=== PATIENT | male | born 1965 | race African-American/Black ===

== ENCOUNTER → 2020-06-26 07:39 | Outpatient (REF) | payer BC, SELFPAY ==
--- NOTE | 2020-06-26 07:30 | CA_ITS ---
Transthoracic Echocardiogram Patient (Last, First, Middle): Quintin Chacon D Gender: Male Date of : 1965 Age: 55 Procedure Date: 06/26/2020 Procedure Type: Transthoracic Echocardiogram Location: OP Height: 175.26 cm Weight: 94.8 kg BSA: 2.10 m2 Heart Rate: bpm BP: 140 / 80 mmHg Landfill Grader: Gregory MD: Ugo Quintero MD Symptoms: Chronic right heart failure Study Quality: Good ECG Rhythm: Sinus Conclusions: - Moderately increased right ventricular cavity size. There is normal right ventricular systolic function. - The inferior vena cava is normal in size and collapses greater than 50% with inspiration. Findings Right Ventricle Moderately increased right ventricular cavity size. There is normal right ventricular systolic function. There is a pacemaker wire seen in the right ventricle. Tricuspid Valve There is mild tricuspid valve regurgitation. Top normal pulmonary artery pressure. Venous The inferior vena cava is normal in size and collapses greater than 50% with inspiration. Prior Study Comparison Changes noted compared to prior study dated: 04/10/2020. Right atrial pressure seems improved. No definite evidence of right ventricular volume overload. Measurements 2D Linear Measurements RVIDd: 3.55 RVIDd Index: 1.69 Tricuspid Valve TR Pk Andrei: 2.82 TR Pk Grad: 32.00 RA Press: 8.00 RVSP: 35.00 Updated in Other Vendor System with Status of Final Ugo Quintero MD electronically signed on 06/28/2020 12:54:42 PM with status of Final
== END ==
LOC: HO.CARD 07:39
PROVIDERS: Visit Provider Internal Medicine
DX: I50.812 Chronic right heart failure (principal)
CPT/HCPCS: 93308

== ENCOUNTER → 2020-07-10 09:22 | Outpatient (REF) | payer BC, SELFPAY ==
--- NOTE | 2020-07-10 09:30 | CA_ITS ---
Acquisition Time: 2020-07-10 09:34:08 Total Exercise Time: 00:02:00 Test Indications: i50.812 Medications: see chart Protocol: LEXISCAN Max HR: 109 BPM 66% of Pred: 165 BPM Max BP: 118/078 mmHG Max Work Load: 1.0 METS Pharmacological stress test using Lexiscan while sitting. Pt denies any anginal sx. EKG with no change V-paced. Normotensive response to test. However 2min and 31 sec into recovery pt was drinking soda and started spilling his drink and was clenching his hand while holding the cup. Pt's eyes closed, not responding to verbal stimuli. Pt drooling, episode lasted about 10 sec. Normal neuro checks, post episode, pt atert and orientd after the episode. Suspected seizure activity VS TIA called ED, spoke with Dr. Oleary,. Pt send with A RN in . Pt agreable to plan of care at this point. Nuclear portion on hold till pt is evaluated in the ED. Reviewed with Dr. Gutierrez. Referred By: Ugo Quintero Overread By: Gema Simons
== END ==
LOC: HO.CARD 09:22
PROVIDERS: Visit Provider Internal Medicine
DX: I50.812 Chronic right heart failure (principal); I44.30 Unspecified atrioventricular block; I10 Essential (primary) hypertension; E11.8 Type 2 diabetes mellitus with unspecified complications; E78.5 Hyperlipidemia, unspecified; Z95.0 Presence of cardiac pacemaker
CPT/HCPCS: 93017; J0280; J2785

== ENCOUNTER 2020-07-10 10:46 | Emergency (ER) | payer BC, SELFPAY ==
[2020-07-10 10:55] VITALS: PULSE 83; RESP 17; TEMP 36.8; O2SAT 99; BMI 31.6
--- NOTE | 2020-07-10 11:34 | CT_ITS ---
EXAMINATION: CT HEAD WITHOUT CONTRAST CLINICAL INFORMATION: First time seizure. Age 55. COMPARISON: None TECHNIQUE: Contiguous axial imaging was performed from the skull base to vertex without intravenous administration of contrast. Additional 2-D coronal and sagittal reformatted images are generated on the CT workstation and uploaded to PACS. Some images through the top of the head are repeated due to initial motion. DOSE LOWERING TECHNIQUES: This CT examination was performed using dose optimization techniques as appropriate, variously including the following: *Automated exposure control *Adjustment of mA and/or kV according to patient size (this includes techniques or standardized protocols for targeted exams where dose is matched to indication/reason for exam; i.e. extremities or head) *Use of iterative reconstruction technique DLP: 1093 mGy-cm FINDINGS: There is no intracranial hemorrhage, hematoma, or extra-axial fluid collection. The ventricles are normal in size. There is no hydrocephalus, edema, or mass effect. The tracy-white matter differentiation appears symmetric. There is no visible acute territorial infarct or mass lesion. The calvarium appears intact. There is no pneumocephalus or orbital emphysema. The visualized sinuses and middle ears and mastoid air cells show no significant mucosal thickening. There are no air-fluid levels. CT/CT head/brain wo con IMPRESSION: No acute intracranial abnormality.
[2020-07-10 11:54] LABS: Glucose, Whole Blood 156 mg/dL (60-115)
[2020-07-10 11:57] LABS: MANUAL DIFF FLAG NO
[2020-07-10 12:01] LABS: Basophils Percent Auto 0.6 % (0-2); Eosinophils Absolute Auto 0.1 X10*3/uL (0.0-0.4); Eosinophils Percent Auto 0.9 % (0-4); Hematocrit 33.6 % (42-52); Hemoglobin 10.7 g/dl (14.0-18.0); Imm Gran Abs Auto 0.02 X10*3/uL (0.00-0.03); Imm Gran Pct Auto 0.4 % (0.0-0.4); Lymphocytes Absolute Auto 0.9 X10*3/uL (1.2-4.9); Mean Corpuscular HGB Conc 31.8 g/dl (31.0-36.0); Mean Corpuscular Hemoglobin 25.6 pg (27.0-33.0); Mean Corpuscular Volume 80.4 fL (80-98); Monocytes Absolute Auto 0.6 X10*3/uL (0.1-1.2); Monocytes Percent Auto 11.2 % (2-11); Neutrophils Absolute Auto 3.9 X10*3/uL (2.0-8.3); Neutrophils Percent Auto 70.9 % (45-73); Platelet Count 205 X10*3/uL (160-400); Red Blood Count 4.18 X10*6/uL (4.60-5.80); Red Cell Distribution Width 13.5 % (11.0-16.0); White Blood Count 5.4 X10*3/uL (4.8-10.8)
--- NOTE | 2020-07-10 12:01 | ED_ITS ---
HPI - General Adult General Chief complaint: Seizure Stated complaint: Seizure Time Seen by Provider: 07/10/20 11:14 Source: patient Mode of arrival: wheelchair Limitations: no limitations History of Present Illness HPI narrative: Patient comes to the emergency room after having as seizure. Earlier this morning, patient was in a stress test with Lexiscan IV, per cardiology staff report, patient had seizure-like activity including teeth clenching, looking up of upper extremity joints. Patient does not remember this. Patient states he feels tired. Patient does not have history of any seizures. At this time, patient feels within normal limits. Related Data Previous Rx's Medication Instructions Recorded hydralazine 100 mg tablet 100 mg PO TID 30 Days #90 tab 06/25/20 spironolactone 25 mg tablet 50 mg PO QAM #30 tab 07/03/20 bumetanide 1 mg tablet 2 mg PO BID #60 tab 07/08/20 Allergies Allergy/AdvReac Type Severity Reaction Status Date / Time No Known Allergies Allergy Unverified 07/03/20 12:01 N.K.D.A. Allergy Unknown Uncoded 07/03/20 12:01 Review of Systems Review of Systems: Constitutional : No Weight loss, No Fever, No Chills, No Night Sweats, No Fatigue, No Malaise ENT/Mouth : No Hearing loss, No Ear Pain, No Nasal Congestion, No Sinus Pain, No Hoarseness, No sore throat, No Rhinorrhea, No Swallowing Difficulty Eyes: No Eye Pain, No Swelling, No Redness, No Foreign Body, No Discharge, No Vision Changes Cardiovascular : No Chest Pain, No SOB, No Dyspnea on Exertion, No Orthopnea, No Edema, No Palpitations Respiratory : No Cough, No Sputum, No Wheezing, No Smoke Exposure, No Dyspnea Gastrointestinal : No Nausea, No Vomiting, No Diarrhea, No Constipation, No abdominal Pain, No Hematochezia, No Melena Genitourinary : no irregular bleeding, No Dysuria, No Urinary Frequency, No Hematuria, No Urinary Incontinence, No Urgency, No Flank Pain, No Urinary Flow Changes, No Hesitancy Musculoskeletal : No joint pain, No Myalgias, No Joint Swelling Skin : No Skin Lesions, No rash Neuro : No Weakness, No Numbness, No Paresthesias, Possible seizure-like activity Psych : No Anxiety/Panic, No Depression, No SI/HI/AH/VH, No Social Issues, Heme/Lymph: No Bruising, No Bleeding,No Lymphadenopathy Endocrine : No Polyuria, No Polydipsia, No Temperature Intolerance [facility] Past Medical History Medical History (Updated 07/10/20 @ 16:00 by Gloria Oleary MD) CKD (chronic kidney disease) Heart block Hypertension Pacemaker Type 2 diabetes mellitus Social History Social History (System 07/03/20 @ 12:01 by Shahab Ortega) Smoking Status: Never smoker Advance Directives: No Advance Directives Information Provided: Yes Physical Exam Vital Signs: Vital Signs: Vital Signs Temp Pulse Resp BP Pulse Ox 07/10/20 14:00 98.2 F 81 20 164/94 H 07/10/20 10:55 98.2 F 83 17 99 Body Mass Index 31.6 Appearance: Alert. Oriented X3. No acute distress. Eyes: Pupils equal, round and reactive to light. ENT: Pharynx normal. Neck: Normal inspection. Neck supple. No lymph nodes noted. No crepitus CVS: Normal heart rate and rhythm. Pulses normal. Normal S1 and S2 Respiratory: No respiratory distress. Breath sounds normal. No Wheezing. No rales Abdomen: Soft and nontender. No rigidity. No distention. good BS x4 Skin: Skin warm and dry. Normal skin color. Normal skin turgor. Extremities: No lower extremity edema. No lower extremity edema. No Lacerations. No Rash Neuro: Oriented X 3. No motor deficit. No sensory deficit. Moving all extermities. No slurred speech. Course Course Course Narrative: I discussed the labs and imaging with the patient, at this time, seizure is not suspected, patient likely had as near syncopal episode after the chemical stress tests. Since the patient arrived emergency room, he has been completely asymptomatic. Denies any chest pain, no shortness of breath no dizziness. Patient instructed to follow-up with cardiology as he will need to reschedule his health Medical Decision Making MDM Narrative Medical decision making narrative: seizure is not suspected, patient is asymptomatic. Lab Data Result diagrams: 07/10/20 11:50 07/10/20 11:50 Labs: Lab Results 07/10/20 07/10/20 07/10/20 Range/Units 11:46 11:50 11:50 WBC 5.4 (4.8-10.8) X10*3/uL RBC 4.18 L (4.60-5.80) X10*6/uL Hgb 10.7 L (14.0-18.0) g/dl Hct 33.6 L (42-52) % MCV 80.4 (80-98) fL MCH 25.6 L (27.0-33.0) pg MCHC 31.8 (31.0-36.0) g/dl RDW 13.5 (11.0-16.0) % Plt Count 205 (160-400) X10*3/uL MPV 10.0 (9.4-12.4) fL Immature Gran % (Auto) 0.4 (0.0-0.4) % Neut % (Auto) 70.9 (45-73) % Lymph % (Auto) 16.0 L (20-40) % [place] % (Auto) 11.2 H (2-11) % Eos % (Auto) 0.9 (0-4) % Baso % (Auto) 0.6 (0-2) % Lymph # (Auto) 0.9 L (1.2-4.9) X10*3/uL [place] # (Auto) 0.6 (0.1-1.2) X10*3/uL Eos # (Auto) 0.1 (0.0-0.4) X10*3/uL Baso # (Auto) 0.0 (0.0-0.2) X10*3/uL Abs Immat Gran (auto) 0.02 (0.00-0.03) X10*3/uL Absolute Neuts (auto) 3.9 (2.0-8.3) X10*3/uL Absolute Nucleated RBC 0.000 (0.0-0.012) X10*3/uL Nucleated RBC % (auto) 0.0 (0.0-0.2) /100WBC Sodium 135 (135-145) mmol/L Potassium 4.6 (3.3-5.1) mmol/l Chloride 99 (96-108) mmol/L Carbon Dioxide 27 (22-29) mmol/L Anion Gap 14 (12-20) BUN 58 H (9-16) mg/dL Creatinine 2.00 H (0.5-1.4) mg/dL Estim Creat Clear Calc 47.9 Estimated GFR 35 POC Glucose 156 H (60-115) mg/dL Random Glucose 159 H (60-115) mg/dL Lactic Acid (0.5-2.0) mmol/L Calcium 9.0 (8.4-10.2) mg/dL Troponin I High Sens (<3.5-35.0) ng/L 07/10/20 07/10/20 Range/Units 11:50 14:20 WBC (4.8-10.8) X10*3/uL RBC (4.60-5.80) X10*6/uL Hgb (14.0-18.0) g/dl Hct (42-52) % MCV (80-98) fL MCH (27.0-33.0) pg MCHC (31.0-36.0) g/dl RDW (11.0-16.0) % Plt Count (160-400) X10*3/uL MPV (9.4-12.4) fL Immature Gran % (Auto) (0.0-0.4) % Neut % (Auto) (45-73) % Lymph % (Auto) (20-40) % [place] % (Auto) (2-11) % Eos % (Auto) (0-4) % Baso % (Auto) (0-2) % Lymph # (Auto) (1.2-4.9) X10*3/uL [place] # (Auto) (0.1-1.2) X10*3/uL Eos # (Auto) (0.0-0.4) X10*3/uL Baso # (Auto) (0.0-0.2) X10*3/uL Abs Immat Gran (auto) (0.00-0.03) X10*3/uL Absolute Neuts (auto) (2.0-8.3) X10*3/uL Absolute Nucleated RBC (0.0-0.012) X10*3/uL Nucleated RBC % (auto) (0.0-0.2) /100WBC Sodium (135-145) mmol/L Potassium (3.3-5.1) mmol/l Chloride (96-108) mmol/L Carbon Dioxide (22-29) mmol/L Anion Gap (12-20) BUN (9-16) mg/dL Creatinine (0.5-1.4) mg/dL Estim Creat Clear Calc Estimated GFR POC Glucose (60-115) mg/dL Random Glucose (60-115) mg/dL Lactic Acid 1.6 (0.5-2.0) mmol/L Calcium (8.4-10.2) mg/dL Troponin I High Sens 18.2 (<3.5-35.0) ng/L Discharge Plan Discharge Clinical Impression: Near syncope Patient Disposition: Home, Self-Care Instructions: Near Syncope (ED) Additional Instructions: please follow-up with your manager drive, you have an appointment next week. Please follow-up with your primary care physician tomorrow. If you have any worsening or new symptoms, please return to the emergency room or call 911 Prescriptions: No Action hydralazine 100 mg tablet 100 mg PO TID 30 Days Qty: 90 RF: 3 spironolactone 25 mg tablet 50 mg PO QAM Qty: 30 RF: 0 bumetanide 1 mg tablet 2 mg PO BID Qty: 60 RF: 7
[2020-07-10 12:28] LABS: Lactic Acid 1.6 mmol/L (0.5-2.0)
[2020-07-10 12:29] LABS: Anion Gap 14 (12-20); Blood Urea Nitrogen 58 mg/dL (9-16); Carbon Dioxide 27 mmol/L (22-29); Chloride 99 mmol/L (96-108); Creatinine Clr Calc Pharmacy 47.9; Estimated Glomerular Filt Rate 35; Glucose Random 159 mg/dL (60-115); Potassium 4.6 mmol/l (3.3-5.1); Sodium 135 mmol/L (135-145)
[2020-07-10 14:00] VITALS: BP 164/94; PULSE 81; RESP 20; TEMP 36.8
[2020-07-10 15:02] LABS: Troponin-I High Sensitivity 18.2 ng/L (<3.5-35.0)
--- NOTE | 2020-07-10 16:13 | PC.NURSE ---
PT IS ALERT AND ORIENTED NO SEIZURE ACTIVITY NOTED DURING THE ED VISIT
== END 2020-07-10 16:22 | disposition home or self-care (01) ==
PROVIDERS: Emergency Provider Emergency Medicine
DX: R56.9 Unspecified convulsions (principal); R55 Syncope and collapse; I12.9 Hypertensive chronic kidney disease with stage 1 through stage 4 chronic kidney disease, or unspecified chronic kidney disease; E11.22 Type 2 diabetes mellitus with diabetic chronic kidney disease; N18.9 Chronic kidney disease, unspecified; Z79.899 Other long term (current) drug therapy
CPT/HCPCS: 36415; 70450; 80048; 82947; 83605; 84484; 85025; 99284

== ENCOUNTER → 2020-07-31 08:54 | Outpatient (BNVA) | payer BC, SELFPAY | PROVIDERS: Visit Provider Internal Medicine | DX: Z76.89 Persons encountering health services in other specified circumstances (principal) ==

== ENCOUNTER 2020-08-29 08:42 | Outpatient (REF) | payer BC, SELFPAY ==
[2020-08-29 15:44] LABS: Estimated Average Glucose 174 mg/dL; Hemoglobin A1c % 7.7 %
[2020-08-29 16:04] LABS: Anion Gap 12 (12-20); Blood Urea Nitrogen 36 mg/dL (9-16); Calcium 8.5 mg/dL (8.4-10.2); Carbon Dioxide 27 mmol/L (22-29); Chloride 102 mmol/L (96-108); Estimated Glomerular Filt Rate 39; Glucose Random 251 mg/dL (60-115); Potassium 3.9 mmol/l (3.3-5.1); Sodium 137 mmol/L (135-145)
[2020-08-29 16:06] LABS: B Type Natriuretic Peptide 69 pg/mL (<100)
[2020-09-04 06:17] LABS: Fructosamine 324 umol/L (205-285)
== END 2020-08-29 08:43 | disposition home or self-care (01) ==
LOC: HO.LAB 08:42
PROVIDERS: Internal Medicine; PCP Internal Medicine; Referring Provider Internal Medicine; Visit Provider Nurse Practitioner Gerontology
DX: E11.29 Type 2 diabetes mellitus with other diabetic kidney complication (principal); R80.9 Proteinuria, unspecified; E78.5 Hyperlipidemia, unspecified; I10 Essential (primary) hypertension
CPT/HCPCS: 80048; 82985; 83036; 83880

== ENCOUNTER → 2020-09-02 08:33 | Outpatient (BNVA) | payer BC, SELFPAY | PROVIDERS: PCP Internal Medicine; Visit Provider Internal Medicine | DX: Z76.89 Persons encountering health services in other specified circumstances (principal) ==

== ENCOUNTER 2020-12-23 17:22 | Inpatient (IN) | payer BC, SELFPAY ==
--- NOTE | ~2020-12-23 | XR_ITS ---
EXAMINATION: XR TOES, RIGHT CLINICAL INFORMATION: Osteomyelitis COMPARISON: None TECHNIQUE: 3 views of the right toes were obtained. FINDINGS: Degenerative changes are present at the tarsal metatarsal junctions. Mild hallux valgus is present. Vascular calcifications are seen. There is soft tissue swelling present around the fifth toe and there is some mottled lucency present in the proximal fifth phalanx. Cortical destruction is not seen. XR/XR toe RT min 2V IMPRESSION: Mild lucency involving the fifth proximal phalanx. No pathologic fracture is seen. Osteomyelitis would be a consideration. Unfortunately, no prior radiographs are available for comparison.
[2020-12-23 18:07] VITALS: BP 123/70; PULSE 98; RESP 15; TEMP 36.7; O2SAT 98; BMI 34.0
[2020-12-23 21:52] LABS: MANUAL DIFF FLAG NO
[2020-12-23 22:00] VITALS: BP 185/95; PULSE 93; RESP 16; TEMP 37.6; O2SAT 97
[2020-12-23 22:00] LABS: Basophils Percent Auto 0.2 % (0-2); Eosinophils Absolute Auto 0.1 X10*3/uL (0.0-0.4); Eosinophils Percent Auto 0.5 % (0-4); Hematocrit 27.5 % (42-52); Hemoglobin 8.8 g/dl (14.0-18.0); Imm Gran Abs Auto 0.11 X10*3/uL (0.00-0.03); Imm Gran Pct Auto 0.7 % (0.0-0.4); Lymphocytes Absolute Auto 1.3 X10*3/uL (1.2-4.9); Lymphocytes Percent Auto 8.1 % (20-40); Mean Corpuscular Hemoglobin 25.7 pg (27.0-33.0); Mean Corpuscular Volume 80.2 fL (80-98); Mean Platelet Volume 9.9 fL (9.4-12.4); Monocytes Absolute Auto 1.3 X10*3/uL (0.1-1.2); Monocytes Percent Auto 7.7 % (2-11); Neutrophils Absolute Auto 13.7 X10*3/uL (2.0-8.3); Neutrophils Percent Auto 82.8 % (45-73); Platelet Count 364 X10*3/uL (160-400); Red Blood Count 3.43 X10*6/uL (4.60-5.80); Red Cell Distribution Width 12.8 % (11.0-16.0); White Blood Count 16.5 X10*3/uL (4.8-10.8)
[2020-12-23 22:12] LABS: Lactic Acid 0.7 mmol/L (0.5-2.0)
[2020-12-23 22:16] LABS: INTERNATIONAL NORM RATIO 1.2 (0.9-1.1); Prothrombin Time 14.4 SEC (10.8-13.0)
[2020-12-23 22:16] LABS: Alanine Aminotransferase 19 U/L (0-40); Albumin Level 3.5 g/dL (3.5-5.0); Alkaline Phosphatase 67 U/L (39-117); Anion Gap 14 (12-20); Aspartate Amino Transferase 16 U/L (5-37); Bilirubin Direct 0.2 mg/dL (0.0-0.5); Bilirubin Total 0.4 mg/dL (0.0-1.0); Blood Urea Nitrogen 40 mg/dL (9-16); Calcium 8.6 mg/dL (8.4-10.2); Carbon Dioxide 23 mmol/L (22-29); Chloride 101 mmol/L (96-108); Creatinine Clr Calc Pharmacy 51.2; Estimated Glomerular Filt Rate 36; Glucose Random 203 mg/dL (60-115); Potassium 3.9 mmol/L (3.3-5.1); Sodium 134 mmol/L (135-145); Total Protein 7.5 g/dL (6.5-8.0)
[2020-12-23 22:19] LABS: Partial Thromboplastin Time 31.5 SEC (24.1-38.0)
--- NOTE | 2020-12-23 23:26 | ED.EXTPRO ---
HPI - Extremity Problem General Chief complaint: Extremity Problem Stated complaint: toe infection Time Seen by Provider: 12/23/20 23:19 History of Present Illness HPI Narrative: Patient is a 55-year-old male presents today with having pain to the right pinky toe for the last 2 weeks. Increasing swelling. Increasing pain. Patient noticed increased foul odor. Presented to the emergency department further evaluation. No fever no chills. No chest pain or shortness of breath no diaphoresis. No systemic complaints. MD Complaint: extremity pain Related Data Home Medications Medication Instructions Recorded Confirmed isosorbide mononitrate 60 mg 60 mg PO DAILY 07/31/20 09/02/20 tablet,extended release 24 hr tamsulosin 0.4 mg capsule 0.4 mg PO DAILY 07/31/20 09/02/20 alcohol swabs pad TOPICAL 08/29/20 09/02/20 ferrous sulfate 325 mg (65 mg 325 mg PO DAILY 08/29/20 08/29/20 iron) tablet,delayed release insulin glargine 100 unit/mL (3 5 unit SUBCUT ml 08/29/20 09/02/20 mL) subcutaneous pen lancets 33 gauge #100 ea 08/29/20 09/02/20 pen needle, diabetic 32 gauge x #50 ea 08/29/20 09/02/20 Previous Rx's Medication Instructions Recorded amlodipine 10 mg tablet 10 mg PO DAILY 90 Days #90 tab 08/22/20 hydralazine 100 mg tablet 100 mg PO TID 30 Days #90 tab 08/28/20 atorvastatin 40 mg tablet 40 mg PO BEDTIME #90 tab 08/29/20 metformin 500 mg tablet 500 mg PO BID #180 tab 08/29/20 labetalol 100 mg tablet 100 mg PO BID #180 tab 10/15/20 blood sugar diagnostic 1 strip MISCELLANEOUS TID 30 Days 10/26/20 #100 strip bumetanide 1 mg tablet 2 mg PO BID #60 tab 12/12/20 spironolactone 25 mg tablet 50 mg PO QAM #30 tab 12/17/20 Allergies Allergy/AdvReac Type Severity Reaction Status Date / Time regadenoson [From [employer]] AdvReac Severe seizure Verified 12/23/20 14:51 type activity Review of Systems Review of Systems: Constitutional: No Weight loss, No Fever, No Chills, No Night Sweats, No Fatigue, No Malaise ENT/Mouth: No Hearing loss, No Ear Pain, No Nasal Congestion, No Sinus Pain, No Hoarseness, No sore throat, No Rhinorrhea, No Swallowing Difficulty Eyes: No Eye Pain, No Swelling, No Redness, No Foreign Body, No Discharge, No Vision Changes Cardiovascular: No Chest Pain, No SOB, No Dyspnea on Exertion, No Orthopnea, No Edema, No Palpitations Respiratory: No Cough, No Sputum, No Wheezing, No Smoke Exposure, No Dyspnea Gastrointestinal: No Nausea, No Vomiting, No Diarrhea, No Constipation, No abdominal Pain, No Hematochezia, No Melena Genitourinary: no irregular bleeding, No Dysuria, No Urinary Frequency, No Hematuria, No Urinary Incontinence, No Urgency, No Flank Pain, No Urinary Flow Changes, No Hesitancy Musculoskeletal: No joint pain, No Myalgias, No Joint Swelling Skin: Positive necrotic toe right 5th digit Neuro: No Weakness, No Numbness, No Paresthesias, No Loss of Consciousness, No Dizziness, No Headache Psych: No Anxiety/Panic, No Depression, No SI/HI/AH/VH, No Social Issues, Heme/Lymph: No Bruising, No Bleeding,No Lymphadenopathy Endocrine: No Polyuria, No Polydipsia, No Temperature Intolerance [facility] Past Medical History Medical History BPH (benign prostatic hyperplasia) CHF (congestive heart failure) Chronic right heart failure CKD (chronic kidney disease) Complete heart block Essential hypertension Heart block Hyperlipidemia Hypertension Normally functioning cardiac pacemaker present Pacemaker Proteinuria Type 2 diabetes mellitus Type 2 diabetes mellitus with other diabetic kidney complication Surgical History History of cardiac pacemaker (~04/15/20) Family History Family History Mother CVA (cerebral vascular accident) Diabetes Social History Social History Smoking Status: Never smoker Advance Directives: No Advance Directives Information Provided: No Physical Exam Vital Signs: Vital Signs: Last Vital Signs Temp 99.6 F 12/23/20 22:00 Pulse 93 12/23/20 22:00 Resp 16 12/23/20 22:00 BP 185/95 H 12/23/20 22:00 Pulse Ox 97 12/23/20 22:00 Body Mass Index 34.0 Appearance: Alert. Oriented X3. No acute distress. Eyes: Pupils equal, round and reactive to light. ENT: Pharynx normal. Neck: Normal inspection. Neck supple. No lymph nodes noted. No crepitus CVS: Normal heart rate and rhythm. Pulses normal. Normal S1 and S2 Respiratory: No respiratory distress. Breath sounds normal. No Wheezing. No rales Abdomen: Soft and nontender. No rigidity. No distention. good BS x4 Skin: Skin warm and dry. Normal skin color. Normal skin turgor. Extremities: Sensation over the right foot intact. There is pulse 2 +at dorsalis pedis. The right 5th toe is grossly necrotic. With the purulent odor. Position sense and motor intact in tow 1 through 4. Neuro: Oriented X 3. No motor deficit. No sensory deficit. Moving all extermities. No slurred speech MDM - Extremity (Nontraumatic) MDM Narrative Medical decision making narrative: Necrotic 5th toe with elevated white count. Lactate is normal no evidence for severe sepsis. Will start antibiotics. Will admit for further evaluation. Case discussed with hospitalist. Lab Data Result diagrams: 12/23/20 21:42 12/23/20 21:42 Labs: Lab Results 12/23/20 12/23/20 12/23/20 Range/Units 21:42 21:42 21:43 WBC 16.5 H (4.8-10.8) X10*3/uL RBC 3.43 L (4.60-5.80) X10*6/uL Hgb 8.8 L (14.0-18.0) g/dl Hct 27.5 L (42-52) % MCV 80.2 (80-98) fL MCH 25.7 L (27.0-33.0) pg MCHC 32.0 (31.0-36.0) g/dl RDW 12.8 (11.0-16.0) % Plt Count 364 D (160-400) X10*3/uL MPV 9.9 (9.4-12.4) fL Immature Gran % (Auto) 0.7 H (0.0-0.4) % Neut % (Auto) 82.8 H (45-73) % Lymph % (Auto) 8.1 L (20-40) % [place] % (Auto) 7.7 (2-11) % Eos % (Auto) 0.5 (0-4) % Baso % (Auto) 0.2 (0-2) % Lymph # (Auto) 1.3 (1.2-4.9) X10*3/uL [place] # (Auto) 1.3 H (0.1-1.2) X10*3/uL Eos # (Auto) 0.1 (0.0-0.4) X10*3/uL Baso # (Auto) 0.0 (0.0-0.2) X10*3/uL Abs Immat Gran (auto) 0.11 H (0.00-0.03) X10*3/uL Absolute Neuts (auto) 13.7 H (2.0-8.3) X10*3/uL Absolute Nucleated RBC 0.000 (0.0-0.012) X10*3/uL Nucleated RBC % (auto) 0.0 (0.0-0.2) /100WBC PT 14.4 H (10.8-13.0) SEC INR 1.2 H (0.9-1.1) APTT 31.5 (24.1-38.0) SEC Sodium 134 L (135-145) mmol/L Potassium 3.9 (3.3-5.1) mmol/L Chloride 101 (96-108) mmol/L Carbon Dioxide 23 (22-29) mmol/L Anion Gap 14 (12-20) BUN 40 H (9-16) mg/dL Creatinine 1.94 H (0.5-1.4) mg/dL Estim Creat Clear Calc 51.2 Estimated GFR 36 Random Glucose 203 H (60-115) mg/dL Lactic Acid (0.5-2.0) mmol/L Calcium 8.6 (8.4-10.2) mg/dL Total Bilirubin 0.4 (0.0-1.0) mg/dL Direct Bilirubin 0.2 (0.0-0.5) mg/dL AST 16 (5-37) U/L ALT 19 (0-40) U/L Alkaline Phosphatase 67 (39-117) U/L Total Protein 7.5 (6.5-8.0) g/dL Albumin 3.5 (3.5-5.0) g/dL 12/23/20 Range/Units 21:43 WBC (4.8-10.8) X10*3/uL RBC (4.60-5.80) X10*6/uL Hgb (14.0-18.0) g/dl Hct (42-52) % MCV (80-98) fL MCH (27.0-33.0) pg MCHC (31.0-36.0) g/dl RDW (11.0-16.0) % Plt Count (160-400) X10*3/uL MPV (9.4-12.4) fL Immature Gran % (Auto) (0.0-0.4) % Neut % (Auto) (45-73) % Lymph % (Auto) (20-40) % [place] % (Auto) (2-11) % Eos % (Auto) (0-4) % Baso % (Auto) (0-2) % Lymph # (Auto) (1.2-4.9) X10*3/uL [place] # (Auto) (0.1-1.2) X10*3/uL Eos # (Auto) (0.0-0.4) X10*3/uL Baso # (Auto) (0.0-0.2) X10*3/uL Abs Immat Gran (auto) (0.00-0.03) X10*3/uL Absolute Neuts (auto) (2.0-8.3) X10*3/uL Absolute Nucleated RBC (0.0-0.012) X10*3/uL Nucleated RBC % (auto) (0.0-0.2) /100WBC PT (10.8-13.0) SEC INR (0.9-1.1) APTT (24.1-38.0) SEC Sodium (135-145) mmol/L Potassium (3.3-5.1) mmol/L Chloride (96-108) mmol/L Carbon Dioxide (22-29) mmol/L Anion Gap (12-20) BUN (9-16) mg/dL Creatinine (0.5-1.4) mg/dL Estim Creat Clear Calc Estimated GFR Random Glucose (60-115) mg/dL Lactic Acid 0.7 (0.5-2.0) mmol/L Calcium (8.4-10.2) mg/dL Total Bilirubin (0.0-1.0) mg/dL Direct Bilirubin (0.0-0.5) mg/dL AST (5-37) U/L ALT (0-40) U/L Alkaline Phosphatase (39-117) U/L Total Protein (6.5-8.0) g/dL Albumin (3.5-5.0) g/dL Discharge Plan Discharge Clinical Impression: Diabetic foot ulcer Prescriptions: No Action amlodipine 10 mg tablet 10 mg PO DAILY 90 Days Qty: 90 RF: 1 hydralazine 100 mg tablet 100 mg PO TID 30 Days Qty: 90 RF: 3 labetalol 100 mg tablet 100 mg PO BID Qty: 180 RF: 2 blood sugar diagnostic [[employer] test strips] Strip 1 strip miscellaneous TID 30 Days Qty: 100 RF: 11 bumetanide 1 mg tablet 2 mg PO BID Qty: 60 RF: 2 spironolactone 25 mg tablet 50 mg PO QAM Qty: 30 RF: 2 alcohol swabs Pads, Medicated topical RF: 0 (DME) lancets 33 gauge misc See Rx Instructions gauge .ROUTE .MEDSUPPLY Qty: 100 RF: 0 (DME) pen needle, diabetic 32 gauge x 5/32 needle See Rx Instructions ea subcut DAILY Qty: 50 RF: 0 ferrous sulfate 325 mg (65 mg iron) tablet,delayed release (DR/EC) 325 mg PO DAILY RF: 0 metformin 500 mg tablet 500 mg PO BID Qty: 180 RF: 1 atorvastatin 40 mg tablet 40 mg PO BEDTIME Qty: 90 RF: 1 tamsulosin 0.4 mg capsule 0.4 mg PO DAILY RF: 0 isosorbide mononitrate 60 mg tablet extended release 24 hr 60 mg PO DAILY RF: 0 insulin glargine 100 unit/mL (3 mL) insulin pen 5 unit subcut RF: 0
[2020-12-24] VITALS (8 sets, daily range): BP systolic 125–160; BP diastolic 64–88; PULSE 86–113; RESP 16–18; TEMP 36.4–38.2; O2SAT 91–99
[2020-12-24] MEDS: Piperacillin Sodium/Tazobactam 4.5 GM in 0.9 % Sodium Chloride 100 ML IV
[2020-12-24 01:20] LABS: Erythrocyte Sedimentation Rate 102 MM/HR (0-15)
[2020-12-24] MEDS: vancomycin HCL 1,500 MG in 0.9 % Sodium Chloride 500 ML 333.33 MG IV (02:38)
[2020-12-24 06:00] LABS: MANUAL DIFF FLAG NO
[2020-12-24 06:11] LABS: Basophils Absolute Auto 0.1 X10*3/uL (0.0-0.2); Basophils Percent Auto 0.3 % (0-2); Eosinophils Absolute Auto 0.1 X10*3/uL (0.0-0.4); Eosinophils Percent Auto 0.5 % (0-4); Hematocrit 26.2 % (42-52); Hemoglobin 8.5 g/dl (14.0-18.0); Imm Gran Abs Auto 0.09 X10*3/uL (0.00-0.03); Imm Gran Pct Auto 0.6 % (0.0-0.4); Lymphocytes Absolute Auto 1.1 X10*3/uL (1.2-4.9); Lymphocytes Percent Auto 7.1 % (20-40); Mean Corpuscular HGB Conc 32.4 g/dl (31.0-36.0); Mean Corpuscular Volume 80.1 fL (80-98); Mean Platelet Volume 9.9 fL (9.4-12.4); Monocytes Absolute Auto 1.2 X10*3/uL (0.1-1.2); Monocytes Percent Auto 8.2 % (2-11); Neutrophils Absolute Auto 12.4 X10*3/uL (2.0-8.3); Neutrophils Percent Auto 83.3 % (45-73); Platelet Count 347 X10*3/uL (160-400); Red Blood Count 3.27 X10*6/uL (4.60-5.80); Red Cell Distribution Width 12.7 % (11.0-16.0); White Blood Count 14.9 X10*3/uL (4.8-10.8)
--- NOTE | 2020-12-24 06:17 | P.HPHOSP_ITS ---
History of Present Illness Date of Service: 12/23/20 Chief Complaint: Toe infection This is a 55-year-old male with past medical history of CHF, CKD, diabetes, HTN, HLD, heart block status post pacemaker, BPH presents to the hospital with complaints of toe infection. Patient reports that he noticed his right small toe to be turning black as well as painful. Patient reports that he had a blister on the, had covered for the past 2 weeks but noticed that he was getting worse, more painful, and turning black with discoloration and drainage. He denies any fever or chills, he denies any chest pain, no shortness of breath, no abdominal pain nausea or vomiting, no diarrhea constipation, no urinary symptoms. No headache or change in vision. No numbness tingling or weakness. On arrival to the ED hemodynamically stable with no significant abnormal vitals. Labs are significant for WBC count of 16.5, hemoglobin of 8.8 with hematocrit of 27.5 (hemoglobin of 10.7 in 07/08), ESR of 102, sodium of 134, potassium of 3.9, BUN of 40, creatinine of 1.94 which is around his baseline, COVID-19 negative, Toe x-ray shows mild lucency involving the 5th proximal phalanx no pathological fracture seen. Osteomyelitis would be consideration. Review of Systems Review of Systems: Yes all other systems are reviewed and are negative [facility] Medical History BPH (benign prostatic hyperplasia) CHF (congestive heart failure) Chronic right heart failure CKD (chronic kidney disease) Complete heart block Essential hypertension Heart block Hyperlipidemia Hypertension Normally functioning cardiac pacemaker present Pacemaker Proteinuria Type 2 diabetes mellitus Type 2 diabetes mellitus with other diabetic kidney complication Family History Mother CVA (cerebral vascular accident) Diabetes Surgical History History of cardiac pacemaker (~04/15/20) Social History Smoking Status: Never smoker Advance Directives: No Advance Directives Information Provided: No Meds Allergies Allergy/AdvReac Type Severity Reaction Status Date / Time regadenoson [From Lexiscan] AdvReac Severe seizure Verified 12/23/20 14:51 type activity Active Medications: Current Medications Generic Name Dose Route Start Last Admin Trade Name Freq PRN Reason Stop Dose Admin Acetaminophen 650 mg 12/24/20 01:38 Acetaminophen 325 Mg Tablet PO Q6H PRN Pain, Mild (Pain Scale 1-3) Docusate Sodium 100 mg 12/24/20 01:38 Docusate Sodium 100 Mg Capsule PO DAILY PRN Constipation Heparin Sodium (Porcine) 5,000 unit 12/24/20 02:00 12/24/20 02:38 Heparin Sodium,Porcine 5,000 Unit/Ml Vial SUBCUT Not Given Q12H JANET Piperacillin Sod/Tazobactam 50 mls @ 100 mls/hr 12/24/20 06:00 Sod 3.375 gm/ Sodium Chloride IV Q6H JANET Morphine Sulfate 4 mg 12/24/20 01:38 Morphine Sulfate 4 Mg/Ml Cartridge IVPUSH Q4H PRN Pain, Severe (Pain Scale 7-10) Ondansetron HCl 4 mg 12/24/20 01:38 Ondansetron Hcl 4 Mg/2 Ml Vial IVPUSH Q8H PRN Nausea and Vomiting Pharmacy Consult 1 each 12/23/20 23:25 Consult Rx Perform Med Rec MISCELLANE ONCE PRN Consult order Pharmacy Consult 1 each 12/24/20 01:38 Consult Rx Vancomycin Dosing MISCELLANE DAILY PRN Consult order Sodium Chloride 3 ml 12/24/20 01:38 12/24/20 02:04 0.9 % Sodium Chloride Flush 3 Ml Syringe IVFLUSH Not Given QSHIFT [facility] Home Medications Medication Instructions Recorded Confirmed Last Taken Type isosorbide mononitrate 60 mg 60 mg PO DAILY 07/31/20 12/24/20 12/23/20 History tablet,extended release 24 hr tamsulosin 0.4 mg capsule 0.4 mg PO DAILY 07/31/20 12/24/20 12/23/20 History alcohol swabs pad TOPICAL 08/29/20 09/02/20 12/23/20 History ferrous sulfate 325 mg (65 mg 325 mg PO DAILY 08/29/20 12/24/20 12/23/20 History iron) tablet,delayed release insulin glargine 100 unit/mL (3 5 unit SUBCUT ml 08/29/20 09/02/20 12/23/20 History mL) subcutaneous pen lancets 33 gauge #100 ea 08/29/20 09/02/20 12/23/20 History pen needle, diabetic 32 gauge x #50 ea 08/29/20 09/02/20 12/23/20 History Physical Exam Vital Signs and Narrative: Vital Signs: Last Vital Signs Temp 99.4 F 12/24/20 05:11 Pulse 90 12/24/20 05:11 Resp 16 12/24/20 05:11 BP 160/80 H 12/24/20 05:11 Pulse Ox 98 12/24/20 05:11 Body Mass Index 34.0 Const: General: cooperative and no acute distress Orientati on/consciousness: patient oriented x3 Eyes: General: appearance normal, both eyes and all related structures Resp: Effort & Inspection: normal respiratory effort and able to speak in complete sentences Cardio: Rate: regular rate Rhythm: regular rhythm GI: Palpation (GI): Soft to palpation Auscultation: normal bowel sounds Neuro: General: patient oriented x3 Cognition (Neuro): normal cognition Extrem: Other: Right proximal 5th phalanx discoloration, black scab, drainage, warmth, very painful Palpable pulses bilaterally General: Yes no pedal edema Results Labs CBC and Chem 7: 12/24/20 05:54 12/23/20 21:42 Labs: Laboratory Results - last 24 hr 12/23/20 12/23/20 12/23/20 21:42 21:42 21:42 MCV 80.2 MCH 25.7 L MCHC 32.0 RDW 12.8 Plt Count 364 D MPV 9.9 Immature Gran % (Auto) 0.7 H Neut % (Auto) 82.8 H Lymph % (Auto) 8.1 L [place] % (Auto) 7.7 Eos % (Auto) 0.5 Baso % (Auto) 0.2 Lymph # (Auto) 1.3 [place] # (Auto) 1.3 H Eos # (Auto) 0.1 Baso # (Auto) 0.0 Abs Immat Gran (auto) 0.11 H Absolute Neuts (auto) 13.7 H Absolute Nucleated RBC 0.000 Nucleated RBC % (auto) 0.0 ESR 102 H PT INR APTT Anion Gap 14 Estim Creat Clear Calc 51.2 Estimated GFR 36 Random Glucose 203 H Lactic Acid Calcium 8.6 Total Bilirubin 0.4 Direct Bilirubin 0.2 AST 16 ALT 19 Alkaline Phosphatase 67 Total Protein 7.5 Albumin 3.5 12/23/20 12/23/20 12/24/20 21:43 21:43 05:54 MCV 80.1 MCH 26.0 L MCHC 32.4 RDW 12.7 Plt Count 347 MPV 9.9 Immature Gran % (Auto) 0.6 H Neut % (Auto) 83.3 H Lymph % (Auto) 7.1 L [place] % (Auto) 8.2 Eos % (Auto) 0.5 Baso % (Auto) 0.3 Lymph # (Auto) 1.1 L [place] # (Auto) 1.2 Eos # (Auto) 0.1 Baso # (Auto) 0.1 Abs Immat Gran (auto) 0.09 H Absolute Neuts (auto) 12.4 H Absolute Nucleated RBC 0.000 Nucleated RBC % (auto) 0.0 ESR PT 14.4 H INR 1.2 H APTT 31.5 Anion Gap Estim Creat Clear Calc Estimated GFR Random Glucose Lactic Acid 0.7 Calcium Total Bilirubin Direct Bilirubin AST ALT Alkaline Phosphatase Total Protein Albumin Imaging Radiologist's Impressions: Impressions Toe X-Ray 12/23/20 23:34 IMPRESSION: Mild lucency involving the fifth proximal phalanx. No pathologic fracture is seen. Osteomyelitis would be a consideration. Unfortunately, no prior radiographs are available for comparison. Assessment and Plan (1) Diabetic foot ulcer: Status: Acute This is a 55-year-old male with past medical history of diabetes who presents to the hospital with right 5th toe infection # diabetic foot ulcer - right 5th toe, discoloration, almost appears necrotic, - elevated ESR, will add CRP - good pedal pulses - will start him on broad-spectrum IV antibiotics with Zosyn and vancomycin given his history of diabetes - cannot obtain MRI as patient has pacemaker - will consult ID - surgical consult # diabetes mellitus - diabetic diet - low dose sliding scale insulin - hold metformin # history of CHF - not in exacerbation - continue home medications of Bumex, Imdur, labetalol, spironolactone, # hypertension - stable - continue hydralazine, amlodipine, spironolactone # heart block - status post pacemaker DVT prophylaxis: scds in anticipation of surgery
[2020-12-24 06:33] LABS: COVID-19 Test Negative (Negative)
[2020-12-24 06:37] LABS: Anion Gap 11 (12-20); Blood Urea Nitrogen 33 mg/dL (9-16); Calcium 8.2 mg/dL (8.4-10.2); Carbon Dioxide 25 mmol/L (22-29); Chloride 102 mmol/L (96-108); Creatinine Clr Calc Pharmacy 59.4; Estimated Glomerular Filt Rate 43; Glucose Random 217 mg/dL (60-115); Potassium 3.9 mmol/L (3.3-5.1); Sodium 134 mmol/L (135-145)
[2020-12-24] MEDS: Piperacillin Sodium/Tazobactam 3.375 GM in 0.9 % Sodium Chloride 50 ML IV ×4 (07:16→23:53)
[2020-12-24] MEDS: 0.9 % Sodium Chloride Flush 3 ML SYRINGE IVFLUSH ×3 (07:16→21:31)
[2020-12-24 07:25] LABS: Glucose, Whole Blood 193 mg/dL (60-115)
--- NOTE | 2020-12-24 07:56 | P.CONGS_ITS ---
History of Present Illness Consult details Consult date: 12/24/20 Requesting physician: Emy Barry Narrative: Quintin Chacon is a 55-year-old male patient with a known history of diabetes, poorly controlled presenting with complaints of bleeding and discharge from his right 5th toe. The infection 1st began approximately 2 weeks ago and he tried treating himself with bandages however he noted the skin to be increasingly becoming dark in the discharge becoming more purulent. He denies a previous history of infections in his foot or previous foot surgery. His past medical history is also significant for congestive heart failure, chronic kidney disease, diabetes mellitus, hypertension and heart block. He recently underwent a pacemaker placement. He presented to the emergency department and a plain x- ray of the foot obtained. This showed mild lucency of the 5th proximal phalanx with no evidence of fracture but the possibility of osteomyelitis. He is scheduled for MRI of the foot. WBC was elevated at 16.5. Review of Systems Constitutional: Constitutional: Denies chills, Denies fever(s), Denies headache(s) and Denies poor appetite ENT: Denies dizziness and Denies headache(s) Cardiovascular: Cardiovascular: Denies chest pain, Denies rapid heart rate, De nies palpitations and Reports slow heart rate Respiratory: Respiratory: Denies chest congestion, Denies cough, Denies pain on inspiration and Denies wheezing Gastrointestinal: Gastrointestinal: Denies abdominal pain, Denies bloating, Denies change in stool character, Denies constipation, Denies diarrhea, Denies nausea, Denies vomiting and Denies hematemesis Musculoskeletal: Musculoskeletal: Denies back pain, Denies arthralgias, Denies joint swelling and Denies numbness Integumentary/Breasts: Skin/Breast: Denies change in pigmentation, Reports erythema and Reports rash Neurologic: Denies dizziness, Denies headache(s) and Denies numbness Psychiatric: Psychiatric: Denies anxiety and Denies depression Endocrine: Endocrine: Denies palpitations Hematologic/Lymphatic: Hematologic/Lymphatic: Denies easy bleeding, Denies easy bruising and Denies lymphadenopathy Allergic/Immunologic: Allergic/Immunologic: Denies wheezing PMFSH Past Medical History Medical History BPH (benign prostatic hyperplasia) CHF (congestive heart failure) Chronic right heart failure CKD (chronic kidney disease) Complete heart block Essential hypertension Heart block Hyperlipidemia Hypertension Normally functioning cardiac pacemaker present Pacemaker Proteinuria Type 2 diabetes mellitus Type 2 diabetes mellitus with other diabetic kidney complication Family History Family History Mother CVA (cerebral vascular accident) Diabetes Surgical History Surgical History History of cardiac pacemaker (~04/15/20) Social History Social History Smoking Status: Never smoker Advance Directives: No Advance Directives Information Provided: No Meds Allergies Allergy/AdvReac Type Severity Reaction Status Date / Time regadenoson [From [employer]] AdvReac Severe seizure Verified 12/23/20 14:51 type activity Active Medications: Current Medications Generic Name Dose Route Start Last Admin Trade Name Freq PRN Reason Stop Dose Admin Acetaminophen 650 mg 12/24/20 01:38 Acetaminophen 325 Mg Tablet PO Q6H PRN Pain, Mild (Pain Scale 1-3) Docusate Sodium 100 mg 12/24/20 01:38 Docusate Sodium 100 Mg Capsule PO DAILY PRN Constipation Piperacillin Sod/Tazobactam 50 mls @ 100 mls/hr 12/24/20 06:00 12/24/20 07:16 Sod 3.375 gm/ Sodium Chloride IV 100 mls/hr Q6H JANET Administration Insulin Human Lispro 0 unit 12/24/20 07:30 12/24/20 07:17 Insulin Lispro 100 Unit/Ml 3 Ml Vial SUBCUT Not Given QIDACHS [facility] Protocol Morphine Sulfate 4 mg 12/24/20 01:38 Morphine Sulfate 4 Mg/Ml Cartridge IVPUSH Q4H PRN Pain, Severe (Pain Scale 7-10) Ondansetron HCl 4 mg 12/24/20 01:38 Ondansetron Hcl 4 Mg/2 Ml Vial IVPUSH Q8H PRN Nausea and Vomiting Pharmacy Consult 1 each 12/23/20 23:25 Consult Rx Perform Med Rec MISCELLANE ONCE PRN Consult order Pharmacy Consult 1 each 12/24/20 01:38 Consult Rx Vancomycin Dosing MISCELLANE DAILY PRN Consult order Sodium Chloride 3 ml 12/24/20 01:38 12/24/20 07:16 0.9 % Sodium Chloride Flush 3 Ml Syringe IVFLUSH 3 ml QSSDFT [facility] Administration Home Medications Medication Instructions Recorded Confirmed Last Taken Type isosorbide mononitrate 60 mg 60 mg PO DAILY 07/31/20 12/24/20 12/23/20 History tablet,extended release 24 hr tamsulosin 0.4 mg capsule 0.4 mg PO DAILY 07/31/20 12/24/20 12/23/20 History alcohol swabs pad TOPICAL 08/29/20 09/02/20 12/23/20 History ferrous sulfate 325 mg (65 mg 325 mg PO DAILY 08/29/20 12/24/20 12/23/20 History iron) tablet,delayed release insulin glargine 100 unit/mL (3 5 unit SUBCUT ml 08/29/20 09/02/20 12/23/20 History mL) subcutaneous pen lancets 33 gauge #100 ea 08/29/20 09/02/20 12/23/20 History pen needle, diabetic 32 gauge x #50 ea 08/29/20 09/02/20 12/23/20 History Physical Exam Vital Signs: Vital Signs: Last Vital Signs Temp 98.9 F 12/24/20 07:08 Pulse 91 12/24/20 07:08 Resp 16 12/24/20 07:08 BP 142/77 H 12/24/20 07:08 Pulse Ox 98 12/24/20 07:08 Body Mass Index 34.0 Const: General: cooperative, comfortable and well developed Nutritional Appearance: well nourished Orientation/consciousness: patient oriented x3 Eyes: Sclerae: sclerae normal EOM: EOMs intact bilaterally Neck: Neck: Yes normal visual inspection Resp: Effort & Inspection: normal respiratory effort, no cough, no respiratory distress and no stridor Cardio: Jugular venous distension: no JVD GI: Inspection: Yes normal to inspection Palpation (GI): Soft to palpation, nontender, no guarding and not rigid Skin: General skin exam: dry skin Rashes: no rashes Neuro: General: patient oriented x3 and no focal motor deficits Extrem: Other: Right foot 5th toe with evidence of skin necrosis involving the distal phalanx with ulceration at the base. There is swelling in the surrounding skin but no erythema extending proximally. The remaining toes are clean and intact. Ankle/foot/toe images: 1. Infected 5th toe right foot Psych: Appearance: grossly normal Results Labs Result diagrams: 12/24/20 05:54 12/24/20 05:54 Labs: Abnormal lab results 12/23/20 12/23/20 12/23/20 Range/Units 21:42 21:42 21:42 WBC 16.5 H (4.8-10.8) X10*3/uL RBC 3.43 L (4.60-5.80) X10*6/uL Hgb 8.8 L (14.0-18.0) g/dl Hct 27.5 L (42-52) % MCH 25.7 L (27.0-33.0) pg Immature Gran % (Auto) 0.7 H (0.0-0.4) % Neut % (Auto) 82.8 H (45-73) % Lymph % (Auto) 8.1 L (20-40) % Lymph # (Auto) (1.2-4.9) X10*3/uL [place] # (Auto) 1.3 H (0.1-1.2) X10*3/uL Abs Immat Gran (auto) 0.11 H (0.00-0.03) X10*3/uL Absolute Neuts (auto) 13.7 H (2.0-8.3) X10*3/uL ESR 102 H (0-15) MM/HR PT (10.8-13.0) SEC INR (0.9-1.1) Sodium 134 L (135-145) mmol/L Anion Gap (12-20) BUN 40 H (9-16) mg/dL Creatinine 1.94 H (0.5-1.4) mg/dL POC Glucose (60-115) mg/dL Random Glucose 203 H (60-115) mg/dL Calcium (8.4-10.2) mg/dL 12/23/20 12/24/20 12/24/20 Range/Units 21:43 05:54 05:54 WBC 14.9 H (4.8-10.8) X10*3/uL RBC 3.27 L (4.60-5.80) X10*6/uL Hgb 8.5 L (14.0-18.0) g/dl Hct 26.2 L (42-52) % MCH 26.0 L (27.0-33.0) pg Immature Gran % (Auto) 0.6 H (0.0-0.4) % Neut % (Auto) 83.3 H (45-73) % Lymph % (Auto) 7.1 L (20-40) % Lymph # (Auto) 1.1 L (1.2-4.9) X10*3/uL [place] # (Auto) (0.1-1.2) X10*3/uL Abs Immat Gran (auto) 0.09 H (0.00-0.03) X10*3/uL Absolute Neuts (auto) 12.4 H (2.0-8.3) X10*3/uL ESR (0-15) MM/HR PT 14.4 H (10.8-13.0) SEC INR 1.2 H (0.9-1.1) Sodium 134 L (135-145) mmol/L Anion Gap 11 L (12-20) BUN 33 H (9-16) mg/dL Creatinine 1.67 H (0.5-1.4) mg/dL POC Glucose (60-115) mg/dL Random Glucose 217 H (60-115) mg/dL Calcium 8.2 L (8.4-10.2) mg/dL 12/24/20 Range/Units 07:19 WBC (4.8-10.8) X10*3/uL RBC (4.60-5.80) X10*6/uL Hgb (14.0-18.0) g/dl Hct (42-52) % MCH (27.0-33.0) pg Immature Gran % (Auto) (0.0-0.4) % Neut % (Auto) (45-73) % Lymph % (Auto) (20-40) % Lymph # (Auto) (1.2-4.9) X10*3/uL [place] # (Auto) (0.1-1.2) X10*3/uL Abs Immat Gran (auto) (0.00-0.03) X10*3/uL Absolute Neuts (auto) (2.0-8.3) X10*3/uL ESR (0-15) MM/HR PT (10.8-13.0) SEC INR (0.9-1.1) Sodium (135-145) mmol/L Anion Gap (12-20) BUN (9-16) mg/dL Creatinine (0.5-1.4) mg/dL POC Glucose 193 H (60-115) mg/dL Random Glucose (60-115) mg/dL Calcium (8.4-10.2) mg/dL Short CBC 12/23/20 12/24/20 Range/Units 21:42 05:54 WBC 16.5 H 14.9 H (4.8-10.8) X10*3/uL Hgb 8.8 L 8.5 L (14.0-18.0) g/dl Hct 27.5 L 26.2 L (42-52) % Plt Count 364 D 347 (160-400) X10*3/uL BMP 12/23/20 12/24/20 21:42 05:54 Sodium 134 L 134 L Potassium 3.9 3.9 Chloride 101 102 Carbon Dioxide 23 25 BUN 40 H 33 H Creatinine 1.94 H 1.67 H Calcium 8.6 8.2 L Liver Function 12/23/20 Range/Units 21:42 Total Bilirubin 0.4 (0.0-1.0) mg/dL Direct Bilirubin 0.2 (0.0-0.5) mg/dL AST 16 (5-37) U/L ALT 19 (0-40) U/L Alkaline Phosphatase 67 (39-117) U/L Albumin 3.5 (3.5-5.0) g/dL All other labs normal. Assessment and Plan (1) Diabetic foot ulcer: Status: Acute 55-year-old male with diabetes mellitus, poorly controlled, with a new onset ulceration and probable osteomyelitis involving the 5th toe right foot. Foot x-rays are suggestive of osteomyelitis. A right foot MRI is pending. I suspect patient will require amputation of this 5th toe but will wait the above testing. Patient may benefit from noninvasive vascular studies as well.
[2020-12-24 08:34] LABS: C Reactive Protein 13.66 mg/dL (< or = 0.50)
--- NOTE | 2020-12-24 08:56 | P.CDIC_ITS ---
CDI Concurrent Query Service Date: 12/24/20 Documentation Clarification: Please clarify if you are treating a proba ble/suspected/likely or confirmed: Sepsis, present on admission No Sepsis-present Provider Response: Other Other Diagnosis: no sepsis PLEASE DO NOT DELETE/MODIFY EXISTING CONTENT Additional information is needed in order to code to the highest accuracy and appropriate Severity of Illness (SOI). Please clarify the information noted below in your progress notes and discharge summary. Risk Factors/Clinical Indicators/Treatments 55 year old male admitted with Acute Diabetic Ulcer right 5th toe. Per surgical consult, probable Osteomyelitis 5th toe right foot. ID consult pending. WBC 16.5 T 99.6, P 93, R 16, BP 185/95, SAT 97% LA .7 Blood culture pending Per MD progress note, no MRI as patient has a pacemaker CDS: Sally Jones RN Contact Number: [phone] Please Review the information above and exercise your independent professional judgment in responding to the query. If you concur, pleas document in the PROGRESS NOTES and DISCHARGE SUMMARY. If you do not agree with the query, pl ease document in the query above. THIS QUERY IS PART OF THE PERMANENT MEDICAL RECORD
[2020-12-24 08:58] LABS: Ferritin 327 ng/mL (20-250)
[2020-12-24 09:15] LABS: Folate 11.1 ng/mL (> or = 4.0); Vitamin B12 292 pg/mL (200-900)
[2020-12-24 11:38] LABS: Glucose, Whole Blood 187 mg/dL (60-115)
--- NOTE | 2020-12-24 14:32 | PC.NURSE ---
Tigertexed Dr. Perez concerning Quintin have a diet ordered, he told me to contact Dr. Tristan, I contacted Dr. De Guzman because he was the surgeon who saw the patient. Dr. De Guzman said the patient could eat, so I re tiger texed Dr. Perez and asked him for an ADA diet for the [patient. Had to tiger text again after receiving no response and patient keeps asking to eat. Awaiting response after second tiger text for diet order.
--- NOTE | 2020-12-24 15:32 | P.CNID_ITS ---
History of Present Illness Data of Consult Service Date: 12/24/20 Requesting physician: Amber Perez Primary Care Provider: Ronnell Glass MD [facility] Reason for consult: diabetic foot infection He presents to hospital with right fifth toe swelling and blackness for two weeks. He was trying to heal area by soaking at home He didnt have Podiatry visits lately. Review of Systems Review of Systems: Yes all other systems are reviewed and are negative PMFSH Past Medical History Medical History BPH (benign prostatic hyperplasia) CHF (congestive heart failure) Chronic right heart failure CKD (chronic kidney disease) Complete heart block Essential hypertension Heart block Hyperlipidemia Hypertension Normally functioning cardiac pacemaker present Pacemaker Proteinuria Type 2 diabetes mellitus Type 2 diabetes mellitus with other diabetic kidney complication Functional capacity: independent ambulation Family History Family History Mother CVA (cerebral vascular accident) Diabetes Family history: reviewed and not pertinent Surgical History Surgical History History of cardiac pacemaker (~04/15/20) Social History Social History Smoking Status: Never smoker Meds Allergies Allergy/AdvReac Type Severity Reaction Status Date / Time regadenoson [From Lexiscan] AdvReac Severe seizure Verified 12/23/20 14:51 type activity Active Medications: Current Medications Generic Name Dose Route Start Last Admin Trade Name Freq PRN Reason Stop Dose Admin Acetaminophen 650 mg 12/24/20 01:38 Acetaminophen 325 Mg Tablet PO Q6H PRN Pain, Mild (Pain Scale 1-3) Docusate Sodium 100 mg 12/24/20 01:38 Docusate Sodium 100 Mg Capsule PO DAILY PRN Constipation Piperacillin Sod/Tazobactam 50 mls @ 100 mls/hr 12/24/20 06:00 12/24/20 15:29 Sod 3.375 gm/ Sodium Chloride IV Infused Q6H JANET Infusion Vancomycin HCl 750 mg/ Sodium 265 mls @ 265 mls/hr 12/24/20 15:00 Chloride IV Q12H [facility] Insulin Human Lispro 0 unit 12/24/20 07:30 12/24/20 12:34 Insulin Lispro 100 Unit/Ml 3 Ml Vial SUBCUT Not Given QIDAS [facility] Protocol Morphine Sulfate 4 mg 12/24/20 01:38 Morphine Sulfate 4 Mg/Ml Cartridge IVPUSH Q4H PRN Pain, Severe (Pain Scale 7-10) Ondansetron HCl 4 mg 12/24/20 01:38 Ondansetron Hcl 4 Mg/2 Ml Vial IVPUSH Q8H PRN Nausea and Vomiting Pharmacy Consult 1 each 12/23/20 23:25 Consult Rx Perform Med Rec MISCELLANE ONCE PRN Consult order Pharmacy Consult 1 each 12/24/20 01:38 Consult Rx Vancomycin Dosing MISCELLANE DAILY PRN Consult order Sodium Chloride 3 ml 12/24/20 01:38 12/24/20 07:16 0.9 % Sodium Chloride Flush 3 Ml Syringe IVFLUSH 3 ml [facility] Administration Home Medications Medication Instructions Recorded Confirmed Last Taken Type isosorbide mononitrate 60 mg 60 mg PO DAILY 07/31/20 12/24/20 12/23/20 History tablet,extended release 24 hr tamsulosin 0.4 mg capsule 0.4 mg PO DAILY 07/31/20 12/24/20 12/23/20 History lancets 33 gauge #100 ea 08/29/20 09/02/20 12/23/20 History pen needle, diabetic 32 gauge x #50 ea 08/29/20 09/02/20 12/23/20 History alcohol swabs [BD Alcohol Swabs] 1 pad TOPICAL QID 12/24/20 12/24/20 12/23/20 History metformin 500 mg PO BIDWM 12/24/20 12/24/20 12/23/20 History Physical Exam Vital Signs: Vital Signs: Last Vital Signs Temp 99 F 12/24/20 15:04 Pulse 90 12/24/20 15:04 Resp 16 12/24/20 15:04 BP 125/64 12/24/20 15:04 Pulse Ox 99 12/24/20 15:04 Body Mass Index 34.0 Const: General: cooperative HENMT: Head: Yes normal to inspection Mouth: Normal oral and palatal mucosa present Resp: Effort & Inspection: normal respiratory effort Cardio: Rate: regular rate Rhythm: regular rhythm GI: Palpation (GI): Soft to palpation and nontender Skin: General skin exam: no rashes or lesions noted Extrem: Other: 5th toe blackened Results Labs CBC & Chem 7: 12/24/20 05:54 12/24/20 05:54 Labs: Short CBC 12/23/20 12/24/20 Range/Units 21:42 05:54 WBC 16.5 H 14.9 H (4.8-10.8) X10*3/uL Hgb 8.8 L 8.5 L (14.0-18.0) g/dl Hct 27.5 L 26.2 L (42-52) % Plt Count 364 D 347 (160-400) X10*3/uL BMP 12/23/20 12/24/20 21:42 05:54 Sodium 134 L 134 L Potassium 3.9 3.9 Chloride 101 102 Carbon Dioxide 23 25 BUN 40 H 33 H Creatinine 1.94 H 1.67 H Calcium 8.6 8.2 L Liver Function 12/23/20 Range/Units 21:42 Total Bilirubin 0.4 (0.0-1.0) mg/dL Direct Bilirubin 0.2 (0.0-0.5) mg/dL AST 16 (5-37) U/L ALT 19 (0-40) U/L Alkaline Phosphatase 67 (39-117) U/L Albumin 3.5 (3.5-5.0) g/dL Assessment and Plan (1) Diabetic foot ulcer: Problem details: He has necrotic fifth toe There is concern over gram negative,staph,strep Status: Acute Would continue Vancomycin and Zosyn He is getting amputation tomorrow apparently and wont be getting buttermaker continuous churn IV antibiotics ,po Augmentin for 7 day (2) Necrosis: Status: Acute
--- NOTE | 2020-12-24 15:37 | PM.EVENT ---
Event Note Date of Service: 12/24/20 Event Note: Patient seen examined with the morning team today. Seen examined again-denies any chest pain shortness of breath or abdominal pain or fever chills.. Patient being treated for diabetic foot ulcer Physical exam: Cvs: rrr, [id number] , no murmur res: clear to auscultation ,no rhonchii or wheezing abd: no rebound or guarding ,nt, bs present. ext:Right proximal 5th phalanx discoloration, black scab, painful Palpable pulses bilaterally neuro: axo3 , nonfocal. Assessment and plan coordinated H&p Note: 1. 5th toe dm foot ulcer: esr and crp elevated on vanco and zosyn day1. Id and surgery eval- may need amputation tomrrow.afterwards probable po augmentin
[2020-12-24] MEDS: vancomycin HCL 750 MG in 0.9 % Sodium Chloride 250 ML 265 MG IV (15:44)
[2020-12-24 16:15] LABS: Glucose, Whole Blood 140 mg/dL (60-115)
[2020-12-24 17:57] LABS: OBS Int Ctl Valid YES; OBS1 NEGATIVE (NEGATIVE)
[2020-12-24] MEDS: Acetaminophen 325 MG TABLET 650 MG PO (19:28)
[2020-12-24 20:24] LABS: Glucose, Whole Blood 208 mg/dL (60-115)
[2020-12-24] MEDS: Insulin Lispro 100 UNIT/ML 3 ML VIAL SUBCUT (21:30)
[2020-12-25] VITALS (7 sets, daily range): BP systolic 142–171; BP diastolic 76–91; PULSE 87–103; RESP 16–20; TEMP 36.9–38.2; O2SAT 94–99; BMI 34.0
[2020-12-25] MEDS: vancomycin HCL 750 MG in 0.9 % Sodium Chloride 250 ML 265 MG IV ×2 (03:03→16:07)
[2020-12-25] MEDS: Piperacillin Sodium/Tazobactam 3.375 GM in 0.9 % Sodium Chloride 50 ML IV ×3 (06:17→23:27)
[2020-12-25 07:32] LABS: Glucose, Whole Blood 158 mg/dL (60-115)
--- NOTE | 2020-12-25 08:33 | P.PNGS_ITS ---
Subjective Subjective Date of Service: 12/25/20 Interval history: No new complaints, denies toe pain Physical Exam Vital Signs: Vital Signs: Last Vital Signs Temp 99.5 F 12/25/20 08:00 Pulse 90 12/25/20 08:00 Resp 19 12/25/20 08:00 BP 161/87 H 12/25/20 08:00 Pulse Ox 95 12/25/20 08:00 Body Mass Index 34.0 Const: General: cooperative, healthy appearing, comfortable, no acute distress, well developed, alert and awake Resp: Effort & Inspection: normal respiratory effort Cardio: Jugular venous distension: no JVD Skin: General skin exam: no rashes or lesions noted Extrem: Other: Right 5th toe with necrotic changes and foul-smelling discharge. No erythema noted in forefoot. Progress Note: A&P Assessment and plan (1) Diabetic foot ulcer: Status: Acute Assessment and Plan: Patient with a necrotic 5th toe right foot which is unlikely to heal with antibiotics. I recommended amputation of the right 5th toe and after discussion of the procedure, risks, and alternatives, he consents to the procedure. He will be added onto the operative schedule for later today. Fall Risk Details Current Medications: Current Medications Generic Name Dose Route Start Last Admin Trade Name Freq PRN Reason Stop Dose Admin Acetaminophen 650 mg 12/24/20 01:38 12/24/20 19:28 Acetaminophen 325 Mg Tablet PO 650 mg Q6H PRN Administration Pain, Mild (Pain Scale 1-3) Docusate Sodium 100 mg 12/24/20 01:38 Docusate Sodium 100 Mg Capsule PO DAILY PRN Constipation Piperacillin Sod/Tazobactam 50 mls @ 100 mls/hr 12/24/20 06:00 12/25/20 07:14 Sod 3.375 gm/ Sodium Chloride IV Infused Q6H JANET Infusion Vancomycin HCl 750 mg/ Sodium 265 mls @ 265 mls/hr 12/24/20 15:00 12/25/20 04:13 Chloride IV Infused Q12H JANET Infusion Insulin Human Lispro 0 unit 12/24/20 07:30 12/25/20 08:15 Insulin Lispro 100 Unit/Ml 3 Ml Vial SUBCUT Not Given QIDACHS [facility] Protocol Morphine Sulfate 4 mg 12/24/20 01:38 Morphine Sulfate 4 Mg/Ml Cartridge IVPUSH Q4H PRN Pain, Severe (Pain Scale 7-10) Ondansetron HCl 4 mg 12/24/20 01:38 Ondansetron Hcl 4 Mg/2 Ml Vial IVPUSH Q8H PRN Nausea and Vomiting Pharmacy Consult 1 each 12/23/20 23:25 Consult Rx Perform Med Rec MISCELLANE ONCE PRN Consult order Pharmacy Consult 1 each 12/24/20 01:38 Consult Rx Vancomycin Dosing MISCELLANE DAILY PRN Consult order Sodium Chloride 3 ml 12/24/20 01:38 12/24/20 21:31 0.9 % Sodium Chloride Flush 3 Ml Syringe IVFLUSH 3 ml QSHIFT JANET Administration Time Spent With Patient Time: Total time spent is greater than 50% in coordination of care (as documented) at patient's floor/unit and/or counseling patient: Time with patient: 15 - 24 minutes
[2020-12-25] MEDS: 0.9 % Sodium Chloride Flush 3 ML SYRINGE IVFLUSH ×3 (09:55→23:27)
--- NOTE | 2020-12-25 10:58 | P.CONAN_ITS ---
[facility] Active Problems Active Problems: All Active Problems (Updated 12/25/20 @ 08:35 by Dhaval mandujano MD) Diabetic foot ulcer (Acute) Necrosis (Acute) Complete heart block (Acute) YANCI (obstructive sleep apnea) (Acute) Type 2 diabetes mellitus with other diabetic kidney complication (Acute) Proteinuria (Acute) Hyperlipidemia (Acute) Essential hypertension (Acute) Normally functioning cardiac pacemaker present (Acute) Chronic right heart failure (Acute) Past Medical History Medical History BPH (benign prostatic hyperplasia) CHF (congestive heart failure) Chronic right heart failure CKD (chronic kidney disease) Complete heart block Essential hypertension Heart block Hyperlipidemia Hypertension Normally functioning cardiac pacemaker present Pacemaker Proteinuria Type 2 diabetes mellitus Type 2 diabetes mellitus with other diabetic kidney complication Functional capacity: independent ambulation Family History Family History Mother CVA (cerebral vascular accident) Diabetes Surgical History Surgical History History of cardiac pacemaker (~04/15/20) Social History Social History Smoking Status: Never smoker Meds Allergies Allergy/AdvReac Type Severity Reaction Status Date / Time regadenoson [From QingKean] AdvReac Severe seizure Verified 12/23/20 14:51 type activity Active Medications: Current Medications Generic Name Dose Route Start Last Admin Trade Name Freq PRN Reason Stop Dose Admin Acetaminophen 650 mg 12/24/20 01:38 12/24/20 19:28 Acetaminophen 325 Mg Tablet PO 650 mg Q6H PRN Administration Pain, Mild (Pain Scale 1-3) Docusate Sodium 100 mg 12/24/20 01:38 Docusate Sodium 100 Mg Capsule PO DAILY PRN Constipation Piperacillin Sod/Tazobactam 50 mls @ 100 mls/hr 12/24/20 06:00 12/25/20 07:14 Sod 3.375 gm/ Sodium Chloride IV Infused Q6H JANET Infusion Vancomycin HCl 750 mg/ Sodium 265 mls @ 265 mls/hr 12/24/20 15:00 12/25/20 04:13 Chloride IV Infused Q12H JANET Infusion Insulin Human Lispro 0 unit 12/24/20 07:30 12/25/20 08:15 Insulin Lispro 100 Unit/Ml 3 Ml Vial SUBCUT [facility] Protocol Morphine Sulfate 4 mg 12/24/20 01:38 Morphine Sulfate 4 Mg/Ml Cartridge IVPUSH Q4H PRN Pain, Severe (Pain Scale 7-10) Ondansetron HCl 4 mg 12/24/20 01:38 Ondansetron Hcl 4 Mg/2 Ml Vial IVPUSH Q8H PRN Nausea and Vomiting Pharmacy Consult 1 each 12/23/20 23:25 Consult Rx Perform Med Rec MISCELLANE ONCE PRN Consult order Pharmacy Consult 1 each 12/24/20 01:38 Consult Rx Vancomycin Dosing MISCELLANE DAILY PRN Consult order Sodium Chloride 3 ml 12/24/20 01:38 12/25/20 09:55 0.9 % Sodium Chloride Flush 3 Ml Syringe IVFLUSH 3 ml [facility] Administration Home Medications Medication Instructions Recorded Confirmed Last Taken Type isosorbide mononitrate 60 mg 60 mg PO DAILY 07/31/20 12/24/20 12/23/20 History tablet,extended release 24 hr tamsulosin 0.4 mg capsule 0.4 mg PO DAILY 07/31/20 12/24/20 12/23/20 History lancets 33 gauge #100 ea 08/29/20 09/02/20 12/23/20 History pen needle, diabetic 32 gauge x #50 ea 08/29/20 09/02/20 12/23/20 History alcohol swabs [BD Alcohol Swabs] 1 pad TOPICAL QID 12/24/20 12/24/20 12/23/20 History metformin 500 mg PO BIDWM 12/24/20 12/24/20 12/23/20 History Exam Exam Date and Time: December 25, 2020 105 Height,Weight and Vital Signs: Height 5 ft 9 in Weight 104.326 kg Last Vital Signs Temp 99.5 F 12/25/20 08:00 Pulse 90 12/25/20 08:00 Resp 19 12/25/20 08:00 BP 161/87 H 12/25/20 08:00 Pulse Ox 95 12/25/20 08:00 Pertinent Lab Results Pertinent Lab Results: Laboratory Tests 12/23/20 12/23/20 12/23/20 21:42 21:42 21:42 WBC 16.5 H RBC 3.43 L Hgb 8.8 L Hct 27.5 L MCV 80.2 MCH 25.7 L MCHC 32.0 RDW 12.8 Plt Count 364 D MPV 9.9 Immature Gran % (Auto) 0.7 H Neut % (Auto) 82.8 H Lymph % (Auto) 8.1 L [place] % (Auto) 7.7 Eos % (Auto) 0.5 Baso % (Auto) 0.2 Lymph # (Auto) 1.3 [place] # (Auto) 1.3 H Eos # (Auto) 0.1 Baso # (Auto) 0.0 Abs Immat Gran (auto) 0.11 H Absolute Neuts (auto) 13.7 H Absolute Nucleated RBC 0.000 Nucleated RBC % (auto) 0.0 ESR 102 H PT INR APTT Sodium 134 L Potassium 3.9 Chloride 101 Carbon Dioxide 23 Anion Gap 14 BUN 40 H Creatinine 1.94 H Estim Creat Clear Calc 51.2 Estimated GFR 36 POC Glucose Random Glucose 203 H Lactic Acid Calcium 8.6 Ferritin Total Bilirubin 0.4 Direct Bilirubin 0.2 AST 16 ALT 19 Alkaline Phosphatase 67 C-Reactive Protein Total Protein 7.5 Albumin 3.5 Vitamin B12 Folate Stool Occult Blood COVID-19 (LANDY) COVID-19 Clin Com 12/23/20 12/23/20 12/24/20 21:43 21:43 05:54 WBC 14.9 H RBC 3.27 L Hgb 8.5 L Hct 26.2 L MCV 80.1 MCH 26.0 L MCHC 32.4 RDW 12.7 Plt Count 347 MPV 9.9 Immature Gran % (Auto) 0.6 H Neut % (Auto) 83.3 H Lymph % (Auto) 7.1 L [place] % (Auto) 8.2 Eos % (Auto) 0.5 Baso % (Auto) 0.3 Lymph # (Auto) 1.1 L [place] # (Auto) 1.2 Eos # (Auto) 0.1 Baso # (Auto) 0.1 Abs Immat Gran (auto) 0.09 H Absolute Neuts (auto) 12.4 H Absolute Nucleated RBC 0.000 Nucleated RBC % (auto) 0.0 ESR PT 14.4 H INR 1.2 H APTT 31.5 Sodium Potassium Chloride Carbon Dioxide Anion Gap BUN Creatinine Estim Creat Clear Calc Estimated GFR POC Glucose Random Glucose Lactic Acid 0.7 Calcium Ferritin Total Bilirubin Direct Bilirubin AST ALT Alkaline Phosphatase C-Reactive Protein Total Protein Albumin Vitamin B12 Folate Stool Occult Blood COVID-19 (LANDY) COVID-19 [place] [employer] 12/24/20 12/24/20 12/24/20 05:54 05:54 07:19 WBC RBC Hgb Hct MCV MCH MCHC RDW Plt Count MPV Immature Gran % (Auto) Neut % (Auto) Lymph % (Auto) [place] % (Auto) Eos % (Auto) Baso % (Auto) Lymph # (Auto) [place] # (Auto) Eos # (Auto) Baso # (Auto) Abs Immat Gran (auto) Absolute Neuts (auto) Absolute Nucleated RBC Nucleated RBC % (auto) ESR PT INR APTT Sodium 134 L Potassium 3.9 Chloride 102 Carbon Dioxide 25 Anion Gap 11 L BUN 33 H Creatinine 1.67 H Estim Creat Clear Calc 59.4 Estimated GFR 43 POC Glucose 193 H Random Glucose 217 H Lactic Acid Calcium 8.2 L Ferritin Total Bilirubin Direct Bilirubin AST ALT Alkaline Phosphatase C-Reactive Protein Total Protein Albumin Vitamin B12 Folate Stool Occult Blood COVID-19 (LANDY) Negative COVID-19 [place] [employer] See Note 12/24/20 12/24/20 12/24/20 08:00 08:00 08:00 WBC RBC Hgb Hct MCV MCH MCHC RDW Plt Count MPV Immature Gran % (Auto) Neut % (Auto) Lymph % (Auto) [place] % (Auto) Eos % (Auto) Baso % (Auto) Lymph # (Auto) [place] # (Auto) Eos # (Auto) Baso # (Auto) Abs Immat Gran (auto) Absolute Neuts (auto) Absolute Nucleated RBC Nucleated RBC % (auto) ESR PT INR APTT Sodium Potassium Chloride Carbon Dioxide Anion Gap BUN Creatinine Estim Creat Clear Calc Estimated GFR POC Glucose Random Glucose Lactic Acid Calcium Ferritin 327 H Total Bilirubin Direct Bilirubin AST ALT Alkaline Phosphatase C-Reactive Protein 13.66 H Total Protein Albumin Vitamin B12 292 Folate 11.1 Stool Occult Blood COVID-19 (LADNY) COVID-19 [place] [employer] 12/24/20 12/24/20 12/24/20 11:30 16:08 17:35 WBC RBC Hgb Hct MCV MCH MCHC RDW Plt Count MPV Immature Gran % (Auto) Neut % (Auto) Lymph % (Auto) [place] % (Auto) Eos % (Auto) Baso % (Auto) Lymph # (Auto) [place] # (Auto) Eos # (Auto) Baso # (Auto) Abs Immat Gran (auto) Absolute Neuts (auto) Absolute Nucleated RBC Nucleated RBC % (auto) ESR PT INR APTT Sodium Potassium Chloride Carbon Dioxide Anion Gap BUN Creatinine Estim Creat Clear Calc Estimated GFR POC Glucose 187 H 140 H Random Glucose Lactic Acid Calcium Ferritin Total Bilirubin Direct Bilirubin AST ALT Alkaline Phosphatase C-Reactive Protein Total Protein Albumin Vitamin B12 Folate Stool Occult Blood NEGATIVE COVID-19 (LANDY) COVID-19 Clin Com 12/24/20 12/25/20 20:21 07:28 WBC RBC Hgb Hct MCV MCH MCHC RDW Plt Count MPV Immature Gran % (Auto) Neut % (Auto) Lymph % (Auto) [place] % (Auto) Eos % (Auto) Baso % (Auto) Lymph # (Auto) [place] # (Auto) Eos # (Auto) Baso # (Auto) Abs Immat Gran (auto) Absolute Neuts (auto) Absolute Nucleated RBC Nucleated RBC % (auto) ESR PT INR APTT Sodium Potassium Chloride Carbon Dioxide Anion Gap BUN Creatinine Estim Creat Clear Calc Estimated GFR POC Glucose 208 H 158 H Random Glucose Lactic Acid Calcium Ferritin Total Bilirubin Direct Bilirubin AST ALT Alkaline Phosphatase C-Reactive Protein Total Protein Albumin Vitamin B12 Folate Stool Occult Blood COVID-19 (LANDY) COVID-19 Clin Com Airway Mallampati Class: III TM Dist: >3cm Neck ROM: Full Loose/Missing/Broken Teeth: Yes (Very loose left lateral incisor) Heart: RRR Lungs: CTA Assessment and Plan Assessment Anesthesia Assessment: Anesthesia Plan Discussed and Chart Reviewed Final Anesthetic Review NPO: Yes ASA Class: III Final Preanesthetic Review: Meds/Allgs Chart Reviewed, Consent Obtained/Reviewed and Anes Risks/Benef Reviewed Patient Risk: Intermediate Procedure Risk: Low Anesthetic Plan Anesthetic Plan: MAC: Disposition: Standard PACU
[2020-12-25 11:14] LABS: Glucose, Whole Blood 149 mg/dL (60-115)
--- NOTE | 2020-12-25 11:42 | MHC.SHP ---
Pre-Procedural Eval Section A The patient is an INPATIENT: Yes Section B Chief Complaint: DIABETIC WOUND INFECTION Allergies: Allergies Allergy/AdvReac Type Severity Reaction Status Date / Time regadenoson [From Lexiscan] AdvReac Severe seizure Verified 12/23/20 14:51 type activity Plan I have reviewed the history and physical and performed a pertinent physical examination on my patient. No changes have occurred unless specified.
--- NOTE | 2020-12-25 12:00 | MHC.CM.PN ---
Addendum entered by Emily Hassan 12/25/20 14:00: 12/25/20 S/P DIABETIC NECROTIC RIGHT 5TH TOE AMPUTATION OSTEOMYELITIS INVOLVING PROXIMAL PHALANX DISTAL METARSAL BONE , CONTINUE TO MONITOR FOR DISCHARGE NEEDS , AND SURGICAL INPUT -CONTINUES IV/ORAL ANALGEICS Original Note: NURSE TEAM SPORTS SALES ASSOCIATE NOTE ELECTRONIC MEDICAL RECORD REVIEWED ALONG WITH CASE DISCUSSED WITH STAFF NURSE , MET WITH PATIENT HE REPORTED HE LIVES ALONE , HE IS ACTIVE INDEPENDENT IN ALL ADLS AND MOBILITY WITH OUT THE USE OF ANY DEVICES. 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
--- NOTE | 2020-12-25 12:49 | W.PM.OPN ---
Operative Note Operative Note Date of Service: 12/25/20 Narrative: Preoperative diagnosis: Diabetic necrotic right 5th toe Postoperative diagnosis: Same Procedure: Amputation of right 5th toe Surgeon: Dhaval De Guzman MD Carpenter [employer]radle [employer] Dolly: Abby Medellin PA-C Anesthesia: Mac Indications for procedure: 55-year-old male patient with history of diabetes presenting with bleeding from his right great toe found to have necrosis and probable osteomyelitis involving the proximal phalanx. Operative findings: Necrotic right 5th toe with obvious osteomyelitis involving the proximal phalanx and distal metatarsal head Specimen: Right 5th toe Estimated blood loss: 10 mL Complications: None Procedure details: Patient was brought to the OR and placed in a supine position. After administering anesthesia the patient's right foot was prepped with Betadine and draped in a sterile fashion. A surgical time-out was called the consent confirmed. Patient received preoperative antibiotics. A digital block was performed using lidocaine 1% plain along with 0.5% Sensorcaine. This was done at the 5th toe. An elliptical incision was then made extending around the base of the 5th toe and extending up to the proximal metatarsal head. This carried out through subcutaneous tissue. Electrocautery was then used to dissect down to the phalanx and distal metatarsal. There was an obvious osteomyelitis at the proximal phalanx with a fracture of the toe at that point. The toe was removed and sent to pathology for further examination. The proximal segment of the proximal phalanx as well as the distal metatarsal head was also resected and sent to pathology as well. Hemostasis was assured using electrocautery. The wounds were then thoroughly irrigated with saline solution. Subcutaneous tissue and dermis were then reapproximated using interrupted 3-0 Polysorb sutures. Skin was then closed using interrupted nylon sutures. Calcium silver alginate was then applied to the wound followed by fluffed gauze, Kerlix, and a 4 in Hamzah bandage. The patient tolerated the procedure well. He was transferred to PACU in stable condition. Sponge, instrument, needle counts reported as correct.
--- NOTE | 2020-12-25 13:54 | HO.PM.IMPN ---
Subjective Subjective Date of Service: 12/26/20 Physical Exam Vital Signs: Vital Signs: Last Vital Signs Temp 99.2 F 12/25/20 12:47 Pulse 89 12/25/20 13:03 Resp 18 12/25/20 13:03 BP 149/85 H 12/25/20 13:03 Pulse Ox 98 12/25/20 13:03 Body Mass Index 34.0 Physical exam: Constitutional: Not in acute distress. Cvs: rrr, [id number] , no murmur res: clear to auscultation ,no rhonchii or wheezing abd: no rebound or guarding ,nt, bs present. ext:Right proximal 5th phalanx discoloration, black scab, painful Palpable pulses bilaterally neuro: axo3 , nonfocal. Objective Data Current Medications Generic Name Dose Route Start Last Admin Trade Name Freq PRN Reason Stop Dose Admin Acetaminophen 650 mg 12/24/20 01:38 12/24/20 19:28 Acetaminophen 325 Mg Tablet PO 650 mg Q6H PRN Administration Pain, Mild (Pain Scale 1-3) Docusate Sodium 100 mg 12/24/20 01:38 Docusate Sodium 100 Mg Capsule PO DAILY PRN Constipation Piperacillin Sod/Tazobactam 50 mls @ 100 mls/hr 12/24/20 06:00 12/25/20 07:14 Sod 3.375 gm/ Sodium Chloride IV Infused Q6H JANET Infusion Vancomycin HCl 750 mg/ Sodium 265 mls @ 265 mls/hr 12/24/20 15:00 12/25/20 04:13 Chloride IV Infused Q12H JANET Infusion Insulin Human Lispro 0 unit 12/24/20 07:30 12/25/20 08:15 Insulin Lispro 100 Unit/Ml 3 Ml Vial SUBCUT Not Given QIDACHS [facility] Protocol Morphine Sulfate 4 mg 12/24/20 01:38 Morphine Sulfate 4 Mg/Ml Cartridge IVPUSH Q4H PRN Pain, Severe (Pain Scale 7-10) Morphine Sulfate 3 mg 12/25/20 13:52 Morphine Sulfate 4 Mg/Ml Cartridge IVPUSH Q3H PRN Pain, Severe (Pain Scale 7-10) Ondansetron HCl 4 mg 12/24/20 01:38 Ondansetron Hcl 4 Mg/2 Ml Vial IVPUSH Q8H PRN Nausea and Vomiting Oxycodone HCl 5 mg 12/25/20 13:52 Oxycodone Hcl Immed Release 5 Mg Tablet PO Q4H PRN Pain, Moderate (Pain Scale 4-6 Pharmacy Consult 1 each 12/23/20 23:25 Consult Rx Perform Med Rec MISCELLANE ONCE PRN Consult order Pharmacy Consult 1 each 12/24/20 01:38 Consult Rx Vancomycin Dosing MISCELLANE DAILY PRN Consult order Sodium Chloride 3 ml 12/24/20 01:38 12/25/20 09:55 0.9 % Sodium Chloride Flush 3 Ml Syringe IVFLUSH 3 ml QSHIFT JANET Administration Labs CBC & Chem 7: 12/26/20 06:03 12/26/20 06:03 Microbiology Microbiology Results: Microbiology 12/23/20 21:43 Blood - Venous Blood Culture - Preliminary No growth after 24 hours. 12/23/20 21:42 Blood - Venous Blood Culture - Preliminary No growth after 24 hours. Assessment and Plan (1) Diabetic foot ulcer: Status: Acute (2) Anemia: Status: Acute Assessment and Plan: 55-year-old male with past medical history of diabetes who presents to the hospital with right 5th toe infection 1. diabetic foot ulcer- right 5th toe, discoloration, almost appears necrotic, elevated ESR, will add CRP on IV antibiotics with Zosyn and vancomycin given his history of diabetes Id sin noted -surgery today , than switch to po antibiotics in am 2. diabetes mellitus: fs 140-200. - diabetic diet - low dose sliding scale insulin - hold metformin 3. history of CHF - not in exacerbation - continue home medications of Bumex, Imdur, labetalol, spironolactone, 4. hypertension - stable - continue hydralazine, amlodipine, spironolactone 5. heart block - status post pacemaker 6. anemia : normocytic anemia h/h between 8.5 -9.5 range iron workup
[2020-12-25 15:13] LABS: Vancomycin Trough 11.8 mcg/mL (10.0-20.0)
[2020-12-25 16:16] LABS: Glucose, Whole Blood 195 mg/dL (60-115)
[2020-12-25] MEDS: Insulin Lispro 100 UNIT/ML 3 ML VIAL SUBCUT ×2 (16:27→21:52)
[2020-12-25 20:32] LABS: Glucose, Whole Blood 157 mg/dL (60-115)
[2020-12-25] MEDS: Labetalol HCL 100 MG TABLET PO (23:26)
[2020-12-25] MEDS: Acetaminophen 325 MG TABLET 650 MG PO (23:26)
[2020-12-25] MEDS: hydrALAZINE HCl 50 MG TABLET 100 MG PO (23:26)
[2020-12-26 01:06] VITALS: TEMP 36.7
[2020-12-26] MEDS: vancomycin HCL 750 MG in 0.9 % Sodium Chloride 250 ML 265 MG IV (02:52)
[2020-12-26 03:19] VITALS: BP 133/79; PULSE 103; RESP 20; TEMP 37; O2SAT 97
[2020-12-26] MEDS: Piperacillin Sodium/Tazobactam 3.375 GM in 0.9 % Sodium Chloride 50 ML IV ×2 (05:29→12:54)
[2020-12-26 06:36] LABS: Hematocrit 27.9 % (42-52); Hemoglobin 8.7 g/dl (14.0-18.0)
[2020-12-26 07:08] VITALS: BP 154/87; PULSE 107; RESP 16; TEMP 36.9; O2SAT 95
[2020-12-26 07:08] LABS: Anion Gap 12 (12-20); Blood Urea Nitrogen 24 mg/dL (9-16); Carbon Dioxide 23 mmol/L (22-29); Chloride 108 mmol/L (96-108); Creatinine Clr Calc Pharmacy 60.2; Estimated Glomerular Filt Rate 44; Glucose Random 119 mg/dL (60-115); Sodium 139 mmol/L (135-145)
[2020-12-26 07:22] VITALS: BP 144/86; PULSE 103; RESP 18; TEMP 35.9; O2SAT 96
--- NOTE | 2020-12-26 07:30 | P.PNGS_ITS ---
Subjective Subjective Date of Service: 12/26/20 Interval history: POD #1 status post amputation of right little toe. He tolerated the procedure well and denies any significant pain this morning. He did report a fever during the night. Physical Exam Vital Signs: Vital Signs: Last Vital Signs Temp 96.7 F L 12/26/20 07:22 Pulse 103 H 12/26/20 07:22 Resp 18 12/26/20 07:22 BP 144/86 H 12/26/20 07:22 Pulse Ox 96 12/26/20 07:22 Body Mass Index 34.0 Const: General: cooperative, healthy appearing, comfortable, no acute distress, well developed, alert and awake Resp: Effort & Inspection: normal respiratory effort Extrem: Other: Dressings changed to the right foot. Wounds are clean and intact without erythema. Minimal bloody drainage noted. Wounds were redressed with Aquacel Ag, fluff gauze between toes, Kerlix and Hamzah bandage. Patient tolerated the dressing change well. Ankle/foot/toe images: 1. Amputated right 5th toe Progress Note: A&P Assessment and plan (1) Diabetic foot ulcer: Status: Acute (2) Amputation of toe of right foot: Status: Acute Assessment and Plan: Pod 1 status post amputation right 5th toe. Patient is stable with an apparent fever during the night. Wounds are clean and intact without evidence of infection. Bone culture sent of obvious osteomyelitis. Patient is discharged he should follow up in my office in approximately 1 week for wound check. Oral antibiotics as recommended by Dr. Rodriguez. VNA for dressing changes q.o.d. with silver calcium alginate, fluff gauze, Kerlix, and Hamzah bandage loosely applied. Surgical shoe should be worn if ambulating. I recommended minimal ambulation for the next several weeks. Fall Risk Details Current Medications: Current Medications Generic Name Dose Route Start Last Admin Trade Name Freq PRN Reason Stop Dose Admin Acetaminophen 650 mg 12/24/20 01:38 12/25/20 23:26 Acetaminophen 325 Mg Tablet PO 650 mg Q6H PRN Administration Pain, Mild (Pain Scale 1-3) Amlodipine Besylate 10 mg 12/26/20 09:00 Amlodipine Besylate 10 Mg Tablet PO DAILY JANET Protocol Bumetanide 2 mg 12/26/20 09:00 Bumetanide 1 Mg Tablet PO BID [facility] Protocol Docusate Sodium 100 mg 12/24/20 01:38 Docusate Sodium 100 Mg Capsule PO DAILY PRN Constipation Hydralazine HCl 100 mg 12/25/20 22:15 12/25/20 23:26 Hydralazine Hcl 50 Mg Tablet PO 100 mg TID [facility] Administration Protocol Piperacillin Sod/Tazobactam 50 mls @ 100 mls/hr 12/24/20 06:00 12/26/20 06:20 Sod 3.375 gm/ Sodium Chloride IV Infused Q6H [facility] Infusion Vancomycin HCl 750 mg/ Sodium 265 mls @ 265 mls/hr 12/24/20 15:00 12/26/20 04:03 Chloride IV Infused Q12H [facility] Infusion Insulin Human Lispro 0 unit 12/24/20 07:30 12/26/20 07:22 Insulin Lispro 100 Unit/Ml 3 Ml Vial SUBCUT Not Given QIDACHS [facility] Protocol Isosorbide Mononitrate 60 mg 12/26/20 09:00 Isosorbide Mononitrate 60 Mg Tab.Er.24h PO DAILY [facility] Protocol Labetalol HCl 100 mg 12/25/20 22:15 12/25/20 23:26 Labetalol Hcl 100 Mg Tablet PO 100 mg BID [facility] Administration Protocol Morphine Sulfate 4 mg 12/24/20 01:38 Morphine Sulfate 4 Mg/Ml Cartridge IVPUSH Q4H PRN Pain, Severe (Pain Scale 7-10) Morphine Sulfate 3 mg 12/25/20 13:52 Morphine Sulfate 4 Mg/Ml Cartridge IVPUSH Q3H PRN Pain, Severe (Pain Scale 7-10) Ondansetron HCl 4 mg 12/24/20 01:38 Ondansetron Hcl 4 Mg/2 Ml Vial IVPUSH Q8H PRN Nausea and Vomiting Oxycodone HCl 5 mg 12/25/20 13:52 Oxycodone Hcl Immed Release 5 Mg Tablet PO Q4H PRN Pain, Moderate (Pain Scale 4-6 Pharmacy Consult 1 each 12/23/20 23:25 Consult Rx Perform Med Rec MISCELLANE ONCE PRN Consult order Pharmacy Consult 1 each 12/24/20 01:38 Consult Rx Vancomycin Dosing MISCELLANE DAILY PRN Consult order Sodium Chloride 3 ml 12/24/20 01:38 12/25/20 23:27 0.9 % Sodium Chloride Flush 3 Ml Syringe IVFLUSH 3 ml QSHIFT [facility] Administration Spironolactone 50 mg 12/26/20 09:00 Spironolactone 25 Mg Tablet PO DAILY [facility] Protocol Tamsulosin HCl 0.4 mg 12/26/20 09:00 Tamsulosin Hcl 0.4 Mg Capsule PO DAILY [facility] Time Spent With Patient Time: Total time spent is greater than 50% in coordination of care (as documented) at patient's floor/unit and/or counseling patient: Time with patient: 25 - 35 minutes
[2020-12-26 07:36] LABS: Glucose, Whole Blood 127 mg/dL (60-115)
[2020-12-26] MEDS: 0.9 % Sodium Chloride Flush 3 ML SYRINGE IVFLUSH (09:30)
[2020-12-26] MEDS: Bumetanide 1 MG TABLET 2 MG PO (09:52)
[2020-12-26] MEDS: amLODIPine Besylate 10 MG TABLET PO (09:52)
[2020-12-26] MEDS: Spironolactone 25 MG TABLET 50 MG PO (09:52)
[2020-12-26 09:53] VITALS: BP 144/86; PULSE 103
[2020-12-26] MEDS: Isosorbide Mononitrate 60 MG TAB.ER.24H PO (09:53)
[2020-12-26] MEDS: hydrALAZINE HCl 50 MG TABLET 100 MG PO ×2 (09:53→15:55)
[2020-12-26] MEDS: Tamsulosin HCL 0.4 MG CAPSULE PO (09:53)
[2020-12-26] MEDS: Labetalol HCL 100 MG TABLET PO (09:53)
--- NOTE | 2020-12-26 10:20 | HO.POSTANES ---
Post Anesthesia Evaluation Post Anesthesia Evaluation Vital Signs: Vital Signs Temp Pulse Resp BP Pulse Ox 12/26/20 09:53 103 H 144/86 H 12/26/20 07:22 96.7 F L 103 H 18 144/86 H 96 12/26/20 07:08 98.4 F 107 H 16 154/87 H 95 12/26/20 03:19 98.6 F 103 H 20 133/79 97 12/26/20 01:06 98.1 F 12/25/20 23:20 100.7 F H 103 H 20 150/83 H 94 Anesthesia: Monitored Mental Status: Awake Pain Control: Satisfactory Nausea/Vomiting: None Hydration: Adequate Anesthesia-Related Issues: No Anes. Related Issues
[2020-12-26] MEDS: Insulin Lispro 100 UNIT/ML 3 ML VIAL SUBCUT (12:14)
[2020-12-26 12:18] LABS: Glucose, Whole Blood 172 mg/dL (60-115)
--- NOTE | 2020-12-26 13:52 | PM.DS ---
DS: Providers Provider Date of Service: 12/26/20 Date of admission: 12/23/20 23:37 Primary care physician: Ronnell Glass MD Consults: 12/24/20 01:38 Consult to Infectious Diseases Routine Consulting Provider: Carol Rodriguez Reason for consultation: osteo? cannot get mri due to pacemaker Has provider been notified: No 12/24/20 06:17 Consult to General Surgery Routine Consulting Provider: Dhaval De Guzman Reason for consultation: toe infection Has provider been notified: No DS: Diagnosis Discharge Diagnosis (1) Diabetic foot ulcer: Status: Acute (2) Anemia: Status: Acute DS: Medications Discharge Medications Home Medications: Home Medications Medication Instructions Recorded Confirmed isosorbide mononitrate 60 mg 60 mg PO DAILY 07/31/20 12/24/20 tablet,extended release 24 hr tamsulosin 0.4 mg capsule 0.4 mg PO DAILY 07/31/20 12/24/20 lancets 33 gauge #100 ea 08/29/20 09/02/20 pen needle, diabetic 32 gauge x #50 ea 08/29/20 09/02/20 alcohol swabs [BD Alcohol Swabs] 1 pad TOPICAL QID 12/24/20 12/24/20 metformin 500 mg PO BIDWM 12/24/20 12/24/20 Previous Rx's Medication Instructions Recorded amlodipine 10 mg tablet 10 mg PO DAILY 90 Days #90 tab 08/22/20 hydralazine 100 mg tablet 100 mg PO TID 30 Days #90 tab 08/28/20 labetalol 100 mg tablet 100 mg PO BID #180 tab 10/15/20 blood sugar diagnostic 1 strip MISCELLANEOUS TID 30 Days 10/26/20 #100 strip bumetanide 1 mg tablet 2 mg PO BID #60 tab 12/12/20 spironolactone 25 mg tablet 50 mg PO QAM #30 tab 12/17/20 DS: Summary Hospital Course Hospital Course: 55-year-old male with past medical history of CHF, CKD, diabetes, HTN, HLD, heart block status post pacemaker, BPH presents to the hospital with complaints of toe infection. Patient reports that he noticed his right small toe to be turning black as well as painful. Patient reports that he had a blister on the, had covered for the past 2 weeks but noticed that he was getting worse, more painful, and turning black with discoloration and drainage. He denies any fever or chills, he denies any chest pain, no shortness of breath, no abdominal pain nausea or vomiting, no diarrhea constipation, no urinary symptoms. No headache or change in vision. No numbness tingling or weakness. On arrival to the ED hemodynamically stable with no significant abnormal vitals. Labs are significant for WBC count of 16.5, hemoglobin of 8.8 with hematocrit of 27.5 (hemoglobin of 10.7 in 07/08), ESR of 102, sodium of 134, potassium of 3.9, BUN of 40, creatinine of 1.94 which is around his baseline, COVID-19 negative, Toe x-ray shows mild lucency involving the 5th proximal phalanx no pathological fracture seen. Osteomyelitis would be consideration. Hospital Course problem rosales section: 55-year-old male with past medical history of diabetes who presents to the hospital with right 5th toe infection 1. diabetic foot ulcer- right 5th toe, discoloration, almost appears necrotic, elevated ESR, will add CRP on IV antibiotics with Zosyn diabetic foot ulcer- right 5th toe, discoloration, almost appears necrotic: Initially started on IV Vanco and Zosyn.- Pod 1 status post amputation right 5th toe. Patient is stable with an apparent fever during the night. Wounds are clean and intact without evidence of infection. Bone culture sent of obvious osteomyelitis. Patient is discharged he should follow up in Dr De Guzman's office in approximately 1 week for wound check. Oral antibiotics as recommended by Dr. Rodriguez. VNA for dressing changes q.o.d. with silver calcium alginate, fluff gauze, Kerlix, and Hamzah bandage loosely applied. Surgical shoe should be worn if ambulating. I recommended minimal ambulation for the next several weeks. Above management discussed with the patient in detail length he understand and in agreement with the above plan, time spent 50 minutes and 50% time spent on counseling. Significant findings: As above. Procedures performed: None. Treatment and response: As above. Complications: None. Time Spent with Patient Time attestation: Total time spent providing and/or coordinating discharge services: Discharge coordination time: Greater than 30 minutes Physical Exam Vital Signs: Vital Signs: Last Vital Signs Temp 96.7 F L 12/26/20 07:22 Pulse 103 H 12/26/20 09:53 Resp 18 12/26/20 07:22 BP 144/86 H 12/26/20 09:53 Pulse Ox 96 12/26/20 07:22 Body Mass Index 34.0 DS: Data Data Completed and Pending Pending studies at discharge: Pending at discharge 12/25/20 12:23 Surgical [PTH] Routine Labs on day of discharge: Laboratory Results - last 24 hr 12/25/20 12/25/20 12/25/20 14:11 16:12 20:28 Hgb Hct Sodium Potassium Chloride Carbon Dioxide Anion Gap BUN Creatinine Estim Creat Clear Calc Estimated GFR POC Glucose 195 H 157 H Random Glucose Calcium Vancomycin Trough 11.8 12/26/20 12/26/20 12/26/20 06:03 06:03 07:09 Hgb 8.7 L Hct 27.9 L Sodium 139 Potassium 4.0 Chloride 108 Carbon Dioxide 23 Anion Gap 12 BUN 24 H Creatinine 1.65 H Estim Creat Clear Calc 60.2 Estimated GFR 44 POC Glucose 127 H Random Glucose 119 H D Calcium 8.0 L Vancomycin Trough 12/26/20 11:52 Hgb Hct Sodium Potassium Chloride Carbon Dioxide Anion Gap BUN Creatinine Estim Creat Clear Calc Estimated GFR POC Glucose 172 H Random Glucose Calcium Vancomycin Trough Preliminary micro results at discharge 12/25/20 Unknown Routine Culture - Preliminary Toe Right Fifth Culture in progress. Anaerobic Culture - Preliminary Culture in progress. 12/23/20 21:43 Blood Culture - Preliminary Blood - Venous No growth after 48 hours. 12/23/20 21:42 Blood Culture - Preliminary Blood - Venous No growth after 48 hours. Discharge Plan Discharge Patient Disposition: Home Health Service Referrals: [facility] [Outside] Ronnell Glass MD [Primary Care Provider] - Dhaval De Guzman MD [Physician] - (fu in 2 weeks) Discharge Medications: New amoxicillin-pot clavulanate [Augmentin] 875-125 mg tablet 1 tab PO BID Qty: 14 RF: 0 Continued amlodipine 10 mg tablet 10 mg PO DAILY 90 Days Qty: 90 RF: 1 hydralazine 100 mg tablet 100 mg PO TID 30 Days Qty: 90 RF: 3 labetalol 100 mg tablet 100 mg PO BID Qty: 180 RF: 2 blood sugar diagnostic [OneTouch Verio test strips] Strip 1 strip miscellaneous TID 30 Days Qty: 100 RF: 11 bumetanide 1 mg tablet 2 mg PO BID Qty: 60 RF: 2 spironolactone 25 mg tablet 50 mg PO QAM Qty: 30 RF: 2 alcohol swabs [BD Alcohol Swabs] Pads, Medicated 1 pad topical QID RF: 0 metformin 500 mg tablet 500 mg PO BIDWM RF: 0 (DME) lancets 33 gauge misc See Rx Instructions gauge .ROUTE .MEDSUPPLY Qty: 100 RF: 0 (DME) pen needle, diabetic 32 gauge x 5/32 needle See Rx Instructions ea subcut DAILY Qty: 50 RF: 0 tamsulosin 0.4 mg capsule 0.4 mg PO DAILY RF: 0 isosorbide mononitrate 60 mg tablet extended release 24 hr 60 mg PO DAILY RF: 0 Discharge Orders: Discharge Order (Routine); Ordered 12/26/20 Ordered By: Amber Perez Diet: advance to usual diet and diabetic diet Activity on Discharge: As tolerated Stand Alone Forms: Patient Portal Discharge page Other Ambulatory Orders: Basic Metabolic Panel Fasting (Routine) Timeframe: 20201229 Facility: [facility] - Location: Laboratory Ordered By: Amber Perez Complete Blood Count no Diff (Routine) Timeframe: 20201229 Facility: [facility] - Location: Laboratory Ordered By: Amber Perez Care Plan Goals: diabetic foot ulcer- right 5th toe, discoloration, almost appears necrotic: Initially started on IV Vanco and Zosyn.- Pod 1 status post amputation right 5th toe. Patient is stable with an apparent fever during the night. Wounds are clean and intact without evidence of infection. Bone culture sent of obvious osteomyelitis. Patient is discharged he should follow up in Dr De Guzman's office in approximately 1 week for wound check. Oral antibiotics as recommended by Dr. Rodriguez. VNA for dressing changes q.o.d. with silver calcium alginate, fluff gauze, Kerlix, and Hamzah bandage loosely applied. Surgical shoe should be worn if ambulating. I recommended minimal ambulation for the next several weeks. Health Concerns: as above. Plan of Treatment: as above. Assessment: as above.
--- NOTE | 2020-12-26 14:25 | MHC.CM.PN ---
CM met with pt who is cleared for DC. Pt will DC home with [facility] for senior care services.
--- NOTE | 2020-12-26 14:32 | PM.IDPN ---
Subjective Subjective Date of Service: 12/26/20 Interval History: he has no changes Objective Data Labs CBC & Chem 7: 12/26/20 06:03 12/26/20 06:03 Labs: Laboratory Results - last 24 hr 12/25/20 12/25/20 12/25/20 14:11 16:12 20:28 Hgb Hct Sodium Potassium Chloride Carbon Dioxide Anion Gap BUN Creatinine Estim Creat Clear Calc Estimated GFR POC Glucose 195 H 157 H Random Glucose Calcium Vancomycin Trough 11.8 12/26/20 12/26/20 12/26/20 06:03 06:03 07:09 Hgb 8.7 L Hct 27.9 L Sodium 139 Potassium 4.0 Chloride 108 Carbon Dioxide 23 Anion Gap 12 BUN 24 H Creatinine 1.65 H Estim Creat Clear Calc 60.2 Estimated GFR 44 POC Glucose 127 H Random Glucose 119 H D Calcium 8.0 L Vancomycin Trough 12/26/20 11:52 Hgb Hct Sodium Potassium Chloride Carbon Dioxide Anion Gap BUN Creatinine Estim Creat Clear Calc Estimated GFR POC Glucose 172 H Random Glucose Calcium Vancomycin Trough Microbiology Microbiology Results: Microbiology 12/25/20 Unknown Toe Right Fifth Gram Stain - Final 12/25/20 Unknown Toe Right Fifth Routine Culture - Preliminary Culture in progress. 12/25/20 Unknown Toe Right Fifth Anaerobic Culture - Preliminary Culture in progress. 12/23/20 21:43 Blood - Venous Blood Culture - Preliminary No growth after 48 hours. 12/23/20 21:42 Blood - Venous Blood Culture - Preliminary No growth after 48 hours. Physical Exam Vital Signs: Vital Signs: Last Vital Signs Temp 96.7 F L 12/26/20 07:22 Pulse 103 H 12/26/20 09:53 Resp 18 12/26/20 07:22 BP 144/86 H 12/26/20 09:53 Pulse Ox 96 12/26/20 07:22 Body Mass Index 34.0 Const: General: cooperative HENMT: Mouth: Normal oral and palatal mucosa present Resp: Effort & Inspection: normal respiratory effort Cardio: Rate: regular rate Rhythm: regular rhythm GI: Palpation (GI): Soft to palpation and nontender Extrem: Other: no change Assessment and Plan Assessment and plan (1) CKD (chronic kidney disease): Status: Acute (2) Amputation of toe of right foot: Problem details: infected foci removal Status: Acute Assessment and Plan: Po Augmentin and Doxycycline on discharge probably one week Time Spent With Patient Time: Total time spent is greater than 50% in coordination of care (as documented) at patient's floor/unit and/or counseling patient: Time with patient: 15 - 24 minutes
[2020-12-26] MEDS: Amoxicillin/Potassium Clav 875 MG TABLET PO (15:56)
--- NOTE | 2020-12-26 16:01 | P.F2F_ITS ---
Service Date Service Date: 12/26/20 Encounter Date of encounter: 12/26/20 Encounter: Diabetic foot ulcer status post surgery, anemia. Reasons for Services Homebound: Leaving the home is medically contraindicated at this time without the asist of a device and/or another person due th the listed conditions above and below. Homebound supporting statement: Patient is generalized weak post hospitalization and need help with lab draws as well as upon appointments. Certification: Based on the above findings, I certify that this patient is confined to the home and needs intermittent senior care care, physical therapy and/or speech therapy, or continues to need occupational therapy. The patient is under my care, and I have initiated the establishment of the plan of care. The patient will be followed by a physician who will periodically review the plan of care.
== END 2020-12-26 17:39 | disposition home health service (06) | DRG 314 ==
LOC: HO.ED 23:26 → HO.EDOVER 23:46 → HO.S3 12-24 07:33
PROVIDERS: Surgery; Admitting Provider Internal Medicine; Emergency Provider Emergency Medicine Emergency Medical Services; PCP Internal Medicine; Visit Provider Internal Medicine
PROC: 0Y6X0Z0 Detachment at Right 5th Toe, Complete, Open Approach (ICD-10-PCS; principal; 2020-12-25 12:00)
DX: E11.621 Type 2 diabetes mellitus with foot ulcer (principal); E11.22 Type 2 diabetes mellitus with diabetic chronic kidney disease; I13.10 Hypertensive heart and chronic kidney disease without heart failure, with stage 1 through stage 4 chronic kidney disease, or unspecified chronic kidney disease; M86.9 Osteomyelitis, unspecified; L97.516 Non-pressure chronic ulcer of other part of right foot with bone involvement without evidence of necrosis; E11.69 Type 2 diabetes mellitus with other specified complication; D63.1 Anemia in chronic kidney disease; N40.0 Benign prostatic hyperplasia without lower urinary tract symptoms; I50.9 Heart failure, unspecified; E11.65 Type 2 diabetes mellitus with hyperglycemia; Z20.822 Contact with and (suspected) exposure to COVID-19; Z95.0 Presence of cardiac pacemaker; N18.9 Chronic kidney disease, unspecified; Z79.84 Long term (current) use of oral hypoglycemic drugs; Z79.899 Other long term (current) drug therapy
CPT/HCPCS: 36415; 73660; 80048; 80076; 80202; 82272; 82607; 82728; 82746; 82947; 83605; 85014; 85018; 85025; 85610; 85652; 85730; 86140; 86850; 86900; 87040; 87071; 87073; 87147; 87186; 87205; 87635; 88305; 88311; 96365; 99024; 99285; J0690; J2250; J2543; J3370

== ENCOUNTER → 2021-01-02 08:08 | Outpatient (BNVA) | payer BC, SELFPAY | PROVIDERS: PCP Internal Medicine; Visit Provider Surgery ==

== ENCOUNTER → 2021-01-20 15:15 | Outpatient (BNVA) | payer BC, SELFPAY | PROVIDERS: PCP Internal Medicine; Referring Provider Internal Medicine; Visit Provider Surgery ==

== ENCOUNTER 2021-01-29 13:56 | Outpatient (RCR) | payer BC, SELFPAY | END 2021-06-12 12:17 | disposition home or self-care (01) | LOC: HO.WCC 13:56 | PROVIDERS: Visit Provider Surgery | DX: L97.512 Non-pressure chronic ulcer of other part of right foot with fat layer exposed (principal); T87.89 Other complications of amputation stump | CPT/HCPCS: 11042; 11043; 17250; 99212 ==

== ENCOUNTER → 2021-02-04 14:06 | Outpatient (BNVA) | payer BC, SELFPAY | PROVIDERS: PCP Internal Medicine; Visit Provider Internal Medicine ==

== ENCOUNTER → 2021-02-12 08:48 | Outpatient (BNVA) | payer BC, SELFPAY | PROVIDERS: PCP Internal Medicine; Visit Provider Surgery ==

== ENCOUNTER → 2021-03-12 08:26 | Outpatient (BNVA) | payer BC, SELFPAY | PROVIDERS: PCP Internal Medicine; Visit Provider Surgery ==

== ENCOUNTER → 2021-04-10 10:37 | Outpatient (BNVA) | payer BC, SELFPAY | PROVIDERS: PCP Internal Medicine; Visit Provider Surgery ==

== ENCOUNTER → 2021-04-13 12:40 | Outpatient (BNVA) | payer BC, SELFPAY | PROVIDERS: PCP Internal Medicine; Referring Provider Internal Medicine; Visit Provider Internal Medicine | DX: I11.0 Hypertensive heart disease with heart failure (principal); I50.812 Chronic right heart failure; E11.29 Type 2 diabetes mellitus with other diabetic kidney complication | CPT/HCPCS: 93005 ==

== ENCOUNTER → 2021-05-11 16:27 | Outpatient (REF) | payer BC, SELFPAY | LOC: HO.SL 16:27 | PROVIDERS: PCP Internal Medicine; Visit Provider Internal Medicine | DX: Z13.89 Encounter for screening for other disorder (principal) ==

== ENCOUNTER → 2021-05-14 09:19 | Outpatient (BNVA) | payer BC, SELFPAY | PROVIDERS: PCP Internal Medicine; Visit Provider Surgery ==

== ENCOUNTER → 2021-06-18 08:14 | Outpatient (BNVA) | payer BC, SELFPAY | PROVIDERS: PCP Internal Medicine; Visit Provider Surgery ==

== ENCOUNTER → 2021-10-28 13:36 | Outpatient (BNVA) | payer BC, SELFPAY | PROVIDERS: PCP Internal Medicine; Referring Provider Internal Medicine; Visit Provider Internal Medicine ==

== ENCOUNTER 2021-12-25 06:24 | Outpatient (REF) | payer BC, SELFPAY ==
[2021-12-25 06:36] LABS: MANUAL DIFF FLAG NO
[2021-12-25 07:14] LABS: Basophils Absolute Auto 0.1 X10*3/uL (0.0-0.2); Basophils Percent Auto 0.8 % (0-2); Eosinophils Absolute Auto 0.1 X10*3/uL (0.0-0.4); Eosinophils Percent Auto 1.5 % (0-4); Hematocrit 37.2 % (42.0-52.0); Hemoglobin 11.6 g/dl (14.0-18.0); Imm Gran Abs Auto 0.03 X10*3/uL (0.00-0.03); Imm Gran Pct Auto 0.5 % (0.0-0.4); Lymphocytes Absolute Auto 1.4 X10*3/uL (1.2-4.9); Lymphocytes Percent Auto 20.5 % (20-40); Mean Corpuscular HGB Conc 31.2 g/dl (31.0-36.0); Mean Corpuscular Hemoglobin 25.7 pg (27.0-33.0); Mean Corpuscular Volume 82.3 fL (80.0-98.0); Mean Platelet Volume 10.8 fL (9.4-12.4); Monocytes Absolute Auto 0.6 X10*3/uL (0.1-1.2); Neutrophils Absolute Auto 4.5 x10*3/uL (2.0-8.3); Neutrophils Percent Auto 67.7 % (45-73); Platelet Count 243 X10*3/uL (160-400); Red Blood Count 4.52 X10*6/uL (4.60-5.80); Red Cell Distribution Width 13.2 % (11.0-16.0); White Blood Count 6.6 X10*3/uL (4.8-10.8)
[2021-12-25 07:38] LABS: Estimated Average Glucose 232 mg/dL; Hemoglobin A1c % 9.7 %
[2021-12-25 07:47] LABS: Alanine Aminotransferase 19 U/L (0-40); Alkaline Phosphatase 93 U/L (39-117); Anion Gap 12 (12-20); Aspartate Amino Transferase 18 U/L (5-37); Bilirubin Total 0.3 mg/dL (0.0-1.0); Blood Urea Nitrogen 41 mg/dL (9-16); Calcium 9.3 mg/dL (8.4-10.2); Carbon Dioxide 28 mmol/L (22-29); Chloride 100 mmol/L (96-108); Cholesterol 176 mg/dL; Estimated Glomerular Filt Rate 36; Glucose Fasting 204 mg/dL (60-99); HDL Cholesterol 29 mg/dL; LDL Cholesterol Calculated 120 mg/dl; Potassium 4.6 mmol/L (3.3-5.1); Sodium 135 mmol/L (135-145); Total Protein 7.4 g/dL (6.5-8.0); Triglycerides 139 mg/dL
[2021-12-25 07:51] LABS: B Type Natriuretic Peptide 46 pg/mL (<100)
[2021-12-25 07:57] LABS: Appearance Urine CLEAR; Color Urine YELLOW; Glucose Urine UA 100 MG/DL (NEG); Leukocyte Esterase Urine NEG (NEG); Nitrite Urine NEG (NEG); Specific Gravity - Urine 1.015 (1.005-1.025); Urine Blood NEG (NEG); Urine Ketones NEG (NEG); Urine Protein NEG (NEG-TRACE)
[2021-12-25 08:11] LABS: TSH reflex Free T4 1.38 uIU/mL (0.32-4.0)
[2021-12-25 08:41] LABS: Creatinine Urine 143.68 mg/dL; Microalbum/Creatinine Ratio Ur 46.6 ug/mg cr
== END 2021-12-25 06:25 | disposition home or self-care (01) ==
LOC: HO.LAB 06:24
PROVIDERS: PCP Internal Medicine; Visit Provider Internal Medicine
DX: I13.0 Hypertensive heart and chronic kidney disease with heart failure and stage 1 through stage 4 chronic kidney disease, or unspecified chronic kidney disease (principal); N18.32 Chronic kidney disease, stage 3b; I50.9 Heart failure, unspecified; E11.22 Type 2 diabetes mellitus with diabetic chronic kidney disease; E66.9 Obesity, unspecified; E78.00 Pure hypercholesterolemia, unspecified
CPT/HCPCS: 36415; 80053; 80061; 81003; 82043; 83036; 83880; 84443; 85025

== ENCOUNTER 2022-07-08 09:56 | Outpatient (REF) | payer BC, SELFPAY ==
[2022-07-08 10:21] LABS: MANUAL DIFF FLAG NO
[2022-07-08 10:46] LABS: Basophils Percent Auto 0.5 % (0-2); Eosinophils Absolute Auto 0.1 X10*3/uL (0.0-0.4); Eosinophils Percent Auto 1.2 % (0-4); Hematocrit 33.7 % (42.0-52.0); Hemoglobin 10.7 g/dl (14.0-18.0); Imm Gran Abs Auto 0.03 X10*3/uL (0.00-0.03); Imm Gran Pct Auto 0.5 % (0.0-0.4); Lymphocytes Absolute Auto 1.1 X10*3/uL (1.2-4.9); Lymphocytes Percent Auto 16.6 % (20-40); Mean Corpuscular HGB Conc 31.8 g/dl (31.0-36.0); Mean Corpuscular Hemoglobin 25.5 pg (27.0-33.0); Mean Corpuscular Volume 80.4 fL (80.0-98.0); Mean Platelet Volume 10.5 fL (9.4-12.4); Monocytes Absolute Auto 0.5 X10*3/uL (0.1-1.2); Monocytes Percent Auto 7.8 % (2-11); Neutrophils Absolute Auto 4.8 x10*3/uL (2.0-8.3); Neutrophils Percent Auto 73.4 % (45-73); Platelet Count 226 X10*3/uL (160-400); Red Blood Count 4.19 X10*6/uL (4.60-5.80); Red Cell Distribution Width 12.9 % (11.0-16.0); White Blood Count 6.5 X10*3/uL (4.8-10.8)
[2022-07-08 11:23] LABS: B Type Natriuretic Peptide 67 pg/mL (<100)
[2022-07-08 11:29] LABS: Alanine Aminotransferase 20 U/L (0-40); Albumin Level 3.9 g/dL (3.5-5.0); Alkaline Phosphatase 72 U/L (39-117); Anion Gap 16 (12-20); Aspartate Amino Transferase 20 U/L (5-37); Bilirubin Total 0.2 mg/dL (0.0-1.0); Blood Urea Nitrogen 36 mg/dL (9-16); Calcium 8.9 mg/dL (8.4-10.2); Carbon Dioxide 25 mmol/L (22-29); Chloride 102 mmol/L (96-108); Cholesterol 167 mg/dL; Estimated Glomerular Filt Rate 37; Glucose Fasting 260 mg/dL (60-99); HDL Cholesterol 32 mg/dL; LDL Cholesterol Calculated 122 mg/dl; Potassium 4.6 mmol/L (3.3-5.1); Sodium 138 mmol/L (135-145); Triglycerides 68 mg/dL
[2022-07-08 11:38] LABS: TSH reflex Free T4 0.94 uIU/mL (0.32-4.0); Vitamin D 25-OH Total 28.1 ng/mL (>30)
[2022-07-08 12:24] LABS: Appearance Urine Clear; Color Urine Yellow; Glucose Urine UA 100 mg/dL (Negative); Leukocyte Esterase Urine Negative (Negative); Nitrite Urine Negative (Negative); PH 5.5 (5.0-9.0); Urine Blood Negative (Negative); Urine Ketones Negative (Negative); Urine Protein Negative (Neg-Trace)
[2022-07-08 12:27] LABS: Microalbum/Creatinine Ratio Ur 89.2 ug/mg cr
== END 2022-07-08 09:57 | disposition home or self-care (01) ==
LOC: HO.LAB 09:56
PROVIDERS: PCP Internal Medicine; Visit Provider Internal Medicine
DX: I11.0 Hypertensive heart disease with heart failure (principal); I50.9 Heart failure, unspecified; E78.00 Pure hypercholesterolemia, unspecified; I11.9 Hypertensive heart disease without heart failure; E55.9 Vitamin D deficiency, unspecified
CPT/HCPCS: 36415; 80053; 80061; 81003; 82043; 82306; 83880; 84443; 85025

== ENCOUNTER → 2022-08-31 07:59 | Outpatient (BNVA) | payer BC, SELFPAY | PROVIDERS: PCP Internal Medicine; Visit Provider Internal Medicine Endocrinology, Diabetes & Metabolism | DX: E11.29 Type 2 diabetes mellitus with other diabetic kidney complication (principal) | CPT/HCPCS: 82947 ==

== ENCOUNTER → 2022-10-01 10:06 | Outpatient (BNVA) | payer BC, SELFPAY | PROVIDERS: PCP Internal Medicine; Visit Provider Dietitian, Registered | DX: E11.29 Type 2 diabetes mellitus with other diabetic kidney complication (principal) | CPT/HCPCS: 97802 ==

== ENCOUNTER 2022-10-15 11:05 | Outpatient (REF) | payer BC, SELFPAY ==
[2022-10-15 11:16] LABS: MANUAL DIFF FLAG NO
[2022-10-15 11:42] LABS: Basophils Percent Auto 0.6 % (0-2); Eosinophils Absolute Auto 0.1 X10*3/uL (0.0-0.4); Eosinophils Percent Auto 1.3 % (0-4); Hematocrit 39.3 % (42.0-52.0); Hemoglobin 12.5 g/dl (14.0-18.0); Imm Gran Abs Auto 0.01 X10*3/uL (0.00-0.03); Imm Gran Pct Auto 0.2 % (0.0-0.4); Lymphocytes Absolute Auto 1.1 X10*3/uL (1.2-4.9); Lymphocytes Percent Auto 21.1 % (20-40); Mean Corpuscular HGB Conc 31.8 g/dl (31.0-36.0); Mean Corpuscular Hemoglobin 25.5 pg (27.0-33.0); Mean Corpuscular Volume 80.2 fL (80.0-98.0); Mean Platelet Volume 10.6 fL (9.4-12.4); Monocytes Absolute Auto 0.4 X10*3/uL (0.1-1.2); Monocytes Percent Auto 7.9 % (2-11); Neutrophils Absolute Auto 3.7 x10*3/uL (2.0-8.3); Neutrophils Percent Auto 68.9 % (45-73); Platelet Count 241 X10*3/uL (160-400); White Blood Count 5.4 X10*3/uL (4.8-10.8)
[2022-10-15 12:06] LABS: Estimated Average Glucose 217 mg/dL; Hemoglobin A1c % 9.2 %
[2022-10-15 12:30] LABS: Alanine Aminotransferase 16 U/L (0-40); Alkaline Phosphatase 70 U/L (39-117); Anion Gap 14 (12-20); Aspartate Amino Transferase 26 U/L (5-37); Bilirubin Total 0.5 mg/dL (0.0-1.0); Blood Urea Nitrogen 31 mg/dL (9-16); Calcium 9.1 mg/dL (8.4-10.2); Carbon Dioxide 27 mmol/L (22-29); Chloride 105 mmol/L (96-108); Cholesterol 191 mg/dL; Estimated Glomerular Filt Rate 36; Glucose Fasting 138 mg/dL (60-99); HDL Cholesterol 31 mg/dL; LDL Cholesterol Calculated 143 mg/dl; Potassium 4.5 mmol/L (3.3-5.1); Sodium 141 mmol/L (135-145); Total Protein 7.1 g/dL (6.5-8.0); Triglycerides 89 mg/dL
[2022-10-15 12:46] LABS: TSH reflex Free T4 0.53 uIU/mL (0.32-4.0); Vitamin D 25-OH Total 15.4 ng/mL (>30)
[2022-10-15 12:53] LABS: Appearance Urine Clear; Color Urine Yellow; Glucose Urine UA Negative (Negative); Leukocyte Esterase Urine Negative (Negative); Nitrite Urine Negative (Negative); UMIC TRIGGER UACC YES; Urine Blood Negative (Negative); Urine Ketones Negative (Negative); Urine Protein 30 (1+) mg/dL (Neg-Trace)
[2022-10-15 12:58] LABS: Bacteria Urine None Seen (None Seen); Hyaline Casts Urine 0-2 /LPF (0-2); RBC Urine 0-2 /HPF (0-2); Squamous Epithelial Cell Urine 0-2 /HPF (0-2); WBC Urine 0-5 /HPF (0-5)
[2022-10-15 14:40] LABS: Creatinine Urine 103.52 mg/dL; Microalbum/Creatinine Ratio Ur 179.6 ug/mg cr
== END 2022-10-15 11:06 | disposition home or self-care (01) ==
LOC: HO.LAB 11:05
PROVIDERS: PCP Internal Medicine; Visit Provider Internal Medicine
DX: I10 Essential (primary) hypertension (principal); E55.9 Vitamin D deficiency, unspecified; E11.9 Type 2 diabetes mellitus without complications; E78.00 Pure hypercholesterolemia, unspecified
CPT/HCPCS: 36415; 80053; 80061; 81001; 82043; 82306; 83036; 84443; 85025

== ENCOUNTER → 2022-12-09 09:19 | Outpatient (BNVA) | payer BC, SELFPAY | PROVIDERS: PCP Internal Medicine; Visit Provider Dietitian, Registered | DX: E11.29 Type 2 diabetes mellitus with other diabetic kidney complication (principal); Z71.6 Tobacco abuse counseling | CPT/HCPCS: 97803 ==

== ENCOUNTER 2023-01-21 10:52 | Outpatient (REF) | payer BC, SELFPAY ==
[2023-01-21 11:02] LABS: MANUAL DIFF FLAG NO
[2023-01-21 11:52] LABS: Basophils Absolute Auto 0.1 X10*3/uL (0.0-0.2); Basophils Percent Auto 1.2 % (0-2); Eosinophils Absolute Auto 0.1 X10*3/uL (0.0-0.4); Eosinophils Percent Auto 1.5 % (0-4); Hematocrit 40.2 % (42.0-52.0); Hemoglobin 12.8 g/dl (14.0-18.0); Imm Gran Abs Auto 0.01 X10*3/uL (0.00-0.03); Imm Gran Pct Auto 0.2 % (0.0-0.4); Lymphocytes Absolute Auto 1.3 X10*3/uL (1.2-4.9); Lymphocytes Percent Auto 22.8 % (20-40); Mean Corpuscular HGB Conc 31.8 g/dl (31.0-36.0); Mean Corpuscular Hemoglobin 26.2 pg (27.0-33.0); Mean Corpuscular Volume 82.4 fL (80.0-98.0); Mean Platelet Volume 10.9 fL (9.4-12.4); Monocytes Absolute Auto 0.5 X10*3/uL (0.1-1.2); Monocytes Percent Auto 8.1 % (2-11); Neutrophils Absolute Auto 3.9 x10*3/uL (2.0-8.3); Neutrophils Percent Auto 66.2 % (45-73); Platelet Count 225 X10*3/uL (160-400); Red Blood Count 4.88 X10*6/uL (4.60-5.80); Red Cell Distribution Width 13.2 % (11.0-16.0); White Blood Count 5.9 X10*3/uL (4.8-10.8)
[2023-01-21 12:18] LABS: Appearance Urine Clear; Color Urine Yellow; Glucose Urine UA Negative (Negative); Leukocyte Esterase Urine Negative (Negative); Nitrite Urine Negative (Negative); UMIC TRIGGER UACC YES; Urine Blood Negative (Negative); Urine Ketones Negative (Negative); Urine Protein 30 (1+) mg/dL (Neg-Trace)
[2023-01-21 12:21] LABS: Bacteria Urine None Seen (None Seen); Hyaline Casts Urine 0-2 /LPF (0-2); RBC Urine 0-2 /HPF (0-2); Squamous Epithelial Cell Urine 0-2 /HPF (0-2); WBC Urine 0-5 /HPF (0-5)
[2023-01-21 12:48] LABS: Alanine Aminotransferase 20 U/L (0-40); Albumin Level 4.1 g/dL (3.5-5.0); Alkaline Phosphatase 65 U/L (39-117); Anion Gap 12 (12-20); Aspartate Amino Transferase 24 U/L (5-37); Bilirubin Total 0.6 mg/dL (0.0-1.0); Blood Urea Nitrogen 20 mg/dL (9-16); Calcium 9.7 mg/dL (8.4-10.2); Carbon Dioxide 30 mmol/L (22-29); Chloride 104 mmol/L (96-108); Cholesterol 113 mg/dL; Estimated Glomerular Filt Rate 40; Glucose Fasting 110 mg/dL (60-99); HDL Cholesterol 33 mg/dL; LDL Cholesterol Calculated 71 mg/dl; Potassium 4.6 mmol/L (3.3-5.1); Sodium 141 mmol/L (135-145); Total Protein 7.2 g/dL (6.5-8.0); Triglycerides 48 mg/dL
[2023-01-21 12:50] LABS: Creatinine Urine 80.83 mg/dL; Microalbum/Creatinine Ratio Ur 296.9 ug/mg cr
[2023-01-21 13:07] LABS: TSH reflex Free T4 0.76 uIU/mL (0.32-4.0); Vitamin D 25-OH Total 13.7 ng/mL (>30)
== END 2023-01-21 10:53 | disposition home or self-care (01) ==
LOC: HO.LAB 10:52
PROVIDERS: PCP Internal Medicine; Visit Provider Internal Medicine
DX: I10 Essential (primary) hypertension (principal); E55.9 Vitamin D deficiency, unspecified; E11.9 Type 2 diabetes mellitus without complications; E78.00 Pure hypercholesterolemia, unspecified; R30.0 Dysuria
CPT/HCPCS: 36415; 80053; 80061; 81001; 82043; 82306; 84443; 85025

== ENCOUNTER → 2023-03-18 15:33 | Outpatient (BNVA) | payer BC, SELFPAY | PROVIDERS: PCP Internal Medicine; Visit Provider Internal Medicine Endocrinology, Diabetes & Metabolism | DX: E11.22 Type 2 diabetes mellitus with diabetic chronic kidney disease (principal); N18.30 Chronic kidney disease, stage 3 unspecified; Z79.4 Long term (current) use of insulin | CPT/HCPCS: 82947 ==

== ENCOUNTER → 2023-03-29 23:59 | Outpatient (BNV) | payer BC, SELFPAY ==
--- NOTE | 2023-04-07 09:17 | MHC.OFFVIS ---
Intake Intake Visit Reasons: Remote HF Monitoring- [employer] Allergies regadenoson [From Lexiscan] Adverse Reaction (Severe, Verified 03/18/23 15:49) seizure type activity PFSH Medical History Benign essential hypertension BPH (benign prostatic hyperplasia) CHF (congestive heart failure) Chronic kidney disease (CKD), stage III (moderate) Chronic right heart failure CKD (chronic kidney disease) Combined systolic and diastolic congestive heart failure Complete heart block Diabetic foot ulcer with osteomyelitis Essential hypertension Heart block History of amputation of toe Hyperlipidemia Hypertension Normally functioning cardiac pacemaker present Obesity (BMI 30-39.9) Pacemaker Proteinuria Pure hypercholesterolemia Type 2 diabetes mellitus Surgical History History of cardiac pacemaker (~04/15/20) Type 2 diabetes mellitus with other diabetic kidney complication Family History Mother CVA (cerebral vascular accident) Diabetes Social History Housing: Apartment Alcohol intake: never Patient Tobacco Use Status: Never used Tobacco e-Cigarette/Vaping Use: Never Used Second Hand Smoke Exposure: Yes service: Yes Current occupational status: employed Cognitive needs: No Hearing needs: No Vision needs: No Office Procedures Cardiac Device Check Cardiac Device Check Details: Date of service- 03/29/2023; based on impedance data and physiological variables, there is no evidence of worsening congestive heart failure. Reduced heart rate variability. Activity 21% the day. No atrial burden or PVCs. [id number] Cardiac Device Interrogation, cardio physiologic monitor Procedure code (CPT) selection complete Assessment & Plan Assessment & Plan (1) Chronic right heart failure: Code(s): I50.812 - Chronic right heart failure Coding Level of Care Code Procedure Only Diagnoses Chronic right heart failure I50.812 CPT Codes Cardiac Device Check - Cardiac Device 15: [id number] Cardiac Device Interrogation, cardio physiologic monitor ([id number])
== END ==
PROVIDERS: PCP Internal Medicine; Visit Provider Internal Medicine
DX: I50.812 Chronic right heart failure (principal)
CPT/HCPCS: 93297

== ENCOUNTER 2023-04-11 13:29 | Outpatient (AMB) | payer BC, SELFPAY ==
--- NOTE | 2023-04-11 13:59 | MHC.AMDMED ---
Intake Intake Visit Reasons: DM Insurance Rater Required: No Accompanied by: Self / Same As Patient Allergies regadenoson [From Lexiscan] Adverse Reaction (Severe, Verified 03/18/23 15:49) seizure type activity HPI Comprehensive Diabetes Asmnt General Diabetes type type 2 Age of onset 2004 Comorbidities reports hypertension and hyperlipidemia Medications Current medications reviewed, see updated home meds list Uses insulin pump No Past diabetes medications reports non-insulin injectables and long acting insulin Education What would you like to learn about living with diabetes? eat healthy and be active Patient comprehension yes Defines diabetes in basic terms Most Recent Diabetes Results: Microalb/Creat Ratio 296.9 ug/mg cr 01/21/23 Cholesterol 113 mg/dL 01/21/23 HDL Cholesterol 33 mg/dL 01/21/23 Triglycerides 48 mg/dL 01/21/23 Creatinine 1.75 mg/dL (0.5-1.4) H 01/21/23 Blood Urea Nitrogen 20 mg/dL (9-16) H 01/21/23 Sodium 141 mmol/L (135-145) 01/21/23 Potassium 4.6 mmol/L (3.3-5.1) 01/21/23 Chloride 104 mmol/L (96-108) 01/21/23 Carbon Dioxide 30 mmol/L (22-29) H 01/21/23 Calcium 9.7 mg/dL (8.4-10.2) 01/21/23 AST 24 U/L (5-37) 01/21/23 ALT 20 U/L (0-40) 01/21/23 Total Protein 7.2 g/dL (6.5-8.0) 01/21/23 Albumin 4.1 g/dL (3.5-5.0) 01/21/23 [facility] Medical History Benign essential hypertension BPH (benign prostatic hyperplasia) CHF (congestive heart failure) Chronic kidney disease (CKD), stage III (moderate) Chronic right heart failure CKD (chronic kidney disease) Combined systolic and diastolic congestive heart failure Complete heart block Diabetic foot ulcer with osteomyelitis Essential hypertension Heart block History of amputation of toe Hyperlipidemia Hypertension Normally functioning cardiac pacemaker present Obesity (BMI 30-39.9) Pacemaker Proteinuria Pure hypercholesterolemia Type 2 diabetes mellitus Surgical History History of cardiac pacemaker (~04/15/20) Type 2 diabetes mellitus with other diabetic kidney complication Family History Mother CVA (cerebral vascular accident) Diabetes Social History Housing: Apartment Alcohol intake: never Patient Tobacco Use Status: Never used Tobacco e-Cigarette/Vaping Use: Never Used Second Hand Smoke Exposure: Yes service: Yes Current occupational status: employed Cognitive needs: No Hearing needs: No Vision needs: No Assessment & Plan Assessment & Plan (1) Type 2 diabetes mellitus with other diabetic kidney complication: Code(s): E11.29 - Type 2 diabetes mellitus with other diabetic kidney complication Plan: Diabetes self-management education and support participation record Assessment/scale: 1= needs instructed? 2= needs review? 3= comprehend keep point? 4= demonstrates understanding/ competent? NC= Not Covered Topics Learning Objective: Initial visit Initial or post srvc Initial or post srvc Initial or post srvc Initial or post srvc Initial or post srvc Post srvc Comments Pre Edu-assessment/plan Outcome or reassess Outcome or reassess Outcome or reassess Outcome or reassess Outcome or reassess Outcome or reassess Diabetes pathophysiology 2 Healthy eating 2 Being active 2 Taking medication 2 Monitoring glucose 2 Acute complication Chronic complicated 2 Lifestyle and healthy coping Diabetes distress in support ?Diabetes pathophysiology: ?Defined diabetes med identify own type of diabetes; list 3 options for treating diabetes Healthy eating: ?Described effect of type, amount and ?timing of food on blood glucose; list 3 methods for planning meal Being active: ?State effect of exercise on blood glucose level Taking medication: ?State effect of diabetes medications on diabetes; name diabetes medications taking, action and side effects Monitoring glucose: ?Identify recommended blood glucose targets and personal target Acute complication: ?List symptoms and treatment of hyper and hypoglycemia, DKA, sick day guidelines and guidelines for severe weather or situations of crisis and diabetes supply manage Chronic complication: ?To find the relationship of blood glucose levels to long-term complications of diabetes in screening and preventative measures Lifestyle and healthy coping: ?Described lifestyle and healthy coping strategies to rule out diabetes self-management Diabetes to stress and support: ?Recognize Diabetes to stress and be able to identified support options Learning objectives: The patient was provided with verbal and written education on the following topics as outlined below. The patient met all learning objectives and was able to verbalize understanding and provide teach back of education topics discussed . The patient was provided with the opportunity to ask questions and all questions were answered. Patient Assessment Assess patient education level/literacy/barriers Patient questions/concerns, patient diagnosed with type 2 diabetes in 2004. Patient's last A1c 6.3% on 01/17/2023. Down from 10.6 % in August 2022. Patient is currently taking Trulicity 0.75 mg weekly Patient is also prescribed Basaglar 10 units daily, patient states that when his glucose levels are within target he skips Basaglar dose. Occasionally patient reports he is experiences symptoms of hypoglycemia. He does not test glucose at this time he usually just has a snack. Recommended to patient he test when experiencing the symptoms to rule out if he is experiencing hypoglycemia. If is a true hypoglycemic event reviewed rule of 15s to treat. Discussed with patient the importance of letting PCP know if he is experiencing multiple hypoglycemic events in a week in order to have adjustment in diabetes medication. What is Diabetes? Pathophysiology How the body produces and uses insulin Identify type of DM Risk factors Signs of Diabetes Brief overview of Diabetes Management Monitoring blood sugar Following a meal plan Regular exercise Maintaining a healthy weight Taking medication as needed Members of the care team (PCP, RN, MA, RD, CDE, drill sharpener operator) Blood glucose monitoring When/how often to test Target blood sugar ranges Patient testing glucose once a day Fasting glucose range from 111-167 mg/dL Introduction to Nutrition Importance of healthy diet in managing DM Diet is personalized to individual preference Review patient?s regular diet/food preferences Who prepares meals/does food shopping/ Dining out?/ Barriers? How diet effects glucose Eating 3 balanced meals a day with small, healthy snacks between meals Review food groups Carbohydrates: What is a carbohydrate/Which food/food groups are considered carbohydrates Effect of carbohydrates on blood glucose Portion sizes Reading food labels Basic carb counting (if applicable per nursing assessment) Plate method Meal planning Recommendations: Follow plate method, consistent carbs and read nutritional labels. Smart Goal: Patient will test glucose at very times of the day, especially when experiencing symptoms of hypoglycemia Educational Materials: The patient was provided with the following written educational materials: Planning Healthy Meals, rule of 15s Handouts Patient Response to instructions: Comprehension of Instructions: Fair Readiness to make changes: Contemplation How confident they feel about making changes: Positive Patient Instructions: Include regular daily activity. ADA recommends 30 minutes of exercise 5 days a week. Weight loss talk to PCP or Linux Programmer before starting new plan. Test blood sugar as directed; Fasting and 2hpp largest meal. Watch trends in results. Utilize results and to assess how food, physical activity and medications affect blood sugar results. Bring glucometer or CGM to next visit. Be knowledgeable about diabetes medication, its action, side effects, efficacy, toxicity, prescribed dosage, appropriate timing and frequency of administration, effect of missed and delayed doses and instructions for storage, travel and safety. Problem solving techniques to monitor hypo/hyperglycemia episodes and treatments. Reduce risk reduction behaviors, smoking cessation, regular eye, foot and dental examinations. Follow-up with precision crop manager in 3 months Coding Level of Care Code Est Pt Level 1 (13447) Diagnoses Type 2 diabetes mellitus with other diabetic kidney complication E11.29
== END 2023-04-11 14:04 | disposition home or self-care (01) ==
PROVIDERS: PCP Internal Medicine; Visit Provider Registered Nurse Diabetes Educator
DX: E11.29 Type 2 diabetes mellitus with other diabetic kidney complication (principal)
CPT/HCPCS: 99211

== ENCOUNTER → 2023-04-11 13:29 | Outpatient (BNVA) | payer BC, SELFPAY | PROVIDERS: PCP Internal Medicine; Visit Provider Registered Nurse Diabetes Educator ==

== ENCOUNTER 2023-04-19 12:30 | Outpatient (AMB) | payer BC, SELFPAY ==
[2023-04-19 12:45] VITALS: BP 116/70; PULSE 81; BMI 36.4
--- NOTE | 2023-04-19 12:45 | MHC.OFFVIS ---
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 Allergies regadenoson [From Lexiscan] Adverse Reaction (Severe, Verified 04/19/23 12:48) seizure type activity Medication List - Last Reconciled 04/19/23 by Ugo Quintero MD alcohol swabs (BD Alcohol Swabs) 1 pad topical QID amlodipine 10 mg PO DAILY 90 days atorvastatin 20 mg PO BEDTIME 90 days blood sugar diagnostic (OneSource Virtualuch Verio test strips) 1 strip miscellaneous TID 30 days blood sugar diagnostic (RocketPlayTouch Ultra Test strips) As directed -tests 4 X/day blood-glucose meter (OneSource Virtualuch Ultra2 Meter) As directed tests 4 X/day bumetanide 2 mg PO BID 30 days dulaglutide (Trulicity) 0.75 mg (0.5 mL) subcut QWEEK flash glucose scanning reader ([place] DesignsStyle Tish 2 [place]) As directed flash glucose sensor (FreeStyle Tish 2 Sensor kit) As directed change every 14 days hydralazine 100 mg PO TID 90 days insulin glargine (Basaglar KwikPen U-100 Insulin) 10 units (0.1 mL) subcut QPM 30 days isosorbide mononitrate ER 60 mg PO DAILY labetalol 100 mg PO BID lancets As directed lancets (OneSource Virtualuch UltraSoft Lancets) As directed-tests 4 X/day pen needle, diabetic As directed polymyxin B sulf-trimethoprim 10,000 unit- 1 mg/mL 1 drp ophthalmic (eye) Q4H 7 days spironolactone 50 mg (2 x 25 mg) PO QAM tamsulosin 0.4 mg PO DAILY HPI HPI Comments History of Present Illness Details Quintin returns for follow-up of congestive heart failure. To recall, he was admitted to the hospital with congestive heart failure in March 2020. Apparently was having a lot of leg swelling as well as scrotal swelling. Then he was put on diuretics and lost more than 75 lb. He was also found to be in 2-1 heart block. Underwent permanent pacemaker implantation. Multiple vascular risk factors including type 2 diabetes and hypertension. Since last seen, he is actually doing quite well. He states he has not had any shortness of breath or chest pain or in fact anything cardiac sounding. No significant leg swelling either. [facility] Medical History Benign essential hypertension BPH (benign prostatic hyperplasia) CHF (congestive heart failure) Chronic kidney disease (CKD), stage III (moderate) Chronic right heart failure CKD (chronic kidney disease) Combined systolic and diastolic congestive heart failure Complete heart block Diabetic foot ulcer with osteomyelitis Essential hypertension Heart block History of amputation of toe Hyperlipidemia Hypertension Normally functioning cardiac pacemaker present Obesity (BMI 30-39.9) Pacemaker Proteinuria Pure hypercholesterolemia Type 2 diabetes mellitus Surgical History History of cardiac pacemaker (~04/15/20) Type 2 diabetes mellitus with other diabetic kidney complication Family History Mother CVA (cerebral vascular accident) Diabetes Social History Housing: Apartment Alcohol intake: never Patient Tobacco Use Status: Never used Tobacco e-Cigarette/Vaping Use: Never Used Second Hand Smoke Exposure: Yes service: Yes Current occupational status: employed Cognitive needs: No Hearing needs: No Vision needs: No Review of Systems Const Denies weakness ENT Denies dizziness Card Denies chest pain, Denies chest pain with activity, Denies syncope, Denies rapid heart rate, Denies pedal edema, Denies edema, Denies leg edema, Denies lightheadedness, Denies palpitations, Denies dyspnea, Denies dyspnea on exertion and Denies orthopnea Resp Denies cough, Denies dyspnea and Denies dyspnea on exertion GI Denies hematochezia and Denies change in stool character Musc Denies abnormal gait, Denies muscle cramps, Denies muscle weakness, Denies numbness, Denies radiating pain into limb and Denies tingling Neuro Denies abnormal gait, Denies dizziness, Denies syncope, Denies numbness, Denies tingling and Denies weakness Endo Denies palpitations Physical Exam Vital Signs: Last Vital Signs Pulse 81 04/19/23 12:45 BP 116/70 04/19/23 12:45 BMI result Body Mass Index 36.4 Const General: comfortable and no acute distress Orientation/consciousness: patient oriented x3 HEENT Other: Unremarkable Head: Yes normal to inspection Neck Neck: Yes normal visual inspection Chest Chest palpation & inspection: normal inspection of the chest Resp Auscultation: clear to auscultation bilaterally Cardio Palpation: normal PMI Heart sounds: S1 normal heart sound present, S2 normal heart sound present, no gallops, no murmurs and no rubs GI Palpation (GI): Soft to palpation Back/Spine/Pelvis Other: unremarkable Skin General skin exam: no rashes or lesions noted Neuro General: patient oriented x3 Extrem General: Yes normal to inspection Psych Mental Status: mental status grossly normal Office Procedures EKG Details: EKG with atrial sensed, ventricular paced rhythm at 81/Min. [id number], Complete Assessment & Plan Assessment & Plan (1) Chronic right heart failure: Code(s): I50.812 - Chronic right heart failure Plan: Clinically, seems euvolemic. Continue Bumex. No changes. In the past, stress test attempted but he had seizures after Lexiscan. Hence if ischemic workup is necessary we may have to pursue cardiac catheterization. Otherwise, sleep study requested multiple times but not performed. (2) Essential hypertension: Code(s): I10 - Essential (primary) hypertension Plan: Stable. No changes. (3) Type 2 diabetes mellitus with other diabetic kidney complication: Code(s): E11.29 - Type 2 diabetes mellitus with other diabetic kidney complication Plan: Last hemoglobin A1c is 6.4%. Listed to be on insulin and Trulicity. (4) Normally functioning cardiac pacemaker present: Code(s): Z95.0 - Presence of cardiac pacemaker Plan: Being followed remotely. We will recheck in 1 year in clinic. Coding Level of Care Code Est Pt Level 4 (53495) Diagnoses Chronic right heart failure I50.812 Essential hypertension I10 Type 2 diabetes mellitus with other diabetic kidney complication E11.29 Normally functioning cardiac pacemaker present Z95.0 CPT Codes EKG - CPT: 91353-[id number], Complete ([id number])
== END 2023-04-19 13:07 | disposition home or self-care (01) ==
PROVIDERS: PCP Internal Medicine; Visit Provider Internal Medicine
DX: I50.812 Chronic right heart failure (principal); I10 Essential (primary) hypertension; E11.29 Type 2 diabetes mellitus with other diabetic kidney complication; Z95.0 Presence of cardiac pacemaker
CPT/HCPCS: 93010; 99214

== ENCOUNTER → 2023-04-19 12:30 | Outpatient (BNVA) | payer BC, SELFPAY | PROVIDERS: PCP Internal Medicine; Visit Provider Internal Medicine | DX: I44.0 Atrioventricular block, first degree (principal); I44.7 Left bundle-branch block, unspecified; E11.22 Type 2 diabetes mellitus with diabetic chronic kidney disease; R80.9 Proteinuria, unspecified; I13.0 Hypertensive heart and chronic kidney disease with heart failure and stage 1 through stage 4 chronic kidney disease, or unspecified chronic kidney disease; I50.42 Chronic combined systolic (congestive) and diastolic (congestive) heart failure; N18.30 Chronic kidney disease, stage 3 unspecified; E78.00 Pure hypercholesterolemia, unspecified; E55.9 Vitamin D deficiency, unspecified; Z95.0 Presence of cardiac pacemaker; Z79.4 Long term (current) use of insulin | CPT/HCPCS: 93005 ==

== ENCOUNTER 2023-04-25 06:42 | Outpatient (REF) | payer BC, SELFPAY ==
[2023-04-25 06:58] LABS: MANUAL DIFF FLAG NO
[2023-04-25 07:12] LABS: Basophils Percent Auto 0.6 % (0-2); Eosinophils Absolute Auto 0.1 X10*3/uL (0.0-0.4); Eosinophils Percent Auto 1.6 % (0-4); Hematocrit 39.4 % (42.0-52.0); Hemoglobin 12.3 g/dl (14.0-18.0); Imm Gran Abs Auto 0.02 X10*3/uL (0.00-0.03); Imm Gran Pct Auto 0.3 % (0.0-0.4); Lymphocytes Absolute Auto 1.5 X10*3/uL (1.2-4.9); Lymphocytes Percent Auto 24.6 % (20-40); Mean Corpuscular HGB Conc 31.2 g/dl (31.0-36.0); Mean Corpuscular Hemoglobin 25.9 pg (27.0-33.0); Mean Corpuscular Volume 82.9 fL (80.0-98.0); Mean Platelet Volume 10.4 fL (9.4-12.4); Monocytes Absolute Auto 0.5 X10*3/uL (0.1-1.2); Monocytes Percent Auto 8.5 % (2-11); Neutrophils Percent Auto 64.4 % (45-73); Platelet Count 212 X10*3/uL (160-400); Red Blood Count 4.75 X10*6/uL (4.60-5.80); Red Cell Distribution Width 13.2 % (11.0-16.0); White Blood Count 6.3 X10*3/uL (4.8-10.8)
[2023-04-25 07:24] LABS: Estimated Average Glucose 140 mg/dL; Hemoglobin A1c % 6.5 %
[2023-04-25 07:50] LABS: Alanine Aminotransferase 44 U/L (0-40); Albumin Level 3.8 g/dL (3.5-5.0); Alkaline Phosphatase 60 U/L (39-117); Anion Gap 13 (12-20); Aspartate Amino Transferase 31 U/L (5-37); Bilirubin Total 0.3 mg/dL (0.0-1.0); Blood Urea Nitrogen 27 mg/dL (9-16); Calcium 9.1 mg/dL (8.4-10.2); Carbon Dioxide 24 mmol/L (22-29); Chloride 106 mmol/L (96-108); Cholesterol 123 mg/dL; Estimated Glomerular Filt Rate 42; Glucose Fasting 148 mg/dL (60-99); HDL Cholesterol 36 mg/dL; LDL Cholesterol Calculated 79 mg/dl; Potassium 4.1 mmol/L (3.3-5.1); Sodium 139 mmol/L (135-145); Total Protein 7.3 g/dL (6.5-8.0); Triglycerides 40 mg/dL
[2023-04-25 08:09] LABS: TSH reflex Free T4 1.57 uIU/mL (0.32-4.0); Vitamin D 25-OH Total 15.3 ng/mL (>30)
[2023-04-25 09:02] LABS: Appearance Urine Clear; Color Urine Yellow; Glucose Urine UA Negative (Negative); Leukocyte Esterase Urine Negative (Negative); Nitrite Urine Negative (Negative); PH 5.5 (5.0-9.0); Urine Blood Negative (Negative); Urine Ketones Negative (Negative); Urine Protein Negative (Neg-Trace)
[2023-04-25 09:37] LABS: Creatinine Urine 47.14 mg/dL; Microalbum/Creatinine Ratio Ur 72.1 ug/mg cr
== END 2023-04-25 06:43 | disposition home or self-care (01) ==
LOC: HO.LAB 06:42
PROVIDERS: PCP Internal Medicine; Visit Provider Internal Medicine
DX: E55.9 Vitamin D deficiency, unspecified (principal); R30.0 Dysuria; E78.00 Pure hypercholesterolemia, unspecified; E11.9 Type 2 diabetes mellitus without complications; I10 Essential (primary) hypertension
CPT/HCPCS: 36415; 80053; 80061; 81003; 82043; 82306; 83036; 84443; 85025

== ENCOUNTER → 2023-04-25 23:59 | Outpatient (BNV) | payer BC, SELFPAY ==
--- NOTE | 2023-04-26 13:18 | A.OFFVIS_ITS ---
Intake Intake Visit Reasons: Remote Device Check- [employer]ronik Allergies regadenoson [From Lexiscan] Adverse Reaction (Severe, Verified 04/19/23 12:48) seizure type activity [facility] Medical History Benign essential hypertension BPH (benign prostatic hyperplasia) CHF (congestive heart failure) Chronic kidney disease (CKD), stage III (moderate) Chronic right heart failure CKD (chronic kidney disease) Combined systolic and diastolic congestive heart failure Complete heart block Diabetic foot ulcer with osteomyelitis Essential hypertension Heart block History of amputation of toe Hyperlipidemia Hypertension Normally functioning cardiac pacemaker present Obesity (BMI 30-39.9) Pacemaker Proteinuria Pure hypercholesterolemia Type 2 diabetes mellitus Surgical History History of cardiac pacemaker (~04/15/20) Type 2 diabetes mellitus with other diabetic kidney complication Family History Mother CVA (cerebral vascular accident) Diabetes Social History Housing: Apartment Alcohol intake: never Patient Tobacco Use Status: Never used Tobacco e-Cigarette/Vaping Use: Never Used Second Hand Smoke Exposure: Yes service: Yes Current occupational status: employed Cognitive needs: No Hearing needs: No Vision needs: No Office Procedures Cardiac Device Check Cardiac Device Check Details: Date of service- 04/24/2023 ; Battery life 70%; normal lead parameters; AP 20%; 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 Overall normal device function. [id number] Cardiac Device Interrogation, pacemaker Procedure code (CPT) selection complete Assessment & Plan Assessment & Plan (1) Chronic right heart failure: Code(s): I50.812 - Chronic right heart failure Coding Level of Care Code Procedure Only Diagnoses Chronic right heart failure I50.812 CPT Codes Cardiac Device Check - Cardiac Device 12: [id number] Cardiac Device Interrogation, pacemaker ([id number])
== END ==
PROVIDERS: PCP Internal Medicine; Visit Provider Internal Medicine
DX: I50.812 Chronic right heart failure (principal)
CPT/HCPCS: 93294

== ENCOUNTER 2023-04-26 16:37 | Outpatient (AMB) | payer BC, SELFPAY ==
[2023-04-26 16:38] VITALS: BP 126/80; PULSE 81; O2SAT 98; BMI 37.1
--- NOTE | 2023-04-26 16:38 | MHC.PC.OV ---
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: No Accompanied by: Self / Same As Patient Allergies regadenoson [From Lexiscan] Adverse Reaction (Severe, Verified 04/26/23 16:59) seizure type activity Medication List - Last Reconciled 04/26/23 by Ronnell Glass MD alcohol swabs (BD Alcohol Swabs) 1 pad topical QID amlodipine 10 mg PO DAILY 90 days atorvastatin 20 mg PO BEDTIME 90 days blood sugar diagnostic ([employer] Verio test strips) 1 strip miscellaneous TID 30 days blood sugar diagnostic ([employer] Ultra Test strips) As directed -tests 4 X/day blood-glucose meter ([employer] Ultra2 Meter) As directed tests 4 X/day bumetanide 2 mg PO BID 30 days dulaglutide (Trulicity) 0.75 mg (0.5 mL) subcut QWEEK flash glucose scanning reader (Move LootStyle Tish 2 [place]) As directed flash glucose sensor (FreeStyle Tish 2 Sensor kit) As directed change every 14 days hydralazine 100 mg PO TID 90 days insulin glargine (Basaglar KwikPen U-100 Insulin) 10 units (0.1 mL) subcut QPM 30 days isosorbide mononitrate ER 60 mg PO DAILY labetalol 100 mg PO BID lancets As directed lancets ([employer] UltraSoft Lancets) As directed-tests 4 X/day pen needle, diabetic As directed polymyxin B sulf-trimethoprim 10,000 unit- 1 mg/mL 1 drp ophthalmic (eye) Q4H 7 days spironolactone 50 mg (2 x 25 mg) PO QAM tamsulosin 0.4 mg PO DAILY Tobacco use date assessed: 04/26/23 Dental Screening Dental Screen Date: 04/26/23 Did you have a dental visit in the last 12 months?: No Did you have a dental problem in the last 6 months where you did not have access to dental care?: No Was dental information given to patient?: No HPI DM, CKD, hyperlipidemia, HTN, CAD HPI Details Patient comes in today for his follow up visit States that he feels okay He denies any headaches or dizziness Denies any chest pains, no SOB No nausea/vomiting, no abdominal pain No change in bowel habits noted States that he was recently advised by Dr. Jacobson to just follow up with his PCP for his diabetes as it is now under control and to just go back and see them only if needed Needs a couple of his Rx refilled Had his follow up labs done yesterday - to discuss his results [facility] Medical History Benign essential hypertension BPH (benign prostatic hyperplasia) CHF (congestive heart failure) Chronic kidney disease (CKD), stage III (moderate) Chronic right heart failure CKD (chronic kidney disease) Combined systolic and diastolic congestive heart failure Complete heart block Diabetic foot ulcer with osteomyelitis Essential hypertension Heart block History of amputation of toe Hyperlipidemia Hypertension Normally functioning cardiac pacemaker present Obesity (BMI 30-39.9) Pacemaker Proteinuria Pure hypercholesterolemia Type 2 diabetes mellitus Surgical History History of cardiac pacemaker (~04/15/20) Type 2 diabetes mellitus with other diabetic kidney complication Family History Mother CVA (cerebral vascular accident) Diabetes Social History Housing: Apartment Alcohol intake: never Patient Tobacco Use Status: Never used Tobacco e-Cigarette/Vaping Use: Never Used Second Hand Smoke Exposure: Yes service: Yes Current occupational status: employed Cognitive needs: No Hearing needs: No Vision needs: No Questionnaire PHQ-9 Over the last 2 weeks, how often have you been bothered by any of the following problems? 1. Little interest or pleasure in doing things: not at all 2. Feeling down, depressed, or hopeless: not at all 3. Trouble falling or staying asleep, or sleeping too much: not at all 4. Feeling tired or having little energy: not at all 5. Poor appetite or overeating: not at all 6. Feeling bad about yourself - or that you are a failure or have let yourself or your family down: not at all 7. Trouble concentrating on things, such as reading the newspaper or watching television: not at all 8. Moving or speaking so slowly that other people could have noticed. Or the opposite - being so fidgety or restless that you have been moving around a lot more than usual: not at all 9. Thoughts that you would be better off or of hurting yourself in some way: not at all Total score: 0 Depression Screening Interpretation: Negative 98712 - PHQ-9 Billing: Yes Source: Developed by Drs. Guille Fam, Simran Mcginnis, Sohan Cardenas and colleagues, with an educational fausto from [employer]. Thrive Questionnaire Date Thrive assessed: 04/26/23 I am a: Patient What is your living situation today?: I have a steady place to live Within the past 12 months, did the food you bought not last and you didn't have the money to get more?: Never true Within the past 12 months, did you worry whether your food would run out before you got money to buy more?: Never true Do you have trouble paying for medicines?: No Do you have trouble getting transportation to medical appointments?: No Do you have trouble paying your heating and electricity bill?: No Do you have trouble taking care of your child, family member or friend?: No Do you have trouble with day-to-day activities such as bathing, preparing meals, shopping, managing finances, etc.?: No Are you currently unemployed and looking for a job?: No Are you interested in more education?: No Please select the resources that you would like help with: None Currently or been in a relationship where the following occur: no concerns reported AUDIT C Alcohol Use Questionnaire (AUDIT-C) 1. How often do you have a drink containing alcohol?: Never 3. How often do you have six or more drinks on one occasion?: Never Total Score: 0 Score Reviewed/Action Taken: Yes NEETA-7 AMB Questionnaire NEETA-7 Date NEETA - 7 assessed: 04/26/23 Feeling nervous, anxious, or on edge: 0 = Not at all Not being able to stop or control worryin = Not at all Worrying too much about different things: 0 = Not at all Trouble relaxin = Not at all Being so restless that it is hard to sit still: 0 = Not at all Becoming easily annoyed or irritable: 0 = Not at all Feeling afraid as if something awful might happen: 0 = Not at all Total NEETA-7 score (0-4 normal; 5-9 mild; 10-14 moderate; 15-21 severe): 0 Source: Developed by Drs. Guille Fam, Simran Mcginnis, Sohan Cardenas and colleagues, with an educational fausto from [employer]. NEETA-7 Assessment Billing NEETA-7 Assessment Tool: NEETA-7 Assessment 98249 Review of Systems Const Reports fatigue, Denies fever(s) and Denies headache(s) ENT Denies dysphagia, Denies dizziness, Denies otalgia, Denies headache(s) and Denies sore throat Card Denies chest pain, Denies palpitations and Denies dyspnea Resp Denies cough and Denies dyspnea GI Denies abdominal pain, Denies constipation, Denies dysphagia, Denies heartburn, Denies diarrhea, Denies nausea and Denies vomiting Denies dysuria, Denies nocturia and Denies urinary frequency Skin/Breast Denies lesions and Denies rash Neuro Denies dizziness and Denies headache(s) Endo Reports fatigue and Denies palpitations Physical exam (Primary Care) Vital Signs: Last Vital Signs Pulse 81 04/26/23 16:38 BP 126/80 04/26/23 16:38 Pulse Ox 98 04/26/23 16:38 Oxygen Delivery Method Room Air 04/26/23 16:38 BMI result Body Mass Index 37.1 Tobacco/Smoking Status: Tobacco use Status Tobacco use date assessed 04/26/23 04/26/23 16:41 Patient Tobacco Use Status Never used Tobacco 04/26/23 16:41 e-Cigarette/Vaping Use Never Used 04/26/23 16:41 PHQ-9: PHQ-9 Score PHQ-9: Total score 0 04/26/23 17:06 Depression Screening Interpretation: Negative Thrive Assessment: Date of Thrive Assessment Date Thrive assessed 04/26/23 04/26/23 16:41 Currently or been in a relationship where the following occur: no concerns reported Const General: no acute distress and alert HENMT Ears: TM's normal bilaterally and EAC's normal Throat: Yes posterior oropharynx normal and Yes tonsils normal (no TP congestion) Neck Neck: Yes no lymphadenopathy and Yes supple Resp Auscultation: clear to auscultation bilaterally, no rales and no wheezes Cardio Rate: regular rate Rhythm: regular rhythm Heart sounds: no murmurs GI Palpation (GI): Soft to palpation and nontender Auscultation: normal bowel sounds Skin General skin exam: no rashes or lesions noted Extrem General: Yes no clubbing, cyanosis or edema Results Reviewed Results Reviewed: Laboratory Tests 04/25/23 04/25/23 04/25/23 06:55 06:55 06:55 WBC 6.3 Hgb 12.3 L Hct 39.4 L Plt Count 212 Sodium 139 Potassium 4.1 Creatinine 1.68 H Estimated GFR 42 Fasting Glucose 148 H Hemoglobin A1c % Calcium 9.1 D AST 31 ALT 44 H Triglycerides 40 Cholesterol 123 LDL Cholesterol, Calc 79 HDL Cholesterol 36 25-OH Vitamin D Total 15.3 TSH 1.57 Ur Specific [place] 1.010 Urine Protein Negative Urine Glucose (UA) Negative Urine Blood Negative Microalb/Creat Ratio 04/25/23 04/25/23 06:55 06:55 WBC Hgb Hct Plt Count Sodium Potassium Creatinine Estimated GFR Fasting Glucose Hemoglobin A1c % 6.5 Calcium AST ALT Triglycerides Cholesterol LDL Cholesterol, Calc HDL Cholesterol 25-OH Vitamin D Total TSH Ur Specific [place] Urine Protein Urine Glucose (UA) Urine Blood Microalb/Creat Ratio 72.1 Assessment and Plan Assessment & Plan (1) Type 2 diabetes mellitus with other diabetic kidney complication: Code(s): E11.29 - Type 2 diabetes mellitus with other diabetic kidney complication Plan: HgbA1c was at 6.5% on his labs done yesterday (was at 6.4% a few months ago) - goal is <7.0% Reinforced diabetic diet Continue Basaglar 10 units Q HS and Trulicity 0.75 mg SQ once a week Metformin was discontinued a few months ago due to his declining renal function - serum creatinine was at 1.92 back in September 2022 but has since improved slightly Was seen by Dr. aJcobson again for follow up recently and was reportedly advised to just see his PCP regularly now since his diabetes is under good control Follow up with cake cutter machine as scheduled for diet counseling and diabetic teaching (2) Chronic kidney disease (CKD), stage III (moderate): Code(s): N18.30 - Chronic kidney disease, stage 3 unspecified Qualifiers: Chronic kidney disease stage 3 subtype: stage 3b (GFR 30-44) Qualified Code(s): N18.32 - Chronic kidney disease, stage 3b Plan: Will continue to monitor renal function and GFR closely - his renal function appears to be stabilizing now and his serum creatinine has most recently improved to 1.68 when checked yesterday He was referred to nephrology previously for further evaluation and management a few months ago but it looks like patient never got an appointment scheduled with nephrology (3) Benign essential hypertension: Code(s): I10 - Essential (primary) hypertension Plan: Reinforced low sodium diet - goal is systolic BP of at least 130 mm or less Continue Amlodipine 10 mg QD, Hydralazine 50 mg 2 tablets 3 times a day, Spironolactone 50 mg QD and Labetalol 100 mg BID (4) Combined systolic and diastolic congestive heart failure: Code(s): I50.40 - Unspecified combined systolic (congestive) and diastolic (congestive) heart failure Qualifiers: Heart failure chronicity: unspecified Qualified Code(s): I50.40 - Unspecified combined systolic (congestive) and diastolic (congestive) heart failure Plan: Currently appears compensated Reinforced fluid restriction Continue Isosorbide Mononitrate ER 60 mg QD and Bumetanide 2 mg BID Follow up with cardiology as scheduled (5) Complete heart block: Comment: S/P pacemaker insertion on 04/15/2020 Code(s): I44.2 - Atrioventricular block, complete Plan: S/P pacemaker insertion on 04/15/2020 and he has been doing well since Follow up with cardiology as scheduled (6) Pure hypercholesterolemia: Code(s): E78.00 - Pure hypercholesterolemia, unspecified Plan: Results of his labs done yesterday reviewed and discussed with patient Reinforced low cholesterol diet Continue Atorvastatin 20 mg QD Will recheck his labs again in 4 months for follow up (7) Anemia: Code(s): D64.9 - Anemia, unspecified Qualifiers: Anemia type: due to chronic kidney disease Chronic kidney disease stage: stage 3 (moderate) Chronic kidney disease stage 3 subtype: stage 3b (GFR 30-44) Qualified Code(s): N18.32 - Chronic kidney disease, stage 3b; D63.1 - Anemia in chronic kidney disease Plan: Stable lately; is most likely due to chronic disease, including his CKD H/H were most recently at 12.6/39.4 Was taking Iron supplements in the past but stopped taking it due to constipation (8) Obesity (BMI 30-39.9): Code(s): E66.9 - Obesity, unspecified Plan: Reinforced diet/exercise as tolerated/lose weight Plan Follow up in 4 months Orders: Orders Complete Blood Count Auto Diff 4 Months I10 - Essential (primary) hypertension Comprehensive [place]. Panel Fast 4 Months E78.00 - Pure hypercholesterolemia, unspecified Lipid Panel 4 Months E78.00 - Pure hypercholesterolemia, unspecified Hemoglobin A1c 4 Months E11.9 - Type 2 diabetes mellitus without complications Vitamin B12 and Folate 4 Months E53.8 - Deficiency of other specified B group vitamins B Type Natriuretic Peptide 4 Months I50.40 - Unspecified combined systolic (congestive) and diastolic (congestive) heart failure TSH reflex Free T4 4 Months E78.00 - Pure hypercholesterolemia, unspecified Vitamin D 25-OH Total 4 Months E55.9 - Vitamin D deficiency, unspecified Microalbumin, Random (w Creat) 4 Months E11.9 - Type 2 diabetes mellitus without complications UA CC w/rflx Micro + Cult 4 Months R30.0 - Dysuria Medications: New cholecalciferol (vitamin D3) 50 mcg PO DAILY 90 caps 3RF 90 days E55.9 - Vitamin D deficiency, unspecified Changed From tamsulosin 0.4 mg PO DAILY To tamsulosin 0.4 mg PO DAILY 90 caps 1RF 90 days From isosorbide mononitrate ER 60 mg PO DAILY 90 tabs 3RF To isosorbide mononitrate ER 60 mg PO DAILY 90 tabs 3RF 90 days Coding Level of Care Code Est Pt Level 4 (60641) Diagnoses Type 2 diabetes mellitus with other diabetic kidney complication E11.29 Chronic kidney disease (CKD), stage III (moderate) N18.32 Chronic kidney disease stage 3 subtype: stage 3b (GFR 30-44) Benign essential hypertension I10 Combined systolic and diastolic congestive heart failure I50.40 Heart failure chronicity: unspecified Complete heart block I44.2 Pure hypercholesterolemia E78.00 Anemia N18.32; D63.1 Anemia type: due to chronic kidney disease Chronic kidney disease stage: stage 3 (moderate) Chronic kidney disease stage 3 subtype: stage 3b (GFR 30-44) Obesity (BMI 30-39.9) E66.9 Additional Codes NEETA-7 Assessment Billing - NEETA-7 Assessment Tool: NEETA-7 Assessment 68518 ([id number])
== END 2023-04-26 17:17 | disposition home or self-care (01) ==
PROVIDERS: PCP Internal Medicine; Visit Provider Internal Medicine
DX: I12.9 Hypertensive chronic kidney disease with stage 1 through stage 4 chronic kidney disease, or unspecified chronic kidney disease (principal); E11.29 Type 2 diabetes mellitus with other diabetic kidney complication; N18.32 Chronic kidney disease, stage 3b; I50.40 Unspecified combined systolic (congestive) and diastolic (congestive) heart failure; I44.2 Atrioventricular block, complete; E78.00 Pure hypercholesterolemia, unspecified; D63.1 Anemia in chronic kidney disease; E66.9 Obesity, unspecified
CPT/HCPCS: 99214

== ENCOUNTER → 2023-05-01 23:59 | Outpatient (BNV) | payer BC, SELFPAY ==
--- NOTE | 2023-05-08 10:23 | MHC.OFFVIS ---
Intake Intake Visit Reasons: Remote HF monitoring- [employer] Allergies regadenoson [From Lexiscan] Adverse Reaction (Severe, Verified 04/26/23 16:59) seizure type activity PFSH Medical History Benign essential hypertension BPH (benign prostatic hyperplasia) CHF (congestive heart failure) Chronic kidney disease (CKD), stage III (moderate) Chronic right heart failure CKD (chronic kidney disease) Combined systolic and diastolic congestive heart failure Complete heart block Diabetic foot ulcer with osteomyelitis Essential hypertension Heart block History of amputation of toe Hyperlipidemia Hypertension Normally functioning cardiac pacemaker present Obesity (BMI 30-39.9) Pacemaker Proteinuria Pure hypercholesterolemia Type 2 diabetes mellitus Surgical History History of cardiac pacemaker (~04/15/20) Type 2 diabetes mellitus with other diabetic kidney complication Family History Mother CVA (cerebral vascular accident) Diabetes Social History Housing: Apartment Alcohol intake: never Patient Tobacco Use Status: Never used Tobacco e-Cigarette/Vaping Use: Never Used Second Hand Smoke Exposure: Yes service: Yes Current occupational status: employed Cognitive needs: No Hearing needs: No Vision needs: No Office Procedures Cardiac Device Check Cardiac Device Check Details: Date of service- 05/01/2023; based on impedance data and physiological variables, there is no evidence of worsening congestive heart failure. Activity 17% of day. Acceptable HR variability. [id number] Cardiac Device Interrogation, cardio physiologic monitor Procedure code (CPT) selection complete Assessment & Plan Assessment & Plan (1) Chronic right heart failure: Code(s): I50.812 - Chronic right heart failure Coding Level of Care Code Procedure Only Diagnoses Chronic right heart failure I50.812 CPT Codes Cardiac Device Check - Cardiac Device 15: [id number] Cardiac Device Interrogation, cardio physiologic monitor ([id number])
== END ==
PROVIDERS: PCP Internal Medicine; Visit Provider Internal Medicine
DX: I50.812 Chronic right heart failure (principal)
CPT/HCPCS: 93297

== ENCOUNTER → 2023-06-02 23:59 | Outpatient (BNV) | payer BC, SELFPAY ==
--- NOTE | 2023-06-05 12:51 | MHC.OFFVIS ---
Intake Intake Visit Reasons: Remote HF Monitoring- [employer] Allergies regadenoson [From Lexiscan] Adverse Reaction (Severe, Verified 04/26/23 16:59) seizure type activity PFSH Medical History Benign essential hypertension BPH (benign prostatic hyperplasia) CHF (congestive heart failure) Chronic kidney disease (CKD), stage III (moderate) Chronic right heart failure CKD (chronic kidney disease) Combined systolic and diastolic congestive heart failure Complete heart block Diabetic foot ulcer with osteomyelitis Essential hypertension Heart block History of amputation of toe Hyperlipidemia Hypertension Normally functioning cardiac pacemaker present Obesity (BMI 30-39.9) Pacemaker Proteinuria Pure hypercholesterolemia Type 2 diabetes mellitus Surgical History History of cardiac pacemaker (~04/15/20) Type 2 diabetes mellitus with other diabetic kidney complication Family History Mother CVA (cerebral vascular accident) Diabetes Social History Housing: Apartment Alcohol intake: never Patient Tobacco Use Status: Never used Tobacco e-Cigarette/Vaping Use: Never Used Second Hand Smoke Exposure: Yes service: Yes Current occupational status: employed Cognitive needs: No Hearing needs: No Vision needs: No Office Procedures Cardiac Device Check Cardiac Device Check Details: Date of service- 06/02/2023; based on impedance data and physiological variables, there is no evidence of worsening congestive heart failure. Acceptable heart rate variability. Activity about 8% of the day. [id number] Cardiac Device Interrogation, cardio physiologic monitor Procedure code (CPT) selection complete Assessment & Plan Assessment & Plan (1) Chronic right heart failure: Code(s): I50.812 - Chronic right heart failure Coding Level of Care Code Procedure Only Diagnoses Chronic right heart failure I50.812 CPT Codes Cardiac Device Check - Cardiac Device 15: [id number] Cardiac Device Interrogation, cardio physiologic monitor ([id number])
== END ==
PROVIDERS: PCP Internal Medicine; Visit Provider Internal Medicine
DX: I50.812 Chronic right heart failure (principal)
CPT/HCPCS: 93297

== ENCOUNTER → 2023-07-01 23:59 | Outpatient (BNV) | payer BC, SELFPAY ==
--- NOTE | 2023-07-06 14:11 | MHC.OFFVIS ---
Intake Intake Visit Reasons: Remote HF Monitoring- [employer] Allergies regadenoson [From Lexiscan] Adverse Reaction (Severe, Verified 04/26/23 16:59) seizure type activity PFSH Medical History Benign essential hypertension BPH (benign prostatic hyperplasia) CHF (congestive heart failure) Chronic kidney disease (CKD), stage III (moderate) Chronic right heart failure CKD (chronic kidney disease) Combined systolic and diastolic congestive heart failure Complete heart block Diabetic foot ulcer with osteomyelitis Essential hypertension Heart block History of amputation of toe Hyperlipidemia Hypertension Normally functioning cardiac pacemaker present Obesity (BMI 30-39.9) Pacemaker Proteinuria Pure hypercholesterolemia Type 2 diabetes mellitus Surgical History History of cardiac pacemaker (~04/15/20) Type 2 diabetes mellitus with other diabetic kidney complication Family History Mother CVA (cerebral vascular accident) Diabetes Social History Housing: Apartment Alcohol intake: never Patient Tobacco Use Status: Never used Tobacco e-Cigarette/Vaping Use: Never Used Second Hand Smoke Exposure: Yes service: Yes Current occupational status: employed Cognitive needs: No Hearing needs: No Vision needs: No Office Procedures Cardiac Device Check Cardiac Device Check Details: Date of service- 07/01/2023; based on impedance data and physiological variables, there is no evidence of worsening congestive heart failure. [id number] Cardiac Device Interrogation, cardio physiologic monitor Procedure code (CPT) selection complete Assessment & Plan Assessment & Plan (1) Combined systolic and diastolic congestive heart failure: Code(s): I50.40 - Unspecified combined systolic (congestive) and diastolic (congestive) heart failure Qualifiers: Heart failure chronicity: unspecified Qualified Code(s): I50.40 - Unspecified combined systolic (congestive) and diastolic (congestive) heart failure Coding Level of Care Code Procedure Only Diagnoses Combined systolic and diastolic congestive heart failure, unspecified HF chronicity I50.40 Heart failure chronicity: unspecified CPT Codes Cardiac Device Check - Cardiac Device 15: [id number] Cardiac Device Interrogation, cardio physiologic monitor ([id number])
== END ==
PROVIDERS: PCP Internal Medicine; Visit Provider Internal Medicine
DX: I50.40 Unspecified combined systolic (congestive) and diastolic (congestive) heart failure (principal)
CPT/HCPCS: 93297

== ENCOUNTER → 2023-07-19 23:59 | Outpatient (BNV) | payer BC, SELFPAY ==
--- NOTE | 2023-07-20 08:52 | MHC.OFFVIS ---
Intake Intake Visit Reasons: Remote HF Monitoring- [employer] Allergies regadenoson [From Lexiscan] Adverse Reaction (Severe, Verified 04/26/23 16:59) seizure type activity PFSH Medical History Benign essential hypertension BPH (benign prostatic hyperplasia) CHF (congestive heart failure) Chronic kidney disease (CKD), stage III (moderate) Chronic right heart failure CKD (chronic kidney disease) Combined systolic and diastolic congestive heart failure Complete heart block Diabetic foot ulcer with osteomyelitis Essential hypertension Heart block History of amputation of toe Hyperlipidemia Hypertension Normally functioning cardiac pacemaker present Obesity (BMI 30-39.9) Pacemaker Proteinuria Pure hypercholesterolemia Type 2 diabetes mellitus Surgical History History of cardiac pacemaker (~04/15/20) Type 2 diabetes mellitus with other diabetic kidney complication Family History Mother CVA (cerebral vascular accident) Diabetes Social History Housing: Apartment Alcohol intake: never Patient Tobacco Use Status: Never used Tobacco e-Cigarette/Vaping Use: Never Used Second Hand Smoke Exposure: Yes service: Yes Current occupational status: employed Cognitive needs: No Hearing needs: No Vision needs: No Office Procedures Cardiac Device Check Cardiac Device Check Details: Date of service- 07/19/2023; based on impedance data and physiological variables, there is no evidence of worsening congestive heart failure. [id number] Cardiac Device Interrogation, cardio physiologic monitor Procedure code (CPT) selection complete Assessment & Plan Assessment & Plan (1) Chronic right heart failure: Code(s): I50.812 - Chronic right heart failure Coding Level of Care Code Procedure Only Diagnoses Chronic right heart failure I50.812 CPT Codes Cardiac Device Check - Cardiac Device 15: [id number] Cardiac Device Interrogation, cardio physiologic monitor ([id number])
== END ==
PROVIDERS: PCP Internal Medicine; Visit Provider Internal Medicine
DX: I50.812 Chronic right heart failure (principal); Z95.0 Presence of cardiac pacemaker
CPT/HCPCS: 93297

== ENCOUNTER → 2023-07-25 23:59 | Outpatient (BNV) | payer BC, SELFPAY ==
--- NOTE | 2023-07-25 12:22 | MHC.OFFVIS ---
Intake Intake Visit Reasons: Remote Device Check- Biotronik Allergies regadenoson [From Lexiscan] Adverse Reaction (Severe, Verified 04/26/23 16:59) seizure type activity [facility] Medical History Benign essential hypertension BPH (benign prostatic hyperplasia) CHF (congestive heart failure) Chronic kidney disease (CKD), stage III (moderate) Chronic right heart failure CKD (chronic kidney disease) Combined systolic and diastolic congestive heart failure Complete heart block Diabetic foot ulcer with osteomyelitis Essential hypertension Heart block History of amputation of toe Hyperlipidemia Hypertension Normally functioning cardiac pacemaker present Obesity (BMI 30-39.9) Pacemaker Proteinuria Pure hypercholesterolemia Type 2 diabetes mellitus Surgical History History of cardiac pacemaker (~04/15/20) Type 2 diabetes mellitus with other diabetic kidney complication Family History Mother CVA (cerebral vascular accident) Diabetes Social History Housing: Apartment Alcohol intake: never Patient Tobacco Use Status: Never used Tobacco e-Cigarette/Vaping Use: Never Used Second Hand Smoke Exposure: Yes service: Yes Current occupational status: employed Cognitive needs: No Hearing needs: No Vision needs: No Office Procedures Cardiac Device Check Cardiac Device Check Details: Date of service- 07/25/2023 ; Battery life 70%; normal lead parameters; AP 20%; KILN FEEDER 100%; no significant arrhythmias. Overall normal device function. [id number] Cardiac Device Interrogation, pacemaker Procedure code (CPT) selection complete Assessment & Plan Assessment & Plan (1) Chronic right heart failure: Code(s): I50.812 - Chronic right heart failure Coding Level of Care Code Procedure Only Diagnoses Chronic right heart failure I50.812 CPT Codes Cardiac Device Check - Cardiac Device 12: [id number] Cardiac Device Interrogation, pacemaker ([id number])
== END ==
PROVIDERS: PCP Internal Medicine; Visit Provider Internal Medicine
DX: I44.2 Atrioventricular block, complete (principal); Z95.0 Presence of cardiac pacemaker
CPT/HCPCS: 93294

== ENCOUNTER 2023-08-02 08:08 | Outpatient (REF) | payer BC, SELFPAY ==
--- NOTE | ~2023-08-02 | XR_ITS ---
EXAMINATION: XR ANKLE, RIGHT CLINICAL INFORMATION: Sprain. Pain COMPARISON: None available. TECHNIQUE: AP, lateral, and mortise views of the right ankle. FINDINGS: Diffuse soft tissue swelling. Chronic areas of bony excrescence noted, along the distal tibia and medial malleolus. Vascular calcifications are observed. 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 The mortise however is intact and I do not see evidence of an acute fracture or dislocation or destructive process. There is chronic deformity to the fifth toe. There is a large plantar spur. XR/XR ankle RT min 3V IMPRESSION: Extensive chronic changes noted.
== END 2023-08-02 08:09 | disposition home or self-care (01) ==
LOC: HO.HMGCX 08:08
PROVIDERS: Absent Provider Internal Medicine; PCP Internal Medicine; Visit Provider Registered Nurse Diabetes Educator
DX: S93.401A Sprain of unspecified ligament of right ankle, initial encounter (principal); E11.29 Type 2 diabetes mellitus with other diabetic kidney complication; N18.32 Chronic kidney disease, stage 3b
CPT/HCPCS: 73610; 99211

== ENCOUNTER 2023-08-02 08:08 | Outpatient (AMB) | payer BC, SELFPAY ==
--- NOTE | 2023-08-02 08:42 | MHC.AMDMED ---
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 Accompanied by: Self / Same As Patient Allergies regadenoson [From Lexiscan] Adverse Reaction (Severe, Verified 04/26/23 16:59) seizure type activity HPI Comprehensive Diabetes Asmnt Most Recent Diabetes Results: Hemoglobin A1c 5.8 % 04/09/20 Microalb/Creat Ratio 72.1 ug/mg cr 04/25/23 Cholesterol 123 mg/dL 04/25/23 HDL Cholesterol 36 mg/dL 04/25/23 Triglycerides 40 mg/dL 04/25/23 Creatinine 1.68 mg/dL (0.5-1.4) H 04/25/23 Blood Urea Nitrogen 27 mg/dL (9-16) H 04/25/23 Sodium 139 mmol/L (135-145) 04/25/23 Potassium 4.1 mmol/L (3.3-5.1) 04/25/23 Chloride 106 mmol/L (96-108) 04/25/23 Carbon Dioxide 24 mmol/L (22-29) 04/25/23 Calcium 9.1 mg/dL (8.4-10.2) 04/25/23 AST 31 U/L (5-37) 04/25/23 ALT 44 U/L (0-40) H 04/25/23 Total Protein 7.3 g/dL (6.5-8.0) 04/25/23 Albumin 3.8 g/dL (3.5-5.0) 04/25/23 [facility] Medical History Benign essential hypertension BPH (benign prostatic hyperplasia) CHF (congestive heart failure) Chronic kidney disease (CKD), stage III (moderate) Chronic right heart failure CKD (chronic kidney disease) Combined systolic and diastolic congestive heart failure Complete heart block Diabetic foot ulcer with osteomyelitis Essential hypertension Heart block History of amputation of toe Hyperlipidemia Hypertension Normally functioning cardiac pacemaker present Obesity (BMI 30-39.9) Pacemaker Proteinuria Pure hypercholesterolemia Type 2 diabetes mellitus Surgical History History of cardiac pacemaker (~04/15/20) Type 2 diabetes mellitus with other diabetic kidney complication Family History Mother CVA (cerebral vascular accident) Diabetes Social History Housing: Apartment Alcohol intake: never Patient Tobacco Use Status: Never used Tobacco e-Cigarette/Vaping Use: Never Used Second Hand Smoke Exposure: Yes service: Yes Current occupational status: employed Cognitive needs: No Hearing needs: No Vision needs: No Assessment & Plan Assessment & Plan (1) Chronic kidney disease (CKD), stage III (moderate): Code(s): N18.30 - Chronic kidney disease, stage 3 unspecified Qualifiers: Chronic kidney disease stage 3 subtype: stage 3b (GFR 30-44) Qualified Code(s): N18.32 - Chronic kidney disease, stage 3b Plan: Learning objectives: The patient was provided with verbal and written education on the following topics as outlined below. Assess patient education level/literacy/barriers Patient questions/concerns, patient reports his glucometer has not been working last glucose levels in glucometer from 07/07/2023 reading of 196 mg/dL. Switched batteries in glucometer, glucometer appears to be functioning at this time. Recommended to patient if glucometer is not working to contact PCP for new prescription Patient denies symptoms of hypoglycemia The patient met all learning objectives and was able to verbalize understanding and provide teach back of education topics discussed . The patient was provided with the opportunity to ask questions and all questions were answered. Topics covered in today?s session included: Medications (If applicable) ? Name of medication? Dosing/administration instructions? Mechanism of action? Potential side effects? Potential adverse reaction and appropriate treatment? Review onset, peak, duration Assess for concerns re: insurance coverage, cost, barriers to compliance Insulin/Injectables (If applicable) ? Storage/care of insulin? Injection sites? Site rotation? Onset, peak, duration ? Drawing up insulin? Injecting insulin/other injectables? Sharps disposal Continuous blood glucose monitoring (if applicable) Hypoglycemia and Hyperglycemia ? Signs and symptoms? Causes? Treatment? Preventing hypoglycemia? When to seek medical attention ?Blood glucose targets and how you feel when your blood glucose is in and out of your target ranges. ?Monitoring and knowing your A1C. ?What can make blood glucose go up and down and preventing high and low blood glucose. ?Review of blood sugar targets in expected goal range and outside of expected goal range. ?Problem solving and preventing hyper/hypoglycemia. ?Sick day management of diabetes. ?Using blood sugar results in decision making process in managing diabetes. ?Patient was receptive to information provided and participated in the discussion. Asked?appropriate questions and demonstrated good understanding of the topics discussed.? ? Educational Materials: The patient was provided with the following written educational materials: Target Goal handout Smart Goal Assessment: Patient will test glucose at very times of the day, especially when experiencing symptoms of hypoglycemia Pt met goal less than 25% New Smart Goal: Patient will start testing glucose levels once a day Patient Response to instructions: Comprehension of Instructions: fair Readiness to make changes:? Contemplation How confident they feel about making changes:fair (2) Type 2 diabetes mellitus with other diabetic kidney complication: Code(s): E11.29 - Type 2 diabetes mellitus with other diabetic kidney complication Plan: Diabetes self-management education and support participation record Assessment/scale: 1= needs instructed? 2= needs review? 3= comprehend keep point? 4= demonstrates understanding/ competent? NC= Not Covered Topics Learning Objective: Initial visit Initial or post srvc Initial or post srvc Initial or post srvc Initial or post srvc Initial or post srvc Post srvc Comments Pre Edu-assessment/plan Outcome or reassess Outcome or reassess Outcome or reassess Outcome or reassess Outcome or reassess Outcome or reassess Diabetes pathophysiology 2 3 Healthy eating 2 Being active 2 Taking medication 2 Monitoring glucose 2 3 Acute complication 2 Chronic complicated 2 3 Lifestyle and healthy coping 1 Diabetes distress in support 1 ?Diabetes pathophysiology: ?Defined diabetes med identify own type of diabetes; list 3 options for treating diabetes Healthy eating: ?Described effect of type, amount and ?timing of food on blood glucose; list 3 methods for planning meal Being active: ?State effect of exercise on blood glucose level Taking medication: ?State effect of diabetes medications on diabetes; name diabetes medications taking, action and side effects Monitoring glucose: ?Identify recommended blood glucose targets and personal target Acute complication: ?List symptoms and treatment of hyper and hypoglycemia, DKA, sick day guidelines and guidelines for severe weather or situations of crisis and diabetes supply manage Chronic complication: ?To find the relationship of blood glucose levels to long-term complications of diabetes in screening and preventative measures Lifestyle and healthy coping: ?Described lifestyle and healthy coping strategies to rule out diabetes self-management Diabetes to stress and support: ?Recognize Diabetes to stress and be able to identified support options Coding Level of Care Code Est Pt Level 1 (52930) Diagnoses Stage 3b chronic kidney disease N18.32 Chronic kidney disease stage 3 subtype: stage 3b (GFR 30-44) Type 2 diabetes mellitus with other diabetic kidney complication E11.29
== END 2023-08-02 08:50 | disposition home or self-care (01) ==
PROVIDERS: PCP Internal Medicine; Visit Provider Registered Nurse Diabetes Educator
DX: N18.32 Chronic kidney disease, stage 3b (principal); E11.29 Type 2 diabetes mellitus with other diabetic kidney complication

== ENCOUNTER 2023-08-02 14:08 | Outpatient (AMB) | payer BC, SELFPAY ==
--- NOTE | 2023-08-02 16:21 | AM.OFFWIN_ITS ---
Intake Vital Signs 08/02/23 16:22 Height 5 ft 9 in Weight 254 lb BMI 37.5 BP 128/78 Blood Pressure Location Rt brachial Position Sitting Pulse 77 Pulse Source Pulse Oximeter Temp 97.8 F Temp Source Temporal Artery Scan Pulse Oximetry (%) 98 Intake Visit Reasons: EP, right ankle swelling Intake Note: pt is here for c/o right ankle swelling due to twisting it last week Patient Tobacco Use Status: Never used Tobacco Allergies regadenoson [From Lexiscan] Adverse Reaction (Severe, Verified 08/12/23 13:51) seizure type activity Medication List - Last Reconciled 08/12/23 by Daniel Najera MD alcohol swabs (BD Alcohol Swabs) 1 pad topical QID amlodipine 10 mg PO DAILY 90 days atorvastatin 20 mg PO BEDTIME 90 days blood sugar diagnostic (iContainersuch Verio test strips) 1 strip miscellaneous TID 30 days blood sugar diagnostic (iContainersuch Ultra Test strips) As directed -tests 4 X/day blood-glucose meter (Wavecraft Ultra2 Meter) As directed tests 4 X/day bumetanide 2 mg PO BID 30 days cholecalciferol (vitamin D3) 50 mcg PO DAILY 90 days dulaglutide (Trulicity) 0.75 mg (0.5 mL) subcut QWEEK flash glucose scanning reader (CazoodleStyle Tish 2 [place]) As directed flash glucose sensor (FreeStyle Tish 2 Sensor kit) As directed change every 14 days hydralazine 100 mg PO TID 90 days insulin glargine (Basaglar KwikPen U-100 Insulin) 10 units (0.1 mL) subcut QPM 30 days isosorbide mononitrate ER 60 mg PO DAILY 90 days labetalol 100 mg PO BID lancets As directed lancets (iContainersuch UltraSoft Lancets) As directed-tests 4 X/day pen needle, diabetic As directed polymyxin B sulf-trimethoprim 10,000 unit- 1 mg/mL 1 drp ophthalmic (eye) Q4H 7 days spironolactone 50 mg (2 x 25 mg) PO QAM tamsulosin 0.4 mg PO DAILY 90 days Do you need a note to return to daycare/school/sports/work: Yes HPI EP, right ankle swelling HPI Details 58 yr male presents to the office for a sick visit. Pt injured his right ankle a few days ago and would like an evaluation. While walking he twisted his ankle. Able to walk, albeit with a limp. [facility] Medical History Benign essential hypertension BPH (benign prostatic hyperplasia) CHF (congestive heart failure) Chronic kidney disease (CKD), stage III (moderate) Chronic right heart failure CKD (chronic kidney disease) Combined systolic and diastolic congestive heart failure Complete heart block Diabetic foot ulcer with osteomyelitis Essential hypertension Heart block History of amputation of toe Hyperlipidemia Hypertension Normally functioning cardiac pacemaker present Obesity (BMI 30-39.9) Pacemaker Proteinuria Pure hypercholesterolemia Type 2 diabetes mellitus Surgical History History of cardiac pacemaker (~04/15/20) Type 2 diabetes mellitus with other diabetic kidney complication Family History Mother CVA (cerebral vascular accident) Diabetes Housing: Apartment Alcohol intake: never Patient Tobacco Use Status: Never used Tobacco e-Cigarette/Vaping Use: Never Used Second Hand Smoke Exposure: Yes service: Yes Current occupational status: employed Cognitive needs: No Hearing needs: No Vision needs: No Physical Exam Vital Signs: Last Vital Signs Temp 97.8 F 08/02/23 16:22 Pulse 77 08/02/23 16:22 BP 128/78 08/02/23 16:22 Pulse Ox 98 08/02/23 16:22 BMI result Body Mass Index 37.5 Extrem Other: Right ankle: Minimal swelling, pain on inversion and eversion. Assessment & Plan Assessment & Plan (1) Sprain of right ankle: Code(s): S93.401A - Sprain of unspecified ligament of right ankle, initial encounter Plan: X rays images were revd. Chronic OA changes seen. Pt advised rest and NSAIDS. Orders: Orders XR ankle RT min 3V 08/02/23 S93.401A - Sprain of unspecified ligament of right ankle, initial encounter Coding Level of Care Code Est Pt Level 4 (83385) Diagnoses Sprain of right ankle S93.401A
[2023-08-02 16:22] VITALS: BP 128/78; PULSE 77; TEMP 36.6; O2SAT 98; BMI 37.5
== END 2023-08-02 17:00 | disposition home or self-care (01) ==
PROVIDERS: PCP Internal Medicine; Visit Provider Internal Medicine
DX: S93.401A Sprain of unspecified ligament of right ankle, initial encounter (principal)
CPT/HCPCS: 99214

== ENCOUNTER → 2023-08-18 23:59 | Outpatient (BNV) | payer BC, SELFPAY ==
--- NOTE | 2023-08-24 18:38 | MHC.OFFVIS ---
Intake Intake Visit Reasons: Remote HF Monitoring- Biotronik Allergies regadenoson [From Lexiscan] Adverse Reaction (Severe, Verified 08/12/23 13:51) seizure type activity PFSH Medical History Benign essential hypertension BPH (benign prostatic hyperplasia) CHF (congestive heart failure) Chronic kidney disease (CKD), stage III (moderate) Chronic right heart failure CKD (chronic kidney disease) Combined systolic and diastolic congestive heart failure Complete heart block Diabetic foot ulcer with osteomyelitis Essential hypertension Heart block History of amputation of toe Hyperlipidemia Hypertension Normally functioning cardiac pacemaker present Obesity (BMI 30-39.9) Pacemaker Proteinuria Pure hypercholesterolemia Type 2 diabetes mellitus Surgical History History of cardiac pacemaker (~04/15/20) Type 2 diabetes mellitus with other diabetic kidney complication Family History Mother CVA (cerebral vascular accident) Diabetes Social History Housing: Apartment Alcohol intake: never Patient Tobacco Use Status: Never used Tobacco e-Cigarette/Vaping Use: Never Used Second Hand Smoke Exposure: Yes service: Yes Current occupational status: employed Cognitive needs: No Hearing needs: No Vision needs: No Office Procedures Cardiac Device Check Cardiac Device Check Details: Date of service- 08/18/2023; based on impedance data and physiological variables, there is no evidence of worsening congestive heart failure. Patient activity 17% of day. Diminished HR variability. [id number] Cardiac Device Interrogation, cardio physiologic monitor Procedure code (CPT) selection complete Assessment & Plan Assessment & Plan (1) Chronic right heart failure: Code(s): I50.812 - Chronic right heart failure Plan x Coding Level of Care Code Procedure Only Diagnoses Chronic right heart failure I50.812 CPT Codes Cardiac Device Check - Cardiac Device 15: [id number] Cardiac Device Interrogation, cardio physiologic monitor ([id number])
== END ==
PROVIDERS: PCP Internal Medicine; Visit Provider Internal Medicine
DX: I50.812 Chronic right heart failure (principal)
CPT/HCPCS: 93297

== ENCOUNTER 2023-08-24 10:57 | Outpatient (REF) | payer BC, SELFPAY ==
[2023-08-24 11:39] LABS: MANUAL DIFF FLAG NO
[2023-08-24 12:01] LABS: Appearance Urine Clear; Color Urine Yellow; Glucose Urine UA Negative (Negative); Leukocyte Esterase Urine Negative (Negative); Nitrite Urine Negative (Negative); Specific Gravity - Urine 1.015 (1.005-1.025); Urine Blood Negative (Negative); Urine Ketones Negative (Negative); Urine Protein Negative (Neg-Trace)
[2023-08-24 12:07] LABS: Basophils Absolute Auto 0.1 X10*3/uL (0.0-0.2); Basophils Percent Auto 0.7 % (0-2); Eosinophils Absolute Auto 0.1 X10*3/uL (0.0-0.4); Eosinophils Percent Auto 1.3 % (0-4); Hematocrit 33.6 % (42.0-52.0); Hemoglobin 10.1 g/dl (14.0-18.0); Imm Gran Abs Auto 0.02 X10*3/uL (0.00-0.03); Imm Gran Pct Auto 0.3 % (0.0-0.4); Lymphocytes Absolute Auto 1.3 X10*3/uL (1.2-4.9); Lymphocytes Percent Auto 18.4 % (20-40); Mean Corpuscular HGB Conc 30.1 g/dl (31.0-36.0); Mean Corpuscular Hemoglobin 24.8 pg (27.0-33.0); Mean Corpuscular Volume 82.4 fL (80.0-98.0); Mean Platelet Volume 10.5 fL (9.4-12.4); Monocytes Absolute Auto 0.7 X10*3/uL (0.1-1.2); Monocytes Percent Auto 9.8 % (2-11); Neutrophils Absolute Auto 4.7 x10*3/uL (2.0-8.3); Neutrophils Percent Auto 69.5 % (45-73); Platelet Count 278 X10*3/uL (160-400); Red Blood Count 4.08 X10*6/uL (4.60-5.80); Red Cell Distribution Width 13.3 % (11.0-16.0); White Blood Count 6.8 X10*3/uL (4.8-10.8)
[2023-08-24 12:15] LABS: Estimated Average Glucose 166 mg/dL; Hemoglobin A1c % 7.4 % (<6.0)
[2023-08-24 12:24] LABS: Creatinine Urine 137.06 mg/dL; Microalbum/Creatinine Ratio Ur 40.1 ug/mg cr (<30)
[2023-08-24 12:31] LABS: B Type Natriuretic Peptide 56 pg/mL (<100)
[2023-08-24 12:42] LABS: Alanine Aminotransferase 16 U/L (0-40); Albumin Level 3.7 g/dL (3.5-5.0); Alkaline Phosphatase 83 U/L (39-117); Anion Gap 11 (12-20); Aspartate Amino Transferase 17 U/L (5-37); Bilirubin Total 0.5 mg/dL (0.0-1.0); Blood Urea Nitrogen 30 mg/dL (9-16); Calcium 9.2 mg/dL (8.4-10.2); Carbon Dioxide 28 mmol/L (22-29); Chloride 103 mmol/L (96-108); Cholesterol 96 mg/dL (<200); Estimated Glomerular Filt Rate 39; Glucose Fasting 122 mg/dL (60-99); HDL Cholesterol 29 mg/dL (>40); LDL Cholesterol Calculated 58 mg/dL (<100); Potassium 4.3 mmol/L (3.3-5.1); Sodium 138 mmol/L (135-145); Total Protein 7.6 g/dL (6.5-8.0); Triglycerides 46 mg/dL (<150)
[2023-08-24 12:47] LABS: TSH reflex Free T4 1.15 uIU/mL (0.32-4.0); Vitamin D 25-OH Total 29.7 ng/mL (>30)
[2023-08-24 12:59] LABS: Folate 5.6 ng/mL (> or = 4.0); Vitamin B12 357 pg/mL (200-900)
== END 2023-08-24 10:58 | disposition home or self-care (01) ==
LOC: HO.LAB 10:57
PROVIDERS: PCP Internal Medicine; Visit Provider Internal Medicine
DX: E11.9 Type 2 diabetes mellitus without complications (principal); I11.0 Hypertensive heart disease with heart failure; I50.40 Unspecified combined systolic (congestive) and diastolic (congestive) heart failure; E78.00 Pure hypercholesterolemia, unspecified; E53.8 Deficiency of other specified B group vitamins; E55.9 Vitamin D deficiency, unspecified; R30.0 Dysuria
CPT/HCPCS: 36415; 80053; 80061; 81003; 82043; 82306; 82570; 82607; 82746; 83036; 83880; 84443; 85025

== ENCOUNTER 2023-09-07 15:58 | Outpatient (AMB) | payer BC, SELFPAY ==
[2023-09-07 16:03] VITALS: BP 132/96; PULSE 93; O2SAT 98; BMI 37.5
--- NOTE | 2023-09-07 16:03 | A.OFFPC_ITS ---
Vital Signs 09/07/23 16:03 Height 5 ft 9 in Weight 254 lb 4 oz BMI 37.5 BP 132/96 H Blood Pressure Location Lt brachial Position Sitting Pulse 93 Pulse Source Pulse Oximeter Pulse Oximetry (%) 98 Oxygen Delivery Method Room Air Intake Visit Reasons: DM, CKD, hyperlipidemia, HTN Tailercpa Required: No Accompanied by: Self / Same As Patient Allergies regadenoson [From Lexiscan] Adverse Reaction (Severe, Verified 09/08/23 03:02) seizure type activity Medication List - Last Reconciled 09/08/23 by Ronnell Glass MD alcohol swabs (BD Alcohol Swabs) 1 pad topical QID amlodipine 10 mg PO DAILY 90 days atorvastatin 20 mg PO BEDTIME 90 days blood sugar diagnostic ([employer] Verio test strips) 1 strip miscellaneous TID 30 days blood sugar diagnostic ([employer] Ultra Test strips) As directed -tests 4 X/day blood-glucose meter ([employer] Mobile Ultra2 Meter) As directed tests 4 X/day bumetanide 2 mg PO BID 30 days cholecalciferol (vitamin D3) 50 mcg PO DAILY 90 days dulaglutide (Trulicity) 0.75 mg (0.5 mL) subcut QWEEK flash glucose scanning reader (StoroneStyle Tish 2 [place]) As directed flash glucose sensor (FreeStyle Tish 2 Sensor kit) As directed change every 14 days hydralazine 100 mg PO TID 90 days insulin glargine (Basaglar KwikPen U-100 Insulin) 10 units (0.1 mL) subcut QPM 30 days isosorbide mononitrate ER 60 mg PO DAILY 90 days labetalol 100 mg PO BID lancets As directed lancets (A[employer] Mobile UltraSoft Lancets) As directed-tests 4 X/day pen needle, diabetic As directed spironolactone 50 mg (2 x 25 mg) PO QAM tamsulosin 0.4 mg PO DAILY 90 days Tobacco use date assessed: 09/07/23 Dental Screening Dental Screen Date: 09/07/23 Did you have a dental visit in the last 12 months?: No Did you have a dental problem in the last 6 months where you did not have access to dental care?: No Was dental information given to patient?: No HPI DM, CKD, hyperlipidemia, HTN HPI Details Patient comes in today for his follow up visit Relates that he sprained his right ankle over a month ago and it is still swollen at present He went to the walk-in clinic last month a week after he sprained his ankle and had x-rays done, which came out negative for fractures States that it has been over a month now since he has been his right ankle and it is still swollen at present although he feels that the swelling has subsided somewhat recently Has also noticed some swelling of his right leg and is wondering if this is normal for his injury He is also wondering if he can wear an ankle brace and if that will help with his ankle swelling or not States that he feels okay otherwise He denies any headaches or dizziness Denies any chest pains, no shortness of breath No nausea/ vomiting, no abdominal pain No change in bowel habits noted Needs his Vitamin D Rx refilled Had his follow-up labs done a couple of weeks ago - to discuss his results [facility] Medical History (Updated 09/08/23 @ 06:08 by Ronnell Glass MD) Vitamin D deficiency History of amputation of toe Obesity (BMI 30-39.9) Pure hypercholesterolemia Benign essential hypertension Combined systolic and diastolic congestive heart failure Chronic kidney disease (CKD), stage III (moderate) Diabetic foot ulcer with osteomyelitis Complete heart block CHF (congestive heart failure) BPH (benign prostatic hyperplasia) Proteinuria Hyperlipidemia Essential hypertension Normally functioning cardiac pacemaker present Chronic right heart failure Heart block CKD (chronic kidney disease) Hypertension Type 2 diabetes mellitus Pacemaker Surgical History Type 2 diabetes mellitus with other diabetic kidney complication History of cardiac pacemaker (~04/15/20) Family History Mother CVA (cerebral vascular accident) Diabetes Social History Housing: Apartment Alcohol intake: never Patient Tobacco Use Status: Never used Tobacco e-Cigarette/Vaping Use: Never Used Second Hand Smoke Exposure: Yes service: Yes Current occupational status: employed Cognitive needs: No Hearing needs: No Vision needs: No Questionnaire PHQ-9 Over the last 2 weeks, how often have you been bothered by any of the following problems? 1. Little interest or pleasure in doing things: not at all 2. Feeling down, depressed, or hopeless: not at all 3. Trouble falling or staying asleep, or sleeping too much: not at all 4. Feeling tired or having little energy: not at all 5. Poor appetite or overeating: not at all 6. Feeling bad about yourself - or that you are a failure or have let yourself or your family down: not at all 7. Trouble concentrating on things, such as reading the newspaper or watching television: not at all 8. Moving or speaking so slowly that other people could have noticed. Or the opposite - being so fidgety or restless that you have been moving around a lot more than usual: not at all 9. Thoughts that you would be better off or of hurting yourself in some way: not at all Total score: 0 Depression Screening Interpretation: Negative Depression Screening Done: Yes [id number] - PHQ-9 Billing: Yes Source: Developed by Drs. Guille Fam, Simran Mcginnis, Sohan Cardenas and colleagues, with an educational fausto from [employer]. Thrive Questionnaire Date Thrive assessed: 09/07/23 I am a: Patient What is your living situation today?: I have a steady place to live Within the past 12 months, did the food you bought not last and you didn't have the money to get more?: Never true Within the past 12 months, did you worry whether your food would run out before you got money to buy more?: Never true Do you have trouble paying for medicines?: No Do you have trouble getting transportation to medical appointments?: No Do you have trouble paying your heating and electricity bill?: No Do you have trouble taking care of your child, family member or friend?: No Do you have trouble with day-to-day activities such as bathing, preparing meals, shopping, managing finances, etc.?: No Are you currently unemployed and looking for a job?: No Are you interested in more education?: No Please select the resources that you would like help with: None Currently or been in a relationship where the following occur: no concerns reported AUDIT C Alcohol Use Questionnaire (AUDIT-C) 1. How often do you have a drink containing alcohol?: Never 3. How often do you have six or more drinks on one occasion?: Never Total Score: 0 Score Reviewed/Action Taken: Yes NEETA-7 AMB Questionnaire NEETA-7 Date NEETA - 7 assessed: 09/07/23 Feeling nervous, anxious, or on edge: 0 = Not at all Not being able to stop or control worryin = Not at all Worrying too much about different things: 0 = Not at all Trouble relaxin = Not at all Being so restless that it is hard to sit still: 0 = Not at all Becoming easily annoyed or irritable: 0 = Not at all Feeling afraid as if something awful might happen: 0 = Not at all Total NEETA-7 score (0-4 normal; 5-9 mild; 10-14 moderate; 15-21 severe): 0 Source: Developed by Drs. Guille Fam, Simran Mcginnis, Sohan Cardenas and colleagues, with an educational fausto from [employer]. NEETA-7 Assessment Billing NEETA-7 Assessment Tool: NEETA-7 Assessment [id number] Review of Systems Const Denies chills, Denies fatigue, Denies fever(s) and Denies headache(s) ENT Denies dysphagia, Denies dizziness, Denies otalgia, Denies headache(s), Denies odynophagia and Denies sore throat Card Denies chest pain, Denies palpitations and Denies dyspnea Resp Denies cough and Denies dyspnea GI Denies abdominal pain, Denies constipation, Denies dysphagia, Denies heartburn, Denies diarrhea, Denies nausea, Denies odynophagia and Denies vomiting Denies dysuria, Denies nocturia and Denies urinary frequency Musc Reports arthralgias (right ankle) and Reports joint swelling (right ankle) Skin/Breast Denies lesions and Denies rash Neuro Denies dizziness and Denies headache(s) Endo Denies fatigue and Denies palpitations Physical exam (Primary Care) Vital Signs: Last Vital Signs Pulse 93 09/07/23 16:03 BP 132/96 H 09/07/23 16:03 Pulse Ox 98 09/07/23 16:03 Oxygen Delivery Method Room Air 09/07/23 16:03 BMI result Body Mass Index 37.5 Tobacco/Smoking Status: Tobacco use Status Tobacco use date assessed 09/07/23 09/07/23 16:10 Patient Tobacco Use Status Never used Tobacco 09/07/23 16:10 e-Cigarette/Vaping Use Never Used 09/07/23 16:10 PHQ-9: PHQ-9 Score PHQ-9: Total score 0 09/07/23 16:46 Depression Screening Interpretation: Negative Thrive Assessment: Date of Thrive Assessment Date Thrive assessed 09/07/23 09/07/23 16:10 Currently or been in a relationship where the following occur: no concerns reported Const General: no acute distress and alert HENMT Ears: TM's normal bilaterally and EAC's normal Throat: Yes posterior oropharynx normal and Yes tonsils normal (no TP congestion) Neck Neck: Yes no lymphadenopathy and Yes supple Resp Auscultation: clear to auscultation bilaterally, no rales and no wheezes Cardio Rate: regular rate Rhythm: regular rhythm Heart sounds: no murmurs GI Palpation (GI): Soft to palpation and nontender Auscultation: normal bowel sounds Skin General skin exam: no rashes or lesions noted Extrem Other: 3+ edema noted over the right lower extremity - edema is non-pitting Results Reviewed Results Reviewed: Laboratory Tests 08/24/23 08/24/23 08/24/23 11:13 11:38 11:38 WBC 6.8 Hgb 10.1 L Hct 33.6 L Plt Count 278 D Sodium 138 Potassium 4.3 Creatinine 1.81 H Estimated GFR 39 Fasting Glucose 122 H Hemoglobin A1c % 7.4 H Calcium 9.2 AST 17 ALT 16 B-Natriuretic Peptide 56 Triglycerides 46 Cholesterol 96 LDL Cholesterol, Calc 58 HDL Cholesterol 29 L Vitamin B12 357 25-OH Vitamin D Total 29.7 L TSH 1.15 Ur Specific [place] 1.015 Urine Protein Negative Urine Glucose (UA) Negative Urine Blood Negative Microalb/Creat Ratio 40.1 H Assessment and Plan Assessment & Plan (1) Right leg swelling: Code(s): M79.89 - Other specified soft tissue disorders Plan: Advised patient that his right lower leg swelling is much more significant than one would expect from just a simple ankle sprain Suspect that he may have DVT of the right leg based on the degree of edema present in his leg Will send him for a venous doppler of the right lower extremity IBRAHIMA to r/o DVT (2) Right ankle sprain: Code(s): S93.401A - Sprain of unspecified ligament of right ankle, initial encounter Qualifiers: Encounter type: sequela Involved ligament of ankle: unspecified ligament Qualified Code(s): S93.401S - Sprain of unspecified ligament of right ankle, sequela Plan: Patient sprained his right ankle over a month ago now and is still experiencing increased swelling in his ankle, as well as some pain especially with weight- bearing X-rays of the ankle done last month revealed (+) soft tissue swelling as well as some chronic changes but no fracture was noted Will try to determine first if he currently has a DVT in his right leg and if negative, will consider referring patient to orthopedics for further evaluation and management of his right ankle issues (3) Type 2 diabetes mellitus with other diabetic kidney complication: Code(s): E11.29 - Type 2 diabetes mellitus with other diabetic kidney complication Plan: HgbA1c was at 7.5% on his labs done a couple of weeks ago (was at 6.5% a few months ago) - goal is <7.0% Reinforced diabetic diet Continue Basaglar 10 units Q HS and Trulicity 0.75 mg SQ once a week for now Advised that he needs to get his diabetes back under control or we will need to readjust his meds Metformin was discontinued months ago due to his declining renal function - serum creatinine was at 1.92 back in September 2022 but has since improved slightly Was seen by Dr. Jacobson again for follow up recently and was reportedly advised to just see his PCP regularly now since his diabetes is under good control Follow up with model maker apprentice as scheduled for diet counseling and diabetic teaching (4) Chronic kidney disease (CKD), stage III (moderate): Code(s): N18.30 - Chronic kidney disease, stage 3 unspecified Qualifiers: Chronic kidney disease stage 3 subtype: stage 3b (GFR 30-44) Qualified Code(s): N18.32 - Chronic kidney disease, stage 3b Plan: Will continue to monitor his renal function and GFR closely - his renal function appears to have stabilized although his serum creatinine has most recently increased from 1.68 to 1.81 when checked a couple of weeks ago, likely in relation to his recent decline in his glycemic control He was referred to nephrology previously for further evaluation and management a few months ago but it looks like patient never got an appointment scheduled with nephrology Will try referring him again to nephrology (5) Benign essential hypertension: Code(s): I10 - Essential (primary) hypertension Plan: Reinforced low sodium diet - goal is systolic BP of at least 130 mm or less Continue Amlodipine 10 mg QD, Hydralazine 50 mg 2 tablets 3 times a day, Spironolactone 50 mg QD and Labetalol 100 mg BID (6) Combined systolic and diastolic congestive heart failure: Code(s): I50.40 - Unspecified combined systolic (congestive) and diastolic (congestive) heart failure Qualifiers: Heart failure chronicity: unspecified Qualified Code(s): I50.40 - Unspecified combined systolic (congestive) and diastolic (congestive) heart failure Plan: Currently appears compensated Reinforced fluid restriction Continue Isosorbide Mononitrate ER 60 mg QD and Bumetanide 2 mg BID Follow up with cardiology as scheduled (7) Complete heart block: Comment: S/P pacemaker insertion on 04/15/2020 Code(s): I44.2 - Atrioventricular block, complete Plan: S/P pacemaker insertion on 04/15/2020 and he has been doing well since Follow up with cardiology as scheduled (8) Pure hypercholesterolemia: Code(s): E78.00 - Pure hypercholesterolemia, unspecified Plan: Results of his labs done a couiple of weeks ago reviewed and discussed with patient Reinforced low cholesterol diet Continue Atorvastatin 20 mg QD Will recheck his labs and fasting lipids again in 4 months for follow up (9) Vitamin D deficiency: Code(s): E55.9 - Vitamin D deficiency, unspecified Plan: Improving - continue Vitamin D3 2000 units QD (Rx refilled) (10) Anemia: Code(s): D64.9 - Anemia, unspecified Qualifiers: Anemia type: due to chronic kidney disease Chronic kidney disease stage: stage 3 (moderate) Chronic kidney disease stage 3 subtype: stage 3b (GFR 30-44) Qualified Code(s): N18.32 - Chronic kidney disease, stage 3b; D63.1 - Anemia in chronic kidney disease Plan: Is most likely due to chronic disease, including CKD His H/H was stable for a while but has dropped significantly on his recent labs - H/H are now at 10.1/33.6 Patient was taking some iron supplements in the past but stopped taking it a while ago due to increasing constipation Will refer him to hematology for further evaluation and management (11) Obesity (BMI 30-39.9): Code(s): E66.9 - Obesity, unspecified Plan: Reinforced diet/exercise as tolerated/lose weight Plan Follow up in 4 months Orders: Orders Complete Blood Count Auto Diff 4 Months I10 - Essential (primary) hypertension Lipid Panel 4 Months E78.00 - Pure hypercholesterolemia, unspecified TSH reflex Free T4 4 Months E78.00 - Pure hypercholesterolemia, unspecified Microalbumin, Random (w Creat) 4 Months E11.9 - Type 2 diabetes mellitus without complications Hemoglobin A1c 4 Months E11.9 - Type 2 diabetes mellitus without complications Vitamin D 25-OH Total 4 Months E55.9 - Vitamin D deficiency, unspecified IRON PROFILE 4 Months D50.9 - Iron deficiency anemia, unspecified US venous duplex LE RT 09/07/23 M79.89 - Other specified soft tissue disorders Comprehensive [place]. Panel Fast 4 Months E78.00 - Pure hypercholesterolemia, unspecified UA CC w/rflx Micro + Cult 4 Months R30.0 - Dysuria Vitamin B12 and Folate 4 Months E53.8 - Deficiency of other specified B group vitamins Referrals Hematology & Oncology Referral D64.9 - Anemia, unspecified Nephrology Referral E11.29 - Type 2 diabetes mellitus with other diabetic kidney complication, N18.30 - Chronic kidney disease, stage 3 unspecified Medications: Refilled cholecalciferol (vitamin D3) 50 mcg PO DAILY 90 days 90 caps 3RF E55.9 - Vitamin D deficiency, unspecified Coding Level of Care Code Est Pt Level 4 (80151) Diagnoses Right leg swelling M79.89 Sprain of right ankle, unspecified ligament, sequela S93.401S Encounter type: sequela Involved ligament of ankle: unspecified ligament Type 2 diabetes mellitus with other diabetic kidney complication E11.29 Stage 3b chronic kidney disease N18.32 Chronic kidney disease stage 3 subtype: stage 3b (GFR 30-44) Benign essential hypertension I10 Combined systolic and diastolic congestive heart failure, unspecified HF chronicity I50.40 Heart failure chronicity: unspecified Complete heart block I44.2 Pure hypercholesterolemia E78.00 Vitamin D deficiency E55.9 Anemia due to stage 3b chronic kidney disease N18.32; D63.1 Anemia type: due to chronic kidney disease Chronic kidney disease stage: stage 3 (moderate) Chronic kidney disease stage 3 subtype: stage 3b (GFR 30-44) Obesity (BMI 30-39.9) E66.9 Additional Codes NEETA-7 Assessment Billing - NEETA-7 Assessment Tool: NEETA-7 Assessment [id number] ([id number])
== END 2023-09-07 16:50 | disposition home or self-care (01) ==
LOC: HO.HMGH 15:58
PROVIDERS: PCP Internal Medicine; Visit Provider Internal Medicine
DX: E11.22 Type 2 diabetes mellitus with diabetic chronic kidney disease (principal); I13.0 Hypertensive heart and chronic kidney disease with heart failure and stage 1 through stage 4 chronic kidney disease, or unspecified chronic kidney disease; N18.32 Chronic kidney disease, stage 3b; I50.40 Unspecified combined systolic (congestive) and diastolic (congestive) heart failure; I44.2 Atrioventricular block, complete; E78.00 Pure hypercholesterolemia, unspecified; E55.9 Vitamin D deficiency, unspecified; D63.1 Anemia in chronic kidney disease; E66.9 Obesity, unspecified
CPT/HCPCS: 99214

== ENCOUNTER 2023-09-15 14:05 | Outpatient (REF) | payer BC, SELFPAY ==
--- NOTE | ~2023-09-15 | US_ITS ---
EXAMINATION: US VENOUS ULTRASOUND WITH DOPPLER LOWER EXTREMITY, RIGHT CLINICAL INFORMATION: Right leg pain COMPARISON: None available. TECHNIQUE: Ultrasound of the deep veins is performed from the hip to the calf with compression sonography and color and pulse Doppler assessment. Spectral analysis with color-flow imaging is performed. FINDINGS: There is normal venous compression and respiratory variation. The visualized common femoral vein, superficial femoral vein, profunda femoral vein, popliteal vein, and the posterior tibial and peroneal veins show no evidence of deep venous thrombosis. Edema is noted in the right lower leg and ankle. US/US venous duplex LE RT IMPRESSION: No DVT demonstrated in the right lower extremity.
== END 2023-09-15 14:06 | disposition home or self-care (01) ==
LOC: HO.HMGCX 14:05
PROVIDERS: PCP Internal Medicine; Visit Provider Internal Medicine
DX: M79.604 Pain in right leg (principal); R60.0 Localized edema
CPT/HCPCS: 93971

== ENCOUNTER → 2023-09-21 23:59 | Outpatient (BNV) | payer BC, SELFPAY ==
--- NOTE | 2023-09-27 19:25 | A.OFFVIS_ITS ---
Intake Intake Visit Reasons: Remote HF Monitoring- Biotronik Allergies regadenoson [From Lexiscan] Adverse Reaction (Severe, Verified 09/22/23 15:57) seizure type activity [facility] Medical History (Updated 09/08/23 @ 08:12 by Tuyet Oneil NP-C) Vitamin D deficiency History of amputation of toe Obesity (BMI 30-39.9) Pure hypercholesterolemia Benign essential hypertension Combined systolic and diastolic congestive heart failure Chronic kidney disease (CKD), stage III (moderate) Diabetic foot ulcer with osteomyelitis Complete heart block CHF (congestive heart failure) BPH (benign prostatic hyperplasia) Proteinuria Hyperlipidemia Essential hypertension Normally functioning cardiac pacemaker present Chronic right heart failure Heart block CKD (chronic kidney disease) Hypertension Type 2 diabetes mellitus Pacemaker Surgical History Type 2 diabetes mellitus with other diabetic kidney complication History of cardiac pacemaker (~04/15/20) Family History Mother CVA (cerebral vascular accident) Diabetes Social History Housing: Apartment Alcohol intake: never Patient Tobacco Use Status: Never used Tobacco e-Cigarette/Vaping Use: Never Used Second Hand Smoke Exposure: Yes service: Yes Current occupational status: employed Cognitive needs: No Hearing needs: No Vision needs: No Office Procedures Cardiac Device Check Cardiac Device Check Details: Date of service- 09/21/2023; based on impedance data and physiological va riables, there is no evidence of worsening congestive heart failure. [id number] Cardiac Device Interrogation, cardio physiologic monitor Procedure code (CPT) selection complete Assessment & Plan Assessment & Plan (1) Chronic right heart failure: Code(s): I50.812 - Chronic right heart failure Plan x Coding Level of Care Code Procedure Only Diagnoses Chronic right heart failure I50.812 CPT Codes Cardiac Device Check - Cardiac Device 15: [id number] Cardiac Device Interrogation, cardio physiologic monitor ([id number])
== END ==
PROVIDERS: PCP Internal Medicine; Visit Provider Internal Medicine
DX: I50.40 Unspecified combined systolic (congestive) and diastolic (congestive) heart failure (principal); I50.812 Chronic right heart failure; Z95.0 Presence of cardiac pacemaker
CPT/HCPCS: 93297

== ENCOUNTER 2023-09-22 15:46 | Outpatient (AMB) | payer BC, SELFPAY ==
[2023-09-22 15:53] VITALS: BP 132/60; PULSE 90; O2SAT 98; BMI 36.4
--- NOTE | 2023-09-22 15:53 | HO.NEPHOV ---
HPI HPI Comments History of Present Illness Details 58-year-old man with a history of diabetes mellitus and hypertension is here for evaluation of CKD. [facility] Medical History (Updated 09/08/23 @ 08:12 by MADDIE King) Vitamin D deficiency History of amputation of toe Obesity (BMI 30-39.9) Pure hypercholesterolemia Benign essential hypertension Combined systolic and diastolic congestive heart failure Chronic kidney disease (CKD), stage III (moderate) Diabetic foot ulcer with osteomyelitis Complete heart block CHF (congestive heart failure) BPH (benign prostatic hyperplasia) Proteinuria Hyperlipidemia Essential hypertension Normally functioning cardiac pacemaker present Chronic right heart failure Heart block CKD (chronic kidney disease) Hypertension Type 2 diabetes mellitus Pacemaker Surgical History Type 2 diabetes mellitus with other diabetic kidney complication History of cardiac pacemaker (~04/15/20) Family History Mother CVA (cerebral vascular accident) Diabetes Social History Housing: Apartment Alcohol intake: never Patient Tobacco Use Status: Never used Tobacco e-Cigarette/Vaping Use: Never Used Second Hand Smoke Exposure: Yes service: Yes Current occupational status: employed Cognitive needs: No Hearing needs: No Vision needs: No Vital Signs 09/22/23 15:53 Height 5 ft 9 in Weight 246 lb 4 oz BMI 36.4 BP 132/60 Blood Pressure Location Rt brachial Position Sitting Pulse 90 Pulse Source Pulse Oximeter Pulse Oximetry (%) 98 Oxygen Delivery Method Room Air Physical Exam Vital Signs: Last Vital Signs Pulse 90 09/22/23 15:53 BP 132/60 09/22/23 15:53 Pulse Ox 98 09/22/23 15:53 Oxygen Delivery Method Room Air 09/22/23 15:53 BMI result Body Mass Index 36.4 Const General: comfortable Nutritional Appearance: well nourished Orientation/consciousness: patient oriented x3 HEENT Head: No normal to inspection Mouth: moist mucous membranes Neck Neck: Yes supple and Yes no JVD Resp Auscultation: clear to auscultation bilaterally, no rales and rub present Cardio Jugular venous distension: no JVD Palpation: no palpable S3 and no palpable S4 Heart sounds: no rubs GI Palpation (GI): Soft to palpation and nontender Percussion: No Fluid wave present General: Yes no CVA tenderness Back/Spine/Pelvis Back: no CVA tenderness Skin General skin exam: no rashes or lesions noted Neuro General: patient oriented x3 Extrem General: Yes no pedal edema and No clubbing Assessment & Plan Assessment & Plan (1) Chronic kidney disease (CKD), stage III (moderate): Code(s): N18.30 - Chronic kidney disease, stage 3 unspecified Qualifiers: Chronic kidney disease stage 3 subtype: stage 3b (GFR 30-44) Qualified Code(s): N18.32 - Chronic kidney disease, stage 3b Plan Middle-aged man with longstanding diabetes mellitus with CKD. Quintin most likely has diabetic kidney disease. Nondiabetic causes need to be ruled out. Workup as outlined below. At this point the goal is to slow the progression of renal disease. Maintain A1c less than 7% and continue overt nephrotoxic agents including NSAIDs. We discussed importance of maintain blood pressure less than 130/80 mm Hg. He is on spironolactone for RAAS inhibition. And not made any changes in his medications today. He will return to the office once the baseline workup was completed. Orders: Orders US renal BI 09/22/23 N18.30 - Chronic kidney disease, stage 3 unspecified Ferritin 3 Weeks N18.30 - Chronic kidney disease, stage 3 unspecified Complete Blood Count no Diff 3 Weeks N18.30 - Chronic kidney disease, stage 3 unspecified UA and rflx microscopic 3 Weeks N18.30 - Chronic kidney disease, stage 3 unspecified IRON PROFILE 3 Weeks N18.30 - Chronic kidney disease, stage 3 unspecified Total Protein Urine Random 3 Weeks N18.30 - Chronic kidney disease, stage 3 unspecified Creatinine Urine 3 Weeks N18.30 - Chronic kidney disease, stage 3 unspecified Parathyroid Hormone Intact 3 Weeks N18.30 - Chronic kidney disease, stage 3 unspecified Coding Level of Care Code New Pt Level 4 (91529) Diagnoses Stage 3b chronic kidney disease N18.32 Chronic kidney disease stage 3 subtype: stage 3b (GFR 30-44) Results Reviewed Nephrology Results: Hgb 10.1 g/dl (14.0-18.0) L 08/24/23 WBC 6.8 X10*3/uL (4.8-10.8) 08/24/23 Plt Count 278 X10*3/uL (160-400) 08/24/23 Sodium 138 mmol/L (135-145) 08/24/23 Potassium 4.3 mmol/L (3.3-5.1) 08/24/23 Chloride 103 mmol/L (96-108) 08/24/23 Carbon Dioxide 28 mmol/L (22-29) 08/24/23 BUN 30 mg/dL (9-16) H 08/24/23 Creatinine 1.81 mg/dL (0.5-1.4) H 08/24/23 Calcium 9.2 mg/dL (8.4-10.2) 08/24/23 Urine Protein Negative mg/dL (Neg-Trace) 08/24/23 Urine Creatinine 137.06 mg/dL 08/24/23
== END 2023-09-22 16:32 | disposition home or self-care (01) ==
PROVIDERS: PCP Internal Medicine; Visit Provider Internal Medicine Hypertension Specialist
DX: N18.32 Chronic kidney disease, stage 3b (principal)
CPT/HCPCS: 99204

== ENCOUNTER → 2023-09-22 15:46 | Outpatient (BNVA) | payer BC, SELFPAY | PROVIDERS: PCP Internal Medicine; Visit Provider Internal Medicine Hypertension Specialist ==

== ENCOUNTER → 2023-09-28 13:53 | Outpatient (REF) | payer BC, SELFPAY ==
--- NOTE | 2023-09-28 13:55 | CA_ITS ---
Transthoracic Echocardiogram Patient (Last, First, Middle): Quintin Chacon D Gender: Male Date of : 1965 Age: 58 Procedure Date: 09/28/2023 Procedure Type: Transthoracic Echocardiogram Location: OP Height: 175.26 cm Weight: 112.04 kg BSA: 2.26 m2 Heart Rate: bpm BP: 122 / 66 mmHg Building Service Worker: ADRIANNA Referring MD: Tuyet Oneil FOOD AND NUTRITION SERVICES ASSISTANT-C Starting Sheet Tank Operator: Levy Kimble MD Symptoms: I47.29 - Other ventricular tachycardia Study Quality: Fair ECG Rhythm: Ventriculary paced rhythm Conclusions: - 1. Moderately reduced LV ejection fraction 35-40% with mild LVH next 2. At least moderately dilated left atrium 3. Normal cardiac valvular Doppler 4. Upper limits of normal ascending aortic size 5. RV systolic pressure measured to be within normal limits 6. Trivial pericardial effusion Findings Left Ventricle Normal left ventricular cavity size. There is mildly increased left ventricular wall thickness. The left ventricular systolic function is moderately decreased. The visually estimated ejection fraction is between 35 40%. There is paradoxical septal motion consistent with a right ventricular pacemaker. Diastolic function is indeterminate on the basis of available data. Right Ventricle Normal right ventricular cavity size. There is borderline right ventricular systolic function. There is a pacemaker wire seen in the right ventricle. Atria The left atrium is moderately dilated. Interatrial shunt cannot be excluded. The right atrium is mildly dilated. A pacemaker wire is identified in the right atrium. Aortic Valve Normal aortic valve structure and function. There is no aortic valve stenosis. There is no aortic valve regurgitation. Mitral Valve There is mild anterior and posterior mitral leaflet thickening. There is trace mitral valve regurgitation. There is no mitral valve stenosis. Pulmonic Valve The pulmonic valve was not well visualized. Tricuspid Valve Likely normal tricuspid valve structure and function. There is mild tricuspid valve regurgitation. The right ventricular systolic pressure is normal. The right ventricular systolic pressure is 13 mmHg. Normal right atrial pressure. There is no evidence of pulmonary hypertension. Great Vessels The pulmonary artery was not well visualized. Venous The inferior vena cava is normal in size. Pericardium/Pleural There is a trivial loculated pericardial effusion overlying the left ventricle. Prior Study Comparison Changes noted compared to prior study dated: 06/26/2020. LV systolic function is reduced Recommendations, Care & Conclusions Recommend contrast in the future to improve endocardial definition. Measurements 2D Linear Measurements IVSd: 1.39 0.6-0.9/0.6-1.0 cm LVIDd: 5.11 3.9-5.3/4.2-5.9 cm LVIDd Index: 2.26 2.4-3.2/2.2-3.1 cm/m2 LVIDs: 3.66 2.0-3.6 cm LVPWd: 1.33 0.7-1.1 cm Ao Root: 3.40 2.1-3.5 cm LA Diam: 3.40 2.7-3.8/3.0-4.0 cm LAIDs Index: 1.50 1.5-2.3 cm/m2 LV Mass: 360.48 67-162/88-224 g LV Mass Index: 159.50 43-95/49-115 g/m2 LVOT Diam: 2.40 3.0+(-)1.3 cm 2D Systolic Function EF 4C: 36.00 >55% EF 2C: 42.70 >55% EF BiP: 39.70 >55% Mitral Valve MV Pk E: 1.28 MV Decel Time: 139.00 E'Lateral: 3.15 E'Medial: 3.70 E/E' Med: 34.60 E/E' Lat: 40.60 PHT: 41.00 MVA PHT: 5.37 Decel [place]: 9.20 Aortic Valve AoV Pk Andrei: 1.42 AoV Mn Andrei: 0.94 AoV VTI: 0.28 AoV Pk Grad: 8.00 Aov Mn Grad: 4.00 SAKINA Cont.VTI: 3.14 LVOT LVOT Pk Andrei: 0.90 LVOT Mn Andrei: 0.62 LVOT VTI: 0.20 LVOT Pk Grad: 3.00 LVOT Mn Grad: 2.00 LVOT Diam: 2.40 LVOT Area: 4.52 Diastolic Function MV Pk E: 1.28 E'Medial: 3.70 E/E' Med: 34.60 E' Laterial: 3.15 E/E' Lat: 40.60 Right Ventricle TAPSE (mm): 30.00 TVS' Andrei: 16.00 Tricuspid Valve TR Pk Andrei: 1.59 TR Pk Grad: 10.00 RA Press: 3.00 RVSP: 13.00 Great Vessels Aorta Ao Root-2D: 3.40 2.0-3.7 cm Ao Asc: 3.50 2.1-3.4 cm Pulmonary Valve PV Pk Andrei: 1.10 Peak PV Grad: 5.00 Updated in Other Vendor System with Status of Final Levy Kimble MD electronically signed on 09/29/2023 2:14:46 PM with status of Final
== END ==
LOC: HO.CARD 13:53
PROVIDERS: PCP Internal Medicine; Visit Provider Nurse Practitioner Family
DX: I47.29 Other ventricular tachycardia (principal)
CPT/HCPCS: 93306

== ENCOUNTER → 2023-09-28 13:55 | Outpatient (BNV) | payer BC, SELFPAY | PROVIDERS: PCP Internal Medicine; Visit Provider Internal Medicine Cardiovascular Disease | DX: I36.1 Nonrheumatic tricuspid (valve) insufficiency (principal) | CPT/HCPCS: 93306 ==

== ENCOUNTER 2023-10-14 14:09 | Outpatient (REF) | payer BC, SELFPAY ==
[2023-10-14 15:33] LABS: Prothrombin Time 12.3 SEC (11.1-13.3)
[2023-10-14 15:58] LABS: Anion Gap 12 (12-20); Blood Urea Nitrogen 26 mg/dL (9-16); Calcium 8.9 mg/dL (8.4-10.2); Carbon Dioxide 27 mmol/L (22-29); Chloride 105 mmol/L (96-108); Estimated Glomerular Filt Rate 36; Glucose Random 111 mg/dL (60-115); Potassium 4.1 mmol/L (3.3-5.1); Sodium 140 mmol/L (135-145)
== END 2023-10-14 14:10 | disposition home or self-care (01) ==
LOC: HO.LAB 14:09
PROVIDERS: PCP Internal Medicine; Referring Provider Internal Medicine Hypertension Specialist; Visit Provider Nurse Practitioner Family
DX: I50.40 Unspecified combined systolic (congestive) and diastolic (congestive) heart failure (principal); I47.29 Other ventricular tachycardia; Z95.0 Presence of cardiac pacemaker
CPT/HCPCS: 36415; 80048; 85610

== ENCOUNTER 2023-10-14 14:09 | Outpatient (AMB) | payer BC, SELFPAY ==
[2023-10-14 14:11] VITALS: BP 120/64; PULSE 81; BMI 35.8
--- NOTE | 2023-10-14 14:11 | MHC.OFFVIS ---
Intake Vital Signs 10/14/23 14:11 Height 5 ft 9 in Weight 242 lb 8.136 oz BMI 35.8 BP 120/64 Blood Pressure Location Lt brachial Position Sitting Pulse 81 Pulse Source Pulse Oximeter Intake Visit Reasons: discuss echo and set up cardiac cath Intake Note: pt comes in to the office to discuss about the results of an echo pt its feeling fine but its just anxious about the results. Graphotype Operator Required: No Accompanied by: Self / Same As Patient Allergies regadenoson [From Lexiscan] Adverse Reaction (Severe, Verified 09/22/23 15:57) seizure type activity Medication List - Last Reconciled 10/14/23 by MADDIE King alcohol swabs (BD Alcohol Swabs) 1 pad topical QID amlodipine 10 mg PO DAILY 90 days atorvastatin 20 mg PO BEDTIME 90 days blood sugar diagnostic (Vision TechnologiesTouch Verio test strips) 1 strip miscellaneous TID 30 days blood sugar diagnostic (OneTouch Ultra Test strips) As directed -tests 4 X/day blood-glucose meter (Jobyourlifeuch Ultra2 Meter) As directed tests 4 X/day bumetanide 2 mg PO BID 30 days cholecalciferol (vitamin D3) 50 mcg PO DAILY 90 days dulaglutide (Trulicity) 0.75 mg (0.5 mL) subcut QWEEK flash glucose scanning reader (VivorteStyle Tish 2 [place]) As directed flash glucose sensor (FreeStyle Tish 2 Sensor kit) As directed change every 14 days hydralazine 100 mg PO TID 90 days insulin glargine (Basaglar KwikPen U-100 Insulin) 10 units (0.1 mL) subcut QPM 30 days isosorbide mononitrate ER 60 mg PO DAILY 90 days labetalol 100 mg PO BID lancets As directed lancets ([employer]yourlifeuch UltraSoft Lancets) As directed-tests 4 X/day pen needle, diabetic As directed spironolactone 50 mg (2 x 25 mg) PO QAM tamsulosin 0.4 mg PO DAILY 90 days HPI discuss echo and set up cardiac cath HPI Details Quintin is a 58 yo male with PMH of HTN, HLD, DM, CKD, right heart failure, dual-chamber pacemaker who recently had episode of nonsustained ventricular tachycardia seen on remote pacemaker monitoring. An echocardiogram was done showing new cardiomyopathy with EF 35-40%. Now presents for follow-up to discuss cardiac catheterization. Today he reports he has been feeling well with no concerning symptoms. Denies chest discomfort at rest or with activity. No shortness of breath, palpitations, lightheadedness, presyncope, syncope, PND, orthopnea or edema. He does have fatigue. 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 He reports good activity tolerance. He is taking all meds as directed. He follows with Dr. Liz for Nephrology and has an upcoming visit with him. [facility] Medical History Vitamin D deficiency History of amputation of toe Obesity (BMI 30-39.9) Pure hypercholesterolemia Benign essential hypertension Combined systolic and diastolic congestive heart failure Chronic kidney disease (CKD), stage III (moderate) Diabetic foot ulcer with osteomyelitis Complete heart block CHF (congestive heart failure) BPH (benign prostatic hyperplasia) Proteinuria Hyperlipidemia Essential hypertension Normally functioning cardiac pacemaker present Chronic right heart failure Heart block CKD (chronic kidney disease) Hypertension Type 2 diabetes mellitus Pacemaker Surgical History Type 2 diabetes mellitus with other diabetic kidney complication History of cardiac pacemaker (~04/15/20) Family History Mother CVA (cerebral vascular accident) Diabetes Social History Housing: Apartment Alcohol intake: never Patient Tobacco Use Status: Never used Tobacco e-Cigarette/Vaping Use: Never Used Second Hand Smoke Exposure: Yes service: Yes Current occupational status: employed Cognitive needs: No Hearing needs: No Vision needs: No Review of Systems Const Denies chills, Reports fatigue, Denies fever(s), Denies frequent falls, Denies weakness, Denies weight gain and Denies weight loss ENT Denies dizziness Card Denies chest pain, Denies leg edema, Denies lightheadedness, Denies palpitations, Denies dyspnea and Denies dyspnea on exertion Resp Denies cough, Denies dyspnea and Denies dyspnea on exertion GI Denies hematochezia Musc Denies abnormal gait, Denies muscle weakness, Denies numbness, Denies radiating pain into limb and Denies tingling Neuro Denies abnormal gait, Denies dizziness, Denies frequent falls, Denies numbness, Denies tingling and Denies weakness Endo Reports fatigue and Denies palpitations Physical Exam Vital Signs: Last Vital Signs Pulse 81 10/14/23 14:11 BP 120/64 10/14/23 14:11 BMI result Body Mass Index 35.8 Const General: cooperative, healthy appearing, comfortable and no acute distress Orientation/consciousness: patient oriented x3 Neck Neck: Yes normal visual inspection Resp Effort & Inspection: normal respiratory effort Auscultation: clear to auscultation bilaterally, no crackles, no rales, no rhonchi and no wheezes Cardio Jugular venous distension: no JVD Rate: regular rate Rhythm: regular rhythm Heart sounds: S1 normal heart sound present, S2 normal heart sound present, no murmurs and no rubs Neuro General: patient oriented x3 Extrem Other: Mild swelling right lower extremity General: Yes normal to inspection and No calf tenderness Psych Appearance: grossly normal Mental Status: mental status grossly normal Speech and movement: Normal speech and movement present Assessment & Plan Assessment & Plan (1) NSVT (nonsustained ventricular tachycardia): Code(s): I47.29 - Other ventricular tachycardia Plan: Recent pacemaker remote monitoring shows a 10 second episode of NSVT. He is on labetalol for beta-celia. Echocardiogram was done on 09/28/2023 showing EF 35-40%, mild LVH, normal valves. Last prior echo done 06/26/2020 showed normal EF. Has no known history of CAD. He denies any anginal sounding symptoms. He has had adverse reaction to regadenoson in the past: seizure. Unable to do a pharmacological nuclear stress test on him. He does have known chronic kidney disease with most recent creatinine 1.81. CTA of coronaries will be avoided. Discussed with Dr. Quintero. He recommends a diagnostic cardiac catheterization to evaluate for any obstructive coronary artery disease. Reviewed echo and need for cardiac catheterization with patient. Risks of the procedure including bleeding, infection, JULIA, NC, stroke discussed. At this time he is not willing to make a decision either way. He wants to discuss this with his family and with his spikemaking supervisor Dr. Liz. He is planning to get lab work today for Dr. Liz. Will add preprocedure labs to avoid repeat venous stick. Office number given to him and instructed to call us within a few days with his decision. Signs and symptoms of angina reviewed. Emergency care if ever needed for symptoms. Cardiology follow-up post cardiac catheterization if he is agreeable otherwise he has an appointment scheduled for April 2024. (2) Cardiomyopathy: Code(s): I42.9 - Cardiomyopathy, unspecified Plan: History of heart failure with preserved EF, right-sided heart failure. Recent echo as above with EF 35-40%. He does not have signs of decompensated heart failure on examination today. He continues on Bumex 2 mg b.i.d. and Aldactone 50 mg daily. His current beta-celia is labetalol. He is also on hydralazine t.i.d.. He is not on Hamzah/Arb due to chronic kidney disease. Planning for cardiac catheterization as above. (3) Combined systolic and diastolic congestive heart failure: Code(s): I50.40 - Unspecified combined systolic (congestive) and diastolic (congestive) heart failure Qualifiers: Heart failure chronicity: unspecified Qualified Code(s): I50.40 - Unspecified combined systolic (congestive) and diastolic (congestive) heart failure Plan: Stable at present. Signs and symptoms of heart failure reviewed with him. He states full understanding. (4) Complete heart block: Comment: S/P pacemaker insertion on 04/15/2020 Code(s): I44.2 - Atrioventricular block, complete Plan: History of complete heart block. Has Biotronik dual-chamber pacemaker in place. Functioning normally on last office interrogation. Does have remote monitoring in use as well. Next office interrogation due April 2024 (5) Normally functioning cardiac pacemaker present: Code(s): Z95.0 - Presence of cardiac pacemaker Plan: As above (6) Essential hypertension: Code(s): I10 - Essential (primary) hypertension Plan: Well controlled at present. No med changes made Plan Time spent on chart review, documentation, interview and assessment Orders: Orders Prothrombin Time INR Today I50.40 - Unspecified combined systolic (congestive) and diastolic (congestive) heart failure Basic Metabolic Panel Today I50.40 - Unspecified combined systolic (congestive) and diastolic (congestive) heart failure Coding Level of Care Code Est Pt Level 4 (78944) Diagnoses NSVT (nonsustained ventricular tachycardia) I47.29 Cardiomyopathy I42.9 Combined systolic and diastolic congestive heart failure, unspecified HF chronicity I50.40 Heart failure chronicity: unspecified Complete heart block I44.2 Normally functioning cardiac pacemaker present Z95.0 Essential hypertension I10 Time Spent (min) 28
== END 2023-10-14 14:54 | disposition home or self-care (01) ==
PROVIDERS: PCP Internal Medicine; Visit Provider Nurse Practitioner Family
DX: I47.29 Other ventricular tachycardia (principal); I42.9 Cardiomyopathy, unspecified; I50.40 Unspecified combined systolic (congestive) and diastolic (congestive) heart failure; I44.2 Atrioventricular block, complete; Z95.0 Presence of cardiac pacemaker; I10 Essential (primary) hypertension
CPT/HCPCS: 99214

== ENCOUNTER → 2023-10-24 08:14 | Outpatient (BNV) | payer BC, SELFPAY | PROVIDERS: PCP Internal Medicine; Visit Provider Internal Medicine | DX: D64.9 Anemia, unspecified (principal); N18.30 Chronic kidney disease, stage 3 unspecified | CPT/HCPCS: 99204; 99213 ==

== ENCOUNTER → 2023-10-24 23:59 | Outpatient (BNV) | payer BC, SELFPAY ==
--- NOTE | 2023-10-24 19:16 | MHC.OFFVIS ---
Intake Intake Visit Reasons: Remote Device Check- Biotronik Allergies regadenoson [From Lexiscan] Adverse Reaction (Severe, Verified 09/22/23 15:57) seizure type activity PFSH Medical History Vitamin D deficiency History of amputation of toe Obesity (BMI 30-39.9) Pure hypercholesterolemia Benign essential hypertension Combined systolic and diastolic congestive heart failure Chronic kidney disease (CKD), stage III (moderate) Diabetic foot ulcer with osteomyelitis Complete heart block CHF (congestive heart failure) BPH (benign prostatic hyperplasia) Proteinuria Hyperlipidemia Essential hypertension Normally functioning cardiac pacemaker present Chronic right heart failure Heart block CKD (chronic kidney disease) Hypertension Type 2 diabetes mellitus Pacemaker Surgical History Type 2 diabetes mellitus with other diabetic kidney complication History of cardiac pacemaker (~04/15/20) Family History Mother CVA (cerebral vascular accident) Diabetes Social History Housing: Apartment Alcohol intake: never Patient Tobacco Use Status: Never used Tobacco e-Cigarette/Vaping Use: Never Used Second Hand Smoke Exposure: Yes service: Yes Current occupational status: employed Cognitive needs: No Hearing needs: No Vision needs: No Office Procedures Cardiac Device Check Cardiac Device Check Details: Date of service- 10/24/2023; based on impedance data and physiological variables, there is no evidence of worsening congestive heart failure. [id number] Cardiac Device Interrogation, cardio physiologic monitor Procedure code (CPT) selection complete Assessment & Plan Assessment & Plan (1) Cardiomyopathy: Code(s): I42.9 - Cardiomyopathy, unspecified Plan x Coding Level of Care Code Procedure Only Diagnoses Cardiomyopathy I42.9 CPT Codes Cardiac Device Check - Cardiac Device 15: [id number] Cardiac Device Interrogation, cardio physiologic monitor ([id number])
== END ==
PROVIDERS: PCP Internal Medicine; Visit Provider Internal Medicine
DX: I50.40 Unspecified combined systolic (congestive) and diastolic (congestive) heart failure (principal); Z95.0 Presence of cardiac pacemaker
CPT/HCPCS: 93297

== ENCOUNTER → 2023-10-24 23:59 | Outpatient (BNV) | payer BC, SELFPAY ==
--- NOTE | 2023-10-24 19:19 | A.OFFVIS_ITS ---
Intake Intake Visit Reasons: Remote HF Monitoring- Biotronik Allergies regadenoson [From Lexiscan] Adverse Reaction (Severe, Verified 09/22/23 15:57) seizure type activity PFSH Medical History Vitamin D deficiency History of amputation of toe Obesity (BMI 30-39.9) Pure hypercholesterolemia Benign essential hypertension Combined systolic and diastolic congestive heart failure Chronic kidney disease (CKD), stage III (moderate) Diabetic foot ulcer with osteomyelitis Complete heart block CHF (congestive heart failure) BPH (benign prostatic hyperplasia) Proteinuria Hyperlipidemia Essential hypertension Normally functioning cardiac pacemaker present Chronic right heart failure Heart block CKD (chronic kidney disease) Hypertension Type 2 diabetes mellitus Pacemaker Surgical History Type 2 diabetes mellitus with other diabetic kidney complication History of cardiac pacemaker (~04/15/20) Family History Mother CVA (cerebral vascular accident) Diabetes Social History Housing: Apartment Alcohol intake: never Patient Tobacco Use Status: Never used Tobacco e-Cigarette/Vaping Use: Never Used Second Hand Smoke Exposure: Yes service: Yes Current occupational status: employed Cognitive needs: No Hearing needs: No Vision needs: No Office Procedures Cardiac Device Check Cardiac Device Check Details: Date of service- 10/24/2023 ; Battery life 65%; normal lead parameters; AP 19%; BOOKBINDER APPRENTICE 100%; no significant arrhythmias. Overall normal device function. [id number] Cardiac Device Interrogation, pacemaker Procedure code (CPT) selection complete Assessment & Plan Assessment & Plan (1) Cardiomyopathy: Code(s): I42.9 - Cardiomyopathy, unspecified Plan x Coding Level of Care Code Procedure Only Diagnoses Cardiomyopathy I42.9 CPT Codes Cardiac Device Check - Cardiac Device 12: [id number] Cardiac Device Interrogation, pacemaker ([id number])
== END ==
PROVIDERS: PCP Internal Medicine; Visit Provider Internal Medicine
DX: I42.9 Cardiomyopathy, unspecified (principal); Z95.0 Presence of cardiac pacemaker
CPT/HCPCS: 93294

== ENCOUNTER 2023-10-28 14:08 | Outpatient (REF) | payer BC, SELFPAY | END 2023-10-28 14:09 | disposition home or self-care (01) | LOC: HO.US 14:08 | PROVIDERS: PCP Internal Medicine; Visit Provider Internal Medicine Hypertension Specialist | DX: Z13.89 Encounter for screening for other disorder (principal) ==

== ENCOUNTER 2023-11-10 13:52 | Outpatient (REF) | payer BC, SELFPAY ==
--- NOTE | ~2023-11-10 | US_ITS ---
EXAMINATION: US RETROPERITONEAL LIMITED (RENAL ONLY) CLINICAL INFORMATION: Chronic kidney disease, stage 3 unspecified. COMPARISON: Renal ultrasound 04/16/2020. TECHNIQUE: Real-time imaging of the kidneys. Limited visualization due to bowel gas. FINDINGS: RIGHT KIDNEY: 10.8 x 4.5 x 5.7 cm (SAG x AP x TRV). No hydronephrosis. No renal calculi. Renal cortical thickness is normal. Limited visualization. Possible 2.5 x 1.4 x 2.0 cm heterogeneous area in the upper pole difficult to characterize as visualization is limited due to bowel gas and may possibly represent a hepatic mass. CT scan recommended for further evaluation. LEFT KIDNEY: 10.5 x 6.2 x 4.9 cm (SAG x AP x TRV). No hydronephrosis. No renal calculi. Renal cortical thickness is normal. Limited visualization. US/US renal BI IMPRESSION: Possible 2.5 cm heterogeneous area in the upper pole difficult to characterize as visualization is limited due to bowel gas and may possibly represent a hepatic mass. CT scan recommended for further evaluation. This study was presented today 11/14/2023 for interpretation. PSA staff will provide results to referring provider at this time.
== END 2023-11-10 13:53 | disposition home or self-care (01) ==
LOC: HO.US 13:52
PROVIDERS: PCP Internal Medicine; Visit Provider Psychiatry & Neurology Neurology
DX: N18.30 Chronic kidney disease, stage 3 unspecified (principal)
CPT/HCPCS: 76775

== ENCOUNTER → 2023-11-24 23:59 | Outpatient (BNV) | payer BC, SELFPAY ==
--- NOTE | 2023-11-30 14:59 | MHC.OFFVIS ---
Intake Intake Visit Reasons: Remote HF Monitoring- [employer] Allergies regadenoson [From Lexiscan] Adverse Reaction (Severe, Verified 09/22/23 15:57) seizure type activity PFSH Medical History Vitamin D deficiency History of amputation of toe Obesity (BMI 30-39.9) Pure hypercholesterolemia Benign essential hypertension Combined systolic and diastolic congestive heart failure Chronic kidney disease (CKD), stage III (moderate) Diabetic foot ulcer with osteomyelitis Complete heart block CHF (congestive heart failure) BPH (benign prostatic hyperplasia) Proteinuria Hyperlipidemia Essential hypertension Normally functioning cardiac pacemaker present Chronic right heart failure Heart block CKD (chronic kidney disease) Hypertension Type 2 diabetes mellitus Pacemaker Surgical History Type 2 diabetes mellitus with other diabetic kidney complication History of cardiac pacemaker (~04/15/20) Family History Mother CVA (cerebral vascular accident) Diabetes Social History Housing: Apartment Alcohol intake: never Patient Tobacco Use Status: Never used Tobacco e-Cigarette/Vaping Use: Never Used Second Hand Smoke Exposure: Yes service: Yes Current occupational status: employed Cognitive needs: No Hearing needs: No Vision needs: No Office Procedures Cardiac Device Check Cardiac Device Check Details: Date of service- 11/24/2023; based on impedance data and physiological variables, there is no evidence of worsening congestive heart failure. Activity 16% of day. [id number] Cardiac Device Interrogation, cardio physiologic monitor Procedure code (CPT) selection complete Assessment & Plan Assessment & Plan (1) Chronic right heart failure: Code(s): I50.812 - Chronic right heart failure Plan x Coding Level of Care Code Procedure Only Diagnoses Chronic right heart failure I50.812 CPT Codes Cardiac Device Check - Cardiac Device 15: [id number] Cardiac Device Interrogation, cardio physiologic monitor ([id number])
== END ==
PROVIDERS: PCP Internal Medicine; Visit Provider Internal Medicine
DX: I50.812 Chronic right heart failure (principal); Z95.0 Presence of cardiac pacemaker
CPT/HCPCS: 93297

== ENCOUNTER 2023-11-29 09:59 | Outpatient (AMB) | payer BC, SELFPAY ==
--- NOTE | 2023-11-29 10:04 | A.OFFVIS_ITS ---
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 Required: No Accompanied by: Self / Same As Patient Allergies regadenoson [From Lexiscan] Adverse Reaction (Severe, Verified 09/22/23 15:57) seizure type activity HPI Comprehensive Diabetes Asmnt Most Recent Diabetes Results: Hemoglobin A1c 5.8 % 04/09/20 Microalb/Creat Ratio 40.1 ug/mg cr (<30) H 08/24/23 Cholesterol 96 mg/dL (<200) 08/24/23 HDL Cholesterol 29 mg/dL (>40) L 08/24/23 Triglycerides 46 mg/dL (<150) 08/24/23 Creatinine 1.93 mg/dL (0.5-1.4) H 10/14/23 Blood Urea Nitrogen 26 mg/dL (9-16) H 10/14/23 Sodium 140 mmol/L (135-145) 10/14/23 Potassium 4.1 mmol/L (3.3-5.1) 10/14/23 Chloride 105 mmol/L (96-108) 10/14/23 Carbon Dioxide 27 mmol/L (22-29) 10/14/23 Calcium 8.9 mg/dL (8.4-10.2) 10/14/23 AST 17 U/L (5-37) 08/24/23 ALT 16 U/L (0-40) 08/24/23 Total Protein 7.6 g/dL (6.5-8.0) 08/24/23 Albumin 3.7 g/dL (3.5-5.0) 08/24/23 [facility] Medical History Vitamin D deficiency History of amputation of toe Obesity (BMI 30-39.9) Pure hypercholesterolemia Benign essential hypertension Combined systolic and diastolic congestive heart failure Chronic kidney disease (CKD), stage III (moderate) Diabetic foot ulcer with osteomyelitis Complete heart block CHF (congestive heart failure) BPH (benign prostatic hyperplasia) Proteinuria Hyperlipidemia Essential hypertension Normally functioning cardiac pacemaker present Chronic right heart failure Heart block CKD (chronic kidney disease) Hypertension Type 2 diabetes mellitus Pacemaker Surgical History Type 2 diabetes mellitus with other diabetic kidney complication History of cardiac pacemaker (~04/15/20) Family History Mother CVA (cerebral vascular accident) Diabetes Social History Housing: Apartment Alcohol intake: never Patient Tobacco Use Status: Never used Tobacco e-Cigarette/Vaping Use: Never Used Second Hand Smoke Exposure: Yes service: Yes Current occupational status: employed Cognitive needs: No Hearing needs: No Vision needs: No Assessment & Plan Assessment & Plan (1) Type 2 diabetes mellitus with other diabetic kidney complication: Code(s): E11.29 - Type 2 diabetes mellitus with other diabetic kidney complication Plan: Diabetes self-management education and support participation record Assessment/scale: 1= needs instructed? 2= needs review? 3= comprehend keep point? 4= demonstrates understanding/ competent? NC= Not Covered Topics Learning Objective: Initial visit Initial or post srvc Initial or post srvc Initial or post srvc Initial or post srvc Initial or post srvc Post srvc Comments Pre Edu-assessment/plan Outcome or reassess Outcome or reassess Outcome or reassess Outcome or reassess Outcome or reassess Outcome or reassess Diabetes pathophysiology 2 3 Healthy eating 2 3 Being active 2 3 Taking medication 2 3 Monitoring glucose 2 3 Acute complication 2 Chronic complicated 2 3 Lifestyle and healthy coping 1 3 Diabetes distress in support 1 3 ?Diabetes pathophysiology: ?Defined diabetes med identify own type of diabetes; list 3 options for treating diabetes Healthy eating: ?Described effect of type, amount and ?timing of food on blood glucose; list 3 methods for planning meal Being active: ?State effect of exercise on blood glucose level Taking medication: ?State effect of diabetes medications on diabetes; name diabetes medications taking, action and side effects Monitoring glucose: ?Identify recommended blood glucose targets and personal target Acute complication: ?List symptoms and treatment of hyper and hypoglycemia, DKA, sick day guidelines and guidelines for severe weather or situations of crisis and diabetes supply manage Chronic complication: ?To find the relationship of blood glucose levels to long- term complications of diabetes in screening and preventative measures Lifestyle and healthy coping: ?Described lifestyle and healthy coping strategies to rule out diabetes self-management Diabetes to stress and support: ?Recognize Diabetes to stress and be able to identified support options Learning objectives: The patient was provided with verbal and written education on the following topics as outlined below. The patient met all learning objectives and was able to verbalize understanding and provide teach back of education topics discussed . The patient was provided with the opportunity to ask questions and all questions were answered. Patient Assessment Assess patient education level/literacy/barriers Patient questions/concerns, patient reports he still has not obtained blood glucose meter. I sent a message today to Dr. Glass patient's PCP to send glucose meter to patient's pharmacy, also called patient's pharmacy because he has not been able to pick up and delivery driver Trulicity 0.75 mg, pharmacy reports they are waiting on PCP office for PA. Patient reports he has recently seen attending radiologist who is recommending angioplasty, reviewed with patient long-term complications of diabetes and screenings to help reduce risk. Patient reports he is going to speak with his family regarding cardiac issues. In addition I recommended patient make appointment with registered dietitian to discuss dietary restrictions of diabetes, nephropathy, and CVD Patient is due for his next A1c, his last A1c in August 2023 7.4% Exercise Medical clearance Effect of exercise on blood sugar Start slowly and gradually increase pace/duration over time Goal amount of exercise Checking blood glucose/have a source of carbs with you Medications (If applicable) * Name of medication * Dosing/administration instructions * Mechanism of action * Potential side effects * Potential adverse reaction and appropriate treatment * Review onset, peak, duration Assess for concerns re: insurance coverage, cost, barriers to compliance Insulin/Injectables (If applicable) * Storage/care of insulin * Injection sites * Site rotation * Onset, peak, duration * Drawing up insulin * Injecting insulin/other injectables * Sharps disposal Continuous blood glucose monitoring (if applicable) Hypoglycemia and Hyperglycemia * Signs and symptoms * Causes * Treatment * Preventing hypoglycemia * When to seek medical attention Medical alert bracelet Lifestyle * Work * Travel * Stress management * Problem solving Know your goals * A1C * Blood sugar targets * Blood pressure * Cholesterol/LDL Urine microalbumin Smart Goal Assessment: Pt met goal:Pt patient will test blood sugars once a day Less than 25% the time: New Goal:? Will make appointment with dietitian Educational Materials: The patient was provided with the following written educational materials: ADCES 7 self-care behaviors Reducing Risk Patient Response to instructions: Comprehension of Instructions: Fair Readiness to make changes: Contemplation How confident they feel about making changes: Fair Patient Instructions: Include regular daily activity. ADA recommends 30 minutes of exercise 5 days a week. Weight loss talk to PCP or Banking Representative before starting new plan. Test blood sugar as directed; Fasting and 2hpp largest meal. Watch trends in results. Utilize results and to assess how food, physical activity and med ications affect blood sugar results. Bring glucometer or CGM to next visit. Be knowledgeable about diabetes medication, its action, side effects, efficacy, toxicity, prescribed dosage, appropriate timing and frequency of administration, effect of missed and delayed doses and instructions for storage, travel and safety. Problem solving techniques to monitor hypo/hyperglycemia episodes and treatme nts. Reduce risk reduction behaviors, smoking cessation, regular eye, foot and dental examinations. Coding Level of Care Code Est Pt Level 1 (18253) Diagnoses Type 2 diabetes mellitus with other diabetic kidney complication E11.29
== END 2023-11-29 10:41 | disposition home or self-care (01) ==
PROVIDERS: PCP Internal Medicine; Visit Provider Registered Nurse Diabetes Educator
DX: E11.29 Type 2 diabetes mellitus with other diabetic kidney complication (principal)

== ENCOUNTER → 2023-11-29 09:59 | Outpatient (BNVA) | payer BC, SELFPAY | PROVIDERS: PCP Internal Medicine; Visit Provider Registered Nurse Diabetes Educator | DX: E11.29 Type 2 diabetes mellitus with other diabetic kidney complication (principal) | CPT/HCPCS: 99211 ==

== ENCOUNTER 2024-01-06 11:37 | Outpatient (REF) | payer BC, SELFPAY ==
[2024-01-06 11:48] LABS: MANUAL DIFF FLAG NO
[2024-01-06 12:18] LABS: Basophils Absolute Auto 0.1 X10*3/uL (0.0-0.2); Basophils Percent Auto 0.6 % (0-2); Eosinophils Absolute Auto 0.1 X10*3/uL (0.0-0.4); Eosinophils Percent Auto 1.7 % (0-4); Hematocrit 37.8 % (42.0-52.0); Imm Gran Abs Auto 0.04 X10*3/uL (0.00-0.03); Imm Gran Pct Auto 0.5 % (0.0-0.4); Lymphocytes Absolute Auto 1.7 X10*3/uL (1.2-4.9); Lymphocytes Percent Auto 20.1 % (20-40); Mean Corpuscular HGB Conc 31.7 g/dl (31.0-36.0); Mean Corpuscular Hemoglobin 25.3 pg (27.0-33.0); Mean Corpuscular Volume 79.7 fL (80.0-98.0); Mean Platelet Volume 10.3 fL (9.4-12.4); Monocytes Absolute Auto 0.7 X10*3/uL (0.1-1.2); Monocytes Percent Auto 8.5 % (2-11); Neutrophils Absolute Auto 5.7 x10*3/uL (2.0-8.3); Neutrophils Percent Auto 68.6 % (45-73); Platelet Count 294 X10*3/uL (160-400); Red Blood Count 4.74 X10*6/uL (4.60-5.80); White Blood Count 8.3 X10*3/uL (4.8-10.8)
[2024-01-06 15:28] LABS: Estimated Average Glucose 174 mg/dL; Hemoglobin A1c % 7.7 % (<6.0)
[2024-01-06 17:11] LABS: Alanine Aminotransferase 21 U/L (0-40); Albumin Level 3.9 g/dL (3.5-5.0); Alkaline Phosphatase 83 U/L (39-117); Anion Gap 10 (12-20); Aspartate Amino Transferase 20 U/L (5-37); Bilirubin Total 0.4 mg/dL (0.0-1.0); Blood Urea Nitrogen 28 mg/dL (9-16); Carbon Dioxide 30 mmol/L (22-29); Chloride 104 mmol/L (96-108); Cholesterol 124 mg/dL (<200); Estimated Glomerular Filt Rate 37; Glucose Fasting 135 mg/dL (60-99); HDL Cholesterol 37 mg/dL (>40); Iron 51 mcg/dL (45-160); LDL Cholesterol Calculated 75 mg/dL (<100); Percent Iron Saturation 22 % (15-50); Potassium 4.7 mmol/L (3.3-5.1); Sodium 139 mmol/L (135-145); Total Iron Binding Capacity 227 mcg/dL (228-428); Total Protein 7.8 g/dL (6.5-8.0); Triglycerides 63 mg/dL (<150); Unsaturated Iron Binding 176 ug/dL
[2024-01-06 17:30] LABS: TSH reflex Free T4 1.13 uIU/mL (0.32-4.0); Vitamin D 25-OH Total 29.2 ng/mL (>30)
[2024-01-06 20:14] LABS: Folate 6.7 ng/mL (> or = 4.0)
[2024-01-08 00:29] LABS: Vitamin B12 472 pg/mL (200-900)
== END 2024-01-06 11:38 | disposition home or self-care (01) ==
LOC: HO.LAB 11:37
PROVIDERS: PCP Internal Medicine; Visit Provider Internal Medicine
DX: E11.9 Type 2 diabetes mellitus without complications (principal); D50.9 Iron deficiency anemia, unspecified; E78.00 Pure hypercholesterolemia, unspecified; I10 Essential (primary) hypertension; E55.9 Vitamin D deficiency, unspecified; E53.8 Deficiency of other specified B group vitamins
CPT/HCPCS: 36415; 80053; 80061; 82306; 82607; 82746; 83036; 83540; 84443; 85025

== ENCOUNTER → 2024-01-23 23:59 | Outpatient (BNV) | payer BC, SELFPAY ==
--- NOTE | 2024-01-26 12:21 | MHC.OFFVIS ---
Intake Visit Reasons: REmote device check- [employer] Allergies regadenoson [From Lexiscan] Adverse Reaction (Severe, Verified 09/22/23 15:57) seizure type activity [facility] Medical History Vitamin D deficiency History of amputation of toe Obesity (BMI 30-39.9) Pure hypercholesterolemia Benign essential hypertension Combined systolic and diastolic congestive heart failure Chronic kidney disease (CKD), stage III (moderate) Diabetic foot ulcer with osteomyelitis Complete heart block CHF (congestive heart failure) BPH (benign prostatic hyperplasia) Proteinuria Hyperlipidemia Essential hypertension Normally functioning cardiac pacemaker present Chronic right heart failure Heart block CKD (chronic kidney disease) Hypertension Type 2 diabetes mellitus Pacemaker Surgical History Type 2 diabetes mellitus with other diabetic kidney complication History of cardiac pacemaker (~04/15/20) Family History Mother CVA (cerebral vascular accident) Diabetes Social History Housing: Apartment Alcohol intake: never Patient Tobacco Use Status: Never used Tobacco e-Cigarette/Vaping Use: Never Used Second Hand Smoke Exposure: Yes service: Yes Current occupational status: employed Cognitive needs: No Hearing needs: No Vision needs: No Office Procedures Cardiac Device Check Cardiac Device Check Details: Date of service- 01/23/2024 ; Battery life 65%; normal lead parameters; AP 19%; INTERNATIONAL LOGISTICS MANAGER 100%; no significant arrhythmias. Overall normal device function. [id number] Cardiac Device Interrogation, pacemaker Procedure code (CPT) selection complete Assessment & Plan Assessment & Plan (1) Complete heart block: Comment: S/P pacemaker insertion on 04/15/2020 Code(s): I44.2 - Atrioventricular block, complete Category: Medical Plan x Coding Level of Care Code Procedure Only Diagnoses Complete heart block I44.2 CPT Codes Cardiac Device Check - Cardiac Device 12: [id number] Cardiac Device Interrogation, pacemaker ([id number])
== END ==
PROVIDERS: PCP Internal Medicine; Visit Provider Internal Medicine
DX: I44.2 Atrioventricular block, complete (principal); Z95.0 Presence of cardiac pacemaker
CPT/HCPCS: 93294

== ENCOUNTER → 2024-01-29 23:59 | Outpatient (BNV) | payer BC, SELFPAY ==
--- NOTE | 2024-01-31 12:36 | MHC.OFFVIS ---
Intake Visit Reasons: Remote HF monitoring- [employer] Allergies regadenoson [From Lexiscan] Adverse Reaction (Severe, Verified 09/22/23 15:57) seizure type activity PFSH Medical History Vitamin D deficiency History of amputation of toe Obesity (BMI 30-39.9) Pure hypercholesterolemia Benign essential hypertension Combined systolic and diastolic congestive heart failure Chronic kidney disease (CKD), stage III (moderate) Diabetic foot ulcer with osteomyelitis Complete heart block CHF (congestive heart failure) BPH (benign prostatic hyperplasia) Proteinuria Hyperlipidemia Essential hypertension Normally functioning cardiac pacemaker present Chronic right heart failure Heart block CKD (chronic kidney disease) Hypertension Type 2 diabetes mellitus Pacemaker Surgical History Type 2 diabetes mellitus with other diabetic kidney complication History of cardiac pacemaker (~04/15/20) Family History Mother CVA (cerebral vascular accident) Diabetes Social History Housing: Apartment Alcohol intake: never Patient Tobacco Use Status: Never used Tobacco e-Cigarette/Vaping Use: Never Used Second Hand Smoke Exposure: Yes service: Yes Current occupational status: employed Cognitive needs: No Hearing needs: No Vision needs: No Office Procedures Cardiac Device Check Cardiac Device Check Details: Date of service- 01/29/2024; based on impedance data and physiological variables, there is no evidence of worsening congestive heart failure. [id number] Cardiac Device Interrogation, cardio physiologic monitor Procedure code (CPT) selection complete Assessment & Plan Assessment & Plan (1) Cardiomyopathy: Code(s): I42.9 - Cardiomyopathy, unspecified Category: Medical Plan x Coding Level of Care Code Procedure Only Diagnoses Cardiomyopathy I42.9 CPT Codes Cardiac Device Check - Cardiac Device 15: [id number] Cardiac Device Interrogation, cardio physiologic monitor ([id number])
== END ==
PROVIDERS: PCP Internal Medicine; Visit Provider Internal Medicine
DX: I42.9 Cardiomyopathy, unspecified (principal); Z95.0 Presence of cardiac pacemaker
CPT/HCPCS: 93297

== ENCOUNTER 2024-02-15 15:02 | Outpatient (AMB) | payer BC, SELFPAY ==
--- NOTE | 2024-02-15 15:16 | MHC.PC.OV ---
Vital Signs 02/15/24 15:18 Height 5 ft 9 in Weight 248 lb 6 oz BMI 36.7 BP 118/60 Blood Pressure Location Lt brachial Position Sitting Pulse 78 Pulse Source Pulse Oximeter Pulse Oximetry (%) 98 Oxygen Delivery Method Room Air Intake Visit Reasons: dm follow up Intake Note: Patient is here to follow up on DM and lab results. Pediatric Audiologist Required: No Enamel Sprayer: Not Required per policy Accompanied by: Self / Same As Patient Allergies regadenoson [From Lexiscan] Adverse Reaction (Severe, Verified 02/16/24 06:10) seizure type activity Medication List - Last Reconciled 02/16/24 by Daniel Najera MD alcohol swabs (BD Alcohol Swabs) 1 pad topical QID amlodipine 10 mg PO DAILY 90 days atorvastatin 20 mg PO BEDTIME 90 days blood sugar diagnostic (OneTouch Verio test strips) 1 strip miscellaneous TID 30 days blood sugar diagnostic (OneTouch Ultra Test strips) As directed -tests 4 X/day blood-glucose meter (Theron PharmaceuticalsTouch Ultra2 Meter) As directed tests 4 X/day bumetanide 2 mg PO BID 30 days cholecalciferol (vitamin D3) 50 mcg PO DAILY 90 days dulaglutide (Trulicity) 0.75 mg (0.5 mL) subcut QWEEK hydralazine 100 mg PO TID 90 days insulin glargine (Basaglar KwikPen U-100 Insulin) 10 units (0.1 mL) subcut QPM 30 days isosorbide mononitrate ER 60 mg PO DAILY 90 days labetalol 100 mg PO BID lancets As directed lancets (OneTouch UltraSoft Lancets) As directed-tests 4 X/day pen needle, diabetic As directed spironolactone 50 mg (2 x 25 mg) PO QAM tamsulosin 0.4 mg PO DAILY 90 days Tobacco use date assessed: 02/15/24 Dental Screening Dental Screen Date: 02/15/24 Did you have a dental visit in the last 12 months?: No Did you have a dental problem in the last 6 months where you did not have access to dental care?: No Was dental information given to patient?: Patient has dentist (Partial Dentures) HPI dm follow up HPI Details 59 yr old male presents to the office for a follow up visit. Pt's PCP is away and I am substituting in his place. Patient is compliant with all medications. Recently had BW done. Requesting a colonoscopy. Would like to see his gis database administrator for evaluation of his heart block. Able to function and do all ADL's [facility] Medical History Vitamin D deficiency Obesity (BMI 30-39.9) Pure hypercholesterolemia Benign essential hypertension Combined systolic and diastolic congestive heart failure Chronic kidney disease (CKD), stage III (moderate) Diabetic foot ulcer with osteomyelitis Complete heart block CHF (congestive heart failure) BPH (benign prostatic hyperplasia) Proteinuria Hyperlipidemia Essential hypertension Normally functioning cardiac pacemaker present Chronic right heart failure Heart block CKD (chronic kidney disease) Hypertension Type 2 diabetes mellitus Pacemaker Surgical History History of amputation of toe Type 2 diabetes mellitus with other diabetic kidney complication History of cardiac pacemaker (~04/15/20) Family History Mother CVA (cerebral vascular accident) Diabetes Social History Housing: Apartment Alcohol intake: never Patient Tobacco Use Status: Never used Tobacco e-Cigarette/Vaping Use: Never Used Second Hand Smoke Exposure: Yes service: Yes Current occupational status: employed Cognitive needs: No Hearing needs: No Vision needs: No Questionnaire PHQ-9 Over the last 2 weeks, how often have you been bothered by any of the following problems? 1. Little interest or pleasure in doing things: not at all 2. Feeling down, depressed, or hopeless: not at all 3. Trouble falling or staying asleep, or sleeping too much: not at all 4. Feeling tired or having little energy: not at all 5. Poor appetite or overeating: not at all 6. Feeling bad about yourself - or that you are a failure or have let yourself or your family down: not at all 7. Trouble concentrating on things, such as reading the newspaper or watching television: not at all 8. Moving or speaking so slowly that other people could have noticed. Or the opposite - being so fidgety or restless that you have been moving around a lot more than usual: not at all 9. Thoughts that you would be better off or of hurting yourself in some way: not at all Total score: 0 Depression Screening Interpretation: Negative Depression Screening Done: Yes Source: Developed by Drs. Guille Fam, Sohan Camp and colleagues, with an educational fausto from [employer]. Thrive Questionnaire Date Thrive assessed: 02/15/24 I am a: Patient What is your living situation today?: I have a steady place to live Within the past 12 months, did the food you bought not last and you didn't have the money to get more?: Never true Within the past 12 months, did you worry whether your food would run out before you got money to buy more?: Never true Do you have trouble paying for medicines?: No Do you have trouble getting transportation to medical appointments?: No Do you have trouble paying your heating and electricity bill?: No Do you have trouble taking care of your child, family member or friend?: No Do you have trouble with day-to-day activities such as bathing, preparing meals, shopping, managing finances, etc.?: No Are you currently unemployed and looking for a job?: No Are you interested in more education?: No Currently or been in a relationship where the following occur: no concerns reported THRIVE Score: 0 AUDIT C Alcohol Use Questionnaire (AUDIT-C) 1. How often do you have a drink containing alcohol?: Never Total Score: 0 NEETA-7 AMB Questionnaire NEETA-7 Date NEETA - 7 assessed: 02/15/24 Feeling nervous, anxious, or on edge: 0 = Not at all Not being able to stop or control worryin = Not at all Worrying too much about different things: 0 = Not at all Trouble relaxin = Not at all Being so restless that it is hard to sit still: 0 = Not at all Becoming easily annoyed or irritable: 0 = Not at all Feeling afraid as if something awful might happen: 0 = Not at all Total NEETA-7 score (0-4 normal; 5-9 mild; 10-14 moderate; 15-21 severe): 0 Source: Developed by Simran Blackwood Kurt Kroenke and colleagues, with an educational fausto from [employer]. Physical exam (Primary Care) Vital Signs: Last Vital Signs Pulse 78 02/15/24 15:18 BP 118/60 02/15/24 15:18 Pulse Ox 98 02/15/24 15:18 Oxygen Delivery Method Room Air 02/15/24 15:18 BMI result Body Mass Index 36.7 Tobacco/Smoking Status: Tobacco use Status Tobacco use date assessed 02/15/24 02/15/24 15:25 Patient Tobacco Use Status Never used Tobacco 02/15/24 15:25 e-Cigarette/Vaping Use Never Used 02/15/24 15:25 PHQ-9: PHQ-9 Score PHQ-9: Total score 0 02/15/24 15:25 Depression Screening Interpretation: Negative Thrive Assessment: Date of Thrive Assessment Date Thrive assessed 02/15/24 02/15/24 15:25 Currently or been in a relationship where the following occur: no concerns reported Const General: cooperative and healthy appearing Nutritional Appearance: well nourished Orientation/consciousness: patient oriented x3 Limitations: no limitations HENMT Head: Yes normal to inspection Eyes General: appearance normal, both eyes and all related structures Neck Neck: Yes normal visual inspection Chest Chest palpation & inspection: normal palpation of entire chest wall Resp Effort & Inspection: normal respiratory effort Neuro General: patient oriented x3 Results Reviewed Results Reviewed: Blood work results including A1c revd with patient. Assessment and Plan Assessment & Plan (1) NSVT (nonsustained ventricular tachycardia): Code(s): I47.29 - Other ventricular tachycardia Plan: Condition is stable. A cardiology consult has been scheduled as per patient's request. (2) Diabetic foot ulcer with osteomyelitis: Comment: S/P amputation of right 5th toe on 12/25/[address] De Guzman Code(s): E11.621 - Type 2 diabetes mellitus with foot ulcer; E11.69 - Type 2 diabetes mellitus with other specified complication; L97.509 - Non-pressure chronic ulcer of other part of unspecified foot with unspecified severity; M86.9 - Osteomyelitis, unspecified Plan: Condition is stable (3) Type 2 diabetes mellitus with other diabetic kidney complication: Code(s): E11.29 - Type 2 diabetes mellitus with other diabetic kidney complication Plan: A1c is in range. Continue insulin at same dosage. Orders: Referrals Gastroenterology Referral Z12.11 - Encounter for screening for malignant neoplasm of colon Coding Level of Care Code Est Pt Level 4 (70110) Complex EM visit Add On G2211 Diagnoses NSVT (nonsustained ventricular tachycardia) I47.29 Diabetic foot ulcer with osteomyelitis E11.621; E11.69; L97.509; M86.9 Type 2 diabetes mellitus with other diabetic kidney complication E11.29
[2024-02-15 15:18] VITALS: BP 118/60; PULSE 78; O2SAT 98; BMI 36.7
== END 2024-02-15 15:52 | disposition home or self-care (01) ==
PROVIDERS: PCP Internal Medicine; Visit Provider Internal Medicine
DX: I47.29 Other ventricular tachycardia (principal); E11.621 Type 2 diabetes mellitus with foot ulcer; E11.69 Type 2 diabetes mellitus with other specified complication; L97.509 Non-pressure chronic ulcer of other part of unspecified foot with unspecified severity; M86.9 Osteomyelitis, unspecified; E11.29 Type 2 diabetes mellitus with other diabetic kidney complication
CPT/HCPCS: 99214

== ENCOUNTER → 2024-03-01 23:59 | Outpatient (BNV) | payer BC, SELFPAY ==
--- NOTE | 2024-03-06 19:41 | MHC.OFFVIS ---
Intake Visit Reasons: Remote HF monitoring- Biotronik Allergies regadenoson [From Lexiscan] Adverse Reaction (Severe, Verified 02/16/24 06:10) seizure type activity PFSH Medical History Vitamin D deficiency Obesity (BMI 30-39.9) Pure hypercholesterolemia Benign essential hypertension Combined systolic and diastolic congestive heart failure Chronic kidney disease (CKD), stage III (moderate) Diabetic foot ulcer with osteomyelitis Complete heart block CHF (congestive heart failure) BPH (benign prostatic hyperplasia) Proteinuria Hyperlipidemia Essential hypertension Normally functioning cardiac pacemaker present Chronic right heart failure Heart block CKD (chronic kidney disease) Hypertension Type 2 diabetes mellitus Pacemaker Surgical History History of amputation of toe Type 2 diabetes mellitus with other diabetic kidney complication History of cardiac pacemaker (~04/15/20) Family History Mother CVA (cerebral vascular accident) Diabetes Social History Housing: Apartment Alcohol intake: never Patient Tobacco Use Status: Never used Tobacco e-Cigarette/Vaping Use: Never Used Second Hand Smoke Exposure: Yes service: Yes Current occupational status: employed Cognitive needs: No Hearing needs: No Vision needs: No Office Procedures Cardiac Device Check Cardiac Device Check Details: Date of service- 03/01/2024; based on impedance data and physiological variables, there is no evidence of worsening congestive heart failure. [id number] Cardiac Device Interrogation, cardio physiologic monitor Procedure code (CPT) selection complete Assessment & Plan Assessment & Plan (1) Chronic right heart failure: Code(s): I50.812 - Chronic right heart failure Category: Medical Plan x Coding Level of Care Code Procedure Only Diagnoses Chronic right heart failure I50.812 CPT Codes Cardiac Device Check - Cardiac Device 15: [id number] Cardiac Device Interrogation, cardio physiologic monitor ([id number])
== END ==
PROVIDERS: PCP Internal Medicine; Visit Provider Internal Medicine
DX: I50.812 Chronic right heart failure (principal); Z95.0 Presence of cardiac pacemaker
CPT/HCPCS: 93297

== ENCOUNTER 2024-03-06 07:30 | Outpatient (AMB) | payer BC, SELFPAY ==
--- NOTE | 2024-03-06 07:51 | A.OFFVIS_ITS ---
Intake Intake Visit Reasons: T2DM Allergies regadenoson [From Lexiscan] Adverse Reaction (Severe, Verified 02/16/24 06:10) seizure type activity HPI Comprehensive Diabetes Asmnt Most Recent Diabetes Results: Hemoglobin A1c 5.8 % 04/09/20 Microalb/Creat Ratio 40.1 ug/mg cr (<30) H 08/24/23 Cholesterol 124 mg/dL (<200) 01/06/24 HDL Cholesterol 37 mg/dL (>40) L 01/06/24 Triglycerides 63 mg/dL (<150) 01/06/24 Creatinine 1.86 mg/dL (0.5-1.4) H 01/06/24 Blood Urea Nitrogen 28 mg/dL (9-16) H 01/06/24 Sodium 139 mmol/L (135-145) 01/06/24 Potassium 4.7 mmol/L (3.3-5.1) 01/06/24 Chloride 104 mmol/L (96-108) 01/06/24 Carbon Dioxide 30 mmol/L (22-29) H 01/06/24 Calcium 10.0 mg/dL (8.4-10.2) 01/06/24 AST 20 U/L (5-37) 01/06/24 ALT 21 U/L (0-40) 01/06/24 Total Protein 7.8 g/dL (6.5-8.0) 01/06/24 Albumin 3.9 g/dL (3.5-5.0) 01/06/24 [facility] Medical History Vitamin D deficiency Obesity (BMI 30-39.9) Pure hypercholesterolemia Benign essential hypertension Combined systolic and diastolic congestive heart failure Chronic kidney disease (CKD), stage III (moderate) Diabetic foot ulcer with osteomyelitis Complete heart block CHF (congestive heart failure) BPH (benign prostatic hyperplasia) Proteinuria Hyperlipidemia Essential hypertension Normally functioning cardiac pacemaker present Chronic right heart failure Heart block CKD (chronic kidney disease) Hypertension Type 2 diabetes mellitus Pacemaker Surgical History History of amputation of toe Type 2 diabetes mellitus with other diabetic kidney complication History of cardiac pacemaker (~04/15/20) Family History Mother CVA (cerebral vascular accident) Diabetes Social History Housing: Apartment Alcohol intake: never Patient Tobacco Use Status: Never used Tobacco e-Cigarette/Vaping Use: Never Used Second Hand Smoke Exposure: Yes service: Yes Current occupational status: employed Cognitive needs: No Hearing needs: No Vision needs: No Assessment & Plan Assessment & Plan (1) Type 2 diabetes mellitus with other diabetic kidney complication: Code(s): E11.29 - Type 2 diabetes mellitus with other diabetic kidney complication Plan: Learning objectives: The patient was provided with verbal and written education on the following topics as outlined below. The patient met all learning objectives and was able to verbalize understanding and provide teach back of education topics discussed . The patient was provided with the opportunity to ask questions and all questions were answered. Patient Assessment Patient questions/concerns patient's last A1c on 12/29/2023 7.7%, patient has stage 3 CKD Patient was referred back to PCP in 02/2023. Since then patient has been diagnosed with Charcots, and has had worsening CKD. He is only checking his glucose a couple times a week. Recommended to patient he consider obtaining CGM Patient is currently on Trulicity 0.75 mg Basaglar 10 units daily Discussed with patient obtaining CGM: Instructed Pt on what CGM can and can't do CGM Can: Give Pt minute by minute reading of glucose levels Displays glucose trend arrows that represents the direction glucose levels are fluctuating Give insight on decisions about how to dose insulin CGM cannot: Improve glucose control on its own Completely eliminate the need for all finger sticks Make dosing decision for you Patient expressed interest in coming back to endocrine clinic, reports he will discuss CGM with provider at that time. Insulin/Injectables (If applicable) * Storage/care of insulin * Injection sites * Site rotation * Onset, peak, duration * Drawing up insulin * Injecting insulin/other injectables * Sharps disposal Continuous blood glucose monitoring (if applicable) Lifestyle * Work * Travel * Stress management * Problem solving Know your goals * A1C * Blood sugar targets * Blood pressure * Cholesterol/LDL Urine microalbumin Smart Goal Assessment: Patient will resume Trulicity 3 mg weekly Pt met goal:Pt 75% of the time Patient Response to instructions: Comprehension of Instructions: Fair Readiness to make changes: Contemplation How confident they feel about making changes: Fair Portions of this note were created using voice recognition software, please excuse any words or phrases that may have been misinterpreted. Patient Instructions: The most common treatments for Charcot foot include: Taking weight off your foot Putting less weight and pressure on your affected foot reduces swelling and prevents injuries like bone fractures from getting worse. You might need: * A cast or brace. * Crutches. * A walker. * A wheelchair. Orthotics and footwear changes Orthotics are shoe inserts that support your feet and keep your toes in the correct position. You might need custom-made inserts or an ankle brace. Your provider will recommend orthotics or special shoes with extra depth to help relieve extra pressure on your feet and support you when you walk. Physical therapy Healthcare provider who helps you improve how your body performs physical movements. They?ll help you manage symptoms like pain, stiffness and discomfort that make it hard to move. They?ll also develop a customized set of exercises and movements to help you move your body. Coding Level of Care Code Est Pt Level 1 (01462) Diagnoses Type 2 diabetes mellitus with other diabetic kidney complication E11.29
== END 2024-03-06 08:02 | disposition home or self-care (01) ==
PROVIDERS: PCP Internal Medicine; Visit Provider Registered Nurse Diabetes Educator
DX: E11.29 Type 2 diabetes mellitus with other diabetic kidney complication (principal)

== ENCOUNTER → 2024-03-06 07:30 | Outpatient (BNVA) | payer BC, SELFPAY | PROVIDERS: PCP Internal Medicine; Visit Provider Registered Nurse Diabetes Educator | DX: E11.29 Type 2 diabetes mellitus with other diabetic kidney complication (principal) | CPT/HCPCS: 99211 ==

== ENCOUNTER 2024-04-03 08:55 | Outpatient (AMB) | payer BC, SELFPAY ==
--- NOTE | 2024-04-03 08:56 | A.OFFVIS_ITS ---
Vital Signs 04/03/24 09:00 Height 5 ft 9 in Weight 244 lb 11.41 oz BMI 36.1 BP 132/86 Blood Pressure Location Rt brachial Position Sitting Pulse 86 Pulse Source Pulse Oximeter Intake Visit Reasons: T2DM/LVM Intake Note: New Patient presents today to established treatment for Diabetes Type 2: Last Diabetic Eye exam: DUE Last Podiatry Exam: 03/19/2024 Most recent HbA1c: 6.7%, 04/03/2024 Random Glucose: 119mg/dL, Today Admin Dir Required: No Accompanied by: Self / Same As Patient Allergies regadenoson [From Lexiscan] Adverse Reaction (Severe, Verified 04/03/24 09:02) seizure type activity HPI Comments Details: Patient is a 59 yo male with DM type 2 diagnosed at age 40 years of age, who presents for for continued management of diabetes. He was discharged to primary care after his last visit withDr. Jacobson on 03/08/2023. He was recently diagnosed with worsening CKD and Charcot. He was last seen by Sandy GALARZA on 03/06/2024. At that time it was recommended that he go on a glucose sensor. A1c in the office today is 6.7%. 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, would like referral for opth sees cardiology regularly tobacco no alcohol no PFSH Medical History Vitamin D deficiency Obesity (BMI 30-39.9) Pure hypercholesterolemia Benign essential hypertension Combined systolic and diastolic congestive heart failure Chronic kidney disease (CKD), stage III (moderate) Diabetic foot ulcer with osteomyelitis Complete heart block CHF (congestive heart failure) BPH (benign prostatic hyperplasia) Proteinuria Hyperlipidemia Essential hypertension Normally functioning cardiac pacemaker present Chronic right heart failure Heart block CKD (chronic kidney disease) Hypertension Type 2 diabetes mellitus Pacemaker Surgical History History of amputation of toe Type 2 diabetes mellitus with other diabetic kidney complication History of cardiac pacemaker (~04/15/20) Family History Mother CVA (cerebral vascular accident) Diabetes Social History Housing: Apartment Alcohol intake: never Patient Tobacco Use Status: Never used Tobacco e-Cigarette/Vaping Use: Never Used Second Hand Smoke Exposure: Yes service: Yes Current occupational status: employed Cognitive needs: No Hearing needs: No Vision needs: No Physical Exam Vital Signs: Last Vital Signs Pulse 86 04/03/24 09:00 BP 132/86 04/03/24 09:00 BMI result Body Mass Index 36.1 Const General: cooperative Nutritional Appearance: obese Orientation/consciousness: oriented to person Neck Neck: Yes normal visual inspection Thyroid: Thyroid normal Cardio Jugular venous distension: no JVD Rate: regular rate Rhythm: regular rhythm Heart sounds: S1 normal heart sound present and S2 normal heart sound present Neuro General: oriented to person Extrem Other: no edema monofilament test absent, nail beds thickened but well trimmed, no maceration in between toes, no open areas, pulses positive Results AMB Hemoglobin A1c AMB Hemoglobin A1c 6.7 % Last Edit by VALENTINE Martinez on 04/03/24 09:18 Results Reviewed Results Reviewed: Laboratory Last Values Glucose (Clinic) 119 mg/dL (60-115) H 04/03/24 09:09 Hgb A1c (Clinic) 6.7 % (4.0-6.0) H 04/03/24 09:15 Laboratory Tests 08/24/23 10/14/23 01/06/24 11:13 15:03 11:46 Potassium 4.7 BUN 28 H Creatinine 1.93 H 1.86 H Estimated GFR 37 Fasting Glucose 135 H Estimat Average Glucose 174 Hemoglobin A1c % 7.7 H Calcium 10.0 D AST 20 ALT 21 Alkaline Phosphatase 83 Triglycerides 63 Cholesterol 124 LDL Cholesterol, Calc 75 25-OH Vitamin D Total 29.2 L TSH 1.13 Urine Creatinine 137.06 Urine Microalbumin 55.0 Microalb/Creat Ratio 40.1 H Assessment & Plan Assessment & Plan (1) Type 2 diabetes mellitus with other diabetic kidney complication: Code(s): E11.29 - Type 2 diabetes mellitus with other diabetic kidney complication Category: Surgical Plan: DM with A1c 6.7%. I recommended to patient that he go on a [employer] 3 Tish so that we can determine if his numbers are at a steady state or whether there is ups and Downs with his glucose readings. He will return in 1 week's time for training. Today we discussed discontinuing his insulin and either increase Trulicity to 1.5 mg weekly in order to promote weight loss which be helpful for his kidneys. Another consideration would be to start him on Jardiance as this would be of benefit for both his kidneys and cardiac status. He sees Cardiology regularly and he will schedule an appointment with his meteorological observer. Egfr is 37, Would like nephrology/cardiology to also look at this. If sglt-2 inhibitor is started his insulin dosing would need to be stopped and follow up labs done in 3-4 weeks. I am not certain if his diuretic would need adjusting as he may not get much diuresis given his lower A1C. With a sensor we will be better able to manage this transition. patient teaching: rule of 15's reviewed, patient does carry sugar source The patient was counseled to achieve a target A1C of 7% (154 avg) the fasting blood sugars should be 90-130 in the morning and less than 180 two hours after meals. Risks of uncontrolled diabetes discussed with the patient The patient was counseled to wear closed toe shoes, never walk barefooted and to inspect the feet daily. For any signs of infection or open wound patient should notify PCP or go to urgent care. Orders: Orders AMB Hemoglobin A1c Today E11.9 - Type 2 diabetes mellitus without complications Coding Level of Care Code Est Pt Level 5 (52415) Complex EM visit Add On G2211 Diagnoses Type 2 diabetes mellitus with other diabetic kidney complication E11.29 Time Spent (min) 60 Comment Time spent reviewing labs/previous provider notes, face to face, chart documentation
[2024-04-03 09:00] VITALS: BP 132/86; PULSE 86; BMI 36.1
[2024-04-03 09:13] LABS: Glucose, Whole Blood 119 mg/dL (60-115)
== END 2024-04-03 09:41 | disposition home or self-care (01) ==
PROVIDERS: PCP Internal Medicine; Visit Provider Nurse Practitioner Adult Health
DX: E11.29 Type 2 diabetes mellitus with other diabetic kidney complication (principal)
CPT/HCPCS: 99215; 99417

== ENCOUNTER → 2024-04-03 08:55 | Outpatient (BNVA) | payer BC, SELFPAY | PROVIDERS: PCP Internal Medicine; Visit Provider Nurse Practitioner Adult Health | DX: E11.29 Type 2 diabetes mellitus with other diabetic kidney complication (principal) | CPT/HCPCS: 82947; 83036 ==

== ENCOUNTER 2024-04-13 12:48 | Outpatient (AMB) | payer BC, SELFPAY ==
--- NOTE | 2024-04-13 12:51 | MHC.OFFVIS ---
Vital Signs 04/13/24 12:56 Height 5 ft 9 in Weight 248 lb 3.848 oz BMI 36.7 BP 112/64 Blood Pressure Location Rt brachial Position Sitting Pulse 86 Pulse Source Pulse Oximeter Intake Visit Reasons: T2DM/LVM Intake Note: Patient presents today for a 1 week follow-up on Type 2 Diabetes Mellitus: Last Diabetic Eye exam: DUE Last Podiatry Exam: 03/19/2024 Most recent HbA1c: 6.7%, 04/03/2024 Random Glucose: 179 mg/dL, Today Tobacco Wetter Required: No Accompanied by: Self / Same As Patient Allergies regadenoson [From Lexiscan] Adverse Reaction (Severe, Verified 04/13/24 12:59) seizure type activity HPI Comments Details: Patient is a 59 yo male with DM type 2 diagnosed at age 40 years of age, who presents for for continued management of diabetes. He was discharged to primary care after his last visit withDr. Jacobson on 03/08/2023. I saw him in clinic several weeks ago and he returns today for sensor training, He was recently diagnosed with worsening CKD and Charcot. A1c i is 6.7%. 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, would like referral for opth sees cardiology regularly tobacco no alcohol no PFSH Medical History Vitamin D deficiency Obesity (BMI 30-39.9) Pure hypercholesterolemia Benign essential hypertension Combined systolic and diastolic congestive heart failure Chronic kidney disease (CKD), stage III (moderate) Diabetic foot ulcer with osteomyelitis Complete heart block CHF (congestive heart failure) BPH (benign prostatic hyperplasia) Proteinuria Hyperlipidemia Essential hypertension Normally functioning cardiac pacemaker present Chronic right heart failure Heart block CKD (chronic kidney disease) Hypertension Type 2 diabetes mellitus Pacemaker Surgical History History of amputation of toe Type 2 diabetes mellitus with other diabetic kidney complication History of cardiac pacemaker (~04/15/20) Family History Mother CVA (cerebral vascular accident) Diabetes Social History Housing: Apartment Alcohol intake: never Patient Tobacco Use Status: Never used Tobacco e-Cigarette/Vaping Use: Never Used Second Hand Smoke Exposure: Yes service: Yes Current occupational status: employed Cognitive needs: No Hearing needs: No Vision needs: No Physical Exam Vital Signs: Last Vital Signs Pulse 86 04/13/24 12:56 BP 112/64 04/13/24 12:56 BMI result Body Mass Index 36.7 Const General: cooperative and healthy appearing Nutritional Appearance: overweight Limitations: no limitations Neck Neck: Yes normal visual inspection Resp Effort & Inspection: normal respiratory effort Results Reviewed Results Reviewed: Laboratory Last Values Glucose (Clinic) 179 mg/dL (60-115) H 04/13/24 13:04 Assessment & Plan Assessment & Plan (1) Type 2 diabetes mellitus with other diabetic kidney complication: Code(s): E11.29 - Type 2 diabetes mellitus with other diabetic kidney complication Category: Surgical Plan: Unable to start patient on sensor today due to in compatibility with phone. He will return when he choudhury received FS 3 tish 3 reader and sensor. he will continue his current meds. Medications: New blood-glucose meter,continuous (FreeStyle Tish 3 [place]) As directed 1 ea 0RF blood-glucose sensor (FreeStyle Tish 3 Sensor device) As directed 2 ea 11RF E11.29 - Type 2 diabetes mellitus with other diabetic kidney complication Coding Level of Care Code Est Pt Level 3 (61848) Diagnoses Type 2 diabetes mellitus with other diabetic kidney complication E11.29 Time Spent (min) 20 Comment Time spent reviewing labs/previous provider notes, face to face, chart documentation
[2024-04-13 12:56] VITALS: BP 112/64; PULSE 86; BMI 36.7
[2024-04-13 13:10] LABS: Glucose, Whole Blood 179 mg/dL (60-115)
== END 2024-04-13 13:21 | disposition home or self-care (01) ==
PROVIDERS: PCP Internal Medicine; Visit Provider Nurse Practitioner Adult Health
DX: E11.29 Type 2 diabetes mellitus with other diabetic kidney complication (principal)
CPT/HCPCS: 99213

== ENCOUNTER → 2024-04-13 12:48 | Outpatient (BNVA) | payer BC, SELFPAY | PROVIDERS: PCP Internal Medicine; Visit Provider Nurse Practitioner Adult Health | DX: E11.29 Type 2 diabetes mellitus with other diabetic kidney complication (principal) | CPT/HCPCS: 82947 ==

== ENCOUNTER → 2024-04-19 23:59 | Outpatient (BNV) | payer BC, SELFPAY ==
--- NOTE | 2024-04-25 09:45 | MHC.OFFVIS ---
Intake Visit Reasons: Remote HF monitoring- [employer]ik Allergies regadenoson [From Lexiscan] Adverse Reaction (Severe, Verified 04/13/24 12:59) seizure type activity [facility] Medical History Vitamin D deficiency Obesity (BMI 30-39.9) Pure hypercholesterolemia Benign essential hypertension Combined systolic and diastolic congestive heart failure Chronic kidney disease (CKD), stage III (moderate) Diabetic foot ulcer with osteomyelitis Complete heart block CHF (congestive heart failure) BPH (benign prostatic hyperplasia) Proteinuria Hyperlipidemia Essential hypertension Normally functioning cardiac pacemaker present Chronic right heart failure Heart block CKD (chronic kidney disease) Hypertension Type 2 diabetes mellitus Pacemaker Surgical History History of amputation of toe Type 2 diabetes mellitus with other diabetic kidney complication History of cardiac pacemaker (~04/15/20) Family History Mother CVA (cerebral vascular accident) Diabetes Social History Housing: Apartment Alcohol intake: never Patient Tobacco Use Status: Never used Tobacco e-Cigarette/Vaping Use: Never Used Second Hand Smoke Exposure: Yes service: Yes Current occupational status: employed Cognitive needs: No Hearing needs: No Vision needs: No Office Procedures Cardiac Device Check Cardiac Device Check Details: Date of service- 04/19/2024; based on impedance data and physiological variables, there is no evidence of worsening congestive heart failure. [id number] Cardiac Device Interrogation, cardio physiologic monitor Procedure code (CPT) selection complete Assessment & Plan Assessment & Plan (1) Cardiomyopathy: Code(s): I42.9 - Cardiomyopathy, unspecified Category: Medical Plan x Coding Level of Care Code Procedure Only Diagnoses Cardiomyopathy I42.9 CPT Codes Cardiac Device Check - Cardiac Device 15: [id number] Cardiac Device Interrogation, cardio physiologic monitor ([id number])
== END ==
PROVIDERS: PCP Internal Medicine; Visit Provider Internal Medicine
DX: I42.9 Cardiomyopathy, unspecified (principal); Z95.0 Presence of cardiac pacemaker
CPT/HCPCS: 93297

== ENCOUNTER → 2024-04-23 23:59 | Outpatient (BNV) | payer BC, SELFPAY ==
--- NOTE | 2024-04-26 09:14 | A.OFFVIS_ITS ---
Intake Visit Reasons: Remote device check- Biotronik Allergies regadenoson [From Lexiscan] Adverse Reaction (Severe, Verified 04/13/24 12:59) seizure type activity [facility] Medical History Vitamin D deficiency Obesity (BMI 30-39.9) Pure hypercholesterolemia Benign essential hypertension Combined systolic and diastolic congestive heart failure Chronic kidney disease (CKD), stage III (moderate) Diabetic foot ulcer with osteomyelitis Complete heart block CHF (congestive heart failure) BPH (benign prostatic hyperplasia) Proteinuria Hyperlipidemia Essential hypertension Normally functioning cardiac pacemaker present Chronic right heart failure Heart block CKD (chronic kidney disease) Hypertension Type 2 diabetes mellitus Pacemaker Surgical History History of amputation of toe Type 2 diabetes mellitus with other diabetic kidney complication History of cardiac pacemaker (~04/15/20) Family History Mother CVA (cerebral vascular accident) Diabetes Social History Housing: Apartment Alcohol intake: never Patient Tobacco Use Status: Never used Tobacco e-Cigarette/Vaping Use: Never Used Second Hand Smoke Exposure: Yes service: Yes Current occupational status: employed Cognitive needs: No Hearing needs: No Vision needs: No Office Procedures Cardiac Device Check Cardiac Device Check Details: Date of service- 04/23/2024 ; Battery life 60%; normal lead parameters; AP 19%; TELEGRAPH OPERATOR 100%; no significant arrhythmias. Overall normal device function. [id number] Cardiac Device Interrogation, pacemaker Procedure code (CPT) selection complete Assessment & Plan Assessment & Plan (1) Complete heart block: Comment: S/P pacemaker insertion on 04/15/2020 Code(s): I44.2 - Atrioventricular block, complete Category: Medical (2) Chronic right heart failure: Code(s): I50.812 - Chronic right heart failure Category: Medical Plan x Coding Level of Care Code Procedure Only Diagnoses Complete heart block I44.2 Chronic right heart failure I50.812 CPT Codes Cardiac Device Check - Cardiac Device 12: [id number] Cardiac Device Interrogation, pacemaker ([id number])
== END ==
PROVIDERS: PCP Internal Medicine; Visit Provider Internal Medicine
DX: I44.2 Atrioventricular block, complete (principal); I50.812 Chronic right heart failure; Z95.0 Presence of cardiac pacemaker
CPT/HCPCS: 93294

== ENCOUNTER 2024-04-30 13:54 | Outpatient (AMB) | payer BC, SELFPAY ==
--- NOTE | 2024-04-30 14:14 | A.OFFVIS_ITS ---
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 Accompanied by: Self / Same As Patient Allergies regadenoson [From Lexiscan] Adverse Reaction (Severe, Verified 04/13/24 12:59) seizure type activity HPI Comprehensive Diabetes Asmnt Most Recent Diabetes Results: Hemoglobin A1c 5.8 % 04/09/20 Microalb/Creat Ratio 40.1 ug/mg cr (<30) H 08/24/23 Cholesterol 124 mg/dL (<200) 01/06/24 HDL Cholesterol 37 mg/dL (>40) L 01/06/24 Triglycerides 63 mg/dL (<150) 01/06/24 Creatinine 1.86 mg/dL (0.5-1.4) H 01/06/24 Blood Urea Nitrogen 28 mg/dL (9-16) H 01/06/24 Sodium 139 mmol/L (135-145) 01/06/24 Potassium 4.7 mmol/L (3.3-5.1) 01/06/24 Chloride 104 mmol/L (96-108) 01/06/24 Carbon Dioxide 30 mmol/L (22-29) H 01/06/24 Calcium 10.0 mg/dL (8.4-10.2) 01/06/24 AST 20 U/L (5-37) 01/06/24 ALT 21 U/L (0-40) 01/06/24 Total Protein 7.8 g/dL (6.5-8.0) 01/06/24 Albumin 3.9 g/dL (3.5-5.0) 01/06/24 [facility] Medical History Vitamin D deficiency Obesity (BMI 30-39.9) Pure hypercholesterolemia Benign essential hypertension Combined systolic and diastolic congestive heart failure Chronic kidney disease (CKD), stage III (moderate) Diabetic foot ulcer with osteomyelitis Complete heart block CHF (congestive heart failure) BPH (benign prostatic hyperplasia) Proteinuria Hyperlipidemia Essential hypertension Normally functioning cardiac pacemaker present Chronic right heart failure Heart block CKD (chronic kidney disease) Hypertension Type 2 diabetes mellitus Pacemaker Surgical History History of amputation of toe Type 2 diabetes mellitus with other diabetic kidney complication History of cardiac pacemaker (~07/28/20) Family History Mother CVA (cerebral vascular accident) Diabetes Social History Housing: Apartment Alcohol intake: never Patient Tobacco Use Status: Never used Tobacco e-Cigarette/Vaping Use: Never Used Second Hand Smoke Exposure: Yes service: Yes Current occupational status: employed Cognitive needs: No Hearing needs: No Vision needs: No Assessment & Plan Assessment & Plan (1) Type 2 diabetes mellitus with other diabetic kidney complication: Code(s): E11.29 - Type 2 diabetes mellitus with other diabetic kidney complication Plan: Patient at visit to set up an insert 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 Patient will reschedule appointment after CT scan Portions of this note were created using voice recognition software, please excuse any words or phrases that may have been misinterpreted. Coding Level of Care Code Est Pt Level 1 (42800) Diagnoses Type 2 diabetes mellitus with other diabetic kidney complication E11.29
== END 2024-04-30 14:22 | disposition home or self-care (01) ==
PROVIDERS: PCP Internal Medicine; Visit Provider Registered Nurse Diabetes Educator
DX: E11.29 Type 2 diabetes mellitus with other diabetic kidney complication (principal)

== ENCOUNTER → 2024-04-30 13:54 | Outpatient (BNVA) | payer BC, SELFPAY | PROVIDERS: PCP Internal Medicine; Visit Provider Registered Nurse Diabetes Educator | DX: E11.29 Type 2 diabetes mellitus with other diabetic kidney complication (principal) | CPT/HCPCS: 99211 ==

== ENCOUNTER 2024-05-09 12:38 | Outpatient (REF) | payer BC, SELFPAY ==
[2024-05-09 12:54] LABS: MANUAL DIFF FLAG NO
[2024-05-09 13:50] LABS: Basophils Absolute Auto 0.1 X10*3/uL (0.0-0.2); Basophils Percent Auto 0.9 % (0-2); Eosinophils Absolute Auto 0.1 X10*3/uL (0.0-0.4); Eosinophils Percent Auto 1.7 % (0-4); Hemoglobin 12.3 g/dl (14.0-18.0); Imm Gran Abs Auto 0.02 X10*3/uL (0.00-0.03); Imm Gran Pct Auto 0.3 % (0.0-0.4); Lymphocytes Absolute Auto 1.3 X10*3/uL (1.2-4.9); Lymphocytes Percent Auto 21.5 % (20-40); Mean Corpuscular HGB Conc 31.5 g/dl (31.0-36.0); Mean Corpuscular Hemoglobin 25.7 pg (27.0-33.0); Mean Corpuscular Volume 81.4 fL (80.0-98.0); Mean Platelet Volume 10.4 fL (9.4-12.4); Monocytes Absolute Auto 0.5 X10*3/uL (0.1-1.2); Monocytes Percent Auto 8.5 % (2-11); Neutrophils Absolute Auto 3.9 x10*3/uL (2.0-8.3); Neutrophils Percent Auto 67.1 % (45-73); Platelet Count 266 X10*3/uL (160-400); Red Blood Count 4.79 X10*6/uL (4.60-5.80); Red Cell Distribution Width 14.3 % (11.0-16.0); White Blood Count 5.9 X10*3/uL (4.8-10.8)
[2024-05-09 14:39] LABS: Parathyroid Hormone Intact 226.7 pg/mL (8.7-77.1)
[2024-05-09 14:44] LABS: Alanine Aminotransferase 27 U/L (0-40); Albumin Level 3.8 g/dL (3.5-5.0); Alkaline Phosphatase 65 U/L (39-117); Anion Gap 10 (12-20); Aspartate Amino Transferase 24 U/L (5-37); Bilirubin Total 0.3 mg/dL (0.0-1.0); Blood Urea Nitrogen 23 mg/dL (9-16); Calcium 9.1 mg/dL (8.4-10.2); Carbon Dioxide 28 mmol/L (22-29); Chloride 106 mmol/L (96-108); Estimated Glomerular Filt Rate 40; Glucose Random 115 mg/dL (60-115); Iron 54 mcg/dL (45-160); Percent Iron Saturation 24 % (15-50); Potassium 3.8 mmol/L (3.3-5.1); Sodium 140 mmol/L (135-145); Total Iron Binding Capacity 222 mcg/dL (228-428); Total Protein 7.5 g/dL (6.5-8.0); Unsaturated Iron Binding 168 ug/dL
[2024-05-09 14:57] LABS: Appearance Urine Clear; Color Urine Yellow; Glucose Urine UA Negative (Negative); Leukocyte Esterase Urine Negative (Negative); Nitrite Urine Negative (Negative); PH 5.5 (5.0-9.0); Urine Blood Negative (Negative); Urine Ketones Negative (Negative); Urine Protein Negative (Neg-Trace)
[2024-05-09 15:00] LABS: Ferritin 174 ng/mL (20-250)
[2024-05-09 16:37] LABS: Total Protein Urine Random 13 mg/dL (<12)
[2024-05-09 16:38] LABS: Creatinine Urine 105.84 mg/dL; Microalbum/Creatinine Ratio Ur 48.1 ug/mg cr (<30)
== END 2024-05-09 12:39 | disposition home or self-care (01) ==
LOC: HO.LAB 12:38
PROVIDERS: Absent Provider Internal Medicine; PCP Internal Medicine; Visit Provider Internal Medicine Hypertension Specialist
DX: N18.32 Chronic kidney disease, stage 3b (principal); N18.30 Chronic kidney disease, stage 3 unspecified; E11.9 Type 2 diabetes mellitus without complications
CPT/HCPCS: 36415; 80053; 81003; 82043; 82570; 82728; 83540; 83970; 84156; 85025; 85027

== ENCOUNTER 2024-05-10 14:04 | Outpatient (AMB) | payer BC, SELFPAY ==
[2024-05-10 14:35] VITALS: BP 112/62; PULSE 80; O2SAT 96; BMI 36.8
--- NOTE | 2024-05-10 14:35 | HO.NEPHOV ---
Vital Signs 05/10/24 14:35 Height 5 ft 9 in Weight 249 lb BMI 36.8 BP 112/62 Blood Pressure Location Rt brachial Position Sitting Pulse 80 Pulse Source Pulse Oximeter Pulse Oximetry (%) 96 Oxygen Delivery Method Room Air Intake Visit Reasons: R/S 04/19/2024/ Conf Treatment Manager Required: No Accompanied by: girlfriend Allergies regadenoson [From Lexiscan] Adverse Reaction (Severe, Verified 05/10/24 14:37) seizure type activity Medication List - Last Reconciled 05/10/24 by Seferino Liz MD alcohol swabs (BD Alcohol Swabs) 1 pad topical QID amlodipine 10 mg PO DAILY 90 days atorvastatin 20 mg PO BEDTIME 90 days blood sugar diagnostic (BoardVantageTouch Verio test strips) 1 strip miscellaneous TID 30 days blood sugar diagnostic (OneTouch Ultra Test strips) As directed -tests 4 X/day blood-glucose meter (WIV Labsuch Ultra2 Meter) As directed tests 4 X/day blood-glucose meter,continuous (FreeStyle Tish 3 Alliance) As directed blood-glucose sensor (FreeStyle Tish 3 Sensor device) As directed bumetanide 2 mg PO BID 30 days cholecalciferol (vitamin D3) 50 mcg PO DAILY 90 days dulaglutide (Trulicity) 0.75 mg (0.5 mL) subcut QWEEK hydralazine 100 mg PO TID 90 days insulin glargine (Basaglar KwikPen U-100 Insulin) 10 units (0.1 mL) subcut QPM 30 days isosorbide mononitrate ER 60 mg PO DAILY 90 days labetalol 100 mg PO BID lancets As directed lancets (BoardVantageTouch UltraSoft Lancets) As directed-tests 4 X/day pen needle, diabetic As directed spironolactone 50 mg (2 x 25 mg) PO QAM tamsulosin 0.4 mg PO DAILY 90 days HPI Comments Details: 58-year-old man with a history of diabetes mellitus and hypertension is here for evaluation of CKD. h/o CHF Moderate systolic dysfunction RV presurres were OK NO significant proteinuria PFSH Medical History Vitamin D deficiency Obesity (BMI 30-39.9) Pure hypercholesterolemia Benign essential hypertension Combined systolic and diastolic congestive heart failure Chronic kidney disease (CKD), stage III (moderate) Diabetic foot ulcer with osteomyelitis Complete heart block CHF (congestive heart failure) BPH (benign prostatic hyperplasia) Proteinuria Hyperlipidemia Essential hypertension Normally functioning cardiac pacemaker present Chronic right heart failure Heart block CKD (chronic kidney disease) Hypertension Type 2 diabetes mellitus Pacemaker Surgical History History of amputation of toe Type 2 diabetes mellitus with other diabetic kidney complication History of cardiac pacemaker (~04/15/20) Family History Mother CVA (cerebral vascular accident) Diabetes Social History Housing: Apartment Alcohol intake: never Patient Tobacco Use Status: Never used Tobacco e-Cigarette/Vaping Use: Never Used Second Hand Smoke Exposure: Yes service: Yes Current occupational status: employed Cognitive needs: No Hearing needs: No Vision needs: No Physical Exam Vital Signs: Last Vital Signs Pulse 80 05/10/24 14:35 BP 112/62 05/10/24 14:35 Pulse Ox 96 05/10/24 14:35 Oxygen Delivery Method Room Air 05/10/24 14:35 BMI result Body Mass Index 36.8 Awake. Comfortable. Neck is supple. Mucosa moist. Lungs bilateral scattered rhonchi. Heart S1-S2 heard no gallop. Abdomen soft. Extremities no edema. No involuntary movements. No myoclonus. Extrem General: Yes edema (Right > Left) Results Reviewed Nephrology Results: Hgb 12.3 g/dl (14.0-18.0) L 05/09/24 WBC 5.9 X10*3/uL (4.8-10.8) 05/09/24 Plt Count 266 X10*3/uL (160-400) 05/09/24 Sodium 140 mmol/L (135-145) 05/09/24 Potassium 3.8 mmol/L (3.3-5.1) 05/09/24 Chloride 106 mmol/L (96-108) 05/09/24 Carbon Dioxide 28 mmol/L (22-29) 05/09/24 BUN 23 mg/dL (9-16) H 05/09/24 Creatinine 1.76 mg/dL (0.5-1.4) H 05/09/24 Calcium 9.1 mg/dL (8.4-10.2) 05/09/24 PTH Intact 226.7 pg/mL (8.7-77.1) H 05/09/24 Urine Protein Negative mg/dL (Neg-Trace) 05/09/24 Urine Creatinine 105.84 mg/dL 05/09/24 Assessment & Plan Assessment & Plan (1) Chronic kidney disease (CKD), stage III (moderate): Code(s): N18.30 - Chronic kidney disease, stage 3 unspecified Category: Medical Qualifiers: Chronic kidney disease stage 3 subtype: stage 3b (GFR 30-44) Qualified Code(s): N18.32 - Chronic kidney disease, stage 3b Plan Middle-aged man with longstanding diabetes mellitus with CKD. Quintin most likely has diabetic kidney disease. No significnat proteinuria At this point the goal is to slow the progression of renal disease. Maintain A1c less than 7% and continue overt nephrotoxic agents including NSAIDs. We discussed importance of maintain blood pressure less than 130/80 mm Hg. He is on spironolactone for RAAS inhibition. And not made any changes in his medications today. REnal sonogram unremarkable Incidental Liver finding. Needs follow up Ordered CT Orders: Orders Basic Metabolic Panel 6 Months N18.32 - Chronic kidney disease, stage 3b CT abdomen wo IV con Today R16.0 - Hepatomegaly, not elsewhere classified Coding Level of Care Code Est Pt Level 4 (39791) Diagnoses Stage 3b chronic kidney disease N18.32 Chronic kidney disease stage 3 subtype: stage 3b (GFR 30-44)
== END 2024-05-10 14:51 | disposition home or self-care (01) ==
PROVIDERS: PCP Internal Medicine; Visit Provider Internal Medicine Hypertension Specialist
DX: N18.32 Chronic kidney disease, stage 3b (principal)
CPT/HCPCS: 99214

== ENCOUNTER → 2024-05-10 14:04 | Outpatient (BNVA) | payer BC, SELFPAY | PROVIDERS: PCP Internal Medicine; Visit Provider Internal Medicine Hypertension Specialist ==

== ENCOUNTER → 2024-05-28 23:59 | Outpatient (BNV) | payer BC, SELFPAY ==
--- NOTE | 2024-05-30 18:54 | MHC.OFFVIS ---
Intake Visit Reasons: Remote HF monitoring- [employer] Allergies regadenoson [From Lexiscan] Adverse Reaction (Severe, Verified 05/29/24 16:52) seizure type activity [facility] Medical History Vitamin D deficiency Obesity (BMI 30-39.9) Pure hypercholesterolemia Benign essential hypertension Combined systolic and diastolic congestive heart failure Chronic kidney disease (CKD), stage III (moderate) Diabetic foot ulcer with osteomyelitis Complete heart block CHF (congestive heart failure) BPH (benign prostatic hyperplasia) Proteinuria Hyperlipidemia Essential hypertension Normally functioning cardiac pacemaker present Chronic right heart failure Heart block CKD (chronic kidney disease) Hypertension Type 2 diabetes mellitus Pacemaker Surgical History History of amputation of toe Type 2 diabetes mellitus with other diabetic kidney complication History of cardiac pacemaker (~04/15/20) Family History Mother CVA (cerebral vascular accident) Diabetes Social History Housing: Apartment Alcohol intake: never Patient Tobacco Use Status: Never used Tobacco e-Cigarette/Vaping Use: Never Used Second Hand Smoke Exposure: Yes service: Yes Current occupational status: employed Cognitive needs: No Hearing needs: No Vision needs: No Office Procedures Cardiac Device Check Cardiac Device Check Details: Date of service- 05/28/2024; based on impedance data and physiological variables, there is no evidence of worsening congestive heart failure. [id number] Cardiac Device Interrogation, cardio physiologic monitor Procedure code (CPT) selection complete Assessment & Plan Assessment & Plan (1) Cardiomyopathy: Code(s): I42.9 - Cardiomyopathy, unspecified Category: Medical Plan x Coding Level of Care Code Procedure Only Diagnoses Cardiomyopathy I42.9 CPT Codes Cardiac Device Check - Cardiac Device 15: [id number] Cardiac Device Interrogation, cardio physiologic monitor ([id number])
== END ==
PROVIDERS: PCP Internal Medicine; Visit Provider Internal Medicine
DX: I50.9 Heart failure, unspecified (principal); Z95.0 Presence of cardiac pacemaker
CPT/HCPCS: 93297

== ENCOUNTER 2024-05-29 16:08 | Outpatient (AMB) | payer BC, SELFPAY ==
[2024-05-29 16:18] VITALS: BP 162/100; PULSE 86; O2SAT 97; BMI 37.1
--- NOTE | 2024-05-29 16:18 | A.OFFPC_ITS ---
Vital Signs 05/29/24 16:18 Height 5 ft 9 in Weight 251 lb BMI 37.1 BP 162/100 H Blood Pressure Location Lt brachial Position Sitting Pulse 86 Pulse Source Pulse Oximeter Pulse Oximetry (%) 97 Oxygen Delivery Method Room Air Intake Visit Reasons: 3mth f/u Legal Internship Required: No Accompanied by: Self / Same As Patient Allergies regadenoson [From Lexiscan] Adverse Reaction (Severe, Verified 05/29/24 16:52) seizure type activity Medication List - Last Reconciled 05/29/24 by Ronnell Glass MD alcohol swabs (BD Alcohol Swabs) 1 pad topical QID amlodipine 10 mg PO DAILY 90 days atorvastatin 20 mg PO BEDTIME 90 days blood sugar diagnostic (NanoGramTouch Verio test strips) 1 strip miscellaneous TID 30 days blood sugar diagnostic (OneTouch Ultra Test strips) As directed -tests 4 X/day blood-glucose meter (NanoGramTouch Ultra2 Meter) As directed tests 4 X/day blood-glucose meter,continuous (FreeStyle Tish 3 [place]) As directed blood-glucose sensor (FreeStyle Tish 3 Sensor device) As directed bumetanide 2 mg PO BID 30 days cholecalciferol (vitamin D3) 50 mcg PO DAILY 90 days dulaglutide (Trulicity) 0.75 mg (0.5 mL) subcut QWEEK 28 days hydralazine 100 mg PO TID 90 days insulin glargine (Basaglar KwikPen U-100 Insulin) 10 units (0.1 mL) subcut QPM 30 days isosorbide mononitrate ER 60 mg PO DAILY 90 days labetalol 100 mg PO BID lancets As directed lancets (NanoGramTouch UltraSoft Lancets) As directed-tests 4 X/day pen needle, diabetic As directed spironolactone 50 mg (2 x 25 mg) PO QAM tamsulosin 0.4 mg PO DAILY 90 days Tobacco use date assessed: 05/29/24 Dental Screening Dental Screen Date: 05/29/24 Did you have a dental visit in the last 12 months?: No Did you have a dental problem in the last 6 months where you did not have access to dental care?: No Was dental information given to patient?: Patient has dentist HPI 3mth f/u HPI Details Patient comes in today for his follow up visit States that he currently feels okay Since I last saw him on 09/07/2023 (he was seen by another provider in my place when he was here in January 2024), he had a follow up echocardiogram done in September 2023 due to a recent 10 seconds episode of non-sustained ventricular tachycardia seen on remote pacemaker monitoring that revealed a new cardiomyopathy with EF of 35-40%, mild LVH with no valvular abnormalities Last prior echo done 06/26/2020 showed normal EF He is unable to undergo a pharmacologic stress test due to having adverse reaction (seizure) to Regadenoson in the past and cardiology recommended that he undergo a diagnostic cardiac catheterization to evaluate for any obstructive coronary artery disease due to his recent cardiac arrhythmia Patient however was not willing to make any decision at the time and he wanted to discuss this with his family and with his director validation (Dr. Liz) first regarding this and he was advised to call cardiology back within a few days with his decision He ultimately decided to forgo further cardiac testing for now and to continue on his current meds, which included Bumex 2 mg BID, Aldactone 50 mg QD, Labetalol 100 mg BID, Hydralazine 100 mg TID and Isosorbide Mononitrate ER 60 mg QD, as well as remote cardiac monitoring He denies any headaches or dizziness Denies any exertional chest pains or increased SOB lately No nausea/vomiting, no abdominal pain No change in bowel habits noted He is currently still seeing podiatry for his foot issues and is still experiencing pain in his right foot - was apparently diagnosed with Charcot's joint of the right foot recently States that he had some follow up labs done a few weeks ago but these did not include a fasting lipid profile and appear to be orders from nephrology [facility] Medical History Vitamin D deficiency Obesity (BMI 30-39.9) Pure hypercholesterolemia Benign essential hypertension Combined systolic and diastolic congestive heart failure Chronic kidney disease (CKD), stage III (moderate) Diabetic foot ulcer with osteomyelitis Complete heart block CHF (congestive heart failure) BPH (benign prostatic hyperplasia) Proteinuria Hyperlipidemia Essential hypertension Normally functioning cardiac pacemaker present Chronic right heart failure Heart block CKD (chronic kidney disease) Hypertension Type 2 diabetes mellitus Pacemaker Surgical History History of amputation of toe Type 2 diabetes mellitus with other diabetic kidney complication History of cardiac pacemaker (~04/15/20) Family History Mother CVA (cerebral vascular accident) Diabetes Social History Housing: Apartment Alcohol intake: never Patient Tobacco Use Status: Never used Tobacco e-Cigarette/Vaping Use: Never Used Second Hand Smoke Exposure: Yes service: Yes Current occupational status: employed Cognitive needs: No Hearing needs: No Vision needs: No Questionnaire PHQ-9 Over the last 2 weeks, how often have you been bothered by any of the following problems? 1. Little interest or pleasure in doing things: not at all 2. Feeling down, depressed, or hopeless: not at all 3. Trouble falling or staying asleep, or sleeping too much: not at all 4. Feeling tired or having little energy: not at all 5. Poor appetite or overeating: not at all 6. Feeling bad about yourself - or that you are a failure or have let yourself or your family down: not at all 7. Trouble concentrating on things, such as reading the newspaper or watching television: not at all 8. Moving or speaking so slowly that other people could have noticed. Or the opposite - being so fidgety or restless that you have been moving around a lot more than usual: not at all 9. Thoughts that you would be better off or of hurting yourself in some way: not at all Total score: 0 Depression Screening Interpretation: Negative Depression Screening Done: Yes 14824 - PHQ-9 Billing: Yes Source: Developed by Drs. Guille Fam, Simran Mcginnis, Sohan Cardenas and colleagues, with an educational fausto from [employer]. Thrive Questionnaire Date Thrive assessed: 05/29/24 I am a: Patient What is your living situation today?: I have a steady place to live Within the past 12 months, did the food you bought not last and you didn't have the money to get more?: Never true Within the past 12 months, did you worry whether your food would run out before you got money to buy more?: Never true Do you have trouble paying for medicines?: No Do you have trouble getting transportation to medical appointments?: No Do you have trouble paying your heating and electricity bill?: No Do you have trouble taking care of your child, family member or friend?: No Do you have trouble with day-to-day activities such as bathing, preparing meals, shopping, managing finances, etc.?: No Are you currently unemployed and looking for a job?: No Are you interested in more education?: No Please select the resources that you would like help with: None Currently or been in a relationship where the following occur: No concerns reported THRIVE Score: 0 AUDIT C Alcohol Use Questionnaire (AUDIT-C) 1. How often do you have a drink containing alcohol?: Never 3. How often do you have six or more drinks on one occasion?: Never Total Score: 0 Score Reviewed/Action Taken: Yes NEETA-7 AMB Questionnaire NEETA-7 Date NEETA - 7 assessed: 05/29/24 Feeling nervous, anxious, or on edge: 0 = Not at all Not being able to stop or control worryin = Not at all Worrying too much about different things: 0 = Not at all Trouble relaxin = Not at all Being so restless that it is hard to sit still: 0 = Not at all Becoming easily annoyed or irritable: 0 = Not at all Feeling afraid as if something awful might happen: 0 = Not at all Total NEETA-7 score (0-4 normal; 5-9 mild; 10-14 moderate; 15-21 severe): 0 Source: Developed by Drs. Guille Fam, Simran Mcginnis, Sohan Cardenas and colleagues, with an educational fausto from [employer]. Review of Systems Const Denies chills, Denies fatigue, Denies fever(s) and Denies headache(s) ENT Denies dysphagia, Denies dizziness, Denies otalgia, Denies headache(s), Denies neck pain, Denies odynophagia and Denies sore throat Card Denies chest pain, Denies palpitations and Denies dyspnea Resp Denies cough and Denies dyspnea GI Denies abdominal pain, Denies constipation, Denies dysphagia, Denies heartburn, Denies diarrhea, Denies nausea, Denies odynophagia and Denies vomiting Denies dysuria, Denies nocturia and Denies urinary frequency Musc Denies back pain, Reports arthralgias (right ankle and right foot), Denies joint swelling and Denies neck pain Skin/Breast Denies lesions and Denies rash Neuro Denies dizziness and Denies headache(s) Endo Denies fatigue and Denies palpitations Physical exam (Primary Care) Vital Signs: Last Vital Signs Pulse 86 05/29/24 16:18 BP 162/100 H 05/29/24 16:18 Pulse Ox 97 05/29/24 16:18 Oxygen Delivery Method Room Air 05/29/24 16:18 BMI result Body Mass Index 37.1 Tobacco/Smoking Status: Tobacco use Status Tobacco use date assessed 05/29/24 05/29/24 16:20 Patient Tobacco Use Status Never used Tobacco 05/29/24 16:20 e-Cigarette/Vaping Use Never Used 05/29/24 16:20 PHQ-9: PHQ-9 Score PHQ-9: Total score 0 05/29/24 16:56 Depression Screening Interpretation: Negative Thrive Assessment: Date of Thrive Assessment Date Thrive assessed 05/29/24 05/29/24 16:20 Currently or been in a relationship where the following occur: No concerns reported Const General: no acute distress and alert HENMT Ears: TM's normal bilaterally and EAC's normal Throat: Yes posterior oropharynx normal and Yes tonsils normal (no TP congestion) Neck Neck: Yes no lymphadenopathy and Yes supple Thyroid: Thyroid normal Resp Auscultation: clear to auscultation bilaterally, no rales and no wheezes Cardio Rate: regular rate Rhythm: regular rhythm Heart sounds: no murmurs GI Palpation (GI): Soft to palpation and nontender Auscultation: normal bowel sounds General: Yes no CVA tenderness Back/Spine/Pelvis Back: no CVA tenderness Thoracic/Lumbar Spine: No lumbar spinal tenderness Skin Rashes: no rashes Extrem Other: 2+ edema noted over the right lower extremity - edema is non-pitting Results Reviewed Results Reviewed: Laboratory Tests 04/03/24 05/09/24 05/09/24 09:15 12:50 12:52 WBC 5.9 Hgb 12.3 L Hct 39.0 L Plt Count 266 Sodium 140 Potassium 3.8 Creatinine 1.76 H Estimated GFR 40 Random Glucose 115 Hgb A1c (Clinic) 6.7 H Calcium 9.1 D Iron 54 TIBC 222 L % Saturation 24 Unsat Iron Binding 168 Ferritin 174 AST 24 ALT 27 PTH Intact 226.7 H Ur Specific [place] 1.010 Urine Protein Negative Urine Glucose (UA) Negative Urine Blood Negative Urine Nitrite Negative Ur Leukocyte Esterase Negative Microalb/Creat Ratio 48.1 H Assessment and Plan Assessment & Plan (1) Type 2 diabetes mellitus with other diabetic kidney complication: Code(s): E11.29 - Type 2 diabetes mellitus with other diabetic kidney complication Plan: His in-office HgbA1c was at 6.7% when it was most recently checked a couple of months ago on 04/03/2024 (his HgbA1c was at 7.5% on his labs done a couple of weeks ago (was previously at 7.7% back in December 2023) - goal is <7.0% Reinforced diabetic diet Continue Basaglar 10 units Q HS and Trulicity 0.75 mg SQ once a week Metformin was discontinued last year due to his declining renal function - serum creatinine was at 1.92 back in September 2022 but this has since improved slightly Follow up with product engineering manager as scheduled for diet counseling and diabetic teaching and with endocrinology as scheduled for continuing management of his diabetes (2) Chronic kidney disease (CKD), stage III (moderate): Code(s): N18.30 - Chronic kidney disease, stage 3 unspecified Qualifiers: Chronic kidney disease stage 3 subtype: stage 3b (GFR 30-44) Qualified Code(s): N18.32 - Chronic kidney disease, stage 3b Plan: Will continue to monitor his renal function and GFR closely - his renal function appears to be stable again now [place] [facility] [place] (3) Benign essential hypertension: Code(s): I10 - Essential (primary) hypertension Plan: Reinforced low sodium diet - goal is systolic BP of at least 130 mm or less Continue Amlodipine 10 mg QD, Hydralazine 50 mg 2 tablets 3 times a day, Spironolactone 50 mg QD and Labetalol 100 mg BID (4) Combined systolic and diastolic congestive heart failure: Code(s): I50.40 - Unspecified combined systolic (congestive) and diastolic (congestive) heart failure Qualifiers: Heart failure chronicity: unspecified Qualified Code(s): I50.40 - Unspecified combined systolic (congestive) and diastolic (congestive) heart failure Plan: Patient currently appears compensated Reinforced fluid restriction Continue Isosorbide Mononitrate ER 60 mg QD and Bumetanide 2 mg BID He was recommended to undergo cardiac catheterization by cardiology back in September 2023 to evaluate for any obstructive coronary artery disease when follow up echocardiogram done due to a recent brief episode of NSVT seen on remote pacemaker monitoring that revealed a new cardiomyopathy with EF of 35-40% and mild LVH with no valvular abnormalities (last prior echo on 06/26/2020 showed normal EF) He is unable to undergo a pharmacologic stress test due to having adverse reaction (seizure) to Regadenoson in the past He ultimately declined to go for further cardiac testing at the time and decided to continue with his current management and meds for now Follow up with cardiology as scheduled (5) Complete heart block: Comment: S/P pacemaker insertion on 04/15/2020 Code(s): I44.2 - Atrioventricular block, complete Plan: S/P pacemaker insertion on 04/15/2020 and he has been doing well since Follow up with cardiology as scheduled for continuing cardiac monitoring (6) Pure hypercholesterolemia: Code(s): E78.00 - Pure hypercholesterolemia, unspecified Plan: Results of his labs done a few weeks ago reviewed and discussed with patient although these appear to be orders from nephrology and were non-fasting labs so his fasting lipids were not done Reinforced low cholesterol diet Continue Atorvastatin 20 mg QD Will recheck his labs and fasting lipids in 4 months for follow up (7) Liver mass: Comment: findings suggestive of a hepatic mass seen incidentally on renal US in October 2023 Code(s): R16.0 - Hepatomegaly, not elsewhere classified Plan: Patient had some findings seen incidentally on renal US done in October 2023 that suggested a hepatic mass and he is now scheduled for an abdominal and pelvic CT in a few weeks for further evaluation of this issue (8) Charcot's arthropathy, diabetic: Code(s): E11.610 - Type 2 diabetes mellitus with diabetic neuropathic arthropathy Plan: Involving primarily the right foot Follow up with podiatry as scheduled (9) Vitamin D deficiency: Code(s): E55.9 - Vitamin D deficiency, unspecified Plan: Continue Vitamin D3 2000 units QD (10) Anemia: Code(s): D64.9 - Anemia, unspecified Qualifiers: Anemia type: due to chronic kidney disease Chronic kidney disease stage: stage 3 (moderate) Chronic kidney disease stage 3 subtype: stage 3b (GFR 30-44) Qualified Code(s): N18.32 - Chronic kidney disease, stage 3b; D63.1 - Anemia in chronic kidney disease Plan: Is most likely due to chronic disease, including CKD His H/H have again been stable Patient was taking oral iron supplements in the past but eventually stopped taking it due to increasing constipation He was previously referred to hematology because of a significant decline in his H/H but this appears to be stable again and as his anemia is mostly mild, no further intervention is currently recommended Follow up with hematology as scheduled (11) Obesity (BMI 30-39.9): Code(s): E66.9 - Obesity, unspecified Plan: Reinforced diet/exercise as tolerated/lose weight Plan Follow up in 4 months Orders: Orders Hemoglobin A1c 4 Months E11.9 - Type 2 diabetes mellitus without complications Microalbumin, Random (w Creat) 4 Months E11.9 - Type 2 diabetes mellitus without complications TSH reflex Free T4 4 Months E78.00 - Pure hypercholesterolemia, unspecified Complete Blood Count Auto Diff 4 Months D64.9 - Anemia, unspecified Lipid Panel 4 Months E78.00 - Pure hypercholesterolemia, unspecified Comprehensive [place]. Panel Fast 4 Months E78.00 - Pure hypercholesterolemia, unspecified UA CC w/rflx Micro + Cult 4 Months R30.0 - Dysuria Vitamin D 25-OH Total 4 Months E55.9 - Vitamin D deficiency, unspecified Vitamin B12 and Folate 4 Months E53.8 - Deficiency of other specified B group vitamins Coding Level of Care Code Est Pt Level 4 (83475) Complex EM visit Add On G2211 Diagnoses Type 2 diabetes mellitus with other diabetic kidney complication E11.29 Stage 3b chronic kidney disease N18.32 Chronic kidney disease stage 3 subtype: stage 3b (GFR 30-44) Benign essential hypertension I10 Combined systolic and diastolic congestive heart failure, unspecified HF chronicity I50.40 Heart failure chronicity: unspecified Complete heart block I44.2 Pure hypercholesterolemia E78.00 Liver mass R16.0 Charcot's arthropathy, diabetic E11.610 Vitamin D deficiency E55.9 Anemia due to stage 3b chronic kidney disease N18.32; D63.1 Anemia type: due to chronic kidney disease Chronic kidney disease stage: stage 3 (moderate) Chronic kidney disease stage 3 subtype: stage 3b (GFR 30-44) Obesity (BMI 30-39.9) E66.9
== END 2024-05-29 17:00 | disposition home or self-care (01) ==
PROVIDERS: PCP Internal Medicine; Visit Provider Internal Medicine
DX: I13.0 Hypertensive heart and chronic kidney disease with heart failure and stage 1 through stage 4 chronic kidney disease, or unspecified chronic kidney disease (principal); E11.22 Type 2 diabetes mellitus with diabetic chronic kidney disease; N18.32 Chronic kidney disease, stage 3b; I50.40 Unspecified combined systolic (congestive) and diastolic (congestive) heart failure; E78.00 Pure hypercholesterolemia, unspecified; R16.0 Hepatomegaly, not elsewhere classified; E55.9 Vitamin D deficiency, unspecified; D63.1 Anemia in chronic kidney disease; E66.9 Obesity, unspecified
CPT/HCPCS: 99214

== ENCOUNTER 2024-06-11 13:42 | Outpatient (AMB) | payer BC, SELFPAY ==
[2024-06-11 13:49] VITALS: BP 120/70; PULSE 82; BMI 36.9
--- NOTE | 2024-06-11 13:49 | A.OFFVIS_ITS ---
Vital Signs 06/11/24 13:49 Height 5 ft 9 in Weight 250 lb BMI 36.9 BP 120/70 Blood Pressure Location Lt brachial Position Sitting Pulse 82 Intake Visit Reasons: 1 yr fu w/ bi[employer]ronic [employer] Account Representative Required: No Accompanied by: Self / Same As Patient Allergies regadenoson [From Lexiscan] Adverse Reaction (Severe, Verified 05/29/24 16:52) seizure type activity Medication List - Last Reconciled 06/11/24 by Ugo Quintero MD alcohol swabs (BD Alcohol Swabs) 1 pad topical QID amlodipine 10 mg PO DAILY 90 days atorvastatin 20 mg PO BEDTIME 90 days blood sugar diagnostic (AT InternetTouch Verio test strips) 1 strip miscellaneous TID 30 days blood sugar diagnostic (OneTouch Ultra Test strips) As directed -tests 4 X/day blood-glucose meter (AT InternetTouch Ultra2 Meter) As directed tests 4 X/day blood-glucose meter,continuous (FreeStyle Tish 3 [place]) As directed blood-glucose sensor (FreeStyle Tish 3 Sensor device) As directed bumetanide 2 mg PO BID 30 days cholecalciferol (vitamin D3) 50 mcg PO DAILY 90 days dulaglutide (Trulicity) 0.75 mg (0.5 mL) subcut QWEEK 28 days hydralazine 100 mg PO TID 90 days insulin glargine (Basaglar KwikPen U-100 Insulin) 10 units (0.1 mL) subcut QPM 30 days isosorbide mononitrate ER 60 mg PO DAILY 90 days labetalol 100 mg PO BID lancets As directed lancets ([employer]uch UltraSoft Lancets) As directed-tests 4 X/day pen needle, diabetic As directed spironolactone 50 mg (2 x 25 mg) PO QAM tamsulosin 0.4 mg PO DAILY 90 days HPI Comments Details: Quintin returns for follow-up of congestive heart failure. To recall, he was admitted to the hospital with congestive heart failure in 2 020. Apparently was having a lot of leg swelling as well as scrotal swelling. Then he was put on diuretics and lost more than 75 lb. He was also found to be in 2-1 heart block. Underwent permanent pacemaker implantation. Multiple vascular risk factors including type 2 diabetes and hypertension as well as chronic kidney disease. He states he is feeling fine. No specific complaints like angina or shortness of breath. Reviewed the last echocardiogram, he did have moderately decreased LVEF and was recommended cardiac catheterization but he never followed up. Today, he states he is still thinking about it. [facility] Medical History Vitamin D deficiency Obesity (BMI 30-39.9) Pure hypercholesterolemia Benign essential hypertension Combined systolic and diastolic congestive heart failure Chronic kidney disease (CKD), stage III (moderate) Diabetic foot ulcer with osteomyelitis Complete heart block CHF (congestive heart failure) BPH (benign prostatic hyperplasia) Proteinuria Hyperlipidemia Essential hypertension Normally functioning cardiac pacemaker present Chronic right heart failure Heart block CKD (chronic kidney disease) Hypertension Type 2 diabetes mellitus Pacemaker Surgical History History of amputation of toe Type 2 diabetes mellitus with other diabetic kidney complication History of cardiac pacemaker (~04/15/20) Family History Mother CVA (cerebral vascular accident) Diabetes Social History Housing: Apartment Alcohol intake: never Patient Tobacco Use Status: Never used Tobacco e-Cigarette/Vaping Use: Never Used Second Hand Smoke Exposure: Yes service: Yes Current occupational status: employed Cognitive needs: No Hearing needs: No Vision needs: No Review of Systems Const Denies chills, Denies fatigue, Denies fever(s), Denies weight gain and Denies weight loss ENT Denies dizziness Card Denies chest pain, Reports leg edema, Denies lightheadedness, Denies palpita tions, Denies dyspnea on exertion, Denies orthopnea and Denies other Resp Denies cough and Denies dyspnea on exertion GI Denies hematochezia and Denies change in stool character Musc Denies abnormal gait, Denies muscle weakness, Denies numbness, Denies radiating pain into limb and Denies tingling Neuro Denies abnormal gait, Denies dizziness, Denies numbness and Denies tingling Endo Denies fatigue and Denies palpitations Physical Exam Vital Signs: Last Vital Signs Pulse 82 06/11/24 13:49 BP 120/70 06/11/24 13:49 BMI result Body Mass Index 36.9 Const General: comfortable and no acute distress Orientation/consciousness: patient oriented x3 HEENT Other: Unremarkable Head: Yes normal to inspection Neck Neck: Yes normal visual inspection Chest Chest palpation & inspection: normal inspection of the chest Resp Auscultation: clear to auscultation bilaterally Cardio Palpation: normal PMI Heart sounds: S1 normal heart sound present, S2 normal heart sound present, no gallops, no murmurs and no rubs GI Palpation (GI): Soft to palpation Back/Spine/Pelvis Other: unremarkable Skin General skin exam: no rashes or lesions noted Neuro General: patient oriented x3 Extrem General: Yes normal to inspection Psych Mental Status: mental status grossly normal Office Procedures Cardiac Device Check Cardiac Device Check Details: Pacemaker interrogated today. Dual-chamber device, programmed DDD-CLS mode. Battery status more than 5 years. Normal lead parameters. Pacing in the atrium 19%. Pacing in the ventricle 100%. No atrial arrhythmias. Episode of NSVT in the past but nothing recent. Overall, normal device function. [id number] Cardiac Device Check, pacemaker dual lead Procedure code (CPT) selection complete EKG Details: EKG with probably atrial sensed, ventricular paced rhythm at 82/Min. [id number], Complete Assessment & Plan Assessment & Plan (1) Cardiomyopathy: Code(s): I42.9 - Cardiomyopathy, unspecified Category: Medical Plan: In the last echocardiogram from September, LVEF is 35-40%. In the past, it was the normal range at 60-65%. Unclear etiology. Could be pacemaker induced. Needs evaluation for ischemic etiology with a diagnostic catheterization. Previously had seizures with Lexiscan. We will recheck echocardiogram and then plan potentially catheterization unless there is any spontaneous improvement in LVEF. He is still indecisive about this. Clinically, no heart failure symptoms or signs. Also, based on the echocardiogram his meds will need to be optimized per current guidelines. Suspect we can switch the Labetalol to Coreg and consider starting Entresto if we can monitor the kidney function. (2) Chronic right heart failure: Code(s): I50.812 - Chronic right heart failure Category: Medical Plan: Stable. No changes. Sleep study requested multiple times but not performed. (3) Essential hypertension: Code(s): I10 - Essential (primary) hypertension Category: Medical Plan: Stable. No changes. (4) Type 2 diabetes mellitus with other diabetic kidney complication: Code(s): E11.29 - Type 2 diabetes mellitus with other diabetic kidney complication Category: Surgical Plan: Most recent hemoglobin A1c is 6.7%. Seems reasonable. On insulin and Trulicity. (5) Normally functioning cardiac pacemaker present: Code(s): Z95.0 - Presence of cardiac pacemaker Category: Medical Plan: Checked today and with normal function. May follow remotely. Orders: Orders CA echo transthoracic complete Today I42.9 - Cardiomyopathy, unspecified Coding Level of Care Code Est Pt Level 4 (67359) Diagnoses Cardiomyopathy I42.9 Chronic right heart failure I50.812 Essential hypertension I10 Type 2 diabetes mellitus with other diabetic kidney complication E11.29 Normally functioning cardiac pacemaker present Z95.0 CPT Codes Cardiac Device Check - Cardiac Device 2: [id number] Cardiac Device Check, pacemaker dual lead ([id number]) EKG - CPT: 91598-[id number], Complete ([id number])
== END 2024-06-11 14:12 | disposition home or self-care (01) ==
PROVIDERS: PCP Internal Medicine; Visit Provider Internal Medicine
DX: I42.9 Cardiomyopathy, unspecified (principal); I50.812 Chronic right heart failure; I10 Essential (primary) hypertension; E11.29 Type 2 diabetes mellitus with other diabetic kidney complication; Z95.0 Presence of cardiac pacemaker
CPT/HCPCS: 93010; 93280; 99214

== ENCOUNTER → 2024-06-11 13:42 | Outpatient (BNVA) | payer BC, SELFPAY | PROVIDERS: PCP Internal Medicine; Visit Provider Internal Medicine | DX: I42.9 Cardiomyopathy, unspecified (principal); I11.0 Hypertensive heart disease with heart failure; I50.812 Chronic right heart failure; E11.29 Type 2 diabetes mellitus with other diabetic kidney complication; Z45.018 Encounter for adjustment and management of other part of cardiac pacemaker | CPT/HCPCS: 93005; 93280 ==

== ENCOUNTER 2024-06-22 13:26 | Outpatient (AMB) | payer BC, SELFPAY ==
--- NOTE | 2024-06-22 09:20 | A.OFFVIS_ITS ---
Vital Signs 06/22/24 13:45 Height 5 ft 9 in Weight 262 lb 5.601 oz BMI 38.7 BP 130/82 Blood Pressure Location Rt brachial Position Sitting Pulse 83 Pulse Source Pulse Oximeter Intake Visit Reasons: T2DM Intake Note: Patient presents today for a 1 week follow-up on Type 2 Diabetes Mellitus: Last Diabetic Eye exam: DUE Last Podiatry Exam: 03/19/2024 Most recent HbA1c: 6.7%, 04/03/2024 Random Glucose: 167 mg/dL, Today Food Manager Required: No Accompanied by: Self / Same As Patient Allergies regadenoson [From Lexiscan] Adverse Reaction (Severe, Verified 05/29/24 16:52) seizure type activity HPI Comments Details: Patient is a 59 yo male with DM type 2 diagnosed at age 40 years of age, who presents for continued management of diabetes. He was last seen by myself on 04/13/24 and he was givena prescription for a glucose sensor which he has not yet started. He had been discharged to primary care after his last visit with Dr. Jacobson on 03/08/2023. He reports he was diagnosed with worsening CKD and Charcot. A1C on 04/03/24 was 6.7%. Current Diabetes Medications: Basaglar 10 units and Trulicity 0.75 mg Qwkly Finger stick glucose has been 130-170's. He has a [employer] sensor with reader and will call to schedule training with Sandy GALARZA. Denies retinopathy: Last dilated eye exam: over one year he will schedule +Nephropathy: followed regularly by Dr. Liz for stage 3b kidney disease Positive neuropathy symptoms reported: + numbness, tingling, has a cramp once a week sees [facility] on a regular basis Has charcot foot he has follow-up with Podiatry over the next 1-2 months and we will request new diabetic shoes at that time Hypoglycemia: denies Hyperglycemia: denies polyuria, denies nocturia Exercise: works as [employer] at [employer] and does some walking sees cardiology regularly tobacco no alcohol no PFSH Medical History Vitamin D deficiency Obesity (BMI 30-39.9) Pure hypercholesterolemia Benign essential hypertension Combined systolic and diastolic congestive heart failure Chronic kidney disease (CKD), stage III (moderate) Diabetic foot ulcer with osteomyelitis Complete heart block CHF (congestive heart failure) BPH (benign prostatic hyperplasia) Proteinuria Hyperlipidemia Essential hypertension Normally functioning cardiac pacemaker present Chronic right heart failure Heart block CKD (chronic kidney disease) Hypertension Type 2 diabetes mellitus Pacemaker Surgical History History of amputation of toe Type 2 diabetes mellitus with other diabetic kidney complication History of cardiac pacemaker (~04/15/20) Family History Mother CVA (cerebral vascular accident) Diabetes Social History Housing: Apartment Alcohol intake: never Patient Tobacco Use Status: Never used Tobacco e-Cigarette/Vaping Use: Never Used Second Hand Smoke Exposure: Yes service: Yes Current occupational status: employed Cognitive needs: No Hearing needs: No Vision needs: No Physical Exam Vital Signs: Last Vital Signs Pulse 83 06/22/24 13:45 BP 130/82 06/22/24 13:45 BMI result Body Mass Index 38.7 Const Other: Absence of Cushingoid features. Absence of acromegalic features. Neck exam reveals nl size thyroid about 15 gms. No thyroid nodules palpable. Heart S1 S2, Reg R/R. No M/R G. Skin exam reveals absence of vitiligo or acanthosis nigricans. Abdomen protuberant. Trace edema Foot exam deferred today Results Reviewed Results Reviewed: Laboratory Last Values Glucose (Clinic) 167 mg/dL (60-115) H 06/22/24 13:49 Laboratory Tests 01/17/23 04/03/24 16:49 09:15 Hgb A1c (Clinic) 6.4 H 6.7 H Assessment & Plan Assessment & Plan (1) Type 2 diabetes mellitus with other diabetic kidney complication: Code(s): E11.29 - Type 2 diabetes mellitus with other diabetic kidney complication Category: Surgical Plan: Type 2 diabetic with neuropathy, nephropathy and Charcot foot with a recent A1c of 6.7%. He has tolerated Trulicity well but has not lost any weight with this. He will hold Basaglar 10 units and increase the Trulicity to 1.5 mg weekly. I will see him back in 4 months and he will schedule an appointment with the Sandy GALARZA for Analytics Enginese training. He has orders for blood work in the lab for both myself and several other providers. He will follow up with his security software engineer for foot exam, nail care in order for shoes. He reports he had vascular study at [facility] and will f/u with that office. If results of study not availabe kusum next visit will have patient sign rec release. The patient had an opportunity to ask questions regarding treatment plan. The patient expressed understanding and agreement with the above treatment plan. The patient is aware they should contact our office by phone for worsening glucose readings or for any low blood sugars which may warrant a change in diabetes medication. Compliance is encouraged with any medications and followup testing that is ordered Orders: Orders Hemoglobin A1c 2 Weeks E11.621 - Type 2 diabetes mellitus with foot ulcer, E11.69 - Type 2 diabetes mellitus with other specified complication, L97.509 - Non-pressure chronic ulcer of other part of unspecified foot with unspecified severity, M86.9 - Osteomyelitis, unspecified Medications: New Trulicity (dulaglutide) 1.5 mg (0.5 mL) subcut QWEEK 30 days 2.5 mL 11RF NS E11.29 - Type 2 diabetes mellitus with other diabetic kidney complication Discontinued dulaglutide (Trulicity) Discontinued Reason: Doctor's Order 0.75 mg (0.5 mL) subcut QWEEK 28 days 2 mL 11RF E11.29 - Type 2 diabetes mellitus with other diabetic kidney co mplication, I47.29 - Other ventricular tachycardia On Hold insulin glargine (Basaglar KwikPen U-100 Insulin) Hold Comment: Doctor's Order 10 units (0.1 mL) subcut QPM 30 days 3 mL 5RF Coding Level of Care Code Est Pt Level 4 (75508) Complex EM visit Add On G2211 Diagnoses Type 2 diabetes mellitus with other diabetic kidney complication E11.29 Time Spent (min) 30 Comment Time spent reviewing labs/provider notes, face to face, chart doc
[2024-06-22 13:45] VITALS: BP 130/82; PULSE 83; BMI 38.7
[2024-06-22 13:53] LABS: Glucose, Whole Blood 167 mg/dL (60-115)
== END 2024-06-22 14:12 | disposition home or self-care (01) ==
PROVIDERS: PCP Internal Medicine; Visit Provider Nurse Practitioner Adult Health
DX: E11.29 Type 2 diabetes mellitus with other diabetic kidney complication (principal)
CPT/HCPCS: 99214

== ENCOUNTER → 2024-06-22 13:26 | Outpatient (BNVA) | payer BC, SELFPAY | PROVIDERS: PCP Internal Medicine; Visit Provider Nurse Practitioner Adult Health | DX: E11.29 Type 2 diabetes mellitus with other diabetic kidney complication (principal); E11.40 Type 2 diabetes mellitus with diabetic neuropathy, unspecified; E11.610 Type 2 diabetes mellitus with diabetic neuropathic arthropathy | CPT/HCPCS: 82947 ==

== ENCOUNTER → 2024-07-23 23:59 | Outpatient (BNV) | payer BC, SELFPAY ==
--- NOTE | 2024-07-23 13:50 | A.OFFVIS_ITS ---
Intake Visit Reasons: Remote HF monitoring- [employer] Allergies regadenoson [From Lexiscan] Adverse Reaction (Severe, Verified 05/29/24 16:52) seizure type activity [facility] History Vitamin D deficiency Obesity (BMI 30-39.9) Pure hypercholesterolemia Benign essential hypertension Combined systolic and diastolic congestive heart failure Chronic kidney disease (CKD), stage III (moderate) Diabetic foot ulcer with osteomyelitis Complete heart block CHF (congestive heart failure) BPH (benign prostatic hyperplasia) Proteinuria Hyperlipidemia Essential hypertension Normally functioning cardiac pacemaker present Chronic right heart failure Heart block CKD (chronic kidney disease) Hypertension Type 2 diabetes mellitus Pacemaker Surgical History History of amputation of toe Type 2 diabetes mellitus with other diabetic kidney complication History of cardiac pacemaker (~04/15/20) Family History Mother CVA (cerebral vascular accident) Diabetes Social History Housing: Apartment Alcohol intake: never Patient Tobacco Use Status: Never used Tobacco e-Cigarette/Vaping Use: Never Used Second Hand Smoke Exposure: Yes service: Yes Current occupational status: employed Cognitive needs: No Hearing needs: No Vision needs: No Office Procedures Cardiac Device Check Cardiac Device Check Details: Date of service- 07/23/2024 ; Battery life 60%; normal lead parameters; AP 29%; WARP COILER 100%; no significant arrhythmias. Overall normal device function. [id number] Cardiac Device Interrogation, pacemaker Procedure code (CPT) selection complete Assessment & Plan Assessment & Plan (1) Normally functioning cardiac pacemaker present: Code(s): Z95.0 - Presence of cardiac pacemaker Category: Medical (2) Complete heart block: Comment: S/P pacemaker insertion on 04/15/2020 Code(s): I44.2 - Atrioventricular block, complete Category: Medical Plan x Coding Level of Care Code Procedure Only Diagnoses Normally functioning cardiac pacemaker present Z95.0 Complete heart block I44.2 CPT Codes Cardiac Device Check - Cardiac Device 12: [id number] Cardiac Device Interrogation, pacemaker ([id number])
== END ==
PROVIDERS: PCP Internal Medicine; Visit Provider Internal Medicine
DX: I44.2 Atrioventricular block, complete (principal); Z95.0 Presence of cardiac pacemaker
CPT/HCPCS: 93294

== ENCOUNTER 2024-08-29 14:18 | Outpatient (REF) | payer BC, SELFPAY ==
[2024-08-29] MEDS: Barium Sulfate Oral (Vanilla) 450 ML ORAL.SUSP PO (15:56)
--- OUTSIDE RECORDS SUMMARY | 2024-08-30 02:47 | XMS_ITS ---
[facility] Address [address] [place] [address] Care Team Providers Care Emergency Medicine Medical Director Name Role Phone Quan RUCKER, [place] Primary Care Provider Unava ilable Candy Sandhu Unavailable [phone] REASON FOR VISIT NS 06/05/24 Encounters Encounter Location Date Provider Diagnosis [facility] [address] [place] [address] 06/06/2024 Candy Sandhu Plan Of Treatment Next Appt Details Provider Name:Candy ruiz, 10/30/2024 04:00:00 PM, [address] [place], [address], Progress Notes * Harris CHACONOB:1965 (59 yo M)Acc No.[id number]:06/06/2024 Patient:?Quintin Chacon :1965???Age:59 Y???Sex:Male Address:[address] [place] [address], [address] * true * Date:? Generated for Printi ng/Fagracielag/eTransmitting on:?08/30/2024 02:47 AM EST
--- OUTSIDE RECORDS SUMMARY | 2024-08-30 02:47 | XMS_ITS ---
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 Role Phone Quan RUCKER, Ronnell Primary Care Provider Unava ilCandy Rosario Unavailable [phone] Allergies No Known Allergies REASON FOR VISIT At Risk Footcare, Foot pain, Toe Irritation Medications Medication SIG (Take, Route, Frequency, Duration) Notes Start Date End Date Status hydrALAZINE HCl 100 MG TAKE 1 TABLET BY MOUTH THREE TIMES DAILY Oral for 90 Active OneTouch Ultra 2 w/Device USE DIRECTED TO TEST FOUR TIMES DAILY for 30 Active Bumetanide 2 MG TAKE 1 TABLET BY TL TH TWICE DAILY Oral for 90 Active Spironolactone 25 MG TAKE 2 TABLETS BY MOUTH EVERY MORNING Oral for 90 Active Vitamin D3 50 MCG (1999 UT) TAKE 1 CAPSULE BY MOUTH DAILY Oral for 90 E559,Unavaila ble Active Extra Depth Orthopedic Shoes (1 Pair) with Customized Heat Molded Multidensity Innersoles (3 Pair) as directed Dx: NIDDM/Polyneuropathy (E11.42), Hammertoe Foot Deformity (M20.41,M20.42), Preulcerative Skin Lesion(s) (L85.1 08/07/2024 Active Labetalol HCl 100 MG Oral for 90 Active Tamsulosin HCl 0.4 MG Oral for 90 Active Trulicity 0.75 MG/0.5ML Subcutaneous for 28 Active Walking Boot/Pneumatic As directed Wear Daily for Until further notice 01/17/2024 Active Isosorbide Mononitrate ER 60 MG Oral for 90 Active Atorvastatin Calcium 20 MG TAKE 1 TABLET BY MOUTH AT BEDTIME Oral for 90 Active amLODIPine Besylate 10 MG TAKE 1 TABLET BY MOUTH DAILY Oral for 90 Active Social History Tobacco Use: Social History Observation Description Date Details (start date - stop date) Never Smoker NA - NA Tobacco Use/Smoking Question Answer Notes Are you a: nonsmoker Additional Findings: Tobacco Non-User Current no n-smoker Tobacco use other than smoking: Question Answer Notes Are you an other tobacco user? No Problems Problem Type SNOMED Code ICD Code Onset Dates Problem Status W/U Status Risk Notes Problem Acquired hammer toe of right foot (8542411425154 105) Other hammer toe(s) (acquired), right foot (M20.41) Active confirmed Problem Acquired hammer toe of left foot (3781295195975 103) Other hammer toe(s) (acquired), left foot (M20.42) Active confirmed Vital Signs Height 5ft9in in 08/07/2024 Weight 250 lbs 08/07/2024 BMI 36.91 kg/m2 08/07/2024 Blood pressure systolic 130 mm Hg 08/07/20 24 Blood pressure diastolic 90 mm Hg 024 Encounters Encounter Location Date Provider Diagnosis [facility] [address] [place] [address] 08/07/2024 Candy Sandhu Type 2 diabetes mellitus with diabetic polyneuropathy E11.42 ; Charcot's joint of foot, right M14.671 ; Tinea unguium B35.1 ; Type 2 diabetes mellitus with Charcot's joint of right foot E11.610 ; Other hammer toe(s) (acquired), right foot M20.41 and Other hammer toe(s) (acquired), left foot M20.42 Assessments Encounter Date Diagnosis (ICD Code) Assessment Notes Treatment Notes Treatment Clinical Notes Section Notes 08/07/2024 Type 2 diabetes mellitus with diabetic polyneuropathy (ICD-10 - E11.42) 08/07/2024 Charcot's joint of foot, right (ICD-10 - M14.671) 08/07/2024 Tinea unguium (ICD-10 - B35.1) 08/07/2024 Type 2 diabetes mellitus with Charcot's joint of right foot (ICD-10 - E11.610) 08/07/2024 Other hammer toe(s) (acquired), right foot (ICD-10 - M20.41) Patient Educated with: DIABETIC FOOT CARE INSTRUCTIONS. pdf (DIABETIC FOOT CARE INSTRUCTIONS. pdf) 08/07/2024 Other hammer toe(s) (acquired), left foot (ICD-10 - M20.42) Plan Of Treatment Medication Medication Name Sig Start Date Stop Date Notes Extra Depth Orthopedic Shoes (1 Pair) with Customized Heat Molded Multidensity Innersoles (3 Pair) as directed Dx: NIDDM/Polyneuropathy (E11.42), Hammertoe Foot Deformity (M20.41,M20.42), Preulcerative Skin Lesion(s) (L85.1 08/07/2024 Treatment Notes Assessment Notes Other hammer toe(s) (acquired), right fo ot Patient Educated with: DIABETIC FOOT CARE INSTRUCTIONS.pdf (DIABETIC FOOT CARE INSTRUCTIONS.pdf) Next Appt Details Follow Up: 2 Months, Reason: Provider Name:Candy ruiz, 10/30/2024 04:00:00 PM, [address] [place] [address], [id number], Procedure Notes * Category Sub-Category Detail Notes Debride Nail 6-10 Nail debridement Performance o f this nail treatment by a nonprofessional would put this patients foot and overall health at risk. Therefore, debridement to affected nail(s), as described in exam, was performed extensively to reduce/remove overall nail length, girth, thickness, subungual debris, and necrotic tissue, by manual and/or electrical means through the use of a nail nipper and/or dremel-type lens grinder, to a more viable healthy nail plate or bed tissue 6-10. Silver nitrate used for any petechial bleeding as necessary. Definitive antifungal treatment options have been reviewed and discussed with the patient. The patient chooses, no pharmaceutical tx - 87057 Keratoma Treatment Parring or Cutting o f Benign Hyperkeratotic Lesion(s) 78659 ( More than 4 Lesions ) - The Benign hyperkeratotic lesions, as described above were pared, and/or cut utilizing a sterile 15 blade, tissue nippers, and/or dremel Progress Notes * Marisela CHACON:1965 (59 yo M)Acc No.[id number]:08/07/2024 Progress Note Patient:?Quintin CHACON Provider:?Candy Sandhu DPM :1965???Age:59 Y???Sex:Male Santy e:08/07/2024 Address:[address] [place] [address] Pcp:Ronnell Glass MD Subjective: * Chief Complaints: * ???At Risk FootcareFoot pain Toe Irritation * HPI: ???At Risk footcare:?Pt States Last PCP Visit:?Date?05/20/2024 ???Foot Pain:?Nature:?swelling, deformity.?Location:?RIGHT.?Duration:?July.?Onset:?Pt twisted foot in Nov.?Course:?worse.?Aggravated:?any pressure , standing , walking, neuropathy.?Treatments:?cast boot and consult with Ortho, pt states he could not get DM shoes; pt states he has follow up appt with ortho soon.?Toe pain:?Location:?B/L feet.?Duration:?several years.?Course:?worse.?Aggravated by:?shoes, any pressure.?Treatments:?change in shoes.? * ROS:?General/Constitutional:?Nausea?denies.?Vomiting?denies.?Hunger Thirst?denies.?Loss appetite?denies.?Chills?denies.?Fatigue?denies.?Fever?denies.?Night Sweats?denies.?Unexplained weight loss?denies.?Unexplained weight gain?denies.?HEENTM:?Dentures?denies.?Dizziness?denies.?Glasses/contacts?denies.?Retinopathy?de nies.?Blurred/double vision?denies.?TMJ?denies.?Discharge/drainage?denies.?Implants?denies.?Sore throat?denies.?Dental implants?denies.?Hard of hearing ?denies.?Difficulty chewing/swallowing/speaking?denies.?Nose bleeds?denies.?Sore mouth?denies.?Respiratory:?On Oxygen?denies.?Pneumonia/pleurisy?denies.?Bronchitis?denies.?Emphysema?denies.?C oughing?denies.?Cough blood?denies.?Shortness of breath?denies.?Wheezing?denies.?Cardiovascular:?Pacemaker?admits.?MVP?denies.?WPW?denies.?CHF?admits.?Heart attack?denies.?Septal defect?denies.?Rapid beat?denies.?Chest pain ?denies.?Atrial Fib.?denies.?Murmur/Palpitations?denies.?Gastrointestinal:?Hemorrhoids?denies.?Stomach/Abdominal pain?denies.?Dark blood stool?denies.?Irritable bowel ?denies.?Constipation?denies.?Diarrhea?denies.?Hematology:?Swelling?admits.?Clots?denies.?Varicose Veins?denies.?Bruising?denies.?Bleeding problem?denies.?Genitourinary:?Blood urine?denies.?Frequent/Painfu/urination/bladder control?denies.?Kidney stones?denies.?Infection (UTI)?denies.?Nephropathy?denies.?sex trans dis (STD)?denies.?Prostate?denies.?Musculoskeletal:?Hammertoes?denies.?Bunions?denies.?Back Pain?denies.?Muscle Cramps/ Resting?denies.?Muscle cramps / walking?denies.?Generalized aches and pains?denies.?Weakness?denies.?Integ.:?Redding?denies.?Scars?denies.?Corns/calluses?denies.?Ingrown nails?denies.?Painful nails?denies.?Open Sores?denies.?Rashes?denies.?Neurologic:?Difficulty sleeping?denies.?Brain disorder?denies.?Numbness?admits.?Balance trouble?denies.?Confusion?denies.?Fainting/blackouts?denies.?Tingling?denies.?Tr emors?denies.? * Medical History:? * Surgical History:?cardiac pa cemeker 04/15/2020amputation, right toe 12/23/2020 * Hospitalization/Major Diagno stic Procedure:?Denies Past Hospitalization * Family History:?Mother: dece ased.?Father: .? * Social History:?Tobacco Use:?Tobacco Use/Smoking?Are you a:?nonsmoker ?Additional Findings: Tobacco Non-User?Current non-smoker ?Tobacco use other than smoking?Are you an other tobacco user??No * Medications:?TakingTrulicity 0.75 MG/0.5ML Solution Pen-injector Subcutaneous Vitamin D3 50 MCG (2000 UT) Capsule TAKE 1 CAPSULE BY MOUTH DAILY Oral , Notes to Pharmacist: E559,[facility]/Device Kit USE DIRECTED TO TEST FOUR TIMES DAILY hydrALAZINE HCl 100 MG Tablet TAKE 1 TABLET BY MOUTH THREE TIMES DAILY Oral Spironolactone 25 MG Tablet TAKE 2 TABLETS BY MOUTH EVERY MORNING Oral Bumetanide 2 MG Tablet TAKE 1 TABLET BY MOUTH TWICE DAILY Oral Isosorbide Mononitrate ER 60 MG Tablet Extended Release 24 Hour Oral amLODIPine Besylate 10 MG Tablet TAKE 1 TABLET BY MOUTH DAILY Oral Atorvastatin Calcium 20 MG Tablet TAKE 1 TABLET BY MOUTH AT BEDTIME Oral Tamsulosin HCl 0.4 MG Capsule Oral Labetalol HCl 100 MG Tablet Oral Walking Boot/Pneumatic As directed Wear Daily Medication List reviewed and reconciled with the patientTaking Trulicity 0.75 MG/0.5ML Solution Pen-injector Subcutaneous Taking Vitamin D3 50 MCG (2000 UT) Capsule TAKE 1 CAPSULE BY MOUTH DAILY Oral , Notes to Pharmacist: E559,UnavailableTaking OneTouch Ultra 2 w/Device Kit USE DIRECTED TO TEST FOUR TIMES DAILY Taking hydrALAZINE HCl 100 MG Tablet TAKE 1 TABLET BY MOUTH THREE TIMES DAILY Oral Taking Spironolactone 25 MG Tablet TAKE 2 TABLETS BY MOUTH EVERY MORNING Oral Taking Bumetanide 2 MG Tablet TAKE 1 TABLET BY MOUTH TWICE DAILY Oral Taking Isosorbide Mononitrate ER 60 MG Tablet Extended Release 24 Hour Oral Taking amLODIPine Besylate 10 MG Tablet TAKE 1 TABLET BY MOUTH DAILY Oral Taking Atorvastatin Calcium 20 MG Tablet TAKE 1 TABLET BY MOUTH AT BEDTIME Oral Taking Tamsulosin HCl 0.4 MG Capsule Oral Taking Labetalol HCl 100 MG Tablet Oral Taking Walking Boot/Pneumatic As directed Wear Daily Medication List reviewed and reconciled with the patient * Allergies:?N.K.D.A.yes[Aller gies Verified] Objective: * Vitals:?Ht: 5ft9in, Wt:250, BMI:36.91, Shoe size: 13, BP:130/90mm Hg, BS: 160, Ht-cm: 175.26 cm, Wt-k.4 kg. * ???Past Orders: ???Lab:HEMOGLOBIN A1C (GLYCO HEMOGLOBIN) (Order Date - 05/20/2024) (Collection Date & Time - 05/20/2024 03:44 PM) ? Value Reference Range ?TOTAL HEMOGLOBIN (HGBA1C) 6.7 * Examination: ???Ophthalmology Referral: ?DIABETES EYE EXAM?Neurological: ?SENSORY:? Neurological exam demonstrates, reduced light touch sensation, reduced sharp/dull pin prick discrimination , B/L, 5.07 monofilament test performed at plantar aspects of 5 varied sites per foot shows sensation, reduced , B/L, Pt relates, anesthesia, B/L.?Nails: ?NAILS are:?Elongated, overgrown, dystrophic, lytic, greater than 3mm thick, discolored and friable with crumbly malodorous subungual debris , with dull to no pain on palpation due to neuropathy , 1-5 Left foot , 1-4 Right foot.?Dermatologic: ?SKIN FINDINGS:?Skin exam reveals Keratotic lesion(s) located at , TA , T5 , SUB MTH (s) , 1 ,, 5 , Heel(s) , B/L, Medial-plantar Midfoot, Left.?Vascular: ?DP PULSES(B):?1/4 , RIGHT , 2/4 , LEFT.?PT PULSES(B):?/?,?RIGHT?,?24?,?LEFT.?CAPILLARY FILL TIME:?4 secs. per digit.?TROPHIC CONDITION-TEXTURE/ELASTICITY/TURGOR/HAIR GROWTH(B):?decreased, B/L.?TEMPERTURE GRADIENT(C):?normal, warm to cool, proximal to distal, B/L, B/L.?PIGMENTATION:?normal, B/L.?EDEMA(C):?/ , Foot , Right.?Orthopedic: ?MUSCLE STRENGTH:?5/5 all groups in a symmetrical fashion, B/L.?GAIT ABNORMALITY:?Pronated, abducted angle and base of gate.?FOOT MORPHOLOGY:?Prominent, painful 1st Met-Cuneiform joint without inflammation , Rigid medial/plantar protrusion of Midfoot at area of Navicular tuberosity , Pes Planus structure , (+) Charcot collapse/destruction noted at MTJ, rerarfoot and ankle?, RIGHT.?DIGITAL DEFORMITIES:??Amputation T9 , Digital contracture, PIPJ, 2-5 LEFT, 2-4 Right, non-reducible with WB or to push-up test, no over, nor underlapping , Digital contracture, PIPJ, 2-5 B/L, incompl-reducible to push-up test, no over, nor underlapping,?there is?evidence of shoe producing skin irritation.?FOOTWEAR:?worn, non-supportive, shoe gear properties exacerbate patient's foot/toe deformity, Non-Diabetic with no OT.?General Examination: ?GENERAL APPEARANCE:?Reveals a pleasant, alert, well nourished, well- developed, well hydrated individual, who demonstrates proper attention to hygiene/body habitus, and is in no acute distress, Pt serves as own historian for office visit today.?ORIENTED:?person, place, and time.?FOOT EXAM:?Footwear Evaluation? Assessment: * Assessment: 1.?Type 2 diabetes mellitus with diabetic polyneuropathy - E11.42???2.?Tinea unguium - B35.1???3.?Charcot's joint of foot, right - M14.671 (Primary)???Specify :Acute problem, Complicated w/ Multiple Tx Options(4)???4.?Type 2 diabetes mellitus with Charcot's joint of right foot - E11.610???5.?Other hammer toe(s) (acquired), right foot - M20.41???Specify :Chronic problem, Worse (4),Rx Management (4)???6.?Other hammer toe(s) (acquired), left foot - M20.42???Specify :Chronic problem, Worse (4),Rx Management (4)??? Plan: * Treatment: 2.?Other hammer toe(s) (acqu ired), right foot? Notes: Patient Educated with: DIABETIC FOOT CARE INSTRUCTIONS.pdf (DIABETIC FOOT CARE INSTRUCTIONS.pdf)?? * Procedures:?Debride Nail 6-10:?Nail debridement?Performance of this nail treatment by a nonprofessional would put this patients foot and overall health at risk. Therefore, debridement to affected nail(s), as described in exam, was performed extensively to reduce/remove overall nail length, girth, thickness, subungual debris, and necrotic tissue, by manual and/or electrical means through the use of a nail nipper and/or dremel-type lens grinder, to a more viable healthy nail plate or bed tissue 6-10. Silver nitrate used for any petechial bleeding as necessary. Definitive antifungal treatment options have been reviewed and discussed with the patient. The patient chooses, no pharmaceutical tx - 04984.?Keratoma Treatment:?Parring or Cutting of Benign Hyperkeratotic Lesion(s)?08580 ( More than 4 Lesions ) - The Benign hyperkeratotic lesions, as described above were pared, and/or cut utilizing a sterile 15 blade, tissue nippers, and/or dremel.? * Procedure Codes:?66865 DEBRI DE NAIL, 6 OR MORE, Modifiers: XS 82746 TRIM SKIN LESIONS, OVER 4, Modifiers: XS * Preventive Medicine:? ??Counseling:?Discussion:?-14: Office or other outpatient visit for the evaluation and management of an established patient, which required a medically appropriate history and/or examination and MODERATE level of DECISION MAKING for: 1 OR MORE CHRONIC PROBLEM(S) THATS WORSENING, 2 STABLE CHRONIC PROBLEMS, A NEWLY DIAGNOSED PROBLEM WITH UNCERTAIN PROGNOSIS, AN ACUTE COMPLICATED INJURY WITH MULTIPLE TREATMENT OPTIONS, OR AN ACUTE PROBLEM WITH ACCOMPANYING SYSTEMIC SYMPTOMS, THAT POSE(S) A MODERATE RISK OF MORBIDITY. THIS CONDITION MAY ALSO INCLUDE RX DRUG MANAGEMENT, OR A DECISON FOR MINOR SURGERY. The visit on the day of the encounter encompassed interpreting the data and educating the patient as to the nature of their condition, treatment options available according to their individual PMH, meds, allergies, and overall health/living conditions, as well as any potential risks or complications that may occur from a failure to adhere to, and participate in, the recommended course of therapy. The discussion included a complete verbal, and/or written explanation of the examination results, any x-rays taken, the proposed diagnosis, and outline of the treatment plan. A schedule for future care needs was also explained. The patient verbalized an understanding of the instructions at this time and agreed to be an active participant in their treatment. If the patient should think of any questions or concerns after the visit, I have encouraged the patient to call the office.?Digital Surgery:?Digital surgery was discussed with the patient, We elected to try conservative treatment at the present time, due to the patients medical history and increased asssociated post-operative risks.?Digital Treatment:?HT- I explained to the patient the possible etiologies of Hammertoes, including genetics/foot type/shoegear/activity level/exercise routine and the risks/benefits of all the different treatment options for their pain including: No treatment at all, Rest, Ice, New/supportive/wider/deeper Shoegear, Digital Padding/Strapping/Taping/Bracing/Gel protective sleeves, Foot/Ankle AFO Bracing, Stretching exercises, Deep Tissue Massage, Arch support/shoe inserts with splay metatarsal padding, and Custom orthoses. I insisted that any digital devices be removed daily and not worn overnight for safety. The patient is to carefully examine the toes daily for any skin irritation while using any splinting or padding device. The advantages and disadvantages of each option were discussed and the patients questions re: shoegear, padding, custom vs prefabricated inserts, activity level, and consistency in home treatment regimens for optimal success were answered to their verbally confirmed satisfaction.?Podiatric Counseling:?I explained the etiology of the patients podiatric pathology and the usual treatment plan. The patient was made aware of the adverse risks and sequelae associated with their medical condition(s) and the treatment necessary to avoid those complications. Pt does not appear to be in acute charcot today, no warmth or redness to right foot. Pt has been following up with ortho and will continue to for managment of charcot, did recommend he obtain DM shoes and states he will try going to the ID.?Shoe Gear Counseling:?SHOE Rx - The patient was counseled in great detail on their muscoloskeletal foot and toe deformities which coincided with the dermatological presentations visualized on exam. We discussed how their deformities put the integrity of their feet at risk for potential pedal complications which makes the accomidative diabetic shoes and cutomizable inserts medically necessary. We discussed the different shoe and insert treatment types and options, as well as the important advantages for adhering to regularly wearing these accomidative devices daily. The patient was made aware of the fact that a failure to abide by these recommedations may be deleterious to their foot health as they are able to prevent many pedal complications such as skin irritation, skin ulceration, infection, and even loss of toe/foot/leg/or life. Time was also spent with the patient dispensing and discussing proper diabetic footcare techniques including daily skin moisturization, daily foot inspection for any interruption in skin integrity including open lesions, or sign of infection such as redness/malodor/drainage/swelling. Also discussed and recommended were procedures regarding daily shoe inspection for the presence of internal foreign bodies as well as any visualized irregular shoe or insert wear. Patient questions re: shoes, inserts, and self foot inspections were answered to their satisfaction as the patient verbally confirmed a full understanding of the above information. A Rx for Extra Depth Orthopedic Shoes with 3 pair of custom heat-molded inserts was dispensed.? * Follow Up:?2 Months * Images: * Sign off status: Completed true * Provider:?Candy Sandhu DPM Date:? Generated for Carine shaw/Negrito/Ishaitting on:?08/30/2024 02:47 AM EST History and Physical Notes * HPI (History of Present Illness) Category Sub-Category Detail Notes Category Not es Toe pain Location: B/L feet Duration: several years Course: worse Aggravated by: shoes, any pressure Treatments: change in shoes At Risk footcare Pt States Last PCP Visit: Date: 4 Foot Pain Nature: swelling, deformity Location: RIGHT Duration: July Onset: Pt twisted foot in N ov Course: worse Aggravated: any pressure , stand ing , walking, neuropathy Treatments: cast boot and consul t with Ortho, pt states he could not get DM shoes; pt states he has follow up appt with ortho soon Examination Category Sub-Category Detail Notes Category Not es Neurological SENSORY: Neurological exa m demonstrates, reduced light touch sensation, reduced sharp/dull pin prick discrimination , B/L, 5.07 monofilament test performed at plantar aspects of 5 varied sites per foot shows sensation, reduced , B/L, Pt relates, anesthesia, B/L Dermatologic SKIN FINDINGS: Skin exam reveal s Keratotic lesion(s) located at , TA , T5 , SUB MTH (s) , 1 ,, 5 , Heel(s) , B/L, Medial-plantar Midfoot, Left Orthopedic GAIT ABNORMALITY: Pronated, abdu cted angle and base of gate FOOT MORPHOLOGY: Prominent, painful 1 st Met-Cuneiform joint without inflammation , Rigid medial/plantar protrusion of Midfoot at area of Navicular tuberosity , Pes Planus structure , (+) Charcot collapse/destruction noted at MTJ, rerarfoot and ankle , RIGHT FOOTWEAR: worn, non-supportive , shoe gear properties exacerbate patient's foot/toe deformity, Non-Diabetic with no OT DIGITAL DEFORMITIES: Amputation T9 , Dig ital contracture, PIPJ, 2-5 LEFT, 2-4 Right, non-reducible with WB or to push-up test, no over, nor underlapping , Digital contracture, PIPJ, 2-5 B/L, incompl-reducible to push-up test, no over, nor underlapping, there is evidence of shoe producing skin irritation MUSCLE STRENGTH: 5/5 all groups in a symmetrical fashion, B/L General Examination GENERAL APPEARANCE: Reveals a pleasant, alert, well nourished, well-developed, well hydrated individual, who demonstrates proper attention to hygiene/body habitus, and is in no acute distress, Pt serves as own historian for office visit today FOOT EXAM: Lower Extremity Neurological Exa m performed:: Yes ORIENTED: person, place, and t sylvia Footwear Evaluation Footwear Evaluation performe d:: Yes Ophthalmology Referral DIABETES EYE EXAM Procedure Perform ed:: No Eye Exam not performed:: No reason speci fied Findings of Diabetic Eye Exam:: no retin opathy Vascular DP PULSES(B): 1/4 , RIGHT , 2/4 , LEFT PT PULSES(B): 1/4 , RIGHT , 2/4 , LEFT CAPILLARY FILL TIME: 4 secs. per digit TEMPERTURE GRADIENT(C): normal, warm to cool, proximal to distal, B/L, B/L TROPHIC CONDITION-TEXTURE/ELASTICITY/TURGOR/HAIR GROWTH(B): decreased, B/L EDEMA(C): 4/4 , Foot , Right PIGMENTATION: normal, B/L Nails NAILS are: Elongated, overg rown, dystrophic, lytic, greater than 3mm thick, discolored and friable with crumbly malodorous subungual debris , with dull to no pain on palpation due to neuropathy , 1-5 Left foot , 1-4 Right foot
--- OUTSIDE RECORDS SUMMARY | 2024-08-30 02:47 | XMS_ITS ---
Author Organization [facility] Address [address] [place] [address] Care Team Providers Care Piano Builder Name Role Phone Quan RUCKER, [place] Primary Care Provider Candy Javed Unavailable [phone] Medications Medication SIG (Take, Route, Frequency, Duration) Notes Start Date End Date Status Walking Boot/Pneumatic As directed Wear Daily for Until further notice 01/17/2024 Active Atorvastatin Calcium 20 MG TAKE 1 TABLET BY MOUTH AT BEDTIME Oral for 90 Active Tamsulosin HCl 0.4 MG Oral for 90 Active Labetalol HCl 100 MG Oral for 90 Active Trulicity 0.75 MG/0.5ML Subcutaneous for 28 Active hydrALAZINE HCl 100 MG TAKE 1 TABLET BY MOUTH THREE TIMES DAILY Oral for 90 Active Spironolactone 25 MG TAKE 2 TABLETS BY MOUTH EVERY MORNING Oral for 90 Active Bumetanide 2 MG TAKE 1 TABLET BY MOUTH TWICE DAILY Oral for 90 Active Isosorbide Mononitrate ER 60 MG Oral for 90 Active amLODIPine Besylate 10 MG TAKE 1 TABLET BY MOUTH DAILY Oral for 90 Active Vitamin D3 50 MCG (1999 UT) TAKE 1 CAPSULE BY MOUTH DAILY Oral for 90 E559,Unavailab le Active OneTouch Ultra 2 w/Device USE DIRECTED TO TEST FOUR TIMES DAILY for 30 Active Encounters Encounter Location Date Provider Diagnosis [facility] [address] [place] [address] 06/05/2024 Candy Sandhu Plan Of Treatment Next Appt Details Provider Name:Candy ruiz, 10/30/2024 04:00:00 PM, [address] [place], [address], Progress Notes * Harris CHACONOB:1965 (59 yo M)Acc No.[id number]:06/05/2024 Progress Note Patient:?Quintin CHACON Provider:?Candy Sandhu DPM :1965???Age:59 Y???Sex:Male Santy e:06/05/2024 Address:[address] [place] [id number] Pcp:Ronnell Glass MD Subjective: * Chief Complaints: * ??? * HPI: ???At Risk footcare:?Pt States Last PCP Visit:?Date?01/18/2024 * Medical History:?type II mckenna betes, Heart disease, Chicken pox, Pacemaker. * Medications:?Taking Trulicit y 0.75 MG/0.5ML Solution Pen-injector Subcutaneous , Taking Vitamin D3 50 MCG (2000 UT) Capsule TAKE 1 CAPSULE BY MOUTH DAILY Oral , Notes to Pharmacist: E559,Unavailable, Taking SurfAir Ultra 2 w/Device Kit USE DIRECTED TO TEST FOUR TIMES DAILY , Taking hydrALAZINE HCl 100 MG Tablet TAKE 1 TABLET BY MOUTH THREE TIMES DAILY Oral , Taking Spironolactone 25 MG Tablet TAKE 2 TABLETS BY MOUTH EVERY MORNING Oral , Taking Bumetanide 2 MG Tablet TAKE 1 TABLET BY MOUTH TWICE DAILY Oral , Taking Isosorbide Mononitrate ER 60 MG Tablet Extended Release 24 Hour Oral , Taking amLODIPine Besylate 10 MG Tablet TAKE 1 TABLET BY MOUTH DAILY Oral , Taking Atorvastatin Calcium 20 MG Tablet TAKE 1 TABLET BY MOUTH AT BEDTIME Oral , Taking Tamsulosin HCl 0.4 MG Capsule Oral , Taking Labetalol HCl 100 MG Tablet Oral , Taking Walking Boot/Pneumatic As directed Wear Daily Objective: * Vitals:? Assessment: Plan: * Treatment: * Images: * The named appointment provid er may or may not be the originator of this progress note, and it is not deemed complete until electronically signed by the appointment provider. Sign off status: Pending * Provider:?Candy Sandhu DPM Date:? Generated for Carine shaw/Negrito/Kassy on:?08/30/2024 02:47 AM EST History and Physical Notes * HPI (History of Present Illness) Category Sub-Category Detail Notes Category Not es At Risk footcare Pt States Last PCP Visit: Date: 4
--- OUTSIDE RECORDS SUMMARY | 2024-08-30 02:48 | XMS_ITS | Patient Health Record ---
[facility] Address [address] [facility] [place] [address] Care Team Providers Care International Project Engineer Name Role Phone Quan RUCKER [place] Primary Care Provider Unava Candy [place] Unavailable [phone] Allergies No Known Allergies Results Component Value Reference Range Notes HEMOGLOBIN A1C (GLYCOHEMOGLO BIN) Reviewed date:08/07/2024 03:45:31 PM Interpretation: Performing Lab: Notes/Report: TOTAL HEMOGLOBIN (HGBA1C) 6.7 HEMOGLOBIN A1C (GLYCOHEMOGLO BIN) Reviewed date:01/17/2024 08:26:58 AM Interpretation: Performing Lab: Notes/Report: HEMOGLOBIN A1C (HH) 8.2 Reason For Referral No Information Medications Medication SIG (Take, Route, Frequency, Duration) Notes Start Date End Date Status hydrALAZINE HCl 100 MG TAKE 1 TABLET BY MOUTH THREE TIMES DAILY Oral for 90 Active OneTouch Ultra 2 w/Device USE DIRECTED TO TEST FOUR TIMES DAILY for 30 Active Bumetanide 2 MG TAKE 1 TABLET BY TWICE DAILY Oral for 90 Active Spironolactone 25 MG TAKE 2 TABLETS BY MOUTH EVERY MORNING Oral for 90 Active Labetalol HCl 100 MG Oral for 90 Active Tamsulosin HCl 0.4 MG Oral for 90 Active Vitamin D3 50 MCG (1999) TAKE 1 CAPSULE BY MOUTH DAILY Oral for 90 E559,Unavaila ble Active Trulicity 0.75 MG/0.5ML Subcutaneous for 28 Active Walking Boot/Pneumatic As directed Wear Daily for Until further notice 01/17/2024 Active Isosorbide Mononitrate ER 60 MG Oral for 90 Active Atorvastatin Calcium 20 MG TAKE 1 TABLET BY MOUTH AT BEDTIME Oral for 90 Active amLODIPine Besylate 10 MG TAKE 1 TABLET BY MOUTH DAILY Oral for 90 Active Extra Depth Orthopedic Shoes (1 Pair) with Customized Heat Molded Multidensity Innersoles (3 Pair) as directed Dx: NIDDM/Polyneuropathy (E11.42), Hammertoe Foot Deformity (M20.41,M20.42), Preulcerative Skin Lesion(s) (L85.1 08/07/2024 Active Immunizations Vaccine Route Administration Date Status Comme nts Influenza Unknown 06/20/2023 Administered Social History Tobacco Use: Social History Observation Description Date Details (start date - stop date) Never Smoker NA - NA Tobacco Use/Smoking Question Answer Notes Are you a: nonsmoker Additional Findings: Tobacco Non-User Current no n-smoker Alcohol Screen Question Answer Notes Did you have a drink containing alcohol in the p ast year? No Points 0 Interpretation Negative Tobacco use other than smoking: Question Answer Notes Are you an other tobacco user? No Problems Problem Type SNOMED Code ICD Code Onset Dates Problem Status W/U Status Risk Notes Problem Acquired hammer toe of right foot (0700793330576572 ) Other hammer toe(s) (acquired), right foot (M20.41) Active confirmed Problem Acquired hammer toe of left foot (6517124546721190 ) Other hammer toe(s) (acquired), left foot (M20.42) Active confirmed Problem 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 I (929740165) Type 1 diabetes mellitus with diabetic polyneuropathy (E10.42) Active confirmed Problem Polyneuropathy due to type 2 diabetes mellitus (860444444) Type 2 diabetes mellitus with diabetic polyneuropathy (E11.42) Active confirmed Problem 415489820 Hammertoe of lef t foot (M20.42) Active confirmed Problem 830123029 Hammertoe of right foot (M20.41) Active confirmed Problem 882145821372 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) Active confirmed Problem 271264432 Charcot's joint of foot, right (M14.671) Active confirmed Vital Signs Blood pressure diastolic 90 mm Hg 08/07/2024 Height 5ft9in in 08/07/2024 Blood pressure systolic 130 mm Hg 08/07/2024 Weight 250 lbs 08/07/2024 BMI 36.91 kg/m2 08/07/2024 Encounters Encounter Location Date Provider Diagnosis [address] [address] 01/17/2024 Candy Sandhu Type 2 diabetes mellitus with diabetic polyneuropathy E11.42 ; Charcot's joint of foot, right M14.671 ; Tinea unguium B35.1 ; Type 2 diabetes mellitus with Charcot's joint of right foot E11.610 ; Hammertoe of right foot M20.41 and Hammertoe of left foot M20.[address] [address] 03/27/2024 Candy Sandhu Type 2 diabetes mellitus with diabetic polyneuropathy E11.42 ; Charcot's joint of foot, right M14.671 ; Tinea unguium B35.1 ; Type 2 diabetes mellitus with Charcot's joint of right foot E11.610 ; Hammertoe of right foot M20.41 and Hammertoe of left foot M20.[address] [address] 08/07/2024 Candy Sandhu Type 2 diabetes mellitus with diabetic polyneuropathy E11.42 ; Charcot's joint of foot, right M14.671 ; Tinea unguium B35.1 ; Type 2 diabetes mellitus with Charcot's joint of right foot E11.610 ; Other hammer toe(s) (acquired), right foot M20.41 and Other hammer toe(s) (acquired), left foot M20.[address] [address] 01/11/2024 Candy Sandhu [address] [address] 01/18/2024 Candy Sandhu [address] [address] 06/06/2024 Candy Sandhu Assessments Encounter Date Diagnosis (ICD Code) Assessment Notes Treatment Notes Treatment Clinical Notes Section Notes 01/17/2024 Type 2 diabetes mellitus with diabetic polyneuropathy (ICD-10 - E11.42) 01/17/2024 Charcot's joint of foot, right (ICD-10 - M14.671) 03/27/2024 Type 2 diabetes mellitus with diabetic polyneuropathy (ICD-10 - E11.42) 08/07/2024 Type 2 diabetes mellitus with diabetic polyneuropathy (ICD-10 - E11.42) 08/07/2024 Tinea unguium (ICD-10 - B35.1) 08/07/2024 Charcot's joint of foot, right (ICD-10 - M14.671) 03/27/2024 Charcot's joint of foot, right (ICD-10 - M14.671) 01/17/2024 Tinea unguium (ICD-10 - B35.1) 01/17/2024 Type 2 diabetes mellitus with Charcot's joint of right foot (ICD-10 - E11.610) 03/27/2024 Tinea unguium (ICD-10 - B35.1) 08/07/2024 Type 2 diabetes mellitus with Charcot's joint of right foot (ICD-10 - E11.610) 08/07/2024 Other hammer toe(s) (acquired), right foot (ICD-10 - M20.41) Patient Educated with: DIABETIC FOOT CARE INSTRUCTIONS. pdf (DIABETIC FOOT CARE INSTRUCTIONS. pdf) 03/27/2024 Type 2 diabetes mellitus with Charcot's joint of right foot (ICD-10 - E11.610) 01/17/2024 Hammertoe of right foot (ICD-10 - M20.41) 01/17/2024 Hammertoe of left foot (ICD-10 - M20.42) 03/27/2024 Hammertoe of right foot (ICD-10 - M20.41) 08/07/2024 Other hammer toe(s) (acquired), left foot (ICD-10 - M20.42) 03/27/2024 Hammertoe of left foot (ICD-10 - M20.42) Plan Of Treatment Pending Test Test Name Order Date X ray : Foot, right 3V 01/17/2024 X ray : Ankle, right 3V 01/17/2024 Next Appt Details Provider Name:Candy ruiz, 10/30/2024 04:00:00 PM, [address] [facility], [place], [address], Insurance Providers Payer Name Payer Address Payer Phone Subscriber Number Group Number Insured Name Patient Relationship to Insured Coverage Start Date Coverage End Date [facility] [id number] [place] [address] [id number] Quintin Chacon Self - patient is the insured Medical (General) History Medical History History ICD Code type II diabetes Heart disease Chicken pox Pacemaker Surgical History Surgery Date(Month/Year) cardiac pacemeker 04/15/2020 amputation, right toe 12/23/2020
--- OUTSIDE RECORDS SUMMARY | 2024-08-30 02:48 | XMS_ITS | Continuity of Care Document ---
Author Organization [facility] Address [address] [place] [address] Phone Care Team Providers Care Tool Planer Set Up Operator Name Role Phone [facility] Unavailable Unavailable Allergies, Adverse Reactions, Alerts [...] Active Procedures Procedure Date CONTACT LENS FITTING [facility] Tech 0 EYE EXAM & TREATMENT REFRACTION EYE EXAM & TREATMENT REFRACTION [facility] Tech CONTACT LENS FITTING [facility] Tech 9 OFFICE/OUTPATIENT VISIT, EST OFFICE/OUTPATIENT VISIT, EST [facility] Tech CONTACT LENS FITTING [facility] Tech 8 EYE EXAM & TREATMENT EYE EXAM & TREATMENT CONTACT LENS FITTING [facility] Tech 7 REFRACTION [facility] Tech EYE EXAM & TREATMENT CONTACT LENS FITTING [facility] Tech 6 REFRACTION [facility] Tech EYE EXAM ESTABLISHED [facility] OFFICE/OUTPATIENT VISIT, NEW Advance Directives Directive Yes / No Effective Date File Name No Information Encounters Encounter Description Practice Location Reason(s) For Visit Diagnoses Date Provider Providers Copied on Encounter [facility] [place], [place], [id number], tel:[phone] [facility] No Information [facility] . [address] [place] [address], [id number]. tel:[phone] Referring Provider: Radha Stewart [facility] [address], [place], [address]. tel:[phone] [facility] [address] [place] [address], [id number], [place] tel:[phone] [facility] Contact lens evaluation (chief complaint) No Information 0 Mariel Garcia [facility] [address], [place], [address], [place]. tel:[phone] Referring Provider: Radha Stewart [address], [place], [address]. tel:[phone] [facility] [place], [place], [id number], [place] tel:[phone] [facility] routine exam (chief complaint) PresbyopiaNu clear Sclerosis OUCentral corneal ulcer, right eye 0 Mariel tabares [address] [facility] [address], [place], [address], [place]. tel:[phone] Referring Provider: Radha Stewart [address], [place], [address]. tel:[phone] [facility] [place], [place], [id number], [place] tel:[phone] [facility] comprehensiv e exam (chief complaint) PresbyopiaNu clear Sclerosis OUCentral corneal ulcer, right eye 9 Mariel tabares [address] [place] [address] , [place], [address], [place]. tel:[phone] Referring Provider: Pranay Floyd [facility] , [place], [address]. tel:[phone] OFFICE/OUTPA TIENT VISIT, EST [facility] [address] [place] [address], [id number], [place] tel:[phone] Luis Lopez 3 day recheck Corneal Ulcer (chief complaint) Central corneal ulcer, right eye 8 Faustino Del Angel. [address] [place] [address], [id number], [place]. tel:[phone] Referring Provider: Pranay lFoyd [facility] , [place], [address]. tel:[phone] OFFICE/OUTPA TIENT VISIT, EST [facility] [address] [place] [address], [id number], [place] tel:[phone] [facility] FBS (chief complaint) Central corneal ulcer, right eye 8 Faustino Del Angel. [address] [place] [address], [id number], [place]. tel:[phone] Referring Provider: Pranay Floyd [facility] , [place], [address]. tel:[phone] [facility] [address] [place] [address], [id number], [place] tel:[phone] [facility] No Information 8 Mariel tabares [facility] , [place], [address], [place]. tel:[phone] Referring Provider: Radha Stewart [facility] [address], [place], [address]. tel:[phone] [facility] [address] [place] [address], [id number], [place] tel:[phone] [facility] comprehensiv e exam (chief complaint) Nuclear Sclerosis OUPresbyopia 8 Mariel tabares [facility] [address], [place], [address], [place]. tel:[phone] Referring Provider: Radha Stewart [address], [place], [address]. tel:[phone] [facility] [address] [place] [address], [id number], [place] tel:[phone] [facility] comprehensiv e exam (chief complaint) Age-related nuclear cataract, bilateralPre sbyopia 7 Mariel tabares [facility] [address], [place], [address], [place]. tel:[phone] Referring Provider: Radha Stewart [address], [place], [address]. tel:[phone] [facility] [address] [place] [address], [id number], [place] tel:[phone] [facility] comprehensiv e exam (chief complaint) Age-related nuclear cataract, bilateralPre sbyopia 0 6 Mariel Garcia [facility] [address], [place], [address], [place]. tel:[phone] Referring Provider: Radha Stewart [address], [place], [address]. tel:[phone] [facility] [address] [place] [address], [id number], tel:[phone] [facility] metal FB (chief complaint) Foreign body in post wall of eye 5 Bubba Vela. [address] [facility] , [place], [place], [id number], . tel:[phone] Referring Provider: Pranay Floyd [address] [place] [address] , [place], [address]. tel:[phone] OFFICE/OUTPA TIENT VISIT, [facility] [address] [facility], [place], [place], [id number], tel:[phone] [facility] metal in eye (chief complaint) Foreign body in post wall of eye [address] [place] [address] , [place], [address], [place]. tel:[phone] Referring Provider: Pranay Floyd [address] [place] [address] , [place], [address]. tel:[phone] Family History Family Member Type Diagnosis Age At Onset Mother Problem (finding) Heart disease Payers Payer name Insurance type Covered libertarian ID Authortanga reji(s) [facility] [id number] Social History Type Description Quantity Date Captured [...]
--- OUTSIDE RECORDS SUMMARY | 2024-08-30 02:48 | XMS_ITS | Continuity of Care Document ---
Author Organization [facility] Address [address] [place] [address] [place] [address] Phone Care Team Providers Care Joss House Keeper Name Role Phone Jazzy Diaz MD Unavailable Unavailable Allergies, Adverse Reactions, Alerts Substance Reaction Status Criticality No Known Allergies Active No Inform ation Medications Medication Instructions Dosage Effective Dates (start - stop) Status Comments Stiolto Respimat 2.5 mcg-2.5 mcg/actuation solution for inhalation inhale 2 puff by inhalation route every day at the same time each day 2.00 puff - Active ATORVASTATIN 80 MG TABLET TAKE ONE TABLET BY MOUTH EVERY NIGHT AT BEDTIME 80 MG - Active omeprazole 40 mg capsule,delayed release TAKE 1 CAPSULE BY MOUTH EVERY DAY BEFORE A MEAL 40 MG - Active Lyrica 50 mg capsule take 1 capsule by oral route 3 times every day 50 MG - Active dexamethasone 4 mg tablet take 1 tablet by oral route 3 times every day as needed 4 MG - Active prochlorperazine maleate 10 mg tablet take 1 tablet by oral route 3 times every day 10 MG - Active Ventolin HFA 90 mcg/actuation aerosol inhaler inhale 2 puff by inhalation route every 4 - 6 hours as needed 180 MCG - Active oxycodone 10 mg tablet take 1 tablet by oral route every 4 - 6 hours as needed for pain - Active lisinopril 20 mg-hydrochlorothiazide 12.5 mg tablet TAKE 1 TABLET BY ORAL ROUTE EVERY DAY - Active Procedures Procedure Date Office/Established Level 5 SYST BP LT 130 MM HG DIAST BP < 80 MM HG Office/Established Level 4 CT Chest W/O Contrast SUBSEQUENT HOSPITAL CARE HOSPITAL DISCHARGE DAY Duplex Venous, Unilateral (DVT/GSV Mappi ng) (Interp) INPATIENT CONSULTATION SUBSEQUENT HOSPITAL CARE SUBSEQUENT HOSPITAL CARE SUBSEQUENT HOSPITAL CARE SUBSEQUENT HOSPITAL CARE SUBSEQUENT HOSPITAL CARE SUBSEQUENT HOSPITAL CARE SUBSEQUENT HOSPITAL CARE SUBSEQUENT HOSPITAL CARE SUBSEQUENT HOSPITAL CARE Initial Hospital Care 3 SUBSEQUENT HOSPITAL CARE SUBSEQUENT HOSPITAL CARE SUBSEQUENT HOSPITAL CARE SUBSEQUENT HOSPITAL CARE SUBSEQUENT HOSPITAL CARE SUBSEQUENT HOSPITAL CARE SUBSEQUENT HOSPITAL CARE SUBSEQUENT HOSPITAL CARE Office/Established Level 5 EKG(ELECTROCARDIOGRAM COMPLETE) 020 SYST BP LT 130 MM HG DIAST BP < 80 MM HG Office/Established Level 4 SYST BP LT 130 MM HG DIAST BP < 80 MM HG X-ray Eye for foreign body Office/Established Level 4 BRONCHOSCOPY W/BIOPSY(S) DX BRONCHOSCOPE/BRUSH BRONCHOSCOPY/LUNG BX EACH Office Consult Level 4 SYST BP LT 130 MM HG DIAST BP < 80 MM HG Spirometry, W. Bronchodialator 20 Air Resistance Testing (PFT) DLCO Office/Established Level 4 SYST BP LT 130 MM HG DIAST BP 80-89 MM HG ROUTINE VENIPUNCTURE ASSAY OF TOTAL TESTOSTERONE ASSAY OF PSA TOTAL LIPID PANEL COMPREHEN METABOLIC PANEL ROUTINE VENIPUNCTURE ASSAY OF CREATININE CT Soft Tissue Neck w/ contrast 020 LOCM 300-399mg/ml iodine,1ml Flexible Laryngoscopy Office Consult Level 3 Office/Established Level 3 Echo Color Doppler (TTE W/ Doppler, Comp lete) X-RAY CHEST (2 View) Office/New Level 5 EKG(ELECTROCARDIOGRAM COMPLETE) 020 SYST BP >= 140 MM HG DIAST BP 80-89 MM HG LIPID PANEL COMPREHEN METABOLIC PANEL ROUTINE VENIPUNCTURE Office/Established Level 4 SYST BP LT 130 MM HG DIAST BP 80-89 MM HG Calcium Heart Score/Executive Health Scr een (DNB) Preventative Established 40-64 yrs SYST BP LT 130 MM HG DIAST BP 80-89 MM HG ROUTINE VENIPUNCTURE ASSAY OF TOTAL TESTOSTERONE ASSAY OF PSA TOTAL LIPID PANEL COMPREHEN METABOLIC PANEL Office/Established Level 4 Office/Established Level 4 ROUTINE VENIPUNCTURE ASSAY OF PSA TOTAL ASSAY OF TOTAL TESTOSTERONE COMP CBC W/AUTO DIFF WBC LIPID PANEL METABOLIC PANEL TOTAL CA ROUTINE VENIPUNCTURE Durolane Inj Inj/Asp. Large jt. bursa (shoulder, hip, knee) Office/Established Level 4 Office Consult Level 3 X-ray Knee Complete Standing (4 Views)(A P,Tunnel,Lateral, [place]) DepoMedrol 80mg Inj/Asp. Large jt. bursa (shoulder, hip, knee) Office/Established Level 3 SYST BP LT 130 MM HG DIAST BP 80-89 MM HG Office/Established Level 3 UGI Endo w/Biopsy Office Consult Level 4 Preventative Established 40-64 yrs LIPID PANEL COMPREHEN METABOLIC PANEL ROUTINE VENIPUNCTURE Office/Established Level 4 ASSAY OF TOTAL TESTOSTERONE LIPID PANEL COMPREHEN METABOLIC PANEL ROUTINE VENIPUNCTURE Admin. Ea. Addt'l Vaccine (SL/EP Mod) No Pneumonia vaccine Admin. 1 Vaccine (SL/EP Mod) FLU VAC NO PRSV 4 JOVANY Preventative Established 40-64 yrs ASSAY OF TOTAL TESTOSTERONE ASSAY OF PSA TOTAL LIPID PANEL COMPREHEN METABOLIC PANEL ROUTINE VENIPUNCTURE Post-Op Visit (DNB) Post-Op Visit (DNB) EXC-TR-EXT B9 3.1 - 4.0cm INTMD REPAIR S/A/T/EXT 2.6-7.5cm 2016 No Charge (DNB) Office/Established Level 4 LIPID PANEL COMPREHEN METABOLIC PANEL ROUTINE VENIPUNCTURE Post-Op Visit (DNB) I & D Abscess, Simple Office/Established Level 3 Office/Established Level 4 ROUTINE VENIPUNCTURE ASSAY OF PSA TOTAL LIPID PANEL COMPREHEN METABOLIC PANEL X-ray Knee (3 View) (PA 30 WB Lateral, S unrise) DepoMedrol 80mg Inj/Asp. Large jt. bursa (shoulder, hip, knee) Office/Established Level 4 Preventative Established 40-64 yrs ROUTINE VENIPUNCTURE ASSAY OF TOTAL TESTOSTERONE Advance Directives Directive Yes / No Effective Date File Name No Information Encounters Encounter Description Practice Location Reason(s) For Visit Diagnoses Date Provider Providers Copied on Encounter [address] , [place], [place], [id number], [place] tel:[phone] No Information 3 Joe Purcell. [address] [facility], [place], [place], [id number], [place]. tel:[phone] Office/Establ ished Level [address] , [place], [place], [address], [place] tel:[phone] Pulmonary Lung cancer (chief complaint)Sh ortness of breath (chief complaint) Non-small cell cancer of left lungShortnes s of breathTobacc o abuseBody mass index (BMI) 29.0-29.9, adult Dec-2 1 Juanjose Jara. [address] [place] [address], [address], [place]. tel:[phone] Primary Practice Provider: Job Ann, [address] [facility], [place], [address]. tel:[phone] [facility] Provider: Estefani Moulton, [address] [place] [address], [address]. tel:[phone] , [place], [place], [address], [place] tel:[phone] Family Medicine At [facility] No Information 1 Seth Kaiser. [address] [facility], [place], [place], [id number], [place]. tel:[phone] Office/Establ ished Level [address] , [place], [place], [id number], [place] tel:[phone] Pulmonary HFU (chief complaint)CO PD (follow up) (chief complaint)Veronica ng Cancer (chief complaint) Non-small cell cancer of left lungAbnormal findings on diagnostic imaging of lungTobacco abuseBody mass index (BMI) 28.0-28.9, adult Feb- 1 Juanjose Jara. [address] [place] [address], [address], [place]. tel:[phone] Primary Practice Provider: Job Ann, [address], [place], [address]. tel:[phone] ring Provider: Estefani Moulton, [address] [place] [address], [place], [address]. tel:[phone] , [place], [place], [address], [place] tel:[phone] Scan At [facility] No Information 1 Juanjose Jara. [address] [place] [address], [address], [place]. tel:[phone] Referring Provider: Estefani Moulton, [address] [place] [address], [address]. tel:[phone] , [place], [place], [address], [place] tel:[phone] Internal Medicine At [facility] No Information 1 Maddy Tee. [address] [place] [address] , [place], [place], [id number], [place]. tel:[phone] , [place], [place], [address], [place] tel:[phone] Pulmonary Shortness of breath 1 Juanjose Jara. [address] [place] [address], [address], [place]. tel:[phone] SUBSEQUENT HOSPITAL CARE [address] [place], [address], [place] tel: [phone] [facility] IP No Information 0 Jeff Dennison. [address] [place] [address], [address], [place]. tel:[phone] Referring Provider: Juma Aguilar, [address] [place] [address], [address]. tel: [phone] Initial Hospital Care [address] , [place], [place], [address], [place] tel: [phone] [facility] IP No Information 0 Jori Bond. [address] [place] [address], [address], [place]. tel:[phone] Referring Provider: Varun Hsieh, [address] [place] [address], [address]. tel:[phone] SUBSEQU[facility]OSPITAL CARE [address] , [place], [place], [address], [place] tel: [phone] [facility] IP No Information 0 Antonio Mota. [address] [place] [address], [address], [place]. tel:[phone] Referring Provider: Nakul Alvarez, [address] [place] [address], [address]. tel: [phone] INPATIENT CONSULTATION [address] , [place], [place], [address], [place] tel: [phone] [facility] IP No Information 0 Jeff Dennison. [address] [place] [address], [address], [place]. tel:[phone] Referring Provider: Juma Aguilar, [address] [place] [address], [address]. tel: [phone] [address] , [place], [place], [address], [place] tel: [phone] [facility] IP No Information 0 Valarie Garrison. [address] [place] [address], [address], [place]. tel:[phone] Referring Provider: Bladimir Sheppard, [address] [place] [address], [address]. tel:[phone] SUBSEQUENT HOSPITAL CARE [address] [place], [address], tel: [phone] [facility] IP No Information Dec-2 0 Antonio Mota. [address] [place] [address], [address], [place]. tel:[phone] Referring Provider: Nakul Alvarez, [address] [place] [address], [address]. tel: [phone] Office/Establ ished Level [address] [place], [place], [address], [place] tel: [phone] Cardiology At [facility] Coronary artery disease (chief complaint)hy pertension (chief complaint)hy perlipidemia (chief complaint)to bacco use (chief complaint) Mixed hyperlipidem iaEssential (primary) hypertension Atherosclero tic heart disease of eagle coronary artery without angina pectorisToba tobacco packing machine operator abuseBody mass index (BMI) 28.0-28.9, adult Dec-0 202 0 Misbah Jordan. [address] [place] [address] [place], [address], [place]. tel:[phone] Referring Provider: Job Ann, [address] , [place], [address]. [phone] Office/Establ ished Level [address] [place], [place], [address], [place] tel:[phone] Pulmonary lung cancer (chief complaint) Non-small cell cancer of left lungShortnes s of breathBody mass index (BMI) 28.0-28.9, adult Dec-0 3202 0 Juanjose Jara. [address] [place] [address], [address], [place]. tel:[phone] Primary Practice Provider: Job Ann, [address] , [place], [address]. tel:[phone] ring Provider: Estefani Moulton, [address] [place] [address], [address]. tel:[phone] , [place], [place], [address], [place] tel:[phone] MRI At 1202 Non-small cell cancer of left lung Sep-0 0 Juanjose Jara. [address] [place] [address], [address], [place]. tel:[phone] , [place], [place], [address], [place] tel:[phone] X Ray At 1202 No Information Sep-0 0 Juanjose Jara. [address] [place] [address], [address], [place]. tel:[phone] Referring Provider: Estefani Moulton, [address] [place] [address], [address]. tel:[phone] , [place], [place], [address], [place] tel:[phone] Pulmonary No Information Sep-0 0 Juanjose Jara. [address] [place] [address], [facility], [place]. tel:[phone] Referring Provider: Job Ann, [address], [place], [address]. tel:[phone] Office/Establ ished Level [address] , [place], [place], [address], [place] tel:[phone] Clinic Virtual fu after pet (chief complaint) Non-small cell cancer of left lungBody mass index (BMI) 28.0-28.9, adult Aug-2 0 Juanjose Jara. [address] [place] [address], [address], [place]. tel:[phone] Primary Practice Provider: Job Ann [address], [place], [address]. tel:[phone] ring Provider: Job Ann, [address], [place], [address]. tel: [phone] [address] , [place], [place], [address], [place] tel: [phone] [facility] OP No Information 0 Elieser Villegas. [address] [place] [address] , [place], [place], [id number], [place]. tel:[phone] Referring Provider: Bakari Mon, [address] [place] [address] , [place], [address]. tel: [phone] [address] , [place], [place], [address], [place] tel: [phone] Pulmonary Hilar mass 0 Juanjose Jara. [address] [place] [address], [facility], . tel:[phone] Office Consult Level [address] , [place], [place], [address], [place] tel: [phone] Pulmonary hilar mass (chief complaint)Vo heidi Cord dysfunction (chief complaint) Hilar massSolitary pulmonary noduleParaly sis of vocal cords and larynx, unilateralBo dy mass index (BMI) 30.0-30.9, adult Apr-0 0 Juanjose Jara. [address] [place] [address], [facility], [place]. tel:[phone] Primary Practice Provider: Job Ann, [address], [place], [address]. tel: [phone] ring Provider: Job Ann, [address], [place], [address]. tel:[phone] , [place], [place], [address], [place] tel: [phone] Pulmonary Hilar mass 0 Juanjose Medina [address] [place] [address], [address], [place]. tel:[phone] Referring Provider: Estefani Moulton, [address] [facility] [address], [place], [address]. tel:[phone] Office/Establ ished Level [address] [place], [address], [place] tel:[phone] Family Medicine At [facility] Follow Up of Hyperlipidem ia (chief complaint)Fo llow Up of Hypertension (chief complaint)Hy pogonadism (chief complaint)Vyas nd arthritis (chief complaint) Mixed hyperlipidem iaHilar massEssentia l (primary) hypertension Hypogonadism in maleLong term use of drugBody mass index (BMI) 29.0-29.9, adult 0 Seth Kaiser. [address] [place], [address], [place]. tel:[phone] Referring Provider: Job Ann, [address] [facility], [place], [address]. tel:[phone] , [place], [place], [address], [place] tel:[phone] Internal Medicine At [facility] No Information 0 Seth Kaiser. [address] [place], [place], [address], [place]. tel:[phone] [place], [address], [place] tel:[phone] Lab At [facility] Testicular hypofunction Other terminal superintendent (current) drug therapyMixed hyperlipidem ia 0 Seth Kaiser. [address] [place], [place], [address], [place]. tel:[phone] Referring Provider: Job Ann, [address] [facility], [place], [address]. tel:[phone] [place], [address], [place] tel:[phone] Family Medicine At [facility] 0 Seth Kaiser. [address], [place], [place], [address], [place]. tel:[phone] , [place], [place], [address], [place] tel:[phone] Family Medicine At [facility] 0 Seth Kaiser. [address], [place], [place], [address], [place]. tel:[phone] , [place], [place], [address], [place] tel:[phone] Scan At [facility] Essential (primary) hypertension 0 Barrett Blanco. [address] [place] [address], [id number], [place]. tel:[phone] Referring Provider: Job Ann, [address] , [place], [address]. tel:[phone] Office Consult Level [address] [place], [address], [place] tel:[phone] ENT At [place] [address] hoarseness (chief complaint) DysphoniaPar alysis of vocal cords and larynx, unilateralBo dy mass index (BMI) 30.0-30.9, adult 0 Barrett Blanco. [address] [place] [address], [id number], [place]. tel:[phone] Referring Provider: Job Ann, [address], [place], [address]. tel:[phone] , [place], [place], [address], [place] tel:[phone] Family Medicine At [facility] Change in voice 0 Seth Kaiser. [address], [place], [place], [address], [place]. tel:[phone] Office/Establ ished Level [address] [place], [address], [place] tel:[phone] Clinic Virtual voice loss (chief complaint) Laryngitis 0 Jalyn Paz. [address] [place], [address], [place]. tel:[phone] Referring Provider: Brandi Gunderson, [address] [place], [address]. tel:[phone] , [place], [place], [address], [place] tel:[phone] Special Testing At 1202 No Information 0 Misbah Jordan. [address] [place] [address] [place], [id number], [place]. tel:[phone] Referring Provider: Julian Crawley, [address] [place] [address] [place], [address]. tel:[phone] [place], [address], [place] tel:[phone] X Ray At 1202 No Information 0 Misbah Jordan. [address] [place] [address] [place], [id number], [place]. tel:[phone] Referring Provider: Julian Crawley, [address] [place] [address] [place], [address]. tel:[phone] Office/New Level [address] [place], [address], [place] tel:[phone] Cardiology At 1202 Coronary artery disease (chief complaint)hy pertension (chief complaint)hy perlipidemia (chief complaint)to bacco use (chief complaint) Mixed hyperlipidem iaEssential (primary) hypertension Atherosclero tic heart disease of eagle coronary artery without angina pectorisToba tobacco packing machine operator abuseCoughBo dy mass index (BMI) 31.0-31.9, adult 0 Misbah Jordan. [address] [place] [address] [place], [id number], [place]. tel:[phone] Referring Provider: Job Ann, [address], [place], [address]. tel:[phone] [address] [place], [address], [place] tel: [phone] Lab At [facility] Mixed hyperlipidem ia 0 Seth Kaiser. [address] , [place], [place], [address], [place]. tel:[phone] Referring Provider: Job Ann, [address], [place], [address]. tel: [phone] Office/Establ ished Level [address] [place], [place], [address], [place] tel: [phone] Family Medicine At [facility] Discuss Heart Score (chief complaint)hy perlipidemia (chief complaint) Elevated coronary artery calcium scoreMixed hyperlipidem iaBody mass index (BMI) 31.0-31.9, adult Nov- 0 Seth Kaiser. [address] , [place], [place], [address], [place]. tel:[phone] Referring Provider: Job Ann, [address] , [place], [address]. tel: [phone] [address] [place], [address], [place] tel: [phone] Zzz [facility] At [place] No Information 0 yR Tee. [address] [place] [address], [address], [place]. tel:[phone] Referring Provider: Randal Raza, [address] [place] [address], [address]. tel: [phone] Preventative Established 40-64 yrs [address] [place], [address], [place] tel: [phone] Family Medicine [facility] Preventive exam (chief complaint) Body mass index (BMI) 32.0-32.9, adultEssenti al (primary) hypertension Tobacco abuseMixed hyperlipidem iaBarrett's esophagus without dysplasiaHyp ogonadism in maleLong term use of drug 0 Seth Kaiser. [address], [place], [place], [address], [place]. tel:[phone] Referring Provider: Jazzy Diaz, [address], [place], [address]. tel:[phone] , [place], [place], [address], [place] tel:[phone] Lab At [facility] Mixed hyperlipidem iaTesticular hypofunction Encounter for screening for malignant neoplasm of prostate 0- 0 Seth Kaiser. [address] , [place], [place], [address], [place]. tel:[phone] Referring Provider: Gricelda Warner, [address] [facility] [address], [place], [address]. tel:[phone] Office/Establ ished Level [address] [place], [place], [address], [place] tel:[phone] Orthopedics At [facility] Knee Pain (chief complaint) Osteoarthrit is of right knee, unspecified osteoarthrit is typeBody mass index (BMI) 32.0-32.9, adult Mar- 1-201 9 Antonio tabares [address] [place] [address] [place], [address], [place]. tel:[phone] Referring Provider: Pranay Alvarez, [address] [place] [address] [place], [address]. tel:[phone] Office/Establ ished Level [address] [place], [address], [place] tel:[phone] Family Medicine At [facility] Follow Up of Hyperlipidem ia (chief complaint)Fo llow Up of Hypertension (chief complaint)GE RD (chief complaint) Hypogonadism in maleLong term use of drugEssentia l (primary) hypertension Mixed hyperlipidem iaBarrett's esophagus without dysplasiaTob acco abuseBody mass index (BMI) 32.0-32.9, [facility] neoplasm of prostate Feb- 9 Sandeepmarbella Job. [address] , [place], [place], [address], [place]. tel:[phone] Referring Provider: Gricelda Warner, [address] [facility] [place] [address], [place], [address]. tel:[phone] [place], [place], [address], [place] tel:[phone] Lab At [facility] Testicular hypofunction Essential (primary) hypertension Feb- 9 Seth Kaiser. [address] [facility], [place], [place], [address], [place]. tel:[phone] Referring Provider: Jazzy Diaz, [address] [facility], [place], [address]. tel:[phone] [place], [address], [place] tel:[phone] [facility] Internal Medicine At [facility] Essential (primary) hypertension Hypogonadism in maleMixed hyperlipidem ia 9 Timmy Madison. [address] [facility] [place], [address], [place], [place], [address], [place]. tel:[phone] Office/Establ ished Level [address] [place], [place], [address], [place] tel:[phone] Orthopedics At [place] 8114 Knee Pain (chief complaint) Osteoarthrit is of right knee, unspecified osteoarthrit is typeBody mass index (BMI) 31.0-31.9, adult Apr-0 9 Antonio tabares [address] [place] [address] [place], [address], [place]. tel:[phone] Referring Provider: Pranay Alvarez, [address] [place] [address] [place], [address]. tel:[phone] Office Consult Level [address] [place], [id number], [place] tel:[phone] Orthopedics At [facility] Knee Pain (chief complaint) Body mass index (BMI) 31.0-31.9, adultOsteoar thritis of right knee, unspecified osteoarthrit is typePain in right knee Nov- 9 Antonio tabares [address] [place] [address] [place], [address], [place]. tel:[phone] Referring Provider: Gricelda Warner, [facility], [place], [address]. tel:[phone] [place], [address], [place] tel:[phone] X Ray At [facility] No Information Nov- 9 Antonio tabares [address] [place] [address] , [place], [address], [place]. tel:[phone] Referring Provider: Pranay Alvarez [address] [place] [address] [place], [address]. tel:[phone] [place], [id number], [place] tel:[phone] Family Medicine At [facility] Pain in right kneeOsteoart hritis of right knee, unspecified osteoarthrit is type Nov-0 9 Timmy Madison. [address], [address], [place], [place], [address], [place]. tel:[phone] Office/Establ ished Level [address] [place], [address], [place] tel:[phone] Family Medicine At [facility] Joint pain (chief complaint) Body mass index (BMI) 31.0-31.9, adultChronic pain of right kneeOther chronic painOsteoart hritis of right knee, unspecified osteoarthrit is type 9 Timmy Madison. [address] [facility] [place], [facility] [address], [place], [place], [id number], [place]. tel:[phone] Referring Provider: Gricelda Warner, [address], [place], [address]. tel: [phone] Office/Establ ished Level [address] [place], [address], [place] tel: [phone] Gastroenter ology At 1202 10-14 day follow up after procedure (chief complaint) Body mass index (BMI) 31.0-31.9, adultBarrett 's esophagus without dysplasia 9 Maddy Tee. [address] [place] [address] [place], [address], [place]. tel:[phone] Referring Provider: Jazzy Diaz, [address] [facility], [place], [address]. tel: [phone] [address] Trista [place], [id number], [place] tel: [phone] Gastroenter ology At 1202 No Information 8 Maddy Tee. [address] [place] [address] Trista [place], [id number], [place]. tel:[phone] Referring Provider: Randal Castañeda, [address] [place] [address] [place], [address]. tel: [phone] Office Consult Level [address] Trista [place], [id number], [place] [phone] Gastroenter ology At 1202 Dysphagia (chief complaint) Body mass index (BMI) 30.0-30.9, adultHeartbu rnDysphagia, unspecified 8 Maddy Tee. [address] [place] [address] Trista [place], [id number], [place]. tel:[phone] Referring Provider: Gricelda Warner, [address], [place], [address]. tel:[phone] Preventative Established 40-64 yrs [address] [place], [address], tel:[phone] Family Medicine [facility] Preventive exam (chief complaint) Encntr for general adult medical exam w/o abnormal findingsEsse ntial (primary) hypertension Hypogonadism in malePersonal history of nicotine dependenceGa stroesophage al reflux disease without esophagitisB dalton mass index (BMI) 31.0-31.9, adultMixed hyperlipidem iaRefused diphtheria-t etanus vaccinePhary ngoesophagea l dysphagia 8 Timmy Madison. [address], [address], [place], [place], [address], [place]. tel:[phone] Referring Provider: Joey Mckeon [address], [place], [address]. tel:[phone] [place], [place], [address], [place] tel:[phone] Lab [facility] Essential (primary) hypertension Testicular hypofunction 8 Timmy Madison. [address], [facility] [address], [place], [id number], . tel:[phone] Referring Provider: Joey Mckeon [address] [place], [address]. tel:[phone] Office/Establ ished Level [address] [place], [address], [place] tel:[phone] Family [facility] Chronic conditions (chief complaint) Essential (primary) hypertension Hypogonadism in malePersonal history of nicotine dependenceGa stroesophage al reflux disease without esophagitis 8 Timmy Madison. [address], [address], [place], [place], [address], [place]. tel:[phone] Referring Provider: Jazzy Diaz [address], [place], [address]. [phone] [place], [address], [place] tel: [phone] Family Medicine At [facility] Testicular hypofunction Essential (primary) hypertension 8 Joe Jazzy. [address], [place], [place], [address], [place]. tel:[phone] Referring Provider: Jazzy Diaz [address], [place], [address]. tel:[phone] Preventative Established 40-64 yrs [address] [place], [address], [place] tel: [phone] Family Medicine [facility] Preventive exam (chief complaint) Encntr for general adult medical exam w/o abnormal findingsEsse ntial (primary) hypertension Testicular hypofunction Gastroesopha geal reflux disease without esophagitisP ersonal history of nicotine dependenceBo dy mass index (BMI) 31.0-31.9, adult Nov- 7 Joe Jazzy. [address], [place], [place], [address], [place]. tel:[phone] Referring Provider: Jazzy Diaz [address], [place], [address]. tel:[phone] [place], [place], [address], [place] tel:[phone] Family [facility] Testicular hypofunction Essential (primary) hypertension 7 Joe Purcell. [address], [place], [place], [address], [place]. tel:[phone] Referring Provider: Jazzy Diaz [address], [place], [address]. tel:[phone] [place], [address], [place] tel: [phone] Surgery At 1202 post OP (chief complaint) Postoperativ e visit Anamaria Peterson. [address] [place] [address], [address], . tel:[phone] Referring Provider: Kristen Conrad, [address] [place] [address], [address]. [phone] , [place], [place], [address], [place] tel:[phone] Surgery At 1202 post OP (chief complaint) Body mass index (BMI) 30.0-30.9, adultPostope rative visit Anamaria Peterson. [address] [place] [address], [address], [place]. tel:[phone] Referring Provider: Kristen Conrad, [address] [place] [address], [address]. tel:[phone] , [place], [place], [address], [place] tel:[phone] Surgery At 1202 Sebaceous cyst (chief complaint) Epidermoid cyst Anamaria Peterson. [address] [place] [address], [address], [place]. tel:[phone] Referring Provider: Jazzy Diaz, [address], [place], [address]. tel:[phone] Office/Establ ished Level [address] , [place], [place], [address], [place] tel:[phone] [facility] hypertension (chief complaint)hy perlipidemia (chief complaint)Hy pogonadism (chief complaint)GE RD (chief complaint)sm oking (chief complaint) Essential (primary) hypertension Hypogonadism in maleGastroes ophageal reflux disease without esophagitisS moking 7 Joe Purcell. [address], [place], [place], [address], [place]. tel:[phone] Referring Provider: Jazzy Diaz [address], [place], [address]. [phone] [place], [address], tel:[phone] Family Medicine [facility] Encntr for general adult medical exam w/o abnormal findings Joe Purcell. [address], [place], [place], [address], [place]. tel:[phone] Referring Provider: Jazzy Diaz, [address], [place], [address]. tel:[phone] [place], [address], [place] tel:[phone] Family [facility] Encntr for general adult medical exam w/o abnormal findings Joe Purcell. [address], [place], [place], [address], [place]. tel:[phone] Referring Provider: Jazzy Diaz [address], [place], [address]. tel:[phone] [place], [address], [place] tel:[phone] [facility] Skin lesion (chief complaint) Epidermoid cyst Joe Purcell. [address], [place], [place], [address], [place]. tel:[phone] Referring Provider: Jazzy Diaz [address], [place], [address]. tel:[phone] Office/Establ ished Level [address] [place], [address], [place] tel:[phone] Family [facility] Skin lesion (chief complaint) Abscess Joe Purcell. [address], [place], [place], [address], [place]. tel:[phone] Referring Provider: Jazzy Diaz [address], [place], [address]. tel:[phone] Office/Establ ished Level [address] , [place], [place], [address], [place] tel:[phone] Family Medicine [facility] Sinus symptoms (acute) (FP) (chief complaint) Acute non-recurren t maxillary sinusitis 6 Joe Purcell. [address], [place], [place], [address], [place]. tel:[phone] Referring Provider: Jazzy Diaz, [address], [place], [address]. [phone] , [place], [place], [address], [place] tel:[phone] Family Medicine [facility] Encntr for general adult medical exam w/o abnormal findings 6 Joe Purcell. [address], [place], [place], [address], [place]. tel:[phone] Referring Provider: Jazzy Diaz [address], [place], [address]. tel:[phone] , [place], [place], [address], [place] tel:[phone] X Ray At 1202 No Information 6 Armando Aguilar. [address] [place] [address], [address], [place]. tel:[phone] Referring Provider: Lauren Roberts, [address] [place] [address], [address]. tel:[phone] Office/Establ ished Level [address] [place], [address], [place] tel:[phone] Orthopedics At 1202 Knee Pain (chief complaint) Primary osteoarthrit is of right knee 6 Armando Aguilar. [address] [place] [address], [address], [place]. tel:[phone] Referring Provider: Jazzy Diaz [address], [place], [address]. tel:[phone] Preventative Established 40-64 yrs [address] Trista [place], [address], [place] tel:[phone] Family [facility] Preventive exam (chief complaint) Encntr for general adult medical exam w/o abnormal findingsEsse ntial (primary) hypertension Body mass index (BMI) 29.0-29.9, adultSmoking Pain in right kneeOther chronic painHypogona dism in male 6 Joe Purcell. [address], [place], [place], [address], [place]. tel:[phone] Referring Provider: Jazzy Diaz [address], [place], [address]. tel:[phone] [place], [address], [place] tel:[phone] [facility] Testicular hypofunction Jun- 6 Joe Purcell. [address], [place], [place], [address], [place]. tel:[phone] Referring Provider: Jazzy Diaz [address], [place], [address]. tel:[phone] [place], [address], [place] tel:[phone] Family [facility] hypertension (chief complaint)hy perlipidemia (chief complaint)Hy pogonadism (chief complaint) Essential (primary) hypertension Hypogonadism in male Dec-0 6 Joe Purcell. [address], [place], [place], [address], [place]. tel:[phone] Referring Provider: Jazzy Diaz [address], [place], [address]. tel:[phone] [place], [address], [place] tel: [phone] Family Medicine [facility] Testicular hypofunction Encntr for general adult medical exam w/o abnormal findings 6 Joe Purcell. [address], [place], [place], [address], [place]. tel:[phone] Referring Provider: Jazzy Diaz, [address], [place], [address]. tel: [phone] [address] , [place], [place], [address], [place] tel: [phone] [facility] [place] external right ear cyst (chief complaint) Cyst on ear 5 Barrett Blanco. [address] [place] [address], [place], [place], [address], [place]. tel:[phone] Referring Provider: Jazzy Diaz, [address] [facility], [place], [address]. tel: [phone] [address] , [place], [place], [address], [place] tel: [phone] Gastroenter ology At [facility] Follow Up of procedure (chief complaint) Benign neoplasm of ascending colon 5 Maddy Tee. [address] [place] [address] , [place], [place], [address], [place]. tel:[phone] Referring Provider: Randal Castañeda, [address] [place] [address] , [place], [address]. tel: [phone] [address] , [place], [place], [address], [place] tel: [phone] Family Medicine [facility] Ear discomfort (chief complaint) Swelling of right earBilateral impacted cerumen 5 Joe Purcell. [address] , [place], [place], [address], [place]. tel:[phone] Referring Provider: Jazzy Diaz [address], [place], [address]. tel:[phone] [place], [place], [address], [place] tel:[phone] Family Medicine At [facility] Preventive exam (chief complaint) No Information 5 Joe Purcell. [address] , [place], [place], [address], . tel:[phone] Referring Provider: Jazzy Diaz, [address], [place], [address]. tel:[phone] , [place], [place], [address], tel:[phone] Family Medicine At [facility] Preventive exam (IM) (chief complaint)Hy pogonadism (chief complaint) No Information 4 Humphrey Webb. [address] [place], [address], . Referring Provider: Job Ann, [address] , [place], [address]. tel:[phone] Family History Family Member Type Diagnosis Age [...] years or older, Fluarix Quad refused Source: Sabrina w Immunization Record Influenza, injectable, quadrivalent, preservative free, 3 yrs or older administered Source: Other Ermias try Payers Payer name Insurance type Covered constitution party ID Authoriza tirichard(s) BCBS - [place]BS[place] [id number] BCBS [facility] - BCBSNC [id number] Social History Type Description Quantity Date Captured Comments Sex Male Smoking Status No Information Chief Complaint And Reason For Visit No Information Reason For Referral Reason For Referral No Information Plan Of Treatment Date Type Action Status Goal Colonoscopy. Due on due Goal CMP. [...] Goal Physical Exam. Due on due Goal Zoster vaccine ( ). Due on due Goal Depression scree edgard. [...] vaccine ( 1st). Due on due Goal Td vaccine. Due [...] due Goal CMP. Due on due Goal Zoster vaccine ( 1st). Due on due Goal Td vaccine. Due [...] vaccine ( 1st). Due on due Goal CMP. Due on [...] due Goal CMP. Due on due Goal Zoster vaccine ( [...] vaccine ( ). Due on due Goal Depression scree edgard. Due on due Goal Colonoscopy. Due on due Goal Physical Exam. Due on due Goal Zoster vaccine ( [...] due Goal Tdap. Due on due Goal Physical Exam. Due on due Goal Depression scree edgard. [...] vaccine ( 1st). Due on due Goal Cologuard (OUTSI DE ORDER). Due on due Goal Lipid panel. Due on due Goal Sigmoidoscopy. Due on due Goal Rubeola Antibody Titer (igG). Due on due Goal CMP. Due on due Goal Depression scree edgard. Due on due Goal Diabetes screeni ng. Due on due Goal Tdap. Due on due Goal Pneumovax 23. Due on 2029 due Goal Physical Exam. Due on due Goal FOBT. Due on due Goal Colonoscopy. Due on due Goal Td vaccine. Due on due Goal Lipid panel. Due on due Goal Td vaccine. Due on due Goal Tdap. Due on due Goal Physical Exam. Due on due Goal Cologuard (OUTSI DE ORDER). Due on due Goal Depression scree edgard. Due on due Goal FOBT. Due on due Goal Sigmoidoscopy. Due on due Goal Diabetes screeni ng. Due on due Goal Influenza vaccin e. Due on due Goal CMP. Due on due Goal Rubeola Antibody Titer (igG). Due on due Goal Colonoscopy. Due on due Goal Dietary manageme nt education, guidance, and counseling completed Goal FOBT. Due on due Goal Rubeola Antibody Titer (igG). Due on due Goal Td vaccine. Due on due Goal Sigmoidoscopy. Due on due Goal Colonoscopy. Due on due Goal Tdap. Due on due Goal Influenza vaccin e. Due on due Goal Physical Exam. Due on due Goal Diabetes screeni ng. Due on due Goal CMP. Due on due Goal Depression scree edgard. Due on due Goal Cologuard (OUTSI DE ORDER). Due on due Goal Lipid panel. Due on 020 due Goal Sigmoidoscopy. Due on due Goal Diabetes screeni ng. Due on due Goal Colonoscopy. Due on due Goal Tdap. Due on due Goal CMP. Due on due Goal Rubeola Antibody Titer (igG). Due on due Goal Depression scree edgard. Due on due Goal FOBT. Due on due Goal Cologuard (OUTSI DE ORDER). Due on due Goal Physical Exam. Due on due Goal Td vaccine. Due on 19 due Goal Influenza vaccin e. Due on due Goal Lipid panel. Due on 020 due Goal Tdap. Due on due Goal Sigmoidoscopy. Due on due Goal Diabetes screeni ng. Due on due Goal FOBT. Due on due Goal Cologuard (OUTSI DE ORDER). Due on due Goal Depression scree edgard. Due on due Goal CMP. Due on due Goal Lipid panel. Due on 019 due Goal Colonoscopy. Due on 026 due Goal Physical Exam. Due on due Goal Influenza vaccin e. Due on due Goal Td vaccine. Due on 19 due Goal Rubeola Antibody Titer (igG). Due on due Goal Depression scree edgard. Due on due Goal Cologuard (OUTSI DE ORDER). Due on due Goal Td vaccine. Due on due Goal FOBT. Due on due Goal Physical Exam. Due on due Goal Colonoscopy. Due on 026 due Goal Diabetes screeni ng. Due on due Goal CMP. Due on due Goal Lipid panel. Due on due Goal Tdap. Due on due Goal Influenza vaccin e. Due on due Goal Sigmoidoscopy. Due on due Goal FOBT. Due on due Goal Physical Exam. Due on due Goal Cologuard (OUTSI DE ORDER). Due on due Goal Td vaccine. Due on due Goal Colonoscopy. Due on due Goal Tdap. Due on due Goal Sigmoidoscopy. Due on due Goal CMP. Due on due Goal Influenza vaccin e. Due on due Goal Diabetes screeni ng. Due on due Goal Depression scree edgard. Due on due Goal Lipid panel. Due on due Goal FOBT. Due on due Goal Cologuard (OUTSI DE ORDER). Due on due Goal CMP. Due on due Goal Td vaccine. Due on due Goal Sigmoidoscopy. Due on due Goal Tdap. Due on due Goal Influenza vaccin e. Due on due Goal Diabetes screeni ng. Due on due Goal Colonoscopy. Due on due Goal Physical Exam. Due on due Goal Depression scree edgard. [...] (OUTSI DE ORDER). Due on due Goal Dietary manageme nt education, guidance, and counseling completed Goal Td vaccine. Due on due Goal Depression scree edgard. Due on due Goal FOBT. Due on due Goal Influenza vaccin e. Due on due Goal Lipid panel. Due on due Goal Physical Exam. Due on due Goal Diabetes screeni ng. Due on due Goal CMP. Due on due Goal Tdap. Due on due Goal Colonoscopy. Due on due Goal Cologuard (OUTSI DE ORDER). Due on due Goal Sigmoidoscopy. Due on due Goal Dietary manageme nt education, guidance, and counseling completed Goal Sigmoidoscopy. Due on due Goal Diabetes screeni ng. Due on due Goal Influenza vaccin e. Due on due Goal Depression scree edgard. Due on due Goal Physical Exam. Due on due Goal Tdap. Due on due Goal Colonoscopy. Due on due Goal Td vaccine. Due on 18 due Goal FOBT. Due on due Goal Microalbumin, ra ndom Urine. Due on due Goal CMP. Due on due Goal Cologuard (OUTSI DE ORDER). Due on due Goal Colonoscopy. Due on due Goal Microalbumin, ra ndom Urine. Due on due Goal FOBT. Due on [...] (OUTSI DE ORDER). Due on due Goal Dietary manageme nt education, guidance, and counseling completed Goal Colonoscopy. Due on due Goal Influenza vaccin e. Due on due Goal Cologuard (OUTSI DE ORDER). Due on due Goal Tdap. Due on due Goal FOBT. Due on due Goal CMP. Due on due Goal Microalbumin, ra ndom Urine. Due on due Goal Physical Exam. Due on due Goal Diabetes screeni ng. Due on due Goal Sigmoidoscopy. Due on due Goal Td vaccine. Due on 18 due Goal Depression scree edgard. Due on due Goal Dietary manageme nt education, guidance, and counseling completed Goal Sigmoidoscopy. Due on due Goal Depression scree edgard. Due on due Goal Microalbumin, ra ndom Urine. Due on due Goal Colonoscopy. Due on 027 due Goal Influenza vaccin e. Due on due Goal Cologuard (OUTSI DE ORDER). Due on due Goal Diabetes screeni ng. Due on due Goal FOBT. Due on due Goal CMP. Due on due Goal Physical Exam. Due on due Goal Tdap. Due on due Goal Td vaccine. Due on 18 due Goal CMP. Due on due Goal Pneumovax 23 due Goal Diabetes screeni ng. Due on due Goal Td vaccine. Due on 17 due Goal FOBT. Due on due Goal Physical Exam. Due on due Goal Colonoscopy. Due on 027 due Goal Microalbumin, ra ndom Urine. Due on due Goal Influenza vaccin e. Due on due Goal Tdap. Due on due Goal Depression scree edgard. Due on due Goal Sigmoidoscopy. Due on due Goal Cologuard (OUTSI DE ORDER). Due on due Goal Lifestyle education regardin g diet completed Goal Tobacco cessation counseling completed Goal Tobacco cessation counseling completed Goal Tdap. Due on due Goal Microalbumin, ra ndom Urine. Due on due Goal Influenza vaccin e. Due on due Goal Td vaccine. Due on 17 due Goal Influenza vaccin e. Due on due Goal Microalbumin, ra ndom Urine. Due on due Goal Td vaccine. Due on 17 due Goal Tdap. Due on due Goal Dietary manageme nt education, guidance, and counseling completed Goal Influenza vaccin e. Due on due [...] Td vaccine. Due on 17 due Goal Td vaccine. Due on 16 due Goal Microalbumin, ra ndom Urine. Due on due Goal Tdap. Due on due Goal Influenza vaccin e. Due on due Goal Td vaccine. Due on 16 due Goal Influenza vaccin e. Due on due Goal Tdap. Due on due Goal Microalbumin, ra ndom Urine. Due on due Goal ECG. Due on due Goal ECG. Due on due Goal Microalbumin, ra ndom Urine. Due on due Goal Td vaccine. Due on 16 due Goal Tdap. Due on due Goal Influenza vaccin e. Due on due Goal Lifestyle education regardin g diet completed Goal Tobacco cessation counseling completed Goal Tobacco cessation counseling completed Referral Ordered: Francis Morejon MD (related to Non-small cell cancer of left lung) ordered Referral Referred To: Francis Morejon MD [address] [place], [place], [phone] Ordered: Referrals: Referrals: Referrals: Oncology. Francis Morejon MD. Consult ordered Referral Ordered: Referrals: Referrals: Pulmonology. Consult ordered Referral Ordered: Referrals: Referrals: Otolaryngology. Consult ordered Referral Referred To: Randal Raza MD [address] [place] [address], [phone] Ordered: Referrals: Cardiology. Randal Raza MD. Consult ordered Referral Ordered: Ren Canela M.D. (related to Osteoarthritis of right knee, unspecified osteoarthritis type) ordered Referral Referred To: Ren Canela M.D. Ordered: Referrals: Alternative Medicine. Ren Canela M.D.. Location: [facility]. Consult ordered Referral Ordered: Referrals: Orthopedic Surgery. [...] Radiol ogy Order CT CHEST WO CONTRAST ([id number]), Collected on: , Sent on: Sent Future Order: Radiol ogy Order XR SCREENING OF EYE FOR DETECTION OF FOREIGN BODY ([id number]), Sent on: Sent Future Order: Lab Order ISisha adames ([id number]), Ordered on: Ordered Future Order: Radiol ogy Order Echo 2D Color Doppler (TTE W/ Doppler, Complete) ([id number]), Collected on: , Sent on: Sent History Of Present Illness Encounter Date Complaint History Of Prese nt Illness Lung cancer The problem is w orsening. Initial symptoms include hoarseness and shortness of breath. He is also experiencing cough, dyspnea and fatigue. Pertinent negatives include abdominal pain, bleeding, chest pain, chills, dizziness, dysuria, fever, headache, hives, insomnia, nausea, night sweats, rash, vomiting and weight loss. Additional information: managed by Dr. Vanegas Shortness of breath continues wi th SOB , but improved from prior Lung Cancer He is also exper iencing cough, dyspnea and fatigue. Pertinent negatives include abdominal pain, bleeding, chest pain, chills, dizziness, dysuria, fever, headache, hives, insomnia, nausea, night sweats, rash, vomiting and weight loss. Additional information: managed by [facility] oncology Dr. Vanegas HFU was admitted to [facility] with infected port and pneumonia COPD (follow up) The COPD (follo w [...] productive cough, purulent sputum and tremors. HFU (comments) This visit was a virtual visit via [facility] due to COVID . The patient understood that they may [...] has agreed to proceed with the visit. tobacco use (comments) reduced n ow; cough and smoking prompted an echocardiogram and a CXR which were ok and cough continued and a CT showed a hilar mass found to be NSCLC with possible spinal metastatic disease on PET and s/p radiation and followed by Pulmonary and Oncology and palliative care. Coronary artery disease hypertension hyperlipidemia tobacco use Coronary artery disease Coronary artery dise ase (comments) new issue with 2020 heart score of 374 which is intermediate [...] no symptoms. knee issues that limit running/walking. hypertension (comments) chronic, stable hyperlipidemia (comments) chroni c, stable lung cancer Initial symptoms include bone pain, [...] PET with hyperactivityprelim bronch results with NSCLC hilar mass The symptoms beg an gradual [...] no unexplained weight lossrare dysphagia with water Vocal Cord dysfunction developed hoarseness overnight 12 weeks agohas seen ENT, Dr. Hyde, laryngoscope with left VC dysfxn Hand arthritis The symptoms are reported as being moderate. 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 Follow Up of Hyperlipidemia Risk factors include [...] and fatigue. Additional information: BP is Controlled. hoarseness (comments) 2-month hi story of hoarseness. [...] are unchanged. smoker for 15 yearsnot painful Coronary artery dise ase (comments) new issue with 2020 heart score of 374 which is intermediate [...] no symptoms. knee issues that limit running/walking. hypertension (comments) chronic, stable hyperlipidemia (comments) chroni c, stable tobacco use (comments) chronic, stable tobacco use Coronary artery disease hyperlipidemia Coronary artery disease hypertension Discuss Heart Score Calcium leve l's OK at this time. hyperlipidemia Risk factors inc fransicoe age over 50. The patient is adhering [...] right. 10-14 day follow up after procedure 10-14 day follow up after procedure (comments) pt returs for foll ow u[esoph path consistent with barretts started on prilsoec 20 daily, still with gerd Dysphagia Dysphagia (comments) pt with cnr onic [...] headache, hematuria, irregular heartbeat/palpitations and visual disturbances. hyperlipidemia The patient is a dhering to medication and follow-up for their hyperlipidemia. Hyperlipidemia management includes statins. Pertinent negatives include chest pain, constipation, diarrhea, dyspnea, hematuria, palpitations and polyuria. Hypogonadism The symptoms hav e been mild and are improving. The patient is here today for a follow up visit. Pertinent history includes use of antihypertensives, hyperlipidemia, hypertension and smoking but not diabetes. smoking The symptoms are reported as being moderate. The symptoms occur constantly. He states the symptoms are chronic. Patient interested in taking meds to help quit GERD The problem is i mproving. There is no radiation of pain. The patient reports heartburn. It occurs randomly. Context: treatment with PPIs. The symptoms are aggravated by fatty foods. The symptoms are relieved by PPI. Pertinent negatives include dyspnea. Skin lesion The problem is m oderate, [...] hematuria, palpitations and polyuria. external right ear cyst external right ear c yst (comments) 6 week history of a persistent fluid filled swelling right external ear. His aspirated the same area only to have the fluid quickly reaccumulated. No history of trauma. Follow Up of procedure pt return s [...] I'm on injections for that. doctor in [facility] had me on q2 wks and doctor here had me on q5d Functional Status Date Functional Assessmen t No [...] adult Assessments Type Assessment Date No Information Patient Care Teams Name Effective Dates (start - stop) Status Members No Information
--- OUTSIDE RECORDS SUMMARY | 2024-08-30 02:48 | XMS_ITS | Continuity of Care Document ---
Author Name [facility] Organization [facility] Care Team Providers Care Cloth Reeler Name Role Phone [facility] Unavailable Unavailable Immunizations Combined list of available immunizations from the Department of Defense and Veterans Affairs facilities. Immunization Series Date Given Administered By Site Reaction Lot Number CVX Code Drug Geophysics Scientist Status Comments Source INFLUENZA, SEASONAL, INJECTABLE 2017 [...] HCS FLU,3 YRS (HISTORICAL) 1998 MELANIA LARSON F 88 complet ed [facility] INFLUENZA, UNSPECIFIED FORMULATION 1996 Reynaldo BECK S 88 complet ed [facility] Results Combined list of recent chemistry, hematology and other laboratory results from Department of Defense and Veterans Affairs, ranging from 15 months to all on record, depending upon the facility. Order Name Results Value Reference Range Date Interpretation Specimen Comments Source COVID-19 MONITOR PANEL (BINAX) SARS-COV-2 (COVID-19) AG [PRESENCE] IN RESPIRATORY SPECIMEN BY RAPID IMMUNOASSAY P 09/04 HH Specimen Type: NARES Comment: Test performed by Kar Henderson. [facility] Test performed on the Binax at [facility]. Result given to Dr. Michel 09/04/22 @ 10:00 by CK. Ordering Provider: ASHLEE RICHARDSON Report Released Date/Time: February 02, 2022 02:22 PM Reporting Lab: [facility] [address] [address] Performing Lab: [facility] [address] [address] [facility]
--- OUTSIDE RECORDS SUMMARY | 2024-08-30 02:48 | XMS_ITS | Continuity of Care Document ---
Author Organization [facility] Address [address] [place] [address] Phone Care Team Providers Care Pluck Trimmer Name Role Phone Unavailable Unavailable Unavailable Advance Directives Directive Yes / No Effective Date File Name No Information Encounters Encounter Description Practice Location Reason(s) For Visit Diagnoses Date Provider Providers Copied on Encounter [facility], [address], [place], [place], [id number], [place] tel:[phone] Imported From Previous EHR No Information No Information Family History Family Member Type Diagnosis Age At Onset No Information Payers Payer name Insurance type Covered republican ID Authoriza tion(s) No Information Social History Type Description Quantity Date Captured Comments Sex Male Smoking Status No Information Chief Complaint And Reason For Visit No Information Reason For Referral Reason For Referral No Information History Of Present Illness Encounter Date Complaint History Of Prese nt Illness No Information Functional Status Date Functional Assessmen t No Information Instructions Date Instruction Additional Infor mation No Information Assessments Type Assessment Date No Information Patient Care Teams Name Effective Dates (start - stop) Status Members No Information
== END 2024-08-29 14:19 | disposition home or self-care (01) ==
LOC: HO.CT 14:18
PROVIDERS: PCP Internal Medicine; Visit Provider Internal Medicine Hypertension Specialist
DX: R16.0 Hepatomegaly, not elsewhere classified (principal)
CPT/HCPCS: 74150

== ENCOUNTER → 2024-08-29 14:21 | Outpatient (BNV) | payer BC, SELFPAY | PROVIDERS: PCP Internal Medicine; Visit Provider Radiology Diagnostic Radiology | DX: R16.0 Hepatomegaly, not elsewhere classified (principal) | CPT/HCPCS: 74150 ==

== ENCOUNTER → 2024-10-12 14:42 | Outpatient (REF) | payer BC, SELFPAY ==
--- NOTE | 2024-10-12 14:44 | CA_ITS ---
Transthoracic Echocardiogram Patient (Last, First, Middle): Quintin Chacon D Gender: Male Date of : 1965 Age: 59 Procedure Date: 10/12/2024 Procedure Type: Transthoracic Echocardiogram Location: OP Height: 175.26 cm Weight: 113.4 kg BSA: 2.27 m2 Heart Rate: bpm BP: 130 / 66 mmHg Advertising Account Manager: Referring MD: Ugo Quintero MD Freight Car Repairer: Levy Kimble MD Symptoms: I42.9 - Cardiomyopathy, unspecified Study Quality: Technically Difficult due to body habitus ECG Rhythm: Ventriculary paced rhythm Conclusions: - 1. Moderately reduced LV ejection fraction at 35-40% 2. Cardiac valvular Dopplers within normal limits 3. Normal RV systolic pressure 4. No gross pericardial effusion Findings Procedure Information The patient declines contrast. Left Ventricle Normal left ventricular cavity size. There is mildly increased left ventricular wall thickness. The left ventricular systolic function is moderately decreased. The visually estimated ejection fraction is between 35 40%. There is moderate global hypokinesis. There is paradoxical septal motion consistent with a right ventricular pacemaker. Spectral Doppler is indicative of an impaired relaxation filling pattern. E/E prime ratio is between 8 and 15 consistent with indeterminate filling pressures. Right Ventricle Normal right ventricular cavity size. There is normal right ventricular systolic function. There is a pacemaker wire seen in the right ventricle. Atria The left atrium is moderately dilated. There is no evidence of interatrial shunt. The right atrium is mildly dilated. A pacemaker wire is identified in the right atrium. Aortic Valve The aortic valve structure and function is likely normal. There is no aortic valve stenosis. There is no aortic valve regurgitation. Mitral Valve Likely normal mitral valve structure and function. There is trace mitral valve regurgitation. There is no mitral valve stenosis. Pulmonic Valve The pulmonic valve was not well visualized. Tricuspid Valve Likely normal tricuspid valve structure and function. There is trace tricuspid valve regurgitation. The right ventricular systolic pressure is normal. The right ventricular systolic pressure is 16 mmHg. Normal right atrial pressure. There is no evidence of pulmonary hypertension. Great Vessels All visible segments of the aorta are normal in size. The pulmonary artery was not well visualized. There is no dilatation of the ascending aorta measuring 3.40 cm. Venous The inferior vena cava is normal in size and collapses greater than 50% with inspiration. Pericardium/Pleural There is no evidence of pericardial effusion. Prior Study Comparison No significant change compared to prior study dated: 09/28/2023. Measurements 2D Linear Measurements IVSd: 1.27 0.6-0.9/0.6-1.0 cm LVIDd: 5.25 3.9-5.3/4.2-5.9 cm LVIDd Index: 2.31 2.4-3.2/2.2-3.1 cm/m2 LVIDs: 4.04 2.0-3.6 cm LVPWd: 1.26 0.7-1.1 cm Ao Root: 3.80 2.1-3.5 cm LA Diam: 5.00 2.7-3.8/3.0-4.0 cm LAIDs Index: 2.20 1.5-2.3 cm/m2 LV Mass: 339.26 67-162/88-224 g LV Mass Index: 149.45 43-95/49-115 g/m2 LVOT Diam: 2.30 3.0+(-)1.3 cm 2D Systolic Function EF 4C: 35.60 >55% EF 2C: 24.70 >55% EF BiP: 35.50 >55% Mitral Valve MV Pk E: 0.73 MV Decel Time: 149.00 E'Lateral: 9.03 E'Medial: 6.09 E/E' Med: 12.00 E/E' Lat: 8.10 PHT: 44.00 MVA PHT: 5.00 Decel Grant: 4.89 Aortic Valve AoV Pk Andrei: 1.31 AoV Mn Andrei: 0.96 AoV VTI: 0.27 AoV Pk Grad: 7.00 Aov Mn Grad: 4.00 SAKINA Cont.VTI: 2.08 LVOT LVOT Pk Andrei: 0.69 LVOT Mn Andrei: 0.46 LVOT VTI: 0.14 LVOT Pk Grad: 2.00 LVOT Mn Grad: 1.00 LVOT Diam: 2.30 LVOT Area: 4.15 Diastolic Function MV Pk E: 0.73 E'Medial: 6.09 E/E' Med: 12.00 E' Laterial: 9.03 E/E' Lat: 8.10 Right Ventricle TAPSE (mm): 30.00 Tricuspid Valve TR Pk Andrei: 1.78 TR Pk Grad: 13.00 RA Press: 3.00 RVSP: 16.00 Great Vessels Aorta Ao Root-2D: 3.80 2.0-3.7 cm Ao Asc: 3.40 2.1-3.4 cm Pulmonary Valve PV Pk Andrei: 0.92 Peak PV Grad: 3.00 Updated in Other Vendor System with Status of Final Levy Kimble MD electronically signed on 10/14/2024 11:58:53 AM with status of Final
--- OUTSIDE RECORDS SUMMARY | 2024-10-12 16:08 | XMS_ITS ---
Author Organization [facility] Address [address] [place] [address] Care Team Providers Care Vegetable Tester Name Role Phone Quan RUCKER, [place] Primary Care Provider Unava ilable Candy Sandhu Unavailable [phone] REASON FOR VISIT NS 06/05/24 Encounters Encounter Location Date Provider Diagnosis [facility] [address] [place] [address] 06/06/2024 Candy Sandhu Plan Of Treatment Next Appt Details Provider Name:Candy ruiz, 10/30/2024 04:00:00 PM, [address] [place], [address], Progress Notes * Harris CHACONOB:1965 (59 yo M)Acc No.[id number]:06/06/2024 Patient:?Quintin Chacon :1965???Age:59 Y???Sex:Male Address:[address] [place] [address], [address] * true * Date:? Generated for Printi ng/Fagracielag/eTransmitting on:?10/12/2024 04:08 PM EST
--- OUTSIDE RECORDS SUMMARY | 2024-10-12 16:08 | XMS_ITS ---
Author Organization [facility] [place] Address [address] [facility] [place] [address] Care Team Providers Care Artificial Plastic Eye Maker Name Role Phone Quan RUCKER, Ronnell Primary Care Provider Unava ilCandy Rosario Unavailable [phone] Allergies No Known Allergies REASON FOR VISIT [...] Problem Acquired hammer toe of right foot (9124885103875 105) Other hammer toe(s) (acquired), right foot (M20.41) Active confirmed Problem Acquired hammer toe of left foot (3920988550428 103) Other hammer toe(s) (acquired), left foot (M20.42) Active confirmed Vital Signs Height 5ft9in in 08/07/2024 Weight 250 lbs 08/07/2024 BMI 36.91 kg/m2 08/07/2024 Blood pressure systolic 130 mm Hg 08/07/20 24 Blood pressure diastolic 90 mm Hg 024 Encounters Encounter Location Date Provider Diagnosis [facility] [place] [address] [place] [address] 08/07/2024 Candy Sandhu Type 2 diabetes mellitus [...] Reason: Provider Name:Candy ruiz, 10/30/2024 04:00:00 PM, [address] [place] [address], [id number], Procedure Notes * Category Sub-Category Detail Notes [...] use of a nail nipper and/or dremel-type computer numerical control grinder, to a more viable healthy nail plate or bed tissue 6-10. Silver nitrate used for any petechial bleeding as necessary. Definitive antifungal treatment options have been reviewed and discussed with the patient. The patient chooses, no pharmaceutical tx - 03102 Keratoma Treatment Parring or Cutting o f Benign Hyperkeratotic Lesion(s) 84169 ( More than 4 Lesions ) - The Benign hyperkeratotic lesions, as described above were pared, and/or cut utilizing a sterile 15 blade, tissue nippers, and/or dremel Progress Notes * Marisela CHACON:1965 (59 yo M)Acc No.[id number]:08/07/2024 Progress Note Patient:?Quintin CHACON Provider:?Candy Sandhu DPM :1965???Age:59 Y???Sex:Male Santy e:08/07/2024 Address:[address] [place] [address] Pcp:Ronnell Glass MD Subjective: * Chief Complaints: [...] MOUTH DAILY Oral , Notes to Pharmacist: E559,[facility]/Device Kit USE DIRECTED TO [...] use of a nail nipper and/or dremel-type computer numerical control grinder, to a more viable healthy nail plate or bed tissue 6-10. Silver nitrate used for any petechial bleeding as necessary. Definitive antifungal treatment options have been reviewed and discussed with the patient. The patient chooses, no pharmaceutical tx - 12423.?Keratoma Treatment:?Parring or Cutting of Benign Hyperkeratotic Lesion(s)?28897 ( More than 4 Lesions ) - The Benign hyperkeratotic lesions, as described above were pared, and/or cut utilizing a sterile 15 blade, tissue nippers, and/or dremel.? * Procedure Codes:?90475 DEBRI DE NAIL, 6 OR MORE, Modifiers: XS 02042 TRIM SKIN LESIONS, OVER 4, Modifiers: XS [...] states he will try going to the OR.?Shoe Gear Counseling:?SHOE Rx - The patient was [...] Sign off status: Completed true * Provider:?Candy Sandhu, ARNIE Date:? Generated for Carine shaw/Negrito/Kassy on:?10/12/2024 04:08 PM EST History and Physical Notes * HPI [...] Eye Exam:: no retin opathy Vascular DP PULSES (B): 1/4 , RIGHT , 2/4 , LEFT PT PULSES (B): 1/4 , RIGHT , 2/4 , LEFT CAPILLARY FILL TIME: 4 secs. per digit TEMPERTURE GRADIENT (C): normal, warm to cool, proximal to distal, B/L, B/L TROPHIC CONDITION-TEXTURE/ELASTICITY/TURGOR/HAIR GROWTH (B): decreased, B/L EDEMA (C): 4/4 , Foot , Right PIGMENTATION: normal, B/L Nails NAILS are: Elongated, overg rown, dystrophic, lytic, greater than 3mm thick, discolored and friable with crumbly malodorous subungual debris , with dull to no pain on palpation due to neuropathy , 1-5 Left foot , 1-4 Right foot
--- OUTSIDE RECORDS SUMMARY | 2024-10-12 16:09 | XMS_ITS | Continuity of Care Document ---
Author Organization [facility] Address [address] [place] [address] Phone Care Team Providers Care Litigation Support Analyst Name Role Phone [facility] Unavailable Unavailable Allergies, Adverse Reactions, Alerts Substance [...] Active Procedures Procedure Date CONTACT LENS FITTING [facility] Tech 0 EYE EXAM & TREATMENT REFRACTION EYE EXAM & TREATMENT REFRACTION [facility] Tech CONTACT LENS FITTING [facility] Tech 9 OFFICE/OUTPATIENT VISIT, EST OFFICE/OUTPATIENT VISIT, EST REFRACTION [facility] Tech CONTACT LENS FITTING [facility] Tech 8 EYE EXAM & TREATMENT EYE EXAM & TREATMENT CONTACT LENS FITTING CTL Tech 7 REFRACTION CTL Tech EYE EXAM & TREATMENT CONTACT LENS FITTING CTL Tech 6 REFRACTION [facility] Tech EYE EXAM ESTABLISHED [facility] OFFICE/OUTPATIENT VISIT, NEW Advance Directives Directive Yes / No Effective Date File Name No Information Encounters Encounter Description Practice Location Reason(s) For Visit Diagnoses Date Provider Providers Copied on Encounter [facility] [address] [place], [place], [id number], tel:[phone] [facility] No Information [facility] . [address] [place] [address], [id number]. tel:[phone] Referring Provider: Radha Stewart [facility] [address], [place], [address]. tel:[phone] [facility] [address] [place] [address], [id number], [place] tel:[phone] [facility] Contact lens evaluation (chief complaint) No Information 0 Mariel Garcia [facility] [address], [place], [address], [place]. tel:[phone] Referring Provider: Radha Stewart [address], [place], [address]. tel:[phone] [facility] [address] [place], [place], [id number], [place] tel:[phone] [facility] routine exam (chief complaint) PresbyopiaNu clear Sclerosis OUCentral corneal ulcer, right eye 0 Mariel tabares [address] [facility] [address], [place], [address], [place]. tel:[phone] Referring Provider: Radha Stewart [address], [place], [address]. tel:[phone] [facility] [address] [place], [place], [id number], [place] tel:[phone] [facility] comprehensiv e exam (chief complaint) PresbyopiaNu clear Sclerosis OUCentral corneal ulcer, right eye 9 Mariel tabares [address] [place] [address] , [place], [address], [place]. tel:[phone] Referring Provider: Pranay Floyd [facility] , [place], [address]. tel:[phone] OFFICE/OUTPA TIENT VISIT, EST [facility] [address] [place] [address], [id number], [place] tel:[phone] [place] 3 day recheck Corneal Ulcer (chief complaint) Central corneal ulcer, right eye 8 Faustino Del Angel. [address] [place] [address], [id number], [place]. tel:[phone] Referring Provider: Pranay Floyd [facility] , [place], [address]. tel:[phone] OFFICE/OUTPA TIENT VISIT, EST [facility] [address] [place] [address], [id number], [place] tel:[phone] [facility] FBS (chief complaint) Central corneal ulcer, right eye 8 Faustino Del Angel. [address] [place] [address], [id number], [place]. tel:[phone] Referring Provider: Pranay Floyd [facility] , [place], [address]. tel:[phone] [facility] [address] [place] [address], [id number], [place] tel:[phone] [facility] No Information 8 Mariel tabares [facility] , [place], [address], [place]. tel:[phone] Referring Provider: Radha Stewart [facility] [address], [place], [address]. tel:[phone] [facility] [address] [place] [address], [id number], [place] tel:[phone] [facility] comprehensiv e exam (chief complaint) Nuclear Sclerosis OUPresbyopia 8 Mariel tabares [facility] [address], [place], [address], [place]. tel:[phone] Referring Provider: Radha Stewart [address], [place], [address]. tel:[phone] [facility] [address] [place] [address], [id number], [place] tel:[phone] [facility] comprehensiv e exam (chief complaint) Age-related nuclear cataract, bilateralPre sbyopia 7 Mariel tabares [facility] [address], [place], [address], [place]. tel:[phone] Referring Provider: Radha Stewart [address], [place], [address]. tel:[phone] [facility] [address] [place] [address], [id number], [place] tel:[phone] [facility] comprehensiv e exam (chief complaint) Age-related nuclear cataract, bilateralPre sbyopia 0 6 Mariel Garcia [facility] [address], [place], [address], [place]. tel:[phone] Referring Provider: Radha Stewart [address], [place], [address]. tel:[phone] [facility] [address] [place] [address], [id number], tel:[phone] [facility] metal FB (chief complaint) Foreign body in post wall of eye 5 Bubba Vela. [address] [facility] , [place], [place], [id number], . tel:[phone] Referring Provider: Pranay Floyd [address] [place] [address] , [place], [address]. tel:[phone] OFFICE/OUTPA TIENT VISIT, [facility] [address] [facility], [place], [place], [id number], tel:[phone] [facility] metal in eye (chief complaint) Foreign body in post wall of eye [address] [place] [address] , [place], [address], [place]. tel:[phone] Referring Provider: Pranay Floyd [address] [place] [address] , [place], [address]. tel:[phone] Family History Family Member Type Diagnosis Age At Onset Mother Problem (finding) Heart disease Payers Payer name Insurance type Covered libertarian ID Authortanga reji(s) [facility] [id number] Social History Type Description Quantity Date Captured [...] No Information Instructions Date Instruction Additional Infor matcoy Impression/Plan Related to Centr al corneal ulcer, right eye Impression/Plan Related to Nucle ar Sclerosis OU Impression/Plan Related to Presb yopia Impression/Plan Related to Centr al corneal ulcer, right eye Impression/Plan Related to Nucle ar Sclerosis OU Impression/Plan Related to Presb yopia As scheduled in 02/17 9 for full [...] w. CC and Lesley Related to Presbyopia Follow up - RTC 1yr DFE/ CTL eval w. CC and Lesley Related to Presbyopia Impression/Plan - Ne w glasses and CTL rx given to patient today to help with blurred DVA and trouble reading. Call if VA changes. Related to Presbyopia Impression/Plan - No n-surgical [...]
--- OUTSIDE RECORDS SUMMARY | 2024-10-12 16:09 | XMS_ITS | Continuity of Care Document ---
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 Large jt. bursa (shoulder, [...] Diagnoses Date Provider Providers Copied on Encounter [address] , [place], [place], [id number], [place] tel:[phone] No Information 3 Joe Purcell. [address] [facility], [place], [place], [id number], [place]. tel:[phone] Office/Establ ished Level [address] , [place], [place], [address], [place] tel:[phone] Pulmonary Lung cancer (chief complaint)Sh ortness of breath (chief complaint) Non-small cell cancer of left lungShortnes s of breathTobacc o abuseBody mass index (BMI) 29.0-29.9, adult Dec-2 1 Juanjose Jara. [address] [place] [address], [address], [place]. tel:[phone] Primary Practice Provider: Job Ann, [address] [facility], [place], [address]. tel:[phone] Provider: Estefani Moulton, [address] [place] [address], [address]. tel:[phone] , [place], [place], [address], [place] tel:[phone] [facility] No Information 1 Seth Kaiser. [address] [facility], [place], [place], [address], [place]. tel:[phone] Office/Establ ished Level [address] , [place], [place], [address], [place] tel:[phone] Pulmonary HFU (chief complaint)CO PD (follow up) (chief complaint)Veronica ng Cancer (chief complaint) Non-small cell cancer of left lungAbnormal findings on diagnostic imaging of lungTobacco abuseBody mass index (BMI) 28.0-28.9, adult Feb- 1 Juanjose Jara. [address] [place] [address], [address], [place]. tel:[phone] Primary Practice Provider: Job Ann, [address], [place], [address]. tel:[phone] ring Provider: Estefani Moulton, [address] [place] [address], [place], [address]. tel:[phone] , [place], [place], [id number], [place] tel:[phone] Scan At [facility] No Information 1 Juanjose Jara. [address] [place] [address], [address], [place]. tel:[phone] Referring Provider: Estefani Moulton, [address] [place] [address], [address]. tel:[phone] , [place], [place], [address], [place] tel:[phone] Internal Medicine At [facility] No Information 1 Maddy Tee. [address] [place] [address] , [place], [place], [address], [place]. tel:[phone] , [place], [place], [address], [place] tel:[phone] Pulmonary Shortness of breath 1 Juanjose Jara. [address] [place] [address], [address], [place]. tel:[phone] SUBSEQUENT HOSPITAL CARE [address] [place], [address], [place] tel: [phone] [facility] IP No Information 0 Jeff Dennison. [address] [place] [address], [address], [place]. tel:[phone] Referring Provider: Juma Aguilar, [address] [place] [address], [address]. tel: [phone] Initial Hospital Care [address] , [place], [place], [address], [place] tel: [phone] [facility] IP No Information 0 Jori Bond. [address] [place] [address], [address], [place]. tel:[phone] Referring Provider: Varun Hsieh, [address] [place] [address], [address]. tel: [phone] [facility] [address] , [place], [place], [id number], [place] tel: [phone] [facility] IP No Information 0 Antonio Mota. [address] [place] [address], [address], [place]. tel:[phone] Referring Provider: Nakul Alvarez, [address] [place] [address], [address]. tel: [phone] INPATIENT CONSULTATION [address] , [place], [place], [address], [place] tel: [phone] [facility] IP No Information 0 Jeff Dennison. [address] [place] [address], [address], [place]. tel:[phone] Referring Provider: Juma Aguilar, [address] [place] [address], [address]. tel: [phone] [address] , [place], [place], [address], [place] tel: [phone] [facility] IP No Information 0 Valarie Garrison. [address] [place] [address], [address], [place]. tel:[phone] Referring Provider: Bladimir Sheppard [address] [place] [address], [address]. tel:[phone] [facility]ARE [address] [place], [address], tel: [phone] [facility] IP No Information Dec-2 0 Antonio Mota. [address] [place] [address], [address], [place]. tel:[phone] Referring Provider: Nakul Alvarez, [address] [place] [address], [address]. tel: [phone] Office/Establ ished Level [address] [place], [address], [place] tel: [phone] Cardiology At [facility] Coronary artery disease (chief complaint)hy pertension (chief complaint)hy perlipidemia (chief complaint)to bacco use (chief complaint) Mixed hyperlipidem iaEssential (primary) hypertension Atherosclero tic heart disease of [place] coronary artery without angina pectorisToba senior patient account representative abuseBody mass index (BMI) 28.0-28.9, adult Dec-0 0 Misbah Jordan. [address] [place] [address] Dr [place], [place], [id number], [place]. tel:[phone] Referring Provider: Job Ann, [address] , [place], [address]. tel:[phone] Office/Establ ished Level [address] [place], [address], [place] tel:[phone] Pulmonary lung cancer (chief complaint) Non-small cell cancer of left lungShortnes s of breathBody mass index (BMI) 28.0-28.9, adult Dec-0 0 Juanjose Jara. [address] [place] [address], [address], [place]. tel:[phone] Primary Practice Provider: Job Ann, [address] , [place], [address]. tel:[phone] ring Provider: Estefani Moulton, [address] [place] [address], [address]. tel:[phone] , [place], [place], [address], [place] tel:[phone] MRI At 1202 Non-small cell cancer of left lung Sep-0 0 Juanjose Jara. [address] [place] [address], [address], [place]. tel:[phone] , [place], [place], [address], [place] tel:[phone] X Ray At 1202 No Information Sep-0 0 Juanjose Jara. [address] [place] [address], [address], [place]. tel:[phone] Referring Provider: Estefani Moulton, [address] [place] [address], [address]. tel:[phone] , [place], [place], [address], [place] tel:[phone] Pulmonary No Information Sep-0 0 Juanjose Jara. [address] [place] [address], [facility], [place]. tel:[phone] Referring Provider: Job Ann, [address], [place], [address]. tel:[phone] Office/Establ ished Level [address] , [place], [place], [address], [place] tel:[phone] Clinic Virtual fu after pet (chief complaint) Non-small cell cancer of left lungBody mass index (BMI) 28.0-28.9, adult Aug-2 0 Juanjose Jara. [address] [place] [address], [address], [place]. tel:[phone] Primary Practice Provider: Job Ann [address], [place], [address]. tel:[phone] ring Provider: Job Ann, [address], [place], [address]. tel:[phone] [address] , [place], [place], [address], [place] tel: [phone] [facility] OP No Information 0 Elieser Villegas. [address] [place] [address] , [place], [place], [address], [place]. tel:[phone] Referring Provider: Bakari Mon, [address] [place] [address] , [place], [address]. tel: [phone] [address] , [place], [place], [address], [place] tel: [phone] Pulmonary Hilar mass 0 Juanjose Jara. [address] [place] [address], [facility], . tel:[phone] Office Consult Level [address] , [place], [place], [address], [place] tel: [phone] Pulmonary hilar mass (chief complaint)Vo heidi Cord dysfunction (chief complaint) Hilar massSolitary pulmonary noduleParaly sis of vocal cords and larynx, unilateralBo dy mass index (BMI) 30.0-30.9, adult Apr-0 0 Juanjose Jara. [address] [place] [address], [facility], [place]. tel:[phone] Primary Practice Provider: Job Ann, Joey [address], [place], [address]. tel: [phone] ring Provider: Job Ann, [address], [place], [address]. tel:[phone] [address] , [place], [place], [address], [place] tel: [phone] Pulmonary Hilar mass 0 Juanjose Medina [address] [place] [address], [facility], [place]. tel:[phone] Referring Provider: Estefani Moulton, [address], [place], [address]. tel:[phone] Office/Establ ished Level [address] [place], [id number], [place] tel:[phone] [facility] Follow Up of Hyperlipidem ia (chief complaint)Fo llow Up of Hypertension (chief complaint)Hy pogonadism (chief complaint)Vyas nd arthritis (chief complaint) Mixed hyperlipidem iaHilar massEssentia l (primary) hypertension Hypogonadism in maleLong term use of drugBody mass index (BMI) 29.0-29.9, adult 0 Seth Kaiser. [address] , [place], [place], [address], [place]. tel:[phone] Referring Provider: Job Ann, [address] [facility], [place], [address]. tel:[phone] , [place], [place], [address], [place] tel:[phone] [facility] No Information 0 Seth Kaiser. [address] [place], [place], [address], [place]. tel:[phone] [place], [address], [place] tel:[phone] Lab [facility] Testicular hypofunction Other terminal block assembler (current) drug therapyMixed hyperlipidem ia 0 Seth Kaiser. [address] [place], [place], [address], [place]. tel:[phone] Referring Provider: Job Ann, [address] , [place], [address]. tel:[phone] [place], [address], [place] tel:[phone] Family Medicine At [facility] 0 Seth Kaiser. [address], [place], [place], [address], [place]. tel:[phone] , [place], [address], [place] tel: [phone] Family Medicine [facility] 0 Seth Kaiser. [address], [place], [place], [address], [place]. tel:[phone] , [place], [place], [address], US tel: [phone] CT Scan At [facility] Essential (primary) hypertension 0 Barrett Blanco. [address] [place] [address], [id number], [place]. tel:[phone] Referring Provider: Job Ann, [address] , [place], [address]. tel:[phone] Office Consult Level [address] [place], [address], [place] tel:[phone] ENT At [place] [address] hoarseness (chief complaint) DysphoniaPar alysis of vocal cords and larynx, unilateralBo dy mass index (BMI) 30.0-30.9, adult 0 Barrett Blanco. [address] [place] [address], [id number], [place]. tel:[phone] Referring Provider: Job Ann, [address], [place], [address]. tel:[phone] [place], [address], [place] tel:[phone] Family Medicine At [facility] Change in voice 0 Seth Kaiser. [address], [place], [place], [address], [place]. tel:[phone] Office/Establ ished Level [address] [place], [address], [place] tel:[phone] Clinic Virtual voice loss (chief complaint) Laryngitis 0 Jalyn Paz. [address] [place], [address], [place]. tel:[phone] Referring Provider: Brandi Gunderson, [address] [place], [address]. tel:[phone] , [place], [address], [place] tel:[phone] Special Testing At 1202 No Information 0 Misbah Jordan. [address] [place] [address] [place], [id number], [place]. tel:[phone] Referring Provider: Julian Crawley, [address] [place] [address] [place], [address]. tel:[phone] [place], [address], [place] tel:[phone] X Ray At 1202 No Information 0 Misbah Jordan. [address] [place] [address] [place], [address], [place]. tel:[phone] Referring Provider: Julian Crawley, [address] [place] [address] [place], [address]. tel:[phone] Office/New Level [address] [place], [address], [place] tel:[phone] Cardiology At 1202 Coronary artery disease (chief complaint)hy pertension (chief complaint)hy perlipidemia (chief complaint)to bacco use (chief complaint) Mixed hyperlipidem iaEssential (primary) hypertension Atherosclero tic heart disease of [place] coronary artery without angina pectorisToba senior patient account representative abuseCoughBo dy mass index (BMI) 31.0-31.9, adult 0 Misbah Jordan. [address] [place] [address] [place], [id number], [place]. tel:[phone] Referring Provider: Job Ann, [address], [place], [address]. tel: [phone] [address] [place], [address], [place] tel: [phone] Lab At [facility] Mixed hyperlipidem ia 0 Seth Kaiser. [address] , [place], [place], [address], [place]. tel:[phone] Referring Provider: Job Ann, [address], [place], [address]. tel: [phone] Office/Establ ished Level [address] , [place], [place], [address], [place] tel: [phone] Family Medicine At [facility] Discuss Heart Score (chief complaint)hy perlipidemia (chief complaint) Elevated coronary artery calcium scoreMixed hyperlipidem iaBody mass index (BMI) 31.0-31.9, adult Nov- 0 Seth Kaiser. [address] , [place], [place], [address], [place]. tel:[phone] Referring Provider: Job Ann, [address] , [place], [address]. tel: [phone] [address] [place], [address], [place] tel: [phone] [facility] CT At [place] No Information 0 Ry Tee. [address] [place] [address], [address], [place]. tel:[phone] Referring Provider: Randal Raza, [address] [place] [address], [address]. tel: [phone] Preventative Established 40-64 yrs [address] [place], [address], [place] tel: [phone] Family Medicine [facility] Preventive exam (chief complaint) Body mass index (BMI) 32.0-32.9, adultEssenti al (primary) hypertension Tobacco abuseMixed hyperlipidem iaBarrett's esophagus without dysplasiaHyp ogonadism in maleLong term use of drug 0 Seth Kaiser. [address], [place], [place], [address], [place]. tel:[phone] Referring Provider: Jazzy Diaz, [address], [place], [address]. tel:[phone] , [place], [place], [address], [place] tel:[phone] Lab At [facility] Mixed hyperlipidem iaTesticular hypofunction Encounter for screening for malignant neoplasm of prostate 0- 0 Seth Kaiser. [address], [place], [place], [address], [place]. tel:[phone] Referring Provider: Gricelda Warner, [address] [facility] [address], [place], [address]. tel:[phone] Office/Establ ished Level [address] [place], [id number], [place] tel:[phone] Orthopedics At [facility] Knee Pain (chief complaint) Osteoarthrit is of right knee, unspecified osteoarthrit is typeBody mass index (BMI) 32.0-32.9, adult Mar--201 9 Antonio tabares [address] [place] [address] [place], [address], [place]. tel:[phone] Referring Provider: Pranay Alvarez, [address] [place] [address] [place], [address]. tel:[phone] Office/Establ ished Level [address] [place], [address], [place] tel:[phone] [facility] Follow Up of Hyperlipidem ia (chief complaint)Fo llow Up of Hypertension (chief complaint)GE RD (chief complaint) Hypogonadism in maleLong term use of drugEssentia l (primary) hypertension Mixed hyperlipidem iaBarrett's esophagus without dysplasiaTob acco abuseBody mass index (BMI) 32.0-32.9, [facility] malignant neoplasm of prostate Feb- 9 Sandeepmarbella Job. [address] , [place], [place], [address], [place]. tel:[phone] Referring Provider: Gricelda Warner, [address] [facility] [place] [address], [place], [address]. tel:[phone] [place], [address], [place] tel: [phone] Lab At [facility] Testicular hypofunction Essential (primary) hypertension Feb- 9 Steh Kaiser. [address] , [place], [place], [address], [place]. tel:[phone] Referring Provider: Jazzy Diaz, [address] [facility], [place], [address]. tel:[phone] [address] [place], [address], [place] tel: [phone] [facility] Internal Medicine At [facility] Essential (primary) hypertension Hypogonadism in maleMixed hyperlipidem ia 9 Timmy Madison. [address] [facility] Alexia, [address], [place], [place], [address], [place]. tel:[phone] Office/Establ ished Level [address] [place], [address], [place] tel:[phone] Orthopedics At [place] 8114 Knee Pain (chief complaint) Osteoarthrit is of right knee, unspecified osteoarthrit is typeBody mass index (BMI) 31.0-31.9, adult Apr-0 9 Antonio tabares [address] [place] [address] [place], [address], [place]. tel:[phone] Referring Provider: Pranay Alvarez, [address] [place] [address] [place], [address]. tel:[phone] Office Consult Level [address] [place], [address], [place] tel:[phone] Orthopedics At [facility] Knee Pain (chief complaint) Body mass index (BMI) 31.0-31.9, adultOsteoar thritis of right knee, unspecified osteoarthrit is typePain in right knee Nov- 9 Antonio tabares [address] [place] [address] [place], [address], [place]. tel:[phone] Referring Provider: Gricelda Warner, [facility] [facility] [facility] [address], [place], [address]. tel:[phone] [place], [address], [place] tel:[phone] X Ray At [facility] No Information Nov- 9 Antonio tabares [address] [place] [address] [place], [address], [place]. tel:[phone] Referring Provider: Pranay Alvarez [address] [place] [address] [place], [address]. tel:[phone] [place], [address], [place] tel:[phone] [facility] Pain in right kneeOsteoart hritis of right knee, unspecified osteoarthrit is type Mar-0 9 Timmy Madison. [address] [facility], [address], [place], [place], [address], [place]. tel:[phone] Office/Establ ished Level [address] [place], [address], [place] tel:[phone] [facility] Joint pain (chief complaint) Body mass index (BMI) 31.0-31.9, adultChronic pain of right kneeOther chronic painOsteoart hritis of right knee, unspecified osteoarthrit is type 9 Timmy Madison. [address] [facility] Alexia, [address], [place], [place], [address], [place]. tel:[phone] Referring Provider: Gricelda Warner, [address] [facility] [address], [place], [address]. tel: [phone] Office/Establ ished Level [address] [place], [address], [place] tel: [phone] Gastroenter ology At 1202 10-14 day follow up after procedure (chief complaint) Body mass index (BMI) 31.0-31.9, adultBarrett 's esophagus without dysplasia 9 Maddy Tee. [address] [place] [address] [place], [address], [place]. tel:[phone] Referring Provider: Jazzy Diaz, [address] [facility], [place], [address]. tel: [phone] [address] [place], [address], [place] tel: [phone] Gastroenter ology At 1202 No Information 8 Maddy Tee. [address] [place] [address] [place], [address], [place]. tel:[phone] Referring Provider: Randal Castañeda, [address] [place] [address] [place], [address]. tel: [phone] Office Consult Level [address] [place], [address], [place] tel: [phone] Gastroenter ology At 1202 Dysphagia (chief complaint) Body mass index (BMI) 30.0-30.9, adultHeartbu rnDysphagia, unspecified 8 Maddy Tee. [address] [place] [address] [place], [address], [place]. tel:[phone] Referring Provider: Gricelda Warner, [address], [place], [address]. tel:[phone] Preventative Established 40-64 yrs [address] [place], [address], tel:[phone] Family Medicine [facility] Preventive exam (chief complaint) Encntr for general adult medical exam w/o abnormal findingsEsse ntial (primary) hypertension Hypogonadism in malePersonal history of nicotine dependenceGa stroesophage al reflux disease without esophagitisB dalton mass index (BMI) 31.0-31.9, adultMixed hyperlipidem iaRefused diphtheria-t etanus vaccinePhary ngoesophagea l dysphagia 8 Timmy Madison. [address], [address], [place], [place], [address], [place]. tel:[phone] Referring Provider: Joey Mckeon [address], [place], [address]. tel:[phone] [place], [address], [place] tel:[phone] Lab [facility] Essential (primary) hypertension Testicular hypofunction 8 Timmy Madison. [address], [facility] 300[place], [place], [address], [place]. tel:[phone] Referring Provider: Joey Mckeon [address] [place], [address]. tel:[phone] Office/Establ ished Level [address] [place], [address], [place] tel:[phone] Family Medicine [facility] Chronic conditions (chief complaint) Essential (primary) hypertension Hypogonadism in malePersonal history of nicotine dependenceGa stroesophage al reflux disease without esophagitis 8 Timmy Madison. [address], [address], [place], [place], [address], [place]. tel:[phone] Referring Provider: Jazzy Diaz [address], [place], [address]. tel: [phone] [address] [place], [address], [place] tel: [phone] Family Medicine At [facility] Testicular hypofunction Essential (primary) hypertension 8 Joe Jazzy. [address], [place], [place], [address], [place]. tel:[phone] Referring Provider: Jazzy Diaz [address], [place], [address]. tel: [phone] Preventative Established 40-64 yrs [address] [place], [address], [place] tel: [phone] [facility] Preventive exam (chief complaint) Encntr for general adult medical exam w/o abnormal findingsEsse ntial (primary) hypertension Testicular hypofunction Gastroesopha geal reflux disease without esophagitisP ersonal history of nicotine dependenceBo dy mass index (BMI) 31.0-31.9, adult Nov- 7 Joe Jazzy. [address], [place], [place], [address], [place]. tel:[phone] Referring Provider: Jazzy Diaz [address], [place], [address]. tel: [phone] [address] [place], [place], [address], [place] tel: [phone] [facility] Testicular hypofunction Essential (primary) hypertension 7 Joe Jazzy. [address], [place], [place], [address], [place]. tel:[phone] Referring Provider: Jazzy Diaz [address], [place], [address]. tel: [phone] [address] [place], [address], [place] tel: [phone] Surgery At 1202 post OP (chief complaint) Postoperativ e visit Anamaria Peterson. [address] [place] [address], [address], . tel:[phone] Referring Provider: Kristen Conrad, [address] [place] [address], [address]. [phone] , [place], [place], [address], [place] tel:[phone] Surgery At 1202 post OP (chief complaint) Body mass index (BMI) 30.0-30.9, adultPostope rative visit Anamaria Peterson. [address] [place] [address], [address], [place]. tel:[phone] Referring Provider: Kristen Conrad, [address] [place] [address], [address]. tel:[phone] , [place], [place], [id number], [place] tel:[phone] Surgery At 1202 Sebaceous cyst (chief complaint) Epidermoid cyst Anamaria Peterson. [address] [place] [address], [address], [place]. tel:[phone] Referring Provider: Jazzy Diaz, [address], [place], [address]. tel:[phone] Office/Establ ished Level [address] , [place], [place], [id number], [place] tel:[phone] [facility] hypertension (chief complaint)hy perlipidemia (chief complaint)Hy pogonadism (chief complaint)GE RD (chief complaint)sm oking (chief complaint) Essential (primary) hypertension Hypogonadism in maleGastroes ophageal reflux disease without esophagitisS moking 7 Joe Purcell. [address], [place], [place], [id number], [place]. tel:[phone] Referring Provider: Jazzy Diaz [address], [place], [address]. tel:[phone] [place], [place], [id number], tel:[phone] Family Medicine [facility] Encntr for general adult medical exam w/o abnormal findings Dec- Joe Purcell. [address], [place], [place], [id number], [place]. tel:[phone] Referring Provider: Jazzy Diaz, [address], [place], [address]. tel:[phone] , [place], [place], [id number], [place] tel:[phone] Family [facility] Encntr for general adult medical exam w/o abnormal findings Dec- Joe Purcell. [address], [place], [place], [id number], [place]. tel:[phone] Referring Provider: Jazzy Diaz [address], [place], [address]. tel:[phone] [address] [place], [id number], [place] tel:[phone] [facility] Skin lesion (chief complaint) Epidermoid cyst Dec- Joe Purcell. [address], [place], [place], [id number], [place]. tel:[phone] Referring Provider: Jazzy Diaz [address], [place], [address]. tel:[phone] Office/Establ ished Level [address] [place] [id number], [place] tel:[phone] Family [facility] Skin lesion (chief complaint) Abscess Dec- 7 Joe Purcell. [address], [place], [place], [address], [place]. tel:[phone] Referring Provider: Jazzy Diaz [address], [place], [address]. tel:[phone] Office/Establ ished Level [address] , [place], [place], [id number], [place] tel:[phone] Family Medicine [facility] Sinus symptoms (acute) (FP) (chief complaint) Acute non-recurren t maxillary sinusitis 6 Joe Purcell. [address], [place], [place], [address], [place]. tel:[phone] Referring Provider: Jazzy Diaz, [address], [place], [address]. tel:[phone] , [place], [place], [address], [place] tel:[phone] Family Medicine [facility] Encntr for general adult medical exam w/o abnormal findings 6 Joe Purcell. [address], [place], [place], [address], [place]. tel:[phone] Referring Provider: Jazzy Diaz [address], [place], [address]. tel:[phone] , [place], [place], [id number], [place] tel:[phone] X Ray At 1202 No Information 6 Armando Aguilar. [address] [place] [address], [address], [place]. tel:[phone] Referring Provider: Lauren Roberts, [address] [place] [address], [address]. tel:[phone] Office/Establ ished Level [address] [place], [id number], [place] tel:[phone] Orthopedics At 1202 Knee Pain (chief complaint) Primary osteoarthrit is of right knee 6 Armando Aguilar. [address] [place] [address], [address], [place]. tel:[phone] Referring Provider: Jazzy Diaz [address], [place], [address]. tel:[phone] Preventative Established 40-[address]rs [address] [place], [id number], [place] tel:[phone] Family [facility] Preventive exam (chief complaint) Encntr for general adult medical exam w/o abnormal findingsEsse ntial (primary) hypertension Body mass index (BMI) 29.0-29.9, adultSmoking Pain in right kneeOther chronic painHypogona dism in male Jun- 6 Joe Purcell. [address], [place], [place], [address], [place]. tel:[phone] Referring Provider: Jazzy Diaz [address], [place], [address]. tel:[phone] [place], [address], [place] tel:[phone] [facility] Testicular hypofunction Jun- 6 Joe Purcell. [address], [place], [place], [address], [place]. tel:[phone] Referring Provider: Jazzy Diaz [address], [place], [address]. tel:[phone] [place], [id number], [place] tel:[phone] Family [facility] hypertension (chief complaint)hy perlipidemia (chief complaint)Hy pogonadism (chief complaint) Essential (primary) hypertension Hypogonadism in male Apr-0 8 6 Joe Purcell. [address], [place], [place], [address], [place]. tel:[phone] Referring Provider: Jazzy Diaz [address], [place], [address]. tel:[phone] [place], [address], [place] tel: [phone] Family Medicine [facility] Testicular hypofunction Encntr for general adult medical exam w/o abnormal findings 6 Joe Purcell. [address], [place], [place], [address], [place]. tel:[phone] Referring Provider: Jazzy Diaz, [address], [place], [address]. tel: [phone] [address] , [place], [place], [address], [place] tel: [phone] [facility] [place] external right ear cyst (chief complaint) Cyst on ear 5 Barrett Blanco. [address] [place] [address], [place], [place], [id number], [place]. tel:[phone] Referring Provider: Jazzy Diaz, [address] [facility], [place], [address]. tel: [phone] [address] , [place], [place], [address], [place] tel: [phone] Gastroenter ology At [facility] Follow Up of procedure (chief complaint) Benign neoplasm of ascending colon 5 Maddy Tee. [address] [place] [address] , [place], [place], [id number], [place]. tel:[phone] Referring Provider: Randal Castañeda, [address] [place] [address] , [place], [address]. tel: [phone] [address] , [place], [place], [address], [place] tel: [phone] Family Medicine At [facility] Ear discomfort (chief complaint) Swelling of right earBilateral impacted cerumen 5 Joe Purcell. [address] , [place], [place], [address], [place]. tel:[phone] Referring Provider: Jazzy Diaz, [address], [place], [address]. tel: [phone] [address] [place], [address], [place] tel:[phone] [facility] Preventive exam (chief complaint) No Information 5 Joe Purcell. [address] , [place], [place], [address], . tel:[phone] Referring Provider: Jazzy Diaz, [address] , [place], [address]. tel:[phone] , [place], [place], [address], tel:[phone] [facility] Preventive exam (IM) (chief complaint)Hy pogonadism (chief complaint) No Information Humphrey Webb. [address] [place], [place], [facility], . Referring Provider: Job Ann, [address] , [place], [address]. tel:[phone] Family History Family Member Type Diagnosis Age [...] virus 3 years or older, Fluarix Quad [id number] refused Source: Ne w Immunization Record Influenza, injectable, quadrivalent, preservative free, 3 yrs or older administered Source: Other Ermias try Payers Payer name Insurance type Covered libertarian ID Authortanga tirichard(s) BCBS - BCBS[place] [id number] BCBS Blue [facility] - BCBSNC [id number] Social History Type Description Quantity Date Captured [...] vaccine ( ). Due on due Goal Tdap. Due on [...] vaccine ( ). Due on due Goal CMP. Due on [...] Physical Exam. Due on due Goal Cologuard (OUTS ASHWIN ORDER). Due on due Goal Td vaccine. [...] Td vaccine. Due on 19 due Goal Cologuard (OUTSI DE ORDER). Due [...] completed Goal Sigmoidoscopy. Due on due Goal Influenza vaccin e. Due on due Goal Depression scree edgard. Due on due Goal Physical Exam. Due on due Goal Tdap. Due on due Goal Colonoscopy. Due on due Goal Td vaccine. Due on 18 due Goal FOBT. Due on due Goal Microalbumin, ra ndom Urine. Due on due Goal Cologuard (OUTSI DE [...] Td vaccine. Due on 17 due Goal Dietary manageme nt education, guidance, [...] Referral Referred To: Francis Morejon MD [address] [place], [place], [id number] Ordered: Referrals: Referrals: Referrals: Oncology. Francis Morejon MD. Consult ordered Referral Ordered: Referrals: Referrals: Pulmonology. Consult ordered Referral Ordered: Referrals: Referrals: Otolaryngology. Consult ordered Referral Referred To: Randal Raza MD [facility] [place], [phone] Ordered: Referrals: Cardiology. Randal Raza MD. Consult ordered Referral Ordered: eRn Canela M.D. (related to Osteoarthritis of right knee, unspecified osteoarthritis type) ordered Referral Referred To: Ren Canela M.D. Ordered: Referrals: Alternative Medicine. Ren Canela M.D.. Location: [facility]. Consult ordered Referral Ordered: Referrals: Orthopedic [...] Radiol ogy Order CT CHEST WO CONTRAST ([id number]), Collected on: , Sent on: Sent Future Order: Radiol ogy Order XR SCREENING OF EYE FOR DETECTION OF FOREIGN BODY ([id number]), Sent on: Sent Future Order: Lab Order IStommyt Janes adames ([id number]), Ordered on: Ordered Future Order: Radiol ogy Order Echo 2D Color Doppler (TTE W/ Doppler, Complete) ([id number]), Collected on: , Sent on: Sent History [...] and weight loss. Additional information: managed by [facility] oncology Dr. Vanegas HFU was admitted to [facility] with infected port and pneumonia HFU (comments) This visit was a virtual visit via [facility] to [employer] . The patient understood that they may [...] pain, productive cough, purulent sputum and tremors. tobacco use (comments) reduced n ow; cough [...] no unexplained weight lossrare dysphagia with water Hand arthritis The symptoms are reported as being moderate. 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 Follow Up of Hyperlipidemia Risk factors include [...] fatigue. Additional information: BP is Controlled. hoarseness hoarseness (comments) 2-month hi story of hoarseness. smoker but no significant heartburn or shortness of breath. No hemoptysis, recent intubation, thyroid disease or surgery, neck surgery or trauma, known neurologic disease, vocal abuse, or profession voice user. Voice rest helps a little. Symptoms are worse with more voice use. voice loss The symptoms beg an 10 days ago. The symptoms are reported as being mild. Associated symptoms include hoarseness. Pertinent negatives include fever, chills, sore throat, runny nose, cough. He states the symptoms are acute and are unchanged. smoker for 15 yearsnot painful tobacco use Coronary artery disease hyperlipidemia Coronary artery disease hypertension tobacco use (comments) chronic, stable hyperlipidemia (comments) [...] at this time. hyperlipidemia Risk factors inc geraldine age over 50. The patient is adhering [...] prilsoec 20 daily, still with gerd Dysphagia (comments) pt with cnr onic heartburn with dysphagia noted fo the past year occurs3-4 x per week, with solids.\ Dysphagia Preventive exam Men's preventive visit. Patient is [...] this year but patient cannot remember where hyperlipidemia Risk factors inc lude age over 50. The patient is adhering to follow-up for their hyperlipidemia. The patient is not adhering to diet for their hyperlipidemia. Pertinent negatives include chest pain, constipation, diarrhea, dyspnea, hematuria, palpitations and polyuria. hypertension It is currently getting worse. Risk factors include heavy ETOH consumption, male gender and smoking. The hypertension is exacerbated by nothing. Pertinent negatives include chest pain, dyspnea, headache, hematuria, irregular heartbeat/palpitations and visual disturbances. Additional information: patient's anniversary was yesteryday, he reports binge drinking Hypogonadism The symptoms hav e been mild and are improving. The patient is here today for a follow up visit. Pertinent history includes hyperlipidemia, hypertension and smoking. Additional information: well controlled with testosterone replacement. external right ear c yst (comments) 6 [...] I'm on injections for that. doctor in [facility] had me on q2 wks and doctor [...]
--- OUTSIDE RECORDS SUMMARY | 2024-10-12 16:09 | XMS_ITS | Continuity of Care Document ---
Author Organization [facility] Address [address] [place] [address] Phone Care Team Providers Care Grinding And Polishing Laborer Name Role Phone Unavailable Unavailable Unavailable Advance Directives Directive Yes / No Effective Date File Name No Information Encounters Encounter Description Practice Location Reason(s) For Visit Diagnoses Date Provider Providers Copied on Encounter [facility], [address], [place], [place], [id number], [place] tel:[phone] Imported From Previous EHR No Information No Information Family History Family Member Type Diagnosis Age At Onset No Information Payers Payer name Insurance type Covered constitution party ID Authoriza tion(s) No Information Social History [...]
--- OUTSIDE RECORDS SUMMARY | 2024-10-12 16:09 | XMS_ITS | Continuity of Care Document ---
Author Name [facility] Organization [facility] Care Team Providers Care Tool And Cutter Grinder Name Role Phone [facility] Unavailable Unavailable Immunizations Combined list of available immunizations from the Department of Defense and Veterans Affairs facilities. Immunization Series Date Given Administered By Site Reaction Lot Number CVX Code Drug [employer] Senior [employer] Status Comments Source INFLUENZA, SEASONAL, INJECTABLE 2017 [...] complet ed [facility] INFLUENZA, UNSPECIFIED FORMULATION 1996 Reynaldo BECK 88 complet ed [facility]
--- OUTSIDE RECORDS SUMMARY | 2024-10-12 16:09 | XMS_ITS ---
Author Organization [facility] Address [address] [place] [address] Care Team Providers Care Motor Coach Chauffeur Name Role Phone Quan RUCKER, [place] Primary Care Provider Candy Javed Unavailable [phone] Medications Medication SIG (Take, Route, Frequency, Duration) [...] Provider Diagnosis [facility] [address] [place] [address] 06/05/2024 Candy Sandhu Plan Of Treatment Next Appt Details Provider Name:Candy ruiz, 10/30/2024 04:00:00 PM, [address] [place], [address], Progress Notes * Harris CHACONOB:1965 (59 yo M)Acc No.[id number]:06/05/2024 Progress Note Patient:?Quintin CHACON Provider:?Candy Sandhu DPM :1965???Age:59 Y???Sex:Male Santy e:06/05/2024 Address:[address] [place], [place] [id number] Pcp:Ronnell Glass MD Subjective: * Chief Complaints: * ??? * HPI: ???At Risk footcare:?Pt States Last PCP Visit:?Date?01/18/2024 * Medical History:?type II mckenna betes, Heart disease, Chicken pox, Pacemaker. * Medications:?Taking Trulicit y 0.75 MG/0.5ML Solution Pen-injector Subcutaneous , Taking Vitamin D3 50 MCG (2000 UT) Capsule TAKE 1 CAPSULE BY MOUTH DAILY Oral , Notes to Pharmacist: [id number],Unavailable, Taking AMRAS Venture Ultra 2 w/Device Kit USE DIRECTED TO [...] Sandhu DPM Date:? Generated for Carine shaw/Negrito/Kassy on:?10/12/2024 04:08 PM EST History and Physical Notes * HPI (History of Present Illness) Category Sub-Category Detail Notes Category Not es At Risk footcare Pt States Last PCP Visit: Date: 4
--- OUTSIDE RECORDS SUMMARY | 2024-10-12 16:09 | XMS_ITS | Clinical Summary ---
Author Organization [facility] Facility Address [address] [address] Care Team Providers Care Middle School Music Teacher Name Role Phone Ronnell Glass MD Primary Care Provider [phone] Medications amLODIPine (NORVASC) 10 MG tablet Take 1 tablet by mouth 1 (one) time each day Active bumetanide (BUMEX) 1 MG tablet Take 2 tablets by mouth 2 (two) times a day Active ferrous sulfate 324 MG tablet delayed-release Take 1 tablet by mouth 2 (two) times a day Active hydrALAZINE (APRESOLINE) 50 MG tablet Take 2 tablets by mouth 3 (three) times a day Active isosorbide mononitrate (IMDUR) 60 MG 24 hr tablet Take 1 tablet by mouth 1 (one) time each day Active labetalol (NORMODYNE) 100 MG tablet Take 1 tablet by mouth 2 (two) times a day Active metFORMIN (GLUCOPHAGE) 500 MG tablet Take 1 tablet by mouth 2 (two) times a day Active polyethylene glycol (GLYCOLAX) 17 GM/SCOOP powder 1 packet by Other route 2 (two) times a day Active senna (SENOKOT) 8.6 MG tablet Take 2 tablets by mouth at bed time Active spironolactone (ALDACTONE) 25 MG tablet Take 2 tablets by mouth every morning Active tamsulosin (FLOMAX) 0.4 MG 24 hr capsule Take 1 capsule by mouth at bed time Active Active Problems Problem Noted Date Diagnosed Date Acute nontraumatic kidney injury 11/14/2020 Chronic kidney disease stage 3 11/14/2020 Diabetes mellitus 11/14/2020 Overview (11/14/2020): Last Assessment & Plan: -Will give long-acting, mealtime and sliding scale insulin. Continue with 15 units of Lantus at bedtime nightly, blood sugars overall much improved to the 100-120s range today. -Diabetic diet -Sammk-hh-tlbs checks with meals and at bedtime -Patient takes metformin 1000 mg twice daily which was held at admission First degree atrioventricular block 11/14/2020 Overview (11/14/2020): Last Assessment & Plan: EKG does show first-degree AV block with RI 310 ms. Bradycardic after clonidine. Echocardiogram was reviewed by Dr. Stone, also reviewed recent telemetry today which showed possible 2nd degree block. Patient remains asymptomatic. Plan for holter monitor on discharge. Hypertension 11/14/2020 Localized edema 11/14/2020 Overview (11/14/2020): Last Assessment & Plan: -Cardiology consult appreciated. Lower extremity venous reflux study recommended, likely to be done as outpatient? -After discussion with Dr. Stone, does not believe that this is a result of heart failure, likely needs venous reflux treatment as an outpatient. We will hold off on diuresis at this time -Monitor daily weights -Low-sodium diet Acute cystitis without hematuria 10/12/2019 Overview (11/14/2020): Last Assessment & Plan: With acute urinary retention likely in the setting of BPH Recommendation to keep Her in place until urology follow-up in 3 to 4 weeks for voiding trial. Empiric treatment for UTI, broadened to Zosyn once the patient displayed signs of symptoms of sepsis yesterday with persistent fever, still with elevated temps to 100.8. Urine culture shows greater than 100,000 colonies of group B strep, sensitivities are pending. Given that GBS is sensitive universally to penicillin. I will make that switch today, curbside ID for dosing and then review with them tomorrow for official consult if patient still febrile overnight. Hope is that if he is afebrile he may go home tomorrow. Benign prostatic hyperplasia with outflow obstru ction 10/12/2019 Overview (11/14/2020): Last Assessment & Plan: Now connected with urology with obstructing prostate. Patient likely to need TURP in the future. Discharge with catheter with follow-up in 3 to 4 weeks at the urology office. Tamsulosin initiated. Acute nontraumatic kidney injury 10/11/2019 Overview (11/14/2020): Last Assessment & Plan: Creatinine improved further to 2.1, continue to monitor. US with no evidence for medicorenal disease. No evidence for obstruction further up system. Hypertensive urgency 10/11/2019 Overview (11/14/2020): Last Assessment & Plan: Cardiology recommendations as follows: Continue with Hydralazine 25 every 6 hours, with plan to transition to 50 mg every 12 hours if the patient tolerates well. Increase amlodipine to 10mg daily as pressures remain elevated, monitor for improvement. Family History Medical History Relation Comments Heart disease Mother Stroke Mother Relation Status Comments Mother Social History Tobacco Use Types Packs/Day Years Used Date Smoking Tobacco: Never Assessed Sex and Gender Information Value Date Recorded Sex Assigned at Not on file Legal Sex Male 4:57 PM EST Gender Identity Not on file Sexual Orientation Not on file Plan of Treatment Health Maintenance Due Date Last Done Comments Pneumococcal Vaccine: Pediat rics (0 to 5 Years) and At-Risk Patients (6 to 64 Years) (1 of 2 - PCV) 1971 Hepatitis B Vaccine (1 of 3 - 19+ 3-dose series) 01/03 Colorectal Cancer Screening: Annual FOBT 2014 Colorectal Cancer Screening: Colonoscopy 2014 Colorectal Cancer Screening: Sigmoidoscopy 2014 Diabetes: Ophthalmology Exam 10/17/2020 Diabetes: Pedal Pulse Checked 10/17/2020 Diabetes: Sensory Foot Exam 10/17/2020 Diabetes: Visual Foot Exam 10/17/2020 Diabetes: Hemoglobin A1C 11/27/2020 08/29/2020 Influenza Vaccine (#1) 2024 Procedures Procedure Name Priority Date/Time Associated Diagnosis Comments BLOOD PANEL (HC) Routine 08/29/2020 12:0 0 AM EST from Last 3 Months or Most Recently Relevant to Health Maintenance Results * (ABNORMAL) Blood Panel (08/29/2020 12:00 AM EST) Sodium 137 137 - 145 mmol/L [facility] BUN 36(H) 9 - 20 mg/dl [facility] Potassium 3.9 3.5 - 5.1 mmol/L [facility] Creatinine 1.80(H) 0.70 - 1.30 mg/dl [facility] Calcium 8.5 8.4 - 10.2 mg/dl [facility] Hemoglobin A1C 7.7(H) <5 % [facility] 08/29/2020 us [facility] [id number] LICITED RESULTS Final Result [facility] from Last 3 Months or Most Recently Relevant to Health Maintenance Insurance [facility] Care Teams Middle School Music Teacher Relationship Specialty Start Date End Date Ronenll Glass MD [address] [place] [address] PCP - General 09/29/20
--- OUTSIDE RECORDS SUMMARY | 2024-10-12 16:09 | XMS_ITS | Patient Health Record ---
Author Organization [facility] Address [address] [facility] [place] [address] Care Team Providers Care Staffing Account Manager Name Role Phone Quan RUCKER [place] Primary Care Provider Candy Javed Unavailable [phone] Allergies No Known Allergies Results Component Value Reference Range Notes HEMOGLOBIN A1C (GLYCOHEMOGLO BIN) Reviewed date:08/07/2024 03:45:31 PM Interpretation: Performing Lab: Notes/Report: TOTAL HEMOGLOBIN (HGBA1C) 6.7 Reason For Referral No Information Medications Medication [...] Problem Acquired hammer toe of right foot (6341580975390977 ) Other hammer toe(s) (acquired), right foot (M20.41) Active confirmed Problem Acquired hammer toe of left foot (7141603305417446 ) Other hammer toe(s) (acquired), left foot (M20.42) Active confirmed Problem 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 I (430317269) Type 1 diabetes mellitus with diabetic polyneuropathy (E10.42) Active confirmed Problem Polyneuropathy due to type 2 diabetes mellitus (451642626) Type 2 diabetes mellitus with diabetic polyneuropathy (E11.42) Active confirmed Problem 710794015 Hammertoe of lef t foot (M20.42) Active confirmed Problem 002586304 Hammertoe of right foot (M20.41) Active confirmed Problem 346605912949 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) Active confirmed Problem 337656920 Charcot's joint of foot, right (M14.671) Active confirmed Vital Signs Blood pressure diastolic 90 mm Hg 08/07/2024 Height 5ft9in in 08/07/2024 Blood pressure systolic 130 mm Hg 08/07/2024 Weight 250 lbs 08/07/2024 BMI 36.91 kg/m2 08/07/2024 Encounters Encounter Location Date Provider Diagnosis [place] [address] [address] 01/17/2024 Candy Sandhu Type 2 diabetes mellitus with diabetic polyneuropathy E11.42 ; Charcot's joint of foot, right M14.671 ; Tinea unguium B35.1 ; Type 2 diabetes mellitus with Charcot's joint of right foot E11.610 ; Hammertoe of right foot M20.41 and Hammertoe of left foot M20.[address] [address] 03/27/2024 Candy Sandhu Type 2 diabetes mellitus with diabetic polyneuropathy E11.42 ; Charcot's joint of foot, right M14.671 ; Tinea unguium B35.1 ; Type 2 diabetes mellitus with Charcot's joint of right foot E11.610 ; Hammertoe of right foot M20.41 and Hammertoe of left foot M20.[address] [address] 08/07/2024 Candy Sandhu Type 2 diabetes mellitus with diabetic polyneuropathy E11.42 ; Charcot's joint of foot, right M14.671 ; Tinea unguium B35.1 ; Type 2 diabetes mellitus with Charcot's joint of right foot E11.610 ; Other hammer toe(s) (acquired), right foot M20.41 and Other hammer toe(s) (acquired), left foot M20.[address] [address] 01/11/[address] Sandhu [address] [address] 01/18/[address] Sand[address] [address] 06/06/2024 Candy Sandhu Assessments Encounter Date Diagnosis [...] Details Provider Name:Candy ruiz, 10/30/2024 04:00:00 PM, [address] [place] [address], [address], Insurance Providers Payer Name Payer Address Payer Phone Subscriber Number Group Number Insured Name Patient Relationship to Insured Coverage Start Date Coverage End Date [facility] [address] [place] [address] [id number] Quintin Chacon Self - patient is the insured Medical (General) History Medical History History ICD Code type II diabetes Heart disease Chicken pox Pacemaker Surgical History Surgery Date(Month/Year) cardiac pacemeker 04/15/2020 amputation, right toe 12/23/2020
== END ==
LOC: HO.CARD 14:42
PROVIDERS: PCP Internal Medicine; Visit Provider Internal Medicine
DX: I42.9 Cardiomyopathy, unspecified (principal)
CPT/HCPCS: 93306

== ENCOUNTER 2024-10-16 11:06 | Outpatient (REF) | payer BC, SELFPAY ==
[2024-10-16 11:24] LABS: MANUAL DIFF FLAG NO
[2024-10-16 11:36] LABS: Appearance Urine Clear; Color Urine Yellow; Glucose Urine UA Negative (Negative); Leukocyte Esterase Urine Negative (Negative); Nitrite Urine Negative (Negative); PH 7.5 (5.0-9.0); Specific Gravity - Urine 1.015 (1.005-1.025); UMIC TRIGGER UACC YES; Urine Blood Negative (Negative); Urine Ketones Negative (Negative); Urine Protein 30 (1+) mg/dL (Neg-Trace)
[2024-10-16 11:38] LABS: Bacteria Urine None Seen (None Seen); Hyaline Casts Urine 0-2 /LPF (0-2); RBC Urine 0-2 /HPF (0-2); Squamous Epithelial Cell Urine 0-2 /HPF (0-2); WBC Urine 0-5 /HPF (0-5)
[2024-10-16 11:47] LABS: Basophils Absolute Auto 0.1 X10*3/uL (0.0-0.2); Basophils Percent Auto 1.1 % (0-2); Eosinophils Percent Auto 0.7 % (0-4); Hematocrit 39.3 % (42.0-52.0); Hemoglobin 12.8 g/dl (14.0-18.0); Imm Gran Abs Auto 0.01 X10*3/uL (0.00-0.03); Imm Gran Pct Auto 0.2 % (0.0-0.4); Lymphocytes Absolute Auto 1.5 X10*3/uL (1.2-4.9); Lymphocytes Percent Auto 26.8 % (20-40); Mean Corpuscular HGB Conc 32.6 g/dl (31.0-36.0); Mean Corpuscular Hemoglobin 26.4 pg (27.0-33.0); Mean Corpuscular Volume 81.2 fL (80.0-98.0); Monocytes Absolute Auto 0.6 X10*3/uL (0.1-1.2); Monocytes Percent Auto 10.3 % (2-11); Neutrophils Absolute Auto 3.3 x10*3/uL (2.0-8.3); Neutrophils Percent Auto 60.9 % (45-73); Platelet Count 271 X10*3/uL (160-400); Red Blood Count 4.84 X10*6/uL (4.60-5.80); Red Cell Distribution Width 13.8 % (11.0-16.0); White Blood Count 5.4 X10*3/uL (4.8-10.8)
[2024-10-16 11:56] LABS: Estimated Average Glucose 137 mg/dL; Hemoglobin A1C 155.1921 umol/L; Hemoglobin A1c % 6.4 % (<6.0); Total Hemoglobin (HGBA1C) 3361.5439 umol/L
[2024-10-16 12:17] LABS: Creatinine Urine 124.95 mg/dL
--- OUTSIDE RECORDS SUMMARY | 2024-10-16 12:21 | XMS_ITS ---
Author Organization [facility] Address [address] [place] [address] Care Team Providers Care Financial Sales Advisor Name Role Phone Quan RUCKER, [place] Primary Care Provider Unava ilable Candy Sandhu Unavailable [phone] REASON FOR VISIT NS 06/05/24 Encounters Encounter Location Date Provider Diagnosis [facility] [address] [place] [address] 06/06/2024 Candy Sandhu Plan Of Treatment Next Appt Details Provider Name:Candy ruiz, 10/30/2024 04:00:00 PM, [address] [place], [address], Progress Notes * Harris CHACONOB:1965 (59 yo M)Acc No.[id number]:06/06/2024 Patient:?Quintin Chacon :1965???Age:59 Y???Sex:Male Address:[address] [place] [address], [address] * true * Date:? Generated for Printi ng/Fagracielag/eTransmitting on:?10/16/2024 12:21 PM EST
--- OUTSIDE RECORDS SUMMARY | 2024-10-16 12:22 | XMS_ITS | Continuity of Care Document ---
Author Name [facility] Organization [facility] Care Team Providers Care Biologics Specialist Name Role Phone [facility] Unavailable Unavailable Immunizations Combined list of available immunizations from the Department of Defense and Veterans Affairs facilities. Immunization Series Date Given Administered By Site Reaction Lot Number CVX Code Drug Looping Machine Operator Status Comments Source INFLUENZA, SEASONAL, INJECTABLE 2017 [...] complet ed [facility] INFLUENZA, UNSPECIFIED FORMULATION 1996 Reynaldo BECK 88 complet ed [facility]
--- OUTSIDE RECORDS SUMMARY | 2024-10-16 12:22 | XMS_ITS | Patient Health Record ---
Author Organization [facility] Address [address] [facility] [place] [address] Care Team Providers Care Machine Stone Polisher Apprentice Name Role Phone Quan RUCKER [place] Primary Care Provider Candy Javed Unavailable [phone] Allergies No Known Allergies Results Component Value [...] Problem Acquired hammer toe of right foot (7316070247699492 ) Other hammer toe(s) (acquired), right foot (M20.41) Active confirmed Problem Acquired hammer toe of left foot (2114444249692695 ) Other hammer toe(s) (acquired), left foot (M20.42) Active confirmed Problem 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 I (853128322) Type 1 diabetes mellitus with diabetic polyneuropathy (E10.42) Active confirmed Problem Polyneuropathy due to type 2 diabetes mellitus (119072132) Type 2 diabetes mellitus with diabetic polyneuropathy (E11.42) Active confirmed Problem 201936501 Hammertoe of lef t foot (M20.42) Active confirmed Problem 888498353 Hammertoe of right foot (M20.41) Active confirmed Problem 028051724580 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) Active confirmed Problem 760211684 Charcot's joint of foot, right (M14.671) Active confirmed Vital Signs Blood pressure diastolic 90 mm Hg 08/07/2024 Height 5ft9in in 08/07/2024 Blood pressure systolic 130 mm Hg 08/07/2024 Weight 250 lbs 08/07/2024 BMI 36.91 kg/m2 08/07/2024 Encounters Encounter Location Date Provider Diagnosis [place] [address] [address] 01/17/2024 Candy Sandhu Type 2 diabetes mellitus with diabetic polyneuropathy E11.42 ; Charcot's joint of foot, right M14.671 ; Tinea unguium B35.1 ; Type 2 diabetes mellitus with Charcot's joint of right foot E11.610 ; Hammertoe of right foot M20.41 and Hammertoe of left foot M20.[address] [address] 03/27/2024 Candy Sandhu Type 2 diabetes mellitus with diabetic polyneuropathy E11.42 ; Charcot's joint of foot, right M14.671 ; Tinea unguium B35.1 ; Type 2 diabetes mellitus with Charcot's joint of right foot E11.610 ; Hammertoe of right foot M20.41 and Hammertoe of left foot M20.[address] [address] 08/07/2024 Candy Sandhu Type 2 diabetes mellitus with diabetic polyneuropathy E11.42 ; Charcot's joint of foot, right M14.671 ; Tinea unguium B35.1 ; Type 2 diabetes mellitus with Charcot's joint of right foot E11.610 ; Other hammer toe(s) (acquired), right foot M20.41 and Other hammer toe(s) (acquired), left foot M20.[address] [address] 01/11/2024 Candy Sandhu [address] [address] 01/18/2024 Candy Sandhu [address] [address] 06/06/2024 Candy Sandhu Assessments Encounter Date Diagnosis [...] Details Provider Name:Candy ruiz, 10/30/2024 04:00:00 PM, [address] [place] [address], [address], Insurance Providers Payer Name Payer Address Payer Phone Subscriber Number Group Number Insured Name Patient Relationship to Insured Coverage Start Date Coverage End Date [facility] [address] [place] [address] [id number] Quintin Chacon Self - patient is the insured Medical (General) History Medical History History ICD Code type II diabetes Heart disease Chicken pox Pacemaker Surgical History Surgery Date(Month/Year) cardiac pacemeker 04/15/2020 amputation, right toe 12/23/2020
--- OUTSIDE RECORDS SUMMARY | 2024-10-16 12:22 | XMS_ITS | Clinical Summary ---
Author Organization [facility] Address [address] [address] Care Team Providers Care Rn Angiography Name Role Phone Ronnell Glass MD Primary Care Provider [phone] Medications amLODIPine (NORVASC) 10 MG tablet Take [...] to the 100-120s range today. -Diabetic diet -Hnlkv-[id number]-cvvh checks with meals and at bedtime -Patient [...] % PVNMA 08/29/2020 us [facility] Conversion LAB [id number] LICITED RESULTS Final Result PVNMA from Last 3 Months or Most Recently Relevant to Health Maintenance Insurance [facility] Care Teams Rn Angiography Relationship Specialty Start Date End Date Ronnell Glass MD [address] [place] [address] PCP - General 09/29/20
--- OUTSIDE RECORDS SUMMARY | 2024-10-16 12:22 | XMS_ITS | Continuity of Care Document ---
Author Organization [facility] Address [address] [place] [address] Phone Care Team Providers Care Welfare Aide Name Role Phone Unavailable Unavailable Unavailable Advance Directives Directive Yes / No Effective Date File Name No Information Encounters Encounter Description Practice Location Reason(s) For Visit Diagnoses Date Provider Providers Copied on Encounter [facility], [address], [place], [place], [id number], [place] tel:[phone] Imported From Previous EHR No Information No Information Family History Family Member Type Diagnosis Age At Onset No Information Payers Payer name Insurance type Covered alliance party ID Authoriza tion(s) No Information Social [...]
--- OUTSIDE RECORDS SUMMARY | 2024-10-16 12:22 | XMS_ITS ---
Author Organization [facility] Address [address] [place] [address] Care Team Providers Care Mine Wirer Name Role Phone Quan RUCKER, [place] Primary Care Provider Candy Javed Unavailable [phone] Medications Medication SIG (Take, Route, Frequency, Duration) [...] Provider Diagnosis [facility] [address] [place] [address] 06/05/2024 Candy Sandhu Plan Of Treatment Next Appt Details Provider Name:Candy ruiz, 10/30/2024 04:00:00 PM, [address] [place], [address], Progress Notes * Harris CHACONOB:1965 (59 yo M)Acc No.[id number]:06/05/2024 Progress Note Patient:?Quintin CHACON Provider:?Candy Sandhu DPM :1965???Age:59 Y???Sex:Male Santy e:06/05/2024 Address:[address] [place], [place] [id number] Pcp:Ronnell Glass MD Subjective: * Chief Complaints: * ??? * HPI: ???At Risk footcare:?Pt States Last PCP Visit:?Date?01/18/2024 * Medical History:?type II mckenna betes, Heart disease, Chicken pox, Pacemaker. * Medications:?Taking Trulicit y 0.75 MG/0.5ML Solution Pen-injector Subcutaneous , Taking Vitamin D3 50 MCG (2000 UT) Capsule TAKE 1 CAPSULE BY MOUTH DAILY Oral , Notes to Pharmacist: E559,Unavailable, Taking Wote Ultra 2 w/Device Kit USE DIRECTED TO [...] Sandhu DPM Date:? Generated for Carine shaw/Negrito/Kassy on:?10/16/2024 12:21 PM EST History and Physical Notes * HPI (History of Present Illness) Category Sub-Category Detail Notes Category Not es At Risk footcare Pt States Last PCP Visit: Date: 4
--- OUTSIDE RECORDS SUMMARY | 2024-10-16 12:22 | XMS_ITS | Continuity of Care Document ---
Author Organization [facility] Address [address] [place] [address] Phone Care Team Providers Care Reduction Furnace Operator Helper Name Role Phone [facility] Unavailable Unavailable Allergies, Adverse Reactions, Alerts [...] Active Procedures Procedure Date CONTACT LENS FITTING [facility] Tech 0 EYE EXAM & TREATMENT REFRACTION EYE EXAM & TREATMENT REFRACTION CTL Tech CONTACT LENS FITTING [facility] Tech 9 OFFICE/OUTPATIENT VISIT, EST OFFICE/OUTPATIENT VISIT, EST REFRACTION CTL Tech CONTACT LENS FITTING CTL Tech 8 EYE EXAM & TREATMENT EYE EXAM & TREATMENT CONTACT LENS FITTING CTL Tech 7 REFRACTION CTL Tech EYE EXAM & TREATMENT CONTACT LENS FITTING CTL Tech 6 REFRACTION [facility] Tech EYE EXAM ESTABLISHED [facility] OFFICE/OUTPATIENT VISIT, NEW Advance Directives Directive Yes / No Effective Date File Name No Information Encounters Encounter Description Practice Location Reason(s) For Visit Diagnoses Date Provider Providers Copied on Encounter [facility] [place], [place], [id number], tel:[phone] [facility] No Information [facility] . [address] [place] [address], [id number]. tel:[phone] Referring Provider: Radha Stewart [facility] [address], [place], [address]. tel:[phone] [facility] [address] [place] [address], [id number], [place] tel:[phone] [facility] Contact lens evaluation (chief complaint) No Information 0 Mariel Garcia [facility] [address], [place], [address], [place]. tel:[phone] Referring Provider: Radha Stewart [address], [place], [address]. tel:[phone] [facility] [place], [place], [id number], [place] tel:[phone] [facility] routine exam (chief complaint) PresbyopiaNu clear Sclerosis OUCentral corneal ulcer, right eye 0 Mariel tabares [address] [facility] [address], [place], [address], [place]. tel:[phone] Referring Provider: Radha Stewart [address], [place], [address]. tel:[phone] [facility] [place], [place], [id number], [place] tel:[phone] [facility] comprehensiv e exam (chief complaint) PresbyopiaNu clear Sclerosis OUCentral corneal ulcer, right eye [address] [place] [address] , [place], [address], [place]. tel:[phone] Referring Provider: Pranay Floyd [facility] , [place], [address]. tel:[phone] OFFICE/OUTPA TIENT VISIT, EST [facility] [address] [place] [address], [id number], [place] tel:[phone] [place] 3 day recheck Corneal Ulcer (chief complaint) Central corneal ulcer, right eye 8 Faustino Del Angel. [address] [place] [address], [id number], [place]. tel:[phone] Referring Provider: Pranay Floyd [facility] , [place], [address]. tel:[phone] OFFICE/OUTPA TIENT VISIT, EST [facility] [address] [place] [address], [id number], [place] tel:[phone] [facility] FBS (chief complaint) Central corneal ulcer, right eye 8 Faustino Del Angel. [address] [place] [address], [id number], [place]. tel:[phone] Referring Provider: Pranay Floyd [facility] , [place], [address]. tel:[phone] [facility] [address] [place] [address], [id number], [place] tel:[phone] [facility] No Information 8 Mariel tabares [facility] , [place], [address], [place]. tel:[phone] Referring Provider: Radha Stewart [facility] [address], [place], [address]. tel:[phone] [facility] [address] [place] [address], [id number], [place] tel:[phone] [facility] comprehensiv e exam (chief complaint) Nuclear Sclerosis OUPresbyopia 8 Mariel tabares [facility] [address], [place], [address], [place]. tel:[phone] Referring Provider: Radha Stewart [address], [place], [address]. tel:[phone] [facility] [address] [place] [address], [id number], [place] tel:[phone] [facility] comprehensiv e exam (chief complaint) Age-related nuclear cataract, bilateralPre sbyopia 7 Mariel tabares [facility] [address], [place], [address], [place]. tel:[phone] Referring Provider: Radha Stewart [address], [place], [address]. tel:[phone] [facility] [address] [place] [address], [id number], [place] tel:[phone] [facility] comprehensiv e exam (chief complaint) Age-related nuclear cataract, bilateralPre sbyopia 0 6 Mariel Garcia [facility] [address], [place], [address], [place]. tel:[phone] Referring Provider: Radha Stewart [address], [place], [address]. tel:[phone] [facility] [address] [place] [address], [id number], tel:[phone] [facility] metal FB (chief complaint) Foreign body in post wall of eye 5 Bubba Vela. [address] [facility] , [place], [place], [id number], . tel:[phone] Referring Provider: Pranay Floyd [address] [place] [address] , [place], [address]. tel:[phone] OFFICE/OUTPA TIENT VISIT, [facility] [address] [facility], [place], [place], [id number], tel:[phone] [facility] metal in eye (chief complaint) Foreign body in post wall of eye [address] [place] [address] , [place], [address], [place]. tel:[phone] Referring Provider: Pranay Floyd [address] [place] [address] , [place], [address]. tel:[phone] Family History Family Member Type Diagnosis Age At Onset Mother Problem (finding) Heart disease Payers Payer name Insurance type Covered democrat ID Authortanga reji(s) [facility] [id number] Social History Type Description Quantity Date Captured [...] Instruction Additional Infor mitch Impression/Plan Related to Centr al corneal ulcer, [...] nuclear cataract, bilateral RTC 1yr for [facility] w/ Dr. Floyd Related to Presbyopia RTC 1yr for [facility]LE[facility] w/ Dr. Floyd Related to Age-related nuclear cataract, bilateral Follow up - RTC 1yr for COLEMAN w/ Dr. Floyd Related to Presbyopia Impression/Plan - No n-surgical at this time. Natural progression of cataracts discussed with patient. Patient indicates understanding that new specs may not improve VA as cataracts mature. Will continue to monitor. Related to Age-related nuclear cataract, bilateral Follow up - RTC 1yr for [facility]LE[facility] w/ Dr. Floyd Related to Age-related nuclear cataract, bilateral Impression/Plan - Ne w glasses rx given to patient today to help with blurred DVA and trouble reading. Call if VA changes. Related to Presbyopia PRN, bring images Related to For eign [...]
--- OUTSIDE RECORDS SUMMARY | 2024-10-16 12:22 | XMS_ITS ---
Author Organization [facility] [place] Address [address] [place] [address] Care Team Providers Care Boat Deckhand Name Role Phone Quan RUCKER, Ronnell Primary Care Provider Unava ilCandy Rsoario Unavailable [phone] Allergies No Known Allergies REASON FOR VISIT [...] Problem Acquired hammer toe of right foot (1278105308423 105) Other hammer toe(s) (acquired), right foot (M20.41) Active confirmed Problem Acquired hammer toe of left foot (0485399044317 103) Other hammer toe(s) (acquired), left foot (M20.42) Active confirmed Vital Signs Height 5ft9in in 08/07/2024 Weight 250 lbs 08/07/2024 BMI 36.91 kg/m2 08/07/2024 Blood pressure systolic 130 mm Hg 08/07/20 24 Blood pressure diastolic 90 mm Hg 024 Encounters Encounter Location Date Provider Diagnosis [facility] [place] [address] [place] [address] 08/07/2024 Candy Sandhu Type 2 diabetes mellitus [...] Reason: Provider Name:Candy ruiz, 10/30/2024 04:00:00 PM, [address] [place] [address], [address], Procedure Notes * Category Sub-Category Detail Notes [...] use of a nail nipper and/or dremel-type turbinated bone grinder, to a more viable healthy nail plate or bed tissue 6-10. Silver nitrate used for any petechial bleeding as necessary. Definitive antifungal treatment options have been reviewed and discussed with the patient. The patient chooses, no pharmaceutical tx - 03662 Keratoma Treatment Parring or Cutting o f Benign Hyperkeratotic Lesion(s) 53022 ( More than 4 Lesions ) - The Benign hyperkeratotic lesions, as described above were pared, and/or cut utilizing a sterile 15 blade, tissue nippers, and/or dremel Progress Notes * Marisela CHACON:1965 (59 yo M)Acc No.[id number]:08/07/2024 Progress Note Patient:?Quintin CHACON Provider:?Candy Sandhu DPM :1965???Age:59 Y???Sex:Male Santy e:08/07/2024 Address:[address] [place] [address] Pcp:Ronnell Glass MD Subjective: * Chief Complaints: [...] MOUTH DAILY Oral , Notes to Pharmacist: E559,[facility] Ultra 2 w/Device Kit USE DIRECTED TO [...] use of a nail nipper and/or dremel-type turbinated bone grinder, to a more viable healthy nail plate or bed tissue 6-10. Silver nitrate used for any petechial bleeding as necessary. Definitive antifungal treatment options have been reviewed and discussed with the patient. The patient chooses, no pharmaceutical tx - 90296.?Keratoma Treatment:?Parring or Cutting of Benign Hyperkeratotic Lesion(s)?89164 ( More than 4 Lesions ) - The Benign hyperkeratotic lesions, as described above were pared, and/or cut utilizing a sterile 15 blade, tissue nippers, and/or dremel.? * Procedure Codes:?35333 DEBRI DE NAIL, 6 OR MORE, Modifiers: XS 62123 TRIM SKIN LESIONS, OVER 4, Modifiers: XS [...] states he will try going to the [place].?Shoe Gear Counseling:?SHOE Rx - The patient was [...]
--- OUTSIDE RECORDS SUMMARY | 2024-10-16 12:22 | XMS_ITS | Continuity of Care Document ---
Author Organization [facility] Address [address] [place] [address] [place] [address] Phone Care Team Providers Care Manager Support Services Name Role Phone Jazzy Diaz MD Unavailable [...] X-ray Knee Complete Standing (4 Views)(A P,Tunnel,Lateral, [place]) DepoMedrol 80mg Inj/Asp. Large jt. bursa (shoulder, [...] Diagnoses Date Provider Providers Copied on Encounter [address] , [place], [place], [id number], [place] tel:[phone] No Information 3 Joe Purcell. [address] [facility], [place], [place], [address], [place]. tel:[phone] Office/Establ ished Level [address] , [place], [place], [address], [place] tel:[phone] Pulmonary Lung cancer (chief complaint)Sh ortness of breath (chief complaint) Non-small cell cancer of left lungShortnes s of breathTobacc o abuseBody mass index (BMI) 29.0-29.9, adult Dec-2 1 Juanjose Jara. [address] [place] [address], [address], [place]. tel:[phone] Primary Practice Provider: Job Ann, [address] [facility], [place], [address]. tel:[phone] [facility] Provider: Estefani Moulton, [address] [place] [address], [address]. tel:[phone] , [place], [place], [address], [place] tel:[phone] Family Medicine At [facility] No Information 1 Seth Kaiser. [address] [facility], [place], [place], [id number], [place]. tel:[phone] Office/Establ ished Level [address] , [place], [place], [address], [place] tel:[phone] Pulmonary HFU (chief complaint)CO PD (follow up) (chief complaint)Veronica ng Cancer (chief complaint) Non-small cell cancer of left lungAbnormal findings on diagnostic imaging of lungTobacco abuseBody mass index (BMI) 28.0-28.9, adult Feb- 1 Juanjose Jara. [address] [place] [address], [address], [place]. tel:[phone] Primary Practice Provider: Job Ann, [address], [place], [address]. tel:[phone] ring Provider: Estefani Moulton, [address] [place] [address], [place], [address]. tel:[phone] , [place], [place], [id number], [place] tel:[phone] Scan At [facility] No Information 1 Juanjose Jara. [address] [place] [address], [address], [place]. tel:[phone] Referring Provider: Estefani Moulton, [address] [place] [address], [address]. tel:[phone] , [place], [place], [address], [place] tel:[phone] Internal Medicine [facility] No Information 1 Maddy Tee. [address] [place] [address] , [place], [place], [address], [place]. tel:[phone] , [place], [place], [address], [place] tel:[phone] Pulmonary Shortness of breath 1 Juanjose Jara. [address] [place] [address], [address], [place]. tel:[phone] SUBSEQUENT HOSPITAL CARE [address] [place], [address], [place] tel: [phone] [facility] IP No Information 0 Jeff Dennison. [address] [place] [address], [address], [place]. tel:[phone] Referring Provider: Juma Aguilar, [address] [place] [address], [address]. tel: [phone] Initial Hospital Care [address] , [place], [place], [address], [place] tel: [phone] [facility] IP No Information 0 Jori Bond. [address] [place] [address], [address], [place]. tel:[phone] Referring Provider: Varun Hsieh, [address] [place] [address], [address]. tel: [phone] [facility] [address] , [place], [place], [address], [place] tel: [phone] [facility] IP No Information 0 Antonio Mota. [address] [place] [address], [address], [place]. tel:[phone] Referring Provider: Nakul Alvarez, [address] [place] [address], [address]. tel: [phone] INPATIENT CONSULTATION [address] , [place], [place], [address], [place] tel: [phone] [facility] IP No Information 0 Jeff Dennison. [address] [place] [address], [address], [place]. tel:[phone] Referring Provider: Juma Aguilar, [address] [place] [address], [address]. tel: [phone] [address] , [place], [place], [address], [place] tel: [phone] [facility] IP No Information 0 Valarie Garrison. [address] [place] [address], [address], [place]. tel:[phone] Referring Provider: Bladimir Sheppard [address] [place] [address], [address]. tel:[phone] [facility] [address] [place], [address], tel: [phone] [facility] IP No Information Dec-2 0 Antonio Mota. [address] [place] [address], [address], [place]. tel:[phone] Referring Provider: Nakul Alvarez, [address] [place] [address], [address]. tel: [phone] Office/Establ ished Level [address] [place], [address], [place] tel: [phone] Cardiology At [facility] Coronary artery disease (chief complaint)hy pertension (chief complaint)hy perlipidemia (chief complaint)to bacco use (chief complaint) Mixed hyperlipidem iaEssential (primary) hypertension Atherosclero tic heart disease of [place] coronary artery without angina pectorisToba senior staff accountant abuseBody mass index (BMI) 28.0-28.9, adult Dec-0 0 Misbah Jordan. [address] [place] [address] [place], [id number], [place]. tel:[phone] Referring Provider: Job Ann, [address] , [place], [address]. tel:[phone] Office/Establ ished Level [address] [place], [address], [place] tel:[phone] Pulmonary lung cancer (chief complaint) Non-small cell cancer of left lungShortnes s of breathBody mass index (BMI) 28.0-28.9, adult Dec-0 0 Juanjose Jara. [address] [place] [address], [address], [place]. tel:[phone] Primary Practice Provider: Job Ann, [address] , [place], [address]. tel:[phone] ring Provider: Estefani Moulton, [address] [place] [address], [address]. tel:[phone] , [place], [place], [address], [place] tel:[phone] MRI At 1202 Non-small cell cancer of left lung Sep-0 0 Juanjose Jara. [address] [place] [address], [address], [place]. tel:[phone] , [place], [place], [address], [place] tel:[phone] X Ray At 1202 No Information Sep-0 0 Juanjose Jara. [address] [place] [address], [address], [place]. tel:[phone] Referring Provider: Estefani Moulton, [address] [place] [address], [address]. tel:[phone] , [place], [place], [id number], [place] tel:[phone] Pulmonary No Information Sep-0 0 Juanjose Jara. [address] [place] [address], [facility], [place]. tel:[phone] Referring Provider: Job Ann, [address], [place], [address]. tel:[phone] Office/Establ ished Level [address] , [place], [place], [address], [place] tel:[phone] Clinic Virtual fu after pet (chief complaint) Non-small cell cancer of left lungBody mass index (BMI) 28.0-28.9, adult Aug-2 0 Juanjose Jara. [address] [place] [address], [address], [place]. tel:[phone] Primary Practice Provider: Job Ann [address], [place], [address]. tel:[phone] ring Provider: Job Ann, [address], [place], [address]. tel:[phone] [address] , [place], [place], [address], [place] tel: [phone] [facility] OP No Information 0 Elieser Villegas. [address] [place] [address] , [place], [place], [address], [place]. tel:[phone] Referring Provider: Bakari Mon, [address] [place] [address] , [place], [address]. tel: [phone] [address] , [place], [place], [address], [place] tel: [phone] Pulmonary Hilar mass 0 Juanjose Jara. [address] [place] [address], [facility], . tel:[phone] Office Consult Level [address] , [place], [place], [id number], [place] tel: [phone] Pulmonary hilar mass (chief complaint)Vo heidi Cord dysfunction (chief complaint) Hilar massSolitary pulmonary noduleParaly sis of vocal cords and larynx, unilateralBo dy mass index (BMI) 30.0-30.9, adult Apr-0 0 Juanjose Jara. [address] [place] [address], [facility], [place]. tel:[phone] Primary Practice Provider: Job Ann, Joey [address], [place], [address]. tel: [phone] ring Provider: Job Ann, [address], [place], [address]. tel:[phone] [address] , [place], [place], [address], [place] tel: [phone] Pulmonary Hilar mass 0 Juanjose Medina [address] [place] [address], [facility], [place]. tel:[phone] Referring Provider: Estefani Moulton, [address] [facility] [address], [place], [address]. tel:[phone] Office/Establ ished Level [address] [place], [id number], [place] tel:[phone] Family Medicine At [facility] Follow Up of Hyperlipidem ia (chief complaint)Fo llow Up of Hypertension (chief complaint)Hy pogonadism (chief complaint)Vyas nd arthritis (chief complaint) Mixed hyperlipidem iaHilar massEssentia l (primary) hypertension Hypogonadism in maleLong term use of drugBody mass index (BMI) 29.0-29.9, adult 0 Seth Kaiser. [address] , [place], [place], [address], [place]. tel:[phone] Referring Provider: Job Ann, [address] [facility], [place], [address]. tel:[phone] , [place], [place], [address], [place] tel:[phone] Internal Medicine [facility] No Information 0 Seth Kaiser. [address] [place], [place], [address], [place]. tel:[phone] [place], [address], [place] tel:[phone] Lab At 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 [address] [place], [address], [place]. tel:[phone] Referring Provider: Job Ann, [address] , [place], [address]. tel:[phone] [place], [address], [place] tel:[phone] Family Medicine At [facility] 0 Seth Kaiser. [address], [place], [place], [address], [place]. tel:[phone] , [place], [address], [place] tel: [phone] Family Medicine At [facility] 0 Seth Kaiser. [address], [place], [place], [address], [place]. tel:[phone] , [place], [place], [address], [place] tel: [phone] CT Scan At [facility] Essential (primary) hypertension 0 Barrett Blanco. [address] [place] [address], [id number], [place]. tel:[phone] Referring Provider: Job Ann, [address] , [place], [address]. tel:[phone] Office Consult Level [address] [place], [address], [place] tel:[phone] ENT At [place] [address] hoarseness (chief complaint) DysphoniaPar alysis of vocal cords and larynx, unilateralBo dy mass index (BMI) 30.0-30.9, adult 0 Barrett Blanco. [address] [place] [address], [id number], [place]. tel:[phone] Referring Provider: Job Ann, [address], [place], [address]. tel:[phone] [place], [place], [address], [place] tel:[phone] Family Medicine At [facility] Change in voice 0 Seth Kaiser. [address], [place], [place], [address], [place]. tel:[phone] Office/Establ ished Level [address] [place], [id number], [place] tel:[phone] Clinic Virtual voice loss (chief complaint) Laryngitis 0 Jalyn Paz. [address] [place], [address], [place]. tel:[phone] Referring Provider: Brandi Gunderson, [address] [place], [address]. tel:[phone] , [place], [address], [place] tel:[phone] Special Testing At 1202 No Information 0 Misbah Jordan. [address] [place] [address] [place], [id number], [place]. tel:[phone] Referring Provider: Julian Crawley, [address] [place] [address] [place], [address]. tel:[phone] [place], [address], [place] tel:[phone] X Ray At 1202 No Information 0 Misbah Jordan. [address] [place] [address] [place], [address], [place]. tel:[phone] Referring Provider: Julian Crawley, [address] [place] [address] [place], [address]. tel:[phone] Office/New Level [address] [place], [id number], [place] tel:[phone] Cardiology At 1202 Coronary artery disease (chief complaint)hy pertension (chief complaint)hy perlipidemia (chief complaint)to bacco use (chief complaint) Mixed hyperlipidem iaEssential (primary) hypertension Atherosclero tic heart disease of [place] coronary artery without angina pectorisToba senior staff accountant abuseCoughBo dy mass index (BMI) 31.0-31.9, adult 0 Misbah Jordan. [address] [place] [address] [place], [id number], [place]. tel:[phone] Referring Provider: Job Ann, [address], [place], [address]. tel: [phone] [address] [place], [address], [place] tel: [phone] Lab At [facility] Mixed hyperlipidem ia 0 Seth Kaiser. [address] , [place], [place], [address], [place]. tel:[phone] Referring Provider: Job Ann, [address], [place], [address]. tel: [phone] Office/Establ ished Level [address] , [place], [place], [address], [place] tel: [phone] Family Medicine At [facility] Discuss Heart Score (chief complaint)hy perlipidemia (chief complaint) Elevated coronary artery calcium scoreMixed hyperlipidem iaBody mass index (BMI) 31.0-31.9, adult Nov- 0 Seth Kaiser. [address] , [place], [place], [address], [place]. tel:[phone] Referring Provider: Job Ann, [address] , [place], [address]. tel: [phone] [address] [place], [address], [place] tel: [phone] [facility] CT At [place] No Information 0 yR Tee. [address] [place] [address], [address], [place]. tel:[phone] Referring Provider: Randal Raza, [address] [place] [address], [address]. tel: [phone] Preventative Established 40-64 yrs [address] [place], [address], [place] tel: [phone] Family Medicine [facility] Preventive exam (chief complaint) Body mass index (BMI) 32.0-32.9, adultEssenti al (primary) hypertension Tobacco abuseMixed hyperlipidem iaBarrett's esophagus without dysplasiaHyp ogonadism in maleLong term use of drug 0 Seth Kaiser. [address], [place], [place], [address], [place]. tel:[phone] Referring Provider: Jazzy Diaz, [address], [place], [address]. tel:[phone] , [place], [place], [address], [place] tel:[phone] Lab At [facility] Mixed hyperlipidem iaTesticular hypofunction Encounter for screening for malignant neoplasm of prostate 0- 0 Seth Kaiser. [address], [place], [place], [address], [place]. tel:[phone] Referring Provider: Gricelda Warner, [address] [facility] [address], [place], [address]. tel:[phone] Office/Establ ished Level [address] [place], [id number], [place] tel:[phone] Orthopedics At [facility] Knee Pain (chief complaint) Osteoarthrit is of right knee, unspecified osteoarthrit is typeBody mass index (BMI) 32.0-32.9, adult Mar--201 9 Antonio tabares [address] [place] [address] [place], [address], [place]. tel:[phone] Referring Provider: Pranay Alvarez, [address] [place] [address] [place], [address]. tel:[phone] Office/Establ ished Level [address] [place], [address], [place] tel:[phone] Family Medicine At [facility] Follow Up of Hyperlipidem ia (chief complaint)Fo llow Up of Hypertension (chief complaint)GE RD (chief complaint) Hypogonadism in maleLong term use of drugEssentia l (primary) hypertension Mixed hyperlipidem iaBarrett's esophagus without dysplasiaTob acco abuseBody mass index (BMI) 32.0-32.9, [facility] for screening for malignant neoplasm of prostate Feb- 9 Sandeepmarbella Job. [address] , [place], [place], [address], [place]. tel:[phone] Referring Provider: Gricelda Warner, [address] [facility] [address], [place], [address]. tel:[phone] [place], [address], [place] tel: [phone] Lab At [facility] Testicular hypofunction Essential (primary) hypertension Feb- 9 Seth Kaiser. [address] , [place], [place], [address], [place]. tel:[phone] Referring Provider: Jazzy Diaz, [address] [facility], [place], [address]. tel:[phone] [address] [place], [address], [place] tel: [phone] [facility] Internal Medicine At [facility] Essential (primary) hypertension Hypogonadism in maleMixed hyperlipidem ia 9 Timmy Madison. [address] [facility] Alexia, [address], [place], [place], [address], [place]. tel:[phone] Office/Establ ished Level [address] [place], [address], [place] tel:[phone] Orthopedics At [place] 8114 Knee Pain (chief complaint) Osteoarthrit is of right knee, unspecified osteoarthrit is typeBody mass index (BMI) 31.0-31.9, adult Apr-0 9 Antonio tabares [address] [place] [address] [place], [address], [place]. tel:[phone] Referring Provider: Pranay Alvarez, [address] [place] [address] [place], [address]. tel:[phone] Office Consult Level [address] [place], [address], [place] tel:[phone] Orthopedics At [facility] Knee Pain (chief complaint) Body mass index (BMI) 31.0-31.9, adultOsteoar thritis of right knee, unspecified osteoarthrit is typePain in right knee Nov- 9 Anotnio tabares [address] [place] [address] [place], [address], [place]. tel:[phone] Referring Provider: Gricelda Warner, [facility] [facility] [address], [place], [address]. tel:[phone] [place], [address], [place] tel:[phone] X Ray At [facility] No Information Nov- 9 Antonio tabares [address] [place] [address] [place], [address], [place]. tel:[phone] Referring Provider: Pranay Alvarez [address] [place] [address] [place], [address]. tel:[phone] [place], [address], [place] tel:[phone] Family Medicine At [facility] Pain in right kneeOsteoart hritis of right knee, unspecified osteoarthrit is type Mar-0 9 Timmy Madison. [address], [address], [place], [place], [address], [place]. tel:[phone] Office/Establ ished Level [address] [place], [id number], [place] tel:[phone] Family Medicine At [facility] Joint pain (chief complaint) Body mass index (BMI) 31.0-31.9, adultChronic pain of right kneeOther chronic painOsteoart hritis of right knee, unspecified osteoarthrit is type 9 Timmy Madison. [address] [facility] Alexia, [address], [place], [place], [address], [place]. tel:[phone] Referring Provider: Gricelda Warner, [address], [place], [address]. tel: [phone] Office/Establ ished Level [address] [place], [address], [place] tel: [phone] Gastroenter ology At 1202 10-14 day follow up after procedure (chief complaint) Body mass index (BMI) 31.0-31.9, adultBarrett 's esophagus without dysplasia 9 Maddy Tee. [address] [place] [address] [place], [address], [place]. tel:[phone] Referring Provider: Jazzy Diaz, [address] [facility], [place], [address]. tel: [phone] [address] [place], [address], [place] tel: [phone] Gastroenter ology At 1202 No Information 8 Maddy Tee. [address] [place] [address] [place], [address], [place]. tel:[phone] Referring Provider: Randal Castañeda, [address] [place] [address] [place], [address]. tel: [phone] Office Consult Level [address] [place], [address], [place] tel: [phone] Gastroenter ology At 1202 Dysphagia (chief complaint) Body mass index (BMI) 30.0-30.9, adultHeartbu rnDysphagia, unspecified 8 Maddy Tee. [address] [place] [address] [place], [id number], [place]. tel:[phone] Referring Provider: Gricelda Warner, [address], [place], [address]. tel:[phone] Preventative Established 40-64 yrs [address] [place], [address], tel:[phone] Family Medicine [facility] Preventive exam (chief complaint) Encntr for general adult medical exam w/o abnormal findingsEsse ntial (primary) hypertension Hypogonadism in malePersonal history of nicotine dependenceGa stroesophage al reflux disease without esophagitisB dalton mass index (BMI) 31.0-31.9, adultMixed hyperlipidem iaRefused diphtheria-t etanus vaccinePhary ngoesophagea l dysphagia 8 Timmy Madison. [address], [address], [place], [place], [address], [place]. tel:[phone] Referring Provider: Joey Mckeon [address], [place], [address]. tel:[phone] [place], [place], [address], [place] tel:[phone] Lab [facility] Essential (primary) hypertension Testicular hypofunction 8 Timmy Madison. [address], [facility] 300[place], [place], [address], [place]. tel:[phone] Referring Provider: Joey Mckeon [address] [place], [address]. tel:[phone] Office/Establ ished Level [address] [place], [address], [place] tel:[phone] Family Medicine [facility] Chronic conditions (chief complaint) Essential (primary) hypertension Hypogonadism in malePersonal history of nicotine dependenceGa stroesophage al reflux disease without esophagitis 8 Timmy Madison. [address], [address], [place], [place], [address], [place]. tel:[phone] Referring Provider: Jazzy Diza [address], [place], [address]. tel: [phone] [address] [place], [address], [place] tel: [phone] Family Medicine At [facility] Testicular hypofunction Essential (primary) hypertension 8 Joe Jazzy. [address], [place], [place], [address], [place]. tel:[phone] Referring Provider: Jazzy Diaz [address], [place], [address]. tel: [phone] Preventative Established 40-64 yrs [address] [place], [address], [place] tel: [phone] Family [facility] At [facility] Preventive exam (chief complaint) Encntr for general adult medical exam w/o abnormal findingsEsse ntial (primary) hypertension Testicular hypofunction Gastroesopha geal reflux disease without esophagitisP ersonal history of nicotine dependenceBo dy mass index (BMI) 31.0-31.9, adult Nov- 7 Joe Jazzy. [address], [place], [place], [address], [place]. tel:[phone] Referring Provider: Jazzy Diaz [address], [place], [address]. tel: [phone] [address] [place], [place], [address], [place] tel: [phone] [facility] Testicular hypofunction Essential (primary) hypertension 7 Joe Jazzy. [address], [place], [place], [address], [place]. tel:[phone] Referring Provider: Jazzy Diaz [address], [place], [address]. tel: [phone] [address] [place], [address], [place] tel: [phone] Surgery At 1202 post OP (chief complaint) Postoperativ e visit Anamaria Peterson. [address] [place] [address], [address], . tel:[phone] Referring Provider: Kristen Conrad, [address] [place] [address], [address]. [phone] , [place], [place], [address], [place] tel:[phone] Surgery At 1202 post OP (chief complaint) Body mass index (BMI) 30.0-30.9, adultPostope rative visit Anamaria Peterson. [address] [place] [address], [address], [place]. tel:[phone] Referring Provider: Kristen Conrad, [address] [place] [address], [address]. tel:[phone] , [place], [place], [id number], [place] tel:[phone] Surgery At 1202 Sebaceous cyst (chief complaint) Epidermoid cyst Anamaria Peterson. [address] [place] [address], [address], [place]. tel:[phone] Referring Provider: Jazzy Diaz, [address], [place], [address]. tel:[phone] Office/Establ ished Level [address] , [place], [place], [id number], [place] tel:[phone] [facility] hypertension (chief complaint)hy perlipidemia (chief complaint)Hy pogonadism (chief complaint)GE RD (chief complaint)sm oking (chief complaint) Essential (primary) hypertension Hypogonadism in maleGastroes ophageal reflux disease without esophagitisS moking 7 Joe Purcell. [address], [place], [place], [address], [place]. tel:[phone] Referring Provider: Jazzy Diaz [address], [place], [address]. tel:[phone] [place], [id number], tel:[phone] [facility] Encntr for general adult medical exam w/o abnormal findings Dec- Joe Purcell. [address], [place], [place], [id number], [place]. tel:[phone] Referring Provider: Jazzy Diaz, [address], [place], [address]. tel:[phone] , [place], [place], [id number], [place] tel:[phone] [facility] Encntr for general adult medical exam w/o abnormal findings Dec- Joe Purcell. [address], [place], [place], [id number], [place]. tel:[phone] Referring Provider: Jazzy Diaz [address], [place], [address]. tel:[phone] [place], [id number], [place] tel:[phone] [facility] Skin lesion (chief complaint) Epidermoid cyst Dec- Joe Purcell. [address], [place], [place], [address], [place]. tel:[phone] Referring Provider: Jazzy Diza [address], [place], [address]. tel:[phone] Office/Establ ished Level [address] [place] [id number], [place] tel:[phone] [facility] Skin lesion (chief complaint) Abscess Dec- 7 Joe Purcell. [address], [place], [place], [address], [place]. tel:[phone] Referring Provider: Jazzy Diaz [address], [place], [address]. tel:[phone] Office/Establ ished Level [address] , [place], [place], [address], [place] tel:[phone] [facility] Sinus symptoms (acute) (FP) (chief complaint) Acute non-recurren t maxillary sinusitis 6 Joe Purcell. [address], [place], [place], [address], [place]. tel:[phone] Referring Provider: Jazzy Diaz, [address], [place], [address]. tel:[phone] , [place], [place], [address], [place] tel:[phone] [facility] Encntr for general adult medical exam w/o abnormal findings 6 Joe Purcell. [address], [place], [place], [address], [place]. tel:[phone] Referring Provider: Jazzy Diaz [address], [place], [address]. tel:[phone] , [place], [place], [id number], [place] tel:[phone] X Ray At 1202 No Information 6 Armando Aguilar. [address] [place] [address], [address], [place]. tel:[phone] Referring Provider: Lauren Roberts, [address] [place] [address], [address]. tel:[phone] Office/Establ ished Level [address] [place], [place], [id number], [place] tel:[phone] Orthopedics At 1202 Knee Pain (chief complaint) Primary osteoarthrit is of right knee 6 Armando Aguilar. [address] [place] [address], [address], [place]. tel:[phone] Referring Provider: Jazzy Diaz [address], [place], [address]. tel:[phone] Preventative Established 40-64 yrs [address] [place], [id number], [place] tel:[phone] [facility] Preventive exam (chief complaint) Encntr for general adult medical exam w/o abnormal findingsEsse ntial (primary) hypertension Body mass index (BMI) 29.0-29.9, adultSmoking Pain in right kneeOther chronic painHypogona dism in male Jun- 6 Joe Purcell. [address], [place], [place], [address], [place]. tel:[phone] Referring Provider: Jazzy Diaz [address], [place], [address]. tel:[phone] [place], [address], [place] tel:[phone] [facility] Testicular hypofunction Jun- 6 Joe Purcell. [address], [place], [place], [address], [place]. tel:[phone] Referring Provider: Jazzy Diaz [address], [place], [address]. tel:[phone] [place], [address], [place] tel:[phone] [facility] hypertension (chief complaint)hy perlipidemia (chief complaint)Hy pogonadism (chief complaint) Essential (primary) hypertension Hypogonadism in male Apr-0 8 6 Joe Purcell. [address], [place], [place], [address], [place]. tel:[phone] Referring Provider: Jazzy Diaz [address], [place], [address]. tel:[phone] [place], [address], [place] tel: [phone] [facility] Testicular hypofunction Encntr for general adult medical exam w/o abnormal findings 6 Joe Purcell. [address], [place], [place], [address], [place]. tel:[phone] Referring Provider: Jazzy Diaz, [address], [place], [address]. tel: [phone] [address] , [place], [place], [id number], [place] tel: [phone] [facility] [place] external right ear cyst (chief complaint) Cyst on ear 5 Barrett Blanco. [address] [place] [address], [place], [place], [address], [place]. tel:[phone] Referring Provider: Jazzy Diaz, [address] [facility], [place], [address]. tel: [phone] [address] , [place], [place], [address], [place] tel: [phone] Gastroenter ology At [facility] Follow Up of procedure (chief complaint) Benign neoplasm of ascending colon 5 Maddy Tee. [address] [place] [address] , [place], [place], [address], [place]. tel:[phone] Referring Provider: Randal Castañeda, [address] [place] [address] , [place], [address]. tel: [phone] [address] , [place], [place], [address], [place] tel: [phone] [facility] Ear discomfort (chief complaint) Swelling of right earBilateral impacted cerumen 5 Joe Purcell. [address] , [place], [place], [address], [place]. tel:[phone] Referring Provider: Jazzy Diaz, [address], [place], [address]. tel: [phone] [address] [place], [address], [place] tel:[phone] [facility] Preventive exam (chief complaint) No Information 5 Joe Purcell. [address] , [place], [place], [address], . tel:[phone] Referring Provider: Jazzy Diaz, [address] , [place], [address]. tel:[phone] , [place], [place], [address], tel:[phone] [facility] Preventive exam (IM) (chief complaint)Hy pogonadism (chief complaint) No Information Humphrey Webb. [address], [place], [facility], . Referring Provider: Job Ann, [address] , [place], [address]. tel:[phone] Family History Family Member Type Diagnosis Age [...] virus 3 years or older, Fluarix Quad 6208-2720 refused Source: Ne w Immunization Record Influenza, injectable, quadrivalent, preservative free, 3 yrs or older administered Source: Other [employer] try Payers Payer name Insurance type Covered alliance party ID Authortanga tirichard(s) [employer] [place] [id number] BCBS [facility] - [place] [id number] Social History Type Description Quantity Date Captured [...] Referral Referred To: Francis Morejon MD [address] [employer], [place], [id number] Ordered: Referrals: Referrals: Referrals: Oncology. Francis Morejon MD. Consult ordered Referral Ordered: Referrals: Referrals: Pulmonology. Consult ordered Referral Ordered: Referrals: Referrals: Otolaryngology. Consult ordered Referral Referred To: Randal Raza MD [facility] [place], [phone] Ordered: Referrals: Cardiology. Randal Raza MD. Consult ordered Referral Ordered: Ren Canela M.D. (related to Osteoarthritis of right knee, unspecified osteoarthritis type) ordered Referral Referred To: Ren Canela M.D. Ordered: Referrals: Alternative Medicine. Ren Canela M.D.. Location: [facility]. Consult ordered Referral Ordered: Referrals: [...] Radiol ogy Order CT CHEST WO CONTRAST ([id number]), Collected on: , Sent on: Sent Future Order: Radiol ogy Order XR SCREENING OF EYE FOR DETECTION OF FOREIGN BODY ([id number]), Sent on: Sent Future Order: Lab Order IStommyt Janes adames ([id number]), Ordered on: Ordered Future Order: Radiol ogy Order Echo 2D Color Doppler (TTE W/ Doppler, Complete) ([id number]), Collected on: , Sent on: Sent History [...] and weight loss. Additional information: managed by [facility] oncology Dr. Vanegas HFU was admitted to [facility] with infected port and pneumonia HFU (comments) This visit was a virtual visit via [employer] to [employer] . The patient understood that they may [...] hypertension hyperlipidemia tobacco use Coronary artery disease hyperlipidemia (comments) chroni c, stable hypertension (comments) [...] Dr. 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 Follow Up of Hyperlipidemia Risk factors include age over 50. The patient is adhering to medication for their hyperlipidemia. Pertinent negatives include chest pain. Additional information: LDL is OK at this time. hoarseness (comments) 2-month hi story of hoarseness. [...] c, stable tobacco use (comments) chronic, stable Coronary artery disease tobacco use hyperlipidemia hypertension Coronary artery disease hyperlipidemia Risk factors inc lude age over 50. The patient is adhering to medication for their hyperlipidemia. Hyperlipidemia management includes statins. Pertinent negatives include chest pain. Discuss Heart Score Calcium jihan solorio's OK at this time. Preventive exam Knee Pain Severity level i [...] I'm on injections for that. doctor in [facility] had me on q2 wks and [...]
[2024-10-16 12:25] LABS: Alanine Aminotransferase 31 U/L (0-40); Alkaline Phosphatase 60 U/L (39-117); Anion Gap 6 (12-20); Aspartate Amino Transferase 29 U/L (5-37); Bilirubin Total 0.8 mg/dL (0.0-1.0); Blood Urea Nitrogen 28 mg/dL (9-16); Calcium 9.2 mg/dL (8.4-10.2); Carbon Dioxide 30 mmol/L (22-29); Chloride 106 mmol/L (96-108); Cholesterol 112 mg/dL (<200); Estimated Glomerular Filt Rate 40; Glucose Fasting 105 mg/dL (60-99); HDL Cholesterol 33 mg/dL (>40); LDL Cholesterol Calculated 69 mg/dL (<100); Potassium 4.2 mmol/L (3.3-5.1); Sodium 138 mmol/L (135-145); Total Protein 7.8 g/dL (6.5-8.0); Triglycerides 54 mg/dL (<150)
[2024-10-16 12:51] LABS: TSH reflex Free T4 0.68 uIU/mL (0.32-4.0); Vitamin D 25-OH Total 37.9 ng/mL (>30)
[2024-10-16 12:53] LABS: Folate 7.2 ng/mL (> or = 4.0); Vitamin B12 665 pg/mL (200-900)
== END 2024-10-16 11:07 | disposition home or self-care (01) ==
LOC: HO.LAB 11:06
PROVIDERS: PCP Internal Medicine; Visit Provider Internal Medicine
DX: D64.9 Anemia, unspecified (principal); E11.9 Type 2 diabetes mellitus without complications; E78.00 Pure hypercholesterolemia, unspecified; E53.8 Deficiency of other specified B group vitamins; E55.9 Vitamin D deficiency, unspecified
CPT/HCPCS: 36415; 80053; 80061; 81001; 82043; 82306; 82570; 82607; 82746; 83036; 84443; 85025

== ENCOUNTER 2024-10-22 13:54 | Outpatient (AMB) | payer BC, SELFPAY ==
[2024-10-22 14:19] VITALS: BP 138/78; PULSE 92; O2SAT 94; BMI 36.0
--- NOTE | 2024-10-22 14:19 | A.OFFPC_ITS ---
Vital Signs 10/22/24 14:19 Height 5 ft 9 in Weight 244 lb BMI 36.0 BP 138/78 Blood Pressure Location Lt brachial Position Sitting Pulse 92 Pulse Source Pulse Oximeter Pulse Oximetry (%) 94 Oxygen Delivery Method Room Air Intake Visit Reasons: 4 month f/u Allergies regadenoson [From Lexiscan] Adverse Reaction (Severe, Verified 10/23/24 15:04) seizure type activity Medication List - Last Reconciled 10/23/24 by LIN Avila alcohol swabs (BD Alcohol Swabs) 1 pad topical QID amlodipine 5 mg PO DAILY atorvastatin 20 mg PO BEDTIME 90 days blood sugar diagnostic (OneTouch Verio test strips) 1 strip miscellaneous TID 30 days blood sugar diagnostic (OneTouch Ultra Test strips) As directed -tests 4 X/day blood-glucose meter (RotaBanTouch Ultra2 Meter) As directed tests 4 X/day blood-glucose meter,continuous (FreeStyle Tish 3 Bethany) As directed blood-glucose sensor (FreeStyle Tish 3 Sensor device) As directed bumetanide 2 mg PO BID 30 days carvedilol 12.5 mg PO BID cholecalciferol (vitamin D3) 50 mcg PO DAILY 90 days hydralazine 100 mg PO TID 90 days insulin glargine (Basaglar KwikPen U-100 Insulin) 10 units (0.1 mL) subcut QPM 30 days isosorbide mononitrate ER 60 mg PO DAILY 90 days lancets As directed lancets (RotaBanTouch UltraSoft Lancets) As directed-tests 4 X/day pen needle, diabetic As directed spironolactone 50 mg (2 x 25 mg) PO QAM tamsulosin 0.4 mg PO DAILY 90 days Trulicity (dulaglutide) 1.5 mg (0.5 mL) subcut QWEEK 30 days NS Tobacco use date assessed: 10/22/24 Dental Screening Dental Screen Date: 10/22/24 Did you have a dental visit in the last 12 months?: Yes Did you have a dental problem in the last 6 months where you did not have access to dental care?: No Was dental information given to patient?: Patient has dentist HPI 4 month f/u HPI Details Patient is a 59-year-old male with significant past medical history of charcot's athropathy diabetic, cardiomyopathy, nonsustained ventricular tachycardia, status post cardiac pacemaker, chronic kidney disease, amputation of toe of right foot, complete heart block, 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 Glass. He was last seen in office on 05/29/2024 Patient reports that he is feeling okay today The patient reports that he had an abdominal CT done and would like to know the results Abdominal CT which was done due to concerns of hepatomegaly --results showed that liver was normal-s ize. Incidental finding off cholelithiasis. Patient denies abdominal pain, discussed these findings with patient and told the patient to contact the office if he start having abdominal pain He denies shortness of breath, chest pain, palpitation and dizziness Reports that he is moving his bowels okay and denies urinary symptoms Reports chronic swelling in right lower leg/ankle Patient reports that he has a appointment with Cardiology tomorrow [facility] Medical History Vitamin D deficiency Obesity (BMI 30-39.9) Pure hypercholesterolemia Benign essential hypertension Combined systolic and diastolic congestive heart failure Chronic kidney disease (CKD), stage III (moderate) Diabetic foot ulcer with osteomyelitis Complete heart block CHF (congestive heart failure) BPH (benign prostatic hyperplasia) Proteinuria Hyperlipidemia Essential hypertension Normally functioning cardiac pacemaker present Chronic right heart failure Heart block CKD (chronic kidney disease) Hypertension Type 2 diabetes mellitus Pacemaker Surgical History History of amputation of toe Type 2 diabetes mellitus with other diabetic kidney complication History of cardiac pacemaker (~04/15/20) Family History Mother CVA (cerebral vascular accident) Diabetes Social History Housing: Apartment Alcohol intake: never Patient Tobacco Use Status: Never used Tobacco Tobacco use type: Cigarette e-Cigarette/Vaping Use: Never Used Second Hand Smoke Exposure: Yes service: Yes Current occupational status: employed Cognitive needs: No Hearing needs: No Vision needs: No Questionnaire PHQ-9 Over the last 2 weeks, how often have you been bothered by any of the following problems? 1. Little interest or pleasure in doing things: not at all 2. Feeling down, depressed, or hopeless: not at all 3. Trouble falling or staying asleep, or sleeping too much: not at all 4. Feeling tired or having little energy: not at all 5. Poor appetite or overeating: not at all 6. Feeling bad about yourself - or that you are a failure or have let yourself or your family down: not at all 7. Trouble concentrating on things, such as reading the newspaper or watching television: not at all 8. Moving or speaking so slowly that other people could have noticed. Or the opposite - being so fidgety or restless that you have been moving around a lot more than usual: not at all 9. Thoughts that you would be better off or of hurting yourself in some way: not at all Total score: 0 Depression Screening Interpretation: Negative Depression Screening Done: Yes 95727 - PHQ-9 Billing: Yes Source: Developed by Drs. Guille Fam, Simran Mcginnis, Sohan Cardenas and colleagues, with an educational fausto from [employer]. Thrive Questionnaire Date Thrive assessed: 10/22/24 I am a: Patient What is your living situation today?: I have a steady place to live Within the past 12 months, did the food you bought not last and you didn't have the money to get more?: Never true Within the past 12 months, did you worry whether your food would run out before you got money to buy more?: Never true Do you have trouble paying for medicines?: No Do you have trouble getting transportation to medical appointments?: No Do you have trouble paying your heating and electricity bill?: No Do you have trouble taking care of your child, family member or friend?: No Do you have trouble with day-to-day activities such as bathing, preparing meals, shopping, managing finances, etc.?: No Are you currently unemployed and looking for a job?: No Are you interested in more education?: No Please select the resources that you would like help with: None Currently or been in a relationship where the following occur: No concerns reported THRIVE Score: 0 AUDIT C Alcohol Use Questionnaire (AUDIT-C) 1. How often do you have a drink containing alcohol?: Never 3. How often do you have six or more drinks on one occasion?: Never Total Score: 0 Score Reviewed/Action Taken: Yes NEETA-7 AMB Questionnaire NEETA-7 Date NEETA - 7 assessed: 10/22/24 Feeling nervous, anxious, or on edge: 0 = Not at all Not being able to stop or control worryin = Not at all Worrying too much about different things: 0 = Not at all Trouble relaxin = Not at all Being so restless that it is hard to sit still: 0 = Not at all Becoming easily annoyed or irritable: 0 = Not at all Feeling afraid as if something awful might happen: 0 = Not at all Total NEETA-7 score (0-4 normal; 5-9 mild; 10-14 moderate; 15-21 severe): 0 Source: Developed by Drs. Guille Fam, Simran Mcginnis, Sohan Cardenas and colleagues, with an educational fausto from [employer]. NEETA-7 Assessment Billing NEETA-7 Assessment Tool: NEETA-7 Assessment 19448 Review of Systems Const Details: Denies chills, Denies fatigue, Denies fever(s), Denies headache(s) and Denies weakness HEENT Denies change in vision, Denies dizziness, Denies headache(s), Denies hearing loss, Denies nasal congestion, Denies sinus pain, Denies sinus pressure and Denies sore throat Card Denies chest pain, Denies lightheadedness, Denies dyspnea and Denies other (palpitations) Resp Denies cough, Denies dyspnea and Denies wheezing GI Denies abdominal pain, Denies melena, Denies hematochezia, Denies change in bowel habits, Denies dyspepsia and Denies nausea Denies hematuria and Denies dysuria Musc +arthralgias in right foot/right ankle Denies numbness and Denies tingling Skin/Breast Denies rash, Denies unusual bruising and Denies wounds Neuro Denies abnormal gait, Denies dizziness, Denies headache(s), Denies memory loss, Denies numbness, Denies Sensory deficit (Neuro), Denies tingling and Denies weakness Psych Denies anxiety, Denies depression and Denies memory loss Endo Denies cold intolerance, Denies fatigue, Denies heat intolerance, Denies polydipsia and Denies polyuria Rayshawn/Lymph Denies easy bleeding and Denies easy bruising Aller/Immun Denies wheezing Physical exam (Primary Care) Vital Signs: Last Vital Signs Pulse 92 10/22/24 14:19 BP 138/78 10/22/24 14:19 Pulse Ox 94 10/22/24 14:19 Oxygen Delivery Method Room Air 10/22/24 14:19 BMI result Body Mass Index 36.0 Tobacco/Smoking Status: Tobacco use Status Tobacco use date assessed 10/22/24 10/22/24 14:24 Patient Tobacco Use Status Never used Tobacco 10/22/24 14:24 Tobacco use type Cigarette 10/22/24 14:24 e-Cigarette/Vaping Use Never Used 10/22/24 14:24 PHQ-9: PHQ-9 Score PHQ-9: Total score 0 10/23/24 15:01 Depression Screening Interpretation: Negative Thrive Assessment: Date of Thrive Assessment Date Thrive assessed 10/22/24 10/22/24 14:24 Currently or been in a relationship where the following occur: No concerns reported Const Other: General: no acute distress, well developed, alert and awake Nutritional Appearance: well nourished Orientation/consciousness: patient oriented x3 HENMT Head: Yes normocephalic and Yes atraumatic Ears: hearing grossly normal bilaterally and TM's normal bilaterally General nose exam: Normal external nose present and Normal nares present Mouth: Normal oral and palatal mucosa present and moist mucous membranes Eyes Pupils: Equal, round and reactive pupils present and Pupil accommodation reflex normal EOM: EOMs intact bilaterally Neck Neck: Yes normal visual inspection, Yes no lymphadenopathy and Yes trachea m idline Thyroid: Thyroid normal Lymphatic: no lymphadenopathy noted Chest Chest palpation & inspection: normal inspection of the chest Resp Effort & Inspection: normal respiratory effort Auscultation: clear to auscultation bilaterally Cardio Rate: regular rate Rhythm: regular rhythm Heart sounds: S1 normal heart sound present, S2 normal heart sound present, no gallops, no murmurs and no rubs GI Palpation (GI): Abdomen is soft and nontender to palpation Auscultation: normal bowel sounds General: Yes no CVA tenderness Back/Spine/Pelvis Back: no CVA tenderness Cervical Spine: cervical ROM normal and No Cervical spine tenderness Thoracic/Lumbar Spine: No lumbar tenderness General: warm and dry. Normal skin color. Normal skin turgor Lesions: no lesions Nails: normal Neuro General: patient oriented x3, gait normal Cranial nerves: Yes Equal, round and reactive pupils present Cognition (Neuro): normal cognition Gait exam (Neuro): Normal gait present Extrem General: +2 nonpitting edema in right lower extremity and No calf tenderness Psych Appearance: grossly normal Affect: normal affect Attitude: cooperative Thought process: Normal thought process present Results Reviewed Results Reviewed: Laboratory Tests 10/16/24 10/16/24 11:19 11:23 WBC 5.4 RBC 4.84 Hgb 12.8 L Hct 39.3 L MCV 81.2 MCH 26.4 L Sodium 138 Potassium 4.2 Chloride 106 Carbon Dioxide 30 H Anion Gap 6 L BUN 28 H Creatinine 1.76 H Fasting Glucose 105 H Hemoglobin A1c % 6.4 H AST 29 ALT 31 Alkaline Phosphatase 60 Triglycerides 54 Cholesterol 112 LDL Cholesterol, Calc 69 HDL Cholesterol 33 L Vitamin B12 665 25-OH Vitamin D Total 37.9 Folate 7.2 TSH 0.68 Urine Color Yellow Urine Appearance Clear Urine pH 7.5 Ur Specific Dyer 1.015 Urine Protein 30 (1+) H Urine Glucose (UA) Negative Urine Ketones Negative Urine Blood Negative Urine Nitrite Negative Ur Leukocyte Esterase Negative Urine Creatinine 124.95 Urine Microalbumin 210.0 Microalb/Creat Ratio 168.0 H Coding Level of Care Code Est Pt Level 4 (31437) Diagnoses Vitamin D deficiency E55.9 Pure hypercholesterolemia E78.00 Benign essential hypertension I10 Stage 3b chronic kidney disease N18.32 Chronic kidney disease stage 3 subtype: stage 3b (GFR 30-44) Anemia due to stage 3b chronic kidney disease N18.32; D63.1 Anemia type: due to chronic kidney disease Chronic kidney disease stage: stage 3 (moderate) Chronic kidney disease stage 3 subtype: stage 3b (GFR 30-44) Complete heart block I44.2 Chronic right heart failure I50.812 Additional Codes PHQ-9 - 71471 - PHQ-9 Billing: Yes ([id number]) NEETA-7 Assessment Billing - NEETA-7 Assessment Tool: NEETA-7 Assessment 72314 ([id number]) Time Spent (min) 36 Assessment & Plan Assessment & Plan (1) Vitamin D deficiency: Code(s): E55.9 - Vitamin D deficiency, unspecified Category: Medical Plan: Vitamin-D is 37.9 on current labs Continue cholecalciferol 50 mcg daily (2) Pure hypercholesterolemia: Code(s): E78.00 - Pure hypercholesterolemia, unspecified Category: Medical Plan: tri 54, ldl 69, hdl 33, tchol 112 Continue atorvastatin 20 mg at bedtime will recheck labs in 4 months (3) Benign essential hypertension: Code(s): I10 - Essential (primary) hypertension Category: Medical Plan: Blood pressure is within normal limits Continue amlodipine 10 mg daily, carvedilol 12.5 mg b.i.d., hydralazine 100 mg t.i.d., isosorbide ER 60 mg daily and spironolactone 50 mg q.a.m. Monitor blood pressure frequently and continue low-salt diet (4) Chronic kidney disease (CKD), stage III (moderate): Code(s): N18.30 - Chronic kidney disease, stage 3 unspecified Category: Medical Qualifiers: Chronic kidney disease stage 3 subtype: stage 3b (GFR 30-44) Qualified Code(s): N18.32 - Chronic kidney disease, stage 3b Plan: Current creatinine is 1.76 and GFR 40 the same as it was on previous blood work We will continue to monitor GFR closely Follow up with Nephrology as scheduled (5) Anemia: Code(s): D64.9 - Anemia, unspecified Category: Medical Qualifiers: Anemia type: due to chronic kidney disease Chronic kidney disease stage: stage 3 (moderate) Chronic kidney disease stage 3 subtype: stage 3b (GFR 30-44) Qualified Code(s): N18.32 - Chronic kidney disease, stage 3b; D63.1 - Anemia in chronic kidney disease Plan: Patient is slightly improved from previous lab MCH 26.4. The patient was taking iron supplements previously in the past but stopped due to constipation However, anemia has been stable without large fluctuations Follow up with Hematology as scheduled (6) Complete heart block: Comment: S/P pacemaker insertion on 04/15/2020 Code(s): I44.2 - Atrioventricular block, complete Category: Medical Plan: Status post pacemaker insertion on 04/15/2020. Continued to be doing well since Follow up with Cardiology as scheduled (7) Chronic right heart failure: Code(s): I50.812 - Chronic right heart failure Category: Medical Plan: Reinforced fluid restriction Continue bumetanide 2 mg b.i.d., isosorbide mononitrate ER 60 mg daily Previous echocardiogram showed new cardiomyopathy with EF of 35-40% and mild LVH with no valvular abnormalities. Echo prior on 06/26/2022 showed normal EF The patient was on able to undergo a pharmacologic stress test due to having adverse reaction(seizure) to regadenoson in the past The patient also declined any further cardiac testing at the time and decided to continue his current management plan Follow up with Cardiology as scheduled Plan Patient to follow up in 4 months. Please complete labs a week prior to this appointment Orders: Orders Complete Blood Count Auto Diff 4 Months D63.1 - Anemia in chronic kidney disease, E11.610 - Type 2 diabetes mellitus with diabetic neuropathic arthropathy, E11.621 - Type 2 diabetes mellitus with foot ulcer, E11.69 - Type 2 diabetes mellitus with other specified complication, E55.9 - Vitamin D deficiency, unspecified, E78.00 - Pure hypercholesterolemia, unspecified, I10 - Essential (primary) hypertension, I42.9 - Cardiomyopathy, unspecified, I47.29 - Other ventricular tachycardia, L97.509 - Non-pressure chronic ulcer of other part of unspecified foot with unspecified severity, M86.9 - Osteomyelitis, unspecified, N18.32 - Chronic kidney disease, stage 3b, S93.401S - Sprain of unspecified ligament of right ankle, sequela Triiodothyronine T3 Total 4 Months D63.1 - Anemia in chronic kidney disease, E11.610 - Type 2 diabetes mellitus with diabetic neuropathic arthropathy, E11.621 - Type 2 diabetes mellitus with foot ulcer, E11.69 - Type 2 diabetes mellitus with other specified complication, E55.9 - Vitamin D deficiency, unspecified, E78.00 - Pure hypercholesterolemia, unspecified, I10 - Essential (primary) hypertension, I42.9 - Cardiomyopathy, unspecified, I47.29 - Other ventricular tachycardia, L97.509 - Non-pressure chronic ulcer of other part of unspecified foot with unspecified severity, M86.9 - Osteomyelitis, unspecified, N18.32 - Chronic kidney disease, stage 3b, S93.401S - Sprain of unspecified ligament of right ankle, sequela Vitamin D 25-OH Total 4 Months D63.1 - Anemia in chronic kidney disease, E11.610 - Type 2 diabetes mellitus with diabetic neuropathic arthropathy, E11.621 - Type 2 diabetes mellitus with foot ulcer, E11.69 - Type 2 diabetes mellitus with other specified complication, E55.9 - Vitamin D deficiency, unspecified, E78.00 - Pure hypercholesterolemia, unspecified, I10 - Essential (primary) hypertension, I42.9 - Cardiomyopathy, unspecified, I47.29 - Other ventricular tachycardia, L97.509 - Non-pressure chronic ulcer of other part of unspecified foot with unspecified severity, M86.9 - Osteomyelitis, unspecified, N18.32 - Chronic kidney disease, stage 3b, S93.401S - Sprain of unspecified ligament of right ankle, sequela Glucose Fasting 4 Months D63.1 - Anemia in chronic kidney disease, E11.610 - Type 2 diabetes mellitus with diabetic neuropathic arthropathy, E11.621 - Type 2 diabetes mellitus with foot ulcer, E11.69 - Type 2 diabetes mellitus with other specified complication, E55.9 - Vitamin D deficiency, unspecified, E78.00 - Pure hypercholesterolemia, unspecified, I10 - Essential (primary) hypertension, I42.9 - Cardiomyopathy, unspecified, I47.29 - Other ventricular tachycardia, L97.509 - Non-pressure chronic ulcer of other part of unspecified foot with unspecified severity, M86.9 - Osteomyelitis, unspecified, N18.32 - Chronic kidney disease, stage 3b, S93.401S - Sprain of unspecified ligament of right ankle, sequela Comprehensive [place]. Panel Fast 4 Months D63.1 - Anemia in chronic kidney disease, E11.610 - Type 2 diabetes mellitus with diabetic neuropathic arthropathy, E11.621 - Type 2 diabetes mellitus with foot ulcer, E11.69 - Type 2 diabetes mellitus with other specified complication, E55.9 - Vitamin D d eficiency, unspecified, E78.00 - Pure hypercholesterolemia, unspecified, I10 - Essential (primary) hypertension, I42.9 - Cardiomyopathy, unspecified, I47.29 - Other ventricular tachycardia, L97.509 - Non-pressure chronic ulcer of other part of unspecified foot with unspecified severity, M86.9 - Osteomyelitis, unspecified, N18.32 - Chronic kidney disease, stage 3b, S93.401S - Sprain of unspecified ligament of right ankle, sequela Lipid Panel 4 Months D63.1 - Anemia in chronic kidney disease, E11.610 - Type 2 diabetes mellitus with diabetic neuropathic arthropathy, E11.621 - Type 2 diabetes mellitus with foot ulcer, E11.69 - Type 2 diabetes mellitus with other specified complication, E55.9 - Vitamin D deficiency, unspecified, E78.00 - Pure hypercholesterolemia, unspecified, I10 - Essential (primary) hypertension, I42.9 - Cardiomyopathy, unspecified, I47.29 - Other ventricular tachycardia, L97.509 - Non-pressure chronic ulcer of other part of unspecified foot with unspecified severity, M86.9 - Osteomyelitis, unspecified, N18.32 - Chronic kidney disease, stage 3b, S93.401S - Sprain of unspecified ligament of right ankle, sequela UA CC w/rflx Micro + Cult 4 Months D63.1 - Anemia in chronic kidney disease, E11.610 - Type 2 diabetes mellitus with diabetic neuropathic arthropathy, E11.621 - Type 2 diabetes mellitus with foot ulcer, E11.69 - Type 2 diabetes mellitus with other specified complication, E55.9 - Vitamin D deficiency, unspecified, E78.00 - Pure hypercholesterolemia, unspecified, I10 - Essential (primary) hypertension, I42.9 - Cardiomyopathy, unspecified, I47.29 - Other ventricular tachycardia, L97.509 - Non-pressure chronic ulcer of other part of unspecified foot with unspecified severity, M86.9 - Osteomyelitis, unspecified, N18.32 - Chronic kidney disease, stage 3b, S93.401S - Sprain of unspecified ligament of right ankle, sequela Microalbumin, Random (w Creat) 4 Months D63.1 - Anemia in chronic kidney disease, E11.610 - Type 2 diabetes mellitus with diabetic neuropathic arthropathy, E11.621 - Type 2 diabetes mellitus with foot ulcer, E11.69 - Type 2 diabetes mellitus with other specified complication, E55.9 - Vitamin D deficiency, unspecified, E78.00 - Pure hypercholesterolemia, unspecified, I10 - Essential (primary) hypertension, I42.9 - Cardiomyopathy, unspecified, I47.29 - Other ventricular tachycardia, L97.509 - Non-pressure chronic ulcer of other part of unspecified foot with unspecified severity, M86.9 - Osteomyelitis, unspecified, N18.32 - Chronic kidney disease, stage 3b, S93.401S - Sprain of unspecified ligament of right ankle, sequela Hemoglobin A1c 4 Months D63.1 - Anemia in chronic kidney disease, E11.610 - Type 2 diabetes mellitus with diabetic neuropathic arthropathy, E11.621 - Type 2 diabetes mellitus with foot ulcer, E11.69 - Type 2 diabetes mellitus with other specified complication, E55.9 - Vitamin D deficiency, unspecified, E78.00 - Pure hypercholesterolemia, unspecified, I10 - Essential (primary) hypertension, I42.9 - Cardiomyopathy, unspecified, I47.29 - Other ventricular tachycardia, L97.509 - Non-pressure chronic ulcer of other part of unspecified foot with unspecified severity, M86.9 - Osteomyelitis, unspecified, N18.32 - Chronic kidney disease, stage 3b, S93.401S - Sprain of unspecified ligament of right ankle, sequela
--- OUTSIDE RECORDS SUMMARY | 2024-10-22 15:28 | XMS_ITS | Clinical Summary ---
Author Organization [facility] Address [address] [address] Care Team Providers Care Network Security Administrator Name Role Phone Ronnell Glass MD Primary Care Provider [phone] Medications amLODIPine (NORVASC) 10 MG tablet Take [...] to the 100-120s range today. -Diabetic diet -[id number] checks with meals and at bedtime -Patient takes metformin 1000 mg twice daily which was held at admission First degree atrioventricular block 11/14/2020 Overview (11/14/2020): Last Assessment & Plan: EKG does show first-degree AV block with UT 310 ms. Bradycardic after clonidine. Echocardiogram was [...] % PVNMA 08/29/2020 us Rtama Conversion LAB [id number] LICITED RESULTS Final Result PVNMA from Last 3 Months or Most Recently Relevant to Health Maintenance Insurance [facility] Care Teams Network Security Administrator Relationship Specialty Start Date End Date Ronnell Glass MD [address] [place] [address] PCP - General 09/29/20
--- OUTSIDE RECORDS SUMMARY | 2024-10-22 15:28 | XMS_ITS | Continuity of Care Document ---
Author Name [facility] Organization 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 Unavailable Unavailable Immunizations Combined list of available immunizations from the Department of Defense and Veterans Affairs facilities. Immunization Series Date Given Administered By Site Reaction Lot Number CVX Code Drug Pasting Inspector Status Comments Source INFLUENZA, SEASONAL, INJECTABLE 2017 [...] complet ed [facility] INFLUENZA, UNSPECIFIED FORMULATION 1996 Reynaldo BECK 88 complet ed [facility]
--- OUTSIDE RECORDS SUMMARY | 2024-10-22 15:28 | XMS_ITS | Continuity of Care Document ---
Author Organization [facility] Address [address] [place] [address] Phone Care Team Providers Care Supervisor Data Processing Name Role Phone Unavailable Unavailable Unavailable Advance Directives Directive Yes / No Effective Date File Name No Information Encounters Encounter Description Practice Location Reason(s) For Visit Diagnoses Date Provider Providers Copied on Encounter [facility], [address], [place], [place], [id number], [place] tel:[phone] Imported From Previous EHR No Information No Information Family History Family Member Type Diagnosis Age At Onset No Information Payers Payer name Insurance type Covered libertarian ID Authoriza tion(s) No Information Social History [...]
--- OUTSIDE RECORDS SUMMARY | 2024-10-22 15:28 | XMS_ITS | Continuity of Care Document ---
Author Organization [facility] Address [address] [place] [address] Phone Care Team Providers Care Office Professional Name Role Phone [facility] Unavailable Unavailable Allergies, Adverse Reactions, Alerts [...] Active Procedures Procedure Date CONTACT LENS FITTING [facility] Tech 0 EYE EXAM & TREATMENT REFRACTION EYE EXAM & TREATMENT REFRACTION CTL Tech CONTACT LENS FITTING [facility] Tech 9 OFFICE/OUTPATIENT VISIT, EST OFFICE/OUTPATIENT VISIT, EST REFRACTION CTL Tech CONTACT LENS FITTING CTL Tech 8 EYE EXAM & TREATMENT EYE EXAM & TREATMENT CONTACT LENS FITTING CTL Tech 7 REFRACTION CTL Tech EYE EXAM & TREATMENT CONTACT LENS FITTING CTL Tech 6 REFRACTION [facility] Tech EYE EXAM [facility] OFFICE/OUTPATIENT VISIT, NEW Advance Directives Directive Yes / No Effective Date File Name No Information Encounters Encounter Description Practice Location Reason(s) For Visit Diagnoses Date Provider Providers Copied on Encounter [facility] [place], [place], [id number], tel:[phone] [facility] No Information [facility] . [address] [place] [address], [id number]. tel:[phone] Referring Provider: Radha Stewart [facility] [address], [place], [address]. tel:[phone] [facility] [address] [place] [address], [id number], [place] tel:[phone] [facility] Contact lens evaluation (chief complaint) No Information 0 Mariel Garcia [facility] [address], [place], [address], [place]. tel:[phone] Referring Provider: Radha Stewart [address], [place], [address]. tel:[phone] [facility] [place], [place], [id number], [place] tel:[phone] [facility] routine exam (chief complaint) PresbyopiaNu clear Sclerosis OUCentral corneal ulcer, right eye 0 Mariel tabares [address] [facility] [address], [place], [address], [place]. tel:[phone] Referring Provider: Radha Stewart [address], [place], [address]. tel:[phone] [facility] [place], [place], [id number], [place] tel:[phone] [facility] comprehensiv e exam (chief complaint) PresbyopiaNu clear Sclerosis OUCentral corneal ulcer, right eye [address] [place] [address] , [place], [address], [place]. tel:[phone] Referring Provider: [facility] Floyd [facility] , [place], [address]. tel:[phone] OFFICE/OUTPA TIENT VISIT, EST [facility] [address] [place] [address], [id number], [place] tel:[phone] [place] 3 day recheck Corneal Ulcer (chief complaint) Central corneal ulcer, right eye 8 Faustino Del Angel. [address] [place] [address], [id number], [place]. tel:[phone] Referring Provider: Pranay Floyd [facility] , [place], [address]. tel:[phone] OFFICE/OUTPA TIENT VISIT, EST [facility] [address] [place] [address], [id number], [place] tel:[phone] [facility] FBS (chief complaint) Central corneal ulcer, right eye 8 Faustino Del Angel. [address] [place] [address], [id number], [place]. tel:[phone] Referring Provider: Pranay Floyd [facility] , [place], [address]. tel:[phone] [facility] [address] [place] [address], [id number], [place] tel:[phone] [facility] No Information 8 Mariel tabares [facility] , [place], [address], [place]. tel:[phone] Referring Provider: Radha Stewart [facility] [address], [place], [address]. tel:[phone] [facility] [address] [place] [address], [id number], [place] tel:[phone] [facility] comprehensiv e exam (chief complaint) Nuclear Sclerosis OUPresbyopia 8 Mariel tabares [facility] [address], [place], [address], [place]. tel:[phone] Referring Provider: Radha Stewart [address], [place], [address]. tel:[phone] [facility] [address] [place] [address], [id number], [place] tel:[phone] [facility] comprehensiv e exam (chief complaint) Age-related nuclear cataract, bilateralPre sbyopia 7 Mariel tabares [facility] [address], [place], [address], [place]. tel:[phone] Referring Provider: Radha Stewart [address], [place], [address]. tel:[phone] [facility] [address] [place] [address], [id number], [place] tel:[phone] [facility] comprehensiv e exam (chief complaint) Age-related nuclear cataract, bilateralPre sbyopia 0 6 Mariel Garcia [facility] [address], [place], [address], [place]. tel:[phone] Referring Provider: Radha Stewart [address], [place], [address]. tel:[phone] [facility] [address] [place] [address], [id number], tel:[phone] [facility] metal FB (chief complaint) Foreign body in post wall of eye 5 Bubba Vela. [address] [facility] , [place], [place], [id number], . tel:[phone] Referring Provider: Pranay Floyd [address] [place] [address] , [place], [address]. tel:[phone] OFFICE/OUTPA TIENT VISIT, [facility] [address] [facility] [facility], [place], [place], [id number], tel:[phone] [facility] metal in eye (chief complaint) Foreign body in post wall of eye [address] [place] [address] , [place], [address], [place]. tel:[phone] Referring Provider: Pranay Floyd [address] [place] [address] , [place], [address]. tel:[phone] Family History Family Member Type Diagnosis Age At Onset Mother Problem (finding) Heart disease Payers Payer name Insurance type Covered democrat ID Authortanga reji(s) [facility] [id number] Social History Type Description Quantity Date Captured [...] right eye Impression/Plan Related to Presb yopia As scheduled [...] david to Nuclear Sclerosis OU Impression/Plan - Ne w glasses rx given to patient today to help with blurred DVA and trouble reading. Call if VA changes.CTL Rx issued today - pt to f/u w/ Lesley PRN. Related to Presbyopia Follow up - 1 year f ull CTL exam w/ CC. Related to Nuclear Sclerosis OU Impression/Plan - No n-surgical at this time. Natural progression of cataracts discussed with patient. Patient indicates understanding that new specs may not improve VA as cataracts mature. Will continue to monitor. Related to Nuclear Sclerosis OU RTC 1yr DFE/ CTL wero l w. CC and Lesley Related to Presbyopia Impression/Plan - No n-surgical at this time. Natural progression of cataracts discussed with patient. Patient indicates understanding that new specs may not improve VA as cataracts mature. Will continue to monitor. Related to Age-related nuclear cataract, bilateral Follow up - RTC 1yr DFE/ CTL eval w. CC and Lesley Related to Presbyopia Impression/Plan - Ne w glasses and CTL rx given to patient today to help with blurred DVA and trouble reading. Call if VA changes. Related to Presbyopia RTC 1yr for COLEMAN w/ Dr. Floyd Related to Presbyopia RTC 1yr for DFBianca w/ Dr. Floyd Related to Age-related nuclear cataract, bilateral Follow up - RTC 1yr for DFBianca w/ Dr. Floyd Related to Age-related nuclear cataract, bilateral Impression/Plan - No n-surgical at this time. Natural progression of cataracts discussed with patient. Patient indicates understanding that new specs may not improve VA as cataracts mature. Will continue to monitor. Related to Age-related nuclear cataract, bilateral Follow up - RTC 1yr for DFBianca w/ Dr. Floyd Related to Presbyopia Impression/Plan - Ne w glasses rx given to patient today to help with blurred DVA and trouble reading. Call if VA changes. Related to Presbyopia PRN, bring images Related to For eign body in post wall of eye Follow [...]
--- OUTSIDE RECORDS SUMMARY | 2024-10-22 15:29 | XMS_ITS | Continuity of Care Document ---
Author Organization [facility] Address [address] [place] [address] [place] [address] Phone Care Team Providers Care Set Key Driver Name Role Phone Jazzy Diaz MD Unavailable [...] X-ray Knee Complete Standing (4 Views)(A P,Tunnel,Lateral, Dooms) DepoMedrol 80mg Inj/Asp. Large jt. bursa (shoulder, [...] Diagnoses Date Provider Providers Copied on Encounter [address] , [place], [place], [id number], [place] tel:[phone] No Information 3 Joe Purcell. [address] [facility], [place], [place], [address], [place]. tel:[phone] Office/Establ ished Level [address] , [place], [place], [address], [place] tel:[phone] Pulmonary Lung cancer (chief complaint)Sh ortness of breath (chief complaint) Non-small cell cancer of left lungShortnes s of breathTobacc o abuseBody mass index (BMI) 29.0-29.9, adult Dec-2 1 Juanjose Jara. [address] [place] [address], [address], [place]. tel:[phone] Primary Practice Provider: Job Ann, [address] [facility], [place], [address]. tel:[phone] Provider: Estefani Moulton, [address] [place] [address], [address]. tel:[phone] , [place], [place], [address], [place] tel:[phone] Family Medicine At [facility] No Information 1 Seth Kaiser. [address], [place], [place], [id number], [place]. tel:[phone] Office/Establ ished Level [address] , [place], [place], [address], [place] tel:[phone] Pulmonary HFU (chief complaint)CO PD (follow up) (chief complaint)Veronica ng Cancer (chief complaint) Non-small cell cancer of left lungAbnormal findings on diagnostic imaging of lungTobacco abuseBody mass index (BMI) 28.0-28.9, adult Feb- 1 Juanjose Jara. [address] [place] [address], [address], [place]. tel:[phone] Primary Practice Provider: Job Ann, [address], [place], [address]. tel:[phone] ring Provider: Estefani Moulton, [address] [place] [address], [place], [address]. tel:[phone] , [place], [place], [address], [place] tel:[phone] Scan At [facility] No Information 1 Juanjose Jara. [address] [place] [address], [address], [place]. tel:[phone] Referring Provider: Estefani Moulton, [address] [place] [address], [address]. tel:[phone] , [place], [place], [address], [place] tel:[phone] Internal Medicine At [facility] No Information 1 Maddy Tee. [address] [place] [address] , [place], [place], [id number], [place]. tel:[phone] , [place], [place], [address], [place] tel:[phone] Pulmonary Shortness of breath 1 Juanjose Jara. [address] [place] [address], [address], [place]. tel:[phone] SUBSEQUENT HOSPITAL CARE [address] [place], [place], [address], [place] tel: [phone] [facility] IP No Information 0 Jeff Dennison. [address] [place] [address], [address], [place]. tel:[phone] Referring Provider: Juma Aguilar, [address] [place] [address], [address]. tel: [phone] Initial Hospital Care [address] , [place], [place], [address], [place] tel: [phone] [facility] IP No Information 0 Jori Bond. [address] [place] [address], [address], [place]. tel:[phone] Referring Provider: Varun Hsieh, [address] [place] [address], [address]. tel: [phone] [facility] [address] , [place], [place], [address], [place] tel: [phone] [facility] IP No Information 0 Antonio Mota. [address] [place] [address], [address], [place]. tel:[phone] Referring Provider: Nakul Alvarez, [address] [place] [address], [address]. tel: [phone] INPATIENT CONSULTATION [address] , [place], [place], [address], [place] tel: [phone] [facility] IP No Information 0 Jeff Dennison. [address] [place] [address], [address], [place]. tel:[phone] Referring Provider: Juma Aguilar, [address] [place] [address], [address]. tel: [phone] [address] , [place], [place], [address], [place] tel: [phone] [facility] IP No Information 0 Valarie Garrison. [address] [place] [address], [address], [place]. tel:[phone] Referring Provider: Bladimir Sheppard [address] [place] [address], [address]. tel:[phone] SUB[facility]ARE [address] [place], [address], tel: [phone] [facility] IP No Information Dec-2 0 Antonio Mota. [address] [place] [address], [address], [place]. tel:[phone] Referring Provider: Nakul Alvarez, [address] [place] [address], [address]. tel: [phone] Office/Establ ished Level [address] [place], [place], [address], [place] tel: [phone] Cardiology At [facility] Coronary artery disease (chief complaint)hy pertension (chief complaint)hy perlipidemia (chief complaint)to bacco use (chief complaint) Mixed hyperlipidem iaEssential (primary) hypertension Atherosclero tic heart disease of tolowa dee-ni' coronary artery without angina pectorisToba account group supervisor abuseBody mass index (BMI) 28.0-28.9, adult Dec-0 0 Misbah Jordan. [address] [place] [address] [place], [address], [place]. tel:[phone] Referring Provider: Job Ann, [address] , [place], [address]. tel:[phone] Office/Establ ished Level [address] [place], [address], [place] tel:[phone] Pulmonary lung cancer (chief complaint) Non-small cell cancer of left lungShortnes s of breathBody mass index (BMI) 28.0-28.9, adult Dec-0 0 Juanjose Jara. [address] [place] [address], [address], [place]. tel:[phone] Primary Practice Provider: Job Ann, [address] , [place], [address]. tel:[phone] ring Provider: Estefani Moulton, [address] [place] [address], [address]. tel:[phone] , [place], [place], [address], [place] tel:[phone] MRI At 1202 Non-small cell cancer of left lung Sep-0 0 Juanjose Jara. [address] [place] [address], [address], [place]. tel:[phone] , [place], [place], [address], [place] tel:[phone] X Ray At 1202 No Information Sep-0 0 Juanjose Jara. [address] [place] [address], [address], [place]. tel:[phone] Referring Provider: Estefani Moulton, [address] [place] [address], [address]. tel:[phone] , [place], [place], [address], [place] tel:[phone] Pulmonary No Information Sep-0 0 Juanjose Jara. [address] [place] [address], [facility], [place]. tel:[phone] Referring Provider: Job Ann, [address], [place], [address]. tel:[phone] Office/Establ ished Level [address] , [place], [place], [address], [place] tel:[phone] Clinic Virtual fu after pet (chief complaint) Non-small cell cancer of left lungBody mass index (BMI) 28.0-28.9, adult Aug-2 0 Juanjose Jara. [address] [place] [address], [address], [place]. tel:[phone] Primary Practice Provider: Job Ann [address], [place], [address]. tel:[phone] ring Provider: Job Ann, [address], [place], [address]. tel:[phone] [address] , [place], [place], [address], [place] tel: [phone] [facility] OP No Information 0 Elieser Villegas. [address] [place] [address] , [place], [place], [address], [place]. tel:[phone] Referring Provider: Bakari Mon, [address] [place] [address] , [place], [address]. tel: [phone] [address] , [place], [place], [address], [place] tel: [phone] Pulmonary Hilar mass 0 Juanjose Jara. [address] [place] [address], [facility], . tel:[phone] Office Consult Level [address] , [place], [place], [address], [place] tel: [phone] Pulmonary hilar mass (chief complaint)Vo heidi Cord dysfunction (chief complaint) Hilar massSolitary pulmonary noduleParaly sis of vocal cords and larynx, unilateralBo dy mass index (BMI) 30.0-30.9, adult Apr-0 0 Juanjose Jara. [address] [place] [address], [facility], [place]. tel:[phone] Primary Practice Provider: Job Ann, [address], [place], [address]. tel: [phone] ring Provider: Job Ann, [address], [place], [address]. tel:[phone] [address] , [place], [place], [address], [place] tel: [phone] Pulmonary Hilar mass 0 Juanjose Medina [address] [place] [address], [facility], [place]. tel:[phone] Referring Provider: Estefani Moulton, [address], [place], [address]. tel:[phone] Office/Establ ished Level [address] [place], [address], [place] tel:[phone] Family Medicine At [facility] Follow Up of Hyperlipidem ia (chief complaint)Fo llow Up of Hypertension (chief complaint)Hy pogonadism (chief complaint)Vyas nd arthritis (chief complaint) Mixed hyperlipidem iaHilar massEssentia l (primary) hypertension Hypogonadism in maleLong term use of drugBody mass index (BMI) 29.0-29.9, adult 0 Seth Kaiser. [address] , [place], [place], [address], [place]. tel:[phone] Referring Provider: Job Ann, [address] [facility], [place], [address]. tel:[phone] , [place], [place], [address], [place] tel:[phone] [facility] No Information 0 Seth Kaiser. [address] [place], [address], [place]. tel:[phone] [place], [address], [place] tel:[phone] Lab At [facility] Testicular hypofunction Other intermediate frame tender (current) drug therapyMixed hyperlipidem ia 0 Seth Kaiser. [address] [place], [place], [address], [place]. tel:[phone] Referring Provider: Job Ann, [address] , [place], [address]. tel:[phone] [place], [address], [place] tel:[phone] Family Medicine At [facility] 0 Seth Kaiser. [address], [place], [place], [address], [place]. tel:[phone] , [place], [address], [place] tel: [phone] Family Medicine At [facility] 0 Seth Kaiser. [address], [place], [place], [address], [place]. tel:[phone] , [place], [place], [address], [place] tel: [phone] CT Scan At [facility] Essential (primary) hypertension 0 Barrett Blanco. [address] [place] [address], [id number], [place]. tel:[phone] Referring Provider: Job Ann, [address] , [place], [address]. tel:[phone] Office Consult Level [address] [place], [place], [address], [place] tel:[phone] [facility] [place] [address] hoarseness (chief complaint) DysphoniaPar alysis of vocal cords and larynx, unilateralBo dy mass index (BMI) 30.0-30.9, adult 0 Barrett Blanco. [address] [place] [address], [id number], [place]. tel:[phone] Referring Provider: Job Ann, [address], [place], [address]. tel:[phone] [place], [address], [place] tel:[phone] Family Medicine At [facility] Change in voice 0 Seth Kaiser. [address], [place], [place], [address], [place]. tel:[phone] Office/Establ ished Level [address] [place], [address], [place] tel:[phone] Clinic Virtual voice loss (chief complaint) Laryngitis 0 Jalyn Paz. [address] [place], [address], [place]. tel:[phone] Referring Provider: Brandi Gunderson, [address] [place], [address]. tel:[phone] , [place], [place], [address], [place] tel:[phone] Special Testing At 1202 No Information 0 Misbah Jordan. [address] [place] [address] [place], [address], [place]. tel:[phone] Referring Provider: Julian Crawley, [address] [place] [address] [place], [address]. tel:[phone] [place], [address], [place] tel:[phone] X Ray At 1202 No Information 0 Misbah Jordan. [address] [place] [address] [place], [address], [place]. tel:[phone] Referring Provider: Julian Crawley, [address] [place] [address] [place], [address]. tel:[phone] Office/New Level [address] [place], [address], [place] tel:[phone] Cardiology At 1202 Coronary artery disease (chief complaint)hy pertension (chief complaint)hy perlipidemia (chief complaint)to bacco use (chief complaint) Mixed hyperlipidem iaEssential (primary) hypertension Atherosclero tic heart disease of tolowa dee-ni' coronary artery without angina pectorisToba account group supervisor abuseCoughBo dy mass index (BMI) 31.0-31.9, adult 0 Misbah Jordan. [address] [place] [address] [place], [address], [place]. tel:[phone] Referring Provider: Job Ann, [address], [place], [address]. tel: [phone] [address] [place], [address], [place] tel: [phone] Lab At [facility] Mixed hyperlipidem ia 0 Seth Kaiser. [address] , [place], [place], [address], [place]. tel:[phone] Referring Provider: Job Ann, [address], [place], [address]. tel: [phone] Office/Establ ished Level [address] , [place], [place], [address], [place] tel: [phone] Family Medicine At [facility] Discuss Heart Score (chief complaint)hy perlipidemia (chief complaint) Elevated coronary artery calcium scoreMixed hyperlipidem iaBody mass index (BMI) 31.0-31.9, adult Nov- 0 Seth Kaiser. [address] , [place], [place], [address], [place]. tel:[phone] Referring Provider: Job Ann, [address] , [place], [address]. tel: [phone] [address] [place], [address], [place] tel: [phone] [facility] [place] No Information 0 Ry Tee. [address] [place] [address], [address], [place]. tel:[phone] Referring Provider: Randal Raza, [address] [place] [address], [address]. tel: [phone] Preventative Established 40-64 yrs [address] [place], [address], [place] tel: [phone] Family Medicine [facility] Preventive exam (chief complaint) Body mass index (BMI) 32.0-32.9, adultEssenti al (primary) hypertension Tobacco abuseMixed hyperlipidem iaBarrett's esophagus without dysplasiaHyp ogonadism in maleLong term use of drug 0 Seth Kaiser. [address], [place], [place], [address], [place]. tel:[phone] Referring Provider: Jazzy Diaz, [address], [place], [address]. tel:[phone] , [place], [place], [address], [place] tel:[phone] Lab At [facility] Mixed hyperlipidem iaTesticular hypofunction Encounter for screening for malignant neoplasm of prostate 0- 0 Seth Kaiser. [address], [place], [place], [address], [place]. tel:[phone] Referring Provider: Gricelda Warner, [address] [facility] [address], [place], [address]. tel:[phone] Office/Establ ished Level [address] [place], [address], [place] tel:[phone] Orthopedics At [facility] Knee Pain (chief complaint) Osteoarthrit is of right knee, unspecified osteoarthrit is typeBody mass index (BMI) 32.0-32.9, adult Mar--201 9 Antonio tabares [address] [place] [address] [place], [address], [place]. tel:[phone] Referring Provider: Pranay Alvarez, [address] [place] [address] [place], [address]. tel:[phone] Office/Establ ished Level [address] [place], [address], [place] tel:[phone] Family Medicine At [facility] Follow Up of Hyperlipidem ia (chief complaint)Fo llow Up of Hypertension (chief complaint)GE RD (chief complaint) Hypogonadism in maleLong term use of drugEssentia l (primary) hypertension Mixed hyperlipidem iaBarrett's esophagus without dysplasiaTob acco abuseBody mass index (BMI) 32.0-32.9, [facility] er for screening for malignant neoplasm of prostate Feb- 9 Sandeepmarbella Job. [address] , [place], [place], [address], [place]. tel:[phone] Referring Provider: Gricelda Warner, [address] [facility] [place] [address], [place], [address]. tel:[phone] [place], [address], [place] tel: [phone] Lab At [facility] Testicular hypofunction Essential (primary) hypertension Feb- 9 Seth Kaiser. [address] , [place], [place], [address], [place]. tel:[phone] Referring Provider: Jazzy Diaz, [address] [facility], [place], [address]. tel:[phone] [address] [place], [address], [place] tel: [phone] [facility] Internal Medicine At [facility] Essential (primary) hypertension Hypogonadism in maleMixed hyperlipidem ia 9 Timmy Madison. [address] [facility] Alexia, [address], [place], [place], [address], [place]. tel:[phone] Office/Establ ished Level [address] [place], [place], [address], [place] tel:[phone] Orthopedics At [place] 8114 Knee Pain (chief complaint) Osteoarthrit is of right knee, unspecified osteoarthrit is typeBody mass index (BMI) 31.0-31.9, adult Apr-0 9 Antonio tabares [address] [place] [address] [place], [address], [place]. tel:[phone] Referring Provider: Pranay Alvarez, [address] [place] [address] [place], [address]. tel:[phone] Office Consult Level [address] [place], [address], [place] tel:[phone] Orthopedics At [facility] Knee Pain (chief complaint) Body mass index (BMI) 31.0-31.9, adultOsteoar thritis of right knee, unspecified osteoarthrit is typePain in right knee Nov- 9 Antonio tabares [address] [place] [address] [place], [address], [place]. tel:[phone] Referring Provider: Gricelda Warner, [facility] [facility] [address], [place], [address]. tel:[phone] [place], [address], [place] tel:[phone] X Ray At [facility] No Information Nov- 9 Antonio tabares [address] [place] [address] [place], [address], [place]. tel:[phone] Referring Provider: Pranay Alvarez [address] [place] [address] [place], [address]. tel:[phone] [place], [address], [place] tel:[phone] Family Medicine At [facility] Pain in right kneeOsteoart hritis of right knee, unspecified osteoarthrit is type Mar-0 9 Timmy Madison. [address], [address], [place], [place], [address], [place]. tel:[phone] Office/Establ ished Level [address] [place], [address], [place] tel:[phone] Family Medicine At [facility] Joint pain (chief complaint) Body mass index (BMI) 31.0-31.9, adultChronic pain of right kneeOther chronic painOsteoart hritis of right knee, unspecified osteoarthrit is type 9 Timmy Madison. [address] [facility] Alexia, [address], [place], [place], [address], [place]. tel:[phone] Referring Provider: Gricelda Warner, [address], [place], [address]. tel: [phone] Office/Establ ished Level [address] [place], [address], [place] tel: [phone] Gastroenter ology At 1202 10-14 day follow up after procedure (chief complaint) Body mass index (BMI) 31.0-31.9, adultBarrett 's esophagus without dysplasia 9 Maddy Tee. [address] [place] [address] [place], [address], [place]. tel:[phone] Referring Provider: Jazzy Diaz, [address] [facility], [place], [address]. tel: [phone] [address] [place], [address], [place] tel: [phone] Gastroenter ology At 1202 No Information 8 Maddy Tee. [address] [place] [address] [place], [address], [place]. tel:[phone] Referring Provider: Randal Castañeda, [address] [place] [address] [place], [address]. tel: [phone] Office Consult Level [address] [place], [address], [place] tel: [phone] Gastroenter ology At 1202 Dysphagia (chief complaint) Body mass index (BMI) 30.0-30.9, adultHeartbu rnDysphagia, unspecified 8 Maddy Tee. [address] [place] [address] [place], [address], [place]. tel:[phone] Referring Provider: Gricelda Warner, [address], [place], [address]. tel:[phone] Preventative Established 40-64 yrs [address] [place], [address], tel:[phone] Family Medicine [facility] Preventive exam (chief complaint) Encntr for general adult medical exam w/o abnormal findingsEsse ntial (primary) hypertension Hypogonadism in malePersonal history of nicotine dependenceGa stroesophage al reflux disease without esophagitisB dalton mass index (BMI) 31.0-31.9, adultMixed hyperlipidem iaRefused diphtheria-t etanus vaccinePhary ngoesophagea l dysphagia 8 Timmy Madison. [address], [address], [place], [place], [address], [place]. tel:[phone] Referring Provider: Joey Mckeon [address], [place], [address]. tel:[phone] [place], [place], [address], [place] tel:[phone] Lab [facility] Essential (primary) hypertension Testicular hypofunction 8 Timmy Madison. [address], [facility] [place], [place], [address], [place]. tel:[phone] Referring Provider: Joey Mckeon [address] [place], [address]. tel:[phone] Office/Establ ished Level [address] [place], [address], [place] tel:[phone] Family Medicine [facility] Chronic conditions (chief complaint) Essential (primary) hypertension Hypogonadism in malePersonal history of nicotine dependenceGa stroesophage al reflux disease without esophagitis 8 Timmy Madison. [address], [address], [place], [place], [address], [place]. tel:[phone] Referring Provider: Jazzy Diaz [address], [place], [address]. tel: [phone] [address] [place], [address], [place] tel: [phone] Family Medicine At [facility] Testicular hypofunction Essential (primary) hypertension 8 Joe Jazzy. [address], [place], [place], [address], [place]. tel:[phone] Referring Provider: Jazzy Diaz [address], [place], [address]. tel: [phone] Preventative Established 40-64 yrs [address] [place], [address], [place] tel: [phone] Family [facility] Preventive exam (chief complaint) Encntr for general adult medical exam w/o abnormal findingsEsse ntial (primary) hypertension Testicular hypofunction Gastroesopha geal reflux disease without esophagitisP ersonal history of nicotine dependenceBo dy mass index (BMI) 31.0-31.9, adult Nov- 7 Joe Jazzy. [address], [place], [place], [address], [place]. tel:[phone] Referring Provider: Jazzy Diaz [address], [place], [address]. tel: [phone] [address] [place], [place], [address], [place] tel: [phone] [facility] Testicular hypofunction Essential (primary) hypertension 7 Joe Jazzy. [address], [place], [place], [address], [place]. tel:[phone] Referring Provider: Jazzy Diaz [address], [place], [address]. tel: [phone] [address] [place], [address], [place] tel: [phone] Surgery At 1202 post OP (chief complaint) Postoperativ e visit Anamaria Peterson. [address] [place] [address], [address], . tel:[phone] Referring Provider: Kristen Conrad, [address] [place] [address], [address]. [phone] , [place], [place], [address], [place] tel:[phone] Surgery At 1202 post OP (chief complaint) Body mass index (BMI) 30.0-30.9, adultPostope rative visit Anamaria Peterson. [address] [place] [address], [address], [place]. tel:[phone] Referring Provider: Kristen Conrad, [address] [place] [address], [address]. tel:[phone] , [place], [place], [address], [place] tel:[phone] Surgery At 1202 Sebaceous cyst (chief complaint) Epidermoid cyst Anamaria Peterson. [address] [place] [address], [address], [place]. tel:[phone] Referring Provider: Jazzy Diaz, [address], [place], [address]. tel:[phone] Office/Establ ished Level [address] , [place], [place], [id number], [place] tel:[phone] [facility] hypertension (chief complaint)hy perlipidemia (chief complaint)Hy pogonadism (chief complaint)GE RD (chief complaint)sm oking (chief complaint) Essential (primary) hypertension Hypogonadism in maleGastroes ophageal reflux disease without esophagitisS moking 7 Joe Purcell. [address], [place], [place], [id number], [place]. tel:[phone] Referring Provider: Jazzy Diaz [address], [place], [address]. tel:[phone] [place], [place], [id number], tel:[phone] [facility] Encntr for general adult medical exam w/o abnormal findings Dec- Joe Purcell. [address], [place], [place], [id number], [place]. tel:[phone] Referring Provider: Jazzy Diaz, [address], [place], [address]. tel:[phone] , [place], [place], [id number], [place] tel:[phone] Family [facility] Encntr for general adult medical exam w/o abnormal findings Dec- Joe Purcell. [address], [place], [place], [id number], [place]. tel:[phone] Referring Provider: Jazzy Diaz [address], [place], [address]. tel:[phone] [place], [place], [id number], [place] tel:[phone] [facility] Skin lesion (chief complaint) Epidermoid cyst Dec- Joe Purcell. [address], [place], [place], [id number], [place]. tel:[phone] Referring Provider: Jazzy Diaz [address], [place], [address]. tel:[phone] Office/Establ ished Level [address] [place], [id number], [place] tel:[phone] Family [facility] Skin lesion (chief complaint) Abscess Dec- 7 Joe Purcell. [address], [place], [place], [id number], [place]. tel:[phone] Referring Provider: Jazzy Diaz [address], [place], [address]. tel:[phone] Office/Establ ished Level [address] , [place], [place], [address], [place] tel:[phone] [facility] Sinus symptoms (acute) (FP) (chief complaint) Acute non-recurren t maxillary sinusitis 6 Joe Purcell. [address], [place], [place], [address], [place]. tel:[phone] Referring Provider: Jazzy Diaz, [address], [place], [address]. tel:[phone] , [place], [place], [id number], [place] tel:[phone] [facility] Encntr for general adult medical exam w/o abnormal findings 6 Joe Purcell. [address], [place], [address], [place]. tel:[phone] Referring Provider: Jazzy Diaz [address], [place], [address]. tel:[phone] , [place], [place], [id number], [place] tel:[phone] X Ray At 1202 No Information 6 Armando Aguilar. [address] [place] [address], [address], [place]. tel:[phone] Referring Provider: Lauren Roberts, [address] [place] [address], [address]. tel:[phone] Office/Establ ished Level [address] [place], [id number], [place] tel:[phone] [facility] 1202 Knee Pain (chief complaint) Primary osteoarthrit is of right knee 6 Armando Aguilar. [address] [place] [address], [address], [place]. tel:[phone] Referring Provider: Jazzy Diaz [address], [place], [address]. tel:[phone] Preventative Established 40-[address] yrs [address] [place], [id number], [place] tel:[phone] Family [facility] Preventive exam (chief complaint) Encntr for general adult medical exam w/o abnormal findingsEsse ntial (primary) hypertension Body mass index (BMI) 29.0-29.9, adultSmoking Pain in right kneeOther chronic painHypogona dism in male Jun- 6 Joe Purcell. [address], [place], [address], [place]. tel:[phone] Referring Provider: Jazzy Diaz [address], [place], [address]. tel:[phone] [place], [address], [place] tel:[phone] [facility] Testicular hypofunction Jun- 6 Joe Purcell. [address], [place], [place], [address], [place]. tel:[phone] Referring Provider: Jazyz Diaz [address], [place], [address]. tel:[phone] [place], [id number], [place] tel:[phone] Family [facility] hypertension (chief complaint)hy perlipidemia (chief complaint)Hy pogonadism (chief complaint) Essential (primary) hypertension Hypogonadism in male Apr-0 8 6 Joe Purcell. [address], [place], [place], [address], [place]. tel:[phone] Referring Provider: Jazzy Diaz [address], [place], [address]. tel:[phone] [place], [address], [place] tel: [phone] [facility] Testicular hypofunction Encntr for general adult medical exam w/o abnormal findings 6 Joe Purcell. [address], [place], [address], [place]. tel:[phone] Referring Provider: Jazzy Diaz, [address], [place], [address]. tel: [phone] [address] , [place], [place], [id number], [place] tel: [phone] [facility] [place] right ear cyst (chief complaint) Cyst on ear 5 Barrett Blanco. [address] [place] [address], [place], [place], [id number], [place]. tel:[phone] Referring Provider: Jazzy Diaz, [address] [facility], [place], [address]. tel: [phone] [address] , [place], [place], [address], [place] tel: [phone] [facility]logy At [facility] Follow Up of procedure (chief complaint) Benign neoplasm of ascending colon 5 Maddy Tee. [address] [place] [address] , [place], [place], [id number], [place]. tel:[phone] Referring Provider: Randal Castañeda, [address] [place] [address] , [place], [address]. tel: [phone] [address] , [place], [place], [address], [place] tel: [phone] [facility] Ear discomfort (chief complaint) Swelling of right earBilateral impacted cerumen 5 Joe Purcell. [address] , [place], [place], [address], [place]. tel:[phone] Referring Provider: Jazzy Diaz, [address], [place], [address]. tel: [phone] [address] [place], [address], [place] tel:[phone] [facility] Preventive exam (chief complaint) No Information 5 Joe Purcell. [address] , [place], [place], [address], . tel:[phone] Referring Provider: Jazzy Diaz, [address] , [place], [address]. tel:[phone] , [place], [place], [address], tel:[phone] [facility] Preventive exam (IM) (chief complaint)Hy pogonadism (chief complaint) No Information Humphrey Webb. [address] [place], [place], [facility], . Referring Provider: Job Ann, [address] , [place], [address]. tel:[phone] Family History Family Member Type Diagnosis Age [...] virus 3 years or older, Fluarix Quad [id number] refused Source: Ne w Immunization Record Influenza, injectable, quadrivalent, preservative free, 3 yrs or older administered Source: Other [place] try Payers Payer name Insurance type Covered green party ID Authortanga tirichard(s) BC[employer] [place] [id number] BCBS [facility] - [place]BS[place] [id number] Social History Type Description Quantity Date Captured [...] Referral Referred To: Francis Morejon MD [address] [place], [place], [phone] Ordered: Referrals: Referrals: Referrals: Oncology. Francis Morejon MD. Consult ordered Referral Ordered: Referrals: Referrals: Pulmonology. Consult ordered Referral Ordered: Referrals: Referrals: Otolaryngology. Consult ordered Referral Referred To: Randal Raza MD [facility] [place], [phone] Ordered: Referrals: Cardiology. Randal Raza MD. Consult ordered Referral Ordered: Ren Canela M.D. (related to Osteoarthritis of right knee, unspecified osteoarthritis type) ordered Referral Referred To: Ren Canela M.D. Ordered: Referrals: Alternative Medicine. Ren Canela M.D.. Location: [facility]. Consult ordered Referral Ordered: Referrals: Orthopedic [...] Radiol ogy Order CT CHEST WO CONTRAST ([id number]), Collected on: , Sent on: Sent Future Order: Radiol ogy Order XR SCREENING OF EYE FOR DETECTION OF FOREIGN BODY ([id number]), Sent on: Sent Future Order: Lab Order IStommyt Janes adames ([id number]), Ordered on: Ordered Future Order: Radiol ogy Order Echo 2D Color Doppler (TTE W/ Doppler, Complete) ([id number]), Collected on: , Sent on: Sent History [...] loss. Additional information: managed by Dr. Vanegas COPD (follow up) The COPD (follo w [...] has agreed to proceed with the visit. HFU was admitted to [facility] with infected port and pneumonia Lung Cancer He is also exper iencing cough, dyspnea and fatigue. Pertinent negatives include abdominal pain, bleeding, chest pain, chills, dizziness, dysuria, fever, headache, hives, insomnia, nausea, night sweats, rash, vomiting and weight loss. Additional information: managed by [facility] oncology Dr. Vanegas tobacco use (comments) reduced n ow; cough and smoking prompted an echocardiogram and a CXR which were ok and cough continued and a CT showed a hilar mass found to be NSCLC with possible spinal metastatic disease on PET and s/p radiation and followed by Pulmonary and Oncology and palliative care. Coronary artery disease hypertension hyperlipidemia Coronary artery disease tobacco use hyperlipidemia (comments) chroni c, stable hypertension (comments) [...] information: LDL is OK at this time. Hand arthritis The symptoms are reported as being moderate. 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 Follow Up of Hypertension It is currently stable. Risk factors include heavy ETOH consumption, male gender and smoking. Pertinent negatives include chest pain and fatigue. Additional information: BP is Controlled. Hypogonadism The symptoms are reported as being moderate. Teststerone is good at 1200 states he just got the shot prior to the last labs hoarseness (comments) 2-month hi story of hoarseness. [...] c, stable tobacco use (comments) chronic, stable hypertension Coronary artery disease hyperlipidemia Coronary artery disease tobacco use Discuss Heart Score Calcium leve l's OK [...] =due this yearImmunizations = needs flu shot Preventive exam (IM) (comments) just ran out of testosterone. I'm on injections for that. doctor in [facility] had me on q2 wks and doctor here had me on q5d Preventive exam (IM) Men's preve ntive visit. Hypogonadism The symptoms hav e been mild and are resolved. The patient is here today for a follow up visit. He denies depression. Functional Status Date Functional Assessmen t No Information Instructions Date Instruction Additional Infor mation Reviewed pertinent i nformation about medical condition [...]
== END 2024-10-22 14:41 | disposition home or self-care (01) ==
PROVIDERS: PCP Internal Medicine
DX: I12.9 Hypertensive chronic kidney disease with stage 1 through stage 4 chronic kidney disease, or unspecified chronic kidney disease (principal); N18.32 Chronic kidney disease, stage 3b; I44.2 Atrioventricular block, complete; I50.812 Chronic right heart failure; E55.9 Vitamin D deficiency, unspecified; E78.00 Pure hypercholesterolemia, unspecified; D63.1 Anemia in chronic kidney disease

== ENCOUNTER → 2024-10-22 13:54 | Outpatient (BNVA) | payer BC, SELFPAY | PROVIDERS: PCP Internal Medicine | DX: I42.9 Cardiomyopathy, unspecified (principal); I13.0 Hypertensive heart and chronic kidney disease with heart failure and stage 1 through stage 4 chronic kidney disease, or unspecified chronic kidney disease; N18.32 Chronic kidney disease, stage 3b; I50.812 Chronic right heart failure; I50.40 Unspecified combined systolic (congestive) and diastolic (congestive) heart failure; D63.1 Anemia in chronic kidney disease; I44.2 Atrioventricular block, complete; E55.9 Vitamin D deficiency, unspecified; E78.00 Pure hypercholesterolemia, unspecified; Z79.899 Other long term (current) drug therapy; Z95.0 Presence of cardiac pacemaker | CPT/HCPCS: 96127 ==

== ENCOUNTER 2024-10-22 14:53 | Outpatient (AMB) | payer BC, SELFPAY ==
[2024-10-22 15:00] VITALS: BP 100/62; PULSE 89; BMI 36.0
--- NOTE | 2024-10-22 15:00 | A.OFFVIS_ITS ---
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: No Allergies regadenoson [From Lexiscan] Adverse Reaction (Severe, Verified 10/22/24 15:01) seizure type activity Medication List - Last Reconciled 10/22/24 by MADDIE King alcohol swabs (BD Alcohol Swabs) 1 pad topical QID amlodipine 10 mg PO DAILY 90 days atorvastatin 20 mg PO BEDTIME 90 days blood sugar diagnostic (OneTouch Verio test strips) 1 strip miscellaneous TID 30 days blood sugar diagnostic (OneTouch Ultra Test strips) As directed -tests 4 X/day blood-glucose meter (OneTouch Ultra2 Meter) As directed tests 4 X/day blood-glucose meter,continuous (FreeStyle Tish 3 [place]) As directed blood-glucose sensor (FreeStyle Tish 3 Sensor device) As directed bumetanide 2 mg PO BID 30 days cholecalciferol (vitamin D3) 50 mcg PO DAILY 90 days hydralazine 100 mg PO TID 90 days insulin glargine (Basaglar KwikPen U-100 Insulin) 10 units (0.1 mL) subcut QPM 30 days isosorbide mononitrate ER 60 mg PO DAILY 90 days labetalol 100 mg PO BID lancets As directed lancets (OneTouch UltraSoft Lancets) As directed-tests 4 X/day pen needle, diabetic As directed spironolactone 50 mg (2 x 25 mg) PO QAM tamsulosin 0.4 mg PO DAILY 90 days Trulicity (dulaglutide) 1.5 mg (0.5 mL) subcut QWEEK 30 days NS HPI HPI 2 month follow up / echo r/s 08-15: Details: Quintin is a 59-year-old male past medical history of hypertension, hyperlip idemia, diabetes, chronic kidney disease, right heart failure, dual-chamber pacemaker, brief NSVT, recent echos showing EF 35-40%. Today he reports that he has been feeling well overall. He denies chest discomfort at rest or with activity. He denies shortness of breath, PND, orthopnea or edema. No heart palpitations, lightheadedness, presyncope, syncope. He does fatigue easily. 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 He is taking his meds as directed. He follows with Dr. Liz for Nephrology. [facility] Medical History Vitamin D deficiency Obesity (BMI 30-39.9) Pure hypercholesterolemia Benign essential hypertension Combined systolic and diastolic congestive heart failure Chronic kidney disease (CKD), stage III (moderate) Diabetic foot ulcer with osteomyelitis Complete heart block CHF (congestive heart failure) BPH (benign prostatic hyperplasia) Proteinuria Hyperlipidemia Essential hypertension Normally functioning cardiac pacemaker present Chronic right heart failure Heart block CKD (chronic kidney disease) Hypertension Type 2 diabetes mellitus Pacemaker Surgical History History of amputation of toe Type 2 diabetes mellitus with other diabetic kidney complication History of cardiac pacemaker (~04/15/20) Family History Mother CVA (cerebral vascular accident) Diabetes Social History Housing: Apartment Alcohol intake: never Patient Tobacco Use Status: Never used Tobacco Tobacco use type: Cigarette e-Cigarette/Vaping Use: Never Used Second Hand Smoke Exposure: Yes service: Yes Current occupational status: employed Cognitive needs: No Hearing needs: No Vision needs: No Review of Systems Const All systems reviewed & are unremarkable except as noted in HPI and below ENT Denies dizziness Card Denies chest pain, Denies chest pain at rest, Denies chest pain with activity, Denies rapid heart rate, Denies pedal edema, Denies edema, Denies leg edema, Denies lightheadedness, Denies palpitations, Denies dyspnea, Denies dyspnea on exertion and Denies orthopnea Resp Denies cough, Denies dyspnea and Denies dyspnea on exertion GI Denies hematochezia and Denies change in stool character Musc Denies abnormal gait, Denies limited range of motion, Denies muscle cramps, Denies muscle weakness, Denies numbness, Denies radiating pain into limb, Denies stiffness and Denies tingling Neuro Denies abnormal gait, Denies dizziness, Denies numbness and Denies tingling Endo Denies palpitations Physical Exam Vital Signs: Last Vital Signs Pulse 89 10/22/24 15:00 BP 100/62 10/22/24 15:00 BMI result Body Mass Index 36.0 Const General: cooperative, healthy appearing, comfortable and no acute distress Orientation/consciousness: patient oriented x3 Neck Neck: Yes normal visual inspection Resp Effort & Inspection: normal respiratory effort Auscultation: clear to auscultation bilaterally, no rales, no rhonchi and no wheezes Cardio Rate: regular rate Rhythm: regular rhythm Heart sounds: S1 normal heart sound present, S2 normal heart sound present, no gallops, no murmurs and no rubs Neuro General: patient oriented x3 Extrem General: Yes normal to inspection, No no pedal edema and No calf tenderness Psych Appearance: grossly normal Mental Status: mental status grossly normal Speech and movement: Normal speech and movement present Assessment & Plan Assessment & Plan (1) Cardiomyopathy: Code(s): I42.9 - Cardiomyopathy, unspecified Category: Medical Plan: History of heart failure with preserved EF, right-sided heart failure. Echo done 06/26/2020 showed normal EF. Echocardiogram was done on 09/28/2023 showing EF 35- 40%, mild LVH. A repeat echocardiogram was done 10/12/2024 again showing EF 35- 40%. He does not appear fluid overloaded on exam. He denies any anginal sounding symptoms. He continues on Bumex 2 mg b.i.d. and Aldactone 50 mg daily. He is currently on labetalol which I will environmental change analyst to carvedilol. His blood pressure is low normal today. I will reduce the amlodipine from 10 mg daily down to 5 mg daily. If his blood pressure does rise with this change the amlodipine can be put back to 10 mg. He is not on Hamzah or Arb due to CKD. He is on hydralazine and isosorbide. Discussed the need for cardiac catheterization to evaluate for obstructive CAD. Risks of the procedure including JULIA reviewed with him in detail. He states understanding and is agreeable to proceed. Will order preprocedure labs and left heart cardiac catheterization. Cardiology follow-up 2 weeks post procedure. (2) Combined systolic and diastolic congestive heart failure: Code(s): I50.40 - Unspecified combined systolic (congestive) and diastolic (congestive) heart failure Category: Medical Qualifiers: Heart failure chronicity: unspecified Qualified Code(s): I50.40 - Unspecified combined systolic (congestive) and diastolic (congestive) heart failure Plan: Stable at present. Signs and symptoms of heart failure reviewed with him. He states full understanding. (3) Complete heart block: Comment: S/P pacemaker insertion on 04/15/2020 Code(s): I44.2 - Atrioventricular block, complete Category: Medical Plan: History of complete heart block. Has Biotronik dual-chamber pacemaker in place. Functioning normally on last office interrogation, 07/23/2024. Does have remote monitoring in use as well. Next office interrogation due around January 2025 (4) Normally functioning cardiac pacemaker present: Code(s): Z95.0 - Presence of cardiac pacemaker Category: Medical Plan: As above (5) Essential hypertension: Code(s): I10 - Essential (primary) hypertension Category: Medical Plan: As above Plan Time spent on chart review, documentation, interview and assessment Orders: Orders Cardiac Cath LT w PCI Today I42.9 - Cardiomyopathy, unspecified Prothrombin Time INR Today I42.9 - Cardiomyopathy, unspecified Basic Metabolic Panel Today I42.9 - Cardiomyopathy, unspecified Complete Blood Count Auto Diff Today I42.9 - Cardiomyopathy, unspecified Medications: New amlodipine Reduced dose - Amlodipine 5 mg daily 5 mg PO DAILY 90 tabs 1RF carvedilol must administer with a meal/food Stop Labetolol and start Carvedilol 12.5 mg PO BID 60 tabs 5RF Discontinued labetalol Discontinued Reason: Doctor's Order 100 mg PO BID 180 tabs 2RF amlodipine Discontinued Reason: Doctor's Order 10 mg PO DAILY 90 days 90 tabs 1RF Coding Level of Care Code Est Pt Level 4 (10196) Complex EM visit Add On G2211 Diagnoses Cardiomyopathy I42.9 Combined systolic and diastolic congestive heart failure, unspecified HF chronicity I50.40 Heart failure chronicity: unspecified Complete heart block I44.2 Normally functioning cardiac pacemaker present Z95.0 Essential hypertension I10 Time Spent (min) 32
--- OUTSIDE RECORDS SUMMARY | 2024-10-22 16:28 | XMS_ITS | Continuity of Care Document ---
Author Name [facility] Organization [facility] Care Team Providers Care Human Resources Analyst Name Role Phone [facility] Unavailable Unavailable Immunizations Combined list of available immunizations from the Department of Defense and Veterans Affairs facilities. Immunization Series Date Given Administered By Site Reaction Lot Number CVX Code Drug Retail And Restaurant Status Comments Source INFLUENZA, SEASONAL, INJECTABLE 2017 [...] complet ed [facility] INFLUENZA, UNSPECIFIED FORMULATION 1996 Reynaldo BECK 88 complet ed [facility]
--- OUTSIDE RECORDS SUMMARY | 2024-10-22 16:28 | XMS_ITS | Continuity of Care Document ---
Author Organization [facility] Address [address] [place] [address] Phone Care Team Providers Care Nurse Orthopedic Name Role Phone Unavailable Unavailable Unavailable Advance Directives Directive Yes / No Effective Date File Name No Information Encounters Encounter Description Practice Location Reason(s) For Visit Diagnoses Date Provider Providers Copied on Encounter [facility], [address], [place], [place], [id number], [place] tel:[phone] Imported From Previous EHR No Information No [...]
--- OUTSIDE RECORDS SUMMARY | 2024-10-22 16:28 | XMS_ITS | Continuity of Care Document ---
Author Organization [facility] Address [address] [place] [address] Phone Care Team Providers Care Lead Maintenance Technician Name Role Phone [facility] Unavailable Unavailable Allergies, Adverse Reactions, Alerts [...] Active Procedures Procedure Date CONTACT LENS FITTING [facility] Tech 0 EYE EXAM & TREATMENT REFRACTION EYE EXAM & TREATMENT REFRACTION CTL Tech CONTACT LENS FITTING [facility] Tech 9 OFFICE/OUTPATIENT VISIT, EST OFFICE/OUTPATIENT VISIT, EST REFRACTION CTL Tech CONTACT LENS FITTING CTL Tech 8 EYE EXAM & TREATMENT EYE EXAM & TREATMENT CONTACT LENS FITTING CTL Tech 7 REFRACTION CTL Tech EYE EXAM & TREATMENT CONTACT LENS FITTING CTL Tech 6 REFRACTION [facility] Tech EYE EXAM ESTABLISHED [facility] OFFICE/OUTPATIENT VISIT, NEW Advance Directives Directive Yes / No Effective Date File Name No Information Encounters Encounter Description Practice Location Reason(s) For Visit Diagnoses Date Provider Providers Copied on Encounter [facility] [place], [place], [id number], tel:[phone] [facility] No Information [facility] . [address] [place] [address], [id number]. tel:[phone] Referring Provider: Radha Stewart [facility] Anne [address], [place], [address]. tel:[phone] [facility] [address] [place] [address], [id number], [place] tel:[phone] [facility] Contact lens evaluation (chief complaint) No Information 0 Mariel Garcia [facility] [address], [place], [address], [place]. tel:[phone] Referring Provider: Radha Stewart [address], [place], [address]. tel:[phone] [facility] [place], [place], [id number], [place] tel:[phone] [facility] routine exam (chief complaint) PresbyopiaNu clear Sclerosis OUCentral corneal ulcer, right eye 0 Mariel tabares [address] [facility] [address], [place], [address], [place]. tel:[phone] Referring Provider: Rahda Stewart [address], [place], [address]. tel:[phone] [facility] [place], [place], [id number], [place] tel:[phone] [facility] comprehensiv e exam (chief complaint) PresbyopiaNu clear Sclerosis OUCentral corneal ulcer, right eye 9 Mariel tabares [address] [place] [address] , [place], [address], [place]. tel:[phone] Referring Provider: Pranay Floyd [facility] , [place], [address]. tel:[phone] OFFICE/OUTPA TIENT VISIT, EST [facility] [address] [place] [address], [id number], [place] tel:[phone] [facility] 3 day recheck Corneal Ulcer (chief complaint) Central corneal ulcer, right eye 8 Faustino Del Angel. [address] [place] [address], [id number], [place]. tel:[phone] Referring Provider: Pranay Floyd [facility] , [place], [address]. tel:[phone] OFFICE/OUTPA TIENT VISIT, EST [facility] [address] [place] [address], [id number], [place] tel:[phone] [facility] FBS (chief complaint) Central corneal ulcer, right eye 8 Faustino Del Angel. [address] [place] [address], [id number], [place]. tel:[phone] Referring Provider: Pranay Floyd [facility] , [place], [address]. tel:[phone] [facility] [address] [place] [address], [id number], [place] tel:[phone] [facility] No Information 8 Mariel tabares [facility] , [place], [address], [place]. tel:[phone] Referring Provider: Radha Stewart [facility] [address], [place], [address]. tel:[phone] [facility] [address] [place] [address], [id number], [place] tel:[phone] [facility] comprehensiv e exam (chief complaint) Nuclear Sclerosis OUPresbyopia 8 Mariel tabares [facility] [address], [place], [address], [place]. tel:[phone] Referring Provider: Radha Stewart [address], [place], [address]. tel:[phone] [facility] [address] [place] [address], [id number], [place] tel:[phone] [facility] comprehensiv e exam (chief complaint) Age-related nuclear cataract, bilateralPre sbyopia 7 Mariel tabares [facility] [address], [place], [address], [place]. tel:[phone] Referring Provider: Radha Stewart [address], [place], [address]. tel:[phone] [facility] [address] [place] [address], [id number], [place] tel:[phone] [facility] comprehensiv e exam (chief complaint) Age-related nuclear cataract, bilateralPre sbyopia 0 6 Mariel Garcia [facility] [address], [place], [address], [place]. tel:[phone] Referring Provider: Radha Stewart [address], [place], [address]. tel:[phone] [facility] [address] [place] [address], [id number], tel:[phone] [facility] metal FB (chief complaint) Foreign body in post wall of eye 5 Bubba Vela. [address] [facility] , [place], [place], [id number], . tel:[phone] Referring Provider: Pranay Floyd [address] [place] [address] , [place], [address]. tel:[phone] OFFICE/OUTPA TIENT VISIT, [facility] [address] [facility], [place], [place], [id number], tel:[phone] [facility] metal in eye (chief complaint) Foreign body in post wall of eye 5 Mariel tabares [address] [place] [address] , [place], [address], [place]. tel:[phone] Referring Provider: Pranay Floyd [address] [place] [address] , [place], [address]. tel:[phone] Family History Family Member Type Diagnosis Age At Onset Mother Problem (finding) Heart disease Payers Payer name Insurance type Covered constitution party ID Authortanga reji(s) [facility] 1928–[facility] Eye Care [id number] Social History Type Description Quantity Date Captured [...]
--- OUTSIDE RECORDS SUMMARY | 2024-10-22 16:28 | XMS_ITS | Continuity of Care Document ---
Author Organization [facility] Address [address] [place] [address] [place] [address] Phone Care Team Providers Care Linker Up Name Role Phone Jazzy Diaz MD Unavailable [...] X-ray Knee Complete Standing (4 Views)(A P,Tunnel,Lateral, [place]) DepoMedrol 80mg Inj/Asp. Large jt. bursa (shoulder, [...] Diagnoses Date Provider Providers Copied on Encounter [address] , [place], [place], [address], [place] tel:[phone] No Information [address]cell[address] [facility], [place], [place], [address], [place]. tel:[phone] Office/Establ ished Level [address] , [place], [place], [id number], [place] tel:[phone] Pulmonary Lung cancer (chief complaint)Sh ortness of breath (chief complaint) Non-small cell cancer of left lungShortnes s of breathTobacc o abuseBody mass index (BMI) 29.0-29.9, adult Dec-2 1 Juanjose Jara. [address] [place] [address], [address], [place]. tel:[phone] Primary Practice Provider: Job Ann, [address] [facility], [place], [address]. tel:[phone] Provider: Estefani Moulton, [address] [place] [address], [address]. tel:[phone] , [place], [place], [address], [place] tel:[phone] Family Medicine At [facility] No Information 1 Seth Kaiser. [address] [facility], [place], [place], [address], [place]. tel:[phone] Office/Establ ished Level [address] , [place], [place], [address], [place] tel:[phone] Pulmonary HFU (chief complaint)CO PD (follow up) (chief complaint)Veronica ng Cancer (chief complaint) Non-small cell cancer of left lungAbnormal findings on diagnostic imaging of lungTobacco abuseBody mass index (BMI) 28.0-28.9, adult Feb- 1 Juanjose Jara. [address] [place] [address], [address], [place]. tel:[phone] Primary Practice Provider: Job Ann, [address], [place], [address]. tel:[phone] ring Provider: Estefani Moulton, [address] [place] [address], [place], [address]. tel:[phone] , [place], [place], [address], [place] tel:[phone] Scan At [facility] [place][note 2] No Information 1 Juanjose Jara. [address] [place] [address], [address], [place]. tel:[phone] Referring Provider: Estefani Moulton, [address] [place] [address], [address]. tel:[phone] , [place], [place], [address], [place] tel:[phone] Internal Medicine [facility] [place] No Information 1 Maddy Tee. [address] [place] [address] , [place], [place], [id number], [place]. tel:[phone] , [place], [place], [address], [place] tel:[phone] Pulmonary Shortness of breath 1 Juanjose Jara. [address] [place] [address], [address], [place]. tel:[phone] SUBSEQUENT HOSPITAL CARE [address] [place], [address], [place] tel: [phone] [facility] IP No Information 0 Jeff Dennison. [address] [place] [address], [address], [place]. tel:[phone] Referring Provider: Juma Aguilar, [address] [place] [address], [address]. tel: [phone] Initial Hospital Care [address] , [place], [place], [address], [place] tel: [phone] [facility] IP No Information 0 Jori Bond. [address] [place] [address], [address], [place]. tel:[phone] Referring Provider: Varun Hsieh, [address] [place] [address], [address]. tel: [phone] [facility] [address] , [place], [place], [address], [place] tel: [phone] [facility] IP No Information 0 Antonio Mota. [address] [place] [address], [address], [place]. tel:[phone] Referring Provider: Nakul Alvarez, [address] [place] [address], [address]. tel: [phone] INPATIENT CONSULTATION [address] , [place], [place], [id number], [place] tel: [phone] [facility] IP No Information 0 Jeff Dennison. [address] [place] [address], [address], [place]. tel:[phone] Referring Provider: Juma Aguilar, [address] [place] [address], [address]. tel: [phone] [address] , [place], [place], [address], [place] tel: [phone] [facility] IP No Information 0 Valarie Garrison. [address] [place] [address], [address], [place]. tel:[phone] Referring Provider: Bladimir Sheppard [address] [place] [address], [address]. tel:[phone] SUBSEQU[facility] HOSPITAL CARE [address] [place], [address], tel: [phone] [facility] IP No Information Dec-2 0 Antonio Mota. [address] [place] [address], [address], [place]. tel:[phone] Referring Provider: Nakul Alvarez, [address] [place] [address], [address]. tel: [phone] Office/Establ ished Level [address] [place], [place], [address], [place] tel: [phone] Cardiology At [facility] [place][note 2] Coronary artery disease (chief complaint)hy pertension (chief complaint)hy perlipidemia (chief complaint)to bacco use (chief complaint) Mixed hyperlipidem iaEssential (primary) hypertension Atherosclero tic heart disease of t[place] apache coronary artery without angina pectorisToba tobacco stemmer abuseBody mass index (BMI) 28.0-28.9, adult Dec-0 0 Misbah Jordan. [address] [place] [address] [place], [id number], [place]. tel:[phone] Referring Provider: Job Ann, [address] , [place], [address]. tel:[phone] Office/Establ ished Level [address] [place], [address], [place] tel:[phone] Pulmonary lung cancer (chief complaint) Non-small cell cancer of left lungShortnes s of breathBody mass index (BMI) 28.0-28.9, adult Dec-0 0 Juanjose Jara. [address] [place] [address], [address], [place]. tel:[phone] Primary Practice Provider: Job Ann, [address] , [place], [address]. tel:[phone] ring Provider: Estefani Moulton, [address] [place] [address], [address]. tel:[phone] , [place], [place], [address], [place] tel:[phone] MRI At 1202 Non-small cell cancer of left lung Sep-0 0 Juanjose Jara. [address] [place] [address], [address], [place]. tel:[phone] , [place], [place], [address], [place] tel:[phone] X Ray At 1202 No Information Sep-0 0 Juanjose Jara. [address] [place] [address], [address], [place]. tel:[phone] Referring Provider: Estefani Moulton, [address] [place] [address], [address]. tel:[phone] , [place], [place], [address], [place] tel:[phone] Pulmonary No Information Sep-0 0 Juanjose Jara. [address] [place] [address], [employer], [place]. tel:[phone] Referring Provider: Job Ann, [address], [place], [address]. tel:[phone] Office/Establ ished Level [address] , [place], [place], [address], [place] tel:[phone] Clinic Virtual fu after pet (chief complaint) Non-small cell cancer of left lungBody mass index (BMI) 28.0-28.9, adult Aug-2 0 Juanjose Jara. [address] [place] [address], [address], [place]. tel:[phone] Primary Practice Provider: Job Ann [address], [place], [address]. tel:[phone] ring Provider: Job Ann, [address], [place], [address]. tel:[phone] [address] , [place], [place], [address], [place] tel: [phone] [facility] OP No Information 0 Elieser Villegas. [address] [place] [address] , [place], [id number], [place]. tel:[phone] Referring Provider: Bakari Mon, [address] [place] [address] , [place], [address]. tel: [phone] [address] , [place], [place], [address], [place] tel: [phone] Pulmonary Hilar mass 0 Juanjose Jara. [address] [place] [address], [employer], . tel:[phone] Office Consult Level [address] , [place], [place], [address], [place] tel: [phone] Pulmonary hilar mass (chief complaint)Vo heidi Cord dysfunction (chief complaint) Hilar massSolitary pulmonary noduleParaly sis of vocal cords and larynx, unilateralBo dy mass index (BMI) 30.0-30.9, adult Apr-0 0 Juanjose Jara. [address] [place] [address], [employer], [place]. tel:[phone] Primary Practice Provider: Job Ann, [address], [place], [address]. tel: [phone] ring Provider: Job Ann, [address], [place], [address]. tel:[phone] [address] , [place], [place], [address], [place] tel: [phone] Pulmonary Hilar mass 0 Juanjose Medina [address] [place] [address], [employer], [place]. tel:[phone] Referring Provider: Estefani Moulton, [address], [place], [address]. tel:[phone] Office/Establ ished Level [address] [place], [id number], [place] tel:[phone] [facility] At [facility] Follow Up of Hyperlipidem ia (chief complaint)Fo llow Up of Hypertension (chief complaint)Hy pogonadism (chief complaint)Vyas nd arthritis (chief complaint) Mixed hyperlipidem iaHilar massEssentia l (primary) hypertension Hypogonadism in maleLong term use of drugBody mass index (BMI) 29.0-29.9, adult 0 Seth Kaiser. [address] , [place], [place], [address], [place]. tel:[phone] Referring Provider: Job Ann, [address] [facility], [place], [address]. tel:[phone] , [place], [place], [address], [place] tel:[phone] Internal Medicine [facility] [place] No Information 0 Seth Kaiser. [address] [place], [address], [place]. 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 [address] [place], [address], [place]. tel:[phone] Referring Provider: Job Ann, [address] , [place], [address]. tel:[phone] [place], [place], [address], [place] tel:[phone] Family Medicine At [facility] 0 Seth Kaiser. [address], [place], [place], [address], [place]. tel:[phone] , [place], [address], [place] tel: [phone] Family Medicine At [facility] 0 Seth Kaiser. [address], [place], [place], [address], [place]. tel:[phone] , [place], [place], [address], US tel: [phone] CT Scan At [facility] [place][note 2] Essential (primary) hypertension 0 Barrett Blanco. [address] [place] [address], [id number], [place]. tel:[phone] Referring Provider: Job Ann, [address] , [place], [address]. tel:[phone] Office Consult Level [address] [place], [place], [address], [place] tel:[phone] ENT At [place] [address] hoarseness (chief complaint) DysphoniaPar alysis of vocal cords and larynx, unilateralBo dy mass index (BMI) 30.0-30.9, adult 0 Barrett Blanco. [address] [place] [address], [id number], [place]. tel:[phone] Referring Provider: Job Ann, [address], [place], [address]. tel:[phone] [place], [place], [address], [place] tel:[phone] Family Medicine At [facility] Change in voice 0 Seth Kaiser. [address], [place], [place], [address], [place]. tel:[phone] Office/Establ ished Level [address] [place], [address], [place] tel:[phone] Clinic Virtual voice loss (chief complaint) Laryngitis 0 Jalyn Paz. [address] [place], [address], [place]. tel:[phone] Referring Provider: Brandi Gunderson, [address] [place], [address]. tel:[phone] , [place], [address], [place] tel:[phone] Special Testing At 1202 No Information 0 Misbah Jordan. [address] [place] [address] [place], [address], [place]. tel:[phone] Referring Provider: Julian Crawley, [address] [place] [address] [place], [address]. tel:[phone] [place], [address], [place] tel:[phone] X Ray At 1202 No Information 0 Misbah Jordan. [address] [place] [address] [place], [address], [place]. tel:[phone] Referring Provider: Julian Crawley, [address] [place] [address] [place], [address]. tel:[phone] Office/New Level [address] [place], [address], [place] tel:[phone] Cardiology At 1202 Coronary artery disease (chief complaint)hy pertension (chief complaint)hy perlipidemia (chief complaint)to bacco use (chief complaint) Mixed hyperlipidem iaEssential (primary) hypertension Atherosclero tic heart disease of tonto apache coronary artery without angina pectorisToba tobacco stemmer abuseCoughBo dy mass index (BMI) 31.0-31.9, adult 0 Misbah Jordan. [address] [place] [address] [place], [address], [place]. tel:[phone] Referring Provider: Job Ann, [address], [place], [address]. tel: [phone] [address] [place], [address], [place] tel: [phone] Lab At [facility] Mixed hyperlipidem ia 0 Seth Kaiser. [address] , [place], [place], [address], [place]. tel:[phone] Referring Provider: Job Ann, [address], [place], [address]. tel: [phone] Office/Establ ished Level [address] , [place], [place], [address], [place] tel: [phone] Family Medicine At [facility] Discuss Heart Score (chief complaint)hy perlipidemia (chief complaint) Elevated coronary artery calcium scoreMixed hyperlipidem iaBody mass index (BMI) 31.0-31.9, adult Nov- 0 Seth Kaiser. [address] , [place], [place], [address], [place]. tel:[phone] Referring Provider: Job Ann, [address] , [place], [address]. tel: [phone] [address] [place], [address], [place] tel: [phone] [facility] CT At [place] No Information 0 Ry Tee. [address] [place] [address], [address], [place]. tel:[phone] Referring Provider: Randal Raza, [address] [place] [address], [address]. tel: [phone] Preventative Established 40-64 yrs [address] [place], [address], [place] tel: [phone] Family Medicine Pending Sale To [facility] Preventive exam (chief complaint) Body mass index (BMI) 32.0-32.9, adultEssenti al (primary) hypertension Tobacco abuseMixed hyperlipidem iaBarrett's esophagus without dysplasiaHyp ogonadism in maleLong term use of drug 0 Seth Kaiser. [address], [place], [place], [address], [place]. tel:[phone] Referring Provider: Jazzy Diaz, [address], [place], [address]. tel:[phone] , [place], [place], [address], [place] tel:[phone] Lab At [facility] Mixed hyperlipidem iaTesticular hypofunction Encounter for screening for malignant neoplasm of prostate 0- 0 Seth Kaiser. [address], [place], [place], [address], [place]. tel:[phone] Referring Provider: Gricelda Warner, [address] [facility] [address], [place], [address]. tel:[phone] Office/Establ ished Level [address] [place], [address], [place] tel:[phone] Orthopedics At [facility] [place][note 2] Knee Pain (chief complaint) Osteoarthrit is of right knee, unspecified osteoarthrit is typeBody mass index (BMI) 32.0-32.9, adult Mar--201 9 Antonio tabares [address] [place] [address] [place], [address], [place]. tel:[phone] Referring Provider: Pranay Alvarez, [address] [place] [address] [place], [address]. tel:[phone] Office/Establ ished Level [address] [place], [address], [place] tel:[phone] [facility] Medicine At [facility] Follow Up of Hyperlipidem ia (chief complaint)Fo llow Up of Hypertension (chief complaint)GE RD (chief complaint) Hypogonadism in maleLong term use of drugEssentia l (primary) hypertension Mixed hyperlipidem iaBarrett's esophagus without dysplasiaTob acco abuseBody mass index (BMI) 32.0-32.9, [facility] of prostate Feb- 9 Sandeepmarbella Job. [address] , [place], [place], [address], [place]. tel:[phone] Referring Provider: Gricelda Warner, [address] [facility] [address], [place], [address]. tel:[phone] [place], [address], [place] tel: [phone] Lab At [facility] Testicular hypofunction Essential (primary) hypertension Feb- 9 Seth Kaiser. [address] , [place], [place], [address], [place]. tel:[phone] Referring Provider: Jazzy Diaz, [address] [facility], [place], [address]. tel:[phone] [address] [place], [address], [place] tel: [phone] [facility] Internal Medicine At [facility] [place][note 2] Essential (primary) hypertension Hypogonadism in maleMixed hyperlipidem ia 9 Timmy Madison. [address] [facility], [address], [place], [place], [address], [place]. tel:[phone] Office/Establ ished Level [address] [place], [address], [place] tel:[phone] Orthopedics At [place] 8114 Knee Pain (chief complaint) Osteoarthrit is of right knee, unspecified osteoarthrit is typeBody mass index (BMI) 31.0-31.9, adult Apr-0 9 Antonio tabares [address] [place] [address] [place], [address], [place]. tel:[phone] Referring Provider: Pranay Alvarez, [address] [place] [address] [place], [address]. tel:[phone] Office Consult Level [address] [place], [id number], [place] tel:[phone] Orthopedics At [facility] [place][note 2] Knee Pain (chief complaint) Body mass index (BMI) 31.0-31.9, adultOsteoar thritis of right knee, unspecified osteoarthrit is typePain in right knee Nov- 9 Antonio tabares [address] [place] [address] [place], [address], [place]. tel:[phone] Referring Provider: Gricelda Warner, [facility]4 [address] [facility] [address], [place], [address]. tel:[phone] [place], [id number], [place] tel:[phone] X Ray At [facility][note 2] No Information Nov- 9 Antonio tabares [address] [place] [address] [place], [address], [place]. tel:[phone] Referring Provider: Pranay Alvarez [address] [place] [address] [place], [address]. tel:[phone] [place], [address], [place] tel:[phone] Family Medicine At [facility] Pain in right kneeOsteoart hritis of right knee, unspecified osteoarthrit is type Mar-0 9 Timmy Madison. [address], [address], [place], [place], [address], [place]. tel:[phone] Office/Establ ished Level [address] [place], [address], [place] tel:[phone] Family Medicine At [facility] Joint pain (chief complaint) Body mass index (BMI) 31.0-31.9, adultChronic pain of right kneeOther chronic painOsteoart hritis of right knee, unspecified osteoarthrit is type 9 Timmy Madison. [address] [facility] [address], [address], [place], [place], [address], [place]. tel:[phone] Referring Provider: Gricelda Warner, [address], [place], [address]. tel: [phone] Office/Establ ished Level [address] [place], [address], [place] tel: [phone] Gastroenter ology At 1202 10-14 day follow up after procedure (chief complaint) Body mass index (BMI) 31.0-31.9, adultBarrett 's esophagus without dysplasia 9 Maddy Tee. [address] [place] [address] [place], [address], [place]. tel:[phone] Referring Provider: Jazzy Diaz, [address] [facility], [place], [address]. tel: [phone] [address] [place], [address], [place] tel: [phone] Gastroenter ology At 1202 No Information 8 Maddy Tee. [address] [place] [address] [place], [address], [place]. tel:[phone] Referring Provider: Randal Castañeda, [address] [place] [address] [place], [address]. tel: [phone] Office Consult Level [address] [place], [id number], [place] tel: [phone] Gastroenter ology At 1202 Dysphagia (chief complaint) Body mass index (BMI) 30.0-30.9, adultHeartbu rnDysphagia, unspecified 8 Maddy Tee. [address] [place] [address] [place], [id number], [place]. tel:[phone] Referring Provider: Gricelda Warner, [address], [place], [address]. tel:[phone] Preventative Established 40-64 yrs [address] [place], [address], tel:[phone] Family Medicine Pending Sale To [facility] Preventive exam (chief complaint) Encntr for general adult medical exam w/o abnormal findingsEsse ntial (primary) hypertension Hypogonadism in malePersonal history of nicotine dependenceGa stroesophage al reflux disease without esophagitisB dalton mass index (BMI) 31.0-31.9, adultMixed hyperlipidem iaRefused diphtheria-t etanus vaccinePhary ngoesophagea l dysphagia 8 Timmy Madison. [address], [address], [place], [place], [address], [place]. tel:[phone] Referring Provider: Joey Mckeon [address], [place], [address]. tel:[phone] [place], [address], [place] tel:[phone] Lab Pending Sale To [facility] Essential (primary) hypertension Testicular hypofunction 8 Timmy Madison. [address], [facility] [place], [place], [address], [place]. tel:[phone] Referring Provider: Joey Mckeon [address] [place], [address]. tel:[phone] Office/Establ ished Level [address] [place], [address], [place] tel:[phone] Family Medicine Pending Sale To [facility] Chronic conditions (chief complaint) Essential (primary) hypertension Hypogonadism in malePersonal history of nicotine dependenceGa stroesophage al reflux disease without esophagitis 8 Timmy Madison. [address], [address], [place], [place], [address], [place]. tel:[phone] Referring Provider: Jazzy Diaz [address], [place], [address]. tel: [phone] [address] [place], [address], [place] tel: [phone] Family Medicine At [facility] Testicular hypofunction Essential (primary) hypertension 8 Joe Jazzy. [address], [place], [place], [address], [place]. tel:[phone] Referring Provider: Jazzy Diaz [address], [place], [address]. tel: [phone] Preventative Established 40-64 yrs [address] [place], [address], [place] tel: [phone] Family [facility] Preventive exam (chief complaint) Encntr for general adult medical exam w/o abnormal findingsEsse ntial (primary) hypertension Testicular hypofunction Gastroesopha geal reflux disease without esophagitisP ersonal history of nicotine dependenceBo dy mass index (BMI) 31.0-31.9, adult Nov- 7 Joe Jazzy. [address], [place], [place], [address], [place]. tel:[phone] Referring Provider: Jazzy Diaz [address], [place], [address]. tel: [phone] [address] [place], [place], [address], [place] tel: [phone] [facility] Testicular hypofunction Essential (primary) hypertension 7 Joe Jazzy. [address], [place], [place], [address], [place]. tel:[phone] Referring Provider: Jazzy Diaz [address], [place], [address]. tel: [phone] [address] [place], [address], [place] tel: [phone] Surgery At 1202 post OP (chief complaint) Postoperativ e visit Anamaria Peterson. [address] [place] [address], [address], . tel:[phone] Referring Provider: Kristen Conrad, [address] [place] [address], [address]. [phone] , [place], [place], [address], [place] tel:[phone] Surgery At 1202 post OP (chief complaint) Body mass index (BMI) 30.0-30.9, adultPostope rative visit Anamaria Peterson. [address] [place] [address], [address], [place]. tel:[phone] Referring Provider: Kristen Conrad, [address] [place] [address], [address]. [phone] , [place], [place], [id number], [place] tel:[phone] Surgery At 1202 Sebaceous cyst (chief complaint) Epidermoid cyst Anamaria Peterson. [address] [place] [address], [address], [place]. tel:[phone] Referring Provider: Jazzy Diaz, [address], [place], [address]. tel:[phone] Office/Establ ished Level [address] , [place], [place], [id number], [place] tel:[phone] [facility] hypertension (chief complaint)hy perlipidemia (chief complaint)Hy pogonadism (chief complaint)GE RD (chief complaint)sm oking (chief complaint) Essential (primary) hypertension Hypogonadism in maleGastroes ophageal reflux disease without esophagitisS moking 7 Joe Purcell. [address], [place], [place], [address], [place]. tel:[phone] Referring Provider: Jazzy Diaz [address], [place], [address]. tel:[phone] [place], [place], [id number], tel:[phone] Family Medicine Pending Sale To [facility] Encntr for general adult medical exam w/o abnormal findings Dec- Joe Purcell. [address], [place], [place], [address], [place]. tel:[phone] Referring Provider: Jazzy Diaz, [address], [place], [address]. tel:[phone] , [place], [place], [address], [place] tel:[phone] Family [facility] Encntr for general adult medical exam w/o abnormal findings Dec- Joe Purcell. [address], [place], [place], [id number], [place]. tel:[phone] Referring Provider: Jazzy Diaz [address], [place], [address]. tel:[phone] [place], [address], [place] tel:[phone] [facility] Skin lesion (chief complaint) Epidermoid cyst Dec- Joe Purcell. [address], [place], [place], [id number], [place]. tel:[phone] Referring Provider: Jazzy Diaz [address], [place], [address]. tel:[phone] Office/Establ ished Level [address] [place], [id number], [place] tel:[phone] Family [facility] Skin lesion (chief complaint) Abscess Dec- 7 Joe Purcell. [address], [place], [place], [id number], [place]. tel:[phone] Referring Provider: Jazzy Diaz [address], [place], [address]. tel:[phone] Office/Establ ished Level [address] , [place], [place], [address], [place] tel:[phone] Family Medicine Pending Sale To [facility] Sinus symptoms (acute) (FP) (chief complaint) Acute non-recurren t maxillary sinusitis 6 Joe Purcell. [address], [place], [place], [id number], [place]. tel:[phone] Referring Provider: Jazzy Diaz, [address], [place], [address]. tel:[phone] , [place], [place], [address], [place] tel:[phone] Family Medicine Pending Sale To [facility] Encntr for general adult medical exam w/o abnormal findings 6 Joe Purcell. [address], [place], [place], [id number], [place]. tel:[phone] Referring Provider: Jazzy Diaz [address], [place], [address]. tel:[phone] , [place], [place], [address], [place] tel:[phone] X Ray At 1202 No Information 6 Armando Aguilar. [address] [place] [address], [address], [place]. tel:[phone] Referring Provider: Lauren Roberts, [address] [place] [address], [address]. tel:[phone] Office/Establ ished Level [address] [place], [place], [address], [place] tel:[phone] Orthopedics At 1202 Knee Pain (chief complaint) Primary osteoarthrit is of right knee 6 Armando Aguilar. [address] [place] [address], [address], [place]. tel:[phone] Referring Provider: Jazzy Diaz [address], [place], [address]. tel:[phone] Preventative Established 40-64 yrs [address] [place], [id number], [place] tel:[phone] Family [facility] Preventive exam (chief complaint) Encntr for general adult medical exam w/o abnormal findingsEsse ntial (primary) hypertension Body mass index (BMI) 29.0-29.9, adultSmoking Pain in right kneeOther chronic painHypogona dism in male Jun- 6 Joe Purcell. [address], [place], [place], [address], [place]. tel:[phone] Referring Provider: Jazzy Diaz [address], [place], [address]. tel:[phone] [place], [address], [place] tel:[phone] [facility] Testicular hypofunction Jun- 6 Joe Purcell. [address], [place], [place], [address], [place]. tel:[phone] Referring Provider: Jazzy Diaz [address], [place], [address]. tel:[phone] [place], [id number], [place] tel:[phone] Family [facility] hypertension (chief complaint)hy perlipidemia (chief complaint)Hy pogonadism (chief complaint) Essential (primary) hypertension Hypogonadism in male Apr-0 8 6 Joe Purcell. [address], [place], [place], [address], [place]. tel:[phone] Referring Provider: Jazzy Diaz [address], [place], [address]. tel:[phone] [place], [address], [place] tel: [phone] Family Medicine Pending Sale To [facility] Testicular hypofunction Encntr for general adult medical exam w/o abnormal findings 6 Joe Purcell. [address], [place], [place], [address], [place]. tel:[phone] Referring Provider: Jazzy Diaz, [address], [place], [address]. tel: [phone] [address] , [place], [place], [address], [place] tel: [phone] [facility] [place] [facility] right ear cyst (chief complaint) Cyst on ear 5 Barrett Blanco. [address] [place] [address], [place], [place], [id number], [place]. tel:[phone] Referring Provider: Jazzy Diaz, [address] [facility], [place], [address]. tel: [phone] [address] , [place], [place], [address], [place] tel: [phone] [facility]astro[facility]logy At [facility] [place][note 2] Follow Up of procedure (chief complaint) Benign neoplasm of ascending colon 5 Maddy Tee. [address] [place] [address] , [place], [place], [address], [place]. tel:[phone] Referring Provider: Randal Castañeda, [address] [place] [address] , [place], [address]. tel: [phone] [address] , [place], [place], [address], [place] tel: [phone] Family Medicine At [facility] Ear discomfort (chief complaint) Swelling of right earBilateral impacted cerumen 5 Joe Purcell. [address] , [place], [place], [address], [place]. tel:[phone] Referring Provider: Jazzy Diaz, [address], [place], [address]. tel: [phone] [address] [place], [address], [place] tel:[phone] Family [facility] At [facility] Preventive exam (chief complaint) No Information 5 Joe Purcell. [address] , [place], [place], [address], . tel:[phone] Referring Provider: Jazzy Diaz, [address] , [place], [address]. tel:[phone] , [place], [place], [address], tel:[phone] Family [facility] At [facility] Preventive exam (IM) (chief complaint)Hy pogonadism (chief complaint) No Information Humphrey Webb. [address] [place], [place], [employer], . Referring Provider: Job Ann, [address] , [place], [address]. tel:[phone] Family History Family Member Type Diagnosis Age [...] virus 3 years or older, Fluarix Quad [id number] refused Source: Ne w Immunization Record Influenza, injectable, quadrivalent, preservative free, 3 yrs or older administered Source: Other Ermias try Payers Payer name Insurance type Covered democrat ID Authortanga tirichard(s) BCBS [place] [id number] BCBS [facility] - [place] [id number] Social History Type Description Quantity Date Captured [...] ). Due on due Goal Depression scree edgadr. Due on due Goal Colonoscopy. Due on [...] Referral Referred To: Francis Morejon MD [address] [place], [place], [phone] Ordered: Referrals: Referrals: Referrals: Oncology. Francis Morejon MD. Consult ordered Referral Ordered: Referrals: Referrals: Pulmonology. Consult ordered Referral Ordered: Referrals: Referrals: Otolaryngology. Consult ordered Referral Referred To: Randal Raza MD [facility] [place], [phone] Ordered: Referrals: Cardiology. Randal Raza MD. Consult ordered Referral Ordered: Ren Canela M.D. (related to Osteoarthritis of right knee, unspecified osteoarthritis type) ordered Referral Referred To: Ren Canela M.D. Ordered: Referrals: Alternative Medicine. Ren Canela M.D.. Location: [facility]. Consult ordered Referral Ordered: Referrals: Orthopedic Surgery. [...] Radiol ogy Order CT CHEST WO CONTRAST ([id number]), Collected on: , Sent on: Sent Future Order: Radiol ogy Order XR SCREENING OF EYE FOR DETECTION OF FOREIGN BODY ([id number]), Sent on: Sent Future Order: Lab Order IStommyt Janes adames ([id number]), Ordered on: Ordered Future Order: Radiol ogy Order Echo 2D Color Doppler (TTE W/ Doppler, Complete) ([id number]), Collected on: , Sent on: Sent History [...] loss. Additional information: managed by [facility] oncology Dr. Vanegas HFU was admitted to [facility] with infected port and pneumonia HFU (comments) This visit was a virtual visit via [facility] to [facility] . 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 Follow Up of Hyperlipidemia Risk factors include [...] I'm on injections for that. doctor in [facility] had me on q2 wks and [...]
== END 2024-10-22 15:42 | disposition home or self-care (01) ==
LOC: HO.HCS 14:53
PROVIDERS: PCP Internal Medicine; Visit Provider Nurse Practitioner Family
DX: I42.9 Cardiomyopathy, unspecified (principal); I50.40 Unspecified combined systolic (congestive) and diastolic (congestive) heart failure; I44.2 Atrioventricular block, complete; Z95.0 Presence of cardiac pacemaker; I10 Essential (primary) hypertension
CPT/HCPCS: 99214

== ENCOUNTER → 2024-10-23 23:59 | Outpatient (BNV) | payer BC, SELFPAY ==
--- NOTE | 2024-10-30 14:53 | A.OFFVIS_ITS ---
Intake Visit Reasons: Remote HF monitoring- [employer] Allergies regadenoson [From Lexiscan] Adverse Reaction (Severe, Verified 10/26/24 10:52) seizure type activity PFSH Medical History Vitamin D deficiency Obesity (BMI 30-39.9) Pure hypercholesterolemia Benign essential hypertension Combined systolic and diastolic congestive heart failure Chronic kidney disease (CKD), stage III (moderate) Diabetic foot ulcer with osteomyelitis Complete heart block CHF (congestive heart failure) BPH (benign prostatic hyperplasia) Proteinuria Hyperlipidemia Essential hypertension Normally functioning cardiac pacemaker present Chronic right heart failure Heart block CKD (chronic kidney disease) Hypertension Type 2 diabetes mellitus Pacemaker Surgical History History of amputation of toe Type 2 diabetes mellitus with other diabetic kidney complication History of cardiac pacemaker (~04/15/20) Family History Mother CVA (cerebral vascular accident) Diabetes Social History Housing: Apartment Alcohol intake: never Patient Tobacco Use Status: Never used Tobacco Tobacco use type: Cigarette e-Cigarette/Vaping Use: Never Used Second Hand Smoke Exposure: Yes service: Yes Current occupational status: employed Cognitive needs: No Hearing needs: No Vision needs: No Office Procedures Cardiac Device Check Cardiac Device Check Details: Date of service- 10/23/2024 ; Battery life 60%; normal lead parameters; AP 25%; FUNERAL COUNSELOR 100%; no significant arrhythmias. Overall normal device function. [id number] Cardiac Device Interrogation, pacemaker Procedure code (CPT) selection complete Assessment & Plan Assessment & Plan (1) Normally functioning cardiac pacemaker present: Code(s): Z95.0 - Presence of cardiac pacemaker Category: Medical (2) Complete heart block: Comment: S/P pacemaker insertion on 04/15/2020 Code(s): I44.2 - Atrioventricular block, complete Category: Medical Plan x Coding Level of Care Code Procedure Only Diagnoses Normally functioning cardiac pacemaker present Z95.0 Complete heart block I44.2 CPT Codes Cardiac Device Check - Cardiac Device 12: [id number] Cardiac Device Interrogation, pacemaker ([id number])
== END ==
PROVIDERS: PCP Internal Medicine; Visit Provider Internal Medicine
DX: I44.2 Atrioventricular block, complete (principal); Z95.0 Presence of cardiac pacemaker
CPT/HCPCS: 93294

== ENCOUNTER → 2024-10-26 10:46 | Outpatient (AMB) | payer BC, SELFPAY ==
[2024-10-26 11:03] LABS: Glucose, Whole Blood 98 mg/dL (60-115)
== END | disposition home or self-care (01) ==
PROVIDERS: PCP Internal Medicine; Visit Provider Nurse Practitioner Adult Health
CPT/HCPCS: 99214

== ENCOUNTER → 2024-10-26 10:46 | Outpatient (BNVA) | payer BC, SELFPAY | PROVIDERS: PCP Internal Medicine; Visit Provider Nurse Practitioner Adult Health | DX: E11.29 Type 2 diabetes mellitus with other diabetic kidney complication (principal); E11.21 Type 2 diabetes mellitus with diabetic nephropathy; E11.40 Type 2 diabetes mellitus with diabetic neuropathy, unspecified | CPT/HCPCS: 82947 ==

== ENCOUNTER → 2024-11-09 23:59 | Outpatient (BNV) | payer BC, SELFPAY ==
--- NOTE | 2024-11-12 19:13 | MHC.OFFVIS ---
Intake Visit Reasons: Remote HF monitoring- [employer] Allergies regadenoson [From Lexiscan] Adverse Reaction (Severe, Verified 10/26/24 10:52) seizure type activity PFSH Medical History Vitamin D deficiency Obesity (BMI 30-39.9) Pure hypercholesterolemia Benign essential hypertension Combined systolic and diastolic congestive heart failure Chronic kidney disease (CKD), stage III (moderate) Diabetic foot ulcer with osteomyelitis Complete heart block CHF (congestive heart failure) BPH (benign prostatic hyperplasia) Proteinuria Hyperlipidemia Essential hypertension Normally functioning cardiac pacemaker present Chronic right heart failure Heart block CKD (chronic kidney disease) Hypertension Type 2 diabetes mellitus Pacemaker Surgical History History of amputation of toe Type 2 diabetes mellitus with other diabetic kidney complication History of cardiac pacemaker (~04/15/20) Family History Mother CVA (cerebral vascular accident) Diabetes Social History Housing: Apartment Alcohol intake: never Patient Tobacco Use Status: Never used Tobacco Tobacco use type: Cigarette e-Cigarette/Vaping Use: Never Used Second Hand Smoke Exposure: Yes service: Yes Current occupational status: employed Cognitive needs: No Hearing needs: No Vision needs: No Office Procedures Cardiac Device Check Cardiac Device Check Details: Date of service- 11/09/2024; based on impedance data and physiological variables, there is no evidence of worsening congestive heart failure. [id number] Cardiac Device Interrogation, cardio physiologic monitor Procedure code (CPT) selection complete Assessment & Plan Assessment & Plan (1) Normally functioning cardiac pacemaker present: Code(s): Z95.0 - Presence of cardiac pacemaker Category: Medical (2) Cardiomyopathy: Code(s): I42.9 - Cardiomyopathy, unspecified Category: Medical Plan x Coding Level of Care Code Procedure Only Diagnoses Normally functioning cardiac pacemaker present Z95.0 Cardiomyopathy I42.9 CPT Codes Cardiac Device Check - Cardiac Device 15: [id number] Cardiac Device Interrogation, cardio physiologic monitor ([id number])
== END ==
PROVIDERS: PCP Internal Medicine; Visit Provider Internal Medicine
DX: I42.9 Cardiomyopathy, unspecified (principal); Z95.0 Presence of cardiac pacemaker
CPT/HCPCS: 93297

== ENCOUNTER 2024-11-22 13:38 | Outpatient (AMB) | payer BC, SELFPAY ==
[2024-11-22 13:43] VITALS: BP 120/74; PULSE 103; O2SAT 97; BMI 36.5
--- NOTE | 2024-11-22 13:43 | HO.NEPHOV ---
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 Cell Efficiency Required: No Accompanied by: Self / Same As Patient Allergies regadenoson [From Lexiscan] Adverse Reaction (Severe, Verified 11/22/24 13:45) seizure type activity Medication List - Last Reconciled 11/22/24 by Seferino Liz MD alcohol swabs (BD Alcohol Swabs) 1 pad topical QID amlodipine 5 mg PO DAILY atorvastatin 20 mg PO BEDTIME 90 days blood sugar diagnostic (OneTouch Verio test strips) 1 strip miscellaneous TID 30 days blood sugar diagnostic (OneTouch Ultra Test strips) As directed -tests 4 X/day blood-glucose meter (MettlTouch Ultra2 Meter) As directed tests 4 X/day blood-glucose meter,continuous (FreeStyle Tish 3 [place]) As directed blood-glucose sensor (FreeStyle Tish 3 Sensor device) As directed bumetanide 2 mg PO BID 30 days carvedilol 12.5 mg PO BID cholecalciferol (vitamin D3) 50 mcg PO DAILY 90 days hydralazine 100 mg PO TID 90 days insulin glargine (Basaglar KwikPen U-100 Insulin) 10 units (0.1 mL) subcut QPM 30 days isosorbide mononitrate ER 60 mg PO DAILY 90 days lancets As directed lancets (MettlTouch UltraSoft Lancets) As directed-tests 4 X/day pen needle, diabetic As directed spironolactone 50 mg (2 x 25 mg) PO QAM tamsulosin 0.4 mg PO DAILY 90 days Trulicity (dulaglutide) 1.5 mg (0.5 mL) subcut QWEEK 30 days NS HPI Comments Details: 58-year-old man with a history of diabetes mellitus and hypertension is here for evaluation of CKD. h/o CHF Moderate systolic dysfunction RV pressures were OK NO significant proteinuria 11/22/24 Labetolol switched to Coreg Amlodipine doen to 5 mg QD NO new issues PFSH Medical History (Updated 11/22/24 @ 13:56 by Seferino Liz MD) Liver mass Vitamin D deficiency Obesity (BMI 30-39.9) Pure hypercholesterolemia Benign essential hypertension Combined systolic and diastolic congestive heart failure Chronic kidney disease (CKD), stage III (moderate) Diabetic foot ulcer with osteomyelitis Complete heart block CHF (congestive heart failure) BPH (benign prostatic hyperplasia) Proteinuria Hyperlipidemia Essential hypertension Normally functioning cardiac pacemaker present Chronic right heart failure Heart block CKD (chronic kidney disease) Hypertension Type 2 diabetes mellitus Pacemaker Surgical History History of amputation of toe Type 2 diabetes mellitus with other diabetic kidney complication History of cardiac pacemaker (~04/15/20) Family History Mother CVA (cerebral vascular accident) Diabetes Social History Housing: Apartment Alcohol intake: never Patient Tobacco Use Status: Never used Tobacco Tobacco use type: Cigarette e-Cigarette/Vaping Use: Never Used Second Hand Smoke Exposure: Yes service: Yes Current occupational status: employed Cognitive needs: No Hearing needs: No Vision needs: No Physical Exam Vital Signs: Last Vital Signs Pulse 103 H 11/22/24 13:43 BP 120/74 11/22/24 13:43 Pulse Ox 97 11/22/24 13:43 Oxygen Delivery Method Room Air 11/22/24 13:43 BMI result Body Mass Index 36.5 Awake. Comfortable. Neck is supple. Mucosa moist. Lungs bilateral scattered rhonchi. Heart S1-S2 heard no gallop. Abdomen soft. Extremities no edema. No involuntary movements. No myoclonus. Extrem General: Yes edema (Right > Left) Results Reviewed Nephrology Results: Hgb 12.8 g/dl (14.0-18.0) L 10/16/24 WBC 5.4 X10*3/uL (4.8-10.8) 10/16/24 Plt Count 271 X10*3/uL (160-400) 10/16/24 Sodium 138 mmol/L (135-145) 10/16/24 Potassium 4.2 mmol/L (3.3-5.1) 10/16/24 Chloride 106 mmol/L (96-108) 10/16/24 Carbon Dioxide 30 mmol/L (22-29) H 10/16/24 BUN 28 mg/dL (9-16) H 10/16/24 Creatinine 1.76 mg/dL (0.5-1.4) H 10/16/24 Calcium 9.2 mg/dL (8.4-10.2) 10/16/24 Urine Protein 30 (1+) mg/dL (Neg-Trace) H 10/16/24 Urine Creatinine 124.95 mg/dL 10/16/24 Assessment & Plan Assessment & Plan (1) Chronic kidney disease (CKD), stage III (moderate): Code(s): N18.30 - Chronic kidney disease, stage 3 unspecified Category: Medical Qualifiers: Chronic kidney disease stage 3 subtype: stage 3b (GFR 30-44) Qualified Code(s): N18.32 - Chronic kidney disease, stage 3b Plan Middle-aged man with longstanding diabetes mellitus with CKD. Quintin most likely has diabetic kidney disease. No significant proteinuria At this point the goal is to slow the progression of renal disease. Maintain A1c less than 7% and continue overt nephrotoxic agents including NSAIDs. We discussed importance of maintain blood pressure less than 130/80 mm Hg. He is on spironolactone for RAAS inhibition. Did not made any changes in his medications today. REnal sonogram: Kidneys were unremarkable Incidental Liver finding. CT abdomen was unremarkable except for gall stones Orders: Orders Basic Metabolic Panel 6 Months N18.32 - Chronic kidney disease, stage 3b Coding Level of Care Code Est Pt Level 4 (18811) Diagnoses Stage 3b chronic kidney disease N18.32 Chronic kidney disease stage 3 subtype: stage 3b (GFR 30-44)
--- OUTSIDE RECORDS SUMMARY | 2024-11-22 16:34 | XMS_ITS ---
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 Name Role Phone Quan RUCKER, [place] Primary Care Provider Unava ilCandy Rosario Unavailable [phone] Allergies No Known Allergies REASON FOR VISIT Skin problem(s), Open sore Medications Medication SIG (Take, Route, Frequency, Duration) Notes Start Date End Date Status Labetalol HCl 100 MG Oral for 90 Active Extra Depth Orthopedic Shoes (1 Pair) with Customized Heat Molded Multidensity Innersoles (3 Pair) as directed Dx: NIDDM/Polyneuropathy (E11.42), Hammertoe Foot Deformity (M20.41,M20.42), Preulcerative Skin Lesion(s) (L85.1 08/07/2024 Active Walking Boot/Pneumatic As directed Wear Daily for Until further notice 01/17/2024 Active Cephalexin 500 MG 1 capsule Orally Thr ee times a day for 10 days Active Tamsulosin HCl 0.4 MG Oral for 90 Active Bumetanide 2 MG TAKE 1 TABLET BY TWICE DAILY Oral for 90 Active Spironolactone 25 MG TAKE 2 TABLETS BY MOUTH EVERY MORNING Oral for 90 Active Atorvastatin Calcium 20 MG TAKE 1 TABLET BY MOUTH AT BEDTIME Oral for 90 Active amLODIPine Besylate 10 MG TAKE 1 TABLET BY MOUTH DAILY Oral for 90 Active Isosorbide Mononitrate ER 60 MG Oral for 90 Active Trulicity 0.75 MG/0.5ML Subcutaneous for 28 Active Vitamin D3 50 MCG (2000 UT) TAKE 1 CAPSULE BY MOUTH DAILY Oral for 90 E559,Unavaila ble Active hydrALAZINE HCl 100 MG TAKE 1 TABLET BY MOUTH THREE TIMES DAILY Oral for 90 Active OneTouch Ultra 2 w/Device USE DIRECTED TO TEST FOUR TIMES DAILY for 30 Active Social History Tobacco Use: Social History Observation Description Date Details (start date - stop date) Never Smoker NA - NA Tobacco Use/Smoking Question Answer Notes Are you a: nonsmoker Additional Findings: Tobacco Non-User Current no n-smoker Tobacco use other than smoking: Question Answer Notes Are you an other tobacco user? No Vital Signs Height 5ft9in in 11/13/2024 Weight 250 lbs 11/13/2024 BMI 36.91 kg/m2 11/13/2024 Blood pressure systolic 130 mm Hg 11/13/19 Blood pressure diastolic 90 mm Hg 025 Encounters Encounter Location Date Provider Diagnosis [facility] [address] [address] 11/13/2024 Candy Sandhu Charcot's joint of foot, right M14.671 ; Cellulitis of foot, left L03.116 ; Type 2 diabetes mellitus with diabetic polyneuropathy E11.42 ; Type 2 diabetes mellitus with Charcot's joint of right foot E11.610 ; Other hammer toe(s) (acquired), left foot M20.42 and Neuropathic ulcer 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 L97.522 Assessments Encounter Date Diagnosis (ICD Code) Assessment Notes Treatment Notes Treatment Clinical Notes Section Notes 11/13/2024 Charcot's joint of foot, right (ICD-10 - M14.671) 11/13/2024 Cellulitis of foot, left (ICD-10 - L03.116) 11/13/2024 Type 2 diabetes mellitus with diabetic polyneuropathy (ICD-10 - E11.42) 11/13/2024 Type 2 diabetes mellitus with Charcot's joint of right foot (ICD-10 - E11.610) 11/13/2024 Other hammer toe(s) (acquired), left foot (ICD-10 - M20.42) 11/13/2024 Neuropathic ulcer 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 (ICD-10 - L97.522) Plan Of Treatment Next Appt Details Follow Up: 2 Months, Reason: Provider Name:Candy ruiz, 02/01/2025 01:00:00 PM, [address] [place], [address], Procedure Notes * Category Sub-Category Detail Notes Debride skin and subQ Open wound NEUROPATHY : Physician of record performed open wound selective debridement of devitalized necrotic/nonviable soft tissue, fibrin, exudate, epidermis, dermis, thru skin and subcutaneous fat tissue, first 20 sq cm or less, using sharp dissection with sterile 15 blade, and/or tissue nippers. ANESTHESIA was not required due to presence of NEUROPATHY. Hemostasis was controlled through direct pressure. Sterile antibiotic dressing applied. Post debridement measurements: 21 mm x 20 mm x 3mm. Character of the wound post debridement is stable (07249)The patient was instructed on importance of proper wound care consisting of pressure reduction, maintainance of moist wound environment, and regular debridement of devitilized tissue, The patient is to cleanse the wound with warm soapy water/peroxide/saline or betadine BID based on product availability, The patient is to apply Alginate to the wound and cover with a DSD, The patient was instructed to change dressings according to orders or PRN saturation, leaks, The patient was instructed to monitor and report any signs or symptoms of infection or any untoward reactions, The patient is to cont the local wound care as directed, Progress Notes * Celio CHACONTrinidadOB:1965 (59 yo M)Acc No.[id number]:11/13/2024 Progress Notes Patient:?Quintin CHACON Provider:?Candy Sandhu DPM :1965???Age:59 Y???Sex:Male Santy e:11/13/2024 Address:[address] [place], [place] [id number] Pcp:Ronnell Glass MD Subjective: * Chief Complaints: * ???Skin problem(s)Open sore * HPI: ???Skin problems:?Nature:?redness , swelling , tenderOpen sore, odor.?Location:?Bottom Left, 1st, Toe(s), .?Duration:?a few weeks.?Onset/Cause:?unknown-likley due to boots and increased walking and snow shoveling.?Course:?improving, less redness and warmth of left foot.?Aggravated by:?standingwalking, any pressure, shoe gear, .?Treatments:?abx oint and bandaid, Mupiricin, Keflex, awaiting consults with KARRIE , Had appt with?[facility] wound care on11/10 and started using Alginate.?Misc:?Pt denies any N, V, F, C, change in blood sugars.? * ROS:?General/Constitutional:?Nausea?denies.?Vomiting?denies.?Hunger Thirst?denies.?Loss appetite?denies.?Chills?denies.?Fatigue?denies.?Fever?denies.?Night Sweats?denies.?Unexplained weight loss?denies.?Unexplained [...] than smoking?Are you an other tobacco user??No ???Miscellaneous:?Caffeine: yes, frequency:, 1-2 cups per day. ?Children: no. ?Exercise: yes, walking. ?Marital status: single. 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 * Medications:?TakingTrulicity 0.75 MG/0.5ML Solution Pen-injector Subcutaneous Vitamin D3 50 MCG (1999 UT) Capsule TAKE 1 CAPSULE BY MOUTH DAILY Oral , Notes to Pharmacist: Len,Concur [place] 2 w/Device Kit USE DIRECTED TO TEST [...] Oral Walking Boot/Pneumatic As directed Wear Daily Extra Depth Orthopedic Shoes (1 Pair) with Customized Heat Molded Multidensity Innersoles (3 Pair) as directed Dx: NIDDM/Polyneuropathy (E11.42), Hammertoe Foot Deformity (M20.41,M20.42), Preulcerative Skin Lesion(s) (L85.1 Cephalexin 500 MG Capsule 1 capsule Orally Three times a day Medication List reviewed and reconciled with the patientTaking Trulicity 0.75 MG/0.5ML Solution Pen-injector Subcutaneous Taking Vitamin D3 50 MCG (1999 UT) Capsule TAKE 1 CAPSULE BY MOUTH DAILY Oral , Notes to Pharmacist: [email or web address],UnavailableTaking OneVendly Ultra 2 w/Device Kit USE DIRECTED TO [...] Taking Walking Boot/Pneumatic As directed Wear Daily Taking Extra Depth Orthopedic Shoes (1 Pair) with Customized Heat Molded Multidensity Innersoles (3 Pair) as directed Dx: NIDDM/Polyneuropathy (E11.42), Hammertoe Foot Deformity (M20.41,M20.42), Preulcerative Skin Lesion(s) (L85.1 Taking Cephalexin 500 MG Capsule 1 capsule Orally Three times a day Medication List reviewed and reconciled with the patient * Allergies:?N.K.D.A.yes[Aller gies Verified] Objective: * Vitals:?Ht: 5ft9in, Wt:250, BMI:36.91, Shoe size: 13, BP:130/90mm Hg, BS: 130, Ht-cm: 175.26 cm, Wt-k.4 kg. * ???Past Orders: ???Lab:HEMOGLOBIN A1C (GLYCO HEMOGLOBIN) (Order Date - 09/19/2024) (Collection Date & Time - 09/19/2024 03:55 PM) ? Value Reference Range ?HEMOGLOBIN A1C % (HH) 6.2 * Examination: ???Ophthalmology Referral: ?DIABETES EYE EXAM?Procedure Performed:?No ?Eye Exam not performed:?No reason specified?Neurological: ?SENSORY:? (DM/Neuro) Neurological exam demonstrates reduced sharp/dull pin prick discrimination reduced light touch sensation reduced vibration sensation reduced proprioception sensation in a stocking fashion 5.07 monofilament test performed at plantar aspects of 5 varied sites per foot shows sensation plantar aspects absent at Forefoot B/L, Pt relates, anesthesia, B/L.?Dermatologic: ?SKIN FINDINGS:?Skin shows no?sign(s) of, localized cellulitis WITH lymphangitis extending proximally plantar TA.?ULCER:?LOCATION, plantar hallux LEFT, SIZE, 21?mm X 20 mm X 3mm, BASE, fibro-granular 85/15, RIM, hyperkeratotic, UNDERMINING, moderate, TRACKING, Sub Q with Fat layer exposed, does not probe to bone, DRAINAGE, serosanguineous, moderate, NECROTIC TISSUE, adherent, yellow/hayes slough, MALODOR, absent, CALOR, absent, ERYTHEMA, absent.?Vascular: ?DP PULSES (B):?1/4 , RIGHT , 2/4 , LEFT.?PT PULSES (B):?1/4?,?RIGHT?,?2/4?,?LEFT.?CAPILLARY FILL TIME:?4 secs. per digit.?TROPHIC CONDITION-TEXTURE/ELASTICITY/TURGOR/HAIR GROWTH (B):?decreased, B/L.?TEMPERTURE GRADIENT (C):?normal, warm to cool, proximal to distal, B/L.?PIGMENTATION:?brawny, B/L.?EDEMA (C):?2/4B/L, feet.?Orthopedic: ?MUSCLE STRENGTH:?5/5 all groups in a symmetrical fashion, B/L.?GAIT ABNORMALITY:?Pronated, abducted angle and base of gate.?FOOT MORPHOLOGY:?Prominent, painful 1st Met-Cuneiform joint without inflammation , Rigid medial/plantar protrusion of Midfoot at area of Navicular tuberosity , Pes Planus structure , (+) Charcot collapse/destruction noted at MTJ, rerarfoot and ankle?, RIGHT.?DIGITAL DEFORMITIES:?Amputation T9 , Digital contracture, PIPJ, 2-5 LEFT, 2-4 Right, non-reducible with WB or to push-up test, no over, nor underlapping, Digital contracture, IPJ TA incompl-reducible with WB or to push-up test, with evidence of shoe producing skin irritation, Reveals bulbous distal digit with inflammation TA.?FOOTWEAR:?worn, non-supportive, shoe gear properties exacerbate patient's foot/toe deformity, Non-Diabetic with no OT.?General Examination: ?GENERAL APPEARANCE:?Reveals a pleasant, alert, well nourished, well- developed, well hydrated individual, who demonstrates proper attention to hygiene/body habitus, and is in no acute distress, Pt serves as own historian for office visit todayDenies fever, chills, malaise, lymphadenopathy, .?ORIENTED:?person, place, and time.?FOOT EXAM:?Lower Extremity Neurological Exam performed:?Yes ?Visual exam of foot performed:?Yes ?Date?11/13/2024 ?Sensory testing performed:?sensations diminished ?Footwear Evaluation?Footwear Evaluation performed:?Yes??? Assessment: * Assessment: 1.?Charcot's joint of foot, right - M14.671???Specify :Acute problem, Complicated w/ Multiple Tx Options(4)???2.?Cellulitis of foot, left - L03.116 (Primary)???Specify :Response to treatment - Improvement???3.?Type 2 diabetes mellitus with diabetic polyneuropathy - E11.42???4.?Type 2 diabetes mellitus with Charcot's joint of right foot - E11.610???5.?Other hammer toe(s) (acquired), left foot - M20.42???Specify :Chronic problem, Worse, Severe (5)???6.?Neuropathic ulcer 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 - L97.522??? Plan: * Treatment: * Procedures:?Debride skin and subQ:?Open wound?NEUROPATHY: Physician of record performed open wound selective debridement of devitalized necrotic/nonviable soft tissue, fibrin, exudate, epidermis, dermis, thru skin and subcutaneous fat tissue, first 20 sq cm or less, using sharp dissection with sterile 15 blade, and/or tissue nippers. ANESTHESIA was not required due to presence of NEUROPATHY. Hemostasis was controlled through direct pressure. Sterile antibiotic dressing applied. Post debridement measurements: 21 mm x 20 mm x 3mm. Character of the wound post debridement is stable (53649)The patient was instructed on importance of proper wound care consisting of pressure reduction, maintainance of moist wound environment, and regular debridement of devitilized tissue, The patient is to cleanse the wound with warm soapy water/peroxide/saline or betadine BID based on product availability, The patient is to apply Alginate to the wound and cover with a DSD, The patient was instructed to change dressings according to orders or PRN saturation, leaks, The patient was instructed to monitor and report any signs or symptoms of infection or any untoward reactions, The patient is to cont the local wound care as directed,.? * Procedure Codes:?61983 DEBRI DE SKIN/TISSUE, Modifiers: XS * Preventive Medicine:? ??Counseling:?Discussion:?-13: Office or other outpatient visit for the evaluation and management of an established patient, which required a medically appropriate history and/or examination and LOW level of DECISION MAKING for: 1 STABLE ACUTE UNCOMPLICATED PROBLEM, 2 OR MORE MINOR PROBLEMS, OR 1 STABLE CHRONIC PROBLEM, THAT POSE(S) A LOW RISK FOR MORBIDITY/MORTALITY. The visit on the day of the [...] have encouraged the patient to call the office.?Cellulitis/Lymphangitis?Cellulitis improved, continue to monitor for any signs of infection.?Digital Treatment:?HT- I explained to the patient the [...] success were answered to their verbally confirmed satisfaction.?Ulcer:?A detailed plan of care was reviewed with the patient. We emphasized the fact that the patient takes on an active participating role in the treatment process and emphasized to them that they are an included, valued, and important member of the wound healing team in order to reach an expedient successful outcome. The patient agreed to follow their medically recommended diet while increasing their protein intake if safely able to do so, maintain proper bodily hydaration, abide by weight-bearing restrictions at all times, quit all current smoking habits if any, and diligently follow any/all dressing change instructions. It was clearly made known to the patient that if they fail to do their part, they will likely extend their course of treatment as well as possibly increase their risk of adverse events including amputation. The patient was instructed on importance of proper wound care consisting of pressure reduction, and proper maintainance of a moist wound environment. The patient is to cleanse the wound with warm soapy water/peroxide/saline, or betadine BID based on product availability. The patient is to apply Alginate to the wound and cover with a DSD as directed. The patient was instructed to change dressings according to orders, or PRN saturation, leaks. The patient was instructed to monitor and report any signs or symptoms of infection or any untoward reactions. Precautions Taken: Offloading/Pressure reduction via rest/ limited activity to essential to daily life only, cane/ crutches/ walker/ knee scooter/ wheel chair, shoe modification, accommodative padding, sharp debridement, and take/apply medication as directed. THE GOALS of wound debridement to remove devitilized tissue, decrease risk for infection, promote wound healing and prevent further complication were discussed/reviewed. Debridement frequency as indicated. Dispensed surgical shoe for pt to use to help reduce pressure to left hallux. Pt states the DM shoes were anout $200 and is unale to afford them at this time. I recommended pt limit WB activites. , ER: Discussed with the patient that if there is any worsening of the condition, then he/she is to report to the ER/EW for evaluation/treatment. The patient stated to fully understand the recommendations/instructions, PREVENTIVE STRATEGIES were reviewed with the patient to avoid recurrent ulceration. A set of verbal and written instructions regarding proper daily diabetic footcare techniques was discussed and dispensed. The patient is to pay close attention to skin hydration by maintaining proper moisturization through correct water consumption and consistent application of skin lotions/creams/ointments. They are also to perform regular visual and tactile foot inspections for any interruption in skin integrity including cracks, open lesions, and immediately report to the office any sign of infection such as redness/malodor/drainage/swelling. We discussed and recommended practices and procedures regarding regular shoe and insert evaluations for the presence of foreign bodies as well as for any irregular shoe or insert wear. We reinforced the importance for the patient to adhere to wearing their orthopedic shoes and pressure accommodative innersoles whenever walking. We stressed the significant value for the patient to remain consistent concerning their medically prescribed diet, participate in regular nonweight-bearing exercise (seated weights, exercise bike, or swimming), and keep their scheduled at risk foot care podiatric appointments. We also reviewed the possible role for additional Rx foot/leg bracing or surgical intervention when/if medically warranted, Continue treatment with [facility] wound care.? ??Screening/Special Tests:?Fall Risk?Screening:?No falls in the past year ?FALLS: Screening for Future Fall Risk?Have you had any falls with injury in the past year??No * Follow Up:?2 Months * Images: * Sign off status: Completed true * Provider:?Candy Sandhu, ARNIE Date:? Generated for Carine shaw/Negrito/Kassy on:?11/22/2024 04:34 PM EST History and Physical Notes * HPI (History of Present Illness) Category Sub-Category Detail Notes Category Not es Skin problems Nature: redness , swelling , tender Open sore, odor Location: Bottom Left, 1st, To e(s), Duration: a few weeks Onset/Cause: unknown-likley due t o boots and increased walking and snow shoveling Course: improving, less redn ess and warmth of left foot Aggravated by: standingwalking, any pressure, shoe gear, Treatments: abx oint and bandaid , Mupiricin, Keflex, awaiting consults with KARRIE , Had appt with [facility] wound care on11/10 and started using Alginate Misc: Pt denies any N, V, F, C, change in blood sugars Examination Category Sub-Category Detail Notes Category Not es Neurological SENSORY: (DM/Neuro) Neuro logical exam demonstrates reduced sharp/dull pin prick discrimination reduced light touch sensation reduced vibration sensation reduced proprioception sensation in a stocking fashion 5.07 monofilament test performed at plantar aspects of 5 varied sites per foot shows sensation plantar aspects absent at Forefoot B/L, Pt relates, anesthesia, B/L Dermatologic SKIN FINDINGS: Skin shows no si gn(s) of, localized cellulitis WITH lymphangitis extending proximally plantar TA ULCER: LOCATION, plantar choudhury llux LEFT, SIZE, 21 mm X 20 mm X 3mm, BASE, fibro- granular 85/15, RIM, hyperkeratotic, UNDERMINING, moderate, TRACKING, Sub Q with Fat layer exposed, does not probe to bone, DRAINAGE, serosanguineous, moderate, NECROTIC TISSUE, adherent, yellow/hayes slough, MALODOR, absent, CALOR, absent, ERYTHEMA, absent Orthopedic GAIT ABNORMALITY: Pronated, abducted angl e and base of gate FOOT MORPHOLOGY: Prominent, [...] or to push-up test, no over, nor underlapping, Digital contracture, IPJ TA incompl-reducible with WB or to push-up test, with evidence of shoe producing skin irritation, Reveals bulbous distal digit with inflammation TA MUSCLE STRENGTH: 5/5 all groups in a symmetrical fashion, B/L General Examination GENERAL APPEARANCE: Reveals a pleasant, alert, well nourished, well-developed, well hydrated individual, who demonstrates proper attention to hygiene/body habitus, and is in no acute distress, Pt serves as own historian for office visit todayDenies fever, chills, malaise, lymphadenopathy, FOOT EXAM: Lower Extremity Neurological Exa m performed:: Yes Visual exam of foot performed:: Yes Date: 11/13/2024 Sensory testing performed:: sensations d iminished ORIENTED: person, place, and t sylvia Footwear Evaluation Footwear Evaluation performe d:: Yes Ophthalmology Referral DIABETES EYE EXAM Procedure Perform ed:: No Eye Exam not performed:: No reason speci fied Vascular DP PULSES (B): 1/4 , RIGHT , 2/4 , LEFT PT PULSES (B): 1/4 , RIGHT , 2/4 , LEFT CAPILLARY FILL TIME: 4 secs. per digit TEMPERTURE GRADIENT (C): normal, warm to cool, proximal to distal, B/L TROPHIC CONDITION-TEXTURE/ELASTICITY/TURGOR/HAIR GROWTH (B): decreased, B/L EDEMA (C): 2/4B/L, feet PIGMENTATION: brawny, B/L
--- OUTSIDE RECORDS SUMMARY | 2024-11-22 16:34 | XMS_ITS ---
Author Organization [facility] [place] Address [address] [place] [address] Care Team Providers Care Patient Registration Rep Name Role Phone Quan RUCKER, [place] Primary Care Provider UnaCandy Smith Unavailable [phone] Allergies No Known Allergies REASON FOR VISIT Skin problem(s), Open sore Medications Medication SIG (Take, Route, Frequency, Duration) Notes Start Date End Date Status Atorvastatin Calcium 20 MG TAKE 1 TABLET BY MOUTH AT BEDTIME Oral for 90 Active Bumetanide 2 MG TAKE 1 TABLET BY TWICE DAILY Oral for 90 Active Spironolactone 25 MG TAKE 2 TABLETS BY MOUTH EVERY MORNING Oral for 90 Active amLODIPine Besylate 10 MG TAKE 1 TABLET BY MOUTH DAILY Oral for 90 Active Isosorbide Mononitrate ER 60 MG Oral for 90 Active Trulicity 0.75 MG/0.5ML Subcutaneous for 28 Active OneTouch Ultra 2 w/Device USE DIRECTED TO TEST FOUR TIMES DAILY for 30 Active Cephalexin 500 MG 1 capsule Orally Thr ee times a day for 10 days Active Vitamin D3 50 MCG (1999) TAKE 1 CAPSULE BY MOUTH DAILY Oral for 90 E559,Unavaila ble Active hydrALAZINE HCl 100 MG TAKE 1 TABLET BY MOUTH THREE TIMES DAILY Oral for 90 Active Tamsulosin HCl 0.4 MG Oral for 90 Active Walking Boot/Pneumatic As directed Wear Daily for Until further notice 01/17/2024 Active Labetalol HCl 100 MG Oral for 90 Active Extra Depth Orthopedic Shoes (1 Pair) with Customized Heat Molded Multidensity Innersoles (3 Pair) as directed Dx: NIDDM/Polyneuropathy (E11.42), Hammertoe Foot Deformity (M20.41,M20.42), Preulcerative Skin Lesion(s) (L85.1 08/07/2024 Active Social History Tobacco Use: Social History Observation Description Date Details (start date - stop date) Never Smoker NA - NA Tobacco Use/Smoking Question Answer Notes Are you a: nonsmoker Additional Findings: Tobacco Non-User Current no n-smoker Tobacco use other than smoking: Question Answer Notes Are you an other tobacco user? No Vital Signs Height 5ft9in in 11/06/2024 Weight 250 lbs 11/06/2024 BMI 36.91 kg/m2 11/06/2024 Blood pressure systolic 130 mm Hg 11/06/19 25 Blood pressure diastolic 90 mm Hg 025 Encounters Encounter Location Date Provider Diagnosis [facility] [place] [address] [place] [address] 11/06/2024 Candy Sandhu Charcot's joint of foot, right [...] Treatment Notes Treatment Clinical Notes Section Notes 11/06/2024 Charcot's joint of foot, right (ICD-10 - M14.671) 11/06/2024 Cellulitis of foot, left (ICD-10 - L03.116) 11/06/2024 Type 2 diabetes mellitus with diabetic polyneuropathy (ICD-10 - E11.42) 11/06/2024 Type 2 diabetes mellitus with Charcot's joint of right foot (ICD-10 - E11.610) 11/06/2024 Other hammer toe(s) (acquired), left foot (ICD-10 - M20.42) 11/06/2024 Neuropathic ulcer 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 (ICD-10 - L97.522) Plan Of Treatment Next Appt Details Follow Up: 1 Week, Reason: Provider Name:Candy ruiz, 02/01/2025 01:00:00 PM, [address] [place], [address], Procedure Notes * Category Sub-Category Detail Notes [...] Sterile antibiotic dressing applied. Post debridement measurements: 25 mm x 25 mm x 3mm. Character of the wound post debridement is stable (05517)The patient was instructed on importance of proper wound care consisting of pressure reduction, maintainance of moist wound environment, and regular debridement of devitilized tissue, The patient is to cleanse the wound with warm soapy water/peroxide/saline or betadine BID based on product availability, The patient is to apply Medihoney to the wound and cover with a DSD, The patient was instructed to change dressings according to orders or PRN saturation, leaks, The patient was instructed to monitor and report any signs or symptoms of infection or any untoward reactions, The patient is to cont the local wound care as directed, Progress Notes * Harris CHACONOB:1965 (59 yo M)Acc No.[id number]:11/06/2024 Progress Notes Patient:?Quintin CHACON Provider:?Candy Sandhu DPM :1965???Age:59 Y???Sex:Male Santy e:11/06/2024 Address:[address] [place], [place] [id number] Pcp:Ronnell Glass MD Subjective: * Chief Complaints: * ???Skin problem(s)Open sore * HPI: ???Skin problems:?Nature:?redness , swelling , tenderOpen sore, odor.?Location:?Bottom Left, 1st, Toe(s), .?Duration:?a few weeks.?Onset/Cause:?unknown-likley due to boots and increased walking and snow shoveling.?Course:?improved, less redness and warmth of left foot.?Aggravated by:?standingwalking, any pressure, shoe gear, .?Treatments:?abx oint and bandaid, Mupiricin, Keflex, awaiting consults with [facility] and [facility] wound care.?Misc:?Pt denies any N, V, F, C, change [...] ?Exercise: yes, walking. ?Marital status: single. 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 * Medications:?TakingTrulicity 0.75 MG/0.5ML Solution Pen-injector Subcutaneous Vitamin D3 50 MCG (2000 UT) Capsule TAKE 1 CAPSULE BY MOUTH DAILY Oral , Notes to Pharmacist: E559,[employer] 2 w/Device Kit USE DIRECTED TO TEST [...] DAILY Oral , Notes to Pharmacist: E559,UnavailableTaking SampleOn Inc Ultra 2 w/Device Kit USE DIRECTED TO [...] Pt relates, anesthesia, B/L.?Dermatologic: ?SKIN FINDINGS:?Skin shows approximately 75? percent LESS, sign(s) of, localized cellulitis WITH lymphangitis extending proximally plantar TA to the level of midfoot.?ULCER:?LOCATION, plantar hallux LEFT, SIZE, 25 mm X 25 mm X 3mm, BASE, fibro-granular 85/15, RIM, hyperkeratotic, UNDERMINING, moderate, TRACKING, Sub Q with Fat layer exposed, does not probe to bone, DRAINAGE, serosanguineous, moderate, NECROTIC TISSUE, adherent, yellow/hayes slough, MALODOR, less, CALOR, less, ERYTHEMA, less.?Vascular: ?DP PULSES (B):?1/4 , RIGHT , 2/4 [...] Exam performed:?Yes ?Visual exam of foot performed:?Yes ?Date?11/06/2024 ?Sensory testing performed:?sensations diminished ?Footwear Evaluation?Footwear Evaluation performed:?Yes??? Assessment: * Assessment: 1.?Cellulitis of foot, left - L03.116 (Primary)???Specify :Response to treatment - Improvement???2.?Charcot's joint of foot, right - M14.671???Specify :Acute problem, Complicated w/ Multiple Tx Options(4)???3.?Type 2 diabetes mellitus with diabetic polyneuropathy - [...] Sterile antibiotic dressing applied. Post debridement measurements: 25 mm x 25 mm x 3mm. Character of the wound post debridement is stable (76113)The patient was instructed on importance of proper wound care consisting of pressure reduction, maintainance of moist wound environment, and regular debridement of devitilized tissue, The patient is to cleanse the wound with warm soapy water/peroxide/saline or betadine BID based on product availability, The patient is to apply Medihoney to the wound and cover with a DSD, The patient was instructed to change dressings according to orders or PRN saturation, leaks, The patient was instructed to monitor and report any signs or symptoms of infection or any untoward reactions, The patient is to cont the local wound care as directed,.? * Procedure Codes:?95203 DEBRI DE SKIN/TISSUE, Modifiers: XS * Preventive Medicine:? ??Counseling:?Discussion:?-14: Office [...] have encouraged the patient to call the office.?Consult:?Pt awaiting consult with [facility] and wound care.?Cellulitis/Lymphangitis?Reviewed culture results, Complete, Rxed Abx, ER: Discussed with the patient that if there is any worsening of the condition, then he/she is to report to the ER/EW for evaluation/treatment. The patient stated to fully understand the recommendations/instructions, Given recent successful results to treatment, The patient is to continue the plan as directed.?Digital Treatment:?HT- I explained to the patient the [...] product availability. The patient is to apply Medihoney to the wound and cover with a [...] bracing or surgical intervention when/if medically warranted, Referral to Wound Care Center due to pedal risk of limb/life, [place] was contacted.? ??Screening/Special Tests:?Fall Risk?Screening:?No falls in the past year ?FALLS: Screening for Future Fall Risk?Have you had any falls with injury in the past year??No * Follow Up:?1 Week * Images: * Sign off status: Completed true * Provider:?Candy Sandhu DPM Date:? Generated for Carine shaw/Negrito/Kassy on:?11/22/2024 04:34 PM EST History and Physical Notes * HPI (History of Present Illness) Category Sub-Category Detail Notes Category Not es Skin problems Nature: redness , swelling , tender Open sore, odor Location: Bottom Left, 1st, To e(s), Duration: a few weeks Onset/Cause: unknown-likley due t o boots and increased walking and snow shoveling Course: improved, less redne ss and warmth of left foot Aggravated by: standingwalking, any pressure, shoe gear, Treatments: abx oint and bandaid , Mupiricin, Keflex, awaiting consults with [facility] and [facility] wound care Misc: Pt denies any N, V, F, [...] anesthesia, B/L Dermatologic SKIN FINDINGS: Skin shows appro ximately 75 percent LESS, sign(s) of, localized cellulitis WITH lymphangitis extending proximally plantar TA to the level of midfoot ULCER: LOCATION, plantar choudhury llux LEFT, SIZE, 25 mm X 25 mm X 3mm, BASE, fibro- granular 85/15, RIM, hyperkeratotic, UNDERMINING, moderate, TRACKING, Sub Q with Fat layer exposed, does not probe to bone, DRAINAGE, serosanguineous, moderate, NECROTIC TISSUE, adherent, yellow/hayes slough, MALODOR, less, CALOR, less, ERYTHEMA, less Orthopedic GAIT ABNORMALITY: Pronated, abducted angl e [...] Visual exam of foot performed:: Yes Date: 11/06/2024 Sensory testing performed:: sensations d iminished ORIENTED: [...]
--- OUTSIDE RECORDS SUMMARY | 2024-11-22 16:34 | XMS_ITS | Continuity of Care Document ---
Author Name [facility] Organization [facility] Care Team Providers Care Wire Frame Lamp Shade Maker Name Role Phone [facility] Unavailable Unavailable Immunizations Combined list of available immunizations from the Department of Defense and Veterans Affairs facilities. Immunization Series Date Given Administered By Site Reaction Lot Number CVX Code Drug News Reel Cameraman Status Comments Source INFLUENZA, SEASONAL, INJECTABLE 2017 [...] complet ed [facility] INFLUENZA, UNSPECIFIED FORMULATION 1996 Reynaldo BECK 88 complet ed [facility]
--- OUTSIDE RECORDS SUMMARY | 2024-11-22 16:34 | XMS_ITS | Clinical Summary ---
Author Organization [facility] Facility Address [address] [address] Care Team Providers Care Kst Operator Name Role Phone Ronnell Glass MD Primary Care Provider [phone] Medications amLODIPine (NORVASC) 10 MG tablet Take [...] to the 100-120s range today. -Diabetic diet -Dbrhc-sm-pmze checks with meals and at bedtime -Patient takes metformin 1000 mg twice daily which was held at admission First degree atrioventricular block 11/14/2020 Overview (11/14/2020): Last Assessment & Plan: EKG does show first-degree AV block with GA 310 ms. Bradycardic after clonidine. Echocardiogram was [...] % PVNMA 08/29/2020 us Rtama Conversion LAB [id number] LICITED RESULTS Final Result PVNMA from Last 3 Months or Most Recently Relevant to Health Maintenance Insurance [facility] Care Teams Kst Operator Relationship Specialty Start Date End Date Ronnell Glass MD [address] [place] [address] PCP - General 09/29/20
--- OUTSIDE RECORDS SUMMARY | 2024-11-22 16:34 | XMS_ITS ---
Author Organization [facility] Address [address] [place] [address] Care Team Providers Care Finishing Machine Tender Name Role Phone Quan RUCKER, [place] Primary Care Provider Unava ilable Candy Sandhu Unavailable [phone] REASON FOR VISIT Financial Waiver Encounters Encounter Location Date Provider Diagnosis [facility] [address] [address] 10/31/2024 Candy Sandhu Plan Of Treatment Next Appt Details Provider Name:Candy ruiz, 02/01/2025 01:00:00 PM, [address] [place], [address], Progress Notes * Harris CHACONOB:1965 (59 yo M)Acc No.[id number]:10/31/2024 Patient:?Quintin CHACON :1965???Age:59 Y???Sex:Male Address:[address] [place] [address], [address] * true * Date:? Generated for Printi ng/Fagracielag/eTransmitting on:?11/22/2024 04:34 PM EST
--- OUTSIDE RECORDS SUMMARY | 2024-11-22 16:35 | XMS_ITS | Patient Health Record ---
Author [facility] Address [address] [place] [address] Care Team Providers Care Commercial Airline Pilot Name Role Phone Quan RUCKER [place] Primary Care Provider Unava Candy Wells Unavailable [phone] Allergies No Known Allergies Results Component Value Reference Range Notes HEMOGLOBIN A1C (GLYCOHEMOGLO BIN) Reviewed date:10/30/2024 03:56:27 PM Interpretation: Performing Lab: Notes/Report: HEMOGLOBIN A1C % (HH) 6.2 HEMOGLOBIN A1C (GLYCOHEMOGLO BIN) Reviewed date:08/07/2024 03:45:31 PM Interpretation: Performing Lab: Notes/Report: TOTAL HEMOGLOBIN (HGBA1C) 6.7 Reason For Referral No Information Medications Medication SIG (Take, Route, Frequency, Duration) Notes Start Date End Date Status Trulicity 0.75 MG/0.5ML Subcutaneous for 28 Active Labetalol HCl 100 MG Oral for 90 Active Vitamin D3 [...] Daily for Until further notice 01/17/2024 Active Bumetanide 2 MG TAKE 1 TABLET BY TWICE DAILY Oral for 90 Active Spironolactone 25 MG TAKE 2 TABLETS BY MOUTH EVERY MORNING Oral for 90 Active hydrALAZINE HCl 100 MG TAKE 1 TABLET BY MOUTH THREE TIMES DAILY Oral for 90 Active OneTouch Ultra 2 w/Device USE DIRECTED TO TEST FOUR TIMES DAILY for 30 Active Cephalexin 500 MG 1 capsule Orally Thr ee times a day for 10 days Active Tamsulosin HCl 0.4 MG Oral for 90 Active Atorvastatin Calcium 20 MG TAKE 1 TABLET BY MOUTH AT BEDTIME Oral for 90 Active amLODIPine Besylate 10 MG TAKE 1 TABLET BY MOUTH DAILY Oral for 90 Active Isosorbide Mononitrate ER 60 MG Oral for 90 Active Immunizations Vaccine Route Administration Date Status [...] Problem Acquired hammer toe of right foot (181481077892226 5) Other hammer toe(s) (acquired), right foot (M20.41) Active confirmed Problem Acquired hammer toe of left foot (621018204447181 3) Other hammer toe(s) (acquired), left foot (M20.42) Active confirmed Problem 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 I (284046730) Type 1 diabetes mellitus with diabetic polyneuropathy (E10.42) Active confirmed Problem Polyneuropathy due to type 2 diabetes mellitus (774901402) Type 2 diabetes mellitus with diabetic polyneuropathy (E11.42) Active confirmed Problem 560922838 Hammertoe of left foot (M20.42) Active confirmed Problem 771528229 Hammertoe of right foot (M20.41) Active confirmed Problem 747835920895 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) Active confirmed Problem Neuropathic ulcer 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 (L97.522) Active confirmed Response to treatment Problem 409651531 Toe osteomyelitis, left (M86.9) Active confirmed Problem 894594125 Charcot's joint of foot, right (M14.671) Active confirmed Vital Signs Blood pressure diastolic 90 mm Hg 11/13/2024 Height 5ft9in in 11/13/2024 Blood pressure systolic 130 mm Hg 11/13/2024 Weight 250 lbs 11/13/2024 BMI 36.91 kg/m2 11/13/2024 Encounters Encounter Location Date Provider Diagnosis [address] [address] 01/17/2024 Candy Sandhu Type 2 diabetes mellitus with diabetic polyneuropathy E11.42 ; Charcot's joint of foot, right M14.671 ; Tinea unguium B35.1 ; Type 2 diabetes mellitus with Charcot's joint of right foot E11.610 ; Hammertoe of right foot M20.41 and Hammertoe of left foot M20.[address] [address] 03/27/2024 Candy Sandhu Type 2 diabetes mellitus with diabetic polyneuropathy E11.42 ; Charcot's joint of foot, right M14.671 ; Tinea unguium B35.1 ; Type 2 diabetes mellitus with Charcot's joint of right foot E11.610 ; Hammertoe of right foot M20.41 and Hammertoe of left foot M20.[address] [address] 08/07/2024 Candy Sandhu Type 2 diabetes mellitus with diabetic polyneuropathy E11.42 ; Charcot's joint of foot, right M14.671 ; Tinea unguium B35.1 ; Type 2 diabetes mellitus with Charcot's joint of right foot E11.610 ; Other hammer toe(s) (acquired), right foot M20.41 and Other hammer toe(s) (acquired), left foot M20.[address] [address] 10/30/2024 Candy Sandhu Charcot's joint of foot, right M14.671 ; Cellulitis of foot, left L03.116 ; Type 2 diabetes mellitus with diabetic polyneuropathy E11.42 ; Tinea unguium B35.1 ; Type 2 diabetes mellitus with Charcot's joint of right foot E11.610 ; Other hammer toe(s) (acquired), left foot M20.42 ; Neuropathic ulcer 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 L97.522 and Toe osteomyelitis, left M86.9 [facility] [address] [address] 11/06/2024 Candy Sandhu Charcot's joint of foot, right M14.671 ; Cellulitis of foot, left L03.116 ; Type 2 diabetes mellitus with diabetic polyneuropathy E11.42 ; Type 2 diabetes mellitus with Charcot's joint of right foot E11.610 ; Other hammer toe(s) (acquired), left foot M20.42 and Neuropathic ulcer 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 L97.522 [facility] [address] [address] 11/13/2024 Candy Sandhu Charcot's joint of foot, right M14.671 ; Cellulitis of foot, left L03.116 ; Type 2 diabetes mellitus with diabetic polyneuropathy E11.42 ; Type 2 diabetes mellitus with Charcot's joint of right foot E11.610 ; Other hammer toe(s) (acquired), left foot M20.42 and Neuropathic ulcer 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 L97.522 [facility] [address] [address] 10/30/2024 Candy Sandhu [facility] [address] [address] 01/11/2024 Candy Mckaya [facility] [address] [address] 01/18/2024 Candy Sandhu [facility] [address] [address] 06/06/2024 Candy Sandhu [facility] [address] [address] 10/22/2024 Candy Sandhu [facility] [address] [address] 10/30/2024 Candy Perica [facility] [address] [address] 10/30/2024 Candy Perica [facility] [address] [address] 10/30/2024 Candy Perica [facility] [address] [address] 10/30/2024 Candy Perica [facility] [address] [address] 10/31/2024 Candy Sandhu Assessments Encounter Date Diagnosis (ICD Code) Assessment Notes Treatment Notes Treatment Clinical Notes Section Notes 01/17/2024 Type 2 diabetes mellitus with diabetic polyneuropathy (ICD-10 - E11.42) 01/17/2024 Charcot's joint of foot, right (ICD-10 - M14.671) 03/27/2024 Type 2 diabetes mellitus with diabetic polyneuropathy (ICD-10 - E11.42) 08/07/2024 Type 2 diabetes mellitus with diabetic polyneuropathy (ICD-10 - E11.42) 10/30/2024 Cellulitis of foot, left (ICD-10 - L03.116) 10/30/2024 Charcot's joint of foot, right (ICD-10 - M14.671) 11/06/2024 Cellulitis of foot, left (ICD-10 - L03.116) 11/06/2024 Charcot's joint of foot, right (ICD-10 - M14.671) 11/13/2024 Charcot's joint of foot, right (ICD-10 - M14.671) 11/06/2024 Type 2 diabetes mellitus with diabetic polyneuropathy (ICD-10 - E11.42) 11/13/2024 Cellulitis of foot, left (ICD-10 - L03.116) 10/30/2024 Type 2 diabetes mellitus with diabetic polyneuropathy [...] joint of right foot (ICD-10 - E11.610) 10/30/2024 Tinea unguium (ICD-10 - B35.1) 11/13/2024 Type 2 diabetes mellitus with diabetic polyneuropathy (ICD-10 - E11.42) 11/06/2024 Type 2 diabetes mellitus with Charcot's joint of right foot (ICD-10 - E11.610) 11/13/2024 Type 2 diabetes mellitus with Charcot's joint of right foot (ICD-10 - E11.610) 11/06/2024 Other hammer toe(s) (acquired), left foot (ICD-10 - M20.42) 10/30/2024 Type 2 diabetes mellitus with Charcot's joint [...] toe(s) (acquired), left foot (ICD-10 - M20.42) 10/30/2024 Other hammer toe(s) (acquired), left foot (ICD-10 - M20.42) 11/06/2024 Neuropathic ulcer 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 (ICD-10 - L97.522) 11/13/2024 Other hammer toe(s) (acquired), left foot (ICD-10 - M20.42) 11/13/2024 Neuropathic ulcer 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 (ICD-10 - L97.522) 10/30/2024 Neuropathic ulcer 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 (ICD-10 - L97.522) Patient Educated with: WOUND CARE INSTRUCTIONS. pdf (WOUND CARE INSTRUCTIONS. pdf) 03/27/2024 Hammertoe of left foot (ICD-10 - M20.42) 10/30/2024 Toe osteomyelitis, left (ICD-10 - M86.9) Plan Of Treatment Pending Test Test Name Order Date MRI : Foot, left 10/30/2024 X ray : Foot, left 3V 10/30/2024 X ray : Foot, right 3V 01/17/2024 X ray : Ankle, right 3V 01/17/2024 Next Appt Details Provider Name:Candy ruiz, 02/01/2025 01:00:00 PM, [address] [place] [address], [address], Insurance Providers Payer Name Payer Address Payer Phone Subscriber Number Group Number Insured Name Patient Relationship to Insured Coverage Start Date Coverage End Date [facility] [address] [place] [address] [phone] [id number] Quintin Chacon Self - patient is the insured Medical (General) History Medical History History ICD Code type II diabetes Heart disease Chicken pox Pacemaker Surgical History Surgery Date(Month/Year) cardiac pacemeker 04/15/2020 amputation, right toe 12/23/2020
== END 2024-11-22 13:58 | disposition home or self-care (01) ==
PROVIDERS: PCP Internal Medicine; Visit Provider Internal Medicine Hypertension Specialist
DX: N18.32 Chronic kidney disease, stage 3b (principal)
CPT/HCPCS: 99214

== ENCOUNTER → 2024-11-22 13:38 | Outpatient (BNVA) | payer BC, SELFPAY | PROVIDERS: PCP Internal Medicine; Visit Provider Internal Medicine Hypertension Specialist ==

== ENCOUNTER 2024-12-07 13:26 | Outpatient (AMB) | payer BC, SELFPAY ==
--- NOTE | 2024-12-07 13:32 | MHC.OFFVIS ---
Vital Signs 12/07/24 13:33 Height 5 ft 9 in Weight 240 lb 4.862 oz BMI 35.5 BP 116/52 L Blood Pressure Location Rt brachial Position Sitting Pulse 69 Pulse Source Pulse Oximeter Intake Visit Reasons: new afib on monitor Ocular Care Technician Required: No Accompanied by: self Allergies regadenoson [From Lexiscan] Adverse Reaction (Severe, Verified 11/22/24 13:45) seizure type activity Medication List - Last Reconciled 12/07/24 by MADDIE King alcohol swabs (BD Alcohol Swabs) 1 pad topical QID amlodipine 5 mg PO DAILY apixaban (Eliquis) 5 mg PO BID atorvastatin 20 mg PO BEDTIME 90 days blood sugar diagnostic (OneTouch Verio test strips) 1 strip miscellaneous TID 30 days blood sugar diagnostic (OneTouch Ultra Test strips) As directed -tests 4 X/day blood-glucose meter (Bacchus VascularTouch Ultra2 Meter) As directed tests 4 X/day blood-glucose meter,continuous (FreeStyle Tish 3 Alex) As directed blood-glucose sensor (FreeStyle Tish 3 Sensor device) As directed bumetanide 2 mg PO BID 30 days carvedilol 12.5 mg PO BID cholecalciferol (vitamin D3) 50 mcg PO DAILY 90 days hydralazine 100 mg PO BID insulin glargine (Basaglar KwikPen U-100 Insulin) 10 units (0.1 mL) subcut QPM 30 days isosorbide mononitrate ER 60 mg PO DAILY 90 days lancets As directed lancets (Bacchus VascularTouch UltraSoft Lancets) As directed-tests 4 X/day pen needle, diabetic As directed spironolactone 50 mg (2 x 25 mg) PO QAM tamsulosin 0.4 mg PO DAILY 90 days Trulicity (dulaglutide) 1.5 mg (0.5 mL) subcut QWEEK 30 days NS HPI HPI new afib on monitor: Details: Quintin is a 59-year-old male past medical history of hypertension, hyperlipidemia, diabetes, chronic kidney disease, right heart failure, dual-chamber pacemaker, brief NSVT, recent echos showing EF 35-40%, who has recent remote monitoring of pacemaker shows atrial flutter. Today he reports that he has been feeling well overall. He says he does not feel any different in the last week than he did prior to that. He does not notice any heart palpitations. He has some mild fatigue which he relates to working full-time. No shortness of breath, PND, orthopnea or edema. No lightheadedness, presyncope, syncope. No bleeding issues reported. 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 He is taking his meds as directed. He did not start Eliquis yet because he wanted to wait until this visit. He follows with Dr. Liz for Nephrology. [facility] Medical History (Updated 12/07/24 @ 14:47 by MADDIE King) Liver mass Vitamin D deficiency Obesity (BMI 30-39.9) Pure hypercholesterolemia Benign essential hypertension Combined systolic and diastolic congestive heart failure Chronic kidney disease (CKD), stage III (moderate) Diabetic foot ulcer with osteomyelitis Complete heart block CHF (congestive heart failure) BPH (benign prostatic hyperplasia) Proteinuria Hyperlipidemia Essential hypertension Normally functioning cardiac pacemaker present Chronic right heart failure Heart block CKD (chronic kidney disease) Hypertension Type 2 diabetes mellitus Pacemaker Surgical History History of amputation of toe Type 2 diabetes mellitus with other diabetic kidney complication History of cardiac pacemaker (~04/15/20) Family History Mother CVA (cerebral vascular accident) Diabetes Social History Housing: Apartment Alcohol intake: never Patient Tobacco Use Status: Never used Tobacco Tobacco use type: Cigarette e-Cigarette/Vaping Use: Never Used Second Hand Smoke Exposure: Yes service: Yes Current occupational status: employed Cognitive needs: No Hearing needs: No Vision needs: No Review of Systems Const Denies chills, Denies fatigue, Denies fever(s), Denies weight gain and Denies weight loss ENT Denies dizziness Card Denies chest pain, Denies leg edema, Denies lightheadedness, Denies palpitations, Denies dyspnea on exertion, Denies orthopnea and Denies other Resp Denies cough and Denies dyspnea on exertion GI Denies hematochezia and Denies change in stool character Musc Denies abnormal gait, Denies muscle weakness, Denies numbness, Denies radiating pain into limb and Denies tingling Neuro Denies abnormal gait, Denies dizziness, Denies numbness and Denies tingling Endo Denies fatigue and Denies palpitations Physical Exam Vital Signs: Last Vital Signs Pulse 69 12/07/24 13:33 BP 116/52 L 12/07/24 13:33 BMI result Body Mass Index 35.5 Office Procedures EKG Details: Today, read by me, atrial flutter, ventricular paced, rate 69 [id number], Complete Assessment & Plan Assessment & Plan (1) Atrial flutter: Code(s): I48.92 - Unspecified atrial flutter Category: Medical Plan: New finding of atrial flutter on remote monitoring, which has been persistent, with controlled V rate for the last few days, asymptomatic. EKG today shows atrial flutter with V paced rhythm, rate 69. Spent time going over the diagnosis of atrial flutter, stroke risk with this rhythm, med management and treatment plan. Will continue on carvedilol 12.5 mg b.i.d.. Will have him start Eliquis 5 mg b.i.d.. I gave him coupons for free 1 month supply and 10 dollar co-pay card. Will continue to follow his rhythm on remote monitoring. Will check sleep study to evaluate for YANCI. Cardiology follow-up 1 month. If he remains in a flutter then cardioversion can be planned following 1 month of anticoagulation. (2) Cardiomyopathy: Code(s): I42.9 - Cardiomyopathy, unspecified Category: Medical Plan: History of heart failure with preserved EF, right-sided heart failure. Echo done 06/26/2020 showed normal EF. Echocardiogram was done on 09/28/2023 showing EF 35-40%, mild LVH. A repeat echocardiogram was done 10/12/2024 again showing EF 35-40%. He does not appear fluid overloaded on exam. He continues on Bumex 2 mg b.i.d. and Aldactone 50 mg daily. He is on carvedilol for neurohormonal modulation. He is not on Hamzah or Arb due to CKD. He is on hydralazine and isosorbide. On last visit and today I reviewed the need for cardiac catheterization to evaluate for obstructive CAD. He is still not ready to make a decision. Risks of the procedure including JULIA discussed with him again and he states understanding. He is instructed to call this office if he agrees to follow through with cardiac catheterization. (3) Combined systolic and diastolic congestive heart failure: Code(s): I50.40 - Unspecified combined systolic (congestive) and diastolic (congestive) heart failure Category: Medical Qualifiers: Heart failure chronicity: unspecified Qualified Code(s): I50.40 - Unspecified combined systolic (congestive) and diastolic (congestive) heart failure Plan: Stable at present. Signs and symptoms of heart failure reviewed with him. He states full understanding. (4) Complete heart block: Comment: S/P pacemaker insertion on 04/15/2020 Code(s): I44.2 - Atrioventricular block, complete Category: Medical Plan: History of complete heart block. Has Biotronik dual-chamber pacemaker in place. Functioning normally on last office interrogation, 07/23/2024. Does have remote monitoring in use as well. Next office interrogation due around January 2025 (5) Normally functioning cardiac pacemaker present: Code(s): Z95.0 - Presence of cardiac pacemaker Category: Medical Plan: As above (6) Essential hypertension: Code(s): I10 - Essential (primary) hypertension Category: Medical Plan: As above (7) Hypersomnia: Code(s): G47.10 - Hypersomnia, unspecified Category: Medical Plan: Ordering sleep study Plan Time spent on chart review, documentation, interview and assessment Orders: Orders RT home sleep study Today G47.10 - Hypersomnia, unspecified Coding Level of Care Code Est Pt Level 4 (12818) Complex EM visit Add On G2211 Diagnoses Atrial flutter I48.92 Cardiomyopathy I42.9 Combined systolic and diastolic congestive heart failure, unspecified HF chronicity I50.40 Heart failure chronicity: unspecified Complete heart block I44.2 Normally functioning cardiac pacemaker present Z95.0 Essential hypertension I10 Hypersomnia G47.10 CPT Codes EKG - CPT: 18696-Lzvdqqfvlewaraulz, Complete ([id number]) Time Spent (min) 36
[2024-12-07 13:33] VITALS: BP 116/52; PULSE 69; BMI 35.5
--- OUTSIDE RECORDS SUMMARY | 2024-12-07 15:46 | XMS_ITS ---
Author Organization [facility] [place] Address [address] [facility] [place] [address] Care Team Providers Care Product Introduction Manager Name Role Phone Quan RUCKER, [place] Primary Care Provider UnaCandy Smith Unavailable [phone] Allergies No Known Allergies REASON FOR VISIT [...] 025 Encounters Encounter Location Date Provider Diagnosis [facility] [place] [address] [place] [address] 11/06/2024 Candy Sandhu Charcot's joint of foot, [...] Provider Name:Candy ruiz, 02/01/2025 01:00:00 PM, [address] [place], [address], Procedure Notes * Category Sub-Category Detail Notes [...] of the wound post debridement is stable (65063)The patient was instructed on importance of proper [...] Notes * Harris CHACONOB:1965 (59 yo M)Acc No.[id number]:11/06/2024 Progress Notes Patient:?Quintin CHACON Provider:?Candy Sandhu DPM :1965???Age:59 Y???Sex:Male Santy e:11/06/2024 Address:[address] [place], [place] [id number] Pcp:Ronnell Glass MD Subjective: * Chief Complaints: * ???Skin problem(s)Open sore * HPI: ???Skin problems:?Nature:?redness , swelling , tenderOpen sore, odor.?Location:?Bottom Left, 1st, Toe(s), .?Duration:?a few weeks.?Onset/Cause:?unknown-likley due to boots and increased walking and snow shoveling.?Course:?improved, less redness and warmth of left foot.?Aggravated by:?standingwalking, any pressure, shoe gear, .?Treatments:?abx oint and bandaid, Mupiricin, Keflex, awaiting consults with [facility] wound care.?Misc:?Pt denies any N, V, F, [...] ?Exercise: yes, walking. ?Marital status: single. 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 * Medications:?TakingTrulicity 0.75 MG/0.5ML Solution Pen-injector Subcutaneous Vitamin D3 50 MCG (2000 UT) Capsule TAKE 1 CAPSULE BY MOUTH DAILY Oral , Notes to Pharmacist: E559,TicketStumbler 2 w/Device Kit USE DIRECTED TO TEST [...] DAILY Oral , Notes to Pharmacist: E559,UnavailableTaking Adormo Ultra 2 w/Device Kit USE DIRECTED TO [...] of the wound post debridement is stable (04676)The patient was instructed on importance of proper [...] local wound care as directed,.? * Procedure Codes:?96702 DEBRI DE SKIN/TISSUE, Modifiers: XS * Preventive [...] Center due to pedal risk of limb/life, [facility] was contacted.? ??Screening/Special Tests:?Fall Risk?Screening:?No falls in the past year ?FALLS: Screening for Future Fall Risk?Have you had any falls with injury in the past year??No * Follow Up:?1 Week * Images: * Sign off status: Completed true * Provider:?Candy Sandhu DPM Date:? Generated for Carine shaw/Negrito/Kassy on:?12/07/2024 03:46 PM EDT History and Physical Notes * HPI (History [...] bandaid , Mupiricin, Keflex, awaiting consults with [facility] wound care Misc: Pt denies any N, [...]
--- OUTSIDE RECORDS SUMMARY | 2024-12-07 15:46 | XMS_ITS ---
Author Organization [facility] Address [address] [place] [address] Care Team Providers Care Hairspring Adjuster Name Role Phone Quan RUCKER, [place] Primary Care Provider Unava ilable Candy Sandhu Unavailable [phone] REASON FOR VISIT Financial Waiver Encounters Encounter Location Date Provider Diagnosis [facility] [address] [address] 10/31/2024 Candy Sandhu Plan Of Treatment Next Appt Details Provider Name:Candy ruiz, 02/01/2025 01:00:00 PM, [address] [place], [address], Progress Notes * Harris CHACONOB:1965 (59 yo M)Acc No.[id number]:10/31/2024 Patient:?Quintin CHACON :1965???Age:59 Y???Sex:Male Address:[address] [place] [address], [address] * true * Date:? Generated for Printi ng/Faxing/eTransmitting on:?12/07/2024 03:46 PM EDT
--- OUTSIDE RECORDS SUMMARY | 2024-12-07 15:46 | XMS_ITS | Continuity of Care Document ---
Author Name [facility] Organization [facility] Care Team Providers Care Farm Or Ranch Animal Caretaker Name Role Phone [facility] Unavailable Unavailable Immunizations Combined list of available immunizations from the Department of Defense and Veterans Affairs facilities. Immunization Series Date Given Administered By Site Reaction Lot Number CVX Code Drug Airport Engineer Status Comments Source INFLUENZA, SEASONAL, INJECTABLE 2017 [...] complet ed [facility] INFLUENZA, UNSPECIFIED FORMULATION 1996 Reynaldo BECK 88 complet ed [facility]
--- OUTSIDE RECORDS SUMMARY | 2024-12-07 15:46 | XMS_ITS ---
Author Organization [facility] [place] Address [address] [place] [address] Care Team Providers Care State Attorney Name Role Phone Quan RUCKER, [place] Primary Care Provider Unava ilCandy Rosario Unavailable [phone] Allergies No Known Allergies REASON FOR VISIT [...] 025 Encounters Encounter Location Date Provider Diagnosis [facility] [address] [address] 11/13/2024 Candy Sandhu Charcot's joint of foot, [...] Provider Name:Candy ruiz, 02/01/2025 01:00:00 PM, [address] [place], [address], Procedure Notes * Category Sub-Category Detail Notes [...] of the wound post debridement is stable (41633)The patient was instructed on importance of proper [...] Notes * Celio CHACONTrinidadOB:1965 (59 yo M)Acc No.[id number]:11/13/2024 Progress Notes Patient:?Quintin CHACON Provider:?Candy Sandhu DPM :1965???Age:59 Y???Sex:Male Santy e:11/13/2024 Address:[address] [place], [place] [phone] Pcp:Ronnell Glass MD Subjective: * Chief Complaints: * ???Skin problem(s)Open sore * HPI: ???Skin problems:?Nature:?redness , swelling , tenderOpen sore, odor.?Location:?Bottom Left, 1st, Toe(s), .?Duration:?a few weeks.?Onset/Cause:?unknown-likley due to boots and increased walking and snow shoveling.?Course:?improving, less redness and warmth of left foot.?Aggravated by:?standingwalking, any pressure, shoe gear, .?Treatments:?abx oint and bandaid, Mupiricin, Keflex, awaiting consults with [facility] , Had appt with?[facility] wound care on11/10 and started using Alginate.?Misc:?Pt [...] ?Exercise: yes, walking. ?Marital status: single. 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 * Medications:?TakingTrulicity 0.75 MG/0.5ML Solution Pen-injector Subcutaneous Vitamin D3 50 MCG (1999 UT) Capsule TAKE 1 CAPSULE BY MOUTH DAILY Oral , Notes to Pharmacist: Len,[employer] 2 w/Device Kit USE DIRECTED TO TEST [...] DAILY Oral , Notes to Pharmacist: E5Danny,UnavailableTaking OneEnthrill Distribution Ultra 2 w/Device Kit USE DIRECTED TO [...] of the wound post debridement is stable (37880)The patient was instructed on importance of proper [...] local wound care as directed,.? * Procedure Codes:?53424 DEBRI DE SKIN/TISSUE, Modifiers: XS * Preventive [...] intervention when/if medically warranted, Continue treatment with [facility] wound care.? ??Screening/Special Tests:?Fall Risk?Screening:?No falls in the past year ?FALLS: Screening for Future Fall Risk?Have you had any falls with injury in the past year??No * Follow Up:?2 Months * Images: * Sign off status: Completed true * Provider:?Candy Sandhu, DPMindy Date:? Generated for Carine shaw/Negrito/Kassy on:?12/07/2024 03:46 [...] consults with [facility] , Had appt with [facility] wound care on11/10 and started using Alginate [...]
--- OUTSIDE RECORDS SUMMARY | 2024-12-07 15:46 | XMS_ITS | Clinical Summary ---
Author Organization [facility] Address [address] [address] Care Team Providers Care Savings Counselor Name Role Phone Ronnell Glass MD Primary Care Provider [phone] Medications amLODIPine (NORVASC) 10 MG tablet Take [...] to the 100-120s range today. -Diabetic diet -Zsuhb-gk-ngnk checks with meals and at bedtime -Patient takes metformin 1000 mg twice daily which was held at admission First degree atrioventricular block 11/14/2020 Overview (11/14/2020): Last Assessment & Plan: EKG does show first-degree AV block with CT 310 ms. Bradycardic after clonidine. Echocardiogram was [...] % PVNMA 08/29/2020 us Rtama Conversion LAB [id number] LICITED RESULTS Final Result PVNMA from Last 3 Months or Most Recently Relevant to Health Maintenance Insurance [facility] Care Teams Savings Counselor Relationship Specialty Start Date End Date Ronnell Glass MD [address] [place] [address] PCP - General 09/29/20
--- OUTSIDE RECORDS SUMMARY | 2024-12-07 15:47 | XMS_ITS | Patient Health Record ---
Author Organization [facility] Address [address] [facility] [place] [address] Care Team Providers Care Founder Ceo & President Name Role Phone Quan RUCKER [place] Primary Care Provider Unava Candy [place] Unavailable [phone] Allergies No Known Allergies Results Component Value Reference Range Notes HEMOGLOBIN A1C (GLYCOHEMOGLO BIN) Reviewed date:08/07/2024 03:45:31 PM Interpretation: Performing Lab: Notes/Report: TOTAL HEMOGLOBIN (HGBA1C) 6.7 HEMOGLOBIN A1C (GLYCOHEMOGLO BIN) Reviewed date:10/30/2024 03:56:27 PM Interpretation: Performing Lab: Notes/Report: HEMOGLOBIN A1C % (HH) 6.2 Reason For Referral No Information Medications Medication [...] Problem Acquired hammer toe of right foot (544868439971599 5) Other hammer toe(s) (acquired), right foot (M20.41) Active confirmed Problem Acquired hammer toe of left foot (531058444898658 3) Other hammer toe(s) (acquired), left foot (M20.42) Active confirmed Problem 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 I (726524941) Type 1 diabetes mellitus with diabetic polyneuropathy (E10.42) Active confirmed Problem Polyneuropathy due to type 2 diabetes mellitus (522564451) Type 2 diabetes mellitus with diabetic polyneuropathy (E11.42) Active confirmed Problem 596243215 Hammertoe of left foot (M20.42) Active confirmed Problem 156171342 Hammertoe of right foot (M20.41) Active confirmed Problem 368932270247 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) Active confirmed Problem Neuropathic ulcer 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 (L97.522) Active confirmed Response to treatment Problem 876351673 Toe osteomyelitis, left (M86.9) Active confirmed Problem 255902086 Charcot's joint of foot, right (M14.671) Active confirmed Vital Signs Blood pressure diastolic 90 mm Hg 11/13/2024 Height 5ft9in in 11/13/2024 Blood pressure systolic 130 mm Hg 11/13/2024 Weight 250 lbs 11/13/2024 BMI 36.91 kg/m2 11/13/2024 Encounters Encounter Location Date Provider Diagnosis [address] [address] 01/17/2024 Candy Sandhu Type 2 diabetes mellitus with diabetic polyneuropathy E11.42 ; Charcot's joint of foot, right M14.671 ; Tinea unguium B35.1 ; Type 2 diabetes mellitus with Charcot's joint of right foot E11.610 ; Hammertoe of right foot M20.41 and Hammertoe of left foot M20.[address] [address] 03/27/2024 Candy Sandhu Type 2 diabetes mellitus with diabetic polyneuropathy E11.42 ; Charcot's joint of foot, right M14.671 ; Tinea unguium B35.1 ; Type 2 diabetes mellitus with Charcot's joint of right foot E11.610 ; Hammertoe of right foot M20.41 and Hammertoe of left foot M20.[address] [address] 08/07/2024 Candy Sandhu Type 2 diabetes mellitus with diabetic polyneuropathy E11.42 ; Charcot's joint of foot, right M14.671 ; Tinea unguium B35.1 ; Type 2 diabetes mellitus with Charcot's joint of right foot E11.610 ; Other hammer toe(s) (acquired), right foot M20.41 and Other hammer toe(s) (acquired), left foot M20.[address] [address] 10/30/2024 Candy Sandhu Charcot's joint of foot, [...] exposed L97.522 and Toe osteomyelitis, left M86.9 [facility] [address] [address] 11/06/2024 Candy Sandhu Charcot's joint of foot, right M14.671 ; Cellulitis of foot, left L03.116 ; Type 2 diabetes mellitus with diabetic polyneuropathy E11.42 ; Type 2 diabetes mellitus with Charcot's joint of right foot E11.610 ; Other hammer toe(s) (acquired), left foot M20.42 and Neuropathic ulcer 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 L97.522 [facility] [address] [address] 11/13/2024 Candy Sandhu Charcot's joint of foot, right M14.671 ; Cellulitis of foot, left L03.116 ; Type 2 diabetes mellitus with diabetic polyneuropathy E11.42 ; Type 2 diabetes mellitus with Charcot's joint of right foot E11.610 ; Other hammer toe(s) (acquired), left foot M20.42 and Neuropathic ulcer 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 L97.522 [facility] [address] [address] 10/30/2024 Candy Sandhu [facility] [address] [address] 01/11/2024 Candy Mckaya [facility] [address] [address] 01/18/2024 Candy Sandhu [facility] [address] [address] 06/06/2024 Candy Sandhu [facility] [address] [address] 10/22/2024 Candy Sandhu [facility] [address] [address] 10/30/2024 Candy Perica [facility] [address] [address] 10/30/2024 Candy Perica [facility] [address] [address] 10/30/2024 Candy Perica [facility] [address] [address] 10/30/2024 Candy Perica [facility] [address] [address] 10/31/2024 Candy Sandhu Assessments Encounter Date Diagnosis [...] Details Provider Name:Candy ruiz, 02/01/2025 01:00:00 PM, [address] [place] [address], [address], Insurance Providers Payer Name Payer Address Payer Phone Subscriber Number Group Number Insured Name Patient Relationship to Insured Coverage Start Date Coverage End Date [facility] [id number] [place] [address] [id number] Quintin Chacon Self - patient is the insured Medical (General) History Medical History History ICD Code type II diabetes Heart disease Chicken pox Pacemaker Surgical History Surgery Date(Month/Year) cardiac pacemeker 04/15/2020 amputation, right toe 12/23/2020
== END 2024-12-07 14:21 | disposition home or self-care (01) ==
LOC: HO.HCS 13:26
PROVIDERS: PCP Internal Medicine; Visit Provider Nurse Practitioner Family
DX: I48.92 Unspecified atrial flutter (principal); I42.9 Cardiomyopathy, unspecified; I50.40 Unspecified combined systolic (congestive) and diastolic (congestive) heart failure; I44.2 Atrioventricular block, complete; Z95.0 Presence of cardiac pacemaker; I10 Essential (primary) hypertension; G47.10 Hypersomnia, unspecified
CPT/HCPCS: 93010; 99214

== ENCOUNTER → 2024-12-07 13:26 | Outpatient (BNVA) | payer BC, SELFPAY | PROVIDERS: PCP Internal Medicine; Visit Provider Nurse Practitioner Family | DX: I13.0 Hypertensive heart and chronic kidney disease with heart failure and stage 1 through stage 4 chronic kidney disease, or unspecified chronic kidney disease (principal); E11.22 Type 2 diabetes mellitus with diabetic chronic kidney disease; E78.5 Hyperlipidemia, unspecified; N18.9 Chronic kidney disease, unspecified; I48.92 Unspecified atrial flutter; I42.9 Cardiomyopathy, unspecified; I50.40 Unspecified combined systolic (congestive) and diastolic (congestive) heart failure; I44.2 Atrioventricular block, complete; G47.10 Hypersomnia, unspecified; Z95.0 Presence of cardiac pacemaker | CPT/HCPCS: 93005 ==

== ENCOUNTER 2024-12-25 13:00 | Outpatient (RCR) | payer BC, SELFPAY | END 2025-02-06 14:16 | disposition home or self-care (01) | LOC: HO.WCC 13:00 | PROVIDERS: PCP Internal Medicine; Visit Provider Surgery | DX: E11.621 Type 2 diabetes mellitus with foot ulcer (principal); L97.522 Non-pressure chronic ulcer of other part 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; L84 Corns and callosities; Z79.85 Long-term (current) use of injectable non-insulin antidiabetic drugs; Z79.899 Other long term (current) drug therapy | CPT/HCPCS: 11042; 99212; 99213 ==

== ENCOUNTER 2025-01-02 11:22 | Outpatient (REF) | payer BC, SELFPAY ==
[2025-01-02 11:42] LABS: MANUAL DIFF FLAG NO
[2025-01-02 12:00] LABS: Basophils Absolute Auto 0.1 X10*3/uL (0.0-0.2); Basophils Percent Auto 0.8 % (0-2); Eosinophils Absolute Auto 0.1 X10*3/uL (0.0-0.4); Eosinophils Percent Auto 1.5 % (0-4); Hematocrit 36.2 % (42.0-52.0); Hemoglobin 11.7 g/dl (14.0-18.0); Imm Gran Abs Auto 0.03 X10*3/uL (0.00-0.03); Imm Gran Pct Auto 0.5 % (0.0-0.4); Lymphocytes Absolute Auto 1.1 X10*3/uL (1.2-4.9); Lymphocytes Percent Auto 17.9 % (20-40); Mean Corpuscular HGB Conc 32.3 g/dl (31.0-36.0); Mean Corpuscular Hemoglobin 26.3 pg (27.0-33.0); Mean Corpuscular Volume 81.3 fL (80.0-98.0); Monocytes Absolute Auto 0.5 X10*3/uL (0.1-1.2); Monocytes Percent Auto 8.8 % (2-11); Neutrophils Absolute Auto 4.3 x10*3/uL (2.0-8.3); Neutrophils Percent Auto 70.5 % (45-73); Platelet Count 203 X10*3/uL (160-400); Red Blood Count 4.45 X10*6/uL (4.60-5.80); White Blood Count 6.1 X10*3/uL (4.8-10.8)
[2025-01-02 12:10] LABS: Appearance Urine Clear; Color Urine Yellow; Glucose Urine UA Negative (Negative); Leukocyte Esterase Urine Negative (Negative); Nitrite Urine Negative (Negative); PH 6.5 (5.0-9.0); Specific Gravity - Urine <= 1.005 (1.005-1.025); Urine Blood Negative (Negative); Urine Ketones Negative (Negative); Urine Protein Negative (Neg-Trace)
[2025-01-02 12:12] LABS: INTERNATIONAL NORM RATIO 1.1 (0.9-1.1); Prothrombin Time 12.7 SEC (10.9-12.4)
[2025-01-02 12:51] LABS: Anion Gap 7 (12-20); Blood Urea Nitrogen 26 mg/dL (9-16); Calcium 9.1 mg/dL (8.4-10.2); Carbon Dioxide 29 mmol/L (22-29); Chloride 109 mmol/L (96-108); Estimated Glomerular Filt Rate 45; Glucose Random 112 mg/dL (60-115); Potassium 4.1 mmol/L (3.3-5.1); Sodium 141 mmol/L (135-145)
--- OUTSIDE RECORDS SUMMARY | 2025-01-02 13:49 | XMS_ITS | Continuity of Care Document ---
Author Name [facility] Organization [facility] Care Team Providers Care Pattern Marking Supervisor Name Role Phone [facility] Unavailable Unavailable Immunizations Combined list of available immunizations from the Department of Defense and Veterans Affairs facilities. Immunization Series Date Given Administered By Site Reaction Lot Number CVX Code Drug Spark Tester Status Comments Source INFLUENZA, SEASONAL, INJECTABLE 2017 [...] complet ed [facility] INFLUENZA, UNSPECIFIED FORMULATION 1996 Reynaldo BECK 88 complet ed [facility]
--- OUTSIDE RECORDS SUMMARY | 2025-01-02 13:49 | XMS_ITS | Patient Health Record ---
Author Organization [facility] Address [address] [facility] [address] Care Team Providers Care Funds Development Director Name Role Phone Quan RUCKER [place] Primary Care Provider Unava Candy [place] Unavailable [phone] Allergies No Known Allergies Results Component Value [...] Problem Acquired hammer toe of right foot (866753714859103 5) Other hammer toe(s) (acquired), right foot (M20.41) Active confirmed Problem Acquired hammer toe of left foot (976220022103727 3) Other hammer toe(s) (acquired), left foot (M20.42) Active confirmed Problem 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 I (450629884) Type 1 diabetes mellitus with diabetic polyneuropathy (E10.42) Active confirmed Problem Polyneuropathy due to type 2 diabetes mellitus (682620839) Type 2 diabetes mellitus with diabetic polyneuropathy (E11.42) Active confirmed Problem 151163137 Hammertoe of left foot (M20.42) Active confirmed Problem 607843224 Hammertoe of right foot (M20.41) Active confirmed Problem 891411459591 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) Active confirmed Problem Neuropathic ulcer 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 (L97.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) Active confirmed Response to treatment Problem 688585282 Toe osteomyelitis, 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) Active confirmed Problem 831940049 Charcot's joint of foot, right (M14.671) Active confirmed Vital Signs Blood pressure diastolic 90 mm Hg 11/13/2024 Height 5ft9in in 11/13/2024 Blood pressure systolic 130 mm Hg 11/13/2024 Weight 250 lbs 11/13/2024 BMI 36.91 kg/m2 11/13/2024 Encounters Encounter Location Date Provider Diagnosis [address] [address] 01/17/2024 Candy Sandhu Type 2 diabetes mellitus with diabetic polyneuropathy E11.42 ; Charcot's joint of foot, right M14.671 ; Tinea unguium B35.1 ; Type 2 diabetes mellitus with Charcot's joint of right foot E11.610 ; Hammertoe of right foot M20.41 and Hammertoe of left foot M20.[address] [address] 03/27/2024 Candy Sandhu Type 2 diabetes mellitus with diabetic polyneuropathy E11.42 ; Charcot's joint of foot, right M14.671 ; Tinea unguium B35.1 ; Type 2 diabetes mellitus with Charcot's joint of right foot E11.610 ; Hammertoe of right foot M20.41 and Hammertoe of left foot M20.[address] [address] 08/07/2024 Candy Sandhu Type 2 diabetes mellitus with diabetic polyneuropathy E11.42 ; Charcot's joint of foot, right M14.671 ; Tinea unguium B35.1 ; Type 2 diabetes mellitus with Charcot's joint of right foot E11.610 ; Other hammer toe(s) (acquired), right foot M20.41 and Other hammer toe(s) (acquired), left foot M20.[address] [address] 10/30/2024 Candy Sandhu Charcot's joint of foot, [...] L97.522 and Toe osteomyelitis, left M86.9 [facility] [address] [address] 11/06/2024 Candy Sandhu Charcot's joint of foot, right M14.671 ; Cellulitis of foot, left L03.116 ; Type 2 diabetes mellitus with diabetic polyneuropathy E11.42 ; Type 2 diabetes mellitus with Charcot's joint of right foot E11.610 ; Other hammer toe(s) (acquired), left foot M20.42 and Neuropathic ulcer 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 L97.522 [facility] [address] [address] 11/13/2024 Candy Sandhu Charcot's joint of foot, right M14.671 ; Cellulitis of foot, left L03.116 ; Type 2 diabetes mellitus with diabetic polyneuropathy E11.42 ; Type 2 diabetes mellitus with Charcot's joint of right foot E11.610 ; Other hammer toe(s) (acquired), left foot M20.42 and Neuropathic ulcer 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 L97.522 [facility] [address] [address] 10/30/2024 Candy Sandhu [facility] [address] [address] 01/11/2024 Candy Mckaya [facility] [address] [address] 01/18/2024 Candy Sandhu [facility] [address] [address] 06/06/2024 Candy Sandhu [facility] [address] [address] 10/22/2024 Candy Sandhu [facility] [address] [address] 10/30/2024 Candy Perica [facility] [address] [address] 10/30/2024 Candy Perica [facility] [address] [address] 10/30/2024 Candy Perica [facility] [address] [address] 10/30/2024 Candy Perica [facility] [address] [address] 10/31/2024 Candy Sandhu Assessments Encounter Date Diagnosis [...] Details Provider Name:Candy ruiz, 02/01/2025 01:00:00 PM, [address] [place] [address], [address], Insurance Providers Payer Name Payer Address Payer Phone Subscriber Number Group Number Insured Name Patient Relationship to Insured Coverage Start Date Coverage End Date [facility] [id number] [place] [address] [id number] Quintin Chacon Self - patient is the insured Medical (General) History Medical History History ICD Code type II diabetes Heart disease Chicken pox Pacemaker Surgical History Surgery Date(Month/Year) cardiac pacemeker 04/15/2020 amputation, right toe 12/23/2020
--- OUTSIDE RECORDS SUMMARY | 2025-01-02 13:49 | XMS_ITS ---
Author Organization [facility] blaine [place] Address [address] [facility] [place] [address] Care Team Providers Care Information Technology Advisor Name Role Phone Quan RUCKER, [place] Primary Care Provider Unava ilCandy Rosario Unavailable [phone] Allergies No Known Allergies REASON FOR VISIT [...] 025 Encounters Encounter Location Date Provider Diagnosis [facility] [address] [address] 11/13/2024 Candy Sandhu Charcot's joint of foot, [...] Provider Name:Candy ruiz, 02/01/2025 01:00:00 PM, [address] [place], [address], Procedure Notes * Category Sub-Category Detail Notes [...] of the wound post debridement is stable (31640)The patient was instructed on importance of proper [...] Notes * Celio CHACONTrinidadOB:1965 (59 yo M)Acc No.[id number]:11/13/2024 Progress Notes Patient:?Quintin CHACON Provider:?Candy Sandhu DPM :1965???Age:59 Y???Sex:Male Santy e:11/13/2024 Address:[address] [place], [place] [id number] Pcp:Ronnell Glass MD Subjective: * Chief Complaints: * ???Skin problem(s)Open sore * HPI: ???Skin problems:?Nature:?redness , swelling , tenderOpen sore, odor.?Location:?Bottom Left, 1st, Toe(s), .?Duration:?a few weeks.?Onset/Cause:?unknown-likley due to boots and increased walking and snow shoveling.?Course:?improving, less redness and warmth of left foot.?Aggravated by:?standingwalking, any pressure, shoe gear, .?Treatments:?abx oint and bandaid, Mupiricin, Keflex, awaiting consults with KARRIE , Had appt with?[facility] wound care on11/10 and started using Alginate.?Misc:?Pt [...] ?Exercise: yes, walking. ?Marital status: single. 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 * Medications:?TakingTrulicity 0.75 MG/0.5ML Solution Pen-injector Subcutaneous Vitamin D3 50 MCG (1999 UT) Capsule TAKE 1 CAPSULE BY MOUTH DAILY Oral , Notes to Pharmacist: Len,Feedjit 2 w/Device Kit USE DIRECTED TO TEST [...] DAILY Oral , Notes to Pharmacist: E5Danny,UnavailableTaking OneAtlas5D Ultra 2 w/Device Kit USE DIRECTED TO [...] of the wound post debridement is stable (37862)The patient was instructed on importance of proper [...] local wound care as directed,.? * Procedure Codes:?90294 DEBRI DE SKIN/TISSUE, Modifiers: XS * Preventive [...] intervention when/if medically warranted, Continue treatment with [facility] wound care.? ??Screening/Special Tests:?Fall Risk?Screening:?No falls in the past year ?FALLS: Screening for Future Fall Risk?Have you had any falls with injury in the past year??No * Follow Up:?2 Months * Images: * Sign off status: Completed true * Provider:?Candy aSndhu, DPMindy Date:? Generated for Carine shaw/Negrito/Kassy on:?01/02/2025 01:49 PM EDT History and Physical Notes * [...] consults with KARRIE , Had appt with [facility] wound care on11/10 and started using Alginate [...] at [facility], rerarfoot and ankle , RIGHT FOOTWEAR EVALUATION: worn, non-supportiv e, shoe gear properties exacerbate patient's foot/toe deformity, [...]
--- OUTSIDE RECORDS SUMMARY | 2025-01-02 13:49 | XMS_ITS ---
Author Organization [facility] blaine [place] Address [address] [place] [address] Care Team Providers Care Service Vehicle Operator Name Role Phone Quan RUCKER, [place] Primary Care Provider UnaCandy Smith Unavailable [phone] Allergies No Known Allergies REASON FOR VISIT [...] 025 Encounters Encounter Location Date Provider Diagnosis [facility] [place] [address] [place] [address] 11/06/2024 Candy Sandhu Charcot's joint of foot, [...] Provider Name:Candy ruiz, 02/01/2025 01:00:00 PM, [address] [place], [address], Procedure Notes * Category Sub-Category Detail Notes [...] of the wound post debridement is stable (07049)The patient was instructed on importance of proper [...] Notes * Harris CHACONOB:1965 (59 yo M)Acc No.[id number]:11/06/2024 Progress Notes Patient:?Quintin CHACON Provider:?Candy Sandhu DPM :1965???Age:59 Y???Sex:Male Santy e:11/06/2024 Address:[address] [place], [place] [id number] Pcp:Ronnell Glass MD Subjective: * Chief Complaints: * ???Skin problem(s)Open sore * HPI: ???Skin problems:?Nature:?redness , swelling , tenderOpen sore, odor.?Location:?Bottom Left, 1st, Toe(s), .?Duration:?a few weeks.?Onset/Cause:?unknown-likley due to boots and increased walking and snow shoveling.?Course:?improved, less redness and warmth of left foot.?Aggravated by:?standingwalking, any pressure, shoe gear, .?Treatments:?abx oint and bandaid, Mupiricin, Keflex, awaiting consults with [facility] and [facility] wound care.?Misc:?Pt denies any [...] ?Exercise: yes, walking. ?Marital status: single. 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 * Medications:?TakingTrulicity 0.75 MG/0.5ML Solution Pen-injector Subcutaneous Vitamin D3 50 MCG (2000 UT) Capsule TAKE 1 CAPSULE BY MOUTH DAILY Oral , Notes to Pharmacist: E559,Proenza Schouer 2 w/Device Kit USE DIRECTED TO TEST [...] DAILY Oral , Notes to Pharmacist: E559,UnavailableTaking Iptivia Ultra 2 w/Device Kit USE DIRECTED TO [...] of the wound post debridement is stable (47063)The patient was instructed on importance of proper [...] local wound care as directed,.? * Procedure Codes:?37925 DEBRI DE SKIN/TISSUE, Modifiers: XS * Preventive [...] Center due to pedal risk of limb/life, [place] was contacted.? ??Screening/Special Tests:?Fall Risk?Screening:?No falls in the past year ?FALLS: Screening for Future Fall Risk?Have you had any falls with injury in the past year??No * Follow Up:?1 Week * Images: * Sign off status: Completed true * Provider:?Candy Sandhu, ARNIE Date:? Generated for Carine shaw/Negrito/Kassy on:?01/02/2025 01:49 [...] bandaid , Mupiricin, Keflex, awaiting consults with [facility] and [facility] wound care Misc: Pt [...]
--- OUTSIDE RECORDS SUMMARY | 2025-01-02 13:49 | XMS_ITS | Clinical Summary ---
Author Organization [facility] Address [address] [address] Care Team Providers Care Assessment Technician Name Role Phone Ronnell Glass MD Primary Care Provider [phone] Medications amLODIPine (NORVASC) 10 MG tablet Take [...] to the 100-120s range today. -Diabetic diet -Imgsq-hm-wxdb checks with meals and at bedtime -Patient takes metformin 1000 mg twice daily which was held at admission First degree atrioventricular block 11/14/2020 Overview (11/14/2020): Last Assessment & Plan: EKG does show first-degree AV block with DC 310 ms. Bradycardic after clonidine. Echocardiogram was [...] Health Maintenance Due Date Last Done Comments Hepatitis B Vaccine (1 of 3 - 19+ 3-dose series) 01/03 Pneumococcal Vaccine: 50+ Years (1 of 2 - PCV) 984 Colorectal Cancer Screening: Annual FOBT 2014 Colorectal Cancer Screening: Colonoscopy 2014 Colorectal Cancer Screening: Sigmoidoscopy 2014 Diabetes: Ophthalmology Exam 10/17/2020 Diabetes: Pedal Pulse Checked 10/17/2020 Diabetes: Sensory Foot Exam 10/17/2020 Diabetes: Visual Foot Exam 10/17/2020 Diabetes: Hemoglobin A1C 11/27/2020 08/29/2020 Influenza Vaccine (Season Ended) 2025 Procedures Procedure Name Priority Date/Time Associated Diagnosis [...] % PVNMA 08/29/2020 us Rtama Conversion LAB [id number] LICITED RESULTS Final Result PVNMA from Last 3 Months or Most Recently Relevant to Health Maintenance Insurance Care Teams Assessment Technician Relationship Specialty Start Date End Date Ronnell Glass MD [address] [place], [place] [phone] PCP - General 09/29/20
--- OUTSIDE RECORDS SUMMARY | 2025-01-02 13:49 | XMS_ITS ---
Author Organization [facility] [place] Address [address] [place] [address] Care Team Providers Care Tree Marker Name Role Phone Quan RUCKER, [place] Primary Care Provider Unava ilable Candy Sandhu Unavailable [phone] REASON FOR VISIT Financial Waiver Encounters Encounter Location Date Provider Diagnosis [facility] [address] [address] 10/31/2024 Candy Sandhu Plan Of Treatment Next Appt Details Provider Name:Candy ruiz, 02/01/2025 01:00:00 PM, [address] [place], [address], Progress Notes * Harris CHACONOB:1965 (59 yo M)Acc No.[id number]:10/31/2024 Patient:?Quintin CHACON :1965???Age:59 Y???Sex:Male Address:[address] [place] [address], [address] * true * Date:? Generated for Printi ng/Faxing/eTransmitting on:?01/02/2025 01:48 PM EDT
== END 2025-01-02 11:23 | disposition home or self-care (01) ==
LOC: HO.LAB 11:22
PROVIDERS: Nurse Practitioner Family; PCP Internal Medicine; Visit Provider Internal Medicine
DX: I42.9 Cardiomyopathy, unspecified (principal); R30.0 Dysuria
CPT/HCPCS: 36415; 80048; 81003; 85025; 85610

== ENCOUNTER 2025-01-11 13:31 | Outpatient (AMB) | payer BC, SELFPAY ==
--- NOTE | 2025-01-11 13:36 | MHC.OFFVIS ---
Vital Signs 01/11/25 13:37 Height 5 ft 9 in Weight 244 lb 11.41 oz BMI 36.1 BP 126/70 Blood Pressure Location Lt brachial Position Sitting Pulse 69 Pulse Source Monitor Intake Visit Reasons: 1m follow up Allergies regadenoson [From Lexiscan] Adverse Reaction (Severe, Verified 11/22/24 13:45) seizure type activity Medication List - Last Reconciled 01/11/25 by MADDIE King alcohol swabs (BD Alcohol Swabs) 1 pad topical QID amlodipine 5 mg PO DAILY apixaban (Eliquis) 5 mg PO BID atorvastatin 20 mg PO BEDTIME 90 days blood sugar diagnostic (OneTouch Verio test strips) 1 strip miscellaneous TID 30 days blood sugar diagnostic (OneTouch Ultra Test strips) As directed -tests 4 X/day blood-glucose meter (Intern Latin AmericaTouch Ultra2 Meter) As directed tests 4 X/day blood-glucose sensor (FreeStyle Tish 3 Sensor device) As directed blood-glucose,fly rail operator,cont (FreeStyle Tish 3 [place]) As directed bumetanide 2 mg PO BID 30 days carvedilol 12.5 mg PO BID cholecalciferol (vitamin D3) 50 mcg PO DAILY 90 days hydralazine 100 mg PO BID insulin glargine (Basaglar KwikPen U-100 Insulin) 10 units (0.1 mL) subcut QPM 30 days isosorbide mononitrate ER 60 mg PO DAILY 90 days lancets As directed lancets (Intern Latin AmericaTouch UltraSoft Lancets) As directed-tests 4 X/day pen needle, diabetic As directed spironolactone 50 mg (2 x 25 mg) PO QAM tamsulosin 0.4 mg PO DAILY 90 days Trulicity (dulaglutide) 1.5 mg (0.5 mL) subcut QWEEK 30 days NS HPI HPI 1m follow up: Details: Quintin is a 60-year-old male past medical history of hypertension, hyperlipidemia, diabetes, chronic kidney disease, right heart failure, dual-chamber pacemaker, brief NSVT, recent echos showing EF 35-40%, recent persistent atrial flutter who was started on anticoagulation last visit. He now presents for follow-up. Today he reports that he has been noticing increased fatigue. He does not notice any heart palpitations. No shortness of breath, PND, orthopnea or edema. No lightheadedness, presyncope, syncope. No bleeding issues reported. 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 He is taking his meds as directed, including Eliquis. His significant other as on the phone during this visit. [facility] Medical History Liver mass Vitamin D deficiency Obesity (BMI 30-39.9) Pure hypercholesterolemia Benign essential hypertension Combined systolic and diastolic congestive heart failure Chronic kidney disease (CKD), stage III (moderate) Diabetic foot ulcer with osteomyelitis Complete heart block CHF (congestive heart failure) BPH (benign prostatic hyperplasia) Proteinuria Hyperlipidemia Essential hypertension Normally functioning cardiac pacemaker present Chronic right heart failure Heart block CKD (chronic kidney disease) Hypertension Type 2 diabetes mellitus Pacemaker Surgical History History of amputation of toe Type 2 diabetes mellitus with other diabetic kidney complication History of cardiac pacemaker (~04/15/20) Family History Mother CVA (cerebral vascular accident) Diabetes Social History Housing: Apartment Alcohol intake: never Patient Tobacco Use Status: Never used Tobacco Tobacco use type: Cigarette e-Cigarette/Vaping Use: Never Used Second Hand Smoke Exposure: Yes service: Yes Current occupational status: employed Cognitive needs: No Hearing needs: No Vision needs: No Review of Systems Const Reports fatigue and Denies weakness ENT Denies dizziness Card Denies chest pain, Denies chest pain with activity, Denies syncope, Denies rapid heart rate, Denies pedal edema, Denies edema, Denies leg edema, Denies lightheadedness, Denies palpitations, Denies dyspnea, Denies dyspnea on exertion and Denies orthopnea Resp Denies cough, Denies dyspnea and Denies dyspnea on exertion GI Denies hematochezia and Denies change in stool character Musc Denies abnormal gait, Denies muscle cramps, Denies muscle weakness, Denies numbness, Denies radiating pain into limb and Denies tingling Neuro Denies abnormal gait, Denies dizziness, Denies syncope, Denies numbness, Denies tingling and Denies weakness Endo Reports fatigue and Denies palpitations Physical Exam Vital Signs: Last Vital Signs Pulse 69 01/11/25 13:37 BP 126/70 01/11/25 13:37 BMI result Body Mass Index 36.1 Const General: cooperative, healthy appearing, comfortable and no acute distress Orientation/consciousness: patient oriented x3 Neck Neck: Yes normal visual inspection Resp Effort & Inspection: normal respiratory effort Auscultation: clear to auscultation bilaterally, no rales, no rhonchi and no wheezes Cardio Rate: regular rate Rhythm: regular rhythm Heart sounds: S1 normal heart sound present, S2 normal heart sound present, no gallops, no murmurs and no rubs Neuro General: patient oriented x3 Extrem General: Yes normal to inspection, No no pedal edema and No calf tenderness Psych Appearance: grossly normal Mental Status: mental status grossly normal Speech and movement: Normal speech and movement present Office Procedures EKG Details: Today, read by me, Atrial flutter, Ventricular paced, rate 69 [id number], Complete Assessment & Plan Assessment & Plan (1) Atrial flutter: Code(s): I48.92 - Unspecified atrial flutter Category: Medical Plan: New finding of atrial flutter on remote monitoring, which has been persistent, with controlled V rate since 11/30/2024. He is on carvedilol for heart rate control. He was started on Eliquis for anticoagulation on 12/07/2024. EKG today shows atrial flutter with V paced rhythm, rate 69. He is reporting increased fatigue. Discussed cardioversion procedure with him, including risks and expected outcomes. He is agreeable to proceed. Will make arrangements for cardioversion in the near future. Continue Eliquis without any interruption. Continue carvedilol. Office EKG 1 week post cardioversion. Will continue with remote monitoring of his Biotronik device to assess for reoccurrence of atrial flutter/fib. (2) Cardiomyopathy: Code(s): I42.9 - Cardiomyopathy, unspecified Category: Medical Plan: History of heart failure with preserved EF, right-sided heart failure. Echo done 06/26/2020 showed normal EF. Echocardiogram was done on 09/28/2023 showing EF 35-40%, mild LVH. A repeat echocardiogram was done 10/12/2024 again showing EF 35-40%. We have discussed cardiac catheterization with him on numerous occasions and he has not made a decision to proceed. At this visit he is finally willing to go forward with this procedure. Spent time reviewing procedure and all questions answered. Signs and symptoms of heart failure reviewed with him. Continues on Bumex 2 mg b.i.d. and Aldactone 50 mg daily. He is on carvedilol for neurohormonal modulation. He is not on Hamzah or Arb due to CKD. He is on hydralazine and isosorbide. Will arrange for cardiac catheterization procedure to be done at least 1 month post cardioversion procedure. Preprocedure labs ordered. Cardiology follow-up 2 weeks post procedure. (3) Combined systolic and diastolic congestive heart failure: Code(s): I50.40 - Unspecified combined systolic (congestive) and diastolic (congestive) heart failure Category: Medical Qualifiers: Heart failure chronicity: unspecified Qualified Code(s): I50.40 - Unspecified combined systolic (congestive) and diastolic (congestive) heart failure Plan: Stable at present. Signs and symptoms of heart failure reviewed with him. He states full understanding. (4) Complete heart block: Comment: S/P pacemaker insertion on 04/15/2020 Code(s): I44.2 - Atrioventricular block, complete Category: Medical Plan: History of complete heart block. Has Biotronik dual-chamber pacemaker in place. Functioning normally on last office interrogation, 07/23/2024. Does have remote monitoring in use as well. Next office interrogation due around time of next visit. (5) Normally functioning cardiac pacemaker present: Code(s): Z95.0 - Presence of cardiac pacemaker Category: Medical Plan: As above -followed on remote monitoring. (6) Essential hypertension: Code(s): I10 - Essential (primary) hypertension Category: Medical Plan: Blood pressure goal less than 130/80. Well controlled at this time. No med changes made. (7) Hypersomnia: Code(s): G47.10 - Hypersomnia, unspecified Category: Medical Plan: Ordering sleep study -still pending Plan Time spent on chart review, documentation, interview and assessment Orders: Orders Cardioversion Today I48.92 - Unspecified atrial flutter Basic Metabolic Panel 02/11/25 I42.9 - Cardiomyopathy, unspecified Prothrombin Time INR 02/11/25 I42.9 - Cardiomyopathy, unspecified Complete Blood Count Auto Diff 02/11/25 I42.9 - Cardiomyopathy, unspecified Coding Level of Care Code Est Pt Level 4 (35069) Complex EM visit Add On G2211 Diagnoses Atrial flutter I48.92 Cardiomyopathy I42.9 Combined systolic and diastolic congestive heart failure, unspecified HF chronicity I50.40 Heart failure chronicity: unspecified Complete heart block I44.2 Normally functioning cardiac pacemaker present Z95.0 Essential hypertension I10 Hypersomnia G47.10 CPT Codes EKG - CPT: 55731-Xevezrrzyippjrvtd, Complete ([id number]) Time Spent (min) 35
[2025-01-11 13:37] VITALS: BP 126/70; PULSE 69; BMI 36.1
--- OUTSIDE RECORDS SUMMARY | 2025-01-11 14:13 | XMS_ITS ---
Author Organization [facility] Address [address] [place] [address] Care Team Providers Care Cage Tender Name Role Phone Quan RUCKER, [place] Primary Care Provider Unava ilable Candy Sandhu Unavailable [phone] REASON FOR VISIT Financial Waiver Encounters Encounter Location Date Provider Diagnosis [facility] [address] [address] 10/31/2024 Candy Sandhu Plan Of Treatment Next Appt Details Provider Name:Candy ruiz, 02/01/2025 01:00:00 PM, [address] [place], [address], Progress Notes * Harris CHACONOB:1965 (59 yo M)Acc No.[id number]:10/31/2024 Patient:?Quintin CHACON :1965???Age:59 Y???Sex:Male Address:[address] [place] [address], [address] * true * Date:? Generated for Printi ng/Faxing/eTransmitting on:?01/11/2025 02:12 PM EDT
--- OUTSIDE RECORDS SUMMARY | 2025-01-11 14:13 | XMS_ITS | Continuity of Care Document ---
Author Name [facility] Organization [facility] Care Team Providers Care Assistant Editor Name Role Phone [facility] Unavailable Unavailable Immunizations Combined list of available immunizations from the Department of Defense and Veterans Affairs facilities. Immunization Series Date Given Administered By Site Reaction Lot Number CVX Code Drug Materials Inspector Status Comments Source INFLUENZA, SEASONAL, INJECTABLE [...] complet ed [facility] INFLUENZA, UNSPECIFIED FORMULATION 1996 Reynaldo BECK 88 complet ed [facility]
--- OUTSIDE RECORDS SUMMARY | 2025-01-11 14:13 | XMS_ITS | Clinical Summary ---
Author Organization [facility] Facility Address [address] [address] Care Team Providers Care Volleyball Coach Name Role Phone Ronnell Glass MD Primary Care Provider [phone] Medications amLODIPine (NORVASC) 10 MG tablet Take [...] to the 100-120s range today. -Diabetic diet -Ghjyr-so-ddjw checks with meals and at bedtime -Patient takes metformin 1000 mg twice daily which was held at admission First degree atrioventricular block 11/14/2020 Overview (11/14/2020): Last Assessment & Plan: EKG does show first-degree AV block with TX 310 ms. Bradycardic after clonidine. Echocardiogram was [...] Due Date Last Done Comments Pneumococcal Vaccine: 50+ Ye ars (1 of 2 - PCV) 01/04/1984 Colorectal Cancer Screening: Annual FOBT 2014 Colorectal Cancer Screening: Colonoscopy 2014 Colorectal Cancer Screening: Sigmoidoscopy 2014 Diabetes: Ophthalmology Exam 10/17/2020 Diabetes: Pedal Pulse Checked 10/17/2020 Diabetes: Sensory Foot Exam 10/17/2020 Diabetes: Visual Foot Exam 10/17/2020 Diabetes: Hemoglobin A1C 11/27/2020 08/29/2020 Influenza Vaccine (Season Ended) 2025 Hepatitis B Vaccine Aged Out No longe r eligible based on patient's age to complete this topic Procedures Procedure Name Priority Date/Time Associated Diagnosis [...] % PVNMA 08/29/2020 us [facility] Conversion LAB [id number] LICITED RESULTS Final Result PVNMA from Last 3 Months or Most Recently Relevant to Health Maintenance [place] [address] [address] [place] [address] Care Teams Volleyball Coach Relationship Specialty Start Date End Date Ronnell Glass MD [address] [place], [place] [id number] PCP - General 09/29/20
--- OUTSIDE RECORDS SUMMARY | 2025-01-11 14:13 | XMS_ITS ---
Author Organization [facility] [place] Address [address] [facility] [place] [address] Care Team Providers Care Caustic Pump Operator Name Role Phone Quan RUCKER, [place] Primary Care Provider Unava ilCandy Rosario Unavailable [phone] Allergies No Known Allergies REASON FOR VISIT [...] 025 Encounters Encounter Location Date Provider Diagnosis [facility] [address] [address] 11/13/2024 Candy Sandhu Charcot's joint of foot, [...] Provider Name:Candy ruiz, 02/01/2025 01:00:00 PM, [address] [place], [address], Procedure Notes * Category Sub-Category Detail Notes [...] of the wound post debridement is stable (44575)The patient was instructed on importance of proper [...] Notes * Celio CHACONTrinidadOB:1965 (59 yo M)Acc No.[id number]:11/13/2024 Progress Notes Patient:?Quintin CHACON Provider:?Candy Sandhu DPM :1965???Age:59 Y???Sex:Male Santy e:11/13/2024 Address:[address] [place], [place] [id number] Pcp:Ronnell Glass MD Subjective: * Chief Complaints: * ???Skin problem(s)Open sore * HPI: ???Skin problems:?Nature:?redness , swelling , tenderOpen sore, odor.?Location:?Bottom Left, 1st, Toe(s), .?Duration:?a few weeks.?Onset/Cause:?unknown-likley due to boots and increased walking and snow shoveling.?Course:?improving, less redness and warmth of left foot.?Aggravated by:?standingwalking, any pressure, shoe gear, .?Treatments:?abx oint and bandaid, Mupiricin, Keflex, awaiting consults with KARRIE , Had appt with?[facility] wound care on11/10 and started using Alginate.?Misc:?Pt [...] ?Exercise: yes, walking. ?Marital status: single. 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 * Medications:?TakingTrulicity 0.75 MG/0.5ML Solution Pen-injector Subcutaneous Vitamin D3 50 MCG (1999 UT) Capsule TAKE 1 CAPSULE BY MOUTH DAILY Oral , Notes to Pharmacist: Len,[employer] 2 w/Device Kit USE DIRECTED TO TEST [...] DAILY Oral , Notes to Pharmacist: E5Danny,UnavailableTaking OneTYT ([employer]) Ultra 2 w/Device Kit USE DIRECTED TO [...] of the wound post debridement is stable (99905)The patient was instructed on importance of proper [...] local wound care as directed,.? * Procedure Codes:?85722 DEBRI DE SKIN/TISSUE, Modifiers: XS * Preventive [...] intervention when/if medically warranted, Continue treatment with [facility] wound care.? ??Screening/Special Tests:?Fall Risk?Screening:?No falls in the past year ?FALLS: Screening for Future Fall Risk?Have you had any falls with injury in the past year??No * Follow Up:?2 Months * Images: * Sign off status: Completed true * Provider:?Candy Sandhu, DPMindy Date:? Generated for Carine shaw/Negrito/Kassy on:?01/11/2025 02:13 PM EDT History and Physical Notes * [...] consults with KARRIE , Had appt with [facility] wound care on11/10 and started using Alginate [...]
--- OUTSIDE RECORDS SUMMARY | 2025-01-11 14:13 | XMS_ITS | Patient Health Record ---
[facility] Address [address] [facility] [place] [address] Care Team Providers Care Incident Response Engineer Name Role Phone Quan RUCKER [place] Primary Care Provider Unava Candy [place] Unavailable [phone] Allergies No Known Allergies Results Component Value [...] Problem Acquired hammer toe of right foot (066641176451475 5) Other hammer toe(s) (acquired), right foot (M20.41) Active confirmed Problem Acquired hammer toe of left foot (246722945295585 3) Other hammer toe(s) (acquired), left foot (M20.42) Active confirmed Problem 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 I (577245669) Type 1 diabetes mellitus with diabetic polyneuropathy (E10.42) Active confirmed Problem Polyneuropathy due to type 2 diabetes mellitus (051818481) Type 2 diabetes mellitus with diabetic polyneuropathy (E11.42) Active confirmed Problem 526539030 Hammertoe of left foot (M20.42) Active confirmed Problem 712539227 Hammertoe of right foot (M20.41) Active confirmed Problem 606716824593 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) Active confirmed Problem Neuropathic ulcer 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 (L97.522) Active confirmed Response to treatment Problem 354820828 Toe osteomyelitis, left (M86.9) Active confirmed Problem 298691602 Charcot's joint of foot, right (M14.671) Active confirmed Vital Signs Blood pressure diastolic 90 mm Hg 11/13/2024 Height 5ft9in in 11/13/2024 Blood pressure systolic 130 mm Hg 11/13/2024 Weight 250 lbs 11/13/2024 BMI 36.91 kg/m2 11/13/2024 Encounters Encounter Location Date Provider Diagnosis [address] [address] 01/17/2024 Candy Sandhu Type 2 diabetes mellitus with diabetic polyneuropathy E11.42 ; Charcot's joint of foot, right M14.671 ; Tinea unguium B35.1 ; Type 2 diabetes mellitus with Charcot's joint of right foot E11.610 ; Hammertoe of right foot M20.41 and Hammertoe of left foot M20.[address] [address] 03/27/2024 Candy Sandhu Type 2 diabetes mellitus with diabetic polyneuropathy E11.42 ; Charcot's joint of foot, right M14.671 ; Tinea unguium B35.1 ; Type 2 diabetes mellitus with Charcot's joint of right foot E11.610 ; Hammertoe of right foot M20.41 and Hammertoe of left foot M20.[address] [address] 08/07/2024 Candy Sandhu Type 2 diabetes mellitus with diabetic polyneuropathy E11.42 ; Charcot's joint of foot, right M14.671 ; Tinea unguium B35.1 ; Type 2 diabetes mellitus with Charcot's joint of right foot E11.610 ; Other hammer toe(s) (acquired), right foot M20.41 and Other hammer toe(s) (acquired), left foot M20.[address] [address] 10/30/2024 Candy Sandhu Charcot's joint of foot, [...] exposed L97.522 and Toe osteomyelitis, left M86.9 [facility] [address] [address] 11/06/2024 Candy Sandhu Charcot's joint of foot, right M14.671 ; Cellulitis of foot, left L03.116 ; Type 2 diabetes mellitus with diabetic polyneuropathy E11.42 ; Type 2 diabetes mellitus with Charcot's joint of right foot E11.610 ; Other hammer toe(s) (acquired), left foot M20.42 and Neuropathic ulcer 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 L97.[address] [facility] [address] [address] 11/13/2024 Candy Sandhu Charcot's joint of foot, right M14.671 ; Cellulitis of foot, left L03.116 ; Type 2 diabetes mellitus with diabetic polyneuropathy E11.42 ; Type 2 diabetes mellitus with Charcot's joint of right foot E11.610 ; Other hammer toe(s) (acquired), left foot M20.42 and Neuropathic ulcer 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 L97.522 [facility] [address] [address] 10/30/2024 Candy Sandhu [facility] [address] [address] 01/18/2024 Candy Perica [facility] [address] [address] 06/06/2024 Candy Sandhu [facility] [address] [address] 10/22/2024 Candy Mckaya [facility] [address] [address] 10/30/2024 Candy Sandhu [facility] [address] [address] 10/30/2024 Candy Sandhu [facility] [address] [address] 10/30/2024 Canyd Sandhu [facility] [address] [address] 10/30/2024 Candy Sandhu [facility] [address] [address] 10/31/2024 Candy Sandhu Assessments Encounter Date Diagnosis [...] Details Provider Name:Candy ruiz, 02/01/2025 01:00:00 PM, [address] [place] [address], [phone], Insurance Providers Payer Name Payer Address Payer Phone Subscriber Number Group Number Insured Name Patient Relationship to Insured Coverage Start Date Coverage End Date [facility] [address] [place] [address] [id number] Quintin Chacon Self - patient is the insured Medical (General) History Medical History History ICD Code type II diabetes Heart disease Chicken pox Pacemaker Surgical History Surgery Date(Month/Year) cardiac pacemeker 04/15/2020 amputation, right toe 12/23/2020
--- OUTSIDE RECORDS SUMMARY | 2025-01-11 14:13 | XMS_ITS ---
Author Organization [facility] [place] Address [address] [place] [address] Care Team Providers Care Adult School Teacher Name Role Phone Quan RUCKER, [place] Primary Care Provider UnaCandy Smith Unavailable [phone] Allergies No Known Allergies REASON FOR VISIT [...] 025 Encounters Encounter Location Date Provider Diagnosis [facility] [place] [address] [place] [address] 11/06/2024 Candy Sandhu Charcot's joint of foot, [...] Provider Name:Candy ruiz, 02/01/2025 01:00:00 PM, [address] [place], [address], Procedure Notes * Category Sub-Category Detail Notes [...] of the wound post debridement is stable (04658)The patient was instructed on importance of proper [...] Notes * Harris CHACONOB:1965 (59 yo M)Acc No.[id number]:11/06/2024 Progress Notes Patient:?Quintin CHACON Provider:?Candy Sandhu DPM :1965???Age:59 Y???Sex:Male Santy e:11/06/2024 Address:[address] [place], [place] [phone] Pcp:Ronnell Glass MD Subjective: * Chief Complaints: * ???Skin problem(s)Open sore * HPI: ???Skin problems:?Nature:?redness , swelling , tenderOpen sore, odor.?Location:?Bottom Left, 1st, Toe(s), .?Duration:?a few weeks.?Onset/Cause:?unknown-likley due to boots and increased walking and snow shoveling.?Course:?improved, less redness and warmth of left foot.?Aggravated by:?standingwalking, any pressure, shoe gear, .?Treatments:?abx oint and bandaid, Mupiricin, Keflex, awaiting consults with [facility] and [facility] wound care.?Misc:?Pt denies any N, V, F, [...] ?Exercise: yes, walking. ?Marital status: single. 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 * Medications:?TakingTrulicity 0.75 MG/0.5ML Solution Pen-injector Subcutaneous Vitamin D3 50 MCG (2000 UT) Capsule TAKE 1 CAPSULE BY MOUTH DAILY Oral , Notes to Pharmacist: E559,[employer] 2 w/Device Kit USE DIRECTED TO TEST [...] DAILY Oral , Notes to Pharmacist: E559,UnavailableTaking [employer] Ultra 2 w/Device Kit USE DIRECTED TO [...] of the wound post debridement is stable (55197)The patient was instructed on importance of proper [...] local wound care as directed,.? * Procedure Codes:?80606 DEBRI DE SKIN/TISSUE, Modifiers: XS * Preventive [...] Center due to pedal risk of limb/life, [place] was contacted.? ??Screening/Special Tests:?Fall Risk?Screening:?No falls in the past year ?FALLS: Screening for Future Fall Risk?Have you had any falls with injury in the past year??No * Follow Up:?1 Week * Images: * Sign off status: Completed true * Provider:?Candy Sandhu DPM Date:? Generated for Carine shaw/Negrito/Kassy on:?01/11/2025 02:13 [...] bandaid , Mupiricin, Keflex, awaiting consults with [facility] and [facility] wound care Misc: Pt denies any N, [...]
== END 2025-01-11 14:05 | disposition home or self-care (01) ==
LOC: HO.HCS 13:32
PROVIDERS: PCP Internal Medicine; Visit Provider Nurse Practitioner Family
DX: I48.92 Unspecified atrial flutter (principal); I42.9 Cardiomyopathy, unspecified; I50.40 Unspecified combined systolic (congestive) and diastolic (congestive) heart failure; I44.2 Atrioventricular block, complete; Z95.0 Presence of cardiac pacemaker; I10 Essential (primary) hypertension; G47.10 Hypersomnia, unspecified
CPT/HCPCS: 93010; 99214

== ENCOUNTER → 2025-01-11 13:31 | Outpatient (BNVA) | payer BC, SELFPAY | PROVIDERS: PCP Internal Medicine; Visit Provider Nurse Practitioner Family | DX: I48.92 Unspecified atrial flutter (principal); I42.9 Cardiomyopathy, unspecified; I13.0 Hypertensive heart and chronic kidney disease with heart failure and stage 1 through stage 4 chronic kidney disease, or unspecified chronic kidney disease; N18.9 Chronic kidney disease, unspecified; I50.40 Unspecified combined systolic (congestive) and diastolic (congestive) heart failure; I44.2 Atrioventricular block, complete; G47.10 Hypersomnia, unspecified; Z79.01 Long term (current) use of anticoagulants; Z79.899 Other long term (current) drug therapy; Z95.0 Presence of cardiac pacemaker | CPT/HCPCS: 93005 ==

== ENCOUNTER → 2025-01-18 23:59 | Outpatient (BNV) | payer BC, SELFPAY ==
--- NOTE | 2025-01-20 08:39 | MHC.OFFVIS ---
Intake Visit Reasons: Remote HF monitoring- Biotronik Allergies regadenoson [From Lexiscan] Adverse Reaction (Severe, Verified 11/22/24 13:45) seizure type activity PFSH Medical History Liver mass Vitamin D deficiency Obesity (BMI 30-39.9) Pure hypercholesterolemia Benign essential hypertension Combined systolic and diastolic congestive heart failure Chronic kidney disease (CKD), stage III (moderate) Diabetic foot ulcer with osteomyelitis Complete heart block CHF (congestive heart failure) BPH (benign prostatic hyperplasia) Proteinuria Hyperlipidemia Essential hypertension Normally functioning cardiac pacemaker present Chronic right heart failure Heart block CKD (chronic kidney disease) Hypertension Type 2 diabetes mellitus Pacemaker Surgical History History of amputation of toe Type 2 diabetes mellitus with other diabetic kidney complication History of cardiac pacemaker (~04/15/20) Family History Mother CVA (cerebral vascular accident) Diabetes Social History Housing: Apartment Alcohol intake: never Patient Tobacco Use Status: Never used Tobacco Tobacco use type: Cigarette e-Cigarette/Vaping Use: Never Used Second Hand Smoke Exposure: Yes service: Yes Current occupational status: employed Cognitive needs: No Hearing needs: No Vision needs: No Office Procedures Cardiac Device Check Cardiac Device Check Details: Date of service- 01/18/2025 ; Battery life 55%; normal lead parameters; AP 19%; NURSE PARALEGAL 100%; atrial fibrillation since november. Overall normal device function. [id number] Cardiac Device Interrogation, pacemaker Procedure code (CPT) selection complete Assessment & Plan Assessment & Plan (1) Normally functioning cardiac pacemaker present: Code(s): Z95.0 - Presence of cardiac pacemaker Category: Medical (2) Complete heart block: Comment: S/P pacemaker insertion on 04/15/2020 Code(s): I44.2 - Atrioventricular block, complete Category: Medical Plan x Coding Level of Care Code Procedure Only Diagnoses Normally functioning cardiac pacemaker present Z95.0 Complete heart block I44.2 CPT Codes Cardiac Device Check - Cardiac Device 12: [id number] Cardiac Device Interrogation, pacemaker ([id number])
== END ==
PROVIDERS: PCP Internal Medicine; Visit Provider Internal Medicine
DX: I44.2 Atrioventricular block, complete (principal); Z95.0 Presence of cardiac pacemaker
CPT/HCPCS: 93294

== ENCOUNTER → 2025-01-25 09:27 | Day surgery (SDC) | payer BC, SELFPAY ==
--- NOTE | 2025-01-23 12:19 | HO.ANESPROP2 ---
HPI - Anesthesia Eval Consult details Narrative: 60yo M for Cardioversion Pacer in situ for CHB (2019) Eliquis for afib Anesthesia Pre-Procedure Meds Is the patient on any of the following meds?: GLP1/DPP4 PMFSH Active Problems Active Problems: All Active Problems Hypersomnia (Acute) Atrial flutter (Acute) Charcot's arthropathy, diabetic (Acute) Cardiomyopathy (Acute) NSVT (nonsustained ventricular tachycardia) (Acute) Vitamin D deficiency (Acute) Right ankle sprain (Acute) Right leg swelling (Acute) Redness of eye, left (Acute) Obesity (BMI 30-39.9) (Acute) Pure hypercholesterolemia (Acute) Benign essential hypertension (Acute) Combined systolic and diastolic congestive heart failure (Acute) Chronic kidney disease (CKD), stage III (moderate) (Acute) Diabetic foot ulcer with osteomyelitis (Acute) CKD (chronic kidney disease) (Acute) Amputation of toe of right foot (Acute) Anemia (Chronic) Diabetic foot ulcer (Acute) Necrosis (Acute) Complete heart block (Acute) Type 2 diabetes mellitus with other diabetic kidney complication (Acute) Proteinuria (Acute) Hyperlipidemia (Acute) Essential hypertension (Acute) Normally functioning cardiac pacemaker present (Acute) Chronic right heart failure (Acute) Past Medical History Medical History Liver mass Vitamin D deficiency Obesity (BMI 30-39.9) Pure hypercholesterolemia Benign essential hypertension Combined systolic and diastolic congestive heart failure Chronic kidney disease (CKD), stage III (moderate) Diabetic foot ulcer with osteomyelitis Complete heart block CHF (congestive heart failure) BPH (benign prostatic hyperplasia) Proteinuria Hyperlipidemia Essential hypertension Normally functioning cardiac pacemaker present Chronic right heart failure Heart block CKD (chronic kidney disease) Hypertension Type 2 diabetes mellitus Pacemaker Family History Family History Mother CVA (cerebral vascular accident) Diabetes Surgical History Surgical History History of amputation of toe Type 2 diabetes mellitus with other diabetic kidney complication History of cardiac pacemaker (~04/15/20) Social History Social History Housing: Apartment Alcohol intake: never Patient Tobacco Use Status: Never used Tobacco Tobacco use type: Cigarette e-Cigarette/Vaping Use: Never Used Second Hand Smoke Exposure: Yes service: Yes Current occupational status: employed Cognitive needs: No Hearing needs: No Vision needs: No Meds Allergies Allergy/AdvReac Type Severity Reaction Status Date / Time regadenoson [From Lexiscan] AdvReac Severe seizure Verified 11/22/24 13:45 type activity Home Medications ?Medication ?Instructions ?Recorded ?Confirmed ?Last Taken ?Type lancets 33 gauge #100 ea 08/29/20 01/11/25 12/23/20 History pen needle, diabetic 32 gauge x #50 ea 08/29/20 01/11/25 12/23/20 History alcohol swabs (BD Alcohol Swabs) 1 pad topical QID 12/24/20 01/11/25 12/23/20 History Exam Pertinent Lab Results Pertinent Lab Results: Laboratory Tests 01/02/25 11:40 WBC 6.1 Hgb 11.7 L Hct 36.2 L Plt Count 203 D Sodium 141 Potassium 4.1 Chloride 109 H Carbon Dioxide 29 BUN 26 H Creatinine 1.58 H Assessment and Plan Assessment Anesthesia Assessment: Chart Reviewed
[2025-01-23 14:29] VITALS: BMI 36.0
--- NOTE | 2025-01-25 09:47 | ECG_ITS ---
Test Reason : ? AFIB Blood Pressure : */* mmHG Vent. Rate : 69 BPM Atrial Rate : 234 BPM P-R Int : * ms QRS Dur : 210 ms QT Int : 470 ms P-R-T Axes : 49 -55 69 degrees QTcB Int : 503 ms Ventricular-paced rhythm Abnormal ECG When compared with ECG of 09-Apr-2020 13:38, Electronic ventricular pacemaker has replaced Sinus rhythm Referred By: Gutierrez Carmichael Electronically Signed By: GOMEZ PANIAGUA
[2025-01-25 09:57] VITALS: BP 179/96; PULSE 69; RESP 16; TEMP 36.8; O2SAT 99
--- NOTE | 2025-01-25 10:09 | PC.NURSE ---
patient stated i stopped all my medications for 24hrs . Confirmed patient took Eliquid 01/24/25 morning dose but did not take evening dose. Dr. Quintero, notified and aware. patient will need to be rescheduled at this time. patient educated on need to not stopped Eliquis prior to this procedure and that office will be reaching out to reschedule.
== END ==
LOC: HO.SSS 09:28
PROVIDERS: PCP Internal Medicine; Visit Provider Internal Medicine
DX: I48.92 Unspecified atrial flutter (principal); Z53.8 Procedure and treatment not carried out for other reasons; R94.31 Abnormal electrocardiogram [ECG] [EKG]
CPT/HCPCS: 93005

== ENCOUNTER → 2025-01-25 09:47 | Outpatient (BNV) | payer BC, SELFPAY | PROVIDERS: PCP Internal Medicine; Visit Provider Internal Medicine | DX: R94.31 Abnormal electrocardiogram [ECG] [EKG] (principal); Z95.0 Presence of cardiac pacemaker | CPT/HCPCS: 93010 ==

== ENCOUNTER → 2025-01-25 23:59 | Outpatient (BNV) | payer BC, SELFPAY ==
--- NOTE | 2025-01-29 12:47 | A.OFFVIS_ITS ---
Intake Visit Reasons: Remote device check- Biotronik Allergies regadenoson [From Lexiscan] Adverse Reaction (Severe, Verified 11/22/24 13:45) seizure type activity PFSH Medical History Liver mass Vitamin D deficiency Obesity (BMI 30-39.9) Pure hypercholesterolemia Benign essential hypertension Combined systolic and diastolic congestive heart failure Chronic kidney disease (CKD), stage III (moderate) Diabetic foot ulcer with osteomyelitis Complete heart block CHF (congestive heart failure) BPH (benign prostatic hyperplasia) Proteinuria Hyperlipidemia Essential hypertension Normally functioning cardiac pacemaker present Chronic right heart failure Heart block CKD (chronic kidney disease) Hypertension Type 2 diabetes mellitus Pacemaker Surgical History History of amputation of toe Type 2 diabetes mellitus with other diabetic kidney complication History of cardiac pacemaker (~04/15/20) Family History Mother CVA (cerebral vascular accident) Diabetes Social History Housing: Apartment Alcohol intake: never Patient Tobacco Use Status: Never used Tobacco Tobacco use type: Cigarette e-Cigarette/Vaping Use: Never Used Second Hand Smoke Exposure: No Use of substances other than those prescribed or required for medical reasons: No Have you been hit, kicked, punched, or otherwise hurt by someone within the past year? If so, by whom?: No Are you DNR?: No Advance Directives: No Advance Directives Information Provided: Yes Advance Directives on File: No Poor oral hygiene: Yes service: Yes Current occupational status: employed Cognitive needs: No Hearing needs: No Vision needs: No Office Procedures Cardiac Device Check Cardiac Device Check Details: Date of service- 01/25/2025 ; Battery life 55%; normal lead parameters; AP 18%; DIGITAL CONTENT MANAGER 100%; Atrial burden 24% since may 2024. Overall normal device function. [id number] Cardiac Device Interrogation, pacemaker Procedure code (CPT) selection complete Assessment & Plan Assessment & Plan (1) Normally functioning cardiac pacemaker present: Code(s): Z95.0 - Presence of cardiac pacemaker Category: Medical (2) Complete heart block: Comment: S/P pacemaker insertion on 04/15/2020 Code(s): I44.2 - Atrioventricular block, complete Category: Medical (3) Chronic right heart failure: Code(s): I50.812 - Chronic right heart failure Category: Medical Plan x Coding Level of Care Code Procedure Only Diagnoses Normally functioning cardiac pacemaker present Z95.0 Complete heart block I44.2 Chronic right heart failure I50.812 CPT Codes Cardiac Device Check - Cardiac Device 12: [id number]-Pdvxti Cardiac Device Interrogation, pacemaker ([id number])
== END ==
PROVIDERS: PCP Internal Medicine; Visit Provider Internal Medicine
DX: I50.812 Chronic right heart failure (principal); I44.2 Atrioventricular block, complete; Z95.0 Presence of cardiac pacemaker
CPT/HCPCS: 93294

== ENCOUNTER 2025-02-18 14:50 | Outpatient (AMB) | payer BC, SELFPAY ==
--- NOTE | 2025-02-18 15:23 | MHC.PC.OV ---
Vital Signs 02/18/25 15:24 Height 5 ft 9 in Weight 251 lb 4 oz BMI 37.1 BP 140/70 H Blood Pressure Location Lt brachial Position Sitting Pulse 69 Pulse Source Pulse Oximeter Temp 97.3 F Temp Source Temporal Artery Scan Pulse Oximetry (%) 97 Oxygen Delivery Method Room Air Intake Visit Reasons: HLD/HTN, CKD Intake Note: Patient is here to follow up on HLD, HTN, CKD. Track Broom Operator Required: No Pharmaceutical Compounding Supervisor: Not Required per policy Accompanied by: Self / Same As Patient Allergies regadenoson [From Petbrosiaiscan] Adverse Reaction (Severe, Verified 02/18/25 15:48) seizure type activity Medication List - Last Reconciled 02/18/25 by LIN Avila alcohol swabs (BD Alcohol Swabs) 1 pad topical QID amlodipine 5 mg PO DAILY apixaban (Eliquis) 5 mg PO BID 90 days atorvastatin 20 mg PO BEDTIME 90 days blood sugar diagnostic (OneTouch Verio test strips) 1 strip miscellaneous TID 30 days blood sugar diagnostic (OneTouch Ultra Test strips) As directed -tests 4 X/day blood-glucose meter (American-Albanian Hemp CompanyTouch Ultra2 Meter) As directed tests 4 X/day blood-glucose sensor (FreeStyle Tish 3 Sensor device) As directed blood-glucose,refrigerator mover,cont (FreeStyle Tish 3 [place]) As directed bumetanide 2 mg PO BID 30 days carvedilol 12.5 mg PO BID cholecalciferol (vitamin D3) 50 mcg PO DAILY 90 days hydralazine 100 mg PO BID insulin glargine (Basaglar KwikPen U-100 Insulin) 10 units (0.1 mL) subcut QPM 30 days isosorbide mononitrate ER 60 mg PO DAILY 90 days lancets As directed lancets (American-Albanian Hemp CompanyTouch UltraSoft Lancets) As directed-tests 4 X/day pen needle, diabetic As directed spironolactone 50 mg (2 x 25 mg) PO QAM tamsulosin 0.4 mg PO DAILY 90 days Trulicity (dulaglutide) 1.5 mg (0.5 mL) subcut QWEEK 30 days NS Tobacco use date assessed: 02/18/25 Dental Screening Dental Screen Date: 10/22/24 HPI HLD/HTN, CKD HPI Details The patient is 60 year old male presenting for follow of his chronic conditions Reports that he is feeling ok today, he was not able reports that last month was terrible deit rosales He did not take is trucity for a month so far. He has a pending aversion and he has to hold it for a week, then he thought he was not supposed to take his eliquis and they canceled the procedure because he did not take the eliquis for risk of clot. Denies chest pain, sob, heart palpitation or dizziness no abdominal pain/change in bowel habits Denies urinary symptoms Denies any change pain A1C 7.0% in office reports that her insurance said he we send it a 3 month supply he will get it for 90 bucks swelling noted in foot/ankle area, mild +1 pitting, no pain THEY were going to do and cardioversion and an angioplasty as well-these tests are pending [facility] Medical History Liver mass Vitamin D deficiency Obesity (BMI 30-39.9) Pure hypercholesterolemia Benign essential hypertension Combined systolic and diastolic congestive heart failure Chronic kidney disease (CKD), stage III (moderate) Diabetic foot ulcer with osteomyelitis Complete heart block CHF (congestive heart failure) BPH (benign prostatic hyperplasia) Proteinuria Hyperlipidemia Essential hypertension Normally functioning cardiac pacemaker present Chronic right heart failure Heart block CKD (chronic kidney disease) Hypertension Type 2 diabetes mellitus Pacemaker Surgical History History of amputation of toe History of cardiac pacemaker (~04/15/20) Family History Mother CVA (cerebral vascular accident) Diabetes Social History Housing: Apartment Alcohol intake: never Patient Tobacco Use Status: Never used Tobacco Tobacco use type: Cigarette e-Cigarette/Vaping Use: Never Used Second Hand Smoke Exposure: No service: Yes Current occupational status: employed Cognitive needs: No Hearing needs: No Vision needs: No Questionnaire Thrive Questionnaire Date Thrive assessed: 10/22/24 NEETA-7 AMB Questionnaire NEETA-7 Date NEETA - 7 assessed: 10/22/24 Source: Developed by Drs. Guille Fam, Simran Mcginnis, Sohan Cardenas and colleagues, with an educational fausto from [employer]. Review of Systems Const Denies headache(s) Eyes Denies loss of vision ENT Denies vertigo, Denies dizziness, Denies headache(s) and Denies sore throat Card Denies chest pain, Denies leg edema and Denies lightheadedness Resp Denies cough, Denies hemoptysis and Denies wheezing GI Denies abdominal pain, Denies melena, Denies constipation, Denies diarrhea and Denies vomiting Denies dysuria, Denies urinary frequency and Denies urinary urgency Musc Denies arthralgias, Denies joint swelling, Denies numbness and Denies tingling Neuro Denies Abnormal speech present, Denies behavioral changes, Denies vertigo, Denies dizziness, Denies headache(s), Denies loss of vision, Denies memory loss, Denies numbness and Denies tingling Psych Denies anxiety, Denies behavioral changes, Denies depression, Denies memory loss and Denies panic attacks Rayshawn/Lymph Denies easy bleeding and Denies easy bruising Aller/Immun Denies wheezing Physical exam (Primary Care) Tobacco/Smoking Status: Tobacco use Status Tobacco use date assessed 10/22/24 10/22/24 14:24 Patient Tobacco Use Status Never used Tobacco 01/25/25 09:54 Tobacco use type Cigarette 10/22/24 14:24 e-Cigarette/Vaping Use Never Used 10/22/24 14:24 Thrive Assessment: Date of Thrive Assessment Date Thrive assessed 10/22/24 10/22/24 14:24 Const General: healthy appearing, no acute distress, alert and awake Nutritional Appearance: well nourished Orientation/consciousness: oriented to person, oriented to place and oriented to time HENMT Ears: TM's normal bilaterally General nose exam: Normal nasal mucous membranes and turbinates present Eyes Conjunctivae: conjunctivae normal Sclerae: sclerae normal Pupils: Equal, round and reactive pupils present Neck Neck: Yes no lymphadenopathy and Yes no JVD Thyroid: Thyroid normal Carotids: no bruits Resp Effort & Inspection: normal respiratory effort and not tachypneic Auscultation: no crackles, no rales, no rhonchi and no wheezes Cardio Rate: regular rate Rhythm: regular rhythm Heart sounds: no murmurs and normal S1 and S2 GI Palpation (GI): Soft to palpation, nontender, no hepatomegaly and no splenomegaly Auscultation: normal bowel sounds Skin General skin exam: no rashes or lesions noted and dry skin Neuro General: oriented to person, oriented to place and oriented to time Cranial nerves: Yes Equal, round and reactive pupils present Speech: No Abnormal speech present Gait exam (Neuro): Normal gait present Motor exam (neuro): no tremor noted Extrem Right upper extremity: full ROM Left upper extremity: full ROM Right lower extremity: full ROM, edema, lower leg Details: pitting edema Details: 1+ and ankle Details: edema Details: 2+ Left lower extremity: full ROM, lower leg Details: pitting edema Details: 1+ and ankle Details: pitting edema Details: 2+ Psych Mental Status: mental status grossly normal Speech and movement: Normal speech and movement present Affect: normal affect Attitude: cooperative Thought process: Normal thought process present Results AMB Hemoglobin A1c AMB Hemoglobin A1c 7.0 % Last Edit by VALENTINE Ordoñez on 02/18/25 16:05 Results Reviewed Results Reviewed: Laboratory Tests 01/02/25 11:40 WBC 6.1 RBC 4.45 L Hgb 11.7 L Hct 36.2 L MCV 81.3 MCH 26.3 L MCHC 32.3 RDW 14.0 Plt Count 203 D Sodium 141 Potassium 4.1 Chloride 109 H Carbon Dioxide 29 Anion Gap 7 L BUN 26 H Creatinine 1.58 H Estimated GFR 45 Random Glucose 112 Calcium 9.1 Urine Color Yellow Urine Appearance Clear Urine pH 6.5 Ur Specific Warren <= 1.005 Urine Protein Negative Urine Glucose (UA) Negative Urine Ketones Negative Urine Blood Negative Urine Nitrite Negative Ur Leukocyte Esterase Negative Coding Assessment & Plan Assessment & Plan Orders: Orders AMB Hemoglobin A1c Today E11.29 - Type 2 diabetes mellitus with other diabetic kidney complication
[2025-02-18 15:24] VITALS: BP 140/70; PULSE 69; TEMP 36.3; O2SAT 97; BMI 37.1
== END 2025-02-18 16:03 | disposition home or self-care (01) ==
PROVIDERS: PCP Internal Medicine
DX: E11.29 Type 2 diabetes mellitus with other diabetic kidney complication (principal)

== ENCOUNTER → 2025-02-18 14:50 | Outpatient (BNVA) | payer BC, SELFPAY | PROVIDERS: PCP Internal Medicine; Visit Provider Internal Medicine | DX: E11.22 Type 2 diabetes mellitus with diabetic chronic kidney disease (principal); E11.29 Type 2 diabetes mellitus with other diabetic kidney complication; E78.5 Hyperlipidemia, unspecified; I12.9 Hypertensive chronic kidney disease with stage 1 through stage 4 chronic kidney disease, or unspecified chronic kidney disease; N18.32 Chronic kidney disease, stage 3b; I48.92 Unspecified atrial flutter; E66.9 Obesity, unspecified; E55.9 Vitamin D deficiency, unspecified; E78.00 Pure hypercholesterolemia, unspecified; I44.2 Atrioventricular block, complete; I10 Essential (primary) hypertension; Z68.37 Body mass index [BMI] 37.0-37.9, adult | CPT/HCPCS: 83036 ==

== ENCOUNTER → 2025-02-26 23:59 | Outpatient (BNV) | payer BC, SELFPAY ==
--- NOTE | 2025-02-27 20:50 | A.OFFVIS_ITS ---
Intake Visit Reasons: Remote HF monitoring- Biotronik Allergies regadenoson [From Lexiscan] Adverse Reaction (Severe, Verified 02/18/25 15:48) seizure type activity PFSH Medical History Liver mass Vitamin D deficiency Obesity (BMI 30-39.9) Pure hypercholesterolemia Benign essential hypertension Combined systolic and diastolic congestive heart failure Chronic kidney disease (CKD), stage III (moderate) Diabetic foot ulcer with osteomyelitis Complete heart block CHF (congestive heart failure) BPH (benign prostatic hyperplasia) Proteinuria Hyperlipidemia Essential hypertension Normally functioning cardiac pacemaker present Chronic right heart failure Heart block CKD (chronic kidney disease) Hypertension Type 2 diabetes mellitus Pacemaker Surgical History History of amputation of toe History of cardiac pacemaker (~04/15/20) Family History Mother CVA (cerebral vascular accident) Diabetes Social History Housing: Apartment Alcohol intake: never Patient Tobacco Use Status: Never used Tobacco Tobacco use type: Cigarette e-Cigarette/Vaping Use: Never Used Second Hand Smoke Exposure: No service: Yes Current occupational status: employed Cognitive needs: No Hearing needs: No Vision needs: No Office Procedures Cardiac Device Check Cardiac Device Check Details: Date of service- 02/26/2025; based on impedance data and physiological variables, there is no evidence of worsening congestive heart failure. [id number] Cardiac Device Interrogation, cardio physiologic monitor Procedure code (CPT) selection complete Assessment & Plan Assessment & Plan (1) Normally functioning cardiac pacemaker present: Code(s): Z95.0 - Presence of cardiac pacemaker Category: Medical (2) Cardiomyopathy: Code(s): I42.9 - Cardiomyopathy, unspecified Category: Medical Plan x Coding Level of Care Code Procedure Only Diagnoses Normally functioning cardiac pacemaker present Z95.0 Cardiomyopathy I42.9 CPT Codes Cardiac Device Check - Cardiac Device 15: [id number] Cardiac Device I nterrogation, cardio physiologic monitor ([id number])
== END ==
PROVIDERS: PCP Internal Medicine; Visit Provider Internal Medicine
DX: I42.9 Cardiomyopathy, unspecified (principal); Z95.0 Presence of cardiac pacemaker
CPT/HCPCS: 93297

== ENCOUNTER 2025-03-04 15:15 | Outpatient (AMB) | payer BC, SELFPAY ==
--- NOTE | 2025-03-04 15:19 | A.OFFVIS_ITS ---
Vital Signs 03/04/25 15:20 Height 5 ft 9 in Weight 249 lb 1.957 oz BMI 36.8 BP 80/56 L Blood Pressure Location Lt brachial Position Sitting Pulse 69 Pulse Source Pulse Oximeter Intake Visit Reasons: Follow up/Discuss rescheduling cath Tax Manager Public Required: No Allergies regadenoson [From Lexiscan] Adverse Reaction (Severe, Verified 03/04/25 15:21) seizure type activity Medication List - Last Reconciled 03/04/25 by MADDIE King alcohol swabs (BD Alcohol Swabs) 1 pad topical QID amlodipine 5 mg PO DAILY apixaban (Eliquis) 5 mg PO BID 90 days atorvastatin 20 mg PO BEDTIME 90 days blood sugar diagnostic (OneTouch Verio test strips) 1 strip miscellaneous TID 30 days blood sugar diagnostic (OneTouch Ultra Test strips) As directed -tests 4 X/day blood-glucose meter (Interactive InvestorTouch Ultra2 Meter) As directed tests 4 X/day blood-glucose sensor (FreeStyle Tish 3 Sensor device) As directed blood-glucose,double end tenon operator,cont (FreeStyle Tish 3 [place]) As directed bumetanide 2 mg PO BID 30 days carvedilol 12.5 mg PO BID cholecalciferol (vitamin D3) 50 mcg PO DAILY 90 days hydralazine 100 mg PO BID insulin glargine (Basaglar KwikPen U-100 Insulin) 10 units (0.1 mL) subcut QPM 30 days isosorbide mononitrate ER 60 mg PO DAILY 90 days lancets As directed lancets (Interactive InvestorTouch UltraSoft Lancets) As directed-tests 4 X/day pen needle, diabetic As directed spironolactone 50 mg (2 x 25 mg) PO QAM tamsulosin 0.4 mg PO DAILY 90 days Trulicity (dulaglutide) 1.5 mg (0.5 mL) subcut QWEEK 30 days NS HPI HPI Follow up/Discuss rescheduling cath: Details: Quintin is a 60-year-old male past medical history of hypertension, hyperlipidemia, diabetes, chronic kidney disease, right heart failure, dual- chamber pacemaker, brief NSVT, recent echos showing EF 35-40%, recent persistent atrial flutter on anticoagulation who presents for follow-up. Today he reports that he has been been doing well since his last visit. He did have the cardioversion scheduled but he says he did not take Eliquis that morning. The procedure was not done. He also had the cardiac catheterization scheduled and he canceled the appointment in February. He wanted to hear about the procedure again and to make sure he had a ride. At this time he has been feeling generally well. 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 He does not notice any heart palpitations. No shortness of breath, PND, orthopnea or edema. No lightheadedness, presyncope, syncope. No chest discomfort at rest or with activity. He is taking his meds as directed. His significant other is on the phone during this visit [facility] Medical History Liver mass Vitamin D deficiency Obesity (BMI 30-39.9) Pure hypercholesterolemia Benign essential hypertension Combined systolic and diastolic congestive heart failure Chronic kidney disease (CKD), stage III (moderate) Diabetic foot ulcer with osteomyelitis Complete heart block CHF (congestive heart failure) BPH (benign prostatic hyperplasia) Proteinuria Hyperlipidemia Essential hypertension Normally functioning cardiac pacemaker present Chronic right heart failure Heart block CKD (chronic kidney disease) Hypertension Type 2 diabetes mellitus Pacemaker Surgical History History of amputation of toe History of cardiac pacemaker (~04/15/20) Family History Mother CVA (cerebral vascular accident) Diabetes Social History Housing: Apartment Alcohol intake: never Patient Tobacco Use Status: Never used Tobacco Tobacco use type: Cigarette e-Cigarette/Vaping Use: Never Used Second Hand Smoke Exposure: No service: Yes Current occupational status: employed Cognitive needs: No Hearing needs: No Vision needs: No Review of Systems Const All systems reviewed & are unremarkable except as noted in HPI and below ENT Denies dizziness Card Denies chest pain, Denies chest pain at rest, Denies chest pain with activity, Denies rapid heart rate, Denies pedal edema, Denies edema, Denies leg edema, Denies lightheadedness, Denies palpitations, Denies dyspnea, Denies dyspnea on exertion and Denies orthopnea Resp Denies cough, Denies dyspnea and Denies dyspnea on exertion GI Denies hematochezia and Denies change in stool character Musc Denies abnormal gait, Denies limited range of motion, Denies muscle cramps, Denies muscle weakness, Denies numbness, Denies radiating pain into limb, Denies stiffness and Denies tingling Neuro Denies abnormal gait, Denies dizziness, Denies numbness and Denies tingling Endo Denies palpitations Physical Exam Vital Signs: BMI result Body Mass Index 36.8 Const General: cooperative, healthy appearing, comfortable and no acute distress Orientation/consciousness: patient oriented x3 Neck Neck: Yes normal visual inspection Resp Effort & Inspection: normal respiratory effort Auscultation: clear to auscultation bilaterally, no rales, no rhonchi and no wheezes Cardio Rate: regular rate Rhythm: regular rhythm Heart sounds: S1 normal heart sound present, S2 normal heart sound present, no gallops, no murmurs and no rubs Neuro General: patient oriented x3 Extrem General: Yes normal to inspection, No no pedal edema and No calf tenderness Psych Appearance: grossly normal Mental Status: mental status grossly normal Speech and movement: Normal speech and movement present Assessment & Plan Assessment & Plan (1) Cardiomyopathy: Code(s): I42.9 - Cardiomyopathy, unspecified Category: Medical Plan: Newer finding of cardiomyopathy with Echocardiogram 09/28/2023 showing EF 35- 40%, mild LVH. Echo done 06/26/2020 showed normal EF. A repeat echocardiogram was done 10/12/2024 again showing EF 35-40%. It is unknown at this time if this is ischemic versus nonischemic. He has been on medications for neurohormonal modulation including carvedilol, hydralazine, isosorbide. We have discussed cardiac catheterization with him on prior visit for further evaluation and he was initially not agreeable to proceed. Following last visit he was agreeable and did have the procedure scheduled but then canceled it. He now presents a gain asking questions and is willing to go forward. His significant other is on speaker phone and is agreeable to provide transportation. Risks of the procedure reviewed, all questions answered. Signs and symptoms of heart failure reviewed with him. Continues on Bumex 2 mg b.i.d. and Aldactone 50 mg daily. Continue carvedilol, hydralazine, isosorbide. He is not on Hamzah or Arb due to CKD. Will arrange for cardiac catheterization procedure. Preprocedure labs ordered. Cardiology follow-up 2 weeks post procedure. (2) Atrial flutter: Code(s): I48.92 - Unspecified atrial flutter Category: Medical Qualifiers: Atrial flutter type: unspecified Qualified Code(s): I48.92 - Unspecified atrial flutter Plan: Newer finding of atrial flutter, which has been persistent, with controlled V rate since 11/30/2024. He is on carvedilol for heart rate control. He was started on Eliquis for anticoagulation. He does report some fatigue, no shortness of breath or heart palpitations. Cardioversion had been planned however he did not take Eliquis the morning of the procedure and it was canceled. At this time will hold off on cardioversion since he is not having significant symptoms. Will proceed with cardiac catheterization as above. Continue carvedilol. Continue Eliquis. (3) Combined systolic and diastolic congestive heart failure: Code(s): I50.40 - Unspecified combined systolic (congestive) and diastolic (congestive) heart failure Category: Medical Qualifiers: Heart failure chronicity: unspecified Qualified Code(s): I50.40 - Unspecified combined systolic (congestive) and diastolic (congestive) heart failure Plan: Stable at present. Signs and symptoms of heart failure reviewed with him. He states full understanding. (4) Complete heart block: Comment: S/P pacemaker insertion on 04/15/2020 Code(s): I44.2 - Atrioventricular block, complete Category: Medical Plan: History of complete heart block. Has Biotronik dual-chamber pacemaker in place. Functioning normally on last office interrogation, 07/23/2024. Does have remote monitoring in use as well. (5) Normally functioning cardiac pacemaker present: Code(s): Z95.0 - Presence of cardiac pacemaker Category: Medical Plan: As above -followed on remote monitoring. (6) Essential hypertension: Code(s): I10 - Essential (primary) hypertension Category: Medical Plan: Blood pressure goal less than 130/80. Blood pressure initially low however we gave him 8 oz of water. Blood pressure rechecked by me later in visit, 108/68. Reviewed need for good hydration. No med changes made. (7) Hypersomnia: Code(s): G47.10 - Hypersomnia, unspecified Category: Medical Plan: Ordering sleep study has been ordered however not completed by him. Plan During the visit, I explained the necessity of cardiac catheterization to evaluate potential coronary artery obstructions as the cause of the patient's reduced ejection fraction. We discussed the benefits and risks of the procedure, including possible interventions such as stenting if needed. The patient was informed of the importance of taking Eliquis and maintaining good hydration to prevent hypotension. He understands the procedural risks, such as bleeding, contrast induce nephropathy, TX/ stroke and arterial damage, and agrees with the plan. We addressed his apprehensions related to his family's history of cardiac issues. The plan for procedure timing, leave from work, and post-procedure care was reviewed, and he was instructed to avoid heavy lifting and wrist strain post-intervention. Patient Instructions: - Follow pre-procedural medication instructions, including holding Eliquis. - Stay hydrated, particularly in warm weather, to prevent low blood pressure. - Arrange transportation and time off work for the procedure in the second week of March. - Refrain from heavy lifting and straining your wrist after the procedure. - Report any new symptoms, such as chest pain or palpitations, immediately. Patient was informed and verbally consented to the use of an ambient scribe for clinic note documentation during this visit. Visit time spent on chart review, interview, assessment, orders, documentation. Coding Level of Care Code Est Pt Level 4 (92505) Complex EM visit Add On G2211 Diagnoses Cardiomyopathy I42.9 Atrial flutter, unspecified type I48.92 Atrial flutter type: unspecified Combined systolic and diastolic congestive heart failure, unspecified HF chronicity I50.40 Heart failure chronicity: unspecified Complete heart block I44.2 Normally functioning cardiac pacemaker present Z95.0 Essential hypertension I10 Hypersomnia G47.10 Time Spent (min) 34
[2025-03-04 15:20] VITALS: BP 80/56; PULSE 69; BMI 36.8
--- OUTSIDE RECORDS SUMMARY | 2025-03-04 17:07 | XMS_ITS | Continuity of Care Document ---
Author Name [facility] Organization [facility] Care Team Providers Care Epic Ambulatory Specialists Name Role Phone [facility] Unavailable Unavailable Immunizations Combined list of available immunizations from the Department of Defense and Veterans Affairs facilities. Immunization Series Date Given Administered By Site Reaction Lot Number [id number] Code Drug On Air Host Status Comments Source INFLUENZA, SEASONAL, INJECTABLE 2017 [...] complet ed [facility] INFLUENZA, UNSPECIFIED FORMULATION 1996 Reynaldo BECK 88 complet ed [facility]
== END 2025-03-04 16:13 | disposition home or self-care (01) ==
LOC: HO.HCS 15:16
PROVIDERS: PCP Internal Medicine; Visit Provider Nurse Practitioner Family
DX: I42.9 Cardiomyopathy, unspecified (principal); I48.92 Unspecified atrial flutter; I50.40 Unspecified combined systolic (congestive) and diastolic (congestive) heart failure; I44.2 Atrioventricular block, complete; Z95.0 Presence of cardiac pacemaker; I10 Essential (primary) hypertension; G47.10 Hypersomnia, unspecified
CPT/HCPCS: 99214

== ENCOUNTER 2025-03-29 15:27 | Outpatient (REF) | payer BC, SELFPAY ==
--- OUTSIDE RECORDS SUMMARY | 2018-06-16 10:11 | XMS_ITS | Continuity of Care Document ---
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 INFLUENZA, UNSPECIFIED FORMULATION 1996 Reynaldo BECK 88 complet ed [facility]
--- OUTSIDE RECORDS SUMMARY | 2025-03-29 15:30 | XMS_ITS | Patient Health Record ---
Author Organization [facility] Address [address] [place] [address] Care Team Providers Care Financial Services Professional Name Role Phone Quan RUCKER Greenwood Primary Care Provider Unava Candy Wells Unavailable [phone] Allergies No Known Allergies Results Component Value [...] TAKE 1 TABLET BY MOUTH AT BEDTIME Oral; Duration: 90 Active Tamsulosin HCl 0.4 MG Oral; Duration: 90 Active Isosorbide Mononitrate ER 60 MG Oral; Duration: 90 Active amLODIPine Besylate 10 MG TAKE 1 TABLET BY MOUTH DAILY Oral; Duration: 90 Active Vitamin D3 50 MCG (1999 UT) TAKE 1 CAPSULE BY MOUTH DAILY Oral; Duration: 90 E559,Unavaila ble Active Extra Depth Orthopedic Shoes (1 Pair) with Customized Heat Molded Multidensity Innersoles (3 Pair) as directed Dx: NIDDM/Polyneuropathy (E11.42), Hammertoe Foot Deformity (M20.41,M20.42), Preulcerative Skin Lesion(s) (L85.1 08/07/2024 Active EngageTouch Ultra 2 w/Device USE DIRECTED TO TEST FOUR TIMES DAILY; Duration: 30 Active Cephalexin 500 MG 1 capsule Orally Thr ee times a day; Duration: 10 days Active Labetalol HCl 100 MG Oral; Duration: 90 Active Trulicity 0.75 MG/0.5ML Subcutaneous; Duration: 28 Active Walking Boot/Pneumatic As directed Wear Daily; Duration: Until further notice 01/17/2024 Active hydrALAZINE HCl 100 MG TAKE 1 TABLET BY MOUTH THREE TIMES DAILY Oral; Duration: 90 Active Carvedilol 12.5 MG TAKE 1 TABLET BY TL TH TWICE DAILY. STOP LABETOLOL AND. START CARVEDILOL Oral; Duration: 30 Days Active Spironolactone 25 MG TAKE 2 TABLETS BY MOUTH EVERY MORNING Oral; Duration: 90 Active Eliquis 5 MG TAKE 1 TABLET BY TL TH TWICE DAILY FOR ATRIAL FIBRILLATION Oral; Duration: 30 Days Active Bumetanide 2 MG TAKE 1 TABLET BY TL TH TWICE DAILY Oral; Duration: 90 Active Immunizations Vaccine Route Administration Date [...] Problem Status W/U Status Risk Notes Problem Polyneuropathy due to type 2 diabetes mellitus (485895940) Type 2 diabetes mellitus with diabetic polyneuropathy (E11.42) Active confirmed Problem Acquired hammer toe of left foot (6082529797035548 ) Hammertoe of left foot (M20.42) Active confirmed Problem Acquired hammer toe of right foot (5234822851218992 ) Hammertoe of right foot (M20.41) Active confirmed Problem Diabetic neuropathic arthropathy (057900569) 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) Active confirmed Problem Arthropathy associated with a neurological disorder (05396453) Charcot's joint of foot, right (M14.671) Active confirmed Vital Signs Blood pressure diastolic 90 mm Hg 02/12/2025 Height 5ft9in in 02/12/2025 Blood pressure systolic 130 mm Hg 02/12/2025 Weight 250 lbs 02/12/2025 BMI 36.91 kg/m2 02/12/2025 Encounters Encounter Location Date Provider Diagnosis [address] [address] 08/07/2024 Candy Sandhu Type 2 diabetes mellitus with diabetic polyneuropathy E11.42 ; Charcot's joint of foot, right M14.671 ; Tinea unguium B35.1 ; Type 2 diabetes mellitus with Charcot's joint of right foot E11.610 ; Other hammer toe(s) (acquired), right foot M20.41 and Other hammer toe(s) (acquired), left foot M20.[address] [address] 10/30/2024 Candy Sandhu Charcot's joint of foot, [...] exposed L97.522 and Toe osteomyelitis, left M86.[address] [address] 11/06/2024 Candy Sandhu Charcot's joint of foot, right M14.671 ; Cellulitis of foot, left L03.116 ; Type 2 diabetes mellitus with diabetic polyneuropathy E11.42 ; Type 2 diabetes mellitus with Charcot's joint of right foot E11.610 ; Other hammer toe(s) (acquired), left foot M20.42 and Neuropathic ulcer 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 L97.[address] [address] 11/13/2024 Candy Sandhu Charcot's joint of foot, right M14.671 ; Cellulitis of foot, left L03.116 ; Type 2 diabetes mellitus with diabetic polyneuropathy E11.42 ; Type 2 diabetes mellitus with Charcot's joint of right foot E11.610 ; Other hammer toe(s) (acquired), left foot M20.42 and Neuropathic ulcer 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 L97.522 [facility] [address] [address] 02/12/2025 Cnady Sandhu Type 2 diabetes mellitus with diabetic polyneuropathy E11.42 and Tinea unguium B35.[address] [facility] [address] [address] 06/06/2024 Candy Perica [facility] [address] [address] 10/22/2024 Candy Perica [facility] [address] [address] 10/30/2024 Candy Perica [facility] [address] [address] 10/30/2024 Candy Perica [facility] [address] [address] 10/30/2024 Candy Perica [facility] [address] [address] 10/30/2024 Candy Perica [facility] [address] [address] 10/30/2024 Candy Perica [facility] [address] [address] 10/31/2024 Candy Perica [facility] [address] [address] 01/30/2025 Candy Sandhu Assessments Encounter Date Diagnosis (ICD [...] joint of foot, right (ICD-10 - M14.671) 02/12/2025 Type 2 diabetes mellitus with diabetic polyneuropathy (ICD-10 - E11.42) 02/12/2025 Tinea unguium (ICD-10 - B35.1) 11/06/2024 Type 2 diabetes mellitus with diabetic polyneuropathy (ICD-10 - E11.42) 11/13/2024 Cellulitis of foot, left (ICD-10 - L03.116) 10/30/2024 Type 2 diabetes mellitus with diabetic polyneuropathy (ICD-10 - E11.42) 08/07/2024 Tinea unguium (ICD-10 - B35.1) 08/07/2024 Charcot's joint of foot, right (ICD-10 - M14.671) 08/07/2024 Type 2 diabetes mellitus with Charcot's [...] CARE INSTRUCTIONS. pdf (WOUND CARE INSTRUCTIONS. pdf) 10/30/2024 Toe osteomyelitis, left (ICD-10 - M86.9) Plan Of Treatment Pending Test Test Name Order Date MRI : Foot, left 10/30/2024 X ray : Foot, left 3V 10/30/2024 X ray : Foot, right 3V 01/17/2024 X ray : Ankle, right 3V 01/17/2024 Next Appt Details Provider Name:Candy ruiz, 05/14/2025 03:15:00 PM, [address] [place] [address], [phone], Insurance Providers Payer Name Payer Address Payer Phone Subscriber Number Group Number Insured Name Patient Relationship to Insured Coverage Start Date Coverage End Date [facility] [id number] [place] [address] [phone] [id number] Quintin Chacon Self - patient is the insured Medical (General) History Medical History History ICD Code type II diabetes Heart disease Chicken pox Pacemaker Surgical History Surgery Date(Month/Year) cardiac pacemeker 04/15/2020 amputation, right toe 12/23/2020
--- OUTSIDE RECORDS SUMMARY | 2025-03-29 15:30 | XMS_ITS | Clinical Summary ---
Author Organization [facility] Facility Address [address] [address] Care Team Providers Care Industrial Ecology Technician Name Role Phone Ronnell Glass MD Primary Care Provider [phone] Medications amLODIPine (NORVASC) 10 MG tablet Take [...] to the 100-120s range today. -Diabetic diet -Elfgt-ew-fqqq checks with meals and at bedtime -Patient takes metformin 1000 mg twice daily which was held at admission First degree atrioventricular block 11/14/2020 Overview (11/14/2020): Last Assessment & Plan: EKG does show first-degree AV block with AR 310 ms. Bradycardic after clonidine. Echocardiogram was [...] Hemoglobin A1C 11/27/2020 08/29/2020 Influenza Vaccine (#1) 2025 Hepatitis B Vaccine Aged Out No [...] % PVNMA 08/29/2020 us [facility] Conversion LAB [id number] LICITED RESULTS Final Result PVNMA from Last 3 Months or Most Recently Relevant to Health Maintenance [place] [address] Care Teams Industrial Ecology Technician Relationship Specialty Start Date End Date Ronnell Glass MD [address] [place], [place] [id number] PCP - General 09/29/20
[2025-03-29 15:42] LABS: MANUAL DIFF FLAG NO
[2025-03-29 16:20] LABS: Appearance Urine Clear; Glucose Urine UA Negative (Negative); PH 6.5 (5.0-9.0); Specific Gravity - Urine 1.010 (1.005-1.025)
[2025-03-29 16:29] LABS: Hematocrit 37.3 % (42.0-52.0); Hemoglobin 12.3 g/dl (14.0-18.0); Imm Gran Abs Auto 0.03 X10*3/uL (0.00-0.03); Imm Gran Pct Auto 0.5 % (0.0-0.4); Lymphocytes Absolute Auto 1.3 X10*3/uL (1.2-4.9); Mean Corpuscular HGB Conc 33.0 g/dl (31.0-36.0); Mean Corpuscular Hemoglobin 26.3 pg (27.0-33.0); Mean Corpuscular Volume 79.7 fL (80.0-98.0); NRBC Abs Auto 0.000 X10*3/uL (0.0-0.012); NRBC Pct Auto 0.0 /100WBC (0.0-0.2); Platelet Count 232 X10*3/uL (160-400); Red Blood Count 4.68 X10*6/uL (4.60-5.80); White Blood Count 6.0 X10*3/uL (4.8-10.8)
[2025-03-29 16:41] LABS: INTERNATIONAL NORM RATIO 1.3 (0.9-1.1); Prothrombin Time 14.5 SEC (10.9-12.4)
[2025-03-29 16:47] LABS: Hemoglobin A1C 159.8582 umol/L; Total Hemoglobin (HGBA1C) 3179.0918 umol/L
[2025-03-29 16:57] LABS: Microalbum/Creatinine Ratio Ur 15.1 ug/mg cr (<30)
[2025-03-29 17:07] LABS: Alanine Aminotransferase 30 U/L (0-40); Albumin Level 4.1 g/dL (3.5-5.0); Alkaline Phosphatase 63 U/L (39-117); Anion Gap 9 (12-20); Aspartate Amino Transferase 30 U/L (5-37); Blood Urea Nitrogen 32 mg/dL (9-16); Calcium 9.1 mg/dL (8.4-10.2); Carbon Dioxide 31 mmol/L (22-29); Chloride 103 mmol/L (96-108); Cholesterol 116 mg/dL (<200); Estimated Glomerular Filt Rate 35; HDL Cholesterol 33 mg/dL (>40); Potassium 4.2 mmol/L (3.3-5.1); Sodium 139 mmol/L (135-145); Total Protein 7.4 g/dL (6.5-8.0); Triglycerides 63 mg/dL (<150)
== END 2025-03-29 15:28 | disposition home or self-care (01) ==
LOC: HO.LAB 15:27
PROVIDERS: PCP Internal Medicine; Visit Provider Nurse Practitioner Family
DX: E11.610 Type 2 diabetes mellitus with diabetic neuropathic arthropathy (principal); I42.9 Cardiomyopathy, unspecified; E55.9 Vitamin D deficiency, unspecified; S93.401S Sprain of unspecified ligament of right ankle, sequela; E78.00 Pure hypercholesterolemia, unspecified; I10 Essential (primary) hypertension; E11.621 Type 2 diabetes mellitus with foot ulcer; E11.69 Type 2 diabetes mellitus with other specified complication; L97.509 Non-pressure chronic ulcer of other part of unspecified foot with unspecified severity; M86.9 Osteomyelitis, unspecified; N18.32 Chronic kidney disease, stage 3b; D63.1 Anemia in chronic kidney disease; I47.29 Other ventricular tachycardia
CPT/HCPCS: 36415; 80053; 80061; 81003; 82043; 82306; 82570; 83036; 84480; 85025; 85610

== ENCOUNTER → 2025-04-02 23:59 | Outpatient (BNV) | payer BC, SELFPAY | PROVIDERS: PCP Internal Medicine; Visit Provider Internal Medicine Cardiovascular Disease | DX: I42.9 Cardiomyopathy, unspecified (principal); I50.20 Unspecified systolic (congestive) heart failure | CPT/HCPCS: 93458; 99152 ==

== ENCOUNTER 2025-04-16 13:11 | Outpatient (AMB) | payer BC, SELFPAY ==
--- OUTSIDE RECORDS SUMMARY | 2018-06-16 10:11 | XMS_ITS | Continuity of Care Document ---
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 Immunization Series Date Given Administered By Site Reaction Lot Number CVX Code Drug Pool Nurse Status Comments Source INFLUENZA, SEASONAL, INJECTABLE 2017 141 complet ed Site: Left Deltoid [facility] FLU,3 YRS (HISTORICAL) 2011 88 complet ed Site: Left Deltoid [facility] FLU,3 YRS (HISTORICAL) 2010 88 complet ed Site: Left Deltoid [facility] FLU,3 YRS (HISTORICAL) 2009 MISHA MENA 88 complet ed Site: Left Deltoid [facility] NOVEL INFLUENZA-H1N 1-09, ALL FORMULATIONS 2008 128 complet ed Sanofi Pasteur [facility] FLU,3 YRS (HISTORICAL) 2008 INDY GR 88 complet ed [facility] FLU,3 YRS (HISTORICAL) 2007 88 complet ed Site: Left Deltoid [facility] FLU,3 YRS (HISTORICAL) 2006 88 complet ed Site: Left Deltoid [facility] FLU,3 YRS (HISTORICAL) 2005 88 complet ed [facility] FLU,3 YRS (HISTORICAL) 2004 JOLYNN SALDIVAR 88 comple t ed [facility] FLU,3 YRS (HISTORICAL) 2003 JOLYNN SALDIVAR 88 comple t ed [facility] FLU,3 YRS (HISTORICAL) 2002 JOLYNN SALDIVAR 88 comple t ed [facility] FLU,3 YRS (HISTORICAL) 1999 SONDRA BARLOW 88 comple t ed [facility] FLU,3 YRS (HISTORICAL) 1998 MELANIA LARSON 88 complet ed [facility] INFLUENZA, UNSPECIFIED FORMULATION 1996 Reynaldo BECK 88 complet ed [facility]
[2025-04-16 13:23] VITALS: BP 80/62; PULSE 80; BMI 37.7
--- NOTE | 2025-04-16 13:23 | A.OFFVIS_ITS ---
Vital Signs 04/16/25 13:23 Height 5 ft 9 in Weight 255 lb 4.725 oz BMI 37.7 BP 80/62 L Blood Pressure Location Lt brachial Position Sitting Pulse 80 Pulse Source Pulse Oximeter Intake Visit Reasons: 2 wk s/p cath Cigar Head Holer Required: No Allergies regadenoson (From YellowBrckiscan) Adverse Reaction (Severe, Verified 04/16/25 13:26) seizure type activity Medication List - Last Reconciled 04/16/25 by MADDIE King alcohol swabs (BD Alcohol Swabs) 1 pad topical QID amlodipine 5 mg PO DAILY apixaban (Eliquis) 5 mg PO BID 90 days atorvastatin 20 mg PO BEDTIME 90 days blood sugar diagnostic (Hanzo ArchivesTouch Verio test strips) 1 strip miscellaneous TID 30 days blood sugar diagnostic (OneTouch Ultra Test strips) As directed -tests 4 X/day blood-glucose meter (Hanzo ArchivesTouch Ultra2 Meter) As directed tests 4 X/day blood-glucose sensor (FreeStyle Tish 3 Sensor device) As directed blood-glucose,analyst geochemical prospecting,cont (FreeStyle Tish 3 [place]) As directed bumetanide 2 mg PO BID 30 days carvedilol 12.5 mg PO BID cholecalciferol (vitamin D3) 50 mcg PO DAILY 90 days hydralazine 100 mg PO BID insulin glargine (Basaglar KwikPen U-100 Insulin) 10 units (0.1 mL) subcut QPM 30 days Held on 06/22/24. Instructions: Doctor's Order isosorbide mononitrate ER 60 mg PO DAILY 90 days lancets As directed lancets (Snugg Homeuch UltraSoft Lancets) As directed-tests 4 X/day pen needle, diabetic As directed spironolactone 50 mg (2 x 25 mg) PO QAM tamsulosin 0.4 mg PO DAILY 90 days Trulicity (dulaglutide) 1.5 mg (0.5 mL) subcut QWEEK 30 days NS HPI HPI 2 wk s/p cath: Details: Quintin is a 60-year-old male past medical history of hypertension, hyperlipidemia, diabetes, chronic kidney disease, right heart failure, dual- chamber pacemaker, brief NSVT, recent echos showing EF 35-40%, recent persistent atrial flutter on anticoagulation who underwent cardiac catheterization showing normal coronary arteries and now presents for follow-up. Today he reports that he has been been doing well since his last visit in February. 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 He does not notice any heart palpitations. No shortness of breath, PND, orthopnea or edema. No lightheadedness, presyncope, syncope. No chest discomfort at rest or with activity. Blood pressure running low. He is taking his meds as directed. His significant other is on the phone during this visit [facility] Medical History Liver mass Vitamin D deficiency Obesity (BMI 30-39.9) Pure hypercholesterolemia Benign essential hypertension Combined systolic and diastolic congestive heart failure Chronic kidney disease (CKD), stage III (moderate) Diabetic foot ulcer with osteomyelitis Complete heart block CHF (congestive heart failure) BPH (benign prostatic hyperplasia) Proteinuria Hyperlipidemia Essential hypertension Normally functioning cardiac pacemaker present Chronic right heart failure Heart block CKD (chronic kidney disease) Hypertension Type 2 diabetes mellitus Pacemaker Surgical History History of cardiac cath History of amputation of toe History of cardiac pacemaker (~04/15/20) Family History Mother CVA (cerebral vascular accident) Diabetes Social History Housing: Apartment Alcohol intake: never Patient Tobacco Use Status: Never used Tobacco Tobacco use type: Cigarette e-Cigarette/Vaping Use: Never Used Second Hand Smoke Exposure: No service: Yes Current occupational status: employed Cognitive needs: No Hearing needs: No Vision needs: No Review of Systems Const All systems reviewed & are unremarkable except as noted in HPI and below ENT Denies dizziness Card Denies chest pain, Denies chest pain at rest, Denies chest pain with activity, Denies rapid heart rate, Denies pedal edema, Denies edema, Denies leg edema, Denies lightheadedness, Denies palpitations, Denies dyspnea, Reports dyspnea on exertion and Denies orthopnea Resp Denies cough, Denies dyspnea and Reports dyspnea on exertion GI Denies hematochezia and Denies change in stool character Musc Denies abnormal gait, Denies limited range of motion, Denies muscle cramps, Denies muscle weakness, Denies numbness, Denies radiating pain into limb, Denies stiffness and Denies tingling Neuro Denies abnormal gait, Denies dizziness, Denies numbness and Denies tingling Endo Denies palpitations Physical Exam Vital Signs: Last Vital Signs Pulse 80 04/16/25 13:23 BP 80/62 L 04/16/25 13:23 BMI result Body Mass Index 37.7 Const General: cooperative, healthy appearing, comfortable and no acute distress Orientation/consciousness: patient oriented x3 Neck Neck: Yes normal visual inspection Resp Effort & Inspection: normal respiratory effort Auscultation: clear to auscultation bilaterally, no rales, no rhonchi and no wheezes Cardio Rate: regular rate Rhythm: regular rhythm Heart sounds: S1 normal heart sound present, S2 normal heart sound present, no gallops, no murmurs and no rubs Neuro General: patient oriented x3 Extrem Other: Right radial catheterization site well healed, easily palpable radial pulse and right hand assessment normal. General: Yes normal to inspection, No no pedal edema and No calf tenderness Psych Appearance: grossly normal Mental Status: mental status grossly normal Speech and movement: Normal speech and movement present Assessment & Plan Assessment & Plan (1) Cardiomyopathy: Code(s): I42.9 - Cardiomyopathy, unspecified Category: Medical Plan: Newer finding of cardiomyopathy with Echocardiogram 09/28/2023 showing EF 35-40%, mild LVH. Echo done 06/26/2020 showed normal EF. A repeat echocardiogram was done 10/12/2024 again showing EF 35-40%. Cardiac catheterization done 04/02/2025 showing normal coronary arteries his cardiomyopathy is nonischemic. He V paces 100%, which most likely contributes to cardiomyopathy. Will refer to electrophysiology for ORACLE BPM CONSULTANT. Reason for 3rd pacemaker lead reviewed with him in detail and he is agreeable to proceed. Blood pressure running low with systolic in the 80s. Will reduce dose of hydralazine and isosorbide. Continue carvedilol, Aldactone, Bumex. He is not on Hamzah or Arb due to CKD. Reviewed good hydration. Cardiology follow-up 3 months, sooner if needed. Anticipate this will be post ORACLE BPM CONSULTANT placement (2) Atrial flutter: Code(s): I48.92 - Unspecified atrial flutter Category: Medical Qualifiers: Atrial flutter type: unspecified Qualified Code(s): I48.92 - Unspecified atrial flutter Plan: Newer finding of atrial flutter, which has been persistent, with controlled V rate since 11/30/2024. Continue carvedilol for heart rate control. Continue Eliquis for anticoagulation. Prior Cardioversion had been planned however he did not take Eliquis the morning of the procedure and it was canceled. At this time he has no significant symptoms. Will continue with rate control management. (3) Combined systolic and diastolic congestive heart failure: Code(s): I50.40 - Unspecified combined systolic (congestive) and diastolic (congestive) heart failure Category: Medical Qualifiers: Heart failure chronicity: unspecified Qualified Code(s): I50.40 - Unspecified combined systolic (congestive) and diastolic (congestive) heart failure Plan: Stable at present. Signs and symptoms of heart failure reviewed with him. He states full understanding. (4) Complete heart block: Comment: S/P pacemaker insertion on 04/15/2020 Code(s): I44.2 - Atrioventricular block, complete Category: Medical Plan: History of complete heart block. Has Biotronik dual-chamber pacemaker in place. Functioning normally on last office interrogation, 07/23/2024. Does have remote monitoring in use as well. -interrogation from yesterday reviewed, a paced 14%, V paced 100%, battery 55%. (5) Normally functioning cardiac pacemaker present: Code(s): Z95.0 - Presence of cardiac pacemaker Category: Medical Plan: As above -followed on remote monitoring. (6) Essential hypertension: Code(s): I10 - Essential (primary) hypertension Category: Medical Plan: Blood pressure goal less than 130/80. Blood pressure low this visit and last visit. Will be reducing his hydralazine and isosorbide doses. (7) Hypersomnia: Code(s): G47.10 - Hypersomnia, unspecified Category: Medical Plan: Ordering sleep study previously ordered however not completed by him. Plan Time spent on chart review, documentation, interview and assessment Orders: Referrals Cardiac Electrophysiology Referral I42.9 - Cardiomyopathy, unspecified, Z95.0 - Presence of cardiac pacemaker Medications: New isosorbide mononitrate ER dose reduced 30 mg PO DAILY 90 tabs 1RF hydralazine dose reduced 50 mg PO BID 180 tabs 1RF 90 days Discontinued hydralazine Discontinued Reason: Doctor's Order 100 mg PO BID 90 tabs 0RF isosorbide mononitrate ER Discontinued Reason: Doctor's Order 60 mg PO DAILY 90 days 90 tabs 3RF Coding Level of Care Code Est Pt Level 4 (85053) Complex EM visit Add On G2211 Diagnoses Cardiomyopathy I42.9 Atrial flutter, unspecified type I48.92 Atrial flutter type: unspecified Combined systolic and diastolic congestive heart failure, unspecified HF chronicity I50.40 Heart failure chronicity: unspecified Complete heart block I44.2 Normally functioning cardiac pacemaker present Z95.0 Essential hypertension I10 Hypersomnia G47.10 Time Spent (min) 30
--- OUTSIDE RECORDS SUMMARY | 2025-04-16 13:58 | XMS_ITS | Clinical Summary ---
Author Organization [facility] Facility Address [address] [address] Care Team Providers Care Prosthetist Name Role Phone Ronnell Glass MD Primary Care Provider [phone]- [phone] Medications amLODIPine (NORVASC) 10 MG tablet Take [...] to the 100-120s range today. -Diabetic diet -Onbbk-dp-tgcv checks with meals and at bedtime -Patient takes metformin 1000 mg twice daily which was held at admission First degree atrioventricular block 11/14/2020 Overview (11/14/2020): Last Assessment & Plan: EKG does show first-degree AV block with MO 310 ms. Bradycardic after clonidine. Echocardiogram was [...] % PVNMA 08/29/2020 us Rtama Conversion LAB [id number] LICITED RESULTS Final Result PVNMA from Last 3 Months or Most Recently Relevant to Health Maintenance [place] [address] [id number] Care Teams Prosthetist Relationship Specialty Start Date End Date Ronnell Glass MD [address] [place], [place] [id number] PCP - General 09/29/20
--- OUTSIDE RECORDS SUMMARY | 2025-04-16 13:58 | XMS_ITS | Patient Health Record ---
[facility] Address [address] [facility] [place] [address] Care Team Providers Care Flame Burner Name Role Phone Quan RUCKER Nahma Primary Care Provider Unava Candy Wells Unavailable [phone] Allergies No Known Allergies Results Component Value [...] (M20.41,M20.42), Preulcerative Skin Lesion(s) (L85.1 08/07/2024 Active PromobucketTouch Ultra 2 w/Device USE DIRECTED TO TEST [...] Polyneuropathy due to type 2 diabetes mellitus (842582518) Type 2 diabetes mellitus with diabetic polyneuropathy (E11.42) Active confirmed Problem Acquired hammer toe of left foot (0825048422109839 ) Hammertoe of left foot (M20.42) Active confirmed Problem Acquired hammer toe of right foot (8453346038939749 ) Hammertoe of right foot (M20.41) Active confirmed Problem Diabetic neuropathic arthropathy (418446866) 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) Active confirmed Problem Arthropathy associated with a neurological disorder (79512046) Charcot's joint of foot, right (M14.671) Active confirmed Vital Signs Blood pressure diastolic 90 mm Hg 02/12/2025 Height 5ft9in in 02/12/2025 Blood pressure systolic 130 mm Hg 02/12/2025 Weight 250 lbs 02/12/2025 BMI 36.91 kg/m2 02/12/2025 Encounters Encounter Location Date Provider Diagnosis [address] [address] 08/07/2024 Candy Sandhu Type 2 diabetes mellitus with diabetic polyneuropathy E11.42 ; Charcot's joint of foot, right M14.671 ; Tinea unguium B35.1 ; Type 2 diabetes mellitus with Charcot's joint of right foot E11.610 ; Other hammer toe(s) (acquired), right foot M20.41 and Other hammer toe(s) (acquired), left foot M20.[address] [address] 10/30/2024 Candy Sandhu Charcot's joint of foot, [...] exposed L97.522 and Toe osteomyelitis, left M86.[address] [address] 11/06/2024 Candy Sandhu Charcot's joint of foot, right M14.671 ; Cellulitis of foot, left L03.116 ; Type 2 diabetes mellitus with diabetic polyneuropathy E11.42 ; Type 2 diabetes mellitus with Charcot's joint of right foot E11.610 ; Other hammer toe(s) (acquired), left foot M20.42 and Neuropathic ulcer 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 L97.[address] [address] 11/13/2024 Candy Sandhu Charcot's joint of foot, right M14.671 ; Cellulitis of foot, left L03.116 ; Type 2 diabetes mellitus with diabetic polyneuropathy E11.42 ; Type 2 diabetes mellitus with Charcot's joint of right foot E11.610 ; Other hammer toe(s) (acquired), left foot M20.42 and Neuropathic ulcer 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 L97.522 [facility] [address] [address] 02/12/2025 Candy Sandhu Type 2 diabetes mellitus with diabetic polyneuropathy E11.42 and Tinea unguium B35.1 [facility] [address] [address] 06/06/2024 Candy Perica [facility] [address] [address] 10/22/2024 Candy Perica [facility] [address] [address] 10/30/2024 Candy Perica [facility] [address] [address] 10/30/2024 Candy Perica [facility] [address] [address] 10/30/2024 Candy Perica [facility] [address] [address] 10/30/2024 Candy Perica [facility] [address] [address] 10/30/2024 Candy Perica [facility] [address] [address] 10/31/2024 Candy Perica [facility] [address] [address] 01/30/2025 Candy Sandhu Assessments Encounter Date Diagnosis [...] Details Provider Name:Candy ruiz, 05/14/2025 03:15:00 PM, [address] [place] [address], [phone], Insurance Providers Payer Name Payer Address Payer Phone Subscriber Number Group Number Insured Name Patient Relationship to Insured Coverage Start Date Coverage End Date [facility] [address] [place] [address] [id number] Quintin Chacon Self - patient is the insured Medical (General) History Medical History History ICD Code type II diabetes Heart disease Chicken pox Pacemaker Surgical History Surgery Date(Month/Year) cardiac pacemeker 04/15/2020 amputation, right toe 12/23/2020
--- OUTSIDE RECORDS SUMMARY | 2025-04-16 13:58 | XMS_ITS | Encounter Summary ---
Author Organization [facility] Address [address] [facility] [address] [place] [address] Phone Care Team Providers Care Rehabilitation Program Manager Name Role Phone Ronnell Glass MD Primary Care Provider [phone] [phone] Encounter Details Date Type Department Care Team (Late Contact Info) Description 10/12/2019 Procedure Pass OR Admitting Dept - Virtual Department [address] [place] [address] Social History Tobacco Use Types Packs/Day Years Used Date Smoking Tobacco: Never Smokeless Tobacco: Never Alcohol Use Standard Drinks/Week Comments Not Currently 0 (1 standard drink = 0.6 oz pur e alcohol) Sex and Gender Information Value Date Recorded Sex Assigned at Male 10/11/2019 9:42 AM EST Legal Sex Male 9:42 PM EDT Gender Identity Male 10/11/2019 9:42 AM EST Sexual Orientation Straight 10/11/2019 9: 42 AM EST 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 [place] Not on file Not on file Not on file documented as of this encounter Plan of Treatment Upcoming Encounters Date Type Department Care Team (Late Contact Info) Description 04/24/2025 3:00 PM EDT Office Visit [facility] [address], [address] [place] [address] Juma Lombardo MD [address] [place] [address] documented as of this encounter Visit Diagnoses Not on filedocumented in this encounter Care Teams Rehabilitation Program Manager Relationship Specialty Start Date End Date Ronnell Glass MD [address] [place] [address] [place] [address] PCP - General Internal Medicine 10/11/19 documented as of this encounter Additional Source Comments The information contained in this document represents components of the legal health record. It is not the complete legal health record.[facility]
== END 2025-04-16 14:13 | disposition home or self-care (01) ==
LOC: HO.HCS 13:12
PROVIDERS: PCP Internal Medicine; Visit Provider Nurse Practitioner Family
DX: I42.9 Cardiomyopathy, unspecified (principal); I48.92 Unspecified atrial flutter; I50.40 Unspecified combined systolic (congestive) and diastolic (congestive) heart failure; I44.2 Atrioventricular block, complete; Z95.0 Presence of cardiac pacemaker; I10 Essential (primary) hypertension; G47.10 Hypersomnia, unspecified
CPT/HCPCS: 99214

== ENCOUNTER → 2025-04-22 23:59 | Outpatient (BNV) | payer BC, SELFPAY ==
--- NOTE | 2025-04-27 16:59 | MHC.OFFVIS ---
Intake Visit Reasons: Remote device check- Biotronik Allergies regadenoson (From Lexiscan) Adverse Reaction (Severe, Verified 04/16/25 13:26) seizure type activity [facility] History Liver mass Vitamin D deficiency Obesity (BMI 30-39.9) Pure hypercholesterolemia Benign essential hypertension Combined systolic and diastolic congestive heart failure Chronic kidney disease (CKD), stage III (moderate) Diabetic foot ulcer with osteomyelitis Complete heart block CHF (congestive heart failure) BPH (benign prostatic hyperplasia) Proteinuria Hyperlipidemia Essential hypertension Normally functioning cardiac pacemaker present Chronic right heart failure Heart block CKD (chronic kidney disease) Hypertension Type 2 diabetes mellitus Pacemaker Surgical History History of cardiac cath History of amputation of toe History of cardiac pacemaker (~04/15/20) Family History Mother CVA (cerebral vascular accident) Diabetes Social History Housing: Apartment Alcohol intake: never Patient Tobacco Use Status: Never used Tobacco Tobacco use type: Cigarette e-Cigarette/Vaping Use: Never Used Second Hand Smoke Exposure: No service: Yes Current occupational status: employed Cognitive needs: No Hearing needs: No Vision needs: No Office Procedures Cardiac Device Check Cardiac Device Check Details: Date of service- 04/22/2025 ; Battery life 50%s; normal lead parameters; AP 13%; [employer] 100%; atrial burden 45%;. Overall normal device function. [id number] Cardiac Device Interrogation, pacemaker Procedure code (CPT) selection complete Assessment & Plan Assessment & Plan (1) Normally functioning cardiac pacemaker present: Code(s): Z95.0 - Presence of cardiac pacemaker Category: Medical (2) Atrial flutter: Code(s): I48.92 - Unspecified atrial flutter Category: Medical Qualifiers: Atrial flutter type: unspecified Qualified Code(s): I48.92 - Unspecified atrial flutter (3) Cardiomyopathy: Code(s): I42.9 - Cardiomyopathy, unspecified Category: Medical Plan x Coding Level of Care Code Procedure Only Diagnoses Normally functioning cardiac pacemaker present Z95.0 Atrial flutter, unspecified type I48.92 Atrial flutter type: unspecified Cardiomyopathy I42.9 CPT Codes Cardiac Device Check - Cardiac Device 12: [id number] Cardiac Device Interrogation, pacemaker ([id number])
== END ==
PROVIDERS: PCP Internal Medicine; Visit Provider Internal Medicine
DX: I48.92 Unspecified atrial flutter (principal); Z95.0 Presence of cardiac pacemaker; I42.9 Cardiomyopathy, unspecified
CPT/HCPCS: 93294

== ENCOUNTER 2025-06-07 14:09 | Outpatient (AMB) | payer BC, SELFPAY ==
--- NOTE | 2025-06-07 14:12 | MHC.OFFVIS ---
Vital Signs 06/07/25 14:13 Height 5 ft 9 in Weight 260 lb 2.327 oz BMI 38.4 BP 138/74 Blood Pressure Location Lt brachial Position Sitting Pulse 69 Pulse Source Pulse Oximeter Pulse Oximetry (%) 98 Oxygen Delivery Method Room Air Intake Visit Reasons: DM Intake Note: Patient present today for Type 2 Diabetes Mellitus Last Diabetic eye exam: Last exam was years ago. [facility]. Last Podiatry Visit: Last exam was 04/2025 Random Glucose: 214 mg/dl HgA1C: 6.8% 03/29/25 Lacing Presser Required: No Accompanied by: Self / Same As Patient Allergies regadenoson (From Web and Rank) Adverse Reaction (Severe, Verified 06/07/25 14:19) seizure type activity Medication List - Last Reconciled 06/07/25 by Paula Mcdonough PA-C alcohol swabs (BD Alcohol Swabs) 1 pad topical QID amlodipine 5 mg PO DAILY apixaban (Eliquis) 5 mg PO BID 90 days atorvastatin 20 mg PO BEDTIME 90 days blood sugar diagnostic (OneTouch Ultra Test strips) As directed -tests 4 X/day blood-glucose meter (OneTouch Ultra2 Meter) As directed tests 4 X/day blood-glucose sensor (FreeStyle Tish 3 Plus Sensor device) Use daily As directed to monitor glucose blood-glucose,grain receiver,cont (FreeStyle Tish 3 [place]) As directed bumetanide 2 mg PO BID 30 days carvedilol 12.5 mg PO BID cholecalciferol (vitamin D3) 50 mcg PO DAILY 90 days dulaglutide (Trulicity) 1.5 mg (0.5 mL) subcut QWEEK hydralazine 50 mg PO BID 90 days insulin glargine (Basaglar KwikPen U-100 Insulin) 10 units (0.1 mL) subcut QPM 30 days isosorbide mononitrate ER 30 mg PO DAILY lancets As directed lancets As directed-tests 4 X/day pen needle, diabetic As directed spironolactone 50 mg (2 x 25 mg) PO QAM tamsulosin 0.4 mg PO DAILY 90 days HPI HPI DM: Details: Patient is a 60yo male with DM type 2 diagnosed at age 40 years of age, who presents for continued management of diabetes. He was last seen 10/27/24 by my colleague. Current Diabetes Medications: Basaglar 10 units - he takes rarely if he has a large supper and his sugars are elevated >200. Trulicity 1.5 mg Qwkly -he states that he does not want to go up on this. He states that he feels very well-controlled at this point but has not been really checking his blood sugars as he ran out of testing supplies. He states sometimes he higher doses of Trulicity initially cause some nausea and he is supposed to be going for a change of pacemaker soon so he wants to hold off on making any adjustments. Most recent A1c was 6.8. 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 follows with cardiology Nephro: follows regularly. stable [facility] Medical History Liver mass Vitamin D deficiency Obesity (BMI 30-39.9) Pure hypercholesterolemia Benign essential hypertension Combined systolic and diastolic congestive heart failure Chronic kidney disease (CKD), stage III (moderate) Diabetic foot ulcer with osteomyelitis Complete heart block CHF (congestive heart failure) BPH (benign prostatic hyperplasia) Proteinuria Hyperlipidemia Essential hypertension Normally functioning cardiac pacemaker present Chronic right heart failure Heart block CKD (chronic kidney disease) Hypertension Type 2 diabetes mellitus Pacemaker Surgical History History of cardiac cath History of amputation of toe History of cardiac pacemaker (~04/15/20) Family History Mother CVA (cerebral vascular accident) Diabetes Social History Housing: Apartment Alcohol intake: never Patient Tobacco Use Status: Never used Tobacco Tobacco use type: Cigarette e-Cigarette/Vaping Use: Never Used Second Hand Smoke Exposure: No service: Yes Current occupational status: employed Cognitive needs: No Hearing needs: No Vision needs: No Physical Exam Vital Signs: Last Vital Signs Pulse 69 06/07/25 14:13 BP 138/74 06/07/25 14:13 Pulse Ox 98 06/07/25 14:13 Oxygen Delivery Method Room Air 06/07/25 14:13 BMI result Body Mass Index 38.4 Const Orientation/consciousness: patient oriented x3 HEENT Ears: hearing grossly normal bilaterally Neck Thyroid: Thyroid normal Lymphatic: no lymphadenopathy noted Resp Auscultation: clear to auscultation bilaterally Cardio Rate: regular rate Rhythm: regular rhythm Heart sounds: S1 normal heart sound present and S2 normal heart sound present Skin General skin exam: no rashes or lesions noted Neuro General: patient oriented x3, gait normal and no focal motor deficits Results Reviewed Results Reviewed: Laboratory Last Values Glucose (Clinic) 214 mg/dL (60-115) H 06/07/25 14:21 Laboratory Tests 02/18/25 03/29/25 15:22 15:40 Creatinine 1.94 H Estimated GFR 35 Fasting Glucose 101 H Estimat Average Glucose 148 Hgb A1c (Clinic) 7.0 H Hemoglobin A1c % 6.8 H AST 30 ALT 30 Triglycerides 63 Cholesterol 116 LDL Cholesterol, Calc 71 HDL Cholesterol 33 L Assessment & Plan Assessment & Plan (1) Type 2 diabetes mellitus with other diabetic kidney complication: Code(s): E11.29 - Type 2 diabetes mellitus with other diabetic kidney complication Category: Surgical Plan: Continue current regimen Testing supplies ordered Tish 3+ ordered as he does use insulin a couple times a week. Advised to follow up in 3 months. Sooner if needed. (2) Benign essential hypertension: Code(s): I10 - Essential (primary) hypertension Category: Medical Plan: WNL. Continue current regimen Medications: New dulaglutide (Trulicity) 1.5 mg (0.5 mL) subcut QWEEK 2 mL 4RF Paula Mcdonough PA-C blood-glucose sensor (FreeStyle Tish 3 Plus Sensor device) Use daily As directed to monitor glucose 2 ea 5RF Paula Mcdonough PA-C E08.29 - Diabetes mellitus due to underlying condition with other diabetic kidney complication, R80.9 - Proteinuria, unspecified, Z79.4 - computer terminal operator (current) use of insulin Changed From lancets (OneTouch UltraSoft Lancets) As directed-tests 4 X/day 100 ea 5RF To lancets As directed-tests 4 X/day 100 ea 5RF Paula Mcdonough PA-C Refilled blood sugar diagnostic (OneTouch Ultra Test strips) As directed -tests 4 X/day 100 ea 4RF Paula Mcdonough PA-C Discontinued blood sugar diagnostic (OneTouch Verio test strips) Discontinued Reason: Doctor's Order 1 strip miscellaneous TID 30 days 100 strips 11RF for diabetes mellitus blood-glucose sensor (FreeStyle Tish 3 Sensor device) Discontinued Reason: Doctor's Order As directed 2 ea 11RF E11.29 - Type 2 diabetes mellitus with other diabetic kidney complication Trulicity (dulaglutide) Discontinued Reason: Doctor's Order 1.5 mg (0.5 mL) subcut QWEEK 30 days 2.5 mL 11RF NS E11.29 - Type 2 diabetes mellitus with other diabetic kidney complication Resumed insulin glargine (Basaglar KwikPen U-100 Insulin) 10 units (0.1 mL) subcut QPM 30 days 3 mL 5RF Ronnell Glass MD Coding Level of Care Code Est Pt Level 4 (60363) Complex EM visit Add On G2211 Diagnoses Type 2 diabetes mellitus with other diabetic kidney complication E11.29 Benign essential hypertension I10
--- OUTSIDE RECORDS SUMMARY | 2025-06-07 14:12 | XMS_ITS | Encounter Summary ---
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 Not on file documented as of this encounter Plan of Treatment Upcoming Encounters Date Type Department Care Team (Late Contact Info) Description 04/24/2025 Procedure Pass [facility] [address] [place] [address] 06/28/2025 3:30 PM EDT Appointment Echo Lab [address] [place] [address] Juma Lombardo MD [address] [place] [address] 08/28/2025 3:00 PM EST Office Visit [facility] [address] [place] [address] [address] Floor, [address] [place] [address] Juma Lombardo MD [address] [place] [address] documented as of this encounter Visit Diagnoses Not on filedocumented in this encounter Care Teams Nursing Home Admissions Director Relationship Specialty Start Date End Date Ronnell Glass MD [address] [place] [address] [address] PCP - General Internal Medicine 10/11/19 documented as of this encounter Additional Source Comments The information contained in this document represents components of the legal health record. It is not the complete legal health record.[facility]
--- OUTSIDE RECORDS SUMMARY | 2025-06-07 14:12 | XMS_ITS | Clinical Summary ---
Author Organization [facility] Address [address] [address] Phone Care Team Providers Care Cupola Hoist Operator Name Role Phone Ronnell Glass MD Primary Care Provider [phone] Allergies No known active allergies Medications metFORMIN (GLUCOPHAGE) 1000 MG tablet Take 1,000 mg by mouth 2 (two) times a day with meals. Active tamsulosin (FLOMAX) 0.4 mg Cap Take 1 capsule (0.4 mg total) by mouth nightly at bedtime. 30 capsule 0 Active amLODIPine (NORVASC) 10 MG tablet Take 1 tablet (10 mg total) by mouth daily. 30 tablet 0 Active Additional Information Patient taking differently: 5 mgOral Daily, Reported on 04/24/2025 hydrALAZINE (APRESOLINE) 50 MG tablet Take 1 tablet (50 mg total) by mouth every 12 (twelve) hours. 60 tablet 0 Active ELIQUIS 5 mg tablet TAKE 1 TABLET BY MOUTH TWICE DAILY FOR ATRIAL FIBRILLATION Active atorvastatin (LIPITOR) 20 MG tablet Take 20 mg by mouth. 5 Active bumetanide (BUMEX) 2 MG tablet Take 2 mg by mouth 2 (two) times a day. Active carvedilol (COREG) 12.5 MG tablet TAKE 1 TABLET BY MOUTH TWICE DAILY. STOP LABETOLOL AND. START CARVEDILOL Active cholecalciferol (VITAMIN D3) 2,000 unit capsule Take 1 capsule by mouth every morning. 5 Active TRULICITY 1.5 mg/0.5 mL subcutaneous injection INJECT 1.5MG UNDER THE SKIN ONE DAY A WEEK Active isosorbide mononitrate (IMDUR) 30 MG 24 hr tablet Take 1 tablet by mouth every morning. 5 Active spironolactone (ALDACTONE) 25 MG tablet Take 25 mg by mouth. 5 Active Active Problems Problem Noted Date Diagnosed Date Acute cystitis without hematuria 10/12/2019 Assessment & Plan (10/14/2019 4:16 PM EST): With acute urinary retention likely in the [...] go home tomorrow. Benign prostatic hyperplasia with urinary retent ion 10/12/2019 Assessment & Plan (10/12/2019 11:15 AM EST): Now connected with urology with obstructing prostate. Patient likely to need TURP in the future. Discharge with catheter with follow-up in 3 to 4 weeks at the urology office. Tamsulosin initiated. Hypertensive urgency 10/11/2019 Assessment & Plan (10/14/2019 4:11 PM EST): Cardiology recommendations as follows: Continue with Hydralazine 25 every 6 hours, with plan to transition to 50 mg every 12 hours if the patient tolerates well. Increase amlodipine to 10mg daily as pressures remain elevated, monitor for improvement. Acute kidney injury 10/11/2019 Assessment & Plan (10/14/2019 4:09 PM EST): Creatinine improved further to 2.1, continue to monitor. US with no evidence for medicorenal disease. No evidence for obstruction further up system. Localized edema Assessment & Plan (10/13/2019 6:09 PM EST): -Cardiology consult appreciated. Lower extremity venous reflux study recommended, likely to be done as outpatient? -After discussion with Dr. Stone, does not believe that this is a result of heart failure, likely needs venous reflux treatment as an outpatient. We will hold off on diuresis at this time -Monitor daily weights -Low-sodium diet Hypertension Diabetes mellitus Assessment & Plan (10/13/2019 6:08 PM EST): -Will give long-acting, mealtime and sliding scale insulin. Continue with 15 units of Lantus at bedtime nightly, blood sugars overall much improved to the 100-120s range today. -Diabetic diet -Qzncu-[id number] checks with meals and at bedtime -Patient takes metformin 1000 mg twice daily which was held at admission AV block, 1st degree Assessment & Plan (10/14/2019 4:13 PM EST): EKG does show first-degree AV block with NM 310 ms. Bradycardic after clonidine. Echocardiogram was reviewed by Dr. Stone, also reviewed recent telemetry today which showed possible 2nd degree block. Patient remains asymptomatic. Plan for holter monitor on discharge. Encounters Date Type Department Care Team Description 04/30/[address] [facility] [address], [address] [place] [address] Juma Lombardo MD 04/24/2025 3:00 PM EDT Office Visit [facility] [address], [address] [place] [address] Juma Lombardo MD Cardiomyopathy, unspecified type (Primary Dx); HFrEF (heart failure with reduced ejection fraction); Dyspnea, unspecified type from Last 3 Months Family History Medical History Relation Comments No Known Problems Father Coronary artery disease Mother Stroke Mother No Known Problems Sister Relation Status Comments Father Mother Sister Social History Tobacco Use Types Packs/Day Years Used Date Smoking Tobacco: Never Smokeless Tobacco: Never Alcohol Use Standard Drinks/Week Comments Not Currently 0 (1 standard drink = 0.6 oz pur e alcohol) Education Answer Date Recorded Are you interested in more education? Not on blossom e 01/14/2023 Are you concerned about learning? Not on file 01/14/2023 No 01/14/2023 No 01/14/2023 Digital Access Answer Date Recorded No 02/14/2023 No 02/14/2023 Reliable internet access at home? Not on file 02/14/2023 Device with a working camera? 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 Not on file Last Filed Vital Signs Vital Sign Reading Time Taken Comments Blood Pressure 108/74 04/24/2025 3:29 PM EDT Pulse 69 04/24/2025 3:29 PM EDT Temperature 36.3 C (97.4 F) 10/15/2019 11:51 AM EST Respiratory Rate 16 10/15/2019 11:51 AM EST Oxygen Saturation 98% 04/24/2025 3:29 PM EDT Inhaled Oxygen Concentration - - Weight 116.1 kg (256 lb) 04/24/2025 3:29 PM EDT Height 172.7 cm (5' 7.99 ) 04/24/2025 3:29 PM ED T Body Mass Index 38.93 04/24/2025 3:29 PM EDT Plan of Treatment Upcoming Encounters Date Type Department Care Team (Late st Contact Info) Description 04/24/2025 Procedure Pass [place] [address] 06/28/2025 3:30 PM EDT Appointment [place] [address] Juma Lombardo MD [address] [place] [address] 08/28/2025 3:00 PM EST Office Visit [facility] [address], [address] [place] [address] Juma Lombardo MD [address] [place] [address] [email or web address] Health Maintenance Due Date Last Done Comments HEMOGLOBIN A1C 1965 DEPRESSION SCREENING 1977 HEPATITIS C SCREENING 1983 HIV ONE-TIME SCREENING (18-65 YEARS) 1983 PNEUMOCOCCAL VACCINES (50+ years) (1 of 2 - PCV) 01/04/1984 COLOGUARD 2010 COLONOSCOPY 2010 COLORECTAL CANCER SCREENING 2010 FIT TEST 2010 FOBT 2010 SIGMOIDOSCOPY 2010 VIRTUAL COLONOSCOPY 2010 ZOSTER VACCINES (1 of 2) 2015 DIABETIC EYE EXAM 10/11/2019 URINE MICROALBUMIN/CREATININE RATIO 10/12/2020 10/12/2019 CREATININE LEVEL 10/15/2020 10/15/2019, , 10/13/2019, Additional history exists POTASSIUM LEVEL 10/15/2020 10/15/2019, 09/20, 10/13/2019, Additional history exists Adult Td,Tdap Booster 11/06/2023 11/06/2013, 014 RSV VACCINE (1 - Risk 60-74 years 1-dose series) 2025 INFLUENZA VACCINE (#1) 2025 05/30/2019, 1996 COVID-19 VACCINE ( season) 2025 BLOOD PRESSURE 10/25/2025 04/24/2025 SMOKING STATUS SCREENING (Once After 26 Yrs) Completed 04/24/2025 HEPATITIS A VACCINES Aged Out No long er eligible based on patient's age to complete this topic HIB VACCINES Aged Out No longer eligi ble based on patient's age to complete this topic MENINGOCOCCAL VACCINES (ACWY) Aged Out No longer eligible based on patient's age to complete this topic MENINGOCOCCAL VACCINES (B) Aged Out N o longer eligible based on patient's age to complete this topic Medical Devices Not on file Procedures Procedure Name Priority Date/Time Associated Diagnosis Comments BASIC METABOLIC PANEL Routine 10/15/2019 5:34 AM EST MICROALBUMIN/CREATI NINE RATIO, RANDOM URINE Routine 10/12/2019 11:39 PM EST from Last 3 Months or Most Recently Relevant to Health Maintenance Results * (ABNORMAL) Basic metabolic panel (10/15/2019 5:34 AM EST) SODIUM 137 133 - 146 mmol/L [facility] CHLORIDE 102 96 - 108 mmol/L [facility] POTASSIUM 4.1 3.3 - 5.1 mmol/L [facility] CO2 22 21 - 35 mmol/L [facility] BUN 25(H) 6 - 19 mg/dL [facility] CREATININE 1.90(H) 0.5 - 1.5 mg/dL [facility] GLUCOSE 124(H) 70 - 99 mg/dL [facility] CALCIUM 7.9(L) 8.4 - 10.3 mg/dL [facility] EGFR 39(L) >59 mL/min/1.7 3m2 [facility] Comment:If patient is black, multiply result by 1.159. Estimated glomerular filtration rate calculated using the CKD-EPI equation. ANION GAP 17 10 - 20 mmol/L [facility] Blood 10/15/2019 5:34 AM EST 10/15/2019 6:23 AM EST us Katharine Nathan MD LAB BLOOD ORDERABLES Final R esult [address] [address] * (ABNORMAL) Microalbumin/creatinine ratio, random urine (10/12/2019 11:39 PM EST) URINE MICROALBUMIN >440.0(H) 0 - 2.3 mg/dL [facility] URINE CREATININE 301 mg/dL [facility] MICROALB/CRE RATIO NOT CALCULATED 0 - 20 mg/g Cre [facility] Comment:due to Microalbumin >440 Urine (Urine) 10/12/2019 11: 39 PM EST 10/13/2019 12:02 AM EST us Robert Elizabeth MD URINE ORDERABLES Final Result [address] [address] from Last 3 Months or Most Recently Relevant to Health Maintenance Insurance [employer] [facility] Member Subscriber Plan / Payer (Ef fective 1990-Present) Name:Quintin Chacon Relation to Subscriber:Self Name:QUINTIN CHACON Payer ID:[id number] (NAIC) Group ID:[id number] Type:PPO Address: [address] [employer] Member Subscriber Plan / Payer (Ef fective 1990-Present) Name:Quintin Chacon Relation to Subscriber:Self Name:QUINTIN CHACON Payer ID:[id number] (NAIC) Group ID:[id number] Type:PPO Address: [address] Member Subscriber Plan / Payer (Ef fective 1990-Present) Name:Quintin Chacon Relation to Subscriber:Self Name:QUINTIN CHACON Payer ID:[id number] (NAIC) Group ID:[id number] Type:PPO Address: [address] Member Subscriber Plan / Payer (Ef fective 1990-Present) Name:Quintin Chacon Relation to Subscriber:Self Name:QUINTIN CHACON Payer ID:[id number] (NAIC) Group ID:[id number] Type:PPO Address: [address] [employer] [facility] Member Subscriber Plan / Payer (Ef fective 1990-Present) Name:Quintin Chacon Relation to Subscriber:Self Name:QUINTIN CHACON Payer ID:[id number] (NAIC) Group ID:[id number] Type:PPO Address: [address] Member Subscriber Plan / Payer (Ef fective 2019-Present) Name:Quintin Chacon Relation to Subscriber:Self Name:Quintin Chacon Payer ID:[id number] (NAIC) Group ID:Not on file Type:Indemnity Address: [facility] [place] [id number] Member Subscriber Plan / Payer (Ef fective 1990-Present) Name:Quintin Chacon Relation to Subscriber:Self Name:QUINTIN CHACON Payer ID:[id number] (NAIC) Group ID:[id number] Type:PPO Address: [address] Member Subscriber Plan / Payer (Ef fective 2019-Present) Name:Quintin Chacon Relation to Subscriber:Self Name:Quintin Chacon Payer ID:[id number] (NAIC) Group ID:Not on file Type:Indemnity Address: [facility] [place] [id number] [facility] Advance Directives For more information, please contact: [phone] (9AM - 5PM Mila/[facility], Tuesday-Tuesday) * Full Code (Confirmed) (Latest Code Status on File) Date Activated Date Inactivated Comments 10/11/2019 5:52 PM 10/15/2019 7:37 PM Question Answer Comments Code Status Confirmed With: Patient Care Teams Cupola Hoist Operator Relationship Specialty Start Date End Date Ronnell Glass MD [address] [place] [address] [place] [address] PCP - General Internal Medicine 10/11/19 Additional Source Comments The information contained in this document represents components of the legal health record. It is not the complete legal health record.[facility]
[2025-06-07 14:13] VITALS: BP 138/74; PULSE 69; O2SAT 98; BMI 38.4
[2025-06-07 14:24] LABS: Glucose, Whole Blood 214 mg/dL (60-115)
== END 2025-06-07 14:42 | disposition home or self-care (01) ==
LOC: HO.ENCR 14:10
PROVIDERS: PCP Internal Medicine; Visit Provider Physician Assistant
DX: E11.29 Type 2 diabetes mellitus with other diabetic kidney complication (principal); I10 Essential (primary) hypertension

== ENCOUNTER → 2025-06-07 14:09 | Outpatient (BNVA) | payer BC, SELFPAY | PROVIDERS: PCP Internal Medicine; Visit Provider Physician Assistant | DX: E11.29 Type 2 diabetes mellitus with other diabetic kidney complication (principal); I10 Essential (primary) hypertension; R80.9 Proteinuria, unspecified; Z79.4 Long term (current) use of insulin | CPT/HCPCS: 82947 ==

== ENCOUNTER → 2025-07-09 23:59 | Outpatient (BNV) | payer BC, SELFPAY ==
--- NOTE | 2025-07-11 13:32 | MHC.OFFVIS ---
Intake Visit Reasons: Remote HF monitoring- [employer] Allergies regadenoson (From Lexiscan) Adverse Reaction (Severe, Verified 06/07/25 14:19) seizure type activity PFSH Medical History Liver mass Vitamin D deficiency Obesity (BMI 30-39.9) Pure hypercholesterolemia Benign essential hypertension Combined systolic and diastolic congestive heart failure Chronic kidney disease (CKD), stage III (moderate) Diabetic foot ulcer with osteomyelitis Complete heart block CHF (congestive heart failure) BPH (benign prostatic hyperplasia) Proteinuria Hyperlipidemia Essential hypertension Normally functioning cardiac pacemaker present Chronic right heart failure Heart block CKD (chronic kidney disease) Hypertension Type 2 diabetes mellitus Pacemaker Surgical History History of cardiac cath History of amputation of toe History of cardiac pacemaker (~04/15/20) Family History Mother CVA (cerebral vascular accident) Diabetes Social History Housing: Apartment Alcohol intake: never Patient Tobacco Use Status: Never used Tobacco Tobacco use type: Cigarette e-Cigarette/Vaping Use: Never Used Second Hand Smoke Exposure: No service: Yes Current occupational status: employed Cognitive needs: No Hearing needs: No Vision needs: No Office Procedures Cardiac Device Check Cardiac Device Check Details: Date of service- 07/09/2025; based on impedance data and physiological variables, there is no evidence of worsening congestive heart failure. [id number] Cardiac Device Interrogation, cardio physiologic monitor Procedure code (CPT) selection complete Assessment & Plan Assessment & Plan (1) Normally functioning cardiac pacemaker present: Code(s): Z95.0 - Presence of cardiac pacemaker Category: Medical (2) Chronic right heart failure: Code(s): I50.812 - Chronic right heart failure Category: Medical Plan x Coding Level of Care Code Procedure Only Diagnoses Normally functioning cardiac pacemaker present Z95.0 Chronic right heart failure I50.812 CPT Codes Cardiac Device Check - Cardiac Device 15: [id number] Cardiac Device Interrogation, cardio physiologic monitor ([id number])
== END ==
PROVIDERS: PCP Internal Medicine; Visit Provider Internal Medicine
DX: I50.812 Chronic right heart failure (principal); Z95.0 Presence of cardiac pacemaker
CPT/HCPCS: 93297

== ENCOUNTER → 2025-07-22 23:59 | Outpatient (BNV) | payer BC, SELFPAY ==
--- NOTE | 2025-07-24 16:22 | MHC.OFFVIS ---
Intake Visit Reasons: Remote device check- Biotronik Allergies regadenoson (From Lexiscan) Adverse Reaction (Severe, Verified 06/07/25 14:19) seizure type activity [facility] Medical History Liver mass Vitamin D deficiency Obesity (BMI 30-39.9) Pure hypercholesterolemia Benign essential hypertension Combined systolic and diastolic congestive heart failure Chronic kidney disease (CKD), stage III (moderate) Diabetic foot ulcer with osteomyelitis Complete heart block CHF (congestive heart failure) BPH (benign prostatic hyperplasia) Proteinuria Hyperlipidemia Essential hypertension Normally functioning cardiac pacemaker present Chronic right heart failure Heart block CKD (chronic kidney disease) Hypertension Type 2 diabetes mellitus Pacemaker Surgical History History of cardiac cath History of amputation of toe History of cardiac pacemaker (~04/15/20) Family History Mother CVA (cerebral vascular accident) Diabetes Social History Housing: Apartment Alcohol intake: never Patient Tobacco Use Status: Never used Tobacco Tobacco use type: Cigarette e-Cigarette/Vaping Use: Never Used Second Hand Smoke Exposure: No service: Yes Current occupational status: employed Cognitive needs: No Hearing needs: No Vision needs: No Office Procedures Cardiac Device Check Cardiac Device Check Details: Date of service- 07/22/2025 ; Battery life 50%; normal lead parameters; AP 1%; TESTING COORDINATOR 100%; in atrial fibrillation. Overall normal device function. [id number] Cardiac Device Interrogation, pacemaker Procedure code (CPT) selection complete Assessment & Plan Assessment & Plan (1) Normally functioning cardiac pacemaker present: Code(s): Z95.0 - Presence of cardiac pacemaker Category: Medical (2) Complete heart block: Comment: S/P pacemaker insertion on 04/15/2020 Code(s): I44.2 - Atrioventricular block, complete Category: Medical (3) Cardiomyopathy: Code(s): I42.9 - Cardiomyopathy, unspecified Category: Medical (4) Atrial fibrillation: Code(s): I48.91 - Unspecified atrial fibrillation Plan x Coding Level of Care Code Procedure Only Diagnoses Normally functioning cardiac pacemaker present Z95.0 Complete heart block I44.2 Cardiomyopathy I42.9 Atrial fibrillation I48.91 CPT Codes Cardiac Device Check - Cardiac Device 12: [id number] Cardiac Device Interrogation, pacemaker ([id number])
== END ==
PROVIDERS: PCP Internal Medicine; Visit Provider Internal Medicine
DX: I44.2 Atrioventricular block, complete (principal); Z95.0 Presence of cardiac pacemaker; I42.9 Cardiomyopathy, unspecified; I48.91 Unspecified atrial fibrillation
CPT/HCPCS: 93294

== ENCOUNTER → 2025-08-11 15:35 | Outpatient (BNV) | payer BC, SELFPAY | PROVIDERS: PCP Internal Medicine; Visit Provider Internal Medicine | DX: I48.92 Unspecified atrial flutter (principal); I44.2 Atrioventricular block, complete; I42.8 Other cardiomyopathies; Z95.0 Presence of cardiac pacemaker | CPT/HCPCS: 93294 ==

== ENCOUNTER 2025-08-14 13:32 | Outpatient (AMB) | payer BC, SELFPAY ==
[2025-08-14 13:42] VITALS: BP 138/70; PULSE 69; BMI 37.4
--- NOTE | 2025-08-14 13:42 | A.OFFVIS_ITS ---
Vital Signs 08/14/25 13:42 Height 5 ft 9 in Weight 253 lb 8.505 oz BMI 37.4 BP 138/70 Blood Pressure Location Lt brachial Position Sitting Pulse 69 Pulse Source Pulse Oximeter Intake Visit Reasons: 3M F/U 07/18 R/s Allergies regadenoson (From Lexiscan) Adverse Reaction (Severe, Verified 06/07/25 14:19) seizure type activity Medication List - Last Reconciled 08/14/25 by Ugo Quintero MD amlodipine 5 mg PO DAILY apixaban (Eliquis) 5 mg PO BID 90 days atorvastatin 20 mg PO BEDTIME 90 days blood sugar diagnostic (OneTouch Ultra Test strips) As directed -tests 4 X/day blood-glucose meter (Whistle.co.ukTouch Ultra2 Meter) As directed tests 4 X/day blood-glucose sensor (FreeStyle Tish 3 Plus Sensor device) Use daily As directed to monitor glucose blood-glucose,building architect,cont (FreeStyle Tish 3 [place]) As directed bumetanide 2 mg PO BID 30 days carvedilol 12.5 mg PO BID cholecalciferol (vitamin D3) 50 mcg PO DAILY 90 days dulaglutide (Trulicity) 1.5 mg (0.5 mL) subcut QWEEK hydralazine 50 mg PO BID 90 days insulin glargine (Basaglar KwikPen U-100 Insulin) 10 units (0.1 mL) subcut QPM 30 days isosorbide mononitrate ER 30 mg PO DAILY lancets As directed lancets As directed-tests 4 X/day pen needle, diabetic As directed spironolactone 50 mg (2 x 25 mg) PO QAM tamsulosin 0.4 mg PO DAILY 90 days HPI Comments Details: Quintin returns for follow-up of congestive heart failure. To recall, he was admitted to the hospital with congestive heart failure in 2019. Then he was put on diuretics and lost more than 75 lb. He was also found to be in 2-1 heart block. Underwent permanent pacemaker implantation. Multiple vascular risk factors including type 2 diabetes and hypertension as well as chronic kidney disease. In the recent echocardiogram, he has had diminished LVEF. He has undergone cardiac catheterization that showed normal coronary arteries. He was also refer to EP for consideration of Bi V upgrade and it seems he has seen the physician but we do not have any reports. Patient himself states he feels good. No new concerns. [facility] Medical History Liver mass Vitamin D deficiency Obesity (BMI 30-39.9) Pure hypercholesterolemia Benign essential hypertension Combined systolic and diastolic congestive heart failure Chronic kidney disease (CKD), stage III (moderate) Diabetic foot ulcer with osteomyelitis Complete heart block CHF (congestive heart failure) BPH (benign prostatic hyperplasia) Proteinuria Hyperlipidemia Essential hypertension Normally functioning cardiac pacemaker present Chronic right heart failure Heart block CKD (chronic kidney disease) Hypertension Type 2 diabetes mellitus Pacemaker Surgical History History of cardiac cath History of amputation of toe History of cardiac pacemaker (~04/15/20) Family History Mother CVA (cerebral vascular accident) Diabetes Social History Housing: Apartment Alcohol intake: never Patient Tobacco Use Status: Never used Tobacco Tobacco use type: Cigarette e-Cigarette/Vaping Use: Never Used Second Hand Smoke Exposure: No service: Yes Current occupational status: employed Cognitive needs: No Hearing needs: No Vision needs: No Review of Systems Const Denies weakness ENT Denies dizziness Card Denies chest pain, Denies chest pain with activity, Denies syncope, Denies rapid heart rate, Denies pedal edema, Denies edema, Denies leg edema, Denies lightheadedness, Denies palpitations, Denies dyspnea, Denies dyspnea on exertion and Denies orthopnea Resp Denies cough, Denies dyspnea and Denies dyspnea on exertion GI Denies hematochezia and Denies change in stool character Musc Denies abnormal gait, Denies muscle cramps, Denies muscle weakness, Denies numbness, Denies radiating pain into limb and Denies tingling Neuro Denies abnormal gait, Denies dizziness, Denies syncope, Denies numbness, Denies tingling and Denies weakness Endo Denies palpitations Physical Exam Vital Signs: Last Vital Signs Pulse 69 08/14/25 13:42 BP 138/70 08/14/25 13:42 BMI result Body Mass Index 37.4 Const General: comfortable and no acute distress Orientation/consciousness: patient oriented x3 HEENT Other: Unremarkable Head: Yes normal to inspection Neck Neck: Yes normal visual inspection Chest Chest palpation & inspection: normal inspection of the chest Resp Auscultation: clear to auscultation bilaterally Cardio Palpation: normal PMI Heart sounds: S1 normal heart sound present, S2 normal heart sound present, no gallops, no murmurs and no rubs GI Palpation (GI): Soft to palpation Back/Spine/Pelvis Other: unremarkable Skin General skin exam: no rashes or lesions noted Neuro General: patient oriented x3 Extrem General: Yes normal to inspection Psych Mental Status: mental status grossly normal Assessment & Plan Assessment & Plan (1) Cardiomyopathy: Code(s): I42.9 - Cardiomyopathy, unspecified Category: Medical Plan: In the last echocardiogram from September, LVEF is 35-40%. In the past, it was the normal range at 60-65%. Cardiac catheterization shows normal coronaries. Normal LVEDP. Could be related to RV pacing. We will get reports from EP consultation. For medications, he is on carvedilol, spironolactone, Bumex. Not on Entresto but he also has high creatinine. (2) Chronic right heart failure: Code(s): I50.812 - Chronic right heart failure Category: Medical Plan: Stable. No changes. Sleep study requested multiple times in the past but not performed. (3) Essential hypertension: Code(s): I10 - Essential (primary) hypertension Category: Medical Plan: Stable. No changes. Coding Level of Care Code Est Pt Level 4 (07172) Complex visit Add On G2211 Diagnoses Cardiomyopathy I42.9 Chronic right heart failure I50.812 Essential hypertension I10
--- OUTSIDE RECORDS SUMMARY | 2025-08-14 16:39 | XMS_ITS | Clinical Summary ---
Author Organization [facility] Address [address] [address] Phone Care Team Providers Care Hotel Yardperson Name Role Phone Ronnell Glass MD Primary Care Provider [phone] [phone] Allergies Active Allergy Reactions Criticality Noted Date Comments Gadolinium-Containing Contrast Media Hives 05/13/2025 Medications metFORMIN (GLUCOPHAGE) 1000 MG tablet Take 1,000 mg by mouth 2 (two) times a day with meals. Active tamsulosin (FLOMAX) 0.4 mg Cap Take 1 capsule (0.4 mg total) by mouth nightly at bedtime. 30 capsule 0 Active amLODIPine (NORVASC) 10 MG tablet Take 1 tablet (10 mg total) by mouth daily. 30 tablet 0 Active hydrALAZINE (APRESOLINE) 50 MG tablet Take 1 [...] Take 25 mg by mouth. 5 Active mupirocin (BACTROBAN) 2 % ointment 1 APPL EXTERNALLY DAILY TO OPEN WOUND ON FOOT/TOE 5 Active Active Problems Problem Noted Date Diagnosed Date HFrEF (heart failure with reduced ejection fract ion) 07/12/2025 Assessment & Plan (07/12/2025 1:36 PM EDT): EF 55% on recent echo. Pt is on GDMT with carvedilol, spironolactone, and bumex. Pt is tolerating medications well but notes some lightheadedness. Will continue current management. Pt had widened QRS on EKG which I suspect is related to RV pacing. There is no reduction in EF at this time. Will keep current follow-up on 08/28/[address] Lombardo. Plan: Continue carvedilol Continue spironolactone Continue bumex Follow-up on 08/28/25 Persistent atrial fibrillation 07/12/2025 Assessment & Plan (07/12/2025 1:37 PM EDT): Pt is currently on carvedilol and Eliquis for CVA prophylaxis. He denies any bleeding issues on Eliquis. Will continue current management. Plan: Continue Eliquis Mixed hyperlipidemia 07/12/2025 Assessment & Plan (07/12/2025 1:38 PM EDT): Pt is currently on atorvastatin and tolerating well. No changes in management. Plan: Continue atorvastatin Acute cystitis without hematuria 10/12/2019 Assessment & [...] time -Monitor daily weights -Low-sodium diet Hypertension Assessment & Plan (07/12/2025 1:38 PM EDT): Pt is currently on amlodipine in addition to GDMT. His BP is under good control. No changes in management. Plan: Continue amlodipine Diabetes mellitus Assessment & Plan (10/13/2019 6:08 PM EST): -Will give long-acting, mealtime and sliding scale insulin. Continue with 15 units of Lantus at bedtime nightly, blood sugars overall much improved to the 100-120s range today. -Diabetic diet -Lrrkk-qs-hghd checks with meals and at bedtime -Patient takes metformin 1000 mg twice daily which was held at admission Complete heart block Assessment & Plan (07/12/2025 1:34 PM EDT): Cardiac pacemaker in situ. Assessment & Plan (10/14/2019 4:13 PM EST): EKG does show first-degree AV block with IL 310 ms. Bradycardic after clonidine. Echocardiogram was reviewed by Dr. Stone, also reviewed recent telemetry today which showed possible 2nd degree block. Patient remains asymptomatic. Plan for holter monitor on discharge. Encounters Date Type Department Care Team Description 07/12/2025 1:30 PM EDT Office Visit [facility] [address] [place] [address] 3rd Floor, [address] [place] [address] Tia Timmons DNP Complete heart block (Primary Dx); HFrEF (heart failure with reduced ejection fraction); Persistent atrial fibrillation; Primary hypertension; Mixed hyperlipidemia 06/28/2025 2:07 PM EDT - 06/28/2025 11:59 PM EDT Hospital Encounter Echo Lab [address] [place] [address] Juma Lombardo MD Discharge Disposition: Home or Self Care 04/24/2025 Procedure Pass Echo Lab [address] [place] [address] from Last 3 Months Family History Medical [...] 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 Not on file Last Filed Vital Signs Vital Sign Reading Time Taken Comments Blood Pressure 118/78 07/12/2025 1:05 PM EDT Pulse 69 07/12/2025 1:05 PM EDT Temperature 36.3 C (97.4 F) 10/15/2019 11:51 AM EST Respiratory Rate 16 10/15/2019 11:51 AM EST Oxygen Saturation 97% 07/12/2025 1:05 PM EDT Inhaled Oxygen Concentration - - Weight 118.8 kg (262 lb) 07/12/2025 1:05 PM EDT Height 172.7 cm (5' 7.99 ) 07/12/2025 1:05 PM ED T Body Mass Index 39.85 07/12/2025 1:05 PM EDT Plan of Treatment Upcoming Encounters Date Type Department Care Team (Late st Contact Info) Description 08/28/2025 3:00 PM EST Office Visit [facility] [address] [place] [address] 3rd Floor, [address] [place] [address] Juma Lombardo MD [address] [place] [address] Health Maintenance Due Date Last Done Comments HEMOGLOBIN A1C 1965 DEPRESSION SCREENING 1977 HEPATITIS C SCREENING 1983 HIV ONE-TIME SCREENING (18-65 YEARS) 1983 PNEUMOCOCCAL VACCINES (50+ years) (1 of 2 - PCV) 01/04/1984 COLOGUARD 2010 COLONOSCOPY 2010 COLORECTAL CANCER SCREENING 2010 FIT TEST 2010 FOBT 2010 SIGMOIDOSCOPY 2010 VIRTUAL COLONOSCOPY 2010 RSV VACCINE (1 - Risk 50-74 years 1-dose series) 2015 ZOSTER VACCINES (1 of 2) 2015 DIABETIC EYE EXAM 10/11/2019 URINE MICROALBUMIN/CREATININE RATIO 10/12/2020 10/12/2019 CREATININE LEVEL 10/15/2020 10/15/2019, , 10/13/2019, Additional history exists POTASSIUM LEVEL 10/15/2020 10/15/2019, 09/20, 10/13/2019, Additional history exists INFLUENZA VACCINE (#1) 2025 , 05/30/2019, 07/24/1997 COVID-19 VACCINE ( - 2024- season) 2025 BLOOD PRESSURE 01/10/2026 07/12/2025 Adult Td,Tdap Booster 05/24/2035 05/24/2025 , 11/06/2013, 11/06/2013 SMOKING STATUS SCREENING (Once After 26 Yrs) [...] Procedure Name Priority Date/Time Associated Diagnosis Comments TTE COMPREHENSIVE Routine 06/28/2025 3:3 1 PM EDT Dyspnea, unspecified type BASIC METABOLIC PANEL (BMP) Routine 10/15/2019 5:34 AM EST MICROALBUMIN/CREATININ E RATIO, RANDOM URINE Routine 10/12/2019 11:39 PM EST from Last 3 Months or Most Recently Relevant to Health Maintenance Results * TTE COMPREHENSIVE (06/28/2025 3:31 PM EDT) Height 173 cm Weight 116 kg Systolic BP 108 mmHg Diastolic BP 74 mmHg Left Atrium Dimension Anterior-Posterior 47 15 - 40 mm Aortic Valve Mean Gradient 1 mmHg Aortic Valve Time Velocity Integral 170.0 mm Aortic Valve Peak Velocity 0.8 m/s Aortic Valve Peak Gradient 3 mmHg Aortic Sinus Diameter 36 <40 mm Ascending Aorta Diameter 34 <36 mm Interventricular Septum Thickness 18 6 - 11 mm Left Ventricle Internal Diameter End Diastole 42 42 - 58 mm Left Ventricle Internal Diameter End Systole 34 <40 mm Left Ventricular Outflow Tract Diameter 20.0 mm Left Ventricular Posterior Wall Thickness 17 6 - 11 mm Left Ventricle Ea Lateral Wave Speed 10.2 cm/s Left Ventricle Ea Septal Wave Speed 7.7 cm/s Ejection Fraction 39 50 - 75 Percent Mitral Valve Deceleration Time 151 ms Left Ventricle A Wave Speed 36.6 cm/s Left Ventricle E Wave Speed 81.5 cm/s Pulmonary Valve Peak Velocity 0.8 m/s Pulmonary Valve Peak Gradient 3 mmHg Right Ventricle Basal Diameter 34 25 - 41 mm Tricuspid Valve Peak Velocity 2.3 m/s Raw LV EF% 34 % MV E/E' Tissue Velocity Lateral 7.99 Relative Wall Thickness 0.81 0.22 - 0.42 MV E/A ratio 2.2 MV E/e' septal 10.58 Left Ventricle E/e' Average 9.3 Aortic Valve Prosthetic Peak Gradient 3 mmHg Aorta Sinus Index by Height 2.08 cm/m Aorta Sinus CSA index by Height 5.88 cm2/m Asc Aorta CSA Index by Height 5.25 cm2/m Right Ventricle to Right Atrium Pressure Gradient 21 mmHg Right Ventricle Peak Systolic Pressure (Assuming RAP 10) 31 mmHg MGB CV ECHO TV RVSP (ASSUMING RAP OF 5) 26 mmHg RVSP (Exclusive of RAP) 21 mmHg Pulmonic Valve Prosthetic Peak Gradient 3 mmHg Echo E/Ea 10.58 Body Surface Area 2.27 m2 Right Ventricle Peak Systolic Pressure 24 mmHg Left Ventricle indexed to BSA 140.4 g/m2 Right Atrium Area 11 cm2 Right Atrium Area index 5 cm2/m2 Aortic Valve Prosthetic Mean Gradient 1 mmHg Aortic Valve Sinus Index by BSA 16 mm/m2 Ascending Aorta Index 15 mm/m2 Right Atrium Pressure Estimated 3 mmHg Ascending Aorta Index 15 mm Aortic Sinus Index 16 mm Ascending Aorta Diameter 15 mm Aortic Valve Sinus Index 1 16 20 - 32 mm AO ASC DIAM BSA INDEX 14.98 Left Atrial Volume Index 13 16 - 34 mL/m2 Right Ventricle TAPSE 19 >=17 mm Right Ventricle Pulse Doppler S Wave 6.7 >=9.5 cm/s Left Atrial Volume 29 mL Left Atrial Volume Index by Height 17 mL/m Anatomical Region Laterality Modality Heart Ultrasound Narrative 06/29/2025 9:24 AM EDT Images from the original result were not included. 1. The indication for this study is dyspnea on exertion. The estimated ejection fraction by the single-plane method is low at 39% but visually it is definitely higher at around 55%. Regional wall motion was normal with the exception of an abnormal septal contraction pattern due to a wide QRS complex. There is moderate concentric LVH and diastolic function was indeterminate. 2. Normal RV size and function there is a pacing catheter evident in the right heart. 3. Trileaflet aortic valve there is no evidence of aortic stenosis, the ascending aortic root is normal size. 4. Trace mitral and trace to mild tricuspid sufficiency, the PA pressure is normal. 5. Normal pericardium and when compared to the prior echo the ejection fraction may be slightly lower on this study. Left Ventricle The left ventricle is normal in size. There is moderate concentric hypertrophy. The interventricular septal thickness is 18 mm. The LV posterior wall thickness is 17 mm. There is mildly reduced left ventricular systolic function. The LV ejection fraction is 39% (calculated via the single dimension method). There is moderate diffuse hypokinesis. LV diastolic function parameters are indeterminate in total. Right Ventricle The right ventricle is normal in size. The RV basal dimension is 34 mm. There is a lead (ICD/pacer) present in the right ventricle. There is reduced right ventricular systolic function. TAPSE is 19 mm. RV S' wave is 6.7 cm/s. Left Atrium The left atrium is normal in size. The left atrial volume is 29 mL. There are normal flow patterns in the pulmonary vein. Right Atrium The right atrium is normal in size. The right atrial area is 11 cm2. The IVC is suboptimally visualized.Hepatic veins size is unknown. Mitral Valve There is mitral valve thickening. There is no mitral stenosis. There is trace mitral regurgitation. Tricuspid Valve The tricuspid valve appears normal. There is no tricuspid stenosis. There is trace to mild tricuspid regurgitation. The RV systolic pressure was calculated at 24 mmHg (using TR peak velocity of 2.3 m/s and assuming an RA pressure of 3 mmHg). Aortic Valve The aortic valve is tricuspid. There is no aortic stenosis. The aortic valve peak velocity is 0.8 m/s. The peak and mean aortic valve gradients are 3 mmHg and 1 mmHg respectively. There is no aortic regurgitation. The visualized portions of the thoracic aorta appear normal in size. Pulmonic Valve The pulmonic valve appears normal. Pericardium There is no pericardial effusion. There are no pleural effusions. General Findings The study was technically difficult (4). Study quality explanation: body habitus. Technique(s) used in the evaluation: Color flow Doppler and Spectral Doppler. The predominant rhythm during the study was a paced rhythm. Comparison Findings Compared to prior report on 10/12/2019, IAS/IVS The interatrial septum is suboptimally visualized. The interatrial septum appears normal. There is no evidence of patent foramen ovale (PFO). The interventricular septum is suboptimally visualized. The interventricular septum appears normal. There is no evidence of a ventricular septal defect. Juma Lombardo MD CV ECHO ORDERABLES Final Resu lt * (ABNORMAL) Basic metabolic panel (10/15/2019 5:34 AM EST) SODIUM 137 133 - 146 mmol/L [facility] CHLORIDE 102 96 - 108 mmol/L [facility] POTASSIUM 4.1 3.3 - 5.1 mmol/L [facility] CO2 22 21 - 35 mmol/L [facility] BUN 25(H) 6 - 19 mg/dL [facility] CREATININE 1.90(H) 0.5 - 1.5 mg/dL [facility] GLUCOSE 124(H) 70 - 99 mg/dL [facility] CALCIUM 7.9(L) 8.4 - 10.3 mg/dL [facility] EGFR 39(L) >59 mL/min/1.7 3m2 [facility] Comment:If patient is black, multiply result by 1.159. Estimated glomerular filtration rate calculated using the CKD-EPI equation. ANION GAP 17 10 - 20 mmol/L [facility] Blood 10/15/2019 5:34 AM EST 10/15/2019 6:23 AM EST us Katharine Nathan MD LAB BLOOD BKR ORDERABLES Fin al Result [address] [address] * (ABNORMAL) Microalbumin/creatinine ratio, random urine (10/12/2019 11:39 PM EST) URINE MICROALBUMIN >440.0(H) 0 - 2.3 mg/dL [facility] URINE CREATININE 301 mg/dL HEAD OF PRECISION TARGETING [facility] MICROALB/CRE RATIO NOT CALCULATED 0 - 20 mg/g Cre [facility] Comment:due to Microalbumin >440 Urine (Urine) 10/12/2019 11: 39 PM EST 10/13/2019 12:02 AM EST us Robert Elizabeth MD LAB URINE ORDERABLES Final Re sult Performing Organization Address City/[facility]/ZIP Co de Phone Number [address] [address] from Last 3 Months or Most Recently Relevant to Health Maintenance Insurance [facility] Member Subscriber Plan / Payer (Ef fective 1990-Present) Name:Quintin Chacon Relation to Subscriber:Self Name:QUINTIN CHACON Payer ID:[id number] (NAIC) Group ID:[id number] Type:PPO Address: [address] [facility] Member Subscriber Plan / Payer (Ef fective 1990-Present) Name:Quintin Chacon Relation to Subscriber:Self Name:QUINTIN CHACON Payer ID:[id number] (NAIC) Group ID:[id number] Type:PPO Address: [address] Member Subscriber Plan / Payer (Ef fective 1990-Present) Name:Quintin Chacon Relation to Subscriber:Self Name:QUINTIN CHACON Payer ID:[id number] (NAIC) Group ID:[id number] Type:PPO Address: [address] Member Subscriber Plan / Payer (Ef fective 1990-Present) Name:Quintin Chacon Relation to Subscriber:Self Name:QUINTIN CHACON Payer ID:[id number] (NAIC) Group ID:[id number] Type:PPO Address: [address] Member Subscriber Plan / Payer (Ef fective 1990-Present) Name:Quintin Chacon Relation to Subscriber:Self Name:QUINTIN CHACON Payer ID:[id number] (NAIC) Group ID:[id number] Type:PPO Address: [address] Member Subscriber Plan / Payer (Ef fective 1990-Present) Name:Quintin Chacon Relation to Subscriber:Self Name:QUINTIN CHACON Payer ID:[id number] (NAIC) Group ID:[id number] Type:PPO Address: [address] Member Subscriber Plan / Payer (Ef fective 1990-Present) Name:Quintin Chacon Relation to Subscriber:Self Name:QUINTIN CHACON Payer ID:[id number] (NAIC) Group ID:[id number] Type:PPO Address: [address] [facility] Member Subscriber Plan / Payer (Ef fective 1990-Present) Name:Quintin Chacon Relation to Subscriber:Self Name:QUINTIN CHACON Payer ID:[id number] (NAIC) Group ID:[id number] Type:PPO Address: [address] Advance Directives For more information, please contact: [phone] (9AM - 5PM [place], Tuesday-Tuesday) * Full Code (Confirmed) (Latest Code Status on File) Date Activated Date Inactivated Comments 10/11/2019 5:52 PM 10/15/2019 7:37 PM Question Answer Comments Code Status Confirmed With: Patient Care Teams Hotel Yardperson Relationship Specialty Start Date End Date Ronnell Glass MD [address] [place] [address] [place] [address] PCP - General Internal Medicine 10/11/19 Additional Source Comments The information contained in this document represents components of the legal health record. It is not the complete legal health record.[facility]
--- OUTSIDE RECORDS SUMMARY | 2025-08-14 16:39 | XMS_ITS | Encounter Summary ---
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 encounter Plan of Treatment Upcoming Encounters Date Type Department Care Team (Late Contact Info) Description 08/28/2025 3:00 PM EST Office [facility] 3rd [facility], [address] [place] [address] Juma Lombardo MD [address] [place] [address] [email or web address] documented as of this encounter Visit Diagnoses Not on filedocumented in this encounter Care Teams Criminal Court Judge Relationship Specialty Start Date End Date Ronnell Glass MD [address] [place] [address] Dr [address] [place] [address] PCP - General Internal Medicine 10/11/19 documented as of this encounter Additional Source Comments The information contained in this document represents components of the legal health record. It is not the complete legal health record.[facility]
--- OUTSIDE RECORDS SUMMARY | 2025-08-14 16:39 | XMS_ITS | Clinical Summary ---
Author Organization [facility] Address [address] [address] Care Team Providers Care Sustainability Analyst Name Role Phone Ronnell Glass MD Primary Care Provider [phone]- [phone] Medications amLODIPine (NORVASC) 10 MG tablet Take [...] to the 100-120s range today. -Diabetic diet -Kkddk-ze-gftn checks with meals and at bedtime -Patient takes metformin 1000 mg twice daily which was held at admission First degree atrioventricular block 11/14/2020 Overview (11/14/2020): Last Assessment & Plan: EKG does show first-degree AV block with OH 310 ms. Bradycardic after clonidine. Echocardiogram was [...] % PVNMA 08/29/2020 us [id number] LICITED RESULTS Final Result PVNMA from Last 3 Months or Most Recently Relevant to Health Maintenance Insurance [address] [place] [address] Care Teams Sustainability Analyst Relationship Specialty Start Date End Date Ronnell Glass MD [address] [place], [place] [id number] PCP - General 09/29/20
--- OUTSIDE RECORDS SUMMARY | 2025-08-14 16:39 | XMS_ITS | Encounter Summary ---
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 Plan of Treatment Upcoming Encounters Date Type Department Care Team (Late Contact Info) Description 08/28/2025 3:00 PM EST Office Visit [facility] [address] [facility] 3rd Floor, [address] [place] [address] Juma Lombardo MD [address] [place] [address] documented as of this encounter Visit Diagnoses Not on filedocumented in this encounter Care Teams Gunite Nozzle Operator Relationship Specialty Start Date End Date Ronnell Glass MD [address] [place] [address] Dr [facility] [address] PCP - General Internal Medicine 10/11/19 documented as of this encounter Additional Source Comments The information contained in this document represents components of the legal health record. It is not the complete legal health record.[facility]
== END 2025-08-14 14:02 | disposition home or self-care (01) ==
LOC: HO.HCS 13:32
PROVIDERS: PCP Internal Medicine; Visit Provider Internal Medicine
DX: I42.9 Cardiomyopathy, unspecified (principal); I50.812 Chronic right heart failure; I10 Essential (primary) hypertension
CPT/HCPCS: 99214

== ENCOUNTER → 2025-08-20 09:22 | Outpatient (BNV) | payer BC, SELFPAY | PROVIDERS: PCP Internal Medicine; Visit Provider Internal Medicine | DX: I50.9 Heart failure, unspecified (principal); Z95.0 Presence of cardiac pacemaker | CPT/HCPCS: 93297 ==

== ENCOUNTER 2025-08-27 15:21 | Outpatient (AMB) | payer BC, SELFPAY ==
--- OUTSIDE RECORDS SUMMARY | 2025-02-01 08:00 | XMS_ITS ---
[facility] Address [address] [place] [address] Care Team Providers Care Blackjack Pit Boss Name Role Phone Quan RUCKER, Ronnell Primary Care Provider Unava ilable Candy Sandhu Unavailable [phone] Lemos Encounters Encounter Location Date Provider Diagnosis [facility] [address] [address] 02/01/2025 Candy Sandhu Plan Of Treatment Next Appt Details Provider Name:Candy ruiz, 11/12/2025 03:15:00 PM, [address] [place] [address], [id number], Progress Notes * FRANCESCO CelioTrinidadOB:1965 (60 yo M)Acc No.[id number]:02/01/2025 Progress Note Patient: Quintin HANNA Provider: Dev Sandhu DPM :1965 A ge:60 Y S ex:Male Date:02/01/2025 Address:[address] [place] [address] Pcp:Ronnell Glass MD Subjective: * Chief Complaints: [...] 0 02/01/2025 Generated for Carine Contreras/Kassy on: 10/28/2024 09:52 PM EST
--- OUTSIDE RECORDS SUMMARY | 2025-05-07 09:30 | XMS_ITS ---
[facility] Address [address] [place] [address] Care Team Providers Care Recruiting Assistant Name Role Phone Quan RUCKER, Ronnell Primary Care Provider Unava ilable Candy Sandhu Unavailable [phone] Lemos Encounters Encounter Location Date Provider Diagnosis [facility] [address] [address] 05/07/2025 Candy Sandhu Plan Of Treatment Next Appt Details Provider Name:Candy ruiz, 11/12/2025 03:15:00 PM, [address] [place] [address], [id number], Progress Notes * FRANCESCO CelioTrinidadOB:1965 (60 yo M)Acc No.[id number]:05/07/2025 Progress Note Patient: Quintin HANNA Provider: Dev Sandhu DPM :1965 A ge:60 Y S ex:Male Date:05/07/2025 Address:[address] [place] [address] Pcp:Ronnell Glass MD Subjective: * Chief Complaints: [...] * Provider: Dev Sandhu DPM Date: 0 05/07/2025 Generated for Carine Contreras/Kassy on: 10/28/2024 09:51 PM EST
--- NOTE | 2025-08-27 15:41 | MHC.PC.OV ---
Vital Signs 08/27/25 15:42 Height 5 ft 9 in Weight 267 lb 6 oz BMI 39.5 BP 140/80 H Blood Pressure Location Lt brachial Position Sitting Respiration 18 Pulse 71 Pulse Source Pulse Oximeter Temp Source Temporal Artery Scan Pulse Oximetry (%) 98 Oxygen Delivery Method Room Air Intake Visit Reasons: DM/HTN/CKD/HF Director Building Required: No Accompanied by: Self / Same As Patient Allergies regadenoson (From Abundance Generation) Adverse Reaction (Severe, Verified 08/27/25 16:04) seizure type activity Medication List - Last Reconciled 08/27/25 by LIN Avila amlodipine 5 mg PO DAILY apixaban (Eliquis) 5 mg PO BID 90 days atorvastatin 20 mg PO BEDTIME 90 days blood sugar diagnostic (Sweetie HighTouch Ultra Test strips) As directed -tests 4 X/day blood-glucose meter (ChromaDexuch Ultra2 Meter) As directed tests 4 X/day blood-glucose sensor (UFOstart AGStyle Tish 3 Plus Sensor device) Use daily As directed to monitor glucose blood-glucose,annealer helper,cont (FreeStyle Tish 3 [place]) As directed bumetanide 2 mg PO BID 30 days carvedilol 12.5 mg PO BID cholecalciferol (vitamin D3) 50 mcg PO DAILY 90 days dulaglutide (Trulicity) 1.5 mg (0.5 mL) subcut QWEEK hydralazine 50 mg PO BID 90 days insulin glargine (Basaglar KwikPen U-100 Insulin) 10 units (0.1 mL) subcut QPM 30 days isosorbide mononitrate ER 30 mg PO DAILY lancets As directed lancets As directed-tests 4 X/day pen needle, diabetic As directed spironolactone 50 mg (2 x 25 mg) PO QAM tamsulosin 0.4 mg PO DAILY 90 days Tobacco use date assessed: 08/27/25 Dental Screening Dental Screen Date: 08/27/25 Did you have a dental visit in the last 12 months?: No Did you have a dental problem in the last 6 months where you did not have access to dental care?: No Was dental information given to patient?: No HPI HPI Comments History of Present Illness Details History of Present Illness The patient is a 60 year old male presenting for chronic disease management. Regarding his cardiac history, the patient underwent an angioplasty in March, which revealed no blockages. There was a consideration for a new pacemaker or an AD defibrillator, but a PA later determined he was not a candidate. He is on Eliquis and reports no shortness of breath, chest pain, or palpitations. He saw his test administrator, Dr. Quintero, last week and has a follow-up appointment in September to further discuss his pacemaker status, pending a report from an EP doctor. For his type 2 diabetes, he is on Trulicity 1.5 mg. He experiences side effects of lightheadedness and nausea when starting or increasing the dose, and there was a plan to increase it to 3 mg. His last A1c was 6.8%, and the recent reading is 8.4%. He has a follow-up with his diabetes doctor on the to adjust his regimen. He acknowledges his diet contributes to high cholesterol and is practicing portion control. The patient's weight has fluctuated, previously recorded at 253 lbs, 255 lbs, and 260 lbs, with the current weight at 267 lbs, which may be influenced by wearing boots and additional layers of clothing. He admits to not watching his diet during the recent holidays. Health Maintenance - The patient is advised to reduce high-cholesterol foods and practice portion control. - He is encouraged to combine dietary changes with his Trulicity medication for better weight management results, as the weight may return if he stops the medication without lifestyle changes. - The patient is advised to monitor salt intake to help manage his blood pressure. - He is encouraged to drink plenty of fluids. Social History - Nutrition: The patient states his diet is a source of his high cholesterol and he eats takeout occasionally. - He reports not watching his diet during the holidays and ate heavily during . - Weight Management: He reports practicing portion control to manage his weight. Results - Labs: Recent HbA1c is 8.4%, which is an increase from the previous value of 6.8%. [facility] Medical History Liver mass Vitamin D deficiency Obesity (BMI 30-39.9) Pure hypercholesterolemia Benign essential hypertension Combined systolic and diastolic congestive heart failure Chronic kidney disease (CKD), stage III (moderate) Diabetic foot ulcer with osteomyelitis Complete heart block CHF (congestive heart failure) BPH (benign prostatic hyperplasia) Proteinuria Hyperlipidemia Essential hypertension Normally functioning cardiac pacemaker present Chronic right heart failure Heart block CKD (chronic kidney disease) Hypertension Type 2 diabetes mellitus Pacemaker Surgical History History of amputation of toe History of cardiac cath History of cardiac pacemaker (~04/15/20) Family History Mother CVA (cerebral vascular accident) Diabetes Social History Housing: Apartment Alcohol intake: never Patient Tobacco Use Status: Never used Tobacco Tobacco use type: Cigarette e-Cigarette/Vaping Use: Never Used Second Hand Smoke Exposure: No service: Yes Current occupational status: employed Cognitive needs: No Hearing needs: No Vision needs: No Questionnaire PHQ-9 Over the last 2 weeks, how often have you been bothered by any of the following problems? 1. Little interest or pleasure in doing things: not at all 2. Feeling down, depressed, or hopeless: not at all 3. Trouble falling or staying asleep, or sleeping too much: not at all 4. Feeling tired or having little energy: not at all 5. Poor appetite or overeating: not at all 6. Feeling bad about yourself - or that you are a failure or have let yourself or your family down: not at all 7. Trouble concentrating on things, such as reading the newspaper or watching television: not at all 8. Moving or speaking so slowly that other people could have noticed. Or the opposite - being so fidgety or restless that you have been moving around a lot more than usual: not at all 9. Thoughts that you would be better off or of hurting yourself in some way: not at all Total score: 0 Source: Developed by Drs. Guille Fam, Simran Mcginnis, Sohan Cardenas and colleagues, with an educational fausto from [employer]. Thrive Questionnaire Date Thrive assessed: 08/27/25 I am a: Patient What is your living situation today?: I have a steady place to live Within the past 12 months, did the food you bought not last and you didn't have the money to get more?: Never true Within the past 12 months, did you worry whether your food would run out before you got money to buy more?: Never true Do you have trouble paying for medicines?: No Do you have trouble getting transportation to medical appointments?: No Do you have trouble paying your heating and electricity bill?: I choose not to answer this question Do you have trouble taking care of your child, family member or friend?: I choose not to answer this question Do you have trouble with day-to-day activities such as bathing, preparing meals, shopping, managing finances, etc.?: I choose not to answer this question Are you currently unemployed and looking for a job?: No Are you interested in more education?: Yes Please select the resources that you would like help with: None Currently or been in a relationship where the following occur: No concerns reported THRIVE Score: 0 AUDIT C Alcohol Use Questionnaire (AUDIT-C) 1. How often do you have a drink containing alcohol?: Never Total Score: 0 NEETA-7 AMB Questionnaire NEETA-7 Date NEETA - 7 assessed: 08/27/25 Feeling nervous, anxious, or on edge: 0 = Not at all Not being able to stop or control worryin = Not at all Worrying too much about different things: 0 = Not at all Trouble relaxin = Not at all Being so restless that it is hard to sit still: 0 = Not at all Becoming easily annoyed or irritable: 0 = Not at all Feeling afraid as if something awful might happen: 0 = Not at all Total NEETA-7 score (0-4 normal; 5-9 mild; 10-14 moderate; 15-21 severe): 0 Source: Developed by Drs. Guille Fam, Simran Mcginnis, Sohan Cardenas and colleagues, with an educational fausto from [employer]. Review of Systems Narrative Review of Systems - Constitutional: Reports weight gain. - Cardiovascular: Denies chest pain, palpitations, or leg swelling. - Respiratory: Denies shortness of breath. - Neurological: Reports a history of lightheadedness as a side effect of Trulicity. - Gastrointestinal: Reports a history of nausea as a side effect of Trulicity. Const Denies headache(s) Eyes Denies loss of vision ENT Denies vertigo, Denies dizziness, Denies headache(s) and Denies sore throat Card Denies chest pain, Denies leg edema and Denies lightheadedness Resp Denies cough, Denies hemoptysis and Denies wheezing GI Denies abdominal pain, Denies melena, Denies constipation, Denies diarrhea and Denies vomiting Denies dysuria, Denies urinary frequency and Denies urinary urgency Musc Denies arthralgias, Denies joint swelling, Denies numbness and Denies tingling Neuro Denies Abnormal speech present, Denies behavioral changes, Denies vertigo, Denies dizziness, Denies headache(s), Denies loss of vision, Denies memory loss, Denies numbness and Denies tingling Psych Denies anxiety, Denies behavioral changes, Denies depression, Denies memory loss and Denies panic attacks Rayshawn/Lymph Denies easy bleeding and Denies easy bruising Aller/Immun Denies wheezing Physical exam (Primary Care) Vital Signs: Last Vital Signs Pulse 71 08/27/25 15:42 Resp 18 08/27/25 15:42 BP 140/80 H 08/27/25 15:42 Pulse Ox 98 08/27/25 15:42 Oxygen Delivery Method Room Air 08/27/25 15:42 BMI result Body Mass Index 39.5 Tobacco/Smoking Status: Tobacco use Status Tobacco use date assessed 08/27/25 08/27/25 15:48 Patient Tobacco Use Status Never used Tobacco 08/27/25 15:48 Tobacco use type Cigarette 08/27/25 15:48 e-Cigarette/Vaping Use Never Used 08/27/25 15:48 PHQ-9: PHQ-9 Score PHQ-9: Total score 0 08/27/25 17:16 Thrive Assessment: Date of Thrive Assessment Date Thrive assessed 08/27/25 08/27/25 15:48 Currently or been in a relationship where the following occur: No concerns reported Narrative Physical Exam - General: Appears well, no acute distress. - Vital Signs: Weight 267 lbs. Blood pressure 138/84 mmHg. - Lungs: Clear to auscultation bilaterally. Const Other: swelling noted in foot/ankle area, mild +1 pitting, no pain General: healthy appearing, no acute distress, alert and awake Nutritional Appearance: well nourished Orientation/consciousness: oriented to person, oriented to place and oriented to time HENNV Ears: TM's normal bilaterally General nose exam: Normal nasal mucous membranes and turbinates present Eyes Conjunctivae: conjunctivae normal Sclerae: sclerae normal Pupils: Equal, round and reactive pupils present Neck Neck: Yes no lymphadenopathy and Yes no JVD Thyroid: Thyroid normal Carotids: no bruits Resp Effort & Inspection: normal respiratory effort and not tachypneic Auscultation: no crackles, no rales, no rhonchi and no wheezes Cardio Rate: regular rate Rhythm: regular rhythm Heart sounds: no murmurs and normal S1 and S2 GI Palpation (GI): Soft to palpation, nontender, no hepatomegaly and no splenomegaly Auscultation: normal bowel sounds Skin General skin exam: no rashes or lesions noted and dry skin Neuro General: oriented to person, oriented to place and oriented to time Cranial nerves: Yes Equal, round and reactive pupils present Speech: No Abnormal speech present Gait exam (Neuro): Normal gait present Motor exam (neuro): no tremor noted Extrem Right upper extremity: full ROM Left upper extremity: full ROM Right lower extremity: full ROM, edema, lower leg Details: pitting edema Details: 1+ and ankle Details: edema Details: 2+ Left lower extremity: full ROM, lower leg Details: pitting edema Details: 1+ and ankle Details: pitting edema Details: 2+ Psych Mental Status: mental status grossly normal Speech and movement: Normal speech and movement present Affect: normal affect Attitude: cooperative Thought process: Normal thought process present Results AMB Hemoglobin A1c AMB Hemoglobin A1c 8.4 % Last Edit by Laine Louis MA on 08/27/25 17:17 Results Reviewed Results Reviewed: Laboratory Last Values Hgb A1c (Clinic) 8.4 % (4.0-6.0) H 08/27/25 15:47 Laboratory Tests 01/02/25 02/18/25 03/29/25 11:40 15:22 15:40 WBC 6.1 6.0 RBC 4.45 L 4.68 Hgb 11.7 L 12.3 L Hct 36.2 L 37.3 L MCV 81.3 79.7 L MCH 26.3 L 26.3 L MCHC 32.3 33.0 RDW 14.0 13.7 Plt Count 203 D 232 MPV 10.0 Immature Gran % (Auto) 0.5 H Sodium 141 139 Potassium 4.1 4.2 Chloride 109 H 103 Carbon Dioxide 29 31 H Anion Gap 7 L 9 L BUN 26 H 32 H Creatinine 1.58 H 1.94 H Estim Creat Clear Calc Not Reportable Estimated GFR 45 35 Glucose (Clinic) Random Glucose 112 Hgb A1c (Clinic) 7.0 H Calcium 9.1 9.1 Total Bilirubin 0.6 AST 30 ALT 30 Alkaline Phosphatase 63 Total Protein 7.4 Albumin 4.1 Triglycerides 63 Cholesterol 116 LDL Cholesterol, Calc 71 HDL Cholesterol 33 L 25-OH Vitamin D Total 34.6 Total T3 91 Urine Color Yellow Yellow Urine Appearance Clear Clear Urine pH 6.5 6.5 Ur Specific [place] <= 1.005 1.010 Urine Protein Negative Negative Urine Glucose (UA) Negative Negative Urine Ketones Negative Negative Urine Blood Negative Negative Urine Nitrite Negative Negative Ur Leukocyte Esterase Negative Negative Urine Creatinine 65.90 Urine Microalbumin 10.0 Microalb/Creat Ratio 15.1 06/07/25 08/27/25 14:21 15:47 WBC RBC Hgb Hct MCV MCH MCHC RDW Plt Count MPV Immature Gran % (Auto) Sodium Potassium Chloride Carbon Dioxide Anion Gap BUN Creatinine Estim Creat Clear Calc Estimated GFR Glucose (Clinic) 214 H Random Glucose Hgb A1c (Clinic) 8.4 H Calcium Total Bilirubin AST ALT Alkaline Phosphatase Total Protein Albumin Triglycerides Cholesterol LDL Cholesterol, Calc HDL Cholesterol 25-OH Vitamin D Total Total T3 Urine Color Urine Appearance Urine pH Ur Specific [place] Urine Protein Urine Glucose (UA) Urine Ketones Urine Blood Urine Nitrite Ur Leukocyte Esterase Urine Creatinine Urine Microalbumin Microalb/Creat Ratio Coding Level of Care Code Est Pt Level 4 (57124) Diagnoses Atrial flutter, unspecified type I48.92 Atrial flutter type: unspecified Stage 3b chronic kidney disease N18.32 Chronic kidney disease stage: stage 3 (moderate) Chronic kidney disease stage 3 subtype: stage 3b (GFR 30-44) Obesity (BMI 30-39.9) E66.9 Vitamin D deficiency E55.9 Pure hypercholesterolemia E78.00 Complete heart block I44.2 Type 2 diabetes mellitus with other diabetic kidney complication E11.29 Essential hypertension I10 Time Spent (min) 38 Assessment & Plan Assessment & Plan (1) Atrial flutter: Code(s): I48.92 - Unspecified atrial flutter Category: Medical Qualifiers: Atrial flutter type: unspecified Qualified Code(s): I48.92 - Unspecified atrial flutter Plan: Aflutter is fairly new for patient, was noted on 11/30/2024 and remain persistent on remote monitoring. He was started on Eliquis on 12/07/2024. Continue carvedilol 12.5 mg b.i.d. for rate control. Plans for cardioversion in the near future. This was canceled due to the patient forgetting to take his Eliquis. He is waiting for this to be rescheduled. Follow up with Cardiology as scheduled (2) CKD (chronic kidney disease): Code(s): N18.9 - Chronic kidney disease, unspecified Category: Medical Qualifiers: Chronic kidney disease stage: stage 3 (moderate) Chronic kidney disease stage 3 subtype: stage 3b (GFR 30-44) Qualified Code(s): N18.32 - Chronic kidney disease, stage 3b Plan: cr. increased fropm 1.58 to 1.94 mg/dl encouraged adequate fluid hydration avoid NSAIDs Follow up with Nephrology as scheduled (3) Obesity (BMI 30-39.9): Code(s): E66.9 - Obesity, unspecified Category: Medical Plan: Discussed lifestyle modifications including dietary changes and physical activity (4) Vitamin D deficiency: Code(s): E55.9 - Vitamin D deficiency, unspecified Category: Medical Plan: Continue cholecalciferol 50 mcg daily (5) Pure hypercholesterolemia: Code(s): E78.00 - Pure hypercholesterolemia, unspecified Category: Medical Plan: Triglycerides 63 total cholesterol 116, LDL 71, HDL 33 on March Reinforced low-cholesterol diet Continue atorvastatin 20 mg at bedtime We will check lipid panel in 3 months (6) Complete heart block: Comment: S/P pacemaker insertion on 04/15/2020 Code(s): I44.2 - Atrioventricular block, complete Category: Medical Plan: Status post pacemaker insertion on 04/15/2020, and has been doing well since The patient's cardiac status is being monitored following an angioplasty in March that showed no blockages. He is awaiting a decision regarding his pacemaker, which is pending a report from an EP doctor. He has a follow-up appointment with his test administrator in September (7) Type 2 diabetes mellitus with other diabetic kidney complication: Code(s): E11.29 - Type 2 diabetes mellitus with other diabetic kidney complication Category: Surgical Plan: The patient's A1c has increased from 6.8% to 8.4%. He is currently on Trulicity 1.5 mg and has an upcoming appointment with his store receiving specialist on the . No changes will be made to his medication at this time; management will be deferred to the specialist. He was counseled on the importance of dietary changes in conjunction with medication (8) Essential hypertension: Code(s): I10 - Essential (primary) hypertension Category: Medical Plan: Blood pressure 140/80 mm Hg-systolic goal less than 130 mm Hg Reinforced low salt diet We will not make any changes today Continue amlodipine 5 mg daily, carvedilol 12.5 mg b.i.d., hydralazine 50 mg b.i.d. and isosorbide mononitrate ER 60 mg daily, spironolactone 50 mg q.a.m. and bumetanide 2 mg b.i.d. Plan Plan Patient was informed and verbally consented to the use of an ambient scribe for clinic note documentation during this visit. 1. Type 2 Diabetes Mellitus The patient's A1c has increased from 6.8% to 8.4%. He is currently on Trulicity 1.5 mg and has an upcoming appointment with his store receiving specialist on the . No changes will be made to his medication at this time; management will be deferred to the specialist. He was counseled on the importance of dietary changes in conjunction with medication. 2. Cardiac Pacemaker Management The patient's cardiac status is being monitored following an angioplasty in March that showed no blockages. He is awaiting a decision regarding his pacemaker, which is pending a report from an EP doctor. He has a follow-up appointment with his test administrator in September. 3. Hypertension The patient's blood pressure was 140/80 mmHg during the visit. He reports taking his medication for blood pressure daily. He was advised to monitor his salt intake. 4. Overweight And Hypercholesterolemia The patient has experienced weight gain, and his current weight is 267 lbs. He was counseled on improving his diet by cutting back on high-cholesterol foods and continuing with portion control. The importance of natural weight management through diet was emphasized, especially in conjunction with his Trulicity medication. 5. Follow-Up A follow-up visit is scheduled in three months. Discussion Notes I discussed the patient's recent lab results, highlighting the significant increase in his HbA1c to 8.4% from a previous 6.8%. Given his upcoming appointment with his store receiving specialist on the , I explained that I would defer any medication changes to them to avoid conflicting treatment adjustments. We also reviewed his weight gain and blood pressure of 140/80 mmHg. I emphasized the importance of dietary modifications, including reducing high-cholesterol foods, practicing portion control, and watching salt intake, as natural ways to improve his health alongside his medications. We touched upon his cardiac status and the pending decision regarding his pacemaker, which will be addressed after the EP doctor's report is received. I recommended he schedule a follow-up appointment with Dr. Glass in three months to reassess his overall condition. Patient Instructions - Continue taking all your medications as prescribed, including Trulicity and Eliquis. - Keep your appointment with the diabetes doctor on the to discuss the increase in your A1c and adjust your treatment. - Make an effort to improve your diet by cutting back on foods high in cholesterol and salt. - Continue with portion control to help manage your weight. - Make sure to drink plenty of fluids. - Keep your follow-up cardiology appointment in September to discuss your pacemaker. - Schedule a follow-up appointment here in three months. Orders: Orders Complete Blood Count Auto Diff 3 Months D63.1 - Anemia in chronic kidney disease, E11.29 - Type 2 diabetes mellitus with other diabetic kidney complication, E55.9 - Vitamin D deficiency, unspecified, I10 - Essential (primary) hypertension, I42.9 - Cardiomyopathy, unspecified, I44.2 - Atrioventricular block, complete, I47.29 - Other ventricular tachycardia, I50.40 - Unspecified combined systolic (congestive) and diastolic (congestive) heart failure, I50.812 - Chronic right heart failure, N18.32 - Chronic kidney disease, stage 3b Vitamin D 25-OH Total 3 Months D63.1 - Anemia in chronic kidney disease, E11.29 - Type 2 diabetes mellitus with other diabetic kidney complication, E55.9 - Vitamin D deficiency, unspecified, I10 - Essential (primary) hypertension, I42.9 - Cardiomyopathy, unspecified, I44.2 - Atrioventricular block, complete, I47.29 - Other ventricular tachycardia, I50.40 - Unspecified combined systolic (congestive) and diastolic (congestive) heart failure, I50.812 - Chronic right heart failure, N18.32 - Chronic kidney disease, stage 3b Hemoglobin A1c 3 Months D63.1 - Anemia in chronic kidney disease, E11.29 - Type 2 diabetes mellitus with other diabetic kidney complication, E55.9 - Vitamin D deficiency, unspecified, I10 - Essential (primary) hypertension, I42.9 - Cardiomyopathy, unspecified, I44.2 - Atrioventricular block, complete, I47.29 - Other ventricular tachycardia, I50.40 - Unspecified combined systolic (congestive) and diastolic (congestive) heart failure, I50.812 - Chronic right heart failure, N18.32 - Chronic kidney disease, stage 3b UA CC w/rflx Micro + Cult 3 Months D63.1 - Anemia in chronic kidney disease, E11.29 - Type 2 diabetes mellitus with other diabetic kidney complication, E55.9 - Vitamin D deficiency, unspecified, I10 - Essential (primary) hypertension, I42.9 - Cardiomyopathy, unspecified, I44.2 - Atrioventricular block, complete, I47.29 - Other ventricular tachycardia, I50.40 - Unspecified combined systolic (congestive) and diastolic (congestive) heart failure, I50.812 - Chronic right heart failure, N18.32 - Chronic kidney disease, stage 3b AMB Hemoglobin A1c 08/27/25 E11.29 - Type 2 diabetes mellitus with other diabetic kidney complication Comprehensive [place]. Panel Fast 3 Months D63.1 - Anemia in chronic kidney disease, E11.29 - Type 2 diabetes mellitus with other diabetic kidney complication, E55.9 - Vitamin D deficiency, unspecified, I10 - Essential (primary) hypertension, I42.9 - Cardiomyopathy, unspecified, I44.2 - Atrioventricular block, complete, I47.29 - Other ventricular tachycardia, I50.40 - Unspecified combined systolic (congestive) and diastolic (congestive) heart failure, I50.812 - Chronic right heart failure, N18.32 - Chronic kidney disease, stage 3b Lipid Panel 3 Months D63.1 - Anemia in chronic kidney disease, E11.29 - Type 2 diabetes mellitus with other diabetic kidney complication, E55.9 - Vitamin D deficiency, unspecified, I10 - Essential (primary) hypertension, I42.9 - Cardiomyopathy, unspecified, I44.2 - Atrioventricular block, complete, I47.29 - Other ventricular tachycardia, I50.40 - Unspecified combined systolic (congestive) and diastolic (congestive) heart failure, I50.812 - Chronic right heart failure, N18.32 - Chronic kidney disease, stage 3b Vitamin B12 and Folate 3 Months D63.1 - Anemia in chronic kidney disease, E11.29 - Type 2 diabetes mellitus with other diabetic kidney complication, E55.9 - Vitamin D deficiency, unspecified, I10 - Essential (primary) hypertension, I42.9 - Cardiomyopathy, unspecified, I44.2 - Atrioventricular block, complete, I47.29 - Other ventricular tachycardia, I50.40 - Unspecified combined systolic (congestive) and diastolic (congestive) heart failure, I50.812 - Chronic right heart failure, N18.32 - Chronic kidney disease, stage 3b TSH reflex Free T4 3 Months D63.1 - Anemia in chronic kidney disease, E11.29 - Type 2 diabetes mellitus with other diabetic kidney complication, E55.9 - Vitamin D deficiency, unspecified, I10 - Essential (primary) hypertension, I42.9 - Cardiomyopathy, unspecified, I44.2 - Atrioventricular block, complete, I47.29 - Other ventricular tachycardia, I50.40 - Unspecified combined systolic (congestive) and diastolic (congestive) heart failure, I50.812 - Chronic right heart failure, N18.32 - Chronic kidney disease, stage 3b
[2025-08-27 15:42] VITALS: BP 140/80; PULSE 71; RESP 18; O2SAT 98; BMI 39.5
--- OUTSIDE RECORDS SUMMARY | 2025-08-27 21:51 | XMS_ITS | Encounter Summary ---
Author Organization 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 Not on file Not on file documented as of this encounter Plan of Treatment Upcoming Encounters Date Type Department Care Team (Late Contact Info) Description 10/04/2025 11:20 AM EST Office Visit [facility] 3rd Floor, [address] [place] [address] Juma Lombardo MD [address] [place] [address] [email or web address] documented as of this encounter Visit Diagnoses Not on filedocumented in this encounter Care Teams Percussion Tuner Relationship Specialty Start Date End Date Ronnell Glass MD [address] [place] [address] [address] PCP - General Internal Medicine 10/11/19 documented as of this encounter Additional Source Comments The information contained in this document represents components of the legal health record. It is not the complete legal health record.[facility]
--- OUTSIDE RECORDS SUMMARY | 2025-08-27 21:51 | XMS_ITS | Clinical Summary ---
Author Organization [facility] Address [address] [address] Phone Care Team Providers Care Cementer Name Role Phone Ronnell Glass MD Primary Care Provider [phone] [phone] Allergies Active Allergy Reactions Criticality Noted Date [...] to the 100-120s range today. -Diabetic diet -Dkizd-ts-rspk checks with meals and at bedtime -Patient takes metformin 1000 mg twice daily which was held at admission Complete heart block Assessment & Plan (07/12/2025 1:34 PM EDT): Cardiac pacemaker in situ. Assessment & Plan (10/14/2019 4:13 PM EST): EKG does show first-degree AV block with ND 310 ms. Bradycardic after clonidine. Echocardiogram was reviewed by Dr. Stone, also reviewed recent telemetry today which showed possible 2nd degree block. Patient remains asymptomatic. Plan for holter monitor on discharge. Encounters Date Type Department Care Team Description 07/12/2025 1:30 PM EDT Office Visit [facility] [address] [place] [address] 3rd Floor, [address] [place] [address] Tia Timmons DNP Complete heart block (Primary Dx); HFrEF (heart failure with reduced ejection fraction); Persistent atrial fibrillation; Primary hypertension; Mixed hyperlipidemia 06/28/2025 2:07 PM EDT - 06/28/2025 11:59 PM EDT Hospital Encounter Echo Lab [address] [place] [address] Juma Lombardo MD Discharge Disposition: Home or Self Care 04/24/2025 Procedure Pass Echo Lab [address] [place] [address] from Last 3 Months Family History Medical [...] Care Team (Late st Contact Info) Description 10/04/2025 11:20 AM EST Office Visit [facility] [address] [place] [address] 3rd Floor, [address] [place] [address] Juma Lombardo MD [address] [place] [address] Health Maintenance Due Date Last Done Comments [...] EST) SODIUM 137 133 - 146 mmol/L [facility] CHLORIDE 102 96 - 108 mmol/L [facility] POTASSIUM 4.1 3.3 - 5.1 mmol/L [facility] CO2 22 21 - 35 mmol/L [facility] BUN 25(H) 6 - 19 mg/dL [facility] CREATININE 1.90(H) 0.5 - 1.5 mg/dL [facility] GLUCOSE 124(H) 70 - 99 mg/dL [facility] CALCIUM 7.9(L) 8.4 - 10.3 mg/dL [facility] EGFR 39(L) >59 mL/min/1.7 3m2 [facility] Comment:If patient is black, multiply result by 1.159. Estimated glomerular filtration rate calculated using the CKD-EPI equation. ANION GAP 17 10 - 20 mmol/L [facility] Blood 10/15/2019 5:34 AM EST 10/15/2019 6:23 AM EST us Katharine Nathan MD LAB BLOOD BKR ORDERABLES Fin al Result [address] [address] * (ABNORMAL) Microalbumin/creatinine ratio, random urine (10/12/2019 11:39 PM EST) URINE MICROALBUMIN >440.0(H) 0 - 2.3 mg/dL [facility] URINE CREATININE 301 mg/dL OPHTHALMIC LENS INSPECTOR [facility] MICROALB/CRE RATIO NOT CALCULATED 0 - 20 mg/g Cre [facility] Comment:due to Microalbumin >440 Urine (Urine) 10/12/2019 11: 39 PM EST 10/13/2019 12:02 AM EST us Robert Elizabeth MD LAB URINE ORDERABLES Final Re sult Performing Organization Address City/[facility]/ZIP Co de Phone Number [address] [address] from Last 3 Months or Most Recently Relevant to Health Maintenance Insurance [facility] Member Subscriber Plan / Payer (Ef fective 1990-Present) Name:Quintin Chacon Relation to Subscriber:Self Name:QUINTIN CHACON Payer ID:[id number] (NAIC) Group ID:[id number] Type:PPO Address: [address] [facility] Member Subscriber Plan / Payer (Ef fective 1990-Present) Name:Quintin Chacon Relation to Subscriber:Self Name:QUINTIN CHACON Payer ID:[id number] (NAIC) Group ID:[id number] Type:PPO Address: [address] Member Subscriber Plan / Payer (Ef fective 1990-Present) Name:Quintin Chacon Relation to Subscriber:Self Name:QUINTIN CHACON Payer ID:[id number] (NAIC) Group ID:[id number] Type:PPO Address: [address] Member Subscriber Plan / Payer (Ef fective 1990-Present) Name:Quintin Chacon Relation to Subscriber:Self Name:QUINTIN CHACON Payer ID:[id number] (NAIC) Group ID:[id number] Type:PPO Address: [address] Member Subscriber Plan / Payer (Ef fective 1990-Present) Name:Quintin Chacon Relation to Subscriber:Self Name:QUINTIN CHACON Payer ID:[id number] (NAIC) Group ID:[id number] Type:PPO Address: [address] Member Subscriber Plan / Payer (Ef fective 1990-Present) Name:Quintin Chaocn Relation to Subscriber:Self Name:QUINTIN CHACON Payer ID:[id number] (NAIC) Group ID:[id number] Type:PPO Address: [address] Member Subscriber Plan / Payer (Ef fective 1990-Present) Name:Quintin Chacon Relation to Subscriber:Self Name:QUINTIN CHACON Payer ID:[id number] (NAIC) Group ID:[id number] Type:PPO Address: [address] [facility] Member Subscriber Plan / Payer (Ef fective 1990-Present) Name:Quintin Chacon Relation to Subscriber:Self Name:QUINTIN CHACON Payer ID:[id number] (NAIC) Group ID:[id number] Type:PPO Address: [address] Advance Directives For more information, please contact: [phone] (9AM - 5PM [place], Tuesday-Tuesday) * Full Code (Confirmed) (Latest Code Status on File) Date Activated Date Inactivated Comments 10/11/2019 5:52 PM 10/15/2019 7:37 PM Question Answer Comments Code Status Confirmed With: Patient Care Teams Cementer Relationship Specialty Start Date End Date Ronnell Glass MD [address] [place] [address] [place] [address] PCP - General Internal Medicine 10/11/19 Additional Source Comments The information contained in this document represents components of the legal health record. It is not the complete legal health record.[facility]
--- OUTSIDE RECORDS SUMMARY | 2025-08-27 21:51 | XMS_ITS | Encounter Summary ---
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 3rd Floor, [address] [place] [address] Juma Lombardo MD [address] [place] [address] documented as of this encounter Visit Diagnoses Not on filedocumented in this encounter Care Teams Motor Coach Supervisor Relationship Specialty Start Date End Date Ronnell Glass MD [address] [place] [address] [facility] [address] PCP - General Internal Medicine 10/11/19 documented as of this encounter Additional Source Comments The information contained in this document represents components of the legal health record. It is not the complete legal health record.[facility]
--- OUTSIDE RECORDS SUMMARY | 2025-08-27 21:52 | XMS_ITS | Clinical Summary ---
Author Organization [facility] Address [address] [address] Care Team Providers Care Freight Weigher Name Role Phone Ronnell Glass MD Primary Care Provider [phone] Medications amLODIPine (NORVASC) 10 MG tablet Take [...] to the 100-120s range today. -Diabetic diet -Tzehm-va-wlrt checks with meals and at bedtime -Patient takes metformin 1000 mg twice daily which was held at admission First degree atrioventricular block 11/14/2020 Overview (11/14/2020): Last Assessment & Plan: EKG does show first-degree AV block with SC 310 ms. Bradycardic after clonidine. Echocardiogram was [...] % PVNMA 08/29/2020 us [facility] Conversion LAB [id number] LICITED RESULTS Final Result PVNMA from Last 3 Months or Most Recently Relevant to Health Maintenance [place] [address] [place] [address] Care Teams Freight Weigher Relationship Specialty Start Date End Date Ronnell Glass MD [address] [place], [place] [id number] PCP - General 09/29/20
--- OUTSIDE RECORDS SUMMARY | 2025-08-27 21:53 | XMS_ITS | Patient Health Record ---
[facility] Address [address] [place] [address] Care Team Providers Care Skein Yarn Dyer Helper Name Role Phone Quan RUCKER, Powell Primary Care Provider Unava Candy Wells Unavailable [phone] Allergies No Known Allergies Results Component Value Reference Range Notes HEMOGLOBIN A1C (GLYCOHEMOGLO BIN) Reviewed date:10/30/2024 03:56:27 PM Interpretation: Performing Lab: Notes/Report: HEMOGLOBIN A1C % (HH) 6.2 HEMOGLOBIN A1C (GLYCOHEMOGLO BIN) Reviewed date:05/14/2025 03:21:07 PM Interpretation: Performing Lab: Notes/Report: HEMOGLOBIN A1C % (HH) 6.8 HEMOGLOBIN A1C (GLYCOHEMOGLO BIN) Reviewed date:05/24/2025 11:57:46 AM Interpretation: Performing Lab: Notes/Report: HEMOGLOBIN A1C % (HH) 6.8 Reason For Referral No Information Medications Medication SIG (Take, Route, Frequency, Duration) Notes Start Date End Date Status Isosorbide Mononitrate ER 60 MG Oral; Duration: 90 Active Labetalol HCl 100 MG Oral; Duration: 90 Not-Taking Bumetanide 2 MG TAKE 1 TABLET BY MOUTH TWICE DAILY Oral; Duration: 90 Active Cephalexin 500 MG 1 capsule Orally Three times a day; Duration: 10 days Not-Taking Atorvastatin Calcium 20 MG TAKE 1 TABLET BY MOUTH AT BEDTIME Oral; Duration: 90 Active amLODIPine Besylate 10 MG TAKE 1 TABLET BY MOUTH DAILY Oral; Duration: 90 Active Mupirocin 2 % 1 application Externally daily to open wound on foot/toe; Duration: 30 days 05/14/2025 Active Spironolactone 25 MG TAKE 2 TABLETS BY MOUTH EVERY MORNING Oral; Duration: 90 Active Extra Depth Orthopedic Shoes (1 Pair) with Customized Heat Molded Multidensity Innersoles (3 Pair) as directed Dx: NIDDM/Polyneuropathy (E11.42), Hammertoe Foot Deformity (M20.41,M20.42), Preulcerative Skin Lesion(s) (L85.1 08/07/2024 Not-Taking hydrALAZINE HCl 100 MG TAKE 1 TABLET BY MOUTH THREE TIMES DAILY Oral; Duration: 90 Active Walking Boot/Pneumatic As directed Wear Daily; Duration: Until further notice 01/17/2024 Not-Taking OneTouch Ultra 2 w/Device USE DIRECTED TO TEST FOUR TIMES DAILY; Duration: 30 Active Carvedilol 12.5 MG TAKE 1 TABLET BY MOUTH TWICE DAILY. STOP LABETOLOL AND. START CARVEDILOL Oral; Duration: 30 Days Active Tamsulosin HCl 0.4 MG Oral; Duration: 90 Active Vitamin D3 50 MCG (2000 UT) TAKE 1 CAPSULE BY MOUTH DAILY Oral; Duration: 90 E559,Unavail able Active Doxycycline Monohydrate 100 MG 1 capsule Orally Twice a day; Duration: 7 days 05/14/2025 Active Trulicity 0.75 MG/0.5ML Subcutaneous; Duration: 28 Active Eliquis 5 MG TAKE 1 TABLET BY MOUTH TWICE DAILY FOR ATRIAL FIBRILLATION Oral; Duration: 30 Days Active Immunizations Vaccine Route Administration Date Status Comme nts Influenza Unknown 06/20/2023 Administered Influenza Unknown 08/20/2024 Administered Influenza Unknown 06/25/2025 Administered Social History Tobacco Use: Social History Observation Description Date Details (start date - stop date) Never Smoker NA - NA Tobacco use other than smoking: Question Answer Notes Are you an other tobacco user? No Tobacco Control (Standard) Question Answer Notes Tobacco use: Nonsmoker Additional Findings: Tobacco non-user Current no nsmoker AUDIT-C (Standard) Question Answer Notes Did you have a drink containing alcohol in the p ast year? No Points 0 Interpretation Negative Problems Problem Type SNOMED Code ICD Code Onset Dates Problem Status W/U Status Risk Notes Problem Polyneuropathy due to type 2 diabetes mellitus (484162911) Type 2 diabetes mellitus with diabetic polyneuropathy (E11.42) Active confirmed Problem Acquired hammer toe of left foot (3517242375895971 ) Hammertoe of left foot (M20.42) Active confirmed Problem Acquired hammer toe of right foot (0451901064304339 ) Hammertoe of right foot (M20.41) Active confirmed Problem Diabetic neuropathic arthropathy (455384650) 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) Active confirmed Problem Arthropathy associated with a neurological disorder (17353325) Charcot's joint of foot, right (M14.671) Active confirmed Vital Signs Blood pressure diastolic 78 mm Hg 08/13/2025 Height 5ft9in in 08/13/2025 Blood pressure systolic 120 mm Hg 08/13/2025 Weight 262 lbs 08/13/2025 BMI 38.69 kg/m2 08/13/2025 Encounters Encounter Location Date Provider Diagnosis [address] [address] 10/30/2024 Candy Sandhu Charcot's joint of foot, [...] exposed L97.522 and Toe osteomyelitis, left M86.[address] [address] 11/06/2024 Candy Sandhu Charcot's joint of foot, right M14.671 ; Cellulitis of foot, left L03.116 ; Type 2 diabetes mellitus with diabetic polyneuropathy E11.42 ; Type 2 diabetes mellitus with Charcot's joint of right foot E11.610 ; Other hammer toe(s) (acquired), left foot M20.42 and Neuropathic ulcer 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 L97.[address] [address] 11/13/2024 Candy Sandhu Charcot's joint of foot, right M14.671 ; Cellulitis of foot, left L03.116 ; Type 2 diabetes mellitus with diabetic polyneuropathy E11.42 ; Type 2 diabetes mellitus with Charcot's joint of right foot E11.610 ; Other hammer toe(s) (acquired), left foot M20.42 and Neuropathic ulcer 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 L97.[address] [address] 02/12/2025 Candy Perica Type 2 diabetes mellitus with diabetic polyneuropathy E11.42 and Tinea unguium B35.[address] [address] 05/14/2025 Candy Perica Type 2 diabetes mellitus with diabetic polyneuropathy E11.42 ; Abscess of toe, right L02.611 ; Tinea unguium B35.1 ; Charcot's joint of foot, right M14.671 and Type 2 diabetes mellitus with Charcot's joint of right foot E11.[address] [address] 05/24/2025 Candy Mckaya Type 2 diabetes mellitus with diabetic polyneuropathy E11.42 and Abscess of toe, right L02.[address] [address] 08/13/2025 Candy Perica Type 2 diabetes mellitus with diabetic polyneuropathy E11.42 ; Other hammer toe(s) (acquired), left foot M20.42 and Tinea unguium B35.[address] [address] 10/22/[address]aya [address] [address] 10/30/2024 Candy Perica [address] [address] 10/30/2024 Candy Perica [address] [address] 10/30/2024 Candy Perica [address] [address] 10/30/2024 Candy Sandhu [facility] [address] [address] 10/30/2024 Candy Sandhu [facility] [address] [address] 10/31/2024 Candy Sandhu [facility] [address] [address] 01/30/2025 Candy Sandhu [facility] Encounter Date Diagnosis (ICD Code) Assessment Notes Treatment Notes Treatment Clinical Notes Section Notes 10/30/2024 Cellulitis of foot, left (ICD-10 - L03.116) 10/30/2024 Charcot's joint of foot, right (ICD-10 - M14.671) 11/06/2024 Cellulitis of foot, left (ICD-10 - L03.116) 11/06/2024 Charcot's joint of foot, right (ICD-10 - M14.671) 11/13/2024 Charcot's joint of foot, right (ICD-10 - M14.671) 02/12/2025 Type 2 diabetes mellitus with diabetic polyneuropathy (ICD-10 - E11.42) 02/12/2025 Tinea unguium (ICD-10 - B35.1) 05/14/2025 Type 2 diabetes mellitus with diabetic polyneuropathy (ICD-10 - E11.42) 05/24/2025 Type 2 diabetes mellitus with diabetic polyneuropathy (ICD-10 - E11.42) 05/24/2025 Abscess of toe, right (ICD-10 - L02.611) 08/13/2025 Other hammer toe(s) (acquired), left foot (ICD-10 - M20.42) 08/13/2025 Type 2 diabetes mellitus with diabetic polyneuropathy (ICD-10 - E11.42) 05/14/2025 Abscess of toe, right (ICD-10 - L02.611) Patient Educated with: WOUND CARE INSTRUCTIONS. pdf (WOUND CARE INSTRUCTIONS. pdf) 08/13/2025 Tinea unguium (ICD-10 - B35.1) 05/14/2025 Tinea unguium (ICD-10 - B35.1) 11/06/2024 Type 2 diabetes mellitus with diabetic polyneuropathy (ICD-10 - E11.42) 11/13/2024 Cellulitis of foot, left (ICD-10 - L03.116) 10/30/2024 Type 2 diabetes mellitus with diabetic polyneuropathy (ICD-10 - E11.42) 10/30/2024 Tinea unguium (ICD-10 - B35.1) 11/13/2024 Type 2 diabetes mellitus with diabetic polyneuropathy (ICD-10 - E11.42) 11/06/2024 Type 2 diabetes mellitus with Charcot's joint of right foot (ICD-10 - E11.610) 05/14/2025 Charcot's joint of foot, right (ICD-10 - M14.671) 05/14/2025 Type 2 diabetes mellitus with Charcot's joint of right foot (ICD-10 - E11.610) 11/13/2024 Type 2 diabetes mellitus with Charcot's joint of right foot (ICD-10 - E11.610) 11/06/2024 Other hammer toe(s) (acquired), left foot (ICD-10 - M20.42) 10/30/2024 Type 2 diabetes mellitus with Charcot's joint of right foot (ICD-10 - E11.610) 10/30/2024 Other hammer toe(s) (acquired), left foot [...] 01/17/2024 Next Appt Details Provider Name:Candy ruiz, 11/12/2025 03:15:00 PM, [address] [place], [address], Insurance Providers Payer Name Payer Address Payer Phone Subscriber Number Group Number Insured Name Patient Relationship to Insured Coverage Start Date Coverage End Date [facility] [address] [place] [address] [id number] Quintin Chacon Self - patient is the insured Medical (General) History Medical History History ICD Code type II diabetes Heart disease Chicken pox Pacemaker Surgical History Surgery Date(Month/Year) cardiac pacemeker 04/15/2020 amputation, right toe 12/23/2020 angioplasty 04/12
== END 2025-08-27 16:27 | disposition home or self-care (01) ==
LOC: HO.HMCH 15:23
PROVIDERS: PCP Internal Medicine
DX: E11.29 Type 2 diabetes mellitus with other diabetic kidney complication (principal)

== ENCOUNTER → 2025-08-27 15:21 | Outpatient (BNVA) | payer BC, SELFPAY | PROVIDERS: PCP Internal Medicine | DX: E11.22 Type 2 diabetes mellitus with diabetic chronic kidney disease (principal); I12.9 Hypertensive chronic kidney disease with stage 1 through stage 4 chronic kidney disease, or unspecified chronic kidney disease; N18.32 Chronic kidney disease, stage 3b; E11.29 Type 2 diabetes mellitus with other diabetic kidney complication; I48.92 Unspecified atrial flutter; I44.2 Atrioventricular block, complete; E66.9 Obesity, unspecified; E55.9 Vitamin D deficiency, unspecified; E78.00 Pure hypercholesterolemia, unspecified; Z68.39 Body mass index [BMI] 39.0-39.9, adult | CPT/HCPCS: 83036; 96127 ==

== ENCOUNTER 2025-09-06 15:09 | Outpatient (AMB) | payer BC, SELFPAY ==
--- OUTSIDE RECORDS SUMMARY | 2021-03-09 19:00 | XMS_ITS | Continuity of Care Document ---
Author Organization [facility] Address [address] [place] [address] Phone Care Team Providers Care Director Of Flight Operations Name Role Phone [facility] Unavailable Unavailable Allergies, Adverse Reactions, Alerts Substance Reaction Status Criticality No Known Allergies Active No Inform ation Medications Medication Instructions Dosage Effective Dates (start - stop) Status Comments testosterone (bulk) powder - Active lisinopril 10 mg tablet take 1 tablet by oral route every day 10 MG - Active Prilosec 10 mg oral suspension,delayed release take 4 packet by oral route every day mixed with 30 ml water, let sit 2-3 minutes, stir and drink within 30minutes 40 MG - Active Procedures Procedure Date CONTACT LENS FITTING [facility] Tech 0 EYE EXAM & TREATMENT REFRACTION EYE EXAM & TREATMENT REFRACTION [facility] Tech CONTACT LENS FITTING [facility] Tech 9 OFFICE/OUTPATIENT VISIT, EST OFFICE/OUTPATIENT VISIT, EST [facility] Tech CONTACT LENS FITTING [facility] Tech 8 EYE EXAM & TREATMENT EYE EXAM & TREATMENT CONTACT LENS FITTING [facility] Tech 7 REFRACTION [facility] Tech EYE EXAM & TREATMENT CONTACT LENS FITTING [facility] Tech 6 REFRACTION [facility] Tech EYE EXAM ESTABLISHED [facility] OFFICE/OUTPATIENT VISIT, NEW Advance Directives Directive Yes / No Effective Date File Name No Information Encounters Encounter Description Practice Location Reason(s) For Visit Diagnoses Date Provider Providers Copied on Encounter [facility] [place], [place], [id number], tel:[phone] [facility] No Information [facility] . [address] [place] [address], [id number]. tel:[phone] Referring Provider: Radha Stewart [facility] [address], [place], [address]. tel:[phone] [facility] [address] [place] [address], [id number], [place] tel:[phone] [facility] Contact lens evaluation (chief complaint) No Information 0 Mariel Garcia [facility] [address], [place], [address], [place]. tel:[phone] Referring Provider: Radha Stewart [address], [place], [address]. tel:[phone] [facility] [place], [place], [id number], [place] tel:[phone] [facility] routine exam (chief complaint) PresbyopiaNu clear Sclerosis OUCentral corneal ulcer, right eye 0 Mariel tabares [address] [facility] [address], [place], [address], [place]. tel:[phone] Referring Provider: Radha Stewart [address], [place], [address]. tel:[phone] [facility] [place], [place], [id number], [place] tel:[phone] [facility] comprehensiv e exam (chief complaint) PresbyopiaNu clear Sclerosis OUCentral corneal ulcer, right eye [address] tab[address] [place] [address] , [place], [address], [place]. tel:[phone] Referring Provider: Pranay Floyd [facility] , [place], [address]. tel:[phone] OFFICE/OUTPA TIENT VISIT, EST [facility] [address] [place] [address], [id number], [place] tel:[phone] [place] 3 day recheck Corneal Ulcer (chief complaint) Central corneal ulcer, right eye 8 Faustino Del Angel. [address] [place] [address], [id number], [place]. tel:[phone] Referring Provider: Pranay Floyd [facility] , [place], [address]. tel:[phone] OFFICE/OUTPA TIENT VISIT, EST [facility] [address] [place] [address], [id number], [place] tel:[phone] [facility] FBS (chief complaint) Central corneal ulcer, right eye 8 Faustino Del Angel. [address] [place] [address], [id number], [place]. tel:[phone] Referring Provider: Pranay Floyd [facility] , [place], [address]. tel:[phone] [facility] [address] [place] [address], [id number], [place] tel:[phone] [facility] No Information 8 Mariel tabares [facility] , [place], [address], [place]. tel:[phone] Referring Provider: Radha Stewart [facility] [address], [place], [address]. tel:[phone] [facility] [address] [place] [address], [id number], [place] tel:[phone] [facility] comprehensiv e exam (chief complaint) Nuclear Sclerosis OUPresbyopia 8 Mariel tabares [facility] [address], [place], [address], [place]. tel:[phone] Referring Provider: Radha Stewart [address], [place], [address]. tel:[phone] [facility] [address] [place] [address], [id number], [place] tel:[phone] [facility] comprehensiv e exam (chief complaint) Age-related nuclear cataract, bilateralPre sbyopia 7 Mariel tabares [facility] [address], [place], [address], [place]. tel:[phone] Referring Provider: Radha Stewart [address], [place], [address]. tel:[phone] [facility] [address] [place] [address], [id number], [place] tel:[phone] [facility] comprehensiv e exam (chief complaint) Age-related nuclear cataract, bilateralPre sbyopia 0 6 Mariel Garcia [facility] [address], [place], [address], [place]. tel:[phone] Referring Provider: Radha Stewart [address], [place], [address]. tel:[phone] [facility] [address] [place] [address], [id number], tel:[phone] [facility] metal FB (chief complaint) Foreign body in post wall of eye 5 Bubba Vela. [address] [facility] , [place], [place], [id number], . tel:[phone] Referring Provider: Pranay Floyd [address] [place] [address] , [place], [address]. tel:[phone] OFFICE/OUTPA TIENT VISIT, [facility] [address] [facility], [place], [place], [id number], tel:[phone] [facility] metal in eye (chief complaint) Foreign body in post wall of eye 5 Mar[address] tab[address] [place] [address] , [place], [address], [place]. tel:[phone] Referring Provider: Pranay Floyd [address] [place] [address] , [place], [address]. tel:[phone] Family History Family Member Type Diagnosis Age At Onset Mother Problem (finding) Heart disease Payers Payer name Insurance type Covered green party ID Authortanga reji(s) [facility] [id number] Social History Type Description Quantity Date Captured Comments Sex Male Smoking Status No Information Chief Complaint And Reason For Visit No Information Reason For Referral Reason For Referral No Information Plan Of Treatment Date Type Action Status Goal Tobacco cessation counseling completed Goal Tobacco cessation counseling completed Goal Tobacco cessation counseling completed History Of Present Illness Encounter Date Complaint History Of Prese nt Illness Contact lens evaluation routine exam The 55 year old male presents for ROUTINE exam in the right eye and left eye (pt has CEC). Hx of k-ulcer OD. Denies eye pain, irritation, VA changes, and new flashes/floaters. Wears DVO specs that he removes for reading. Doesn't use ATs.Wears CTLs - no CTL fittings are being performed at this time, due to COVID-19. comprehensive exam The 54 year o ld male presents for evaluation of comprehensive exam in the right eye and left eye. PT wears Acuvue Oasys OU 5-6 days a week, 12-14 hours a day, denies sleeping in the lenses and disposes of the lenses every 2-3 weeks. Pt states that his corneal ulcer from 08/06 has healed and he is pain and symptom free. Pt states that the lenses are comfortable and has no issues. DVA is good, NVA is blurry, but he is aware that there is limitations to contacts. Pt denies flashes, floaters, redness, irritation. 3 day recheck Corneal Ulcer The 53 year old male presents for evaluation of 3 day recheck Corneal Ulcer in the right eye. Pt. notes improvement. Has been using Vigamox as directed. Vision has been stable. Pt. has been wearing glasses only, would like to know when he wear his contacts again. Pt. reports sometimes discharge Tuesday morning, has progressively lessened, with none this morning. Patient denies eye pain, flashes, floaters and headaches. FBS The 53 year old male presents for evaluation of FBS in the right eye. Pt states he feels as though he has a piece of a CL stuck in eye. Redness and pain noted. Pt was removing CLs yesterday and is unsure if he may have scratched eye. Pt looked at lens and appeared to be intact. Pt denies light sensitivity but OD does feel scratchy. Pt has been applying AT to help with relief this morning. comprehensive exam Patient sees well with current contacts and glasses at distance but near is a little worse with CTL. No pain, discomfort or headaches. comprehensive exam Patient sees well with current contacts at distance but near is a little worse. Glasses are OK for use, patient rarely wears them. No pain or discomfort OU. No flashes, floaters or headaches. comprehensive exam Patient isn't happy with comfort or vision with current CTL. Wants to be refit with the Oasys lenses today. No vision complaints with glasses at disatnce, vision is stable with those, takes off to read. No pain,discomfort, flashes or floaters. metal FB The 50 year old male presents for evaluation of metal FB in the left eye. It affects both near and far vision. Patient denies flashes. 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 Found piece of metal OS. Pt is not sure when the piece of metal entered OS. Pt states he has not had a change of VA and denies pain. metal in eye The 50 year old male presents for evaluation for metal in eye in the left eye. Pt went in for an MRI on his leg and was told there was a piece of metal in his OS. He says he was wearing his CTLS at the time. He says he has no discomfort, pain, or seen a rust ring. PT says he does not know how long it could have been there, or if it is at all. He says he thinks it could have been from his CTLs. PT brought disc from MRI to view. Functional Status Date Functional Assessmen t No Information Instructions Date Instruction Additional Infor mitch Impression/Plan Related to Presb yopia Impression/Plan Related to Nucle ar Sclerosis OU Impression/Plan Related to Centr al corneal ulcer, right eye Impression/Plan Related to Presb yopia Impression/Plan Related to Centr al corneal ulcer, right eye Impression/Plan Related to Nucle ar Sclerosis OU As scheduled in 02/17 [address] full eval with Dr. Floyd Related to Central corneal ulcer, right eye Impression/Plan Related to Centr al corneal ulcer, right eye Return in [address] Harmon for corneal ulcer recheck. Related to Central corneal ulcer, right eye Impression/Plan Related to Centr al corneal ulcer, right eye 1 year full CTL exam w/ CC. Rela david to Nuclear Sclerosis OU Impression/Plan - No n-surgical at this time. Natural progression of cataracts discussed with patient. Patient indicates understanding that new specs may not improve VA as cataracts mature. Will continue to monitor. Related to Nuclear Sclerosis OU Follow up - 1 year f ull CTL exam w/ CC. Related to Nuclear Sclerosis OU Impression/Plan - Ne w glasses rx given to patient today to help with blurred DVA and trouble reading. Call if VA changes.CTL Rx issued today - pt to f/u w/ Lesley PRN. Related to Presbyopia RTC 1yr DFE/ CTL wero l w. CC and Lesley Related to Presbyopia Impression/Plan - Ne w glasses and CTL rx given to patient today to help with blurred DVA and trouble reading. Call if VA changes. Related to Presbyopia Follow up - RTC 1yr DFE/ CTL eval w. CC and Lesley Related to Presbyopia Impression/Plan - No n-surgical at this time. Natural progression of cataracts discussed with patient. Patient indicates understanding that new specs may not improve VA as cataracts mature. Will continue to monitor. Related to Age-related nuclear cataract, bilateral RTC 1yr for COLEMAN mendes/ Dr. Floyd Related to Presbyopia RTC 1yr for [facility] w/ Dr. Floyd Related to Age-related nuclear cataract, bilateral Impression/Plan - Ne w glasses rx given to patient today to help with blurred DVA and trouble reading. Call if VA changes. Related to Presbyopia Follow up - RTC 1yr for COLEMAN mendes/ Dr. Floyd Related to Presbyopia Impression/Plan - No n-surgical at this time. Natural progression of cataracts discussed with patient. Patient indicates understanding that new specs may not improve VA as cataracts mature. Will continue to monitor. Related to Age-related nuclear cataract, bilateral Follow up - RTC 1yr for [facility]LEMAN mendes/ Dr. Floyd Related to Age-related nuclear cataract, bilateral PRN, bring images Related to For eign body in post wall of eye Impression/Plan - DW P the desire to see the images, as the pt forgot the cd today. Asked pt to bring the cd back so Dr. Mac can see how accessable the fb is. If easily retrieved, may recommend excision. Pt may need a CT scan to better identify location of the fb. Related to Foreign body in post wall of eye Follow up - PRN, bring images Re lated to Foreign body in post wall of eye Ref. to AO for OS Orbtial FB Rel ated to Foreign body in post wall of eye Impression/Plan - Di scussed dx in detail with patient. Metallic FB seen on orbital xray. Recommend patient see oculoplastic specialist for treatment options. Will schedule consult with Dr. Mac. Related to Foreign body in post wall of eye Follow up - Ref. to AO for OS Orbtial FB Related to Foreign body in post wall of eye Assessments Type Assessment Date No Information Patient Care Teams Name Effective Dates (start - stop) Status Members No Information
--- OUTSIDE RECORDS SUMMARY | 2023-01-05 14:01 | XMS_ITS | Continuity of Care Document ---
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 Name Role Phone Jazzy Diaz MD Unavailable Unavailable Allergies, Adverse Reactions, Alerts Substance Reaction Status Criticality No Known Allergies Active No Inform ation Medications Medication Instructions Dosage Dose Quantity Effective Dates (start - stop) Status Indication Fill Status Comments Stiolto Respimat 2.5 mcg-2.5 mcg/actuatio n solution for inhalation inhale 2 puff by inhalation route every day at the same time each day 10 MG 1 tablet 1 - Active ATORVASTATIN 80 MG TABLET TAKE ONE TABLET BY MOUTH EVERY NIGHT AT BEDTIME 80 MG 1 tablet 1 - Active omeprazole 40 mg capsule,guevara yed release TAKE 1 CAPSULE BY MOUTH EVERY DAY BEFORE A MEAL 40 MG 1 capsule 1 - Active Lyrica 50 mg capsule take 1 capsule by oral route 3 times every day 10 MG 1 tablet 0 - Active dexamethason e 4 mg tablet take 1 tablet by oral route 3 times every day as needed 4 MG 1 tablet 0 - Active prochlorpera zine maleate 10 mg tablet take 1 tablet by oral route 3 times every day 10 MG 1 tablet 0 - Active Ventolin HFA 90 mcg/actuatio n aerosol inhaler inhale 2 puff by inhalation route every 4 - 6 hours as needed 10 MG 1 tablet 0 - Active oxycodone 10 mg tablet take 1 tablet by oral route every 4 - 6 hours as needed for pain 10 MG 1 tablet 0 - Active lisinopril 20 mg-hydrochlo rothiazide 12.5 mg tablet TAKE 1 TABLET BY ORAL ROUTE EVERY DAY 10 MG 1 tablet 0 - Active Problems Condition Type Effective Dates (start - stop) Diagnosed Date Clinical Status Comments Gastroesophageal reflux disease Problem (finding) Active (qualifier value) Advance Directives Directive Yes / No Effective Date File Name No Information Encounters Encounter Description Practice Location Reason(s) For Visit Diagnoses Date Provider Encounter Disposition [address] [place], [id number], tel:[phone] No Information 3 Joe Purcell. [address] [facility] [place] [address], [place]. tel:[phone] [place], [address], [place] tel:[phone] Pulmonary Lung cancer (chief complaint)Sh ortness of breath (chief complaint) Non-small cell cancer of left lungShortnes s of breathTobacc o abuseBody mass index (BMI) 29.0-29.9, adult 1 Juanjose Medina [address] [place] [address], [address], [place]. tel:[phone] , [place], [place], [address], [place] tel:[phone] Family Medicine At [facility] [place] No Information 1 Seth Kaiser. [address] [facility] [place], [address], [place]. tel:[phone] [place], [address], [place] tel:[phone] Pulmonary HFU (chief complaint)[place] PD (follow up) (chief complaint)Veronica ng Cancer (chief complaint) Non-small cell cancer of left lungAbnormal findings on diagnostic imaging of lungTobacco abuseBody mass index (BMI) 28.0-28.9, adult 1 Juanjose Medina [address] [place] [address], [address], [place]. tel:[phone] , [place], [place], [address], [place] tel: [phone] CT Scan At [facility] No Information 1 Juanjose Jara. [address] [place] [address], [address], [place]. tel:[phone] , [place], [place], [address], [place] tel: [phone] Internal Medicine At [place] No Information 1 Maddy Tee. [address] [place] [address] , [place], [place], [address], [place]. tel:[phone] , [place], [address], [place] tel: [phone] Pulmonary Shortness of breath 1 Juanjose Jara. [address] [place] [address], [address], [place]. tel:[phone] , [place], [place], [address], [place] tel: [phone] [facility] IP No Information 0 Jeff Dennison. [address] [place], [address], [place]. tel:[phone] , [place], [place], [address], [place] tel: [phone] [facility] IP No Information 0 Jori Bond. [address], [address], [place]. tel:[phone] , [place], [address], [place] tel:[phone] [facility] IP No Information 0 Antonio Mota. [address] [place] [address], [address], [place]. tel:[phone] , [place], [place], [address], [place] tel: [phone] [facility] IP No Information 0 Jeff Juma. [address] [place], [address], [place]. tel:[phone] , [place], [address], [place] tel: [phone] [facility] IP No Information 0 Valarie Garrison. [address] [place] [address], [address], [place]. tel:[phone] , [place], [place], [address], [place] tel: [phone] [facility] IP No Information 0 Antonio Mota. [address] [place] [address], [address], [place]. tel:[phone] , [place], [place], [address], [place] tel:[phone] Cardiology At [facility] Coronary artery disease (chief complaint)hy pertension (chief complaint)hy perlipidemia (chief complaint)to bacco use (chief complaint) Mixed hyperlipidem iaEssential (primary) hypertension Atherosclero tic heart disease of northway coronary artery without angina pectorisToba senior account manager abuseBody mass index (BMI) 28.0-28.9, adult Dec-0 4-202 0 Misbah Jordan. [address] [place] [address] [place], [address], [place]. tel:[phone] , [place], [place], [address], [place] tel:[phone] Pulmonary lung cancer (chief complaint) Non-small cell cancer of left lungShortnes s of breathBody mass index (BMI) 28.0-28.9, adult Dec-0 3-202 0 Juanjose Jara. [facility] [place], [address], [place]. tel:[phone] [place], [address], [place] tel: [phone] MRI At 1202 Non-small cell cancer of left lung 0 Juanjose Jara. [address] [place] [address], [address], [place]. tel:[phone] , [place], [place], [address], [place] tel: [phone] X Ray At 1202 No Information 0 Juanjose Jara. [address] [place] [address], [address], [place]. tel:[phone] , [place], [place], [address], [place] tel: [phone] Pulmonary No Information 0 Juanjose Jara. [address] [place] [address], [address], [place]. tel:[phone] , [place], [place], [address], [place] tel: [phone] [facility] fu after pet (chief complaint) Non-small cell cancer of left lungBody mass index (BMI) 28.0-28.9, adult 0 Juanjose Jara. [address] [place] [address], [address], [place]. tel:[phone] , [place], [place], [address], [place] tel: [phone] [facility] OP No Information 0 Elieser Villegas. [address] [place] [address] , [place], [place], [address], [place]. tel:[phone] [place], [address], [place] tel: [phone] Pulmonary Hilar mass 0 Juanjose Jara. [address] [place] [address], [address], [place]. tel:[phone] [place], [place], [address], [place] tel:[phone] Pulmonary hilar mass (chief complaint)Vo heidi Cord dysfunction (chief complaint) Hilar massSolitary pulmonary noduleParaly sis of vocal cords and larynx, unilateralBo dy mass index (BMI) 30.0-30.9, adult 0 [facility] [address], [address], [place]. tel:[phone] , [place], [place], [address], [place] tel:[phone] Pulmonary Hilar mass 0 [facility] [address], [address], [place]. tel:[phone] , [place], [address], [place] tel:[phone] Family Medicine At [facility] Follow Up of Hyperlipidem ia (chief complaint)Fo llow Up of Hypertension (chief complaint)Hy pogonadism (chief complaint)Vyas nd arthritis (chief complaint) Mixed hyperlipidem iaHilar massEssentia l (primary) hypertension Hypogonadism in maleLong term use of drugBody mass index (BMI) 29.0-29.9, adult 0 Seth Kaiser. [address] [place], [address], [place]. tel:[phone] [place], [place], [address], [place] tel:[phone] Internal Medicine At [place] No Information 0 Seth Kaiser. [address] [facility] [address], [place], [place], [address], [place]. tel:[phone] [place], [place], [address], [place] tel:[phone] [facility] [place] Testicular hypofunction Other group home (current) drug therapyMixed hyperlipidem ia 0 Seth Kaiser. [address], [place], [place], [address], [place]. tel:[phone] [place], [address], [place] tel:[phone] Family Medicine At [facility] 0 Seth Kaiser. [address], [place], [place], [address], [place]. tel:[phone] [place], [address], [place] tel: [phone] Family Medicine At [facility] 0 Seth Kaiser. [address], [place], [place], [address], [place]. tel:[phone] [place], [address], [place] tel:[phone] CT Scan At [facility] Essential (primary) hypertension 0 [place] Blanco. [address] [place] [address], [address], [place]. tel:[phone] [place], [address], [place] tel:[phone] ENT At [place] [address] hoarseness (chief complaint) DysphoniaPar alysis of vocal cords and larynx, unilateralBo dy mass index (BMI) 30.0-30.9, adult 0 [place] Blanco. [address] [place] [address], [address], [place]. tel:[phone] [place], [address], [place] tel:[phone] Family Medicine At [facility] Change in voice 0 Seth Kaiser. [address], [place], [place], [address], [place]. tel:[phone], [place], [place], [address], [place] tel:[phone] Clinic Virtual voice loss (chief complaint) Laryngitis 0 Jalyn Paz. [address] [place], [address], [place]. tel:[phone] [place], [address], [place] tel: [phone] Special Testing At 1202 No Information 0 Misbah Jordan. [address] [place] [address] [place], [address], [place]. tel:[phone] [place], [address], [place] tel: [phone] X Ray At [facility] No Information 0 Misbah Jordan. [address] [place] [address] [place], [address], [place]. tel:[phone] [place], [address], [place] tel: [phone] Cardiology At 1202 Coronary artery disease (chief complaint)hy pertension (chief complaint)hy perlipidemia (chief complaint)to bacco use (chief complaint) Mixed hyperlipidem iaEssential (primary) hypertension Atherosclero tic heart disease of north[place] coronary artery without angina pectorisToba senior account manager abuseCoughBo dy mass index (BMI) 31.0-31.9, adult 0 Misbah Jordan. [address] [place] [address] [place], [address], [place]. tel:[phone] [place], [address], [place] tel:[phone] Lab At [facility] Mixed hyperlipidem ia 0 Seth Kaiser. 1300 2 [facility], [place], [place], [address], [place]. tel:[phone] [place], [address], [place] tel:[phone] Family Medicine At [facility] Discuss Heart Score (chief complaint)hy perlipidemia (chief complaint) Elevated coronary artery calcium scoreMixed hyperlipidem iaBody mass index (BMI) 31.0-31.9, adult 0 Seth Kaiser. [address] [place], [place], [address], [place]. tel:[phone] [place], [address], [place] tel: [phone] [facility] CT At [place] No Information 0 Ry Tee. [address] [place] [address], [place], [address], [place]. tel:[phone] , [place], [address], [place] tel: [phone] Family Medicine At [facility] Preventive exam (chief complaint) Body mass index (BMI) 32.0-32.9, adultEssenti al (primary) hypertension Tobacco abuseMixed hyperlipidem iaBarrett's esophagus without dysplasiaHyp ogonadism in maleLong term use of drug 0 Seth Kaiser. [address] [place], [place], [address], [place]. tel:[phone] , [place], [address], [place] tel: [phone] Lab At [facility] Mixed hyperlipidem iaTesticular hypofunction Encounter for screening for malignant neoplasm of prostate 0 Seth Kaiser. [address] [place], [place], [address], [place]. tel:[phone] [place], [address], [place] tel: [phone] Orthopedics At [facility] Knee Pain (chief complaint) Osteoarthrit is of right knee, unspecified osteoarthrit is typeBody mass index (BMI) 32.0-32.9, adult 9 Antonio tabares [address] [place] [address] [place], [address], [place]. tel:[phone] [place], [address], [place] tel:[phone] Family Medicine At [facility] Follow Up of Hyperlipidem ia (chief complaint)Fo llow Up of Hypertension (chief complaint)GE RD (chief complaint) Hypogonadism in maleLong term use of drugEssentia l (primary) hypertension Mixed hyperlipidem iaBarrett's esophagus without dysplasiaTob acco abuseBody mass index (BMI) 32.0-32.9, adultAshley Regional Medical Centerount er for screening for malignant neoplasm of prostate 9 Seth Kaiser. [address], [place], [place], [address], [place]. tel:[phone] [place], [address], [place] tel:[phone] Lab At [facility] Testicular hypofunction Essential (primary) hypertension 9 Seth Kaiser. [address] , [place], [place], [address], [place]. tel:[phone] [place], [address], [place] tel: [phone] [facility] At [facility] Essential (primary) hypertension Hypogonadism in maleMixed hyperlipidem ia 9 Timmy Madison. [address]4 [facility], [facility], [place], [place], [address], [place]. tel:[phone] [place], [address], [place] tel:[phone] Orthopedics At [place] 8114 Knee Pain (chief complaint) Osteoarthrit is of right knee, unspecified osteoarthrit is typeBody mass index (BMI) 31.0-31.9, adult Apr-0 9-201 9 Antonio tabares [address] [place] [address] [place], [address], [place]. tel:[phone] [place], [address], [place] tel: [phone] Orthopedics At [facility] Knee Pain (chief complaint) Body mass index (BMI) 31.0-31.9, adultOsteoar thritis of right knee, unspecified osteoarthrit is typePain in right knee 9 Antoniojeanna tabares [address] [place] [address] [place], [address], [place]. tel:[phone] [place], [address], [place] tel: [phone] X Ray At [facility] No Information 9 Antoniorodríguez tabares [address] [place] [address] [place], [address], [place]. tel:[phone] [place], [address], [place] tel: [phone] Family Medicine At [facility] Pain in right kneeOsteoart hritis of right knee, unspecified osteoarthrit is type 0 9 Timmy aMdison. [facility]4 [facility] [place] [address], [place], [place], [address], [place]. tel:[phone] [place], [address], [place] tel: [phone] Family Medicine At [facility] Joint pain (chief complaint) Body mass index (BMI) 31.0-31.9, adultChronic pain of right kneeOther chronic painOsteoart hritis of right knee, unspecified osteoarthrit is type 9 Timmy Madison. [facility] Alexia, [facility], [place], [place], [address], [place]. tel:[phone] [place], [address], [place] tel: [phone] Gastroenter ology At [facility] 10-14 day follow up after procedure (chief complaint) Body mass index (BMI) 31.0-31.9, adultBarrett 's esophagus without dysplasia 9 Maddy Tee. [address] [place] [address] [place], [address], [place]. tel:[phone] [place], [address], [place] tel: [phone] Gastroenter ology At [facility]2 No Information 8 Maddy Tee. [address] [place] [address] [place], [address], [place]. tel:[phone] [place], [address], [place] tel: [phone] Gastroenter ology At [facility]2 Dysphagia (chief complaint) Body mass index (BMI) 30.0-30.9, adultHeartbu rnDysphagia, unspecified 8 Maddy Tee. [address] [place] [address] [place], [address], [place]. tel:[phone] [place], [address], [place] tel: [phone] Family Medicine At [facility] Preventive exam (chief complaint) Encntr for general adult medical exam w/o abnormal findingsEsse ntial (primary) hypertension Hypogonadism in malePersonal history of nicotine dependenceGa stroesophage al reflux disease without esophagitisB dalton mass index (BMI) 31.0-31.9, adultMixed hyperlipidem iaRefused diphtheria-t etanus vaccinePhary ngoesophagea l dysphagia 8 Timmy Madison. [address], [place] [address], [place], [place], [address], [place]. tel:[phone] [place], [address], [place] tel:[phone] Lab At [facility] Essential (primary) hypertension Testicular hypofunction 8 Timmy Madison. 1124 [facility] [place], [address], [place], [place], [address], [place]. tel:[phone] [place], [place], [address], [place] tel:[phone] [facility] Chronic conditions (chief complaint) Essential (primary) hypertension Hypogonadism in malePersonal history of nicotine dependenceGa stroesophage al reflux disease without esophagitis 8 Timmy Madison. 1124 [facility] [place], [address], [place], [place], [address], [place]. tel:[phone] [place], [address], [place] tel:[phone] Family Medicine [facility] Testicular hypofunction Essential (primary) hypertension [facility]. [address] [place], [address], [place]. tel:[phone] [place], [address], [place] tel:[phone] [facility] Preventive exam (chief complaint) Encntr for general adult medical exam w/o abnormal findingsEsse ntial (primary) hypertension Testicular hypofunction Gastroesopha geal reflux disease without esophagitisP ersonal history of nicotine dependenceBo dy mass index (BMI) 31.0-31.9, adult Jul- 7 [facility]. [address] [place], [address], [place]. tel:[phone] [place], [address], [place] tel:[phone] [facility] Testicular hypofunction Essential (primary) hypertension 7 [facility]. [address] [place], [place], [address], [place]. tel:[phone] [place], [address], [place] tel:[phone] Surgery At 1202 post OP (chief complaint) Postoperativ e visit 7 Anamaria Peterson. [address] [place] [address], [address], [place]. tel: [phone] [address] [place], [place], [address], [place] tel: [phone] Surgery At 1202 post OP (chief complaint) Body mass index (BMI) 30.0-30.9, adultPostope rative visit 7 Anamaria Peterson. [address] [place] [address], [address], [place]. tel:[phone] [place], [address], [place] tel: [phone] Surgery At 1202 Sebaceous cyst (chief complaint) Epidermoid cyst Anamaria Peterson. [address] [place] [address], [address], [place]. tel:[phone] [place], [address], [place] tel: [phone] Family Medicine At [facility] hypertension (chief complaint)hy perlipidemia (chief complaint)Hy pogonadism (chief complaint)GE RD (chief complaint)sm oking (chief complaint) Essential (primary) hypertension Hypogonadism in maleGastroes ophageal reflux disease without esophagitisS moking Joe Purcell. [address], [place], [place], [address], [place]. tel:[phone] [place], [address], [place] tel: [phone] Family Medicine At [facility] Encntr for general adult medical exam w/o abnormal findings Joe Purcell. [address] [place], [address], [place]. tel:[phone], [place], [place], [address], [place] tel:[phone] Family Medicine At [facility] Encntr for general adult medical exam w/o abnormal findings 7 [facility]. [address], [place], [place], [address], [place]. tel:[phone] [place], [address], [place] tel:[phone] Family Medicine At [facility] Skin lesion (chief complaint) Epidermoid cyst 7 [facility]. [address], [place], [place], [address], [place]. tel:[phone] [place], [address], [place] tel:[phone] Family Medicine At [facility] Skin lesion (chief complaint) Abscess [facility]. [address], [place], [place], [address], [place]. tel:[phone] , [place], [address], [place] tel:[phone] Family Medicine At [facility] Sinus symptoms (acute) (FP) (chief complaint) Acute non-recurren t maxillary sinusitis 6 Joe Jazzy. [address], [place], [place], [address], [place]. tel:[phone] [place], [address], [place] tel:[phone] Family Medicine At [facility] Encntr for general adult medical exam w/o abnormal findings 6 [facility]. [address], [place], [place], [address], [place]. tel:[phone] [place], [address], [place] tel:[phone] X Ray At [facility] No Information 6 Armando Aguilar. [address] [place] [address], [place], [address], [place]. tel:[phone] [place], [address], [place] tel:[phone] Orthopedics At [facility] Knee Pain (chief complaint) Primary osteoarthrit is of right knee 6 Armando Aguilar. [address] [place] [address], [address], [place]. tel:[phone] [place], [address], [place] tel:[phone] Family Medicine At [facility] Preventive exam (chief complaint) Encntr for general adult medical exam w/o abnormal findingsEsse ntial (primary) hypertension Body mass index (BMI) 29.0-29.9, adultSmoking Pain in right kneeOther chronic painHypogona dism in male 6 Joe Purcell. [address] [facility] [address], [place], [place], [address], [place]. tel:[phone] [place], [address], [place] tel:[phone] Family Medicine At [facility] Testicular hypofunction 6 Joe Jazzy. [address], [place], [place], [address], [place]. tel:[phone] [place], [address], [place] tel:[phone] Family Medicine At [facility] hypertension (chief complaint)hy perlipidemia (chief complaint)Hy pogonadism (chief complaint) Essential (primary) hypertension Hypogonadism in male 6 Joe Jazzy. [address], [place], [place], [address], [place]. tel:[phone] [place], [address], [place] tel:[phone] Family Medicine At [facility] Testicular hypofunction Encntr for general adult medical exam w/o abnormal findings 6 [facility]. [address] [place], [place], [address], [place]. tel:[phone] [place], [address], [place] tel:[phone] [id number] [facility] external right ear cyst (chief complaint) Cyst on ear Aug-0 5 Barrett Blanco. [address] [employer] [facility], [place], [place], [id number], [place]. tel:[phone] [place], [id number], [place] tel:[phone] Gastroenter ology At [facility] [place] Follow Up of procedure (chief complaint) Benign neoplasm of ascending colon 5 Maddy Tee. [address] [place] [address] Tr[place], [id number], [place]. [phone] [place], [place], [id number], [place] tel:[phone] Family Medicine At [facility] Ear discomfort (chief complaint) Swelling of right earBilateral impacted cerumen 5 Joe Virgenher. [address] [place], [place], [id number], [place]. tel:[phone] [place], [id number], [place] tel:[phone] Family Medicine At [facility] Preventive exam (chief complaint) No Information 5 Joe Jazzy. [address] [place], [place], [id number], [place]. tel:[phone] [place], [id number], [place] tel:[phone] Family Medicine At [facility] Preventive exam (IM) (chief complaint)Hy pogonadism (chief complaint) No Information [address] [facility], [place], [address], [place]. Family History Family Member Type Diagnosis Age At Onset Mother Problem (finding) malignant neop lasm of lung (Cause Of ) Father Problem (finding) Problem (finding) No family history of Ca ncer, colon Mother Problem (finding) malignant neop lasm of breast in first degree relative Immunizations Vaccine Date Status Comments Fluarix 6m+/Flulaval 6m+/Fluzone 6m+/Afluria 6m+ administered Source: Othe r Provider Fluarix 6m+/Flulaval 6m+/Fluzone 6m+/Afluria 6m+ administered Source: Publ ic Agency Flulaval 6m+/Fluzone 3y+/Afluria administered Note: [facility] ; So urce: Public Agency Pneumococcal polysaccharide PPV23 administered Source: New Immuniza tion Record Flulaval 6m+/Fluzone 3y+ administered Denice rce: New Immunization Record Influenza, injectable, quadrivalent, preservative free, split virus 3 years or older, Fluarix Quad refused Source: Ne w Immunization Record Influenza, injectable, quadrivalent, preservative free, 3 yrs or older administered Source: Other [employer] try Payers Payer name Insurance type Identifiers Authorization(s) [facility] riber ID: [id number] Name: Coverage Status Eligibility Check on: [id number] ship to Subscriber: selfPayer Address: [address], [id number], [facility] Phone: [phone] [facility] Member ID:Subscriber ID:Group Name: Coverage Status Eligibility Check on: [id number] ship to Subscriber: selfPayer Address: [address], [id number] Phone: [phone] Social History Type Description Quantity Date Captured Comments Sex Male Smoking Status No Information Current Gender Male (finding) Chief Complaint And Reason For Visit No Information Plan Of Treatment Date Type Action Status Goal Tdap. Due on due Goal CMP. Due on due Goal Physical Exam. Due on due Goal Lipid panel. Due on due Goal Diabetes screeni ng. Due on due Goal Td vaccine. Due on due Goal Cologuard (OUTSI DE ORDER). Due on due Goal Zoster vaccine ( ). Due on due Goal Colonoscopy. Due on due Goal Rubeola Antibody Titer (igG). Due on due Goal Depression scree edgard. Due on due Goal Depression scree edgard. Due on due Goal Cologuard (OUTSI DE ORDER). Due on due Goal Td vaccine. Due on due Goal CMP. Due on due Goal Lipid panel. Due on due Goal Physical Exam. Due on due Goal Diabetes screeni ng. Due on due Goal Rubeola Antibody Titer (igG). Due on due Goal Zoster vaccine ( 1st). Due on due Goal Tdap. Due on due Goal Colonoscopy. Due on due Goal Lipid panel. Due on due Goal Colonoscopy. Due on due Goal Zoster vaccine ( 1st). Due on due Goal Tdap. Due on due Goal CMP. Due on due Goal Diabetes screeni ng. Due on due Goal Rubeola Antibody Titer (igG). Due on due Goal Depression scree edgard. Due on due Goal Td vaccine. Due on 21 due Goal Cologuard (OUTSI DE ORDER). Due on due Goal Physical Exam. Due on due Goal Colonoscopy. Due on 026 due Goal CMP. Due on due Goal Cologuard (OUTSI DE ORDER). Due on due Goal Diabetes screeni ng. Due on due Goal Tdap. Due on due Goal Lipid panel. Due on 021 due Goal Zoster vaccine ( 1st). Due on due Goal Depression scree edgard. Due on due Goal Rubeola Antibody Titer (igG). Due on due Goal Td vaccine. Due on due Goal Physical Exam. Due on due Goal Physical Exam. Due on due Goal CMP. Due on due Goal Diabetes screeni ng. Due on due Goal Rubeola Antibody Titer (igG). Due on due Goal Tdap. Due on due Goal Td vaccine. Due on due Goal Lipid panel. Due on due Goal Cologuard (OUTSI DE ORDER). Due on due Goal Colonoscopy. Due on due Goal Depression scree edgard. Due on due Goal Rubeola Antibody Titer (igG). Due on due Goal Colonoscopy. Due on due Goal Depression scree edgard. Due on due Goal Lipid panel. Due on due Goal Tdap. Due on due Goal CMP. Due on due Goal Cologuard (OUTSI DE ORDER). Due on due Goal Zoster vaccine ( ). Due on due Goal Td vaccine. Due on due Goal Diabetes screeni ng. Due on due Goal Physical Exam. Due on due Goal Td vaccine. Due on due Goal Colonoscopy. Due on due Goal Tdap. Due on due Goal Diabetes screeni ng. Due on due Goal Physical Exam. Due on due Goal CMP. Due on due Goal Rubeola Antibody Titer (igG). Due on due Goal Zoster vaccine ( ). Due on due Goal Lipid panel. Due on due Goal Depression scree edgard. Due on due Goal Cologuard (OUTSI DE ORDER). Due on due Goal Depression scree edgard. Due on due Goal Colonoscopy. Due on due Goal Lipid panel. Due on due Goal Td vaccine. Due on due Goal Cologuard (OUTSI DE ORDER). Due on due Goal CMP. Due on due Goal Tdap. Due on due Goal Diabetes screeni ng. Due on due Goal Zoster vaccine ( ). Due on due Goal Physical Exam. Due on due Goal Rubeola Antibody Titer (igG). Due on due Goal Rubeola Antibody Titer (igG). Due on due Goal Colonoscopy. Due on due Goal Depression scree edgard. Due on due Goal Lipid panel. Due on due Goal Physical Exam. Due on due Goal CMP. Due on due Goal Td vaccine. Due on due Goal Diabetes screeni ng. Due on due Goal Cologuard (OUTSI DE ORDER). Due on due Goal Tdap. Due on due Goal Diabetes screeni ng. Due on due Goal Depression scree edgard. Due on due Goal Zoster vaccine ( 1st). Due on due Goal Physical Exam. Due on due Goal CMP. Due on due Goal Lipid panel. Due on due Goal Rubeola Antibody Titer (igG). Due on due Goal Cologuard (OUTSI DE ORDER). Due on due Goal Tdap. Due on due Goal Td vaccine. Due on due Goal Colonoscopy. Due on due Goal Depression scree edgard. Due on due Goal Tdap. Due on due Goal Cologuard (OUTSI DE ORDER). Due on due Goal Diabetes screeni ng. Due on due Goal Lipid panel. Due on due Goal CMP. Due on due Goal Physical Exam. Due on due Goal Rubeola Antibody Titer (igG). Due on due Goal Td vaccine. Due on due Goal Colonoscopy. Due on due Goal Lipid panel. Due on due Goal Diabetes screeni ng. Due on due Goal Td vaccine. Due on due Goal Tdap. Due on due Goal CMP. Due on due Goal Depression scree edgard. Due on due Goal Cologuard (OUTSI DE ORDER). Due on due Goal Zoster vaccine ( 1st). Due on due Goal Rubeola Antibody Titer (igG). Due on due Goal Physical Exam. Due on due Goal Colonoscopy. Due on due Goal Physical Exam. Due on due Goal Tdap. Due on due Goal Lipid panel. Due on due Goal Td vaccine. Due on due Goal Depression scree edgard. Due on due Goal Colonoscopy. Due on due Goal Cologuard (OUTSI DE ORDER). Due on due Goal Zoster vaccine ( ). Due on due Goal Rubeola Antibody Titer (igG). Due on due Goal Diabetes screeni ng. Due on due Goal CMP. Due on due Goal Depression scree edgard. Due on due Goal Lipid panel. Due on due Goal Physical Exam. Due on due Goal Td vaccine. Due on due Goal Tdap. Due on due Goal Colonoscopy. Due on due Goal Diabetes screeni ng. Due on due Goal Zoster vaccine ( 1st). Due on due Goal Rubeola Antibody Titer (igG). Due on due Goal CMP. Due on due Goal Cologuard (OUTSI DE ORDER). Due on due Goal Zoster vaccine ( 1st). Due on due Goal Depression scree edgard. Due on due Goal Physical Exam. Due on due Goal Colonoscopy. Due on due Goal Tdap. Due on due Goal CMP. Due on due Goal Cologuard (OUTSI DE ORDER). Due on due Goal Lipid panel. Due on due Goal Td vaccine. Due on due Goal Diabetes screeni ng. Due on due Goal Rubeola Antibody Titer (igG). Due on due Goal Tdap. Due on due Goal Depression scree edgard. Due on due Goal Physical Exam. Due on due Goal Cologuard (OUTSI DE ORDER). Due on due Goal CMP. Due on due Goal Colonoscopy. Due on due Goal Diabetes screeni ng. Due on due Goal Td vaccine. Due on due Goal Rubeola Antibody Titer (igG). Due on due Goal Lipid panel. Due on due Goal Zoster vaccine ( 1st). Due on due Goal Tdap. Due on due Goal Lipid panel. Due on due Goal Physical Exam. Due on due Goal CMP. Due on due Goal Cologuard (OUTSI DE ORDER). Due on due Goal Rubeola Antibody Titer (igG). Due on due Goal Colonoscopy. Due on due Goal Td vaccine. Due on due Goal Diabetes screeni ng. Due on due Goal Depression scree edgard. Due on due Goal Diabetes screeni ng. Due on due Goal Cologuard (OUTSI DE ORDER). Due on due Goal Physical Exam. Due on due Goal Td vaccine. Due on due Goal CMP. Due on due Goal Colonoscopy. Due on due Goal Rubeola Antibody Titer (igG). Due on due Goal Depression scree edgard. Due on due Goal Tdap. Due on due Goal Lipid panel. Due on due Goal Depression scree edgard. Due on due Goal Diabetes screeni ng. Due on due Goal Physical Exam. Due on due Goal Td vaccine. Due on due Goal Cologuard (OUTSI DE ORDER). Due on due Goal Tdap. Due on due Goal Rubeola Antibody Titer (igG). Due on due Goal Colonoscopy. Due on due Goal Zoster vaccine ( 1st). Due on due Goal Lipid panel. Due on due Goal CMP. Due on due Goal Lipid panel. Due on due Goal Sigmoidoscopy. Due on due Goal Diabetes screeni ng. Due on due Goal Pneumovax 23. Due on 2029 due Goal CMP. Due on due Goal Tdap. Due on due Goal Depression scree edgard. Due on due Goal Rubeola Antibody Titer (igG). Due on due Goal FOBT. Due on due Goal Physical Exam. Due on due Goal Cologuard (OUTSI DE ORDER). Due on due Goal Colonoscopy. Due on due Goal Td vaccine. Due on due Goal Td vaccine. Due on due Goal Lipid panel. Due on due Goal Tdap. Due on due Goal FOBT. Due on due Goal Sigmoidoscopy. Due on due Goal Cologuard (OUTSI DE ORDER). Due on due Goal Depression scree edgard. Due on due Goal Physical Exam. Due on due Goal Diabetes screeni ng. Due on due Goal Influenza vaccin e. Due on due Goal Rubeola Antibody Titer (igG). Due on due Goal Colonoscopy. Due on due Goal CMP. Due on due Goal Dietary manageme nt education, guidance, and counseling completed Goal Td vaccine. Due on 19 due Goal Depression scree edgard. Due on due Goal Cologuard (OUTSI DE ORDER). Due on due Goal Diabetes screeni ng. Due on due Goal CMP. Due on due Goal Lipid panel. Due on due Goal Rubeola Antibody Titer (igG). Due on due Goal Influenza vaccin e. Due on due Goal FOBT. Due on due Goal Tdap. Due on due Goal Colonoscopy. Due on 026 due Goal Sigmoidoscopy. Due on due Goal Physical Exam. Due on due Goal Sigmoidoscopy. Due on due Goal Diabetes screeni ng. Due on due Goal Td vaccine. Due on 19 due Goal CMP. Due on due Goal Rubeola Antibody Titer (igG). Due on due Goal FOBT. Due on due Goal Physical Exam. Due on due Goal Tdap. Due on due Goal Depression scree edgard. Due on due Goal Colonoscopy. Due on 026 due Goal Lipid panel. Due on due Goal Cologuard (OUTSI DE ORDER). Due on due Goal Influenza vaccin e. Due on due Goal Tdap. Due on due Goal Sigmoidoscopy. Due on due Goal Depression scree edgard. Due on due Goal CMP. Due on due Goal Diabetes screeni ng. Due on due Goal Physical Exam. Due on due Goal Rubeola Antibody Titer (igG). Due on due Goal FOBT. Due on due Goal Cologuard (OUTSI DE ORDER). Due on due Goal Lipid panel. Due on due Goal Colonoscopy. Due on due Goal Influenza vaccin e. Due on due Goal Td vaccine. Due on due Goal Cologuard (OUTSI DE ORDER). Due on due Goal Lipid panel. Due on due Goal Td vaccine. Due on due Goal Colonoscopy. Due on due Goal Physical Exam. Due on due Goal Tdap. Due on due Goal Sigmoidoscopy. Due on due Goal Diabetes screeni ng. Due on due Goal FOBT. Due on due Goal CMP. Due on due Goal Depression scree edgard. Due on due Goal Influenza vaccin e. Due on due Goal FOBT. Due on due Goal Physical Exam. Due on due Goal Influenza vaccin e. Due on due Goal Lipid panel. Due on due Goal Tdap. Due on due Goal Td vaccine. Due on due Goal CMP. Due on due Goal Colonoscopy. Due on due Goal Sigmoidoscopy. Due on due Goal Diabetes screeni ng. Due on due Goal Depression scree edgard. Due on due Goal Cologuard (OUTSI DE ORDER). Due on due Goal FOBT. Due on due Goal Diabetes screeni ng. Due on due Goal CMP. Due on due Goal Depression scree edgard. Due on due Goal Tdap. Due on due Goal Td vaccine. Due on due Goal Colonoscopy. Due on due Goal Physical Exam. Due on due Goal Lipid panel. Due on due Goal Sigmoidoscopy. Due on due Goal Influenza vaccin e. Due on due Goal Cologuard (OUTSI DE ORDER). Due on due Goal Physical Exam. Due on due Goal Tdap. Due on due Goal Influenza vaccin e. Due on due Goal FOBT. Due on due Goal Diabetes screeni ng. Due on due Goal Sigmoidoscopy. Due on due Goal Colonoscopy. Due on 026 due Goal CMP. Due on due Goal Depression scree edgard. Due on due Goal Cologuard (OUTSI DE ORDER). Due on due Goal Td vaccine. Due on 19 due Goal Lipid panel. Due on 019 due Goal Dietary manageme nt education, guidance, and counseling completed Goal FOBT. Due on due Goal Depression scree edgard. Due on due Goal Td vaccine. Due on 19 due Goal Tdap. Due on due Goal Sigmoidoscopy. Due on due Goal Lipid panel. Due on 019 due Goal Colonoscopy. Due on 026 due Goal Cologuard (OUTSI DE ORDER). Due on due Goal Physical Exam. Due on due Goal CMP. Due on due Goal Influenza vaccin e. Due on due Goal Diabetes screeni ng. Due on due Goal Dietary manageme nt education, guidance, and counseling completed Goal Sigmoidoscopy. Due on due Goal Depression scree edgard. Due on due Goal Tdap. Due on due Goal Td vaccine. Due on 18 due Goal Cologuard (OUTSI DE ORDER). Due on due Goal Physical Exam. Due on due Goal Influenza vaccin e. Due on due Goal FOBT. Due on due Goal Colonoscopy. Due on due Goal CMP. Due on due Goal Microalbumin, ra ndom Urine. Due on due Goal Diabetes screeni ng. Due on due Goal Colonoscopy. Due on due Goal Sigmoidoscopy. Due on due Goal Influenza vaccin e. Due on due Goal Depression scree edgard. Due on due Goal Microalbumin, ra ndom Urine. Due on due Goal CMP. Due on due Goal Cologuard (OUTSI DE ORDER). Due on due Goal Physical Exam. Due on due Goal Diabetes screeni ng. Due on due Goal Td vaccine. Due on 18 due Goal Tdap. Due on due Goal FOBT. Due on due Goal Dietary manageme nt education, guidance, and counseling completed Goal Diabetes screeni ng. Due on due Goal Depression scree edgard. Due on due Goal Td vaccine. Due on 18 due Goal Colonoscopy. Due on due Goal CMP. Due on due Goal Sigmoidoscopy. Due on due Goal Tdap. Due on due Goal FOBT. Due on due Goal Cologuard (OUTSI DE ORDER). Due on due Goal Physical Exam. Due on due Goal Influenza vaccin e. Due on due Goal Microalbumin, ra ndom Urine. Due on due Goal Dietary manageme nt education, guidance, and counseling completed Goal Depression scree edgard. Due on due Goal Microalbumin, ra ndom Urine. Due on due Goal Influenza vaccin e. Due on due Goal Physical Exam. Due on due Goal Sigmoidoscopy. Due on due Goal FOBT. Due on due Goal Td vaccine. Due on 18 due Goal Tdap. Due on due Goal Colonoscopy. Due on 027 due Goal Diabetes screeni ng. Due on due Goal CMP. Due on due Goal Cologuard (OUTSI DE ORDER). Due on due Goal CMP. Due on due Goal Microalbumin, ra ndom Urine. Due on due Goal Td vaccine. Due on 17 due Goal Physical Exam. Due on due Goal Influenza vaccin e. Due on due Goal Diabetes screeni ng. Due on due Goal Tdap. Due on due Goal Colonoscopy. Due on 027 due Goal Cologuard (OUTSI DE ORDER). Due on due Goal FOBT. Due on due Goal Depression scree edgard. Due on due Goal Sigmoidoscopy. Due on due Goal Pneumovax 23 due Goal Lifestyle education regardin g diet completed Goal Tobacco cessation counseling completed Goal Tobacco cessation counseling completed Goal Tdap. Due on due Goal Influenza vaccin e. Due on due Goal Td vaccine. Due on 17 due Goal Microalbumin, ra ndom Urine. Due on due Goal Influenza vaccin e. Due on due Goal Microalbumin, ra ndom Urine. Due on due Goal Tdap. Due on due Goal Td vaccine. Due on due Goal Dietary manageme nt education, guidance, and counseling completed Goal Td vaccine. Due on due Goal Influenza vaccin e. Due on due Goal Microalbumin, ra ndom Urine. Due on due Goal Tdap. Due on due Goal Microalbumin, ra ndom Urine. Due on due Goal Td vaccine. Due on 17 due Goal Influenza vaccin e. Due on due Goal Tdap. Due on due Goal Microalbumin, ra ndom Urine. Due on due Goal Tdap. Due on due Goal Influenza vaccin e. Due on due Goal Td vaccine. Due on 17 due Goal Tdap. Due on due Goal Influenza vaccin e. Due on due Goal Microalbumin, ra ndom Urine. Due on due Goal Td vaccine. Due on 17 due Goal Influenza vaccin e. Due on due Goal Td vaccine. Due on due Goal Tdap. Due on due Goal Microalbumin, ra ndom Urine. Due on due Goal Microalbumin, ra ndom Urine. Due on due Goal Tdap. Due on due Goal Influenza vaccin e. Due on due Goal Td vaccine. Due on 16 due Goal Td vaccine. Due on 16 due Goal ECG. Due on due Goal Influenza vaccin e. Due on due Goal Microalbumin, ra ndom Urine. Due on due Goal Tdap. Due on due Goal ECG. Due on due Goal Tdap. Due on due Goal Microalbumin, ra ndom Urine. Due on due Goal Td vaccine. Due on 16 due Goal Influenza vaccin e. Due on due Goal Lifestyle education regardin g diet completed Goal Tobacco cessation counseling completed Goal Tobacco cessation counseling completed Referral Ordered: Francis Morejon MD (related to Non-small cell cancer of left lung) ordered Referral Referred To: Francis Morejon MD [address] [place], [place], [phone] Ordered: Referrals: Referrals: Referrals: Oncology. Francis Morejon MD. Consult ordered Referral Ordered: Referrals: Referrals: Pulmonology. Consult ordered Referral Ordered: Referrals: Referrals: Otolaryngology. Consult ordered Referral Referred To: Randal Raza MD [address] [place] [address], [id number] [phone] Ordered: Referrals: Cardiology. Randal Raza MD. Consult ordered Referral Ordered: Ren Canela M.D. (related to Osteoarthritis of right knee, unspecified osteoarthritis type) ordered Referral Referred To: Ren Canela M.D. Ordered: Referrals: Alternative Medicine. Ren Canela M.D.. Location: [facility]. Consult ordered Referral Ordered: Referrals: Orthopedic Surgery. Evaluate and treat ordered Referral Ordered: UGI Endo Diag Appointment date/timeframe: Routine ordered Referral Ordered: Referrals: Surgery. Consult ordered Referral Ordered: Orthopedic Surgery (related to Pain in right knee) ordered Referral Ordered: Referrals: Orthopedic Surgery. Consult ordered Referral Ordered: Colonoscopy Screening/Diagnostic Appointment date/timeframe: 5 Years ordered Referral Ordered: Referrals: Otolaryngology. Consult ordered Patient Education Hoarseness: Care Instru ctions completed Patient Education Learning About Polyphar jewels completed Patient Education High Blood Pre ssure: Care Instructions completed Patient Education Mediterranean Diet: Care Instructions completed Patient Education Learning About Low-Fat Eating completed Patient Education Knee Arthritis: Care In structions completed Patient Education Knee Arthritis: Exercis es completed Patient Education Osteoarthritis: Care In structions completed Patient Education Joint Injections: Care Instructions completed Patient Education Cholesterol an d Triglycerides Tests: Abo completed Patient Education High Blood Pre ssure: Care Instructions completed Patient Education Mediterranean Diet: Care Instructions completed Patient Education Gastroesophage al Reflux Disease (GERD) i completed Patient Education Learning About Low-Fat Eating completed Patient Education Gastroesophage al Reflux Disease (GERD~ completed Patient Education Stopping Smoking: Care Instructions completed Patient Education High Blood Pre ssure: Care Instructions completed Patient Education Mediterranean Diet: Care Instructions completed Patient Education Learning About Low-Fat Eating completed Patient Education Epidermoid Cyst: Care I nstructions completed Patient Education Skin Abscess: Care Inst ructions completed Patient Education Saline Nasal W ashes: Care Instructions completed Patient Education Knee: Exercises complet ed Patient Education High Blood Pre ssure: After Your Visit completed Future Order: Radiol ogy Order CT CHEST WO CONTRAST ([id number]), Collected on: , Sent on: Sent Future Order: Radiol ogy Order XR SCREENING OF EYE FOR DETECTION OF FOREIGN BODY ([id number]), Sent on: Sent Future Order: Lab Order IStat Cr eatinine ([id number]), Ordered on: Ordered Future Order: Radiol ogy Order Echo 2D Color Doppler (TTE W/ Doppler, Complete) ([id number]), Collected on: , Sent on: Sent History Of Present Illness Encounter Date Complaint History Of Prese nt Illness Shortness of breath continues wi th SOB , but improved from prior Lung cancer The problem is w orsening. Initial symptoms include hoarseness and shortness of breath. He is also experiencing cough, dyspnea and fatigue. Pertinent negatives include abdominal pain, bleeding, chest pain, chills, dizziness, dysuria, fever, headache, hives, insomnia, nausea, night sweats, rash, vomiting and weight loss. Additional information: managed by Dr. Vanegas HFU (comments) This visit was a virtual visit via [facility] due to DENNIS . The patient understood that they may incur co-pays and cost sharing, and agreed to the telemedicine visit. This visit was deemed appropriate for virtual visit and reasonable under the circumstances given the patient's presentation at the time.The patient has agreed to the potential risks and limitations of this mode of treatment (including, but not limited to, the absence of in-person examination) and has agreed to proceed with the visit. COPD (follow up) The COPD (follo w up) began since the last office visit. The COPD (follow up) has stabilized. The patient rates the severity of the symptoms as moderately severe. Symptom is aggravated by mild activity, moderate activity and smoking. Symptoms relieved by resting, sitting, use of long-acting anti-cholinergic inhaler and use of long-acting beta agonist/steroid inhaler. Associated symptoms include dry cough, dyspnea with exertion, morning cough, morning phlegm production and wheezing. Pertinent negatives include awakening with cough, awakening with wheezing, chest pain, chest pressure/discomfort, dyspnea at rest, excessive sputum, hemoptysis, irregular heartbeat/palpitations, nausea, nocturnal dyspnea, orthopnea, pleuritic pain, productive cough, purulent sputum and tremors. HFU was admitted to [facility] with infected port and pneumonia Lung Cancer He is also exper iencing cough, dyspnea and fatigue. Pertinent negatives include abdominal pain, bleeding, chest pain, chills, dizziness, dysuria, fever, headache, hives, insomnia, nausea, night sweats, rash, vomiting and weight loss. Additional information: managed by [facility] oncology Dr. Vanegas Coronary artery disease tobacco use hyperlipidemia hypertension Coronary artery disease tobacco use (comments) reduced n ow; cough and smoking prompted an echocardiogram and a CXR which were ok and cough continued and a CT showed a hilar mass found to be NSCLC with possible spinal metastatic disease on PET and s/p radiation and followed by Pulmonary and Oncology and palliative care. hyperlipidemia (comments) chroni c, stable hypertension (comments) chronic, stable Coronary artery dise ase (comments) new issue with 2019 heart score of 374 which is intermediate risk, but adjusted FRS is very high risk. The patient reports no chest pain, dyspnea, orthopnea, PND, or syncope. Current medications were reviewed with the patient and the medication list was updated. Tolerating the medications without concerning side effects. Reviewed recent lab work and test results. He was taking 32 flights of stairs (now 7 ) at work each day and riding his bike for miles with no symptoms. knee issues that limit running/walking. lung cancer Initial symptoms include bone pain, fatigue, hoarseness and shortness of breath. Performance status is scored as a 0. The patient is fully active and able to perform all normal activities. He is also experiencing dyspnea and fatigue. Pertinent negatives include abdominal pain, bleeding, chest pain, chills, constipation, cough, diarrhea, dizziness, dysuria, fever, insomnia, nausea, night sweats, rash and vomiting. Additional information: Stage IV -- managed by oncology. Now with SOB after chemo fu after pet The symptoms beg an acute onset. The symptoms are reported as being severe. The symptoms occur constantly. Aggravating factors include smoking. Associated symptoms include hoarseness, back pain. He states the symptoms are acute and are of new onset. PET with hyperactivityprelim bronch results with NSCLC Vocal Cord dysfunction developed hoarseness overnight 12 weeks agohas seen ENT, Dr. Hyde, laryngoscope with left VC dysfxn hilar mass The symptoms beg an gradual onset. The symptoms are reported as being moderate. The symptoms occur constantly. Associated symptoms include hoarseness, dyspnea, fatigue, cough. He states the symptoms are acute and are of new onset. CT neck with left hilar massCurrent smoker - 1.5 ppd x 25 yearsmother 3 years ago from lung cancer. 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 Asbestos exposure for approx 5-10 yearssome dyspnea with heat/humidity, some cough, wheezing - progressive over the last 12 weeksincreased fatigue no unexplained weight lossrare dysphagia with water Follow Up of Hyperlipidemia Risk factors include age over 50. The patient is adhering to medication for their hyperlipidemia. Pertinent negatives include chest pain. Additional information: LDL is OK at this time. Hypogonadism The symptoms are reported as being moderate. Teststerone is good at 1200 states he just got the shot prior to the last labs Follow Up of Hypertension It is currently stable. Risk factors include heavy ETOH consumption, male gender and smoking. Pertinent negatives include chest pain and fatigue. Additional information: BP is Controlled. Hand arthritis The symptoms are reported as being moderate. 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 hoarseness (comments) 2-month hi story of hoarseness. smoker but no significant heartburn or shortness of breath. No hemoptysis, recent intubation, thyroid disease or surgery, neck surgery or trauma, known neurologic disease, vocal abuse, or profession voice user. Voice rest helps a little. Symptoms are worse with more voice use. hoarseness voice loss The symptoms beg an 10 days ago. The symptoms are reported as being mild. Associated symptoms include hoarseness. Pertinent negatives include fever, chills, sore throat, runny nose, cough. He states the symptoms are acute and are unchanged. smoker for 15 yearsnot painful hypertension Coronary artery disease hyperlipidemia Coronary artery disease tobacco use tobacco use (comments) chronic, stable hyperlipidemia (comments) chroni c, stable hypertension (comments) chronic, stable Coronary artery dise ase (comments) new issue with 2019 heart score of 374 which is intermediate risk, but adjusted FRSis very high risk. The patient reports no chest pain, dyspnea, orthopnea, PND, or syncope. Current medications were reviewed with the patient and the medication list was updated. Tolerating the medications without concerning side effects. Reviewed recent lab work and test results. 32 flights of stairs at work each day and riding his bike for miles with no symptoms. knee issues that limit running/walking. Discuss Heart Score Calcium jihan l's OK at this time. hyperlipidemia Risk factors inc lude age over 50. The patient is adhering to medication for their hyperlipidemia. Hyperlipidemia management includes statins. Pertinent negatives include chest pain. Preventive exam Knee Pain Severity level i s moderate-severe. It occurs intermittently. Location: right knee. There is no radiation. The pain is sharp. Context: there is no injury. The pain is aggravated by climbing (and descending) stairs. The pain is relieved by injection. Associated symptoms include decreased mobility. Pertinent negatives include bruising, numbness, spasms and swelling. Hand Dominance: right. Additional information: Patient reports he is about 50% better after durolane RT knee; he is still having trouble with stairs. GERD The severity of the problem is mild. Pertinent negatives include dyspnea.Additional information:Omeprazole has helped. Follow Up of Hypertension It is currently stable. Risk factors include heavy ETOH consumption, male gender and smoking. Pertinent negatives include chest pain, dyspnea and fatigue. Follow Up of Hyperlipidemia Risk factors include age over 50. The patient is not adhering to medication for their hyperlipidemia. Pertinent negatives include chest pain and dyspnea. Additional information: Trigs 457. Knee Pain Severity level i s moderate-severe. Location: right knee. The pain radiates to the hip. The pain is sharp. The pain is aggravated by climbing (and descending) stairs, movement and walking. The pain is relieved by OTC medicines (ibuprofen). Associated symptoms include popping. Pertinent negatives include bruising, numbness, spasms and tingling in the legs. Hand Dominance: right. Knee Pain Severity level i s moderate-severe. Location: right knee. The pain radiates to the heel and hip. The pain is sharp. Context: there is no injury. The pain is aggravated by climbing (and descending) stairs, movement, walking and standing. The pain is relieved by OTC medicines (ibuprofen). Associated symptoms include popping. Pertinent negatives include bruising, numbness and tingling in the legs. Hand Dominance: right. Additional information: patient states he had arthroscopic surgery for a torn meniscus in 2014. Joint pain Severity level i s moderate. It occurs constantly and is worsening. Location: right knee. The pain is burning and piercing. The pain is aggravated by movement. The pain is relieved by injection and OTC medicines (ibuprofen). Associated symptoms include joint tenderness, limping, locking and popping. Pertinent negatives include bruising, crepitus, decreased mobility, difficulty initiating sleep, joint instability, nocturnal awakening, numbness, tingling in the legs and weakness. Hand Dominance: right. 10-14 day follow up after procedure (comments) pt returs for foll ow u[esoph path consistent with barretts started on prilsoec 20 daily, still with gerd 10-14 day follow up after procedure Dysphagia Dysphagia (comments) pt with cnr onic heartburn with dysphagia noted fo the past year occurs3-4 x per week, with solids.\ Preventive exam Men's preventive visit. Patient is on a healthy diet. Concern(s)/Requests Detail: last colonoscopy 07/2015, repeat 2019 Relevant history is positive for tobacco use, passive smoke exposure, alcohol use. Chronic conditions 1) Essential (primary) hypertension (Well Controlled. patient is still smoking, but is increasing exercise and working on diet and weight loss.) 2) Hypogonadism in male (Well Controlled. Taking testosterone shots) 3) Personal history of nicotine dependence (Unchanged.) 4) Pure hypercholesterolemia (Suboptimal Control. Not well controlled. Trigs improved and total cholesterol normal, but ldl slightly elevated today) Pertinent negatives include fatigue. Preventive exam Men's preventive visit. Patient Health Questionnaire (PHQ-2) is negative. Patient is on a healthy diet. Concern(s)/Requests Detail: Immunizations = due for flu and pna vaccinechronic conditions discussed: HTN, HLD, GERD, smoking, hypogonadism post OP Mr. Chacon is in for wound check. It looks great. post OP Mr. Chacon is in for wound check, looks great, healing well. Sebaceous cyst Mr. Chacon is in for excision of a sebaceous cyst on his back. hypertension It is currently stable. The hypertension is exacerbated by nothing. Pertinent negatives include chest pain, dyspnea, headache, hematuria, irregular heartbeat/palpitations and visual disturbances. GERD The problem is i mproving. There is no radiation of pain. The patient reports heartburn. It occurs randomly. Context: treatment with PPIs. The symptoms are aggravated by fatty foods. The symptoms are relieved by PPI. Pertinent negatives include dyspnea. smoking The symptoms are reported as being moderate. The symptoms occur constantly. He states the symptoms are chronic. Patient interested in taking meds to help quit Hypogonadism The symptoms hav e been mild and are improving. The patient is here today for a follow up visit. Pertinent history includes use of antihypertensives, hyperlipidemia, hypertension and smoking but not diabetes. hyperlipidemia The patient is a dhering to medication and follow-up for their hyperlipidemia. Hyperlipidemia management includes statins. Pertinent negatives include chest pain, constipation, diarrhea, dyspnea, hematuria, palpitations and polyuria. Skin lesion The problem is m oderate, improved and occurs continuously. Area(s) of concern include the L upper back. The lesion(s) have been previously treated with I&D. The patient denies aggravating factors. The does not report any relieving factors. Associated symptoms include a purulent lesion discharge. The reports no blistering, erythema, fatigue, pruritus, non-healing sores, scaly skin or skin irritation. Skin lesion The problem is m oderate, worsened and occurs continuously. The lesion(s) of concern is described as growing. The patient has not been previously treated. The patient denies aggravating factors. The does not report any relieving factors. Associated symptoms include erythema. The reports no blistering, fatigue, pruritus, lesion discharge, painful lesions, pigment change, recurrent bleeding lesions or skin irritation. Sinus symptoms (acute) (FP) Onse t: 4 Days. The severity of the problem is moderate. The problem has worsened. Both sides are affected. Pertinent/initial symptoms include sinus pain. Denies aggravating factors. Denies relieving factors. Associated symptoms include cough, fever, nasal drainage, postnasal drainage and sinus pressure. Pertinent negatives include headache, otalgia, rhinorrhea or sore throat. Additional information: no improvement with otc afrin. Knee Pain Onset: sudden. D uration: 1-4 minutes. Severity level is mild. It occurs intermittently and is fluctuating. Location: right knee. There is no radiation. The pain is aching. Context: there is no injury. The pain is aggravated by movement. The pain is relieved by pain/RX meds. Associated symptoms include decreased mobility, joint tenderness and weakness. Pertinent negatives include bruising. Hand Dominance: right. Additional information: c/o R knee pain since 06/2015 when Meniscus debridement was done. Reports discomfort on R knee but able to bear it. Wants injection. No further concerns. Preventive exam Men's preventive visit. Concern(s)/Requests Detail: Last colonoscopy = last colonoscopy 2014, repeat 2020Immunizations = flu shot given this year but patient cannot remember where Hypogonadism The symptoms hav e been mild and are improving. The patient is here today for a follow up visit. Pertinent history includes hyperlipidemia, hypertension and smoking. Additional information: well controlled with testosterone replacement. hypertension It is currently getting worse. Risk factors include heavy ETOH consumption, male gender and smoking. The hypertension is exacerbated by nothing. Pertinent negatives include chest pain, dyspnea, headache, hematuria, irregular heartbeat/palpitations and visual disturbances. Additional information: patient's anniversary was yesteryday, he reports binge drinking hyperlipidemia Risk factors inc lude age over 50. The patient is adhering to follow-up for their hyperlipidemia. The patient is not adhering to diet for their hyperlipidemia. Pertinent negatives include chest pain, constipation, diarrhea, dyspnea, hematuria, palpitations and polyuria. external right ear c yst (comments) 6 week history of a persistent fluid filled swelling right external ear. His aspirated the same area only to have the fluid quickly reaccumulated. No history of trauma. external right ear cyst Follow Up of procedure pt return s for follow up/low risk adenoma removed repeat colon in 5 years Ear discomfort Onset: 2 weeks a go. The states the ear discomfort is in the right ear. It occurs constantly. The problem is worse. Denies aggravating factors. Denies relieving factors. Associated symptoms include fullness in ears and redness/swelling outer ear. Pertinent negatives include bleeding from ear(s), congestion (nasal), cough, dizziness, drainage (clear), drainage (purulent), ear popping, ear pressure, fever, hearing deficit, loss of balance, nausea, ringing in ears and vomiting. Additional information: Bump in R ear, Pt. states no sx, drained 2 days ago and and bump came back. Preventive exam Men's preventive visit. No complaints or concerns.Last colonoscopy =due this yearImmunizations = needs flu shot Hypogonadism The symptoms hav e been mild and are resolved. The patient is here today for a follow up visit. He denies depression. Preventive exam (IM) Men's preve ntive visit. Preventive exam (IM) (comments) just ran out of testosterone. I'm on injections for that. doctor in [facility] had me on q2 wks and doctor here had me on q5d Functional Status Date Description Comments No Information Instructions Date Instruction Additional Infor mitch Reviewed pertinent i nformation about medical condition with pt. Condition is stable at this point current treatment plan reviewed with pt. no changes made in therapy. Related to Essential (primary) hypertension Reviewed pertinent i nformation about medical condition with pt. Condition is stable at this point current treatment plan reviewed with pt. no changes made in therapy. Related to Mixed hyperlipidemia If no improvement de spite treatment f/u with PCP Related to Laryngitis Reviewed pertinent i nformation about medical condition with pt. Condition is stable at this point current treatment plan reviewed with pt. no changes made in therapy. Related to Mixed hyperlipidemia Reviewed pertinent i nformation about medical condition with pt. Condition is stable at this point current treatment plan reviewed with pt. no changes made in therapy. Related to Essential (primary) hypertension Dietary management e ducation, guidance, and counseling Related to Body mass index (BMI) 32.0-32.9, adult Reviewed pertinent i nformation about medical condition with pt. Condition is stable at this point current treatment plan reviewed with pt. no changes made in therapy. Related to Essential (primary) hypertension Rest with gentle ret urn to mobility, ice/heat to affected area, compression wrap, elevation, and ibuprofen. Follow up if symptoms worsen or if symptoms are not resolving as expected. Stretches and strengthening exercises may also be helpful. Related to Chronic pain of right knee Giving encouragement to exercise Related to Body mass index (BMI) 31.0-31.9, adult Dietary management e ducation, guidance, and counseling Related to Body mass index (BMI) 31.0-31.9, adult increase prilsoc to 40 daily office 6 weeksegd one year Related to Etienne's esophagus without dysplasia Dietary management e ducation, guidance, and counseling Related to Body mass index (BMI) 31.0-31.9, adult as below Related to Heart burn egd scheduled Related to Dysph agia, unspecified Dietary management e ducation, guidance, and counseling Related to Body mass index (BMI) 30.0-30.9, adult Eat small frequent m eals and avoid provocative foods. Elevate head of bed. Stay upright for 1 hour after eating. Take antacids as needed and follow up if symptoms persisting or worsening. Related to Gastroesophageal reflux disease without esophagitis Dietary management e ducation, guidance, and counseling Related to Body mass index (BMI) 31.0-31.9, adult Giving encouragement to exercise Related to Body mass index (BMI) 31.0-31.9, adult Stop smoking. Related to Pure hypercholesterolemia Elevate head of bed prior to sleep Related to Gastroesophageal reflux disease without esophagitis Increase activity. Related to Pu re hypercholesterolemia Increase activity. Related to Es sential (primary) hypertension Follow a low sodium diet. Relate d to Pure hypercholesterolemia Stop smoking. Related to Essen tial (primary) hypertension Eat smaller meals, n o eating three hours prior to bedtime Related to Gastroesophageal reflux disease without esophagitis Avoid provocative fo ods: citrus, alcohol, coffee, chocolate, mints Related to Gastroesophageal reflux disease without esophagitis Follow a low sodium diet. Relate d to Essential (primary) hypertension Lifestyle education regarding diet Related to Body mass index (BMI) 31.0-31.9, adult Giving encouragement to exercise Related to Body mass index (BMI) 31.0-31.9, adult Dietary management e ducation, guidance, and counseling Related to Body mass index (BMI) 30.0-30.9, adult The patient verbaliz ed an understanding of the plan. Related to Primary osteoarthritis of right knee Lifestyle education regarding diet Related to Body mass index (BMI) 29.0-29.9, adult Giving encouragement to exercise Related to Body mass index (BMI) 29.0-29.9, adult Assessments Type Assessment Date No Information
--- OUTSIDE RECORDS SUMMARY | 2025-02-01 08:00 | XMS_ITS ---
Author [facility] Address [address] [place] [address] Care Team Providers Care Blueprint Reproducer Name Role Phone Quan RUCKER, Ron[place] Primary Care Provider Unava ilable Candy Sandhu Unavailable [phone] Lemos Encounters Encounter Location Date [facility] [address] [address] 02/01/2025 Candy Sandhu Plan Of Treatment Next Appt Details Provider Name:Candy ruiz, 11/12/2025 03:15:00 PM, [address] [place] [address], [phone], Progress Notes * FRANCESCO CelioTrinidadOB:1965 (60 yo M)Acc No.[id number]:02/01/2025 Progress Note Patient: Quintin HANNA Provider: Dev Sandhu DPM :1965 A ge:60 Y S ex:Male Date:02/01/2025 Address:[address] [place] [address] Pcp:Ronnell Glass MD Subjective: * Chief Complaints: * [address] Lemos[address] * Medical History: Objective: * Vitals: Assessment: Plan: * Treatment: * Images: * The named appointment provid er may or may not be the originator of this progress note, and it is not deemed complete until electronically signed by the appointment provider. Sign off status: Pending * Provider: Dev Sandhu DPM Date: 0 02/01/2025 Generated for Carine Contreras/Kassy on: 1 11/07/2024 04:21 PM EST
--- OUTSIDE RECORDS SUMMARY | 2025-05-07 09:30 | XMS_ITS ---
Author Organization [facility] Address [address] [place] [address] Care Team Providers Care Search Engine Optimization Specialist Name Role Phone Quan RUCKER, Ronnell Primary Care Provider Unava ilable Candy Sandhu Unavailable [phone] Lemos Encounters Encounter Location Date Provider [facility] [address] [address] 05/07/2025 Candy Sandhu Plan Of Treatment Next Appt Details Provider Name:Candy ruiz, 11/12/2025 03:15:00 PM, [address] [place] [address], [phone], Progress Notes * FRANCESCO CelioTrinidadOB:1965 (60 yo M)Acc No.[id number]:05/07/2025 Progress Note Patient: Quintin HANNA Provider: Dev Sandhu DPM :1965 A ge:60 Y S ex:Male Date:05/07/2025 Address:[address] [place] [address] Pcp:Ronnell Glass MD Subjective: * Chief Complaints: [...] 0 05/07/2025 Generated for Carine Contreras/Kassy on: 11/07/2024 04:21 PM EST
[2025-09-06 15:10] VITALS: BP 148/86; PULSE 69; O2SAT 98; BMI 40.4
--- NOTE | 2025-09-06 15:10 | MHC.OFFVIS ---
Vital Signs 09/06/25 15:10 Height 5 ft 9 in Weight 273 lb 13.026 oz BMI 40.4 BP 148/86 H Blood Pressure Location Lt brachial Position Sitting Pulse 69 Pulse Source Pulse Oximeter Pulse Oximetry (%) 98 Oxygen Delivery Method Room Air Intake Visit Reasons: dm Intake Note: Patient present today for Type 2 Diabetes Mellitus Last Diabetic eye exam: Never had an exam but [facility]: [facility] Glucose: 189 mg/dl HgA1C: 8.4% 08/27/25 Shirt Bander Required: No Accompanied by: Self / Same As Patient Allergies regadenoson (From Uskape) Adverse Reaction (Severe, Verified 09/06/25 15:16) seizure type activity Medication List - Last Reconciled 09/06/25 by Paula Mcdonough PA-C amlodipine 5 mg PO DAILY apixaban (Eliquis) 5 mg PO BID 90 days atorvastatin 20 mg PO BEDTIME 90 days blood sugar diagnostic (OneTouch Ultra Test strips) As directed -tests 4 X/day blood-glucose meter (OneTouch Ultra2 Meter) As directed tests 4 X/day blood-glucose sensor (FreeStyle Tish 3 Plus Sensor device) Use daily As directed to monitor glucose blood-glucose,journeyman electrician pv installer,cont (FreeStyle Tish 3 [place]) As directed bumetanide 2 mg PO BID 30 days carvedilol 12.5 mg PO BID cholecalciferol (vitamin D3) 50 mcg PO DAILY 90 days hydralazine 50 mg PO BID 90 days insulin glargine (Basaglar KwikPen U-100 Insulin) 10 units (0.1 mL) subcut QPM 30 days isosorbide mononitrate ER 30 mg PO DAILY lancets As directed lancets As directed-tests 4 X/day pen needle, diabetic As directed spironolactone 50 mg (2 x 25 mg) PO QAM tamsulosin 0.4 mg PO DAILY 90 days HPI HPI dm: Details: Patient is a 60yo male with DM type 2 diagnosed at age 40 years of age, who presents for continued management of diabetes. He was last seen 10/27/24 by my colleague. Current Diabetes Medications: Basaglar 10 units - he has not been using it even though he states he now should be Trulicity 1.5 mg Qwkly When he finger sticks it is 140ish He states he does not tolerate higher doses of trulicity. He has been less compliant with diet. 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 follows with cardiology Nephro: follows regularly. [facility] Medical History Liver mass Vitamin D deficiency Obesity (BMI 30-39.9) Pure hypercholesterolemia Benign essential hypertension Combined systolic and diastolic congestive heart failure Chronic kidney disease (CKD), stage III (moderate) Diabetic foot ulcer with osteomyelitis Complete heart block CHF (congestive heart failure) BPH (benign prostatic hyperplasia) Proteinuria Hyperlipidemia Essential hypertension Normally functioning cardiac pacemaker present Chronic right heart failure Heart block CKD (chronic kidney disease) Hypertension Type 2 diabetes mellitus Pacemaker Surgical History History of amputation of toe History of cardiac cath History of cardiac pacemaker (~04/15/20) Family History Mother CVA (cerebral vascular accident) Diabetes Social History Housing: Apartment Alcohol intake: never Patient Tobacco Use Status: Never used Tobacco Tobacco use type: Cigarette e-Cigarette/Vaping Use: Never Used Second Hand Smoke Exposure: No service: Yes Current occupational status: employed Cognitive needs: No Hearing needs: No Vision needs: No Physical Exam Const Orientation/consciousness: patient oriented x3 HEENT Ears: hearing grossly normal bilaterally Neck Thyroid: Thyroid normal Lymphatic: no lymphadenopathy noted Resp Auscultation: clear to auscultation bilaterally Cardio Rate: regular rate Rhythm: regular rhythm Heart sounds: S1 normal heart sound present and S2 normal heart sound present Skin General skin exam: no rashes or lesions noted Neuro General: patient oriented x3, gait normal and no focal motor deficits Results Reviewed Results Reviewed: Laboratory Tests 01/02/25 02/18/25 03/29/25 11:40 15:22 15:40 Creatinine 1.58 H 1.94 H Estimated GFR 45 35 Hgb A1c (Clinic) 7.0 H Triglycerides 63 Cholesterol 116 LDL Cholesterol, Calc 71 HDL Cholesterol 33 L 08/27/25 15:47 Creatinine Estimated GFR Hgb A1c (Clinic) 8.4 H Triglycerides Cholesterol LDL Cholesterol, Calc HDL Cholesterol Assessment & Plan Assessment & Plan (1) Type 2 diabetes mellitus with other diabetic kidney complication: Code(s): E11.29 - Type 2 diabetes mellitus with other diabetic kidney complication Category: Surgical Plan: We will switch from Trulicity to Mounjaro. Discussed risks and benefits and adverse effects of this medication. Advised to restart the insulin. Sensor provided today in the office Patient has a smart phone and will download the jamshid and applied the sensor. He will let me know if he has any issues with this. He will contact me if he has any low blood sugars. Reviewed rule of 15 Advised short term follow up in 4 weeks. Sooner if needed. Patient understands and agrees with the plan. (2) Essential hypertension: Code(s): I10 - Essential (primary) hypertension Category: Medical Plan: He will continue current regimen. Short term follow up. Medications: New tirzepatide (Mounjaro) 2.5 mg (0.5 mL) subcut QWEEK 2 mL 1RF Refilled blood-glucose sensor (FreeStyle Tish 3 Plus Sensor device) Use daily As directed to monitor glucose 2 ea 5RF E08.29 - Diabetes mellitus due to underlying condition with other diabetic kidney complication, R80.9 - Proteinuria, unspecified, Z79.4 - USP (current) use of insulin insulin glargine (Basaglar KwikPen U-100 Insulin) 10 units (0.1 mL) subcut QPM 3 mL 5RF 30 days Coding Level of Care Code Est Pt Level 4 (41045) Add On Problem Visit Only Diagnoses Type 2 diabetes mellitus with other diabetic kidney complication E11.29 Essential hypertension I10
[2025-09-06 15:23] LABS: Glucose, Whole Blood 189 mg/dL (60-115)
--- OUTSIDE RECORDS SUMMARY | 2025-09-06 16:21 | XMS_ITS | Encounter Summary ---
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 [facility] [address] [facility] 3rd Floor, [address] [place] [address] Juma Lombardo MD [address] [place] [address] documented as of this encounter Visit Diagnoses Not on filedocumented in this encounter Care Teams Charter And Tour Bus Driver Relationship Specialty Start Date End Date Ronnell Glass MD [address] [place] [address] [place] [address] PCP - General Internal Medicine 10/11/19 documented as of this encounter Additional Source Comments The information contained in this document represents components of the legal health record. It is not the complete legal health record.[facility]
--- OUTSIDE RECORDS SUMMARY | 2025-09-06 16:21 | XMS_ITS | Clinical Summary ---
Author Organization [facility] Address [address] [address] Care Team Providers Care Customer Engagement Analyst Name Role Phone Ronnell Glass MD Primary Care Provider [phone] Medications amLODIPine (NORVASC) 10 MG tablet Take [...] to the 100-120s range today. -Diabetic diet -Fsyvn-su-thxb checks with meals and at bedtime -Patient [...] % PVNMA 08/29/2020 us Rtama Conversion LAB [id number] LICITED RESULTS Final Result PVNMA from Last 3 Months or Most Recently Relevant to Health Maintenance [place] [address] [place] [address] Care Teams Customer Engagement Analyst Relationship Specialty Start Date End Date Ronnell Glass MD [address] [place], [place] [id number] PCP - General 09/29/20
--- OUTSIDE RECORDS SUMMARY | 2025-09-06 16:21 | XMS_ITS | Encounter Summary ---
Author Organization 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 encounter Plan of Treatment Upcoming Encounters Date Type Department Care Team (Late Contact Info) Description 10/04/2025 11:20 AM EST Office Visit [facility] [address]rd Floor, [address] [place] [address] Juma Lombardo MD [address] [place] [address] [email or web address] documented as of this encounter Visit Diagnoses Not on filedocumented in this encounter Care Teams Delivery Assistant Relationship Specialty Start Date End Date Ronnell Glass MD [address] [place] [address] Dr Brady [address] [place] [address] PCP - General Internal Medicine 10/11/19 documented as of this encounter Additional Source Comments The information contained in this document represents components of the legal health record. It is not the complete legal health record.[facility]
--- OUTSIDE RECORDS SUMMARY | 2025-09-06 16:21 | XMS_ITS | Patient Health Record ---
[facility] Organization [facility] Address [address] [place] [address] Care Team Providers Care Hopper Operator Name Role Phone Quan RUCKER, Newcomb Primary Care Provider Unava Candy Wells Unavailable [phone] Allergies No Known Allergies Results Component Value [...] Polyneuropathy due to type 2 diabetes mellitus (506283637) Type 2 diabetes mellitus with diabetic polyneuropathy (E11.42) Active confirmed Problem Acquired hammer toe of left foot (5595316487577599 ) Hammertoe of left foot (M20.42) Active confirmed Problem Acquired hammer toe of right foot (3907355257276792 ) Hammertoe of right foot (M20.41) Active confirmed Problem Diabetic neuropathic arthropathy (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) 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) Active confirmed Problem Arthropathy associated with a neurological disorder (20395114) Charcot's joint of foot, right (M14.671) Active confirmed Vital Signs Blood pressure diastolic 78 mm Hg 08/13/2025 Height 5ft9in in 08/13/2025 Blood pressure systolic 120 mm Hg 08/13/2025 Weight 262 lbs 08/13/2025 BMI 38.69 kg/m2 08/13/2025 Encounters Encounter Location Date Provider Diagnosis [address] [address] 10/30/2024 Candy Sandhu Charcot's joint of foot, [...] exposed L97.522 and Toe osteomyelitis, left M86.[address] [address] 11/06/2024 Candy Sandhu Charcot's joint of foot, right M14.671 ; Cellulitis of foot, left L03.116 ; Type 2 diabetes mellitus with diabetic polyneuropathy E11.42 ; Type 2 diabetes mellitus with Charcot's joint of right foot E11.610 ; Other hammer toe(s) (acquired), left foot M20.42 and Neuropathic ulcer 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 L97.[address] [address] 11/13/2024 Candy Sandhu Charcot's joint of foot, right M14.671 ; Cellulitis of foot, left L03.116 ; Type 2 diabetes mellitus with diabetic polyneuropathy E11.42 ; Type 2 diabetes mellitus with Charcot's joint of right foot E11.610 ; Other hammer toe(s) (acquired), left foot M20.42 and Neuropathic ulcer 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 L97.[address] [address] 02/12/2025 Candy Perica Type 2 diabetes mellitus with diabetic polyneuropathy E11.42 and Tinea unguium B35.[address] [address] 05/14/2025 Candy Perica Type 2 diabetes mellitus with diabetic polyneuropathy E11.42 ; Abscess of toe, right L02.611 ; Tinea unguium B35.1 ; Charcot's joint of foot, right M14.671 and Type 2 diabetes mellitus with Charcot's joint of right foot E11.[address] [address] 05/24/2025 Candy Mckaya Type 2 diabetes mellitus with diabetic polyneuropathy E11.42 and Abscess of toe, right L02.[address] [address] 08/13/2025 Candy Perica Type 2 diabetes mellitus with diabetic polyneuropathy E11.42 ; Other hammer toe(s) (acquired), left foot M20.42 and Tinea unguium B35.[address] [address] 10/22/2024 Candy Mckaya [address] [address] 10/30/2024 Candy Perica [address] [address] 10/30/2024 Candy Perica [address] [address] 10/30/2024 Candy Perica [address] [address] 10/30/2024 Candy Sandhu [facility] [address] [address] 10/30/2024 Candy Sandhu [facility] [address] [address] 10/31/2024 Candy Sandhu [facility] [address] [address] 01/30/2025 Candy Sandhu [facility] Encounter Date Diagnosis (ICD Code) Assessment Notes [...] Provider Name:Candy ruiz, 11/12/2025 03:15:00 PM, [address] [place], [address], Insurance Providers Payer Name Payer Address Payer Phone Subscriber Number Group Number Insured Name Patient Relationship to Insured Coverage Start Date Coverage End Date [facility] [address] [place] [address] [id number] Quintin Chacon Self - patient is the insured Medical (General) History Medical History History ICD Code type II diabetes Heart disease Chicken pox Pacemaker Surgical History Surgery Date(Month/Year) cardiac pacemeker 04/15/2020 amputation, right toe 12/23/2020 angioplasty 04/12
--- OUTSIDE RECORDS SUMMARY | 2025-09-06 16:21 | XMS_ITS | Clinical Summary ---
Author Organization [facility] Address [address] [address] Phone Care Team Providers Care Engineering Director Name Role Phone Ronnell Glass MD Primary Care Provider [phone] [phone] Allergies Active Allergy Reactions Criticality Noted Date [...] to the 100-120s range today. -Diabetic diet -Fdhup-sk-lqzx checks with meals and at bedtime -Patient takes metformin 1000 mg twice daily which was held at admission Complete heart block Assessment & Plan (07/12/2025 1:34 PM EDT): Cardiac pacemaker in situ. Assessment & Plan (10/14/2019 4:13 PM EST): EKG does show first-degree AV block with IA 310 ms. Bradycardic after clonidine. Echocardiogram was reviewed by Dr. Stone, also reviewed recent telemetry today which showed possible 2nd degree block. Patient remains asymptomatic. Plan for holter monitor on discharge. Encounters Date Type Department Care Team Description 07/12/2025 1:30 PM EDT Office Visit [facility] [address], [address] [place] [address] Tia Timmons DNP Complete heart block (Primary Dx); HFrEF (heart failure with reduced ejection fraction); Persistent atrial fibrillation; Primary hypertension; Mixed hyperlipidemia 06/28/2025 2:07 PM EDT - 06/28/2025 11:59 PM EDT Hospital Encounter [facility] [address] [place] [address] Juma Lombardo MD Discharge Disposition: Home or Self Care 04/24/2025 Procedure Pass [facility] [place] [address] from Last 3 Months Family History Medical [...] 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 us Juma Lombardo MD CV ECHO ORDERABLES Final Resu lt * (ABNORMAL) Basic metabolic panel (10/15/2019 5:34 AM EST) SODIUM 137 133 - 146 mmol/L [facility] CHLORIDE 102 96 - 108 mmol/L [facility] POTASSIUM 4.1 3.3 - 5.1 mmol/L [facility] CO2 22 21 - 35 mmol/L [facility] BUN 25(H) 6 - 19 mg/dL [facility] CREATININE 1.90(H) 0.5 - 1.5 mg/dL [facility] GLUCOSE 124(H) 70 - 99 mg/dL [facility] CALCIUM 7.9(L) 8.4 - 10.3 mg/dL [facility] EGFR 39(L) >59 mL/min/1.7 3m2 [facility] Comment:If patient is black, multiply result by 1.159. Estimated glomerular filtration rate calculated using the CKD-EPI equation. ANION GAP 17 10 - 20 mmol/L [facility] Blood 10/15/2019 5:34 AM EST 10/15/2019 6:23 AM EST us Katharine Nathan MD LAB BLOOD BKR ORDERABLES Fin al Result Performing Organization Address City/[facility]/ZIP Co de Phone Number [address] [address] * (ABNORMAL) Microalbumin/creatinine ratio, random urine (10/12/2019 11:39 PM EST) URINE MICROALBUMIN >440.0(H) 0 - 2.3 mg/dL [facility] URINE CREATININE 301 mg/dL [facility] MICROALB/CRE RATIO NOT CALCULATED 0 - 20 mg/g Cre [facility] Comment:due to Microalbumin >440 Urine (Urine) 10/12/2019 11: 39 PM EST 10/13/2019 12:02 AM EST us Robert Elizabeth MD LAB URINE ORDERABLES Final Re sult Performing Organization Address [facility] Co de Phone Number [address] [address] from Last 3 Months or Most Recently Relevant to Health Maintenance Insurance [facility] Member Subscriber Plan / Payer (Ef fective 1990-Present) Name:Quintin Chacon Relation to Subscriber:Self Name:QUINTIN CHACON Payer ID:[id number] (NAIC) Group ID:[id number] Type:PPO Address: [address] Member Subscriber Plan / Payer (Ef fective 1990-Present) Name:Quintin Chacon Relation to Subscriber:Self Name:QUINTIN CHACON Payer ID:[id number] (NAIC) Group ID:[id number] Type:PPO Address: [address] Member Subscriber Plan / Payer (Ef fective 1990-Present) Name:Quintin Chacon Relation to Subscriber:Self Name:QUINTIN CHACON Payer ID:[id number] (NAIC) Group ID:[id number] Type:PPO Address: [address] [facility] Member Subscriber Plan / Payer (Ef fective 1990-Present) Name:Quintin Chacon Relation to Subscriber:Self Name:QUINTIN CHACON Payer ID:[id number] (NAIC) Group ID:[id number] Type:PPO Address: [address] Member Subscriber Plan / Payer (Ef fective 1990-Present) Name:Quintin Chacon Relation to Subscriber:Self Name:QUINTIN CHACON Payer ID:[id number] (NAIC) Group ID:[id number] Type:PPO Address: [address] [facility] Member Subscriber Plan / Payer (Ef fective 1990-Present) Name:Quintin Chacon Relation to Subscriber:Self Name:QUINTIN CHACON Payer ID:[id number] (NAIC) Group ID:[id number] Type:PPO Address: [address] Member Subscriber Plan / Payer (Ef fective 1990-Present) Name:Quintin Chacon Relation to Subscriber:Self Name:QUINTIN CHACON Payer ID:[id number] (NAIC) Group ID:[id number] Type:PPO Address: [address] [facility] Member Subscriber Plan / Payer (Ef fective 1990-Present) Name:Quintin Chacon Relation to Subscriber:Self Name:QUINTIN CHACON Payer ID:[id number] (NAIC) Group ID:[id number] Type:PPO Address: [address] Advance Directives For more information, please contact: [phone] (9AM - 5PM [place], Tuesday-Tuesday) * Full Code (Confirmed) (Latest Code Status on File) Date Activated Date Inactivated Comments 10/11/2019 5:52 PM 10/15/2019 7:37 PM Question Answer Comments Code Status Confirmed With: Patient Care Teams Engineering Director Relationship Specialty Start Date End Date Ronnell Glass MD [address] [place] [address] [place] [address] PCP - General Internal Medicine 10/11/19 Additional Source Comments The information contained in this document represents components of the legal health record. It is not the complete legal health record.[facility]
== END 2025-09-06 15:37 | disposition home or self-care (01) ==
LOC: HO.ENCR 15:09
PROVIDERS: PCP Internal Medicine; Visit Provider Physician Assistant
DX: E11.29 Type 2 diabetes mellitus with other diabetic kidney complication (principal); I10 Essential (primary) hypertension

== ENCOUNTER → 2025-09-06 15:09 | Outpatient (BNVA) | payer BC, SELFPAY | PROVIDERS: PCP Internal Medicine; Visit Provider Physician Assistant | DX: E11.29 Type 2 diabetes mellitus with other diabetic kidney complication (principal) | CPT/HCPCS: 82947 ==